=== PATIENT | female | born 1950 | race Caucasian/White ===

== ENCOUNTER 2024-05-26 19:47 | Inpatient (IN) | payer OTHER, MEDICARE, SELFPAY ==
[2024-05-26] VITALS (11 sets, daily range): BP systolic 102–119; BP diastolic 44–68; BMI 35.0; BMI 33.7
--- NOTE | 2024-05-26 15:47 | ED.GENMED ---
History of Present Illness
General
Chief Complaint: Abnormal Lab Value
Source: patient
Exam Limitations: none
Time Seen by Provider: 05/26/24 15:41
Nursing documentation reviewed up to this point in time: agreed with
History of Present Illness
History of Present Illness:
73-year-old female with past medical history of A-fib on Eliquis, hypertension, kidney disease on dialysis presents to the emergency department today with concerns of low hemoglobin. Patient present with daughter. Daughter reports that patient is
currently living at [facility] for medical rehab from her most recent hospitalization last month. Patient was admitted from April 19 to approximately May 19 for septic shock. During that hospitalization, she was started on Eliquis
when she went into A-fib, and was also put on oxygen. Patient now wears 3 L of oxygen daily. She had to receive blood transfusions at that time for low hemoglobin which at the time they attributed to chronic kidney disease. Patient states that at
the rehab facility, they checked her blood work daily and stated when they did have routine check of her blood work, they noted her hemoglobin to be 6.0. Baseline hemoglobin unknown. Patient is unsure if she has had a GI bleed before. Patient
denies dizziness, lightheadedness, chest pain, shortness of breath, abdominal pain, rectal bleeding, hematemesis. Of note, patient developed C. difficile during her last week of hospitalization and recently finished antibiotics.
Review of Systems
Review of Systems
All Other Systems: ROS reviewed and negative except as documented in HPI and ROS
Phy Exam
Physical Exam
Physical Exam:
General: Patient is well appearing and in no acute distress; non-toxic
Skin: Pallor noted, shingles rash noted to left anterior and posterior chest wall, maculopapular rash noted to inguinal folds
Head: Normocephalic, atraumatic
Eyes: Sclera non-icteric. EOMs intact.
Cardiac: Regular rate and rhythm, no murmurs
Peripheral Vascular: No lower extremity swelling or edema
Pulm: Normal respiratory effort, no wheezes, rales, or rhonchi
Abdomen: No abdominal tenderness to palpation, no palpable masses
Genitourinary: No perirectal masses or lesions, no carl bleeding from the rectum, dark loose stool noted within rectal vault
Neuro: CN II-XII intact, no focal neurologic deficits.
Psychiatric: Appropriate mood and affect.
Course
Orders/Labs/Results
Orders:
Orders
05/26/24 16:18
Type And Crossmatch [Type+Screen] Urgent
Complete Blood Count/With Diff Urgent
Comprehensive Metabolic Panel Urgent
05/26/24 17:24
ABO2 Urgent
[employer] Wristband Number:
Associate notified that ABO2 has been ordered: [id number]
Date: 05/26/24
Time: 16:50
Socket Puller ID: [id number]
Urinalysis Reflex To Culture Urgent
Date Specimen was Collected: 05/26/24
Time Specimen was Collected: 17:23
Urine Microscopic Reflex Cult Urgent
Stool Culture Urgent
MIGUEL ANGEL Source: Feces/Stool
Specimen Description:
Date Specimen was Collected: 05/26/24
Time Specimen was Collected: 17:23
Urine Culture Urgent
MIGUEL ANGEL Source: U
Specimen Description:
Date Specimen was Collected: 05/26/24
Time Specimen was Collected: 17:23
05/26/24 17:38
Blood Bank Products [* Blood Bank Products] Urgent
Blood Bank Products: *Packed RBC Leuko(PRBC's)
Quantity: 1
Transfuse Today: Yes
Reason: Anemia
05/26/24 18:00
Pantoprazole 80 mg/100 ml Nss [Protonix] 80 mg in 100 ml IV Q10H
Abnormal Lab Results
05/26/24 05/26/24
16:18 17:24
RBC 2.21 L 10^6/uL
(4.20-5.40)
Hgb 6.5 L* g/dL
(12.0-16.0)
Hct 20.7 L* %
(37.0-47.0)
MCHC 31.4 L g/dL
(33.0-37.0)
RDW 17.3 H %
(11.5-14.5)
Abs Immat Gran (auto) 0.1 H 10^3/uL
(0-0.05)
Immature Gran % 1.6 H %
(0-0.5)
BUN 18 H mg/dl
(7-17)
Creatinine 2.2 H mg/dL
(0.6-1.0)
Calcium 8.3 L mg/dl
(8.4-10.2)
Total Protein 5.5 L g/dl
(6.3-8.2)
Albumin 2.2 L g/dl
(3.5-5.0)
Ur Occult Blood Reflex 2+ A
(Negative)
Leukocyte Esterase Rfl 2+ A
(Negative)
Urine WBC (Reflex) 30-40 A /HPF
(0-5)
Urine Bacteria (Reflex) Many A
(Negative)
Urine Albumin (Reflex) 1+ A
(Neg - Trace)
Crossmatch IS Only See Detail
05/26/24 16:18
05/26/24 16:18
Vital Signs
Initial and Last Documented VS:
Initial Vital Signs
Temp Pulse Resp BP Pulse Ox
98.0 F 84 20 117/62 100
05/26/24 15:44 05/26/24 15:44 05/26/24 15:44 05/26/24 15:44 05/26/24 15:44
Last Documented Vital Signs
Temp Pulse Resp BP Pulse Ox
98.0 F 84 23 110/51 100
05/26/24 15:44 05/26/24 18:00 05/26/24 16:24 05/26/24 18:00 05/26/24 17:30
MDM/Problems Addressed
Differential Diagnosis Includes:
See below
MDM/Problems Addressed:
NUMBER AND COMPLEXITY OF PROBLEMS ADDRESSED AT THE ENCOUNTER
� Chronic conditions affecting care: Kidney disease on dialysis, A-fib on Eliquis, hypertension, hyperlipidemia
� Acute Exacerbation and/or Progression of Chronic Illness: Kidney disease
� Differential Diagnosis includes: Bleeding gastric ulcer, duodenal ulcer, bleeding colitis, spontaneous bleeding from Eliquis, anemia of chronic disease secondary to CKD
Laboratory Studies: Hemoglobin 6.5 today, 6 on lab work noted from [facility]; BUN 18 creatinine 2.2, GFR 23.24 unknown baseline
Other:
� Review of other/old records: No previous records in [facility] to review, no discharge summaries to review
� Clinical information was obtained by an independent historian: Spoke to daughter who was able to provide much of the medical history
� Prescriptions/Medications Considered but not given: n/a
� Further testing considered but not performed:
RISK OF COMPLICATIONS AND/OR MORBIDITY OR MORTALITY OF PATIENT MANAGEMENT
� Social determinants of health affecting care: n/a
� Discussion with other providers: ER attending
� Escalation of care including admission/observation vs risk of discharge considered:
73-year-old female presents emergency department today with concerns of a low hemoglobin noted incidentally on lab work. Patient is staying at [facility] for medical rehab from her recent hospitalization for septic shock. Patient has had to
receive blood transfusions for anemia before and this was attributed to chronic kidney disease. However today she does have dark stools that are Hemoccult positive. In light of this finding, as well as in light of her recent colitis, will admit
for workup of GI bleeding, patient will receive blood transfusion. There was concern about patient having no access to visitors of concern for recent COVID infection. When talking to daughter, it appears that she was COVID-positive on April 19,
2023, so this currently is not a concern. Patient did have C. difficile recently, however she finished her full course of antibiotics. I did allow patient's daughter to be present at bedside even though there is concern for communicable disease
however I do feel that the benefits outweigh the risk considering patient's issues with dementia and memory loss. I did advise patient's daughter to remain within the room with a mask on. Patient referred for admission
*Critical Care Note
Total Time (30-74mins, 75-104mins- exclusive of procedures): Not Applicable
ED Attending Note
-
Portions of this chart may have been created with voice recognition software.� Occasional wrong word or��sound alike� substitutions may have occurred due to the inherent limitations of voice recognition software.
Discharge Plan
Departure
Patient Disposition: Admit
Date of Disposition: 05/26/24
Time of Disposition: 17:59
Admit to: Med/Surg
Presentation/result/management discussed w/ accepting MD/DO: Hospitalist
Patient with high blood pressure during this ER visit?: No
Condition: Fair
Discharge Problem:
Anemia, Heme positive stool
Prescriptions:
No Action
amiodarone 200 mg Tablet
200 mg PO DAILY
miconazole nitrate 2 % Powder
1 applic TOPICAL TID
valacyclovir 500 mg Tablet
500 mg PO DAILY
Patient Comments:
05/26/24: take for 1 week from 05/22/24-05/30/24
acetaminophen 500 mg Tablet
500 mg PO Q8HPRN PRN (Reason: mild pain)
magnesium hydroxide [Milk of Magnesia] 400 mg/5 mL Suspension
30 ml PO [id number] PRN (Reason: no bm 3 days)
bisacodyl 10 mg Suppository
10 mg AR DAILYPRN PRN (Reason: if no result from mom)
pantoprazole 40 mg Tablet,Delayed Release (Dr/Ec)
40 mg PO DAILY
folic acid 1 mg Tablet
1 mg PO DAILY
montelukast 10 mg Tablet
10 mg PO DAILY
gabapentin 100 mg Capsule
100 mg PO DAILY
albuterol sulfate [Ventolin HFA] 90 mcg/actuation Hfa Aerosol Inhaler
2 puff INHALATION R Q6HPRN PRN (Reason: wheezing)
brompheniramine-phenylephrine 2-5 mg/5 mL Liquid
5 ml PO Q4HPRN PRN (Reason: cough/congestion)
midodrine 10 mg Tablet
10 mg PO TID
Rx Instructions:
Hold for SBP>130
rosuvastatin 5 mg Tablet
5 mg PO DAILY
zinc oxide 10 % Cream
1 applic TOPICAL TID
Rx Instructions:
L abdominal fold/sacral gluteal cleft
zinc oxide 10 % Cream
1 applic TOPICAL DAILYPRN PRN (Reason: soilage)
Rx Instructions:
left abdominal fold/sacral gluteal cleft
ferrous gluconate 324 mg (38 mg iron) Tablet
324 mg PO Q48H
melatonin 5 mg Tablet
5 mg PO HS
Dulera 200-5 mcg/actuation Hfa Aerosol Inhaler
2 puff INHALATION R BID
Eliquis 5 mg Tablet
5 mg PO BID
Referrals:
Devon Friedman MD [Family Provider] -
Interventions
Interventions:
*Risk Screen - Suicide Last Done: 05/26/24 15:59
*General Assessment Last Done: 05/26/24 15:59
*Neglect/Abuse Screening Last Done: 05/26/24 15:59
*ED COVID-19 Vaccine History Last Done: 05/26/24 15:59
Discharge Date and Time
Print Language: MALAYSIAN
[2024-05-26 16:33] LABS: % Basophils 0.5 % (0-2); % Eosinophils 2.3 % (0-6); % Immature Granulocytes 1.6 % (0-0.5); % Lymphocytes 30.4 % (20.5-51.1); % Monocytes 7.4 % (1.7-9.3); % Neutrophils 57.8 % (42.2-75.2); Absolute Eosinophils 0.2 10^3/uL (0-0.7); Absolute Immature Granulocytes 0.1 10^3/uL (0-0.05); Absolute Lymphocytes 2.5 10^3/uL (1.2-3.4); Absolute Monocytes 0.6 10^3/uL (0.1-0.6); Absolute Neutrophils 4.8 10^3/uL (1.4-6.5); Hematocrit 20.7 % (37.0-47.0); Hemoglobin 6.5 g/dL (12.0-16.0); Mean Corp Hgb Conc. 31.4 g/dL (33.0-37.0); Mean Corpuscular Hgb 29.4 pg (27.0-31.0); Mean Corpuscular Volume 93.7 fL (81.0-99.0); Mean Platelet Volume 9.5 fL (7.4-10.4); Nucleated Red Blood Cells % 0 %; Platelet Count 198 10^3/uL (130-400); Red Blood Cell Count 2.21 10^6/uL (4.20-5.40); Red Cell Dist. Width 17.3 % (11.5-14.5); White Blood Cell Count 8.2 10^3/uL (4.8-10.8)
[2024-05-26 16:51] LABS: ALT (SGPT) 26 U/L (0-35); AST (SGOT) 22 U/L (14-36); Albumin 2.2 g/dl (3.5-5.0); Alkaline Phosphatase 99 U/L (38-126); Blood Urea Nitrogen 18 mg/dl (7-17); Calcium 8.3 mg/dl (8.4-10.2); Carbon Dioxide 27 mmol/L (22-30); Chloride 103 mmol/L (98-107); Estimated Creatinine Clearance 24 ml/min; Glucose 73 mg/dl (70-99); Potassium 4.3 mmol/L (3.5-5.1); Sodium 136 mmol/L (135-145); Total Bilirubin 0.5 mg/dl (0.2-1.3); Total Protein 5.5 g/dl (6.3-8.2); eGFR 23.24
[2024-05-26 17:34] LABS: Urine Albumin 1+ (Neg - Trace); Urine Bilirubin Negative (Negative); Urine Character Very Cloudy (Clear); Urine Color Yellow; Urine Glucose Negative (Negative); Urine Ketone Negative (Negative); Urine Leukocyte 2+ (Negative); Urine Nitrite Negative (Negative); Urine Occult Blood 2+ (Negative); Urine Urobilinogen Negative (Neg - 1+)
[2024-05-26 17:48] LABS: Urine Bacteria Many (Negative); Urine Red Blood Cell 0-2 /HPF (0-2); Urine White Cell 30-40 /HPF (0-5)
--- NOTE | 2024-05-26 18:11 | HPS.HSE ---
Family Physician
-
Family Physician: Devon Friedman
Chief Complaint
-
Abnormal lab values
History of Present Illness
Patient is a 73-year-old female with past medical history significant for chronic kidney disease on dialysis, a-fib and recent history of c-diff colitis who presented to [facility] for evaluation of abnormal labs found with routine lab work.
Patient resides at [facility] for rehab post 30 day hospitalization at [facility] in [place]. Patient was admitted for septic shock and started HD during hospitalization and continues with HD at [facility]. Patient did receive
transfusion during previous hospitalization for anemia attributed to CKD. Today patient had routine lab work completed at [facility] resulting in Hgb 6.0, patient was asymptomatic and sent to ED for evaluation and treatment. Patient stool is
heme positive.
Medical History
Past Medical History
Past Medical History: Reports Other
Additional Past Medical History:
chronic kidney disease on dialysis
a-fib
herpes zoster
hyperlipidemia
hypoxic respiratory failure
Hx c-diff colitis
osteoarthritis
Past Surgical History: Reports Other
Additional Past Surgical History:
Left hip replacement
Social History
Tobacco: Former Smoker (quit 20 years ago)
Alcohol: Occasional
Drug: None
Personal: Single
Living: Care Home
Employment: Retired
Family History
Family History: Other (Mother: HTN, CAD; Sister: Colon Cancer)
Allergies / Home Medications
Allergies reflects when Allergies were last updated in [facility].
Home Medications with original date entered in [facility]
Allergy/Medication List:
Allergies
Allergy/AdvReac Type Severity Reaction Status Date / Time
cephalexin Allergy Unknown Verified 05/26/24 15:44
codeine Allergy Nausea / Verified 05/26/24 15:44
Vomiting
Home Medications
acetaminophen 500 mg tablet 500 mg PO Q8HPRN PRN mild pain 05/26/24
albuterol sulfate 90 mcg/actuation aerosol inhaler (Ventolin HFA) 2 puff inhalation R Q6HPRN PRN wheezing 05/26/24
amiodarone 200 mg tablet 200 mg PO DAILY 05/26/24
apixaban 5 mg tablet (Eliquis) 5 mg PO BID 05/26/24
bisacodyl 10 mg rectal suppository 10 mg WV DAILYPRN PRN if no result from mom 05/26/24
brompheniramine-phenylephrine 2 mg-5 mg/5 mL oral liquid 5 ml PO Q4HPRN PRN cough/congestion 05/26/24
ferrous gluconate 324 mg (38 mg iron) tablet 324 mg PO Q48H 05/26/24
folic acid 1 mg tablet 1 mg PO DAILY 05/26/24
gabapentin 100 mg capsule 100 mg PO DAILY 05/26/24
magnesium hydroxide 400 mg/5 mL oral suspension (Milk of MagnKOALA.CH) 30 ml PO [id number] PRN no bm 3 days 05/26/24
melatonin 5 mg tablet 5 mg PO HS 05/26/24
miconazole nitrate 2 % topical powder 1 applic topical TID under b/l breast,groin,ab 05/26/24
midodrine 10 mg tablet 10 mg PO TID 05/26/24
mometasone-formoterol HFA 200 mcg-5 mcg/actuation aerosol inhaler (Dulera) 2 puff inhalation R BID 05/26/24
montelukast 10 mg tablet 10 mg PO DAILY 05/26/24
pantoprazole 40 mg tablet,delayed release 40 mg PO DAILY 05/26/24
rosuvastatin 5 mg tablet 5 mg PO DAILY 05/26/24
valacyclovir 500 mg tablet 500 mg PO DAILY 05/26/24
zinc oxide 10 % topical cream 1 applic topical DAILYPRN PRN soilage 05/26/24
zinc oxide 10 % topical cream 1 applic topical TID 05/26/24
Review of Systems
-
History Source: Patient
Constitutional: Reports No Symptoms
EENT: Reports No Symptoms
Respiratory: Reports No Symptoms
Cardiac: Reports No Symptoms
Abdomen/GI: Reports No Symptoms
: Reports No Symptoms
Musculoskeletal: Reports No Symptoms
Skin: Reports No Symptoms
Neurological: Reports No Symptoms
Endocrine: Reports No Symptoms
Hematologic/Lymphatic: Reports No Symptoms
Psych: Reports No Symptoms
Physical Exam
Vital Signs
Vital Signs
Temp Pulse Resp BP Pulse Ox
98.0 F 84 23 110/51 100
05/26/24 15:44 05/26/24 18:00 05/26/24 16:24 05/26/24 18:00 05/26/24 17:30
Physical Exam
General: Well Developed, Well Nourished, No Apparent Distress, Comfortable and Conversant
HEENT: NormoCephalic, Moist mucous membranes, Atraumatic, PERRLA, [place] Conjunctivae, Nose Appears Normal and Ears Appear Normal
Respiratory: Clear and Non Labored Respirations
Cardiac: S1/S2 and Regular Rhythm; No Murmur, Rub or Gallop
Breast: Deferred by me
GI: Soft, Non Tender, Non Distended and Normal Bowel Sounds; No Organomegaly
Rectal: Deferred by Provider
Genito-urinary: Deferred by me
Musculoskeletal: No Clubbing, No Cyanosis and No Edema
Skin: Warm and Rash (rash under left breast wrapping around flank to left back; excoriation to perineal area)
Neuro: Awake, AO x 3 and Nonfocal/grossly intact
Hematologic/Lymphatic: No Lymphadenopathy
Psych: Calm and Intact Judgment/Insight
Laboratory Results
-
05/26/24 16:18
05/26/24 16:18
Laboratory Results
Total Bilirubin 0.5 mg/dl (0.2-1.3) 05/26/24 16:18
AST 22 U/L (14-36) 05/26/24 16:18
ALT 26 U/L (0-35) 05/26/24 16:18
Alkaline Phosphatase 99 U/L (38-126) 05/26/24 16:18
Data Reviewed
-
Lab Data: Labs Reviewed by me (Hgb 6.5, Hct 20.7, BUN 18, Creat 2.2)
Impression/Plan
-
IMPRESSION/PLAN:
#Acute GI bleed
#anemia
Hgb 6.5/Hct 20.7
Heme positive stool
frequent loose stools with recent C. Diff history
- Admit to telemetry
- 1 unit PRBCs
- Follow H/H in AM
- Consult GI
- hold Eliquis
- Protonix BID
- Check C. diff and norovirus
- continue ferrous gluconate
- check iron studies
#chronic kidney disease on dialysis
BUN 18, Creat 2.2
HD schedule --
- Consult nephrology
- follow BMP
- continue midodrine
#acute urinary retention
#UTI
straight cath in ED with 1100cc cloudy yellow urine out, placed larios for acute retention
- UA PROCESS TECH
- start Zosyn
#a-fib
- continue amiodarone
- hold Eliquis
#herpes zoster
rash under left breast that round to left back
- continue valacyclovir
#hyperlipidemia
- continue rosuvastatin
#hypoxic respiratory failure
- continue O2 PRN, titrate as needed
#Hx c-diff colitis
- start PO Vanco fro prophylaxis
#osteoarthritis
Code status: DNR
DVT Prophylaxis: SCDs
[2024-05-26] MEDS: PROTONIX 100 IV (18:16)
--- NOTE | 2024-05-26 18:31 | EDRN ---
Per the pts daughter, the pt tested + COVID on April 19, NOT May 19.
Also the pt recently finished antibiotic treatment for C. Diff.
the pt was admitted at [facility] in [place] for approx 30 days prior to being placed at [facility] one week ago for rehab. the pt is currently Non-ambulatory
the pt started treatment for Shingles on May 22
--- NOTE | 2024-05-26 18:47 | W.PN.UPDATE ---
Update Note
Progress Note Update
I saw and examined the patient.
The SPRAY DRY OPERATOR or PA's note was reviewed and I agree with the note.
Comment: 73-year-old female with past medical history of recent C. difficile, recently diagnosed herpes zoster, ESRD on hemodialysis, history of septic shock secondary to groin abscess, paroxysmal atrial fibrillation who had prolonged
hospitalization at [facility] and recently moved to [place] came here today with anemia. Had urinary retention in the ED where Griffiths catheter was inserted. Urine is very cloudy appears to have UTI. Start antibiotics. Start p.o.
vancomycin as prophylaxis given recent C. difficile. Still having loose stool. Check C. difficile, norovirus. Continue with valacyclovir. Consult ID. Consult GI and nephrology. DC PPI drip. Start PPI twice daily for now. Heme positive stool.
Denies any previous history of colonoscopy. CODE STATUS discussed. DNR
I spent a total of 79 minutes with the patient or on the floor. More than 50% of this time involved counseling and coordination of care.
[2024-05-26 19:28] LABS: Iron 83 ug/dl (37-170)
[2024-05-26] MEDS: PROTONIX IV 40 MG IV (19:28)
[2024-05-26] MEDS: NSS (PRESERVATIVE FREE) 10 ML IV (19:28)
[2024-05-26 19:37] LABS: Percent Saturation 44 % (20-50); Total Iron Binding Capacity 188 ug/dl (265-497)
[2024-05-26 20:20] LABS: Folate > 20.0 ng/ml (2.76-20); Vitamin B12 903 pg/ml (239-931)
--- NOTE | 2024-05-26 22:00 | PTCARENOTE ---
Rec'd Patient from ER. Stable vitals. Blood transfusing as ordered. No complaints. SR in 70s on tele. POC reviewed with patient.
[2024-05-26] MEDS: SYMBICORT 160/4.5 MCG INHALER INH (22:35)
[2024-05-26] MEDS: ZOSYN 50 IV (23:10)
[2024-05-26] MEDS: ZINC OXIDE OINTMENT 1 APPLIC TOPICAL (23:11)
[2024-05-26] MEDS: DESENEX/MITRAZOL/ZEASORB 1 APPLIC TOPICAL (23:11)
[2024-05-26] MEDS: FIRVANQ 125 MG PO (23:11)
[2024-05-27] VITALS (7 sets, daily range): BP systolic 93–112; BP diastolic 43–58; BMI 33.7; BMI 34.3
[2024-05-27] MEDS: FIRVANQ 125 MG PO ×3 (05:28→22:10)
[2024-05-27] MEDS: ZOSYN 50 IV (05:28)
[2024-05-27] MEDS: SYMBICORT 160/4.5 MCG INHALER 2 PUFF INH ×2 (08:17→19:19)
--- NOTE | 2024-05-27 08:40 | WOUNDNOTE ---
L THIGH (MEDIAL UPPER)
--- NOTE | 2024-05-27 08:40 | WOUNDNOTE ---
L THIGH (UPPER ANTERIOR)(undermines approximately 3cm medially)
--- NOTE | 2024-05-27 08:41 | WOUNDNOTE ---
L CALF (POSTERIOR MEDIAL)
--- NOTE | 2024-05-27 08:42 | WOUNDNOTE ---
BUTTOCKS/THIGH (POSTERIOR)
--- NOTE | 2024-05-27 08:43 | WOUNDNOTE ---
L CHEST (UNDER BREAST AREA)
--- NOTE | 2024-05-27 08:50 | WOUNDNOTE ---
[facility] RN note: Patient admitted with GIB, UTI. Patient admitted from [facility]. She was at [facility] prior.
See H&P for complete history.
PMH: CKD on HD, a fib (Eliquis), recent c diff, herpes zoster, obesity, pressure injuries, L thigh full thickness wound suspect was an abscess originally. Patient stated she had surgery on her L thigh (I+D?).
Wound Location and type/assessment: Patient admitted with: L anterior upper thigh full thickness wound to subcutaneous layer, pink that can be visualized, undermines medially about 3cm, mod-large amount of murky serous drainage. Skin mild red
around wound suspect r/t moisture. L medial upper thigh with a linear dermal ulcer suspect from rubbing and previous diaper use. Sacral crease stage 2 pressure injury along with MASD and bilateral sacral buttocks stage 2 pressure injuries along with
MASD. Perineal MASD. L medial posterior thigh linear red ecchymotic area. Small abrasions on R posterior ankle/calf. Heels slow to libby red/boggy. L anterior, lateral and posterior chest/back with scattered zoster lesions. Patient on Valtrex.
Appetite: fair.
Pressure redistribution devices in place: [employer] Accumax. Heels off bed with pillow.
Plan: ABD pad applied on L flank/back lesions. L thigh packing/dressing changed. Zinc barrier ointment applied to sacral/buttocks/perineum. Do not think a silicone foam will work on sacrum d/t patient still having loose stools. Patient reports
diarrhea improved. Silicone border foam applied to L calf. Patient turned to L semi side lying position with help from RT Peace. Heels off bed with pillow with air chair cushion on top. Discussed with RN Thelma who plans to apply a Waffle air
overlay and switch to soft type o2 tubing around ears. t/c SPD and ordered a bariatric air chair c cushion.
Updated including murky drainage from L thigh wound and confirmed orders with Dr. Marcelino. Dakin't packing to be ordered for L thigh.
Care plan to be updated and will follow as needed.
Note to case management of equipment requested for discharge: Air mattress at [facility] is not already in place.
Recommend follow up at wound care center upon discharge.
--- NOTE | 2024-05-27 09:11 | CON.GI ---
Consultation
-
Date/Time Consultation Requested: 05/26/2024,23:16
Date/Time Consultation Performed: 05/27/2024,09:10
Requesting Provider: Evon Gotti
Performing Provider: Sylvain Goodwin
Reason for Consultation: Anemia/Stool heme positive
Medical History
Chief Complaint / HPI
Chief Complaint: Stool positive for occult blood
History of Present Illness:
Patient is a 73-year-old female with past medical history of end-stage renal disease, on hemodialysis 3 times a week on Saturday, and Saturday for 3 hours. She was recently prolonged hospitalization at [facility] for septic shock
secondary to groin abscess, was recently treated for C. difficile and herpes zoster infection. She was recently moved to [facility] rehab for physical therapy and Occupational Therapy and presented to emergency with asymptomatic anemia. She had
urinary retention in the ED, Griffiths catheter was inserted, and started on treatment for UTI based on her urine appearance and urine analysis report.
GI consulted for heme positive stools. According to the patient and her daughter she has poor diet with mostly fast foods soft foods, and mostly lacks any seafood, vegetables, are nutritious food. She has had kidney disease and it has slowly
progressed and was recently started on hemodialysis. She had recent episodes of sepsis due to groin abscess and C. difficile infection. She has arthritis and uses 15 to 20 tablets of ibuprofen in a month depending upon the pain severity and she
was recently started on Eliquis for atrial fibrillation last month. She reports recent weight loss due to being sick for the past 2 months, being nonambulatory, and decreased appetite.
Patient had 3-4 blood transfusions in April and 1 blood transfusion in May 26, 2024.
She denies any source of bleeding, heavy alcohol consumption, any recent travel, abdominal pain, blood in stools, hematemesis, GERD, indigestion, alternating bowel habits, shortness of breath, dizziness, headache, palpitations, decreased
concentrations, any past history of thyroid issues or any family history of blood disorders.
Past Medical History
Past Medical History: Arrhythmias (A.fib ,started on eliquis last month in ), Hypercholesterolemia, Renal Failure (Stage 4, On hemodialysis 3 days a week (Sat,sat,saturday) started last week) and Other (Recently diagnosed herpes zoster,
recently treated C. difficile, hypoxic respiratory failure, osteoarthritis)
Past Surgical History: Orthopedic (Left hip replacement)
Social History
Tobacco: Former Smoker (Quit 20 years ago)
Alcohol: Occasional
Drug: None
Personal: Single
Living: Care Home ([facility])
Employment: Retired
Family History
Family History: Cancer (Sister of colon cancer at the age of 73) and Hypertension (Mother)
Allergies / Home Medications
Allergy/AdvReac Type Severity Reaction Status Date / Time
cephalexin Allergy Unknown Verified 05/26/24 15:44
codeine Allergy Nausea / Verified 05/26/24 15:44
Vomiting
�Medication �Instructions �Recorded
acetaminophen 500 mg tablet 500 mg PO Q8HPRN PRN mild pain 05/26/24
albuterol sulfate 90 mcg/actuation 2 puff inhalation R Q6HPRN PRN 05/26/24
aerosol inhaler (Ventolin HFA) wheezing
amiodarone 200 mg tablet 200 mg PO DAILY 05/26/24
apixaban 5 mg tablet (Eliquis) 5 mg PO BID 05/26/24
bisacodyl 10 mg rectal suppository 10 mg ID DAILYPRN PRN if no result 05/26/24
from mom
brompheniramine-phenylephrine 2 5 ml PO Q4HPRN PRN cough/congestion 05/26/24
mg-5 mg/5 mL oral liquid
ferrous gluconate 324 mg (38 mg 324 mg PO Q48H 05/26/24
iron) tablet
folic acid 1 mg tablet 1 mg PO DAILY 05/26/24
gabapentin 100 mg capsule 100 mg PO DAILY 05/26/24
magnesium hydroxide 400 mg/5 mL 30 ml PO [id number] PRN no bm 3 days 05/26/24
oral suspension (Milk of Itzel)
melatonin 5 mg tablet 5 mg PO HS 05/26/24
miconazole nitrate 2 % topical 1 applic topical TID under b/l 05/26/24
powder breast,groin,ab
midodrine 10 mg tablet 10 mg PO TID 05/26/24
mometasone-formoterol HFA 200 2 puff inhalation R BID 05/26/24
mcg-5 mcg/actuation aerosol
inhaler (Dulera)
montelukast 10 mg tablet 10 mg PO DAILY 05/26/24
pantoprazole 40 mg tablet,delayed 40 mg PO DAILY 05/26/24
release
rosuvastatin 5 mg tablet 5 mg PO DAILY 05/26/24
valacyclovir 500 mg tablet 500 mg PO DAILY 05/26/24
zinc oxide 10 % topical cream 1 applic topical DAILYPRN PRN 05/26/24
soilage
zinc oxide 10 % topical cream 1 applic topical TID 05/26/24
Review of Systems
-
All other systems: A 12 pt ROS was Negative except as stated above in HPI
Vital Signs
Temp Pulse Resp BP Pulse Ox
98.1 F 75 16 96/49 100
05/27/24 07:20 05/27/24 07:20 05/27/24 07:20 05/27/24 07:20 05/27/24 07:20
Physical Exam
Exam
General: Respiratory Distress (On 2 L oxygen via nasal cannula) and Other (Sitting in bed, nasal cannula in place, fall risk band on wrist, nonambulatory)
HEENT: Anicteric and Moist Mucous Membranes
Respiratory: Clear (Normal vesicular breathing, no wheezes or rales)
Cardiac: S1/S2 and Regular Rhythm
GI: Soft, Non Tender, Non Distended and Normal Bowel Sounds
Skin: Warm and Dry
Neuro: Oriented and No Motor Deficits
Psych: Calm
Results
WBC 8.2 10^3/uL (4.8-10.8) 05/26/24 16:18
Hgb 6.5 g/dL (12.0-16.0) L* 05/26/24 16:18
Hct 20.7 % (37.0-47.0) L* 05/26/24 16:18
MCV 93.7 fL (81.0-99.0) 05/26/24 16:18
Plt Count 198 10^3/uL (130-400) 05/26/24 16:18
Absolute Neuts (auto) 4.8 10^3/uL (1.4-6.5) 05/26/24 16:18
Sodium 136 mmol/L (135-145) 05/26/24 16:18
Potassium 4.3 mmol/L (3.5-5.1) 05/26/24 16:18
Chloride 103 mmol/L (98-107) 05/26/24 16:18
Carbon Dioxide 27 mmol/L (22-30) 05/26/24 16:18
BUN 18 mg/dl (7-17) H 05/26/24 16:18
Creatinine 2.2 mg/dL (0.6-1.0) H 05/26/24 16:18
Calcium 8.3 mg/dl (8.4-10.2) L 05/26/24 16:18
Total Bilirubin 0.5 mg/dl (0.2-1.3) 05/26/24 16:18
AST 22 U/L (14-36) 05/26/24 16:18
ALT 26 U/L (0-35) 05/26/24 16:18
Alkaline Phosphatase 99 U/L (38-126) 05/26/24 16:18
Diagnostic Image Results:
CXR 05/27/2024
FINDINGS:
Lines and tubes: Right-sided central venous catheter is seen with tip at the cavoatrial junction.
Lungs: Right basilar opacity is noted. There is mild elevation of the right hemidiaphragm. No pleural effusion or pneumothorax.
Heart: Cardiac and mediastinal contours are within the limits of normal.
Osseous structures: There is possible mild dextroscoliosis of the thoracic spine.
IMPRESSION:
Right basilar opacity which at least in part could represent pneumonia.
Prior GI Procedures: None
EGD: None
Colonoscopy: None
Assessment / Plan
-
IMPRESSION
Patient is a 73-year-old female with end-stage renal disease on hemodialysis, recently discharged from [facility] after being treated for sepsis secondary to groin abscess, recent C. difficile infection, recent herpes zoster infection,
admitted for workup of anemia, currently being treated for UTI and C. difficile. GI consulted for heme positive stools.
ASSESSMENT/PLAN
Based on patient's past medical history, it appears that anemia could be secondary to chronic kidney disease or it could be cytokine mediated anemia
Patient's age is suggestive of diverticulosis that might have caused the heme positive stools from slow degradation of blood
Patient's ibuprofen use could suggest a peptic ulcer disease
Patient has normal MCV and decreased GFR, which could be related to monoclonal gammopathy
Given the patient's recent weight loss and colon cancer history in sister, a colonoscopy is indicated
PLAN
Continue antibiotics to treat the UTI and C. difficile
Serum protein electrophoresis to rule out monoclonal gammopathy
Follow stool studies
CT abdomen and pelvis to assess diverticulitis
Avoid any NSAIDs
Keep trending hemoglobin levels and serum creatinine levels
Assess the patient for her hemodialysis session due today
Once the patient is stabilized can consider endoscopy/colonoscopy inpatient versus outpatient
Feces/Stool Bicomt32/10/24
C. difficile GDH Antigen & Toxins - Final
���C. difficile antigen positive, toxin negative.
���Clostridium difficile present, but toxin not detected.
���Patient may be a carrier, colonized with nontoxinogenic
���strain or the level of toxin in sample is below detection
���limits. This information should be used in conjunction with
���the patient's clinical history.
- Final
���Negative for Norovirus GI and GII.
Salmonella/Shigella Culture - Pending
Campylobacter Culture - Pending
Shiga Toxin Test - Pending
-
-
Thank you for consultation and allowing me to participate in the patient's care. Please call the division director GI physician during the after hours with any questions or concerns.
[2024-05-27] MEDS: NEURONTIN 100 MG PO (09:28)
[2024-05-27] MEDS: SINGULAIR 10 MG PO (09:28)
[2024-05-27] MEDS: FOLVITE 1 MG PO (09:29)
[2024-05-27] MEDS: PACERONE 200 MG PO (09:29)
[2024-05-27] MEDS: ProAmatine 10 MG PO ×3 (09:32→17:00)
[2024-05-27] MEDS: CRESTOR 5 MG PO (09:32)
[2024-05-27] MEDS: VALTREX 500 MG PO (09:33)
[2024-05-27] MEDS: DESENEX/MITRAZOL/ZEASORB 1 APPLIC TOPICAL ×3 (09:33→22:48)
[2024-05-27] MEDS: NSS (PRESERVATIVE FREE) 10 ML IV ×2 (09:34→22:47)
[2024-05-27] MEDS: PROTONIX IV 40 MG IV ×2 (09:34→22:46)
[2024-05-27] MEDS: ZINC OXIDE OINTMENT 1 APPLIC TOPICAL ×3 (09:34→22:48)
--- NOTE | 2024-05-27 10:23 | PTCARENOTE ---
Pt BP via automatic machine this AM was 96/49. AM meds administered including standing midodrine order. made aware, instructed to obtain manual BP on both arms. HERLINDA with manual BP of 96/52. MERLENE with manual BP of 98/50. made aware of readings,
no new orders at this time. This RN also noted no larios order in chart this AM, contacted MD to order, MD instructed this RN to pull larios. Larios pulled at 1015 this AM, will recheck with bladder scan if no urine output by 1615. Wound care orders
placed by WOC RN this AM, will provide wound care today. Static air overlay placed on pts bed. Pt requesting soft and bite sized diet this AM, notified, verbal order placed for this diet by this RN. Pt resting comfortably in bed at this time.
--- NOTE | 2024-05-27 10:49 | W.PN.HOSP.TC ---
Today's Communication/Plan
-
Monitor vital signs see plan
Continue with antibiotics, continue p.o. Vanco prophylaxis
Continue with valacyclovir
HD today
Continue to monitor hemoglobin
Monitor hemoglobin
Hold Eliquis
PT/OT
Continue with midodrine
Follow urine culture
Wean oxygen as tolerated
Get records
Assessment / Plan
Assessment / Plan
General: Well Developed, Well Nourished, No Apparent Distress, Comfortable and Conversant
HEENT: NormoCephalic, Moist mucous membranes, Atraumatic, PERRLA, [place] Conjunctivae, Nose Appears Normal and Ears Appear Normal
Respiratory: Clear and Non Labored Respirations
Cardiac: S1/S2 and Regular Rhythm; No Murmur, Rub or Gallop
Breast: Deferred by me
GI: Soft, Non Tender, Non Distended and Normal Bowel Sounds
Musculoskeletal: left thigh wound
Skin: Warm and Rash (rash under left breast wrapping around flank to left back; excoriation to perineal area)
Neuro: Awake, AO x 3 and Nonfocal/grossly intact
Psych: Calm and Intact Judgment/Insight
Anemia with heme + stool
likely Could be exacerbated by Eliquis
Hgb 6.5/Hct 20.7; Status post 1 unit blood on admission. Repeat hemoglobin pending
Heme positive stool
frequent loose stools with recent C. Diff history
GI following
- Consult GI
- hold Eliquis
- Protonix BID
Norovirus negative, C. difficile toxin negative however antigen positive
Prolonged recent hospitalization at [facility]. Requested records. Recently moved to [facility]
Per daughter it appeared that patient had septic shock there secondary to left groin abscess. then later developed renal failure, Cdiff.
Acute hypoxic respiratory insufficiency likely secondary to pneumonia
Monitor with antibiotics
#ESRD on HD
HD schedule
appears to be making urine as ED RN cathed her for 1100cc urine, cloudy
- Consulted nephrology
- continue midodrine
#acute urinary retention
#UTI
straight cath in ED with 1100cc cloudy yellow urine out, placed [facility] output
cw abx
follow urine cx
ID evaluation
#suspect par a-fib
- continue amiodarone
- hold Eliquis
check EKG
#herpes zoster
rash under left breast that round to left back, some appear to be getting better
- continue valacyclovir
#hyperlipidemia
- continue rosuvastatin
- continue O2 PRN, titrate as needed
#Hx c-diff colitis
- start PO Vanco fro prophylaxis
#osteoarthritis
Code status: DNR
DVT Prophylaxis: heparin
I spent a total of 52 minutes with the patient or on the floor. More than 50% of this time involved counseling and coordination of care.
Anticipated Discharge: > 48 hours
Subjective/Interval History
-
Date of Service: May 27, 2024
Denies pain
Objective Data
-
Labs:
Laboratory Results
05/27/24
09:13
WBC Pending
Hgb Pending
Hct Pending
Plt Count Pending
Sodium Pending
Potassium Pending
Chloride Pending
Carbon Dioxide Pending
BUN Pending
Creatinine Pending
Glucose Pending
Calcium Pending
Vital Signs:
Vital Signs
Temp Pulse Resp BP Pulse Ox
98.1 F 75 16 96/52 100
05/27/24 07:20 05/27/24 09:29 05/27/24 07:20 05/27/24 10:00 05/27/24 07:20
I&O
05/26/24 05/27/24 05/28/24
06:59 06:59 06:59
Intake Total 350 / 350
Output Total 150 / 150
Balance 200 / 200
[2024-05-27 10:59] LABS: % Basophils 0.5 % (0-2); % Eosinophils 2.3 % (0-6); % Immature Granulocytes 2.1 % (0-0.5); % Lymphocytes 37.3 % (20.5-51.1); % Monocytes 7.9 % (1.7-9.3); % Neutrophils 49.9 % (42.2-75.2); Absolute Eosinophils 0.1 10^3/uL (0-0.7); Absolute Immature Granulocytes 0.1 10^3/uL (0-0.05); Absolute Lymphocytes 2.1 10^3/uL (1.2-3.4); Absolute Monocytes 0.5 10^3/uL (0.1-0.6); Absolute Neutrophils 2.9 10^3/uL (1.4-6.5); Hematocrit 26.4 % (37.0-47.0); Mean Corp Hgb Conc. 30.3 g/dL (33.0-37.0); Mean Corpuscular Hgb 28.8 pg (27.0-31.0); Nucleated Red Blood Cells % 0 %; Platelet Count 171 10^3/uL (130-400); Red Blood Cell Count 2.78 10^6/uL (4.20-5.40); Red Cell Dist. Width 18.7 % (11.5-14.5); White Blood Cell Count 5.7 10^3/uL (4.8-10.8)
[2024-05-27 11:12] LABS: Blood Urea Nitrogen 22 mg/dl (7-17); Calcium 8.5 mg/dl (8.4-10.2); Carbon Dioxide 27 mmol/L (22-30); Chloride 104 mmol/L (98-107); Estimated Creatinine Clearance 20 ml/min; Glucose 65 mg/dl (70-99); Potassium 4.5 mmol/L (3.5-5.1); Sodium 139 mmol/L (135-145); eGFR 19.02
--- NOTE | 2024-05-27 11:25 | CON.ID ---
Consultation
-
Date/Time Consultation Requested: 05/26/24 23:16
Date/Time Consultation Performed: 05/26/24 11:25
Requesting Provider: Shen GIBSON
Performing Provider: Dr Glass
Reason for Consultation: UTI recurrent C diff
Chief Complaint / Past History
Chief Complaint
Abnormal lab values
History of Present Illness
Ms Pérez is a 73 year old female with recently declared ESRD on HD via tunneled line, recent C difficile colitis who presented here when routine lab work found hgb of 6 and heme positive stool. Note recent hospitalization at [facility]
(04/19- ~05/19) for septic shock due to groin abscess with treatment complicated by C difficile, COVID and pneumonia. Her stay at rehab has been complicated by herpes zoster infection below the L breast. Patient denies dizziness, lightheadedness,
chest pain, shortness of breath, abdominal pain, rectal bleeding, and hematemesis. Of note found to have urinary retention with 150 ccs of urine drained with larios placement. Denies: dysuria, urgency, frequency, malodorous urine, suprapubic
tenderness, flank tenderness. Has itching with the open superficial wounds below the L breast without pain.
Since arrival here patient has been afebrile, bp initially stable now running 90s/50s, HR 80s, RR teens, wbc initially 8.2 today 5.7, hgb initially 6.5 today 8.0, plt 171, no L shift, cr on arrival 2.2 today 2.6, K 4.5, t bili 0.5, ast 22, alkt 26,
alk phos 99, UA 30-40 wbc/hpf and many bacteria, hep c ab pending, CXR: right basilar opacity, mrsa screen pending, urine culture pending, C difficile ag positive toxin negative,
Past History
Additional Past Medical History:
chronic kidney disease on dialysis
a-fib
herpes zoster
hyperlipidemia
hypoxic respiratory failure
Hx c-diff colitis
osteoarthritis
Additional Past Surgical History:
Left hip replacement
Allergy History:
cephalexin Allergy (Verified 05/26/24 15:44)
Unknown
codeine Allergy (Verified 05/26/24 15:44)
Nausea / Vomiting
Medications Reviewed: Yes
Social History
Tobacco: Former Smoker
Alcohol: Occasional
Drug: None
Family History
Family History: Other (sister: colon cancer)
Review of Systems
Review of Systems
General: Negative Fever or Chills
All systems: All other systems were reviewed and were negative
Vital Signs
Temp Pulse Resp BP Pulse Ox
98.1 F 75 16 96/52 100
05/27/24 07:20 05/27/24 09:29 05/27/24 07:20 05/27/24 10:00 05/27/24 07:20
Physical Exam
Physical Exam
Constitutional: No Acute Distress
Cardiovascular: Regular Rate and S1/S2; Negative Murmur or Rub
Pulmonary: Clear and Symmetric; Negative Wheezes, Rales or Rhonchi
Gastrointestinal: Soft, Non Tender, Non Distended and Normal Bowel Sounds
Skin: Warm, Dry and Rash (open superficial wounds in dermatomal distribution under L breast); Negative Jaundice
Lab / Diagnostic Study Results
05/27/24 09:13
05/27/24 09:13
Abs Immat Gran (auto) 0.1 10^3/uL (0-0.05) H 05/27/24 09:13
Absolute Neuts (auto) 2.9 10^3/uL (1.4-6.5) 05/27/24 09:13
Absolute Lymphs (auto) 2.1 10^3/uL (1.2-3.4) 05/27/24 09:13
Absolute Monos (auto) 0.5 10^3/uL (0.1-0.6) 05/27/24 09:13
Absolute Basos (auto) 0.0 10^3/uL (0-0.2) 05/27/24 09:13
Immature Gran % 2.1 % (0-0.5) H 05/27/24 09:13
Neutrophils % 49.9 % (42.2-75.2) 05/27/24 09:13
Lymphocytes % 37.3 % (20.5-51.1) 05/27/24 09:13
Monocytes % 7.9 % (1.7-9.3) 05/27/24 09:13
Eosinophils % 2.3 % (0-6) 05/27/24 09:13
Basophils % 0.5 % (0-2) 05/27/24 09:13
Microbiology Results
Micro:
05/26/24 17:24 C. difficile GDH Antigen & Toxins - Final
Feces/Stool C. difficile antigen positive, toxin negative.
Clostridium difficile present, but toxin not detected.
Patient may be a carrier, colonized with nontoxinogenic
strain or the level of toxin in sample is below detection
limits. This information should be used in conjunction with
the patient's clinical history.
- Final
Negative for Norovirus GI and GII.
05/26/24 17:24 Urine Culture - Pending
Urine
05/26/24 17:24 Salmonella/Shigella Culture - Pending
Feces/Stool Campylobacter Culture - Pending
Shiga Toxin Test - Pending
05/26/24 23:43 MRSA Screen - Pending
Nose
Assessment / Plan
Asymptomatic Bacteriuria
Treated Pneumonia with resolving infiltrates
Colonization with C difficile
Shingles - resolving
ESRD on HD
- no need for antibiotics for asymptomatic bacteriuria - risks > benefits given colonization with c diff
- will follow up CT a/p
- can continue oral vanc BID x3 more days given recent exposure to zosyn, add probiotics
- continue enhanced contact precautions for C difficile while in house; the zoster rash is covered with a loose dressing
- continue valtrex for 7-10 days
- no objection to egd/colonoscopy from ID perspective
follow clinically
Care Review
Plan reviewed with: Physician (Dr Roberts - no urinary sympt)
[2024-05-27] MEDS: FLEXBUMIN 25% FOR HEMODIALYSIS 12.5 GRAMS IV ×2 (13:46→15:17)
[2024-05-27] MEDS: MANNITOL 25% 12.5 GRAMS IV (13:52)
--- NOTE | 2024-05-27 13:54 | W.PN.NEPH.HD ---
Assessment
-
Seen on HD> no complaints. BP low, access ok
Progress Note - Hemodialysis
-
Date of Service: May 27, 2024
Duration: 30 minutes and 3 hours
Potassium Bath: 3
Calcium Bath: 2.5
Opti-Dialyzer: 160
Ultrafiltration: Other (1kg)
Blood Flow: 400
Dialysate Flow: 600
Heparin: no
EPO: [id number]
--- NOTE | 2024-05-27 14:22 | CM ---
Patient seen at bedside. IA completed
HD today
Dx: Acute GIB, anemia, ESRD on HD
Prolonged hospitalization at [facility]. 04/19-05/19
Daughter lives in [place] - wanted her mom closer & now at [facility] and receiving dialysis. Per daughter she potentially may be LTC.
Patient prior to 04/19 was independent, driving and living in [place] in a [address] trailer community.
PT/OT eval
PCP: [facility] ([place], [place])
Pharmacy: [facility]
PLAN: [facility]
Report #: [phone]
Fax #: [phone]
[2024-05-27] MEDS: RETACRIT 10000 UNITS IV (14:27)
--- NOTE | 2024-05-27 16:22 | W.CON.NEPH ---
Consultation
-
Date/Time Consultation Requested: 05/27/2024 9 AM
Date/Time Consultation Performed: 05/27/2024 12 PM
Requesting Provider: Dr. Marcelino
Performing Provider: Dr Allan
Reason for Consultation: ESRD
Medical History
-
Chief Complaint: anemia
History of Present Illness:
Patient is a 73 year old female who had initially presented to a local emergency room near her home and says that she was airlifted to [facility]. There she was treated for septic shock due to a groin abscess which is copied by
C. difficile COVID pneumonia. She developed acute kidney injury requiring initiation of dialysis. She does not recall having chronic kidney disease previously though the record suggest that she did. She was in the hospital for up to 30 days and
ultimately was sent to [facility] for rehabilitation. While there she had blood work performed which had shown a hemoglobin of 6.0 with heme positive stool and was sent to the emergency room. We are asked to assist with management of her
dialysis issues. Griffiths catheter was discontinued this morning.
Past Medical History
ESRD?
a-fib
herpes zoster
hyperlipidemia
hypoxic respiratory failure
Hx c-diff colitis
osteoarthritis
Left hip replacement
Social History
Tobacco: Former Smoker
Alcohol: Occasional
Family History
HT, CAD, Colon CA
Allergies / Home Medications
Allergy/AdvReac Type Severity Reaction Status Date / Time
cephalexin Allergy Unknown Verified 05/26/24 15:44
codeine Allergy Nausea / Verified 05/26/24 15:44
Vomiting
�Medication �Instructions �Recorded �Confirmed �Type
acetaminophen 500 mg tablet 500 mg PO Q8HPRN PRN mild pain 05/26/24 05/26/24 History
albuterol sulfate 90 mcg/actuation 2 puff inhalation R Q6HPRN PRN 05/26/24 05/26/24 History
aerosol inhaler (Ventolin HFA) wheezing
amiodarone 200 mg tablet 200 mg PO DAILY 05/26/24 05/26/24 History
apixaban 5 mg tablet (Eliquis) 5 mg PO BID 05/26/24 05/26/24 History
bisacodyl 10 mg rectal suppository 10 mg [place] DAILYPRN PRN if no result 05/26/24 05/26/24 History
from mom
brompheniramine-phenylephrine 2 5 ml PO Q4HPRN PRN cough/congestion 05/26/24 05/26/24 History
mg-5 mg/5 mL oral liquid
ferrous gluconate 324 mg (38 mg 324 mg PO Q48H 05/26/24 05/26/24 History
iron) tablet
folic acid 1 mg tablet 1 mg PO DAILY 05/26/24 05/26/24 History
gabapentin 100 mg capsule 100 mg PO DAILY 05/26/24 05/26/24 History
magnesium hydroxide 400 mg/5 mL 30 ml PO [id number] PRN no bm 3 days 05/26/24 05/26/24 History
oral suspension (Milk of Magnesia)
melatonin 5 mg tablet 5 mg PO HS 05/26/24 05/26/24 History
miconazole nitrate 2 % topical 1 applic topical TID under b/l 05/26/24 05/26/24 History
powder breast,groin,ab
midodrine 10 mg tablet 10 mg PO TID 05/26/24 05/26/24 History
mometasone-formoterol HFA 200 2 puff inhalation R BID 05/26/24 05/26/24 History
mcg-5 mcg/actuation aerosol
inhaler (Dulera)
montelukast 10 mg tablet 10 mg PO DAILY 05/26/24 05/26/24 History
pantoprazole 40 mg tablet,delayed 40 mg PO DAILY 05/26/24 05/26/24 History
release
rosuvastatin 5 mg tablet 5 mg PO DAILY 05/26/24 05/26/24 History
valacyclovir 500 mg tablet 500 mg PO DAILY 05/26/24 05/26/24 History
zinc oxide 10 % topical cream 1 applic topical DAILYPRN PRN 05/26/24 05/26/24 History
soilage
zinc oxide 10 % topical cream 1 applic topical TID 05/26/24 05/26/24 History
Review of Systems
-
no CP/SOB
All other systems: Negative unless noted
Physical Exam
Vital Signs
Vital Signs
Temp Pulse Resp BP Pulse Ox
97.4 F 63 16 96/43 90
05/27/24 15:13 05/27/24 15:13 05/27/24 15:13 05/27/24 15:13 05/27/24 15:13
Lab Results
WBC 5.7 10^3/uL (4.8-10.8) 05/27/24 09:13
RBC 2.78 10^6/uL (4.20-5.40) L 05/27/24 09:13
Hgb 8.0 g/dL (12.0-16.0) L D 05/27/24 09:13
Hct 26.4 % (37.0-47.0) L 05/27/24 09:13
Plt Count 171 10^3/uL (130-400) 05/27/24 09:13
Sodium 139 mmol/L (135-145) 05/27/24 09:13
Potassium 4.5 mmol/L (3.5-5.1) 05/27/24 09:13
Chloride 104 mmol/L (98-107) 05/27/24 09:13
Carbon Dioxide 27 mmol/L (22-30) 05/27/24 09:13
BUN 22 mg/dl (7-17) H 05/27/24 09:13
Creatinine 2.6 mg/dL (0.6-1.0) H 05/27/24 09:13
eGFR 19.02 05/27/24 09:13
Glucose 65 mg/dl (70-99) L 05/27/24 09:13
Calcium 8.5 mg/dl (8.4-10.2) 05/27/24 09:13
Albumin 2.2 g/dl (3.5-5.0) L 05/26/24 16:18
Laboratory Tests
05/26/24
16:18
Hgb 6.5 L*
Physical Exam
Patient is awake alert oriented and in no distress. Mood and affect were pleasant, insight and judgment were good. Pupils are equal round and reactive to light, extraocular movements are intact, sclera were anicteric. Hearing was normal, ears and
nose are intact. Oropharynx was clear. Neck was supple with trachea midline and no thyromegaly. Heart was regular rate and rhythm without rubs. Lower extremities without edema. Lungs were clear to auscultation bilaterally and with normal
excursion. Abdomen was soft, nontender, with normal active bowel sounds, and no hepatosplenomegaly. Skin was without rash and with normal turgor.
Data Reviewed
-
Radiology: Image Personally Visualized and interpreted (Chest x-ray on 05/27/2024 by my reading shows right basilar opacity)
Medical Tests (Nuc Med, Echo etc): Image Personally Visualized and interpreted (EKG on 05/27/2024 by my read shows normal sinus rhythm nonspecific T wave abnormality)
Labs: Labs Reviewed by me
Old Records: Requested
Assessment/Plan
-
Assessment
ESRD
Acute anemia
GI bleed
Hyperlipidemia
Hypotension on midodrine
Recent sepsis/C. difficile
Recent urinary retention
Plan
GI evaluation in progress
Dialysis today per her usual schedule
Follow labs, is uncertain whether or not she is permanent dialysis.
Transfuse as necessary
[2024-05-27] MEDS: HEPARIN 4300 UNITS INTRACATH (16:25)
--- NOTE | 2024-05-27 16:42 | PTCARENOTE ---
Pt due to void by 1615, pt with no urine output. Pt bladder scanned for 0mLs. MD aware, pt received HD treatment today.
[2024-05-27] MEDS: VISBIOME 2 CAP PO (17:01)
[2024-05-27] MEDS: HEPARIN 5000 UNITS SC (22:10)
[2024-05-28] VITALS (12 sets, daily range): BP systolic 75–100; BP diastolic 32–48; BMI 33.8
--- NOTE | 2024-05-28 04:39 | DOWNTIME ---
There was a [employer] Taker Downtime on 05/28/2024 from 0200 to 05/28/2024 at 0325 . Downtime documentation of patient's care, including medication administrations, has been reconciled in the electronic record per guidelines. Refer to the
patient's paper chart under the miscellaneous tab to see printed paper medication records and downtime forms.
--- NOTE | 2024-05-28 04:55 | W.PN.UPDATE ---
Addendum entered and electronically signed by VANNESA Marroquin 05/28/24 06:42:
Pt Hgb 7.3, ordered 1 unit PRBC's.
Original Note:
Update Note
Progress Note Update
At 4 am VS check, Patient hypotensive, BP 78/38, HR 70's, repeat manual 86/32, MAP 50. Pt noted to still have dark stools. AM labs drawn early, NSS 250 ml fluid bolus given.
[2024-05-28] MEDS: NSS 250 IV (05:28)
[2024-05-28 06:25] LABS: % Basophils 0.6 % (0-2); % Eosinophils 2.1 % (0-6); % Immature Granulocytes 2.3 % (0-0.5); % Lymphocytes 39.9 % (20.5-51.1); % Monocytes 7.8 % (1.7-9.3); % Neutrophils 47.3 % (42.2-75.2); Absolute Eosinophils 0.1 10^3/uL (0-0.7); Absolute Immature Granulocytes 0.1 10^3/uL (0-0.05); Absolute Lymphocytes 1.9 10^3/uL (1.2-3.4); Absolute Monocytes 0.4 10^3/uL (0.1-0.6); Absolute Neutrophils 2.2 10^3/uL (1.4-6.5); Hematocrit 23.9 % (37.0-47.0); Hemoglobin 7.3 g/dL (12.0-16.0); Mean Corp Hgb Conc. 30.5 g/dL (33.0-37.0); Mean Corpuscular Hgb 29.2 pg (27.0-31.0); Mean Corpuscular Volume 95.6 fL (81.0-99.0); Mean Platelet Volume 9.7 fL (7.4-10.4); Nucleated Red Blood Cells % 0 %; Platelet Count 146 10^3/uL (130-400); Red Cell Dist. Width 19.4 % (11.5-14.5); White Blood Cell Count 4.7 10^3/uL (4.8-10.8)
[2024-05-28 06:45] LABS: Blood Urea Nitrogen 12 mg/dl (7-17); Calcium 8.1 mg/dl (8.4-10.2); Carbon Dioxide 29 mmol/L (22-30); Chloride 104 mmol/L (98-107); Estimated Creatinine Clearance 30 ml/min; Glucose 61 mg/dl (70-99); Potassium 4.1 mmol/L (3.5-5.1); Sodium 138 mmol/L (135-145); eGFR 31.66
[2024-05-28] MEDS: SYMBICORT 160/4.5 MCG INHALER 2 PUFF INH ×2 (07:33→20:07)
[2024-05-28] MEDS: VISBIOME 2 CAP PO (07:53)
[2024-05-28] MEDS: ProAmatine 10 MG PO ×2 (07:53→11:07)
[2024-05-28] MEDS: SINGULAIR 10 MG PO (07:54)
[2024-05-28] MEDS: VALTREX 500 MG PO (07:54)
[2024-05-28] MEDS: CRESTOR 5 MG PO (07:54)
[2024-05-28] MEDS: FIRVANQ 125 MG PO ×2 (07:54→19:14)
--- NOTE | 2024-05-28 07:54 | PN.CDI ---
CDI
- -
CDI:
Physician Documentation Request
Admit Date: 05/26/24 19:47
Dear Doctor Piper,
Please review the following and provide your response in the progress notes.
Clinical Indicators:
05/27/24 08:50 - Wound Note
#Wound Location and type/assessment:
#...Sacral crease stage 2 pressure injury along with MASD and
#...bilateral sacral buttocks stage 2 pressure injuries along with MASD.
Physician documentation of the type and location of wounds is required for compliant documentation. Based on the above clinical findings and your assessment, please provide the following in your progress note:
Location of the ulcer/wound, including laterality.
Type (etiology) of ulcer/wound.
- Venous stasis ulcer
- Pressure (decubitus) ulcer
- Other(please specify)
For a pressure ulcer, please also include the stage* of the ulcer:
- Stage 1 - Skin intact, non-blanchable redness
- Stage 2 - Partial thickness loss of dermis, includes intact or open blister
- Stage 3 - Full thickness tissue not including bone, tendon or muscle
- Stage 4 - Full thickness tissue loss, including exposed bone, tendon or muscle
- Unstageable - Full thickness loss in which the base of the ulcer is covered by slough (yellow, rich, ta, green or brown) and/or eschar (rich, brown or black) in the wound bed.
Use of terms such as suspected, likely, concern for, or probable (associated with a specific diagnosis that is being evaluated, monitored, or treated as if it exists) are acceptable and can be coded in the inpatient setting, when documented at the
time of discharge.
Thank you,
Patricia Yusuf RN BSN CCDS
CDI Specialist
please contact via tiger text
Please use your independent medical judgment in providing your response.
*Source: National Pressure Ulcer Advisory Panel (NPUAP)
[2024-05-28] MEDS: PACERONE 200 MG PO (07:55)
[2024-05-28] MEDS: HEPARIN 5000 UNITS SC ×2 (07:55→19:11)
[2024-05-28] MEDS: NEURONTIN 100 MG PO (07:55)
[2024-05-28] MEDS: FOLVITE 1 MG PO (07:55)
[2024-05-28] MEDS: PROTONIX IV 40 MG IV ×2 (07:56→19:12)
[2024-05-28] MEDS: DESENEX/MITRAZOL/ZEASORB 1 APPLIC TOPICAL ×3 (07:57→22:47)
[2024-05-28] MEDS: NSS (PRESERVATIVE FREE) 10 ML IV ×2 (07:57→19:12)
[2024-05-28] MEDS: ZINC OXIDE OINTMENT 1 APPLIC TOPICAL ×3 (07:57→22:47)
[2024-05-28] MEDS: DAKIN'S SOLUTION 0.125% 1/4 STRENGTH 1 ML TOPICAL (07:57)
--- NOTE | 2024-05-28 08:45 | W.PN.HOSP.TC ---
Today's Communication/Plan
-
1 unit PRBC
monitor Hb in 24 hours
holding Eliquis
if Hb stable in AM, resume Eliquis and consider DC back to SNF after HD
Assessment / Plan
Assessment / Plan
General: Well Developed, Well Nourished, No Apparent Distress, Comfortable and Conversant
HEENT: NormoCephalic, Moist mucous membranes, Atraumatic, PERRLA, [place] Conjunctivae, Nose Appears Normal and Ears Appear Normal
Respiratory: Clear and Non Labored Respirations
Cardiac: S1/S2 and Regular Rhythm; No Murmur, Rub or Gallop
Breast: Deferred by me
GI: Soft, Non Tender, Non Distended and Normal Bowel Sounds
Musculoskeletal: left thigh wound
Skin: Warm and Rash (rash under left breast wrapping around flank to left back; excoriation to perineal area)
Neuro: Awake, AO x 3 and Nonfocal/grossly intact
Psych: Calm and Intact Judgment/Insight
Anemia with heme + stool
likely Could be exacerbated by Eliquis
Hgb most recently 7.3. s/p 1 unit PRBC this hospitalization. 1 additional PRBC ordered today.
Heme positive stool
frequent loose stools with recent C. Diff history
GI following; d/w daughter and holding off EGD/Colonoscopy at this time
Eliquis remains held; if Hb more stable tomorrow, resume
continue Protonix BID
Norovirus negative, C. difficile toxin negative however antigen positive
Prolonged recent hospitalization at [facility]. Requested records. Recently moved to [facility]
Per daughter it appeared that patient had septic shock there secondary to left groin abscess. then later developed renal failure, Cdiff, also had pneumonia. CXR here with 'pneumonia' likely residual, no active symptoms. Not on Abx.
Chronic hypoxic respiratory insufficiency suspect related to chronic hospitalization, deconditioning
- wean O2 as able.
ESRD on HD
HD schedule --F
appears to be making urine as ED RN cathed her for 1100cc urine, cloudy
Nephrology following
continue midodrine
acute urinary retention
Asymptomatic bacteruria
- s/p Griffiths
- no indication for Abx per ID.
suspect par a-fib
continue amiodarone
Eliquis remains held; if Hb more stable tomorrow, resume
herpes zoster
rash under left breast that round to left back, some appear to be getting better
continue valacyclovir x 10 days; precautions
hyperlipidemia
continue rosuvastatin
Hx c-diff colitis
start PO Vanco for 2 additional days; continue probiotics
osteoarthritis
Chronic wounds
- L anterior upper thigh full thickness wound to subcutaneous layer, pink that can be visualized, undermines medially about 3cm, mod-large amount of murky serous drainage. Skin mild red around wound suspect r/t moisture.
- L medial upper thigh with a linear dermal ulcer suspect from rubbing and previous diaper use.
- Sacral crease stage 2 pressure injury along with MASD
- bilateral sacral buttocks stage 2 pressure injuries along with MASD.
- Perineal MASD.
- L medial posterior thigh linear red ecchymotic area.
- Small abrasions on R posterior ankle/calf. Heels slow to libby red/boggy.
- L anterior, lateral and posterior chest/back with scattered zoster lesions.
- follow wound care recs
Code status: DNR
DVT Prophylaxis: heparin
Anticipated Discharge: 24 - 48 hours
Subjective/Interval History
-
Date of Service: May 28, 2024
Hypotensive overnight - 1 unit PRBC ordered
patient reports ears feel muffled, but no pain/drainage, fevers
no other complaints other than feeling weak
Objective Data
-
Labs:
Laboratory Results
05/28/24 05/28/24 05/28/24
04:48 12:00 18:00
WBC 4.7 L
Hgb 7.3 L Pending Pending
Hct 23.9 L Pending Pending
Plt Count 146
Sodium 138
Potassium 4.1
Chloride 104
Carbon Dioxide 29
BUN 12
Creatinine 1.7 H
Glucose 61 L
Calcium 8.1 L
Vital Signs:
Vital Signs
Temp Pulse Resp BP Pulse Ox
97.5 F 73 18 92/45 96
05/28/24 07:20 05/28/24 07:53 05/28/24 07:39 05/28/24 07:53 05/28/24 07:39
I&O
05/27/24 05/28/24 05/29/24
06:59 06:59 06:59
Intake Total 350 / 350 400 / 400
Output Total 150 / 150 60 / 60
Balance 200 / 200 340 / 340
Data Reviewed
-
Total Time Spent with Patient (in minutes): 41
Labs: Labs Reviewed by me
--- NOTE | 2024-05-28 09:38 | W.PN.ID1 ---
Date of Service
Date of Service: May 28, 2024
Today's Communication
- can continue oral vanc BID x2 more days given recent exposure to zosyn, add probiotics
- continue enhanced contact precautions for C difficile while in house; the zoster rash is covered with a loose dressing
- continue valtrex for 7-10 days
- no objection to egd/colonoscopy from ID perspective
Assessment / Plan
Asymptomatic Bacteriuria
Treated Pneumonia with resolving infiltrates
Colonization with C difficile
Shingles - resolving
ESRD on HD
- can continue oral vanc BID x2 more days given recent exposure to zosyn, add probiotics
- continue enhanced contact precautions for C difficile while in house; the zoster rash is covered with a loose dressing
- continue valtrex for 7-10 days
- no objection to egd/colonoscopy from ID perspective
follow clinically
Chief Complaint
-: Other (asymptomatic bacteruria)
Subjective / Review of Systems
afebrile
bp overall stable
had HD yesterday
no events overnight
tells me she's felt cold today
cough remains nonproductive - no new symptoms
Vital Signs / Physical Exam
Vital Signs
Vital Signs
Temp Pulse Resp BP Pulse Ox
97.5 F 73 18 92/45 96
05/28/24 07:20 05/28/24 07:53 05/28/24 07:39 05/28/24 07:53 05/28/24 07:39
Physical Exam
Constitutional: No Acute Distress and Chronically Ill
Cardiovascular: Regular Rate and S1/S2; Negative Murmur or Rub
Pulmonary: Clear and Symmetric; Negative Wheezes or Rales
Gastrointestinal: Soft, Non Tender, Non Distended and Normal Bowel Sounds
Skin: Warm and Dry; Negative Jaundice
Objective Data
Lab Data
Lab Results
05/28/24 04:48
Estimated Creat Clear 30 ml/min 05/28/24 04:48
Total Bilirubin 0.5 mg/dl (0.2-1.3) 05/26/24 16:18
AST 22 U/L (14-36) 05/26/24 16:18
ALT 26 U/L (0-35) 05/26/24 16:18
Alkaline Phosphatase 99 U/L (38-126) 05/26/24 16:18
Most recent labs reviewed.
Micro Results:
05/26/24 17:24 Salmonella/Shigella Culture - Preliminary
Feces/Stool Culture in Progress
Campylobacter Culture - Final
No Campylobacter species isolated.
Shiga Toxin Test - Final
No E. coli Shiga Toxin 1 or 2 detected.
05/26/24 17:24 Urine Culture - Final
Urine Klebsiella pneumoniae
05/26/24 23:43 MRSA Screen - Final
Nose Staph aureus MRSA
05/26/24 17:24 C. difficile GDH Antigen & Toxins - Final
Feces/Stool C. difficile antigen positive, toxin negative.
Clostridium difficile present, but toxin not detected.
Patient may be a carrier, colonized with nontoxinogenic
strain or the level of toxin in sample is below detection
limits. This information should be used in conjunction with
the patient's clinical history.
- Final
Negative for Norovirus GI and GII.
--- NOTE | 2024-05-28 10:36 | PTCARENOTE ---
Vital signs at 15 minute check for blood administration with BP of 75/36. Manual BP obtained, 76/36. MD made aware, blood still infusing. No new orders at this time.
[2024-05-28] MEDS: DEBROX EAR DROPS 1 DROP OTIC ×2 (11:07→19:11)
--- NOTE | 2024-05-28 11:08 | W.PN.NEPH.PH ---
Today's Communication / Plan
-
Dialysis tomorrow
Assessment/Plan
-
Assessment
ESRD
Acute anemia
GI bleed
Hyperlipidemia
Hypotension on midodrine
Recent sepsis/C. difficile
Recent urinary retention
Plan
Daughter says that patient was CKD4 prior to her prolonged hospitalization but did not receive any nephrologic kidney care
She is likely ESRD
Check cortisol level
check echocardiogram
Increase midodrine
Dialysis tomorrow
-
-
Date of Service: May 28, 2024
CC / HPI / ROS
-
Chief Complaint:
ESRD
History of Present Illness:
Remains hypotensive, worse this morning
Hemoglobin dropped, receiving packed red blood cells
Tolerated dialysis yesterday
Review of Systems:
No chest pain or shortness of breath
Labs
-
Labs:
WBC 4.7 10^3/uL (4.8-10.8) L 05/28/24 04:48
RBC 2.50 10^6/uL (4.20-5.40) L 05/28/24 04:48
Plt Count 146 10^3/uL (130-400) 05/28/24 04:48
Sodium 138 mmol/L (135-145) 05/28/24 04:48
Potassium 4.1 mmol/L (3.5-5.1) 05/28/24 04:48
Chloride 104 mmol/L (98-107) 05/28/24 04:48
Carbon Dioxide 29 mmol/L (22-30) 05/28/24 04:48
BUN 12 mg/dl (7-17) 05/28/24 04:48
Creatinine 1.7 mg/dL (0.6-1.0) H 05/28/24 04:48
eGFR 31.66 05/28/24 04:48
Glucose 61 mg/dl (70-99) L 05/28/24 04:48
Calcium 8.1 mg/dl (8.4-10.2) L 05/28/24 04:48
Albumin 2.2 g/dl (3.5-5.0) L 05/26/24 16:18
Physical Exam
-
Vital Signs:
Vital Signs
Temp Pulse Resp BP Pulse Ox
98.2 F 73 16 76/36 98
05/28/24 10:30 05/28/24 11:07 05/28/24 10:30 05/28/24 11:07 05/28/24 10:30
Cardiovascular:: Regular rate and rhythm
Respiratory:: Bilateral: Coarse
Lung Excursion:: Normal
Abdomen:: Nontender and Soft
Bowel Sounds:: Normal
Extremity Edema:: +1: Bilateral:
[2024-05-28] MEDS: ProAmatine PO (12:39)
--- NOTE | 2024-05-28 12:39 | PTCARENOTE ---
Blood transfusion complete, VSS with BP of 96/48 manually to JODIE. Nephrology and MD made aware, per nephro we are to hold noon dose of midodrine due to 10mg 1100 dose having been given and start 20mg dose at 1999. Pt drowsy but arousable, o2 weaned
to 1L nc. No new orders at this time. See TAR for blood documentation.
[2024-05-28] MEDS: FLEXBUMIN 100 IV (14:45)
[2024-05-28 15:04] LABS: Hematocrit 28.6 % (37.0-47.0); Hemoglobin 8.8 g/dL (12.0-16.0)
--- NOTE | 2024-05-28 15:34 | WOUNDNOTE ---
WOC RN Note: t/c [facility], spoke with nurse Radha who confirmed patient has an air mattress at SNF.
--- NOTE | 2024-05-28 15:41 | CM ---
Patient chart reviewed.
Hgb 7.3, 8.8, repeat at 18
Patient rec blood
Patient to return to [facility] when medically stable.
CM will need to obtain insurance authorization prior
PT/OT evals for insurance
PLAN: Discharge when medically stable to [facility], will need insurance auth
[facility]
Report #: [phone]
Fax #: [phone]
[2024-05-28 17:46] LABS: Hematocrit 24.6 % (37.0-47.0); Hemoglobin 7.9 g/dL (12.0-16.0)
[2024-05-28] MEDS: ProAmatine 20 MG PO (19:13)
[2024-05-28 19:55] LABS: Hepatitis C Antibody Negative (Negative)
--- NOTE | 2024-05-28 20:12 | PTCARENOTE ---
MD made aware of Hgb dropping from 8.8 at 1454 to 7.9 at 1731. No outward bleeding and stools are brown in color, 1 unit of PRBC and 100mL of albumin given by this RN during this shift. Serious of BPs today are as follows: 92/45 at 0720, 75/36 at
1024, 96/48 at 1233 after receiving 1 unit of PRBC, 88/39 at 1539 after receiving 100mL of albumin, and 100/47 at 1727 upon reassessment of BP for this pt. This RN expressed that this pt did not seem fit for a med/surg floor given the lack of
response to midodrine/IVF bolus overnight the previous night/PRBC/albumin, placed order to transfer pt to IMU level of care. 2000 meds passed by this RN, bladder scan of 83mLs, pt transferred to IMU, incontinent episode changed, pt turned and
wounds assessed with oncoming RN, oriented to room, 1L nc reapplied. SHERRY Lara at bedside in IMU to help with transfer, bedside report provided.
[2024-05-29] VITALS (28 sets, daily range): BP systolic 85–152; BP diastolic 44–126; BMI 33.9
[2024-05-29 03:28] LABS: Hematocrit 25.6 % (37.0-47.0); Hemoglobin 8.1 g/dL (12.0-16.0); Mean Corp Hgb Conc. 31.6 g/dL (33.0-37.0); Mean Corpuscular Hgb 29.6 pg (27.0-31.0); Mean Corpuscular Volume 93.4 fL (81.0-99.0); Mean Platelet Volume 9.1 fL (7.4-10.4); Platelet Count 151 10^3/uL (130-400); Red Blood Cell Count 2.74 10^6/uL (4.20-5.40); Red Cell Dist. Width 18.9 % (11.5-14.5); White Blood Cell Count 4.9 10^3/uL (4.8-10.8)
[2024-05-29 03:43] LABS: Blood Urea Nitrogen 16 mg/dl (7-17); Calcium 8.5 mg/dl (8.4-10.2); Carbon Dioxide 24 mmol/L (22-30); Chloride 105 mmol/L (98-107); Estimated Creatinine Clearance 24 ml/min; Glucose 68 mg/dl (70-99); Sodium 138 mmol/L (135-145); eGFR 24.57
[2024-05-29 04:16] LABS: Cortisol, Random 18.8 ug/dl
[2024-05-29] MEDS: ProAmatine 20 MG PO ×3 (04:57→22:46)
[2024-05-29 05:23] LABS: Transferrin 129 mg/dL (200-360)
[2024-05-29] MEDS: SYMBICORT 160/4.5 MCG INHALER 2 PUFF INH ×2 (07:31→18:23)
[2024-05-29] MEDS: ProAmatine 5 MG PO (07:51)
[2024-05-29] MEDS: HEPARIN 500 UNITS IV (08:10)
[2024-05-29] MEDS: MANNITOL 25% 12.5 GRAMS IV ×2 (08:30→09:47)
--- NOTE | 2024-05-29 08:38 | W.PN.NEPH.HD ---
Assessment
-
Patient seen on HD
sbp 96
albumin, midodrine given to support bp
Progress Note - Hemodialysis
-
Date of Service: May 29, 2024
Duration: 30 minutes and 3 hours
Potassium Bath: 3
Calcium Bath: 2.5
Opti-Dialyzer: 160
Ultrafiltration: Other
Blood Flow: 400
Dialysate Flow: 600
Heparin: 500 times one
EPO: 10K
[2024-05-29] MEDS: FLEXBUMIN 25% FOR HEMODIALYSIS 12.5 GRAMS IV ×2 (08:40→09:46)
[2024-05-29] MEDS: RETACRIT 10000 UNITS IV (08:50)
--- NOTE | 2024-05-29 09:43 | W.PN.HOSP.TC ---
Today's Communication/Plan
-
HD today
for hypotension:
encourage protein/supplements
check blood cultures
CT abd/pel non-contrast
continue increased Midodrine
follow Hb
Assessment / Plan
Assessment / Plan
General: Well Developed, Well Nourished, No Apparent Distress, Comfortable and Conversant
HEENT: NormoCephalic, Moist mucous membranes, Atraumatic, PERRLA, [place] Conjunctivae, Nose Appears Normal and Ears Appear Normal
Respiratory: Clear and Non Labored Respirations
Cardiac: S1/S2 and Regular Rhythm; No Murmur, Rub or Gallop
Breast: Deferred by me
GI: Soft, Non Tender, Non Distended and Normal Bowel Sounds
Musculoskeletal: left thigh wound
Skin: Warm and Rash (rash under left breast wrapping around flank to left back; excoriation to perineal area)
Neuro: Awake, AO x 3 and Nonfocal/grossly intact
Psych: Calm and Intact Judgment/Insight
Assessment:
ongoing Hypotension, multifactorial.
- Asymptomatic
- Hypoalbuminemia most likely driving factor - encourage protein supplements
- possibility of GI bleed but see below (Hb improving, no overt evidence of bleeding)
- AM cortisol normal
- Echo with normal EF, no significant valve pathology
- check blood cultures and non-contrast CT abdomen after discussion with nephrology
Anemia with heme + stool; likely Could be exacerbated by Eliquis
Hgb most recently 8.1. s/p 2 unit PRBCs this hospitalization
Heme positive stool
frequent loose stools with recent C. Diff history
GI following; d/w daughter and holding off EGD/Colonoscopy at this time
Eliquis remains held
continue Protonix BID
Norovirus negative, C. difficile toxin negative however antigen positive
Prolonged recent hospitalization at [facility]. Requested records. Recently moved to [facility]
Per daughter it appeared that patient had septic shock there secondary to left groin abscess. then later developed renal failure, Cdiff, also had pneumonia. CXR here with 'pneumonia' likely residual, no active symptoms. Not on Abx.
Chronic hypoxic respiratory insufficiency suspect related to chronic hospitalization, deconditioning
- wean O2 as able.
ESRD on HD
HD schedule -
appears to be making urine as ED RN cathed her for 1100cc urine, cloudy
Nephrology following
continue midodrine - increased to 20mg TID on 05/28 by Nephrology
acute urinary retention
Asymptomatic bacteruria
- s/p Griffiths
- no indication for Abx per ID for urine culture growing Enterococcus
parox a-fib
continue amiodarone
Eliquis remains held as Hb stabilizes
herpes zoster
rash under left breast that round to left back, some appear to be getting better
continue valacyclovir x 10 days per ID; precautions
hyperlipidemia
continue rosuvastatin
Hx c-diff colitis
continue PO Vanco for 1 additional day; continue probiotics
osteoarthritis
Chronic wounds
- L anterior upper thigh full thickness wound to subcutaneous layer, pink that can be visualized, undermines medially about 3cm, mod-large amount of murky serous drainage. Skin mild red around wound suspect r/t moisture.
- L medial upper thigh with a linear dermal ulcer suspect from rubbing and previous diaper use.
- Sacral crease stage 2 pressure injury along with MASD
- bilateral sacral buttocks stage 2 pressure injuries along with MASD.
- Perineal MASD.
- L medial posterior thigh linear red ecchymotic area.
- Small abrasions on R posterior ankle/calf. Heels slow to libby red/boggy.
- L anterior, lateral and posterior chest/back with scattered zoster lesions.
- follow wound care recs
Code status: DNR
DVT Prophylaxis: heparin
Anticipated Discharge: 24 - 48 hours
Subjective/Interval History
-
Date of Service: May 29, 2024
Transferred to IMU as a precaution due to low BP. Did not respond to IV Albumin and increased doses of Midodrine
seen on HD
admits to poor appetite
denies SOB or CP
d/w RN, no evidence of dark/tarry stools or overt bleeding
Objective Data
-
Labs:
Laboratory Results
05/29/24
02:59
WBC 4.9
Hgb 8.1 L
Hct 25.6 L
Plt Count 151
Sodium 138
Potassium 4.0
Chloride 105
Carbon Dioxide 24
BUN 16
Creatinine 2.1 H
Glucose 68 L
Calcium 8.5
Vital Signs:
Vital Signs
Temp Pulse Resp BP Pulse Ox
98.0 F 77 16 98/51 97
05/29/24 02:53 05/29/24 07:51 05/29/24 07:36 05/29/24 07:51 05/29/24 07:36
I&O
05/28/24 05/29/24 05/30/24
06:59 06:59 06:59
Intake Total 400 / 400 925 / 925
Output Total 60 / 60 0 / 0
Balance 340 / 340 925 / 925
Data Reviewed
-
Total Time Spent with Patient (in minutes): 42
Labs: Labs Reviewed by me
--- NOTE | 2024-05-29 10:19 | W.PN.ID1 ---
Date of Service
Date of Service: May 29, 2024
Today's Communication
- will start cefazolin for now given persistent hypotension - follow clinically
- cefazolin has a unique side chain and would not expect a cross reaction
Assessment / Plan
Asymptomatic Bacteriuria
Treated Pneumonia with resolving infiltrates
Colonization with C difficile
Shingles below L breast - resolving
ESRD on HD
Reported allergy to cephalexin (unknown)
- will follow up blood cultures
- follow up CT a/p
- can continue oral vanc BID given known colonization with c diff
- continue enhanced contact precautions for C difficile while in house; the zoster rash is covered with a loose dressing
- continue valtrex for 7-10 days
- will start cefazolin for now given persistent hypotension - follow clinically
- cefazolin has a unique side chain and would not expect a cross reaction
follow clinically
Chief Complaint
-: Other (asymptomatic bacteruria)
Subjective / Review of Systems
afebrile
running more hypotensive - on midodrine
reports no hypotension
now on HD
no complaints
no cough, sputum production, abdominal pain, dysuria
not sure if shes producing urine
Vital Signs / Physical Exam
Vital Signs
Vital Signs
Temp Pulse Resp BP Pulse Ox
98.0 F 77 16 98/51 97
05/29/24 02:53 05/29/24 07:51 05/29/24 07:36 05/29/24 07:51 05/29/24 07:36
Physical Exam
Constitutional: No Acute Distress
Cardiovascular: Regular Rate and S1/S2; Negative Murmur or Rub
Pulmonary: Clear and Symmetric; Negative Wheezes or Rales
Gastrointestinal: Soft, Non Tender, Non Distended and Normal Bowel Sounds
Skin: Warm and Dry; Negative Rash or Jaundice
Objective Data
Lab Data
Lab Results
05/29/24 02:59
05/29/24 02:59
Estimated Creat Clear 24 ml/min 05/29/24 02:59
Total Bilirubin 0.5 mg/dl (0.2-1.3) 05/26/24 16:18
AST 22 U/L (14-36) 05/26/24 16:18
ALT 26 U/L (0-35) 05/26/24 16:18
Alkaline Phosphatase 99 U/L (38-126) 05/26/24 16:18
Most recent labs reviewed.
cortisol this am 18 appropriate
Micro Results:
05/26/24 17:24 Salmonella/Shigella Culture - Final
Feces/Stool No Salmonella, Shigella, Aeromonas or Plesiomonas species
isolated.
Campylobacter Culture - Final
No Campylobacter species isolated.
Shiga Toxin Test - Final
No E. coli Shiga Toxin 1 or 2 detected.
05/26/24 17:24 Urine Culture - Final
Urine Klebsiella pneumoniae
05/26/24 23:43 MRSA Screen - Final
Nose Staph aureus MRSA
05/26/24 17:24 C. difficile GDH Antigen & Toxins - Final
Feces/Stool C. difficile antigen positive, toxin negative.
Clostridium difficile present, but toxin not detected.
Patient may be a carrier, colonized with nontoxinogenic
strain or the level of toxin in sample is below detection
limits. This information should be used in conjunction with
the patient's clinical history.
- Final
Negative for Norovirus GI and GII.
[2024-05-29 11:15] LABS: Hepatitis B Surface Antigen Negative (Negative)
[2024-05-29] MEDS: HEPARIN 4300 UNITS INTRACATH (11:28)
[2024-05-29] MEDS: PROTONIX IV 40 MG IV ×2 (11:52→22:46)
[2024-05-29] MEDS: NSS (PRESERVATIVE FREE) 10 ML IV ×2 (11:52→22:46)
[2024-05-29] MEDS: PACERONE 200 MG PO (11:53)
[2024-05-29] MEDS: FOLVITE 1 MG PO (11:53)
[2024-05-29] MEDS: CRESTOR 5 MG PO (11:53)
[2024-05-29] MEDS: VISBIOME 2 CAP PO (11:53)
[2024-05-29] MEDS: DESENEX/MITRAZOL/ZEASORB 1 APPLIC TOPICAL ×3 (11:54→22:13)
[2024-05-29] MEDS: DAKIN'S SOLUTION 0.125% 1/4 STRENGTH 473 ML TOPICAL (11:54)
[2024-05-29] MEDS: SINGULAIR 10 MG PO (11:54)
[2024-05-29] MEDS: FIRVANQ 125 MG PO ×2 (11:55→22:46)
[2024-05-29] MEDS: HEPARIN 5000 UNITS SC ×2 (11:55→22:47)
[2024-05-29] MEDS: DEBROX EAR DROPS 1 DROP OTIC ×2 (11:55→22:12)
[2024-05-29] MEDS: NEURONTIN 100 MG PO (11:56)
[2024-05-29] MEDS: ZINC OXIDE OINTMENT 1 APPLIC TOPICAL ×3 (11:56→22:12)
[2024-05-29] MEDS: VALTREX 500 MG PO (14:15)
[2024-05-29] MEDS: ANCEF 5 IV (16:37)
[2024-05-29] MEDS: FLUSH (NSS) 2 FLUSH IV (16:38)
--- NOTE | 2024-05-29 17:33 | CM ---
Patient from [facility] with Hx ESRD on HD. O2 2L. Receiving IV Abx. Seen by wound care nurse. PT/OT Evals pending.
Patient will need insurance auth to return to SNF with rehab.
Plan follow up after seen by PT/OT.
Plan return to [facility]F when medically ready and insurance approves.
--- NOTE | 2024-05-29 18:00 | PTCARENOTE ---
Assumed care of pt this am, HD completed mid morning and pt tolerated without event via Rt chest all catheter. Pt has multiple lesions and MASD sores which become painful when she has loose stools. Frequent hygiene, turns and wound care provided
throughout the day. She reports feeling comfortable after hygiene and position changes along with educating pt that side lying needs to be higher and more supportive with Foam edge and air cushion. Pt NPO for breakfast and lunch and diet resumed for
dinner. Pt currently working on dinner meal. Daughter and son inlaw at bedside throughout the day, questions and answered and plan of care reviewed.
[2024-05-30] VITALS (22 sets, daily range): BP systolic 83–107; BP diastolic 43–68; BMI 34.4
--- NOTE | 2024-05-30 | PTCARENOTE ---
Received pt from day shift. pt ox3, drowsy and KOTZEBUE. NSR on monitor and 97% on 2L NC. wound care and hygiene completed. Pt resting in bed with call cruz in reach.
[2024-05-30] MEDS: ProAmatine 20 MG PO ×3 (04:18→21:03)
[2024-05-30 04:59] LABS: Hematocrit 25.2 % (37.0-47.0); Hemoglobin 7.8 g/dL (12.0-16.0); Mean Corpuscular Hgb 29.3 pg (27.0-31.0); Mean Corpuscular Volume 94.7 fL (81.0-99.0); Mean Platelet Volume 9.2 fL (7.4-10.4); Platelet Count 149 10^3/uL (130-400); Red Blood Cell Count 2.66 10^6/uL (4.20-5.40); Red Cell Dist. Width 19.7 % (11.5-14.5); White Blood Cell Count 4.6 10^3/uL (4.8-10.8)
[2024-05-30 05:21] LABS: Blood Urea Nitrogen 7 mg/dl (7-17); Calcium 8.2 mg/dl (8.4-10.2); Carbon Dioxide 28 mmol/L (22-30); Chloride 104 mmol/L (98-107); Estimated Creatinine Clearance 34 ml/min; Glucose 80 mg/dl (70-99); Potassium 3.7 mmol/L (3.5-5.1); Sodium 138 mmol/L (135-145)
[2024-05-30] MEDS: SYMBICORT 160/4.5 MCG INHALER 2 PUFF INH ×2 (07:44→20:33)
[2024-05-30] MEDS: NEURONTIN 100 MG PO (09:26)
[2024-05-30] MEDS: VALTREX 500 MG PO (09:26)
[2024-05-30] MEDS: SINGULAIR 10 MG PO (09:26)
[2024-05-30] MEDS: VISBIOME 2 CAP PO (09:26)
[2024-05-30] MEDS: PROTONIX IV 40 MG IV ×2 (09:27→21:02)
[2024-05-30] MEDS: FOLVITE 1 MG PO (09:27)
[2024-05-30] MEDS: NSS (PRESERVATIVE FREE) 10 ML IV ×2 (09:27→21:02)
[2024-05-30] MEDS: CRESTOR 5 MG PO (09:27)
[2024-05-30] MEDS: PACERONE 200 MG PO (09:27)
[2024-05-30] MEDS: HEPARIN 5000 UNITS SC ×2 (09:27→21:02)
[2024-05-30] MEDS: DESENEX/MITRAZOL/ZEASORB 1 APPLIC TOPICAL ×3 (09:28→20:39)
[2024-05-30] MEDS: DEBROX EAR DROPS 1 DROP OTIC ×2 (09:28→21:03)
[2024-05-30] MEDS: FIRVANQ 125 MG PO ×2 (09:28→21:03)
[2024-05-30] MEDS: DAKIN'S SOLUTION 0.125% 1/4 STRENGTH 1 ML TOPICAL (09:28)
[2024-05-30] MEDS: ZINC OXIDE OINTMENT 1 APPLIC TOPICAL ×3 (09:29→20:39)
--- NOTE | 2024-05-30 10:07 | W.PN.ID1 ---
Date of Service
Date of Service: May 30, 2024
Today's Communication
Continue cefazolin (d2).
Repeat blood cx's in am.
Assessment / Plan
GNR bacteremia x 2 sets
Asymptomatic Klebsiella Bacteriuria
Hypotension
Treated Pneumonia with resolving infiltrates
Colonization with C difficile
Shingles below L breast - resolving
ESRD on HD via HD catheter
Reported allergy to cephalexin (unknown)
-CT a/p: no abscess/infection
- GNR bacteremia possibly HD catheter source
-Repeat blood cx's x 2 in am.
- Contnue cefazolin for now (d2)
- can continue oral vanc BID given known colonization with c diff
- continue enhanced contact precautions for C difficile while in house; the zoster rash is covered with a loose dressing
- continue valtrex for 7-10 days
-follow clinically
Chief Complaint
-: Bacteremia and Other (asymptomatic bacteruria)
Subjective / Review of Systems
No pain. No complaints.
No diarrhea
Vital Signs / Physical Exam
Vital Signs
Vital Signs
Temp Pulse Resp BP Pulse Ox
97.9 F 79 24 103/55 96
05/30/24 07:55 05/30/24 09:00 05/30/24 09:00 05/30/24 09:00 05/30/24 09:00
Physical Exam
Constitutional: No Acute Distress and Comfortable
Eyes: No Conjunctival Hemorrhage and Sclera Anicteric
Cardiovascular: Regular Rate and S1/S2
Pulmonary: Clear
Gastrointestinal: Soft, Non Tender, Non Distended and Normal Bowel Sounds
Genito-Urinary: Negative CVA Tenderness
Extremities: Negative Edema
Wound: Other (left groin wound clean, healty granulating tissue; Under left breast lesions are crusting)
Neurological: AO x 3
Lines: HD Cath (RCW no erythema)
Objective Data
Lab Data
Lab Results
05/30/24 04:34
05/30/24 04:34
Estimated Creat Clear 34 ml/min 05/30/24 04:34
Total Bilirubin 0.5 mg/dl (0.2-1.3) 05/26/24 16:18
AST 22 U/L (14-36) 05/26/24 16:18
ALT 26 U/L (0-35) 05/26/24 16:18
Alkaline Phosphatase 99 U/L (38-126) 05/26/24 16:18
Most recent labs reviewed.
Micro Results:
05/29/24 12:43 Blood Culture - Preliminary
Blood/Venous Positive culture in progress
Gram Stain - Preliminary
05/29/24 12:11 Blood Culture - Preliminary
Blood/Venous Positive culture in progress
Gram Stain - Preliminary
05/26/24 17:24 Salmonella/Shigella Culture - Final
Feces/Stool No Salmonella, Shigella, Aeromonas or Plesiomonas species
isolated.
Campylobacter Culture - Final
No Campylobacter species isolated.
Shiga Toxin Test - Final
No E. coli Shiga Toxin 1 or 2 detected.
05/26/24 17:24 Urine Culture - Final
Urine Klebsiella pneumoniae
05/26/24 23:43 MRSA Screen - Final
Nose Staph aureus MRSA
05/26/24 17:24 C. difficile GDH Antigen & Toxins - Final
Feces/Stool C. difficile antigen positive, toxin negative.
Clostridium difficile present, but toxin not detected.
Patient may be a carrier, colonized with nontoxinogenic
strain or the level of toxin in sample is below detection
limits. This information should be used in conjunction with
the patient's clinical history.
- Final
Negative for Norovirus GI and GII.
05/29/24 CT a/P:
1. No CT evidence for acute retroperitoneal or intraperitoneal hemorrhage.
2. Moderate to severe bilateral renal cortical volume loss and severe scarring in the lateral cortex of the left kidney consistent with END-STAGE RENAL DISEASE.
3. Severe calcific atherosclerotic plaque in the abdominal aorta and common iliac arteries.
4. Mild splenomegaly.
5. Severe diverticulosis in the sigmoid colon.
6. Small bilateral pleural effusions with adjacent bilateral lower lobe airspace consolidation (possibly right lower lobe pneumonia).
7. Severe calcific atherosclerotic plaque in the coronary arteries and thoracic aorta.
8. Mild cardiomegaly.
9. 6.8 mm pulmonary nodule in the lateral segment of the right middle lobe (possibly infectious or inflammatory in etiology). A follow-up chest CT examination in 6-12 months is recommended
10. Moderate anasarca.
11. Moderate to severe paraspinal and pelvic muscle atrophy.
12. Severe discogenic degenerative disease at L4/L5 and L5/S1.
--- NOTE | 2024-05-30 10:44 | W.PN.NEPH.PH ---
Today's Communication / Plan
-
Next dialysis Saturday
May need to discontinue dialysis catheter at ID recommendation
Assessment/Plan
-
Assessment
ESRD
Gram-negative bacilli bacteremia
Acute anemia
GI bleed
Hyperlipidemia
Hypotension on midodrine
Recent sepsis/C. difficile
Recent urinary retention
Plan
Daughter says that patient was CKD4 prior to her prolonged hospitalization but did not receive any nephrologic kidney care
Patient remains hypotensive 20mg q8hrs
She is likely ESRD
Check cortisol level : 19
check echocardiogram: No LV dysfunction or profound valvular abnormalities
CT of abdomen reviewed no evidence of retroperitoneal bleed re: ongoing anemia
Gram-negative bacilli bacteremia could be contributing to ongoing hypotension, now on Fortaz
Patient with significant hypoalbuminemia of 2.2 affecting effective circulating volume and with subsequent hemodynamic instability
Dialysis Saturday
-
-
Date of Service: May 30, 2024
CC / HPI / ROS
-
Chief Complaint:
ESRD
History of Present Illness:
Remains hypotensive,
Gram-negative bacilli bacteremia now on Ancef
Hemoglobin dropped, receiving packed red blood cells
Tolerated dialysis yesterday
Review of Systems:
No chest pain or shortness of breath
No fevers
Labs
-
Labs:
WBC 4.6 10^3/uL (4.8-10.8) L 05/30/24 04:34
RBC 2.66 10^6/uL (4.20-5.40) L 05/30/24 04:34
Hgb 7.8 g/dL (12.0-16.0) L 05/30/24 04:34
Hct 25.2 % (37.0-47.0) L 05/30/24 04:34
Plt Count 149 10^3/uL (130-400) 05/30/24 04:34
Sodium 138 mmol/L (135-145) 05/30/24 04:34
Potassium 3.7 mmol/L (3.5-5.1) 05/30/24 04:34
Chloride 104 mmol/L (98-107) 05/30/24 04:34
Carbon Dioxide 28 mmol/L (22-30) 05/30/24 04:34
BUN 7 mg/dl (7-17) 05/30/24 04:34
Creatinine 1.5 mg/dL (0.6-1.0) H 05/30/24 04:34
eGFR 36.80 05/30/24 04:34
Glucose 80 mg/dl (70-99) 05/30/24 04:34
Calcium 8.2 mg/dl (8.4-10.2) L 05/30/24 04:34
Albumin 2.2 g/dl (3.5-5.0) L 05/26/24 16:18
Physical Exam
-
Vital Signs:
Vital Signs
Temp Pulse Resp BP Pulse Ox
97.9 F 79 24 103/55 96
05/30/24 07:55 05/30/24 09:00 05/30/24 09:00 05/30/24 09:00 05/30/24 09:00
Cardiovascular:: Regular rate and rhythm
Respiratory:: Bilateral: Coarse
Lung Excursion:: Normal
Abdomen:: Nontender and Soft
Bowel Sounds:: Normal
Extremity Edema:: None: Bilateral:
Griffiths Catheter: No
--- NOTE | 2024-05-30 13:49 | W.PN.HOSP.TC ---
Today's Communication/Plan
-
Assessment / Plan
Assessment / Plan
General: Well Developed, Well Nourished, No Apparent Distress, Comfortable and Conversant
HEENT: NormoCephalic, Moist mucous membranes, Atraumatic
Respiratory: Clear and Non Labored Respirations
Cardiac: S1/S2 and Regular Rhythm; No Murmur, Rub or Gallop
GI: Soft, Non Tender, Non Distended and Normal Bowel Sounds
Musculoskeletal: left thigh wound
Skin: Warm and Rash (rash under left breast wrapping around flank to left back; excoriation to perineal area)
Neuro: Awake, AO x 3 and Nonfocal/grossly intact
Psych: Calm and Intact Judgment/Insight
Assessment:
Enterobacter bacteremia/GNR
-Continue ivatb
-Repeat bcx
-unsure of sourc
-ID following
ongoing Hypotension, multifactorial.
- Asymptomatic
- Hypoalbuminemia, start Ensure TID
- Without evidnece of active GI bleed, Hgb stable
- AM cortisol normal
- Echo with normal EF, no significant valve pathology
Anemia with heme + stool; likely Could be exacerbated by Eliquis
Hgb most recently 8.1. s/p 2 unit PRBCs this hospitalization
Heme positive stool
frequent loose stools with recent C. Diff history
GI following; d/w daughter and holding off EGD/Colonoscopy at this time
Eliquis remains held
continue Protonix BID
Norovirus negative, C. difficile toxin negative however antigen positive
Prolonged recent hospitalization at [facility]. Requested records. Recently moved to [facility]
Per daughter it appeared that patient had septic shock there secondary to left groin abscess. then later developed renal failure, Cdiff, also had pneumonia. CXR here with 'pneumonia' likely residual, no active symptoms. Not on Abx.
Chronic hypoxic respiratory insufficiency suspect related to chronic hospitalization, deconditioning
- wean O2 as able.
ESRD on HD
HD schedule --
appears to be making urine as ED RN cathed her for 1100cc urine, cloudy
Nephrology following
continue midodrine - increased to 20mg TID on 05/28 by Nephrology
acute urinary retention
Asymptomatic bacteruria
- s/p Griffiths
- no indication for Abx per ID for urine culture growing Enterococcus
parox a-fib
continue amiodarone
Eliquis remains held as Hb stabilizes
herpes zoster
rash under left breast that round to left back, some appear to be getting better
continue valacyclovir x 10 days per ID; precautions
hyperlipidemia
continue rosuvastatin
Hx c-diff colitis
continue PO Vanco for 1 additional day; continue probiotics
osteoarthritis
Chronic wounds
- L anterior upper thigh full thickness wound to subcutaneous layer, pink that can be visualized, undermines medially about 3cm, mod-large amount of murky serous drainage. Skin mild red around wound suspect r/t moisture.
- L medial upper thigh with a linear dermal ulcer suspect from rubbing and previous diaper use.
- Sacral crease stage 2 pressure injury along with MASD
- bilateral sacral buttocks stage 2 pressure injuries along with MASD.
- Perineal MASD.
- L medial posterior thigh linear red ecchymotic area.
- Small abrasions on R posterior ankle/calf. Heels slow to libby red/boggy.
- L anterior, lateral and posterior chest/back with scattered zoster lesions.
- follow wound care recs
Code status: DNR
DVT Prophylaxis: heparin
Anticipated Discharge: > 48 hours
Subjective/Interval History
-
Date of Service: May 30, 2024
seen and examined
no new complaints
no acute overnight events
daughter and at bedside. update provided
Objective Data
-
Labs:
Laboratory Results
05/30/24
04:34
WBC 4.6 L
Hgb 7.8 L
Hct 25.2 L
Plt Count 149
Sodium 138
Potassium 3.7
Chloride 104
Carbon Dioxide 28
BUN 7
Creatinine 1.5 H
Glucose 80
Calcium 8.2 L
Vital Signs:
Vital Signs
Temp Pulse Resp BP Pulse Ox
97.9 F 80 27 102/48 96
05/30/24 11:45 05/30/24 13:00 05/30/24 13:00 05/30/24 13:00 05/30/24 13:00
I&O
05/29/24 05/30/24 05/31/24
06:59 06:59 06:59
Intake Total 925 / 925 420 / 420
Output Total 0 / 0
Balance 925 / 925 420 / 420
[2024-05-30] MEDS: ANCEF 5 IV (17:13)
[2024-05-30] MEDS: DAKIN'S SOLUTION 0.125% 1/4 STRENGTH 473 ML TOPICAL (20:40)
[2024-05-31] VITALS (36 sets, daily range): BP systolic 84–115; BP diastolic 44–87; BMI 31.9
[2024-05-31] MEDS: NSS 500 IV (00:03)
[2024-05-31] MEDS: ProAmatine 5 MG PO (02:09)
[2024-05-31] MEDS: ProAmatine 20 MG PO ×3 (05:00→21:18)
--- NOTE | 2024-05-31 07:00 | PTCARENOTE ---
Pt increasingly hypotensive. Notified ARTHUR Ram. 500 NSS bolus Rx'd and admin. remained hypotensive, notified MEDICAL LABORATORY ASSISTANT, and received Rx for midodrine PO (see MAR).
[2024-05-31] MEDS: SYMBICORT 160/4.5 MCG INHALER 2 PUFF INH ×2 (08:09→20:01)
--- NOTE | 2024-05-31 08:25 | W.PN.NEPH.PH ---
Addendum entered and electronically signed by Irwin Ngo DO 05/31/24 08:46:
Discussion with infectious disease re: ESBL in blood
Will have catheter removed tomorrow after dialysis
IR consulted
Original Note:
Today's Communication / Plan
-
Maintain high-dose midodrine
Now on Fortaz for gram-negative bacteremia
Dialysis tomorrow, UF as tolerated
Assessment/Plan
-
Assessment
ESRD
Gram-negative bacilli bacteremia
Acute anemia
GI bleed
Hyperlipidemia
Hypotension on midodrine
Recent sepsis/C. difficile
Recent urinary retention
Plan
Daughter says that patient was CKD4 prior to her prolonged hospitalization but did not receive any nephrologic kidney care
Patient remains hypotensive 20mg q8hrs
Check cortisol level : 19
checked echocardiogram: No LV dysfunction or profound valvular abnormalities
CT of abdomen reviewed no evidence of retroperitoneal bleed re: ongoing anemia
Gram-negative bacilli bacteremia could be contributing to ongoing hypotension, now on Fortaz
-Remains on oral vancomycin for colonizing
Patient with significant hypoalbuminemia of 2.2 affecting effective circulating volume and with subsequent hemodynamic instability
Dialysis Saturday,order provided
UF on dialysis complicated by chronic hemodynamic instability
-
-
Date of Service: May 31, 2024
CC / HPI / ROS
-
Chief Complaint:
ESRD
History of Present Illness:
Remains hypotensive on midodrine 20mg q8
Gram-negative bacilli bacteremia now on Ancef
Hemoglobin dropped,despite receiving packed red blood cells
[facility] MWF
Review of Systems:
No chest pain or shortness of breath
No fevers
Labs
-
Labs:
WBC 4.6 10^3/uL (4.8-10.8) L 05/30/24 04:34
RBC 2.66 10^6/uL (4.20-5.40) L 05/30/24 04:34
Hgb 7.8 g/dL (12.0-16.0) L 05/30/24 04:34
Hct 25.2 % (37.0-47.0) L 05/30/24 04:34
Plt Count 149 10^3/uL (130-400) 05/30/24 04:34
Sodium 138 mmol/L (135-145) 05/30/24 04:34
Potassium 3.7 mmol/L (3.5-5.1) 05/30/24 04:34
Chloride 104 mmol/L (98-107) 05/30/24 04:34
Carbon Dioxide 28 mmol/L (22-30) 05/30/24 04:34
BUN 7 mg/dl (7-17) 05/30/24 04:34
Creatinine 1.5 mg/dL (0.6-1.0) H 05/30/24 04:34
eGFR 36.80 05/30/24 04:34
Glucose 80 mg/dl (70-99) 05/30/24 04:34
Calcium 8.2 mg/dl (8.4-10.2) L 05/30/24 04:34
Albumin 2.2 g/dl (3.5-5.0) L 05/26/24 16:18
Physical Exam
-
Vital Signs:
Vital Signs
Temp Pulse Resp BP Pulse Ox
98.4 F 76 16 115/61 95
05/31/24 03:00 05/31/24 08:10 05/31/24 08:10 05/31/24 07:30 05/31/24 08:22
Cardiovascular:: Regular rate and rhythm
Respiratory:: Bilateral: Coarse
Lung Excursion:: Normal
Abdomen:: Nontender and Soft
Bowel Sounds:: Normal
Extremity Edema:: +1: Bilateral:
Griffiths Catheter: No
--- NOTE | 2024-05-31 09:01 | W.PN.ID1 ---
Date of Service
Date of Service: May 31, 2024
Today's Communication
Start meropenem 1g IV q24.
Organism MDRO, recommend dc HD catheter, cx tip.
Assessment / Plan
ESBL-Enterobacter bacteremia x 2 sets
Possible HD cath source
Asymptomatic Klebsiella Bacteriuria
Hypotension
Treated Pneumonia with resolving infiltrates
Colonization with C difficile
Shingles below L breast - resolving
ESRD on HD via HD catheter
Reported allergy to cephalexin (unknown)
-CT a/p: no abscess/infection
-Repeat blood cx's x 2 pending (before meropenem)
- Discontinue cefazolin(d3)
- Start meropenem 1g IV q24.
- Organism MDRO, recommend dc HD catheter, cx tip.
Discussed with Nephrology - will dc HD catheter after dialysis tomorrow.
- can continue oral vanc BID given known colonization with c diff
- continue enhanced contact precautions for C difficile while in house; the zoster rash is covered with a loose dressing
- continue valtrex for 7-10 days
-follow clinically
Chief Complaint
-: Bacteremia and Other (asymptomatic bacteruria)
Subjective / Review of Systems
Feels OK
Vital Signs / Physical Exam
Vital Signs
Vital Signs
Temp Pulse Resp BP Pulse Ox
98.4 F 76 16 115/61 95
05/31/24 03:00 05/31/24 08:10 05/31/24 08:10 05/31/24 07:30 05/31/24 08:22
Physical Exam
Constitutional: Comfortable
Eyes: No Conjunctival Hemorrhage and Sclera Anicteric
Cardiovascular: Regular Rate and S1/S2
Pulmonary: Clear
Gastrointestinal: Soft, Non Tender, Non Distended and Normal Bowel Sounds
Genito-Urinary: Negative CVA Tenderness
Extremities: Negative Edema
Wound: Other (left groin wound clean, healty granulating tissue; Under left breast lesions are crusting)
Neurological: AO x 3
Lines: HD Cath (RCW no erythema)
Objective Data
Lab Data
Lab Results
05/30/24 04:34
05/30/24 04:34
Estimated Creat Clear 34 ml/min 05/30/24 04:34
Total Bilirubin 0.5 mg/dl (0.2-1.3) 05/26/24 16:18
AST 22 U/L (14-36) 05/26/24 16:18
ALT 26 U/L (0-35) 05/26/24 16:18
Alkaline Phosphatase 99 U/L (38-126) 05/26/24 16:18
Most recent labs reviewed.
Micro Results:
05/31/24 06:08 Blood Culture - Pending
Blood/Venous
05/31/24 06:08 Blood Culture - Pending
Blood/Venous
05/29/24 12:11 Blood Culture - Preliminary
Blood/Venous Enterobacter species
Gram Stain - Preliminary
05/29/24 12:43 Blood Culture - Preliminary
Blood/Venous Positive culture in progress
Gram Stain - Preliminary
05/26/24 17:24 Salmonella/Shigella Culture - Final
Feces/Stool No Salmonella, Shigella, Aeromonas or Plesiomonas species
isolated.
Campylobacter Culture - Final
No Campylobacter species isolated.
Shiga Toxin Test - Final
No E. coli Shiga Toxin 1 or 2 detected.
05/26/24 17:24 Urine Culture - Final
Urine Klebsiella pneumoniae
05/26/24 23:43 MRSA Screen - Final
Nose Staph aureus MRSA
05/26/24 17:24 C. difficile GDH Antigen & Toxins - Final
Feces/Stool C. difficile antigen positive, toxin negative.
Clostridium difficile present, but toxin not detected.
Patient may be a carrier, colonized with nontoxinogenic
strain or the level of toxin in sample is below detection
limits. This information should be used in conjunction with
the patient's clinical history.
- Final
Negative for Norovirus GI and GII.
05/29/24 CT a/P:
1. No CT evidence for acute retroperitoneal or intraperitoneal hemorrhage.
2. Moderate to severe bilateral renal cortical volume loss and severe scarring in the lateral cortex of the left kidney consistent with END-STAGE RENAL DISEASE.
3. Severe calcific atherosclerotic plaque in the abdominal aorta and common iliac arteries.
4. Mild splenomegaly.
5. Severe diverticulosis in the sigmoid colon.
6. Small bilateral pleural effusions with adjacent bilateral lower lobe airspace consolidation (possibly right lower lobe pneumonia).
7. Severe calcific atherosclerotic plaque in the coronary arteries and thoracic aorta.
8. Mild cardiomegaly.
9. 6.8 mm pulmonary nodule in the lateral segment of the right middle lobe (possibly infectious or inflammatory in etiology). A follow-up chest CT examination in 6-12 months is recommended
10. Moderate anasarca.
11. Moderate to severe paraspinal and pelvic muscle atrophy.
12. Severe discogenic degenerative disease at L4/L5 and L5/S1.
Care Review
Plan reviewed with: Physician (Dr. Ngo)
[2024-05-31] MEDS: VALTREX 500 MG PO (09:18)
[2024-05-31] MEDS: PACERONE 200 MG PO (09:18)
[2024-05-31] MEDS: VISBIOME 2 CAP PO (09:18)
[2024-05-31] MEDS: FOLVITE 1 MG PO (09:18)
[2024-05-31] MEDS: NEURONTIN 100 MG PO (09:19)
[2024-05-31] MEDS: NSS (PRESERVATIVE FREE) 10 ML IV ×2 (09:19→21:18)
[2024-05-31] MEDS: HEPARIN 5000 UNITS SC ×2 (09:19→21:18)
[2024-05-31] MEDS: PROTONIX IV 40 MG IV ×2 (09:19→21:17)
[2024-05-31] MEDS: SINGULAIR 10 MG PO (09:19)
[2024-05-31] MEDS: DEBROX EAR DROPS 1 DROP OTIC ×2 (09:20→21:18)
[2024-05-31] MEDS: DESENEX/MITRAZOL/ZEASORB 1 APPLIC TOPICAL ×3 (09:20→21:19)
[2024-05-31] MEDS: CRESTOR 5 MG PO (09:20)
[2024-05-31] MEDS: FIRVANQ 125 MG PO ×2 (09:20→21:18)
[2024-05-31] MEDS: ZINC OXIDE OINTMENT 1 APPLIC TOPICAL ×3 (09:21→21:19)
[2024-05-31] MEDS: MERREM 1000 MG IV (09:22)
[2024-05-31] MEDS: STERILE WATER FOR INJECTION 20 ML IV (09:22)
--- NOTE | 2024-05-31 13:55 | W.PN.HOSP.TC ---
Today's Communication/Plan
-
Assessment / Plan
Assessment / Plan
General: Well Developed, Well Nourished, No Apparent Distress, Comfortable and Conversant
HEENT: NormoCephalic, Moist mucous membranes, Atraumatic
Respiratory: Clear and Non Labored Respirations
RACWPC
Cardiac: S1/S2 and Regular Rhythm; No Murmur, Rub or Gallop
GI: Soft, Non Tender, Non Distended and Normal Bowel Sounds
Musculoskeletal: left thigh wound
Skin: Warm a
Neuro: Awake, AO x 3 and Nonfocal/grossly intact
Psych: Calm and Intact Judgment/Insight
Assessment:
Enterobacter bacteremia/GNR
-Continue ivatb, start alexandre per ID
-Repeat bcx
-unsure of source, will plan to remove RACWPC, tip culture
-ID following
ongoing Hypotension, multifactorial.
- Asymptomatic
- Hypoalbuminemia, start Ensure TID
- Without evidnece of active GI bleed, Hgb stable
- AM cortisol normal
- Echo with normal EF, no significant valve pathology
Anemia with heme + stool; likely Could be exacerbated by Eliquis
Hgb most recently 8.1. s/p 2 unit PRBCs this hospitalization
Heme positive stool
frequent loose stools with recent C. Diff history
GI following; d/w daughter and holding off EGD/Colonoscopy at this time
Eliquis remains held
continue Protonix BID
Norovirus negative, C. difficile toxin negative however antigen positive
Prolonged recent hospitalization at [facility]. Requested records. Recently moved to [facility]
Per daughter it appeared that patient had septic shock there secondary to left groin abscess. then later developed renal failure, Cdiff, also had pneumonia. CXR here with 'pneumonia' likely residual, no active symptoms. Not on Abx.
Chronic hypoxic respiratory insufficiency suspect related to chronic hospitalization, deconditioning
- wean O2 as able.
ESRD on HD
HD schedule --
appears to be making urine as ED RN cathed her for 1100cc urine, cloudy
Nephrology following
continue midodrine - increased to 20mg TID on 05/28 by Nephrology
acute urinary retention
Asymptomatic bacteruria
- s/p Griffiths
- no indication for Abx per ID for urine culture growing Enterococcus
parox a-fib
continue amiodarone
Eliquis remains held as Hb stabilizes
herpes zoster
rash under left breast that round to left back, some appear to be getting better
continue valacyclovir x 10 days per ID; precautions
hyperlipidemia
continue rosuvastatin
Hx c-diff colitis
continue PO Vanco; continue probiotics
osteoarthritis
Chronic wounds
- L anterior upper thigh full thickness wound to subcutaneous layer, pink that can be visualized, undermines medially about 3cm, mod-large amount of murky serous drainage. Skin mild red around wound suspect r/t moisture.
- L medial upper thigh with a linear dermal ulcer suspect from rubbing and previous diaper use.
- Sacral crease stage 2 pressure injury along with MASD
- bilateral sacral buttocks stage 2 pressure injuries along with MASD.
- Perineal MASD.
- L medial posterior thigh linear red ecchymotic area.
- Small abrasions on R posterior ankle/calf. Heels slow to libby red/boggy.
- L anterior, lateral and posterior chest/back with scattered zoster lesions.
- follow wound care recs
Code status: DNR
DVT Prophylaxis: heparin
Anticipated Discharge: 24 - 48 hours
Subjective/Interval History
-
Date of Service: May 31, 2024
seen and examined
daughter at bedside
discussed blood infection and hd catheter that will need to be removed by IR
no new compalitns
Objective Data
-
Vital Signs:
Vital Signs
Temp Pulse Resp BP Pulse Ox
98.0 F 87 27 95/50 97
05/31/24 08:25 05/31/24 12:53 05/31/24 12:30 05/31/24 12:53 05/31/24 12:30
I&O
05/30/24 05/31/24 06/01/24
06:59 06:59 06:59
Intake Total 420 / 420 1000 / 1000
Balance 420 / 420 1000 / 1000
--- NOTE | 2024-05-31 19:26 | PTCARENOTE ---
Rec'd care of patient at 0700. Patient alert and oriented. [place]. NSR on tele monitor. BP soft. +1 edema in b/l LE. Trace anasarca. Pulses palpable. Pulse ox 95-97% on 2L nc. Lung sounds shallow/diminished. Fine crackles in b/l base. +BS. Appetite
poor. Incontinent of 2 loose BMs. No urine output. HD scheduled for tomorrow with removal/culture of HD cath post treatment. Patient washed and wound care as ordered. Repositioned for comfort throughout shift.
--- NOTE | 2024-05-31 21:00 | PTCARENOTE ---
Received pt from day shift. Pt ox3 and drowsy. NSR on monitor. 95% on 2L. Hygeine and wound care complete (see worklist). Pt resting in bed with call cruz in reach.
[2024-05-31] MEDS: TYLENOL 500 MG PO (21:35)
[2024-06-01] VITALS (25 sets, daily range): BP systolic 80–111; BP diastolic 39–60; BMI 33.7
[2024-06-01] MEDS: ProAmatine 20 MG PO ×3 (04:11→20:31)
[2024-06-01] MEDS: TYLENOL 500 MG PO (05:44)
[2024-06-01] MEDS: ProAmatine 10 MG PO (07:55)
[2024-06-01] MEDS: FLEXBUMIN 25% FOR HEMODIALYSIS 12.5 GRAMS IV ×2 (08:20→10:15)
[2024-06-01] MEDS: MANNITOL 25% 12.5 GRAMS IV ×2 (08:22→10:19)
[2024-06-01 08:23] LABS: Hematocrit 26.3 % (37.0-47.0); Hemoglobin 8.2 g/dL (12.0-16.0)
[2024-06-01] MEDS: SYMBICORT 160/4.5 MCG INHALER 2 PUFF INH ×2 (08:29→19:16)
[2024-06-01 08:44] LABS: Carbon Dioxide 31 mmol/L (22-30); Chloride 105 mmol/L (98-107); Potassium 3.9 mmol/L (3.5-5.1); Sodium 140 mmol/L (135-145)
[2024-06-01] MEDS: RETACRIT 10000 UNITS IV (09:24)
--- NOTE | 2024-06-01 09:38 | W.PN.ID1 ---
Date of Service
Date of Service: June 01, 2024
Today's Communication
- c/w meropenem 1g IV q24.
- Organism MDRO, recommend dc HD catheter, cx tip.
- will dc HD catheter after dialysis today
- can continue oral vanc BID given known colonization with c diff
- continue enhanced contact precautions for C difficile while in house; the zoster rash is covered with a loose dressing
Assessment / Plan
ESBL-Enterobacter bacteremia x 2 sets
Possible HD cath source
Asymptomatic Klebsiella Bacteriuria
Hypotension
Treated Pneumonia with resolving infiltrates
Colonization with C difficile
Shingles below L breast - resolving
ESRD on HD via HD catheter
Reported allergy to cephalexin (unknown)
-CT a/p: no abscess/infection
- Repeat blood cx's x 2 (before meropenem) - no growth to date
- c/w meropenem 1g IV q24.
- Organism MDRO, recommend dc HD catheter, cx tip.
- will dc HD catheter after dialysis today
- can continue oral vanc BID given known colonization with c diff
- continue enhanced contact precautions for C difficile while in house; the zoster rash is covered with a loose dressing
- continue valtrex for 7-10 days
- follow clinically
Chief Complaint
-: Bacteremia and Other (asymptomatic bacteruria)
Subjective / Review of Systems
remains afebrile
bp stable
for HD cath today after HD
no complaints
Vital Signs / Physical Exam
Vital Signs
Vital Signs
Temp Pulse Resp BP Pulse Ox
97.8 F 74 16 106/52 93
06/01/24 03:51 06/01/24 08:30 06/01/24 08:30 06/01/24 07:55 06/01/24 05:00
Physical Exam
Constitutional: No Acute Distress and Chronically Ill
Cardiovascular: Regular Rate and S1/S2; Negative Murmur or Rub
Pulmonary: Clear and Symmetric; Negative Wheezes or Rales
Gastrointestinal: Soft, Non Tender, Non Distended and Normal Bowel Sounds
Skin: Warm and Dry; Negative Rash or Jaundice
Lines: HD Cath (no erythema, warmth or tenderness, functional)
Objective Data
Lab Data
Lab Results
06/01/24 07:54
06/01/24 07:54
Estimated Creat Clear 34 ml/min 05/30/24 04:34
Total Bilirubin 0.5 mg/dl (0.2-1.3) 05/26/24 16:18
AST 22 U/L (14-36) 05/26/24 16:18
ALT 26 U/L (0-35) 05/26/24 16:18
Alkaline Phosphatase 99 U/L (38-126) 05/26/24 16:18
Most recent labs reviewed.
Micro Results:
05/29/24 12:11 Blood Culture - Preliminary
Blood/Venous Enterobacter species
Gram Stain - Preliminary
05/29/24 12:43 Blood Culture - Preliminary
Blood/Venous Enterobacter species
Gram Stain - Preliminary
05/31/24 06:08 Blood Culture - Preliminary
Blood/Venous No Growth in 24 hours- Final report to follow
05/31/24 06:08 Blood Culture - Preliminary
Blood/Venous No Growth in 24 hours- Final report to follow
06/01/24 04:09 Blood Culture - Pending
Blood/Venous
06/01/24 04:09 Blood Culture - Pending
Blood/Venous
05/26/24 17:24 Salmonella/Shigella Culture - Final
Feces/Stool No Salmonella, Shigella, Aeromonas or Plesiomonas species
isolated.
Campylobacter Culture - Final
No Campylobacter species isolated.
Shiga Toxin Test - Final
No E. coli Shiga Toxin 1 or 2 detected.
05/26/24 17:24 Urine Culture - Final
Urine Klebsiella pneumoniae
05/26/24 23:43 MRSA Screen - Final
Nose Staph aureus MRSA
05/26/24 17:24 C. difficile GDH Antigen & Toxins - Final
Feces/Stool C. difficile antigen positive, toxin negative.
Clostridium difficile present, but toxin not detected.
Patient may be a carrier, colonized with nontoxinogenic
strain or the level of toxin in sample is below detection
limits. This information should be used in conjunction with
the patient's clinical history.
- Final
Negative for Norovirus GI and GII.
05/29/24 CT a/P:
1. No CT evidence for acute retroperitoneal or intraperitoneal hemorrhage.
2. Moderate to severe bilateral renal cortical volume loss and severe scarring in the lateral cortex of the left kidney consistent with END-STAGE RENAL DISEASE.
3. Severe calcific atherosclerotic plaque in the abdominal aorta and common iliac arteries.
4. Mild splenomegaly.
5. Severe diverticulosis in the sigmoid colon.
6. Small bilateral pleural effusions with adjacent bilateral lower lobe airspace consolidation (possibly right lower lobe pneumonia).
7. Severe calcific atherosclerotic plaque in the coronary arteries and thoracic aorta.
8. Mild cardiomegaly.
9. 6.8 mm pulmonary nodule in the lateral segment of the right middle lobe (possibly infectious or inflammatory in etiology). A follow-up chest CT examination in 6-12 months is recommended
10. Moderate anasarca.
11. Moderate to severe paraspinal and pelvic muscle atrophy.
12. Severe discogenic degenerative disease at L4/L5 and L5/S1.
--- NOTE | 2024-06-01 10:08 | W.PN.NEPH.HD ---
Assessment
-
ESRD MWF
Bacteremia
Permacath removed today
Surveillance blood cultures defer to infectious disease
May be okay to hold dialysis through with hopes of permacath reinsertion once blood cultures are negative otherwise will need temporary cath
Progress Note - Hemodialysis
-
Date of Service: June 01, 2024
Duration: 3 hours
Potassium Bath: 3
Calcium Bath: 2.5
Opti-Dialyzer: 160
Ultrafiltration: Other (Ultrafiltration decreased to 500 mL with no weight gain and moderate hypotension)
Blood Flow: 400
Dialysate Flow: 600
Heparin: Bolus
EPO: 10K unit
--- NOTE | 2024-06-01 10:52 | PTCARENOTE ---
AM meds delayed due to pt having HD this AM. Meds will be administered once HD is complete.
[2024-06-01] MEDS: VALTREX 500 MG PO (11:51)
[2024-06-01] MEDS: FOLVITE 1 MG PO (11:51)
[2024-06-01] MEDS: CRESTOR 5 MG PO (11:51)
[2024-06-01] MEDS: SINGULAIR 10 MG PO (11:51)
[2024-06-01] MEDS: VISBIOME 2 CAP PO (11:51)
[2024-06-01] MEDS: NEURONTIN 100 MG PO (11:52)
[2024-06-01] MEDS: PACERONE 200 MG PO (11:52)
[2024-06-01] MEDS: FIRVANQ 125 MG PO ×2 (11:55→20:33)
[2024-06-01] MEDS: HEPARIN 5000 UNITS SC ×2 (11:55→20:33)
[2024-06-01] MEDS: DESENEX/MITRAZOL/ZEASORB 1 APPLIC TOPICAL ×3 (11:56→21:24)
[2024-06-01] MEDS: DEBROX EAR DROPS 1 DROP OTIC ×2 (11:57→20:38)
[2024-06-01] MEDS: DAKIN'S SOLUTION 0.125% 1/4 STRENGTH 1 ML TOPICAL (11:57)
[2024-06-01] MEDS: PROTONIX IV 40 MG IV ×2 (11:57→20:33)
[2024-06-01] MEDS: ZINC OXIDE OINTMENT 1 APPLIC TOPICAL ×3 (11:58→20:42)
[2024-06-01] MEDS: STERILE WATER FOR INJECTION IV ×2 (11:59→15:32)
[2024-06-01] MEDS: NSS (PRESERVATIVE FREE) 10 ML IV ×2 (12:02→20:32)
[2024-06-01] MEDS: MERREM 1000 MG IV (15:27)
[2024-06-01] MEDS: STERILE WATER FOR INJECTION 20 ML IV (15:28)
--- NOTE | 2024-06-01 15:39 | W.PN.HOSP.TC ---
Today's Communication/Plan
-
Assessment / Plan
Assessment / Plan
General: Well Developed, Well Nourished, No Apparent Distress, Comfortable and Conversant
HEENT: NormoCephalic, Moist mucous membranes, Atraumatic
Respiratory: Clear and Non Labored Respirations
RACWPC
Cardiac: S1/S2 and Regular Rhythm; No Murmur, Rub or Gallop
GI: Soft, Non Tender, Non Distended and Normal Bowel Sounds
Musculoskeletal: left thigh wound
Skin: Warm a
Neuro: Awake, AO x 3 and Nonfocal/grossly intact
Psych: Calm and Intact Judgment/Insight
Assessment:
Enterobacter bacteremia/GNR
-Continue ivatb, start alexandre per ID
-Repeat bcx, no growth to date, repeat till greater than 48 hours neg
-unsure of source, will plan to remove RACWPC, tip culture
---IR consulted for HD catheter removal
-ID following
ongoing Hypotension, multifactorial.
- Asymptomatic
- Hypoalbuminemia, start Ensure TID
- Without evidnece of active GI bleed, Hgb stable
- AM cortisol normal
- Echo with normal EF, no significant valve pathology
Anemia with heme + stool; likely Could be exacerbated by Eliquis
Hgb most recently 8.1. s/p 2 unit PRBCs this hospitalization
Heme positive stool
frequent loose stools with recent C. Diff history
GI following; d/w daughter and holding off EGD/Colonoscopy at this time
Eliquis remains held
continue Protonix BID
Norovirus negative, C. difficile toxin negative however antigen positive
Prolonged recent hospitalization at [facility]. Requested records. Recently moved to [facility]
Per daughter it appeared that patient had septic shock there secondary to left groin abscess. then later developed renal failure, Cdiff, also had pneumonia. CXR here with 'pneumonia' likely residual, no active symptoms. Not on Abx.
Chronic hypoxic respiratory insufficiency suspect related to chronic hospitalization, deconditioning
- wean O2 as able.
ESRD on HD
HD schedule
appears to be making urine as ED RN cathed her for 1100cc urine, cloudy
Nephrology following
continue midodrine - increased to 20mg TID on 05/28 by Nephrology
acute urinary retention
Asymptomatic bacteruria
- s/p Griffiths
- no indication for Abx per ID for urine culture growing Klebsiella
parox a-fib
continue amiodarone
Eliquis remains held as Hb stabilizes
herpes zoster
rash under left breast that round to left back, some appear to be getting better
continue valacyclovir x 10 days per ID; precautions
hyperlipidemia
continue rosuvastatin
Hx c-diff colitis
continue PO Vanco; continue probiotics
osteoarthritis
Chronic wounds
- L anterior upper thigh full thickness wound to subcutaneous layer, pink that can be visualized, undermines medially about 3cm, mod-large amount of murky serous drainage. Skin mild red around wound suspect r/t moisture.
- L medial upper thigh with a linear dermal ulcer suspect from rubbing and previous diaper use.
- Sacral crease stage 2 pressure injury along with MASD
- bilateral sacral buttocks stage 2 pressure injuries along with MASD.
- Perineal MASD.
- L medial posterior thigh linear red ecchymotic area.
- Small abrasions on R posterior ankle/calf. Heels slow to libby red/boggy.
- L anterior, lateral and posterior chest/back with scattered zoster lesions.
- follow wound care recs
Code status: DNR
DVT Prophylaxis: heparin
Anticipated Discharge: > 48 hours
Subjective/Interval History
-
Date of Service: June 01, 2024
Seen and examined. No new complaints. No acute overnight events.
Had just completed dialysis. Awaiting to be taken down to IR for hemodialysis catheter removal
Objective Data
-
Labs:
Laboratory Results
06/01/24
07:54
Hgb 8.2 L
Hct 26.3 L
Sodium 140
Potassium 3.9
Chloride 105
Carbon Dioxide 31 H
Vital Signs:
Vital Signs
Temp Pulse Resp BP Pulse Ox
98 F 83 27 102/49 96
06/01/24 11:30 06/01/24 12:00 06/01/24 12:00 06/01/24 12:00 06/01/24 07:00
I&O
05/31/24 06/01/24 06/02/24
06:59 06:59 06:59
Intake Total 1000 / 1000 480 / 480 120 / 120
Output Total 2 / 2
Balance 1000 / 1000 478 / 478 120 / 120
--- NOTE | 2024-06-01 16:22 | CM ---
Patient from [facility] with Hx ESRD on HD, chronic wounds. Room air. Receiving PO Vanco. Seen by wound care nurse. PT/OT Marika pending.
Message to Dr Zimmerman requesting new PT/OT orders due to transfer to IMU.
Patient will need insurance auth to return to SNF with rehab.
Plan follow up after seen by PT/OT.
Plan return to [facility] when medically ready and insurance approves.
--- NOTE | 2024-06-01 18:07 | PTCARENOTE ---
Pt tolerated HD well, had HD cath removed in IR. fair appetite today. resting comfortably, vital signs stable.
[2024-06-02] VITALS (17 sets, daily range): BP systolic 87–107; BP diastolic 48–64; PULSE 83; O2SAT 97; BMI 32.0
[2024-06-02] MEDS: ProAmatine 20 MG PO ×3 (04:34→19:41)
[2024-06-02 06:36] LABS: Hematocrit 26.4 % (37.0-47.0); Mean Corp Hgb Conc. 30.3 g/dL (33.0-37.0); Mean Corpuscular Hgb 29.6 pg (27.0-31.0); Mean Corpuscular Volume 97.8 fL (81.0-99.0); Mean Platelet Volume 9.5 fL (7.4-10.4); Platelet Count 114 10^3/uL (130-400); Red Cell Dist. Width 21.8 % (11.5-14.5); White Blood Cell Count 3.4 10^3/uL (4.8-10.8)
[2024-06-02] MEDS: SYMBICORT 160/4.5 MCG INHALER 2 PUFF INH ×2 (07:33→19:42)
[2024-06-02] MEDS: VISBIOME 2 CAP PO (08:37)
[2024-06-02] MEDS: CRESTOR 5 MG PO (08:37)
[2024-06-02] MEDS: VALTREX 500 MG PO (08:37)
[2024-06-02] MEDS: NEURONTIN 100 MG PO (08:37)
[2024-06-02] MEDS: FOLVITE 1 MG PO (08:37)
[2024-06-02] MEDS: SINGULAIR 10 MG PO (08:38)
[2024-06-02] MEDS: PACERONE 200 MG PO (08:38)
[2024-06-02] MEDS: FIRVANQ 125 MG PO ×2 (08:38→19:41)
[2024-06-02] MEDS: HEPARIN 5000 UNITS SC ×2 (08:38→19:39)
[2024-06-02] MEDS: NSS (PRESERVATIVE FREE) 10 ML IV ×2 (08:39→19:37)
[2024-06-02] MEDS: PROTONIX IV 40 MG IV ×2 (08:39→19:36)
--- NOTE | 2024-06-02 08:57 | W.PN.ID1 ---
Addendum entered and electronically signed by Harmony Glass MD 06/02/24 12:16:
Isolate back - CRE, swithed to Avycaz, additional sensi requested
Original Note:
Date of Service
Date of Service: June 02, 2024
Today's Communication
- given progressive pancytopenia, switched to zosyn
- follow up sensitivities of the Enterobacter
Assessment / Plan
ESBL-Enterobacter bacteremia x 2 sets
Possible HD cath source
Asymptomatic Klebsiella Bacteriuria
Hypotension
Treated Pneumonia with resolving infiltrates
Colonization with C difficile
Shingles below L breast - resolving
ESRD on HD via HD catheter
Reported allergy to cephalexin (unknown)
- blood cultures x2 enterobacter
- Repeat blood cx's x 2 (before meropenem) - no growth to date
- HD cath removed 06/01
- given progressive pancytopenia, switched to zosyn
- follow up sensitivities
- can continue oral vanc BID given known colonization with c diff
- continue enhanced contact precautions for C difficile while in house; the zoster rash is covered with a loose dressing
- completed course of valtrex - stopped
- follow clinically
Chief Complaint
-: Bacteremia and Other (asymptomatic bacteruria)
Subjective / Review of Systems
afebrile
bp stable
Vital Signs / Physical Exam
Vital Signs
Vital Signs
Temp Pulse Resp BP Pulse Ox
97.6 F 74 17 102/56 97
06/02/24 03:18 06/02/24 08:38 06/02/24 07:35 06/02/24 08:38 06/02/24 07:35
Physical Exam
Constitutional: No Acute Distress
Cardiovascular: Regular Rate and S1/S2; Negative Murmur or Rub
Pulmonary: Clear and Symmetric; Negative Wheezes or Rales
Gastrointestinal: Soft, Non Tender, Non Distended and Normal Bowel Sounds
Skin: Warm and Dry; Negative Rash or Jaundice
Wound: Other (L thorax dressing clean, dry, intact)
Objective Data
Lab Data
Lab Results
06/02/24 05:41
06/01/24 07:54
Estimated Creat Clear 34 ml/min 05/30/24 04:34
Total Bilirubin 0.5 mg/dl (0.2-1.3) 05/26/24 16:18
AST 22 U/L (14-36) 05/26/24 16:18
ALT 26 U/L (0-35) 05/26/24 16:18
Alkaline Phosphatase 99 U/L (38-126) 05/26/24 16:18
Most recent labs reviewed.
Micro Results:
05/29/24 12:11 Blood Culture - Preliminary
Blood/Venous Enterobacter species
Gram Stain - Preliminary
05/31/24 06:08 Blood Culture - Preliminary
Blood/Venous No Growth in 48 hours- Final report to follow
05/31/24 06:08 Blood Culture - Preliminary
Blood/Venous No Growth in 48 hours- Final report to follow
06/01/24 04:09 Blood Culture - Preliminary
Blood/Venous No Growth in 24 hours- Final report to follow
06/01/24 04:09 Blood Culture - Preliminary
Blood/Venous No Growth in 24 hours- Final report to follow
06/01/24 14:45 Catheter Tip Culture - Pending
Dialysis Line
05/29/24 12:43 Blood Culture - Preliminary
Blood/Venous Enterobacter species
Gram Stain - Preliminary
05/26/24 17:24 Salmonella/Shigella Culture - Final
Feces/Stool No Salmonella, Shigella, Aeromonas or Plesiomonas species
isolated.
Campylobacter Culture - Final
No Campylobacter species isolated.
Shiga Toxin Test - Final
No E. coli Shiga Toxin 1 or 2 detected.
05/26/24 17:24 Urine Culture - Final
Urine Klebsiella pneumoniae
05/26/24 23:43 MRSA Screen - Final
Nose Staph aureus MRSA
05/26/24 17:24 C. difficile GDH Antigen & Toxins - Final
Feces/Stool C. difficile antigen positive, toxin negative.
Clostridium difficile present, but toxin not detected.
Patient may be a carrier, colonized with nontoxinogenic
strain or the level of toxin in sample is below detection
limits. This information should be used in conjunction with
the patient's clinical history.
- Final
Negative for Norovirus GI and GII.
05/29/24 CT a/P:
1. No CT evidence for acute retroperitoneal or intraperitoneal hemorrhage.
2. Moderate to severe bilateral renal cortical volume loss and severe scarring in the lateral cortex of the left kidney consistent with END-STAGE RENAL DISEASE.
3. Severe calcific atherosclerotic plaque in the abdominal aorta and common iliac arteries.
4. Mild splenomegaly.
5. Severe diverticulosis in the sigmoid colon.
6. Small bilateral pleural effusions with adjacent bilateral lower lobe airspace consolidation (possibly right lower lobe pneumonia).
7. Severe calcific atherosclerotic plaque in the coronary arteries and thoracic aorta.
8. Mild cardiomegaly.
9. 6.8 mm pulmonary nodule in the lateral segment of the right middle lobe (possibly infectious or inflammatory in etiology). A follow-up chest CT examination in 6-12 months is recommended
10. Moderate anasarca.
11. Moderate to severe paraspinal and pelvic muscle atrophy.
12. Severe discogenic degenerative disease at L4/L5 and L5/S1.
--- NOTE | 2024-06-02 11:00 | W.PN.NEPH.PH ---
Today's Communication / Plan
-
Continue antibiotics pending permacath or temporary dialysis cath placed
Assessment/Plan
-
Assessment
ESRD
Gram-negative bacilli bacteremia
Acute anemia
GI bleed
Hyperlipidemia
Hypotension on midodrine
Recent sepsis/C. difficile
Recent urinary retention
Plan
Check cortisol level : 19
checked echocardiogram: No LV dysfunction or profound valvular abnormalities
CT of abdomen reviewed no evidence of retroperitoneal bleed re: ongoing anemia
Gram-negative bacilli bacteremia =- blood cultures x2 enterobacter
- Repeat blood cx's x 2 (before meropenem) - no growth to date as of 05/31/2024
- HD cath removed 06/01
- progressive pancytopenia, switched to zosyn
-Remains on oral vancomycin for colonizing
Patient with significant hypoalbuminemia of 2.2 affecting effective circulating volume and with subsequent hemodynamic instability
She had dialysis yesterday Saturday next treatment will be Saturday
It has been 48 hours negative cultures hopefully can place a PermCath tomorrow which would be 72 hours/I will discuss with infectious disease
-
-
Date of Service: June 02, 2024
CC / HPI / ROS
-
Chief Complaint:
ESRD
History of Present Illness:
Remains hypotensive on midodrine 20mg q8
Continued antibiotic
Otherwise stable
Review of Systems:
No chest pain or shortness of breath
No fevers
Labs
-
Labs:
WBC 3.4 10^3/uL (4.8-10.8) L 06/02/24 05:41
RBC 2.70 10^6/uL (4.20-5.40) L 06/02/24 05:41
Hgb 8.0 g/dL (12.0-16.0) L 06/02/24 05:41
Hct 26.4 % (37.0-47.0) L 06/02/24 05:41
Plt Count 114 10^3/uL (130-400) L D 06/02/24 05:41
Sodium 140 mmol/L (135-145) 06/01/24 07:54
Potassium 3.9 mmol/L (3.5-5.1) 06/01/24 07:54
Chloride 105 mmol/L (98-107) 06/01/24 07:54
Carbon Dioxide 31 mmol/L (22-30) H 06/01/24 07:54
BUN 7 mg/dl (7-17) 05/30/24 04:34
Creatinine 1.5 mg/dL (0.6-1.0) H 05/30/24 04:34
eGFR 36.80 05/30/24 04:34
Glucose 80 mg/dl (70-99) 05/30/24 04:34
Calcium 8.2 mg/dl (8.4-10.2) L 05/30/24 04:34
Albumin 2.2 g/dl (3.5-5.0) L 05/26/24 16:18
Physical Exam
-
Vital Signs:
Vital Signs
Temp Pulse Resp BP Pulse Ox
98.5 F 74 17 102/56 97
06/02/24 07:30 06/02/24 08:38 06/02/24 07:35 06/02/24 08:38 06/02/24 07:35
Cardiovascular:: Regular rate and rhythm
Respiratory:: Bilateral: Coarse
Lung Excursion:: Normal
Abdomen:: Nontender and Soft
Bowel Sounds:: Normal
Extremity Edema:: +1: Bilateral:
Grfifiths Catheter: No
[2024-06-02] MEDS: DAKIN'S SOLUTION 0.125% 1/4 STRENGTH 473 ML TOPICAL (12:15)
[2024-06-02] MEDS: DEBROX EAR DROPS 1 DROP OTIC ×2 (12:15→19:47)
[2024-06-02] MEDS: DESENEX/MITRAZOL/ZEASORB 1 APPLIC TOPICAL ×2 (12:15→17:04)
[2024-06-02] MEDS: ZINC OXIDE OINTMENT 1 APPLIC TOPICAL ×2 (12:16→17:04)
[2024-06-02] MEDS: [UNRECOGNIZED DRUG - OTHER] 54.512 MG IV (12:23)
[2024-06-02] MEDS: STERILE WATER FOR INJECTION IV (12:32)
--- NOTE | 2024-06-02 17:19 | W.PN.HOSP.TC ---
Today's Communication/Plan
-
Assessment / Plan
Assessment / Plan
General: Well Developed, Well Nourished, No Apparent Distress, Comfortable and Conversant
HEENT: NormoCephalic, Moist mucous membranes, Atraumatic
Respiratory: Clear and Non Labored Respirations
RACWPC
Cardiac: S1/S2 and Regular Rhythm; No Murmur, Rub or Gallop
GI: Soft, Non Tender, Non Distended and Normal Bowel Sounds
Musculoskeletal: left thigh wound
Skin: Warm a
Neuro: Awake, AO x 3 and Nonfocal/grossly intact
Psych: Calm and Intact Judgment/Insight
Assessment:
Enterobacter bacteremia/GNR
-Continue ivatb, start alexandre per ID
-Repeat bcx, no growth to date, repeat till greater than 48 hours neg
-unsure of source, will plan to remove RACWPC, tip culture
---follow up tip culture, ngtd
-ID following
ongoing Hypotension, multifactorial.
- Asymptomatic
- Hypoalbuminemia, start Ensure TID
- Without evidnece of active GI bleed, Hgb stable
- AM cortisol normal
- Echo with normal EF, no significant valve pathology
Anemia with heme + stool; likely Could be exacerbated by Eliquis
Hgb most recently 8.1. s/p 2 unit PRBCs this hospitalization
Heme positive stool
frequent loose stools with recent C. Diff history
GI following; d/w daughter and holding off EGD/Colonoscopy at this time
Eliquis remains held
continue Protonix BID
Norovirus negative, C. difficile toxin negative however antigen positive
Prolonged recent hospitalization at [facility]. Requested records. Recently moved to [facility]
Per daughter it appeared that patient had septic shock there secondary to left groin abscess. then later developed renal failure, Cdiff, also had pneumonia. CXR here with 'pneumonia' likely residual, no active symptoms. Not on Abx.
Chronic hypoxic respiratory insufficiency suspect related to chronic hospitalization, deconditioning
- wean O2 as able.
ESRD on HD
HD schedule
appears to be making urine as ED RN cathed her for 1100cc urine, cloudy
Nephrology following
continue midodrine - increased to 20mg TID on 05/28 by Nephrology
permacath removed by IR for likely suspect source of infection
-likley place back in once cultures are 48hr neg
acute urinary retention
Asymptomatic bacteruria
- s/p Griffiths
- no indication for Abx per ID for urine culture growing Klebsiella
parox a-fib
continue amiodarone
Eliquis remains held as Hb stabilizes
herpes zoster
rash under left breast that round to left back, some appear to be getting better
continue valacyclovir x 10 days per ID; precautions
hyperlipidemia
continue rosuvastatin
Hx c-diff colitis
continue PO Vanco; continue probiotics
osteoarthritis
Chronic wounds
- L anterior upper thigh full thickness wound to subcutaneous layer, pink that can be visualized, undermines medially about 3cm, mod-large amount of murky serous drainage. Skin mild red around wound suspect r/t moisture.
- L medial upper thigh with a linear dermal ulcer suspect from rubbing and previous diaper use.
- Sacral crease stage 2 pressure injury along with MASD
- bilateral sacral buttocks stage 2 pressure injuries along with MASD.
- Perineal MASD.
- L medial posterior thigh linear red ecchymotic area.
- Small abrasions on R posterior ankle/calf. Heels slow to libby red/boggy.
- L anterior, lateral and posterior chest/back with scattered zoster lesions.
- follow wound care recs
Code status: DNR
DVT Prophylaxis: heparin
Anticipated Discharge: > 48 hours
Subjective/Interval History
-
Date of Service: June 02, 2024
seen and examined
no new complaints
no acute overnight events
Objective Data
-
Labs:
Laboratory Results
06/02/24
05:41
WBC 3.4 L
Hgb 8.0 L
Hct 26.4 L
Plt Count 114 L D
Vital Signs:
Vital Signs
Temp Pulse Resp BP Pulse Ox
98.4 F 83 21 98/55 97
06/02/24 11:51 06/02/24 14:17 06/02/24 14:17 06/02/24 14:17 06/02/24 14:55
I&O
06/01/24 06/02/24 06/03/24
06:59 06:59 06:59
Intake Total 480 / 480 120 / 120
Output Total 2 / 2
Balance 478 / 478 120 / 120
--- NOTE | 2024-06-02 17:42 | PTCARENOTE ---
Assumed care of patient at beginning of this shift from previous RN. Wound care completed per orders; see documentation. Patient worked with PT/OT. See worklist for full assessment and vital signs.
[2024-06-03] VITALS (32 sets, daily range): BP systolic 82–117; BP diastolic 42–67; BMI 33.7
[2024-06-03] MEDS: ZINC OXIDE OINTMENT 1 APPLIC TOPICAL ×4 (00:14→22:06)
[2024-06-03] MEDS: DESENEX/MITRAZOL/ZEASORB 1 APPLIC TOPICAL ×4 (00:14→22:05)
[2024-06-03] MEDS: ProAmatine 20 MG PO ×3 (03:34→20:04)
[2024-06-03 04:28] LABS: Blood Urea Nitrogen 19 mg/dl (7-17); Calcium 8.5 mg/dl (8.4-10.2); Carbon Dioxide 32 mmol/L (22-30); Chloride 104 mmol/L (98-107); Estimated Creatinine Clearance 27 ml/min; Glucose 84 mg/dl (70-99); Potassium 4.2 mmol/L (3.5-5.1); Sodium 138 mmol/L (135-145); eGFR 27.71
[2024-06-03 04:33] LABS: % Eosinophils 3.9 % (0-6); % Monocytes 9.4 % (1.7-9.3); % Neutrophils 44.7 % (42.2-75.2); Absolute Eosinophils 0.1 10^3/uL (0-0.7); Absolute Lymphocytes 1.3 10^3/uL (1.2-3.4); Absolute Monocytes 0.3 10^3/uL (0.1-0.6); Absolute Neutrophils 1.4 10^3/uL (1.4-6.5); Hematocrit 27.8 % (37.0-47.0); Hemoglobin 8.6 g/dL (12.0-16.0); Mean Corp Hgb Conc. 30.9 g/dL (33.0-37.0); Mean Corpuscular Hgb 29.6 pg (27.0-31.0); Mean Corpuscular Volume 95.5 fL (81.0-99.0); Mean Platelet Volume 9.7 fL (7.4-10.4); Nucleated Red Blood Cells % 0 %; Platelet Count 127 10^3/uL (130-400); Red Blood Cell Count 2.91 10^6/uL (4.20-5.40); Red Cell Dist. Width 22.2 % (11.5-14.5); White Blood Cell Count 3.1 10^3/uL (4.8-10.8)
--- NOTE | 2024-06-03 05:08 | PTCARENOTE ---
Rec'd pt at change of shift, pt AAOx3, pleasant. VSS. Pt with hypotension at times, midodrine given per MAR. Pt able to take PO meds whole in applesauce. Pt 98% on 1L O2. This RN attempted to titrate O2 off and SaO2 dropped to 88%. Wounds assessed
and cared for per orders, see worklist. Q2T schedule in place, but pt does prefer pillows under both hips. Education provided on the importance of turning and repositioning to prevent further skin breakdown.
[2024-06-03 06:52] LABS: Anisocytosis 2+; Normal RBC Morphology No
[2024-06-03 06:54] LABS: Basophilic Stippling Occasional; Hypochromasia 1+; Polychromasia 1+; Target Cells Occasional
[2024-06-03 06:56] LABS: Ovalocytes Occasional; Stomatocytes 1+
[2024-06-03] MEDS: SYMBICORT 160/4.5 MCG INHALER 2 PUFF INH ×2 (07:31→19:42)
[2024-06-03] MEDS: HEPARIN 5000 UNITS SC ×2 (08:40→20:03)
[2024-06-03] MEDS: SINGULAIR 10 MG PO (08:40)
[2024-06-03] MEDS: NEURONTIN 100 MG PO (08:40)
[2024-06-03] MEDS: FOLVITE 1 MG PO (08:40)
[2024-06-03] MEDS: NSS (PRESERVATIVE FREE) 10 ML IV ×2 (08:40→20:04)
[2024-06-03] MEDS: FIRVANQ 125 MG PO ×2 (08:40→20:03)
[2024-06-03] MEDS: VISBIOME 2 CAP PO (08:40)
[2024-06-03] MEDS: CRESTOR 5 MG PO (08:40)
[2024-06-03] MEDS: PROTONIX IV 40 MG IV ×2 (08:41→20:04)
[2024-06-03] MEDS: DAKIN'S SOLUTION 0.125% 1/4 STRENGTH 473 ML TOPICAL (08:43)
[2024-06-03] MEDS: DEBROX EAR DROPS 1 DROP OTIC ×2 (08:43→20:03)
--- NOTE | 2024-06-03 09:08 | W.PN.NEPH.PH ---
Today's Communication / Plan
-
Next dialysis will be for tomorrow
Temp HD catheter to be placed
Assessment/Plan
-
Assessment
ESRD
Gram-negative bacilli bacteremia
Acute anemia
GI bleed
Hyperlipidemia
Hypotension on midodrine
Recent sepsis/C. difficile
Recent urinary retention
Plan
Check cortisol level : 19
checked echocardiogram: No LV dysfunction or profound valvular abnormalities
CT of abdomen reviewed no evidence of retroperitoneal bleed re: ongoing anemia
Gram-negative bacilli bacteremia =- blood cultures x2 enterobacter
- Repeat blood cx's x 2 (before meropenem) - no growth to date as of 05/31/2024
- HD cath removed 06/01
- progressive pancytopenia, switched to Cefidercocol
-Remains on oral vancomycin for colonizing
-Patient remains hypotensive with systolic in the 80s
Patient with significant hypoalbuminemia of 2.2 affecting effective circulating volume and with subsequent hemodynamic instability
She had dialysis yesterday Saturday next treatment will be for tomorrow
It has been 72 hours negative cultures but patient continues with pancytopenia and has antibiotic resistance
After discussion with infectious disease we will put a temporary dialysis catheter in tomorrow
-
-
Date of Service: June 03, 2024
CC / HPI / ROS
-
Chief Complaint:
ESRD
History of Present Illness:
Remains hypotensive on midodrine 20mg q8
Continued antibiotic for Enterobacter bacteremia
ESRD on chronic Saturday
Review of Systems:
No chest pain or shortness of breath
No fevers
Labs
-
Labs:
WBC 3.1 10^3/uL (4.8-10.8) L 06/03/24 03:47
RBC 2.91 10^6/uL (4.20-5.40) L 06/03/24 03:47
Hgb 8.6 g/dL (12.0-16.0) L 06/03/24 03:47
Hct 27.8 % (37.0-47.0) L 06/03/24 03:47
Plt Count 127 10^3/uL (130-400) L 06/03/24 03:47
Sodium 138 mmol/L (135-145) 06/03/24 03:47
Potassium 4.2 mmol/L (3.5-5.1) 06/03/24 03:47
Chloride 104 mmol/L (98-107) 06/03/24 03:47
Carbon Dioxide 32 mmol/L (22-30) H 06/03/24 03:47
BUN 19 mg/dl (7-17) H 06/03/24 03:47
Creatinine 1.9 mg/dL (0.6-1.0) H 06/03/24 03:47
eGFR 27.71 06/03/24 03:47
Glucose 84 mg/dl (70-99) 06/03/24 03:47
Calcium 8.5 mg/dl (8.4-10.2) 06/03/24 03:47
Albumin 2.2 g/dl (3.5-5.0) L 05/26/24 16:18
Physical Exam
-
Vital Signs:
Vital Signs
Temp Pulse Resp BP Pulse Ox
97.6 F 77 18 98/59 96
06/03/24 02:30 06/03/24 07:35 06/03/24 07:35 06/03/24 05:00 06/03/24 07:35
Cardiovascular:: Regular rate and rhythm
Respiratory:: Bilateral: Coarse
Lung Excursion:: Normal
Abdomen:: Nontender and Soft
Bowel Sounds:: Normal
Extremity Edema:: +1: Bilateral:
Griffiths Catheter: No
[2024-06-03] MEDS: FETROJA 108.4 MG IV (10:21)
--- NOTE | 2024-06-03 10:29 | W.PN.ID1 ---
Date of Service
Date of Service: June 03, 2024
Today's Communication
CT L leg to reassess previous I&D site
avycaz and aztreonam for CRE; additional sensitivities pending
cath tip culture with very low sensitivity, still suspect its most likely source
Assessment / Plan
CRE - Enterobacter (MDRO)
Suspected HD cath source
Asymptomatic Klebsiella Bacteriuria
Hypotension - persists
Treated Pneumonia with resolving infiltrates
Colonization with C difficile
Shingles below L breast - resolving
ESRD on HD - line holiday
Reported allergy to cephalexin (unknown)
- 05/29 blood cultures x2 enterobacter - CRE with resistance to avycaz and eravacycline
- switch to ceftazidime-avibactam plus aztreonam; clinical pharmacy also obtaining meropenem-vaborbactam as an alternative. Had a dose of cefiderocol this AM, however found a reference citing upwards of 80% of isolates resistant to ceftaz-shaylee also
showing resistance with cefideracol and thus stopped that regimen
- sensitivities to cefiderocol, meropenem-vaborbactam and polymyxin requested; combination of aztreonam and avycaz sensitivities not available commercially
- another alternative would potentially be aztreonam and avycaz
- 05/31 Repeat blood cx's x 2 (before meropenem) - no growth to date
- HD cath removed 06/01 - cath tip culture sensitivity very low, approximately 20%; most likely source
- pneumonia thought to be less likely source given lack of suggestive symptoms patient with a recent diagnosis of pneumonia at [facility] (possibly a resolving infiltrate)
- previous groin I&D site healed, overlying intertrigo vs cellulitis - CT of the lower extremity without contrast
- shingles on back healed, under the breast some crusting, some open lesions
- would not put in a tunneled HD cath today, patient has yet to receive an antibiotic proven effective for this MDRO, prefer to continue the line holiday while obtaining nonformulary antibiotics as I do not see an urgent need for HD at this moment,
if felt essential a nontunneled line can be considered by nephrology for the moment
- continue oral vanc BID given known colonization with c diff
- continue enhanced contact precautions for C difficile while in house; also plan to continue precautions given CRE
- completed course of valtrex - stopped
- follow clinically
Total time spent today was approx 87 minutes for this encounter.� Time included reviewing laboratory tests/imaging results, reviewing pertinent medical records, obtaining and reviewing medical history, performing an appropriate exam, ordering
medications, tests and procedures. �Time also included coordinating patient care and communicating with other health child care education coordinator.�
Chief Complaint
-: Bacteremia (due to MDRO) and Other (sepsis, asymptomatic bacteruria)
Subjective / Review of Systems
remains afebrile
persistent hypotension despite midodrine; note that patient presented on midodrine 10 mg TID
happily bacteremia seems to be clearing
no events overnight
required assist of 2 for PT
Vital Signs / Physical Exam
Vital Signs
Vital Signs
Temp Pulse Resp BP Pulse Ox
97.6 F 77 36 86/47 95
06/03/24 02:30 06/03/24 09:43 06/03/24 09:43 06/03/24 09:43 06/03/24 09:43
Physical Exam
Constitutional: Chronically Ill
Cardiovascular: Regular Rate and S1/S2; Negative Murmur or Rub
Pulmonary: Clear and Symmetric; Negative Wheezes or Rales
Gastrointestinal: Soft, Non Tender, Non Distended and Normal Bowel Sounds
Skin: Warm and Dry; Negative Rash or Jaundice
Objective Data
Lab Data
Lab Results
06/03/24 03:47
06/03/24 03:47
Estimated Creat Clear 27 ml/min 06/03/24 03:47
Total Bilirubin 0.5 mg/dl (0.2-1.3) 05/26/24 16:18
AST 22 U/L (14-36) 05/26/24 16:18
ALT 26 U/L (0-35) 05/26/24 16:18
Alkaline Phosphatase 99 U/L (38-126) 05/26/24 16:18
Most recent labs reviewed.
Micro Results:
06/01/24 14:45 Catheter Tip Culture - Preliminary
Dialysis Line No Growth After 48 Hours
05/29/24 12:11 Blood Culture - Preliminary
Blood/Venous Enterobacter cloacae
Enterobacter cloacae#2
Gram Stain - Preliminary
05/31/24 06:08 Blood Culture - Preliminary
Blood/Venous No Growth in 72 hours- Final report to follow
05/31/24 06:08 Blood Culture - Preliminary
Blood/Venous No Growth in 72 hours- Final report to follow
06/01/24 04:09 Blood Culture - Preliminary
Blood/Venous No Growth in 48 hours- Final report to follow
06/01/24 04:09 Blood Culture - Preliminary
Blood/Venous No Growth in 48 hours- Final report to follow
05/29/24 12:43 Blood Culture - Preliminary
Blood/Venous Enterobacter species
Gram Stain - Preliminary
05/26/24 17:24 Salmonella/Shigella Culture - Final
Feces/Stool No Salmonella, Shigella, Aeromonas or Plesiomonas species
isolated.
Campylobacter Culture - Final
No Campylobacter species isolated.
Shiga Toxin Test - Final
No E. coli Shiga Toxin 1 or 2 detected.
05/26/24 17:24 Urine Culture - Final
Urine Klebsiella pneumoniae
05/26/24 23:43 MRSA Screen - Final
Nose Staph aureus MRSA
05/26/24 17:24 C. difficile GDH Antigen & Toxins - Final
Feces/Stool C. difficile antigen positive, toxin negative.
Clostridium difficile present, but toxin not detected.
Patient may be a carrier, colonized with nontoxinogenic
strain or the level of toxin in sample is below detection
limits. This information should be used in conjunction with
the patient's clinical history.
- Final
Negative for Norovirus GI and GII.
05/29/24 CT a/P:
1. No CT evidence for acute retroperitoneal or intraperitoneal hemorrhage.
2. Moderate to severe bilateral renal cortical volume loss and severe scarring in the lateral cortex of the left kidney consistent with END-STAGE RENAL DISEASE.
3. Severe calcific atherosclerotic plaque in the abdominal aorta and common iliac arteries.
4. Mild splenomegaly.
5. Severe diverticulosis in the sigmoid colon.
6. Small bilateral pleural effusions with adjacent bilateral lower lobe airspace consolidation (possibly right lower lobe pneumonia).
7. Severe calcific atherosclerotic plaque in the coronary arteries and thoracic aorta.
8. Mild cardiomegaly.
9. 6.8 mm pulmonary nodule in the lateral segment of the right middle lobe (possibly infectious or inflammatory in etiology). A follow-up chest CT examination in 6-12 months is recommended
10. Moderate anasarca.
11. Moderate to severe paraspinal and pelvic muscle atrophy.
12. Severe discogenic degenerative disease at L4/L5 and L5/S1.
[2024-06-03] MEDS: PACERONE 200 MG PO (10:42)
--- NOTE | 2024-06-03 11:40 | PTCARENOTE ---
Assumed care of patient at beginning of this shift from previous RN; cannot verify accuracy of vital signs prior to 0700. BPs running soft with low MAPs: 80s/40s-100/48 with MAPs 50s-60s. Both Dr Ngo and Dr Zimmerman made aware; bp at that time was
86/47 with MAP 61. Patient was due for amiodarone. Med given as per Dr Zimmerman. Currently BP 117/60 with MAP 78. Patient recorded as oliguric; however daughter states patient does not void.
Scheduled for temp HD cath insertion tomorrow with HD to follow.
Patient incontinent of small amount soft black stool. Wound care done when cleaning and turning.
Ordered IVAB this morning by Dr Glass: Cefidercocl 750mg which was started at 10:21 using new tubing after confirming line was good to use. Per Pharmacist Anaid, med to be administered using it's own tubing and must run separate from any other
medication as it is not compatible.
This nurse then received call from ID pharmacist Cassandra to discontinue medication as another antibiotic will be ordered. Med taken down. Await new orders. Patient updated.
--- NOTE | 2024-06-03 11:57 | PTCARENOTE ---
Patient ordered Avycaz and Azactam to be given over 3hrs at 13:00. This nurse confirmed with pharmacist Cassandra that they can be administered through the same line at [facility].
--- NOTE | 2024-06-03 13:54 | W.PN.HOSP.TC ---
Today's Communication/Plan
-
Assessment / Plan
Assessment / Plan
General: Well Developed, Well Nourished, No Apparent Distress, Comfortable and Conversant
HEENT: NormoCephalic, Moist mucous membranes, Atraumatic
Respiratory: Clear and Non Labored Respirations
Cardiac: S1/S2 and Regular Rhythm; No Murmur, Rub or Gallop
GI: Soft, Non Tender, Non Distended and Normal Bowel Sounds
Musculoskeletal: left thigh wound
Skin: Warm a
Neuro: Awake, AO x 3 and Nonfocal/grossly intact
Psych: Calm and Intact Judgment/Insight
Assessment:
Enterobacter bacteremia/GNR - Panresistant
-Continue ivatb, start aztreonam and ceftazidime/avibactam per ID
-Repeat bcx, no growth to date, repeat till greater than 48 hours neg
-unsure of source, will plan to remove RACWPC, tip culture
---follow up tip culture, ngtd
-ID following
ongoing Hypotension, multifactorial.
- Asymptomatic
- Hypoalbuminemia, start Ensure TID
- Without evidnece of active GI bleed, Hgb stable
- AM cortisol normal
- Echo with normal EF, no significant valve pathology
Anemia with heme + stool; likely Could be exacerbated by Eliquis
Hgb most recently 8.1. s/p 2 unit PRBCs this hospitalization
Heme positive stool
frequent loose stools with recent C. Diff history
GI following; d/w daughter and holding off EGD/Colonoscopy at this time
Eliquis remains held
continue Protonix BID
Norovirus negative, C. difficile toxin negative however antigen positive
Prolonged recent hospitalization at [facility]. Requested records. Recently moved to [facility]
Per daughter it appeared that patient had septic shock there secondary to left groin abscess. then later developed renal failure, Cdiff, also had pneumonia. CXR here with 'pneumonia' likely residual, no active symptoms. Not on Abx.
Chronic hypoxic respiratory insufficiency suspect related to chronic hospitalization, deconditioning
- wean O2 as able.
ESRD on HD
HD schedule
appears to be making urine as ED RN cathed her for 1100cc urine, cloudy
Nephrology following
continue midodrine - increased to 20mg TID on 05/28 by Nephrology
-Plan for temp HD line per Neph
acute urinary retention
Asymptomatic bacteruria
- s/p Griffiths
- no indication for Abx per ID for urine culture growing Klebsiella
parox a-fib
continue amiodarone
Eliquis remains held as Hb stabilizes
herpes zoster
rash under left breast that round to left back, some appear to be getting better
continue valacyclovir x 10 days per ID; precautions
hyperlipidemia
continue rosuvastatin
Hx c-diff colitis
continue PO Vanco
continue probiotics
osteoarthritis
Chronic wounds
- L anterior upper thigh full thickness wound to subcutaneous layer, pink that can be visualized, undermines medially about 3cm, mod-large amount of murky serous drainage. Skin mild red around wound suspect r/t moisture.
- L medial upper thigh with a linear dermal ulcer suspect from rubbing and previous diaper use.
- Sacral crease stage 2 pressure injury along with MASD
- bilateral sacral buttocks stage 2 pressure injuries along with MASD.
- Perineal MASD.
- L medial posterior thigh linear red ecchymotic area.
- Small abrasions on R posterior ankle/calf. Heels slow to libby red/boggy.
- L anterior, lateral and posterior chest/back with scattered zoster lesions.
- follow wound care recs
Code status: DNR
DVT Prophylaxis: heparin
Anticipated Discharge: > 48 hours
Subjective/Interval History
-
Date of Service: June 03, 2024
seen and examined
no new complaints
no acute overnight events
Objective Data
-
Labs:
Laboratory Results
06/03/24
03:47
WBC 3.1 L
Hgb 8.6 L
Hct 27.8 L
Plt Count 127 L
Sodium 138
Potassium 4.2
Chloride 104
Carbon Dioxide 32 H
BUN 19 H
Creatinine 1.9 H
Glucose 84
Calcium 8.5
Vital Signs:
Vital Signs
Temp Pulse Resp BP Pulse Ox
98.1 F 81 19 102/53 97
06/03/24 11:28 06/03/24 11:00 06/03/24 11:00 06/03/24 12:15 06/03/24 10:20
I&O
06/02/24 06/03/24 06/04/24
06:59 06:59 06:59
Intake Total 120 / 120 534.51 / 534.51
Balance 120 / 120 534.51 / 534.51
[2024-06-03] MEDS: AZACTAM 110 MG IV (14:00)
[2024-06-03] MEDS: [UNRECOGNIZED DRUG - OTHER] 54.512 MG IV (14:05)
--- NOTE | 2024-06-03 14:48 | CM ---
Chart reviewed: Per PT, patient needs assist of 2; SNF is recommended for post acute care
Plan: Return to [facility] when medically stable. [facility] accepted referral
--- NOTE | 2024-06-03 16:40 | PTCARENOTE ---
POx 97-99% on 1L n/c. Attempted RA but O2 sat dropped to 87-88%; placed back on 1L n/c.
--- NOTE | 2024-06-03 23:52 | PTCARENOTE ---
This RN transported pt to CT scan per MD order. Pt tolerated scan without incident. This RN was reviewing result and noted 'moderately distended bladder' listed, which prompted this RN to bladder scan pt for >1000mL. [employer] contacted via TT and
ordered st cath. This RN st cathed pt for 1100mL. Pt tolerated, states that she was unable to feel distention and therefore does not feel 'relief', but relays gratitude to staff. Wounds changed per MD orders. Inc care provided. Pt with soft brown
BM. Call cruz within reach. Repositioning provided to prevent further skin breakdown.
[2024-06-04] VITALS (47 sets, daily range): BP systolic 72–124; BP diastolic 39–84; PULSE 77; O2SAT 98
[2024-06-04] MEDS: ProAmatine 20 MG PO ×3 (04:16→21:46)
[2024-06-04 04:53] LABS: Hematocrit 28.6 % (37.0-47.0); Hemoglobin 8.6 g/dL (12.0-16.0); Mean Corp Hgb Conc. 30.1 g/dL (33.0-37.0); Mean Corpuscular Hgb 29.4 pg (27.0-31.0); Mean Corpuscular Volume 97.6 fL (81.0-99.0); Mean Platelet Volume 9.3 fL (7.4-10.4); Platelet Count 134 10^3/uL (130-400); Red Blood Cell Count 2.93 10^6/uL (4.20-5.40); Red Cell Dist. Width 22.7 % (11.5-14.5); White Blood Cell Count 3.1 10^3/uL (4.8-10.8)
[2024-06-04] MEDS: SYMBICORT 160/4.5 MCG INHALER 2 PUFF INH ×2 (07:18→20:00)
[2024-06-04] MEDS: PROTONIX IV 40 MG IV ×2 (08:21→21:47)
[2024-06-04] MEDS: NEURONTIN 100 MG PO (08:22)
[2024-06-04] MEDS: VISBIOME 2 CAP PO (08:22)
[2024-06-04] MEDS: PACERONE 200 MG PO (08:22)
[2024-06-04] MEDS: FOLVITE 1 MG PO (08:22)
[2024-06-04] MEDS: CRESTOR 5 MG PO (08:22)
[2024-06-04] MEDS: NSS (PRESERVATIVE FREE) 10 ML IV ×2 (08:22→21:48)
[2024-06-04] MEDS: SINGULAIR 10 MG PO (08:22)
[2024-06-04] MEDS: DEBROX EAR DROPS 1 DROP OTIC ×2 (08:23→21:48)
[2024-06-04] MEDS: DAKIN'S SOLUTION 0.125% 1/4 STRENGTH TOPICAL (08:23)
[2024-06-04] MEDS: DESENEX/MITRAZOL/ZEASORB 1 APPLIC TOPICAL ×2 (08:23→21:16)
[2024-06-04] MEDS: FIRVANQ 125 MG PO ×2 (08:24→21:47)
[2024-06-04] MEDS: HEPARIN 5000 UNITS SC ×2 (08:24→21:48)
[2024-06-04] MEDS: ZINC OXIDE OINTMENT TOPICAL ×2 (08:25→16:05)
--- NOTE | 2024-06-04 09:44 | W.PN.ID1 ---
Date of Service
Date of Service: June 04, 2024
Today's Communication
- had >1L of urine in her bladder yesterday with no sense of urgency, scheduled bladder scans
c/w aztreonam and avibactam - requesting assistance from [facility] regional lab with sensitivities
added micafungin for extensive intertrigo not responding to topical therapy
extensive chart review
Assessment / Plan
CRE - Enterobacter (MDRO)
Suspected HD cath source
Asymptomatic Klebsiella Bacteriuria
Hypotension - persists
Treated Pneumonia with resolving infiltrates
H/o asthma
Colonization with C difficile
Shingles below L breast - resolved, healing wound
ESRD on HD - line holiday
Reported allergy to cephalexin (unknown)
Replaced L hip
- had >1L of urine in her bladder yesterday with no sense of urgency, scheduled bladder scans
- 05/29 blood cultures x2 enterobacter - CRE with resistance to avycaz and eravacycline
- switch to ceftazidime-avibactam plus aztreonam; meropenem-vaborbactam in house as alternative if needed. 2023 IDSA guidelines citing upwards of 80% of isolates resistant to ceftaz-shaylee also showing resistance with cefideracol.
- sensitivities to cefiderocol, meropenem-vaborbactam and polymyxin requested; combination of aztreonam and avibactam sensitivities may be obtainable through [facility] (though not commercially) request sent to [facility] antimicrobial resistance regional lab
- 05/31 Repeat blood cx's x 2 (before meropenem) - no growth to date
- HD cath removed 06/01 - cath tip culture sensitivity very low, approximately 20%; most likely source
- CT proximal left leg: stranding; appears to be extension of intertrigo, less likely cellulitis, no abscess
- inflammation is serpiginous involves both the left and right proximal leg as well as mons area; surgical site with minimal packing - granulation tissue, no odor
- has been on topical therapy, given long duration and extent, I have added micafungin
- pneumonia thought to be less likely source given lack of suggestive symptoms patient with a recent diagnosis of pneumonia at [facility] (possibly a resolving infiltrate)
- shingles on back healed, under the breast some crusting, some open lesions; without evidence of suprainfection
- ok for temp HD cath
- continue oral vanc BID given known colonization with c diff while on broad spectrum rx
- continue enhanced contact precautions for C difficile while in house; also plan to continue precautions given CRE
- completed course of valtrex - stopped
- follow clinically
Total time spent today was 73 minutes for this encounter.� Time included reviewing laboratory tests/imaging results, reviewing extensive medical records (>80 pages), obtaining and reviewing medical history, performing an appropriate exam, ordering
medications, tests and procedures. �Time also included coordinating patient care and communicating with other health life care planner.�
Chief Complaint
-: Bacteremia (due to MDRO) and Other (sepsis, asymptomatic bacteruria)
Subjective / Review of Systems
afebrile
bps improving
urinary retention of >1L yesterday
reviewed records from [facility] 87 pages
saw pCP 04/14 cough - dx pneumonia started levaquin and hycodan; 04/19 ED [facility], COVID positve, cr 7.7 - acute on chronic renal failure; compliacted by afib with RVR, required bipap, 04/20 found to have abscess in L groin, initially treated with
vancomycin (04/20-04/22) and cefepime (04/20-04/21) and flagyl (04/20-04/21), taken to the OR for I&D same day, had drain in placed through 05/04 (discharge), 04/21-04/23 zosyn, 04/23 (unasyn) blood cultures were finalized negative at 5 days, then augmentin
to complete 10 day course, course complicated by C diff diarrhea 05/07 treated with oral vanc x 10 days
OR note 04/20: I&D of left thigh abscess 10 cm x20 cm: debridement of L thigh 5x5 cm; fluid collection was initially 2.3 x 6.4 cm; wound culture gram stain many gpcs, rare GNR; culture very rare group B beta hemolytic strep, many mixed anaerobic
saira (3+ colony types); abscess in the soft tissues above the fascia; sharp debridement of devitalized tissue also done; space tracked distally and appeared viable with overlying cellulitis, distal counter incision maked and half inch ilene
passed through and secured to itself
TTE: normal EF
Intertrigo noted there 04/20
a1c 5.4
hydropic gallbladder noted on ct there 04/20: however normal appearing on ct here 05/29
HD cath placed 05/01 - uncomplicated
Vital Signs / Physical Exam
Vital Signs
Vital Signs
Temp Pulse Resp BP Pulse Ox
98.1 F 73 24 105/55 98
06/04/24 07:34 06/04/24 08:22 06/04/24 08:00 06/04/24 08:22 06/04/24 07:20
Physical Exam
Constitutional: No Acute Distress
Cardiovascular: Regular Rate and S1/S2; Negative Murmur or Rub
Pulmonary: Clear and Symmetric; Negative Wheezes or Rales
Gastrointestinal: Soft, Non Tender, Non Distended and Normal Bowel Sounds
Skin: Warm, Dry and Other (inflammation is serpiginous involves both the left and right proximal leg as well as mons area; surgical site with minimal packing - granulation tissue, no odor); Negative Jaundice
Wound: Other (surgical sites distal fully healed, proximal site L leg - clean, granulation tissue in the base)
Neurological: AO x 3
Objective Data
Lab Data
Lab Results
06/04/24 04:23
Estimated Creat Clear 27 ml/min 06/03/24 03:47
Total Bilirubin 0.5 mg/dl (0.2-1.3) 05/26/24 16:18
AST 22 U/L (14-36) 05/26/24 16:18
ALT 26 U/L (0-35) 05/26/24 16:18
Alkaline Phosphatase 99 U/L (38-126) 05/26/24 16:18
Most recent labs reviewed.
Micro Results:
05/31/24 06:08 Blood Culture - Preliminary
Blood/Venous No Growth in 4 days- Final report to follow
05/31/24 06:08 Blood Culture - Preliminary
Blood/Venous No Growth in 4 days- Final report to follow
06/01/24 04:09 Blood Culture - Preliminary
Blood/Venous No Growth in 72 hours- Final report to follow
06/01/24 04:09 Blood Culture - Preliminary
Blood/Venous No Growth in 72 hours- Final report to follow
06/01/24 14:45 Catheter Tip Culture - Preliminary
Dialysis Line No Growth After 48 Hours
05/29/24 12:11 Blood Culture - Preliminary
Blood/Venous Enterobacter cloacae
Enterobacter cloacae#2
Gram Stain - Preliminary
05/29/24 12:43 Blood Culture - Preliminary
Blood/Venous Enterobacter species
Gram Stain - Preliminary
05/26/24 17:24 Salmonella/Shigella Culture - Final
Feces/Stool No Salmonella, Shigella, Aeromonas or Plesiomonas species
isolated.
Campylobacter Culture - Final
No Campylobacter species isolated.
Shiga Toxin Test - Final
No E. coli Shiga Toxin 1 or 2 detected.
05/26/24 17:24 Urine Culture - Final
Urine Klebsiella pneumoniae
05/26/24 23:43 MRSA Screen - Final
Nose Staph aureus MRSA
05/26/24 17:24 C. difficile GDH Antigen & Toxins - Final
Feces/Stool C. difficile antigen positive, toxin negative.
Clostridium difficile present, but toxin not detected.
Patient may be a carrier, colonized with nontoxinogenic
strain or the level of toxin in sample is below detection
limits. This information should be used in conjunction with
the patient's clinical history.
- Final
Negative for Norovirus GI and GII.
05/29/24 CT a/P:
1. No CT evidence for acute retroperitoneal or intraperitoneal hemorrhage.
2. Moderate to severe bilateral renal cortical volume loss and severe scarring in the lateral cortex of the left kidney consistent with END-STAGE RENAL DISEASE.
3. Severe calcific atherosclerotic plaque in the abdominal aorta and common iliac arteries.
4. Mild splenomegaly.
5. Severe diverticulosis in the sigmoid colon.
6. Small bilateral pleural effusions with adjacent bilateral lower lobe airspace consolidation (possibly right lower lobe pneumonia).
7. Severe calcific atherosclerotic plaque in the coronary arteries and thoracic aorta.
8. Mild cardiomegaly.
9. 6.8 mm pulmonary nodule in the lateral segment of the right middle lobe (possibly infectious or inflammatory in etiology). A follow-up chest CT examination in 6-12 months is recommended
10. Moderate anasarca.
11. Moderate to severe paraspinal and pelvic muscle atrophy.
12. Severe discogenic degenerative disease at L4/L5 and L5/S1.
--- NOTE | 2024-06-04 10:06 | WOUNDNOTE ---
L THIGH (UPPER ANTERIOR)
--- NOTE | 2024-06-04 10:07 | WOUNDNOTE ---
L CHEST (ANTERIOR UNDER BREAST)
--- NOTE | 2024-06-04 10:08 | WOUNDNOTE ---
THIGHS (UPPER POSTERIOR)(with photo flash)
--- NOTE | 2024-06-04 10:09 | WOUNDNOTE ---
BUTTOCKS/SACRAL/COCCYX
--- NOTE | 2024-06-04 10:09 | WOUNDNOTE ---
BACK (MID LEFT)
--- NOTE | 2024-06-04 10:09 | WOUNDNOTE ---
L THIGH (ANTERIOR UPPER)
--- NOTE | 2024-06-04 10:23 | WOUNDNOTE ---
WO RN note: Patient seen as Maurice PT and PT assist Francisco working with patient. Patient's back and chest lesions improved, smaller, water filter cleaner. Sacral/buttocks/thigh wounds water filter cleaner than last week, surrounding redness remains. Miconazole powder and
Calazime being used. Patient incontinent of loose dark brown stool. Fariba care given with help from JOHANNE Flores. Heels blanchable red. Patient assists with turning. Patient is on a [facility] air bed. Patient edema has improved. Patient has an air
chair cushion. Sacral, back/chest, L thigh dressings changed. L anterior upper thigh wound smaller in size but tunnels medially approximately 4cm, wound appearance granular with less murky drainage, mostly serous drainage. CT scan was negative for
abscess. L thigh wound care appropriate. Will follow as needed.
[2024-06-04] MEDS: ZINC OXIDE OINTMENT 1 APPLIC TOPICAL ×2 (10:30→21:17)
[2024-06-04] MEDS: DAKIN'S SOLUTION 0.125% 1/4 STRENGTH 50 ML TOPICAL (10:30)
[2024-06-04] MEDS: MYCAMINE 105 MG IV (12:32)
--- NOTE | 2024-06-04 14:32 | W.PN.NEPH.HD ---
Assessment
-
Patient seen on dialysis
Systolic blood pressure 115 following 20 mg of midodrine administration around noon
Will provide second dose of midodrine if warranted
UF to 1.5 kg as weights continue to rise
Patient now with temporary dialysis catheter in setting of resistant bacteremia CRE
HD again tomorrow to keep on schedule
Will intermittently bladder scan given occasional high bladder volumes with no urge to urinate
Progress Note - Hemodialysis
-
Date of Service: June 04, 2024
Duration: 30 minutes
Potassium Bath: 3
Calcium Bath: 2.5
Ultrafiltration: Other (Attempting for 1.5 kg)
Blood Flow: 400
Dialysate Flow: 600
Heparin: None
EPO: 10,000
[2024-06-04] MEDS: FLEXBUMIN 25% FOR HEMODIALYSIS 12.5 GRAMS IV ×2 (14:57→16:18)
[2024-06-04] MEDS: RETACRIT 10000 UNITS IV (14:58)
[2024-06-04 15:23] LABS: Blood Urea Nitrogen 22 mg/dl (7-17); Calcium 8.2 mg/dl (8.4-10.2); Carbon Dioxide 30 mmol/L (22-30); Chloride 102 mmol/L (98-107); Estimated Creatinine Clearance 30 ml/min; Glucose 75 mg/dl (70-99); Potassium 3.6 mmol/L (3.5-5.1); Sodium 137 mmol/L (135-145); eGFR 31.66
[2024-06-04] MEDS: ProAmatine 10 MG PO (16:05)
[2024-06-04] MEDS: DESENEX/MITRAZOL/ZEASORB TOPICAL (16:05)
--- NOTE | 2024-06-04 16:25 | W.PN.HOSP.TC ---
Today's Communication/Plan
-
Assessment / Plan
Assessment / Plan
General: Well Developed, Well Nourished, No Apparent Distress, Comfortable and Conversant
HEENT: NormoCephalic, Moist mucous membranes, Atraumatic
Respiratory: Clear and Non Labored Respirations
Cardiac: S1/S2 and Regular Rhythm; No Murmur, Rub or Gallop
GI: Soft, Non Tender, Non Distended and Normal Bowel Sounds
Musculoskeletal: left thigh wound
Skin: Warm a
Neuro: Awake, AO x 3 and Nonfocal/grossly intact
Psych: Calm and Intact Judgment/Insight
Assessment:
Enterobacter bacteremia/GNR - Panresistant
-Continue ivatb, start aztreonam and ceftazidime/avibactam per ID
-Repeat bcx, no growth to date, repeat till greater than 48 hours neg
-unsure of source, will plan to remove RACWPC, tip culture
---follow up tip culture, ngtd
-ID following
ongoing Hypotension, multifactorial.
- Asymptomatic
- Hypoalbuminemia, start Ensure TID
- Without evidnece of active GI bleed, Hgb stable
- AM cortisol normal
- Echo with normal EF, no significant valve pathology
Anemia with heme + stool; likely Could be exacerbated by Eliquis
Hgb most recently 8.1. s/p 2 unit PRBCs this hospitalization
Heme positive stool
frequent loose stools with recent C. Diff history
GI following; d/w daughter and holding off EGD/Colonoscopy at this time
Eliquis remains held
continue Protonix BID
Norovirus negative, C. difficile toxin negative however antigen positive
Prolonged recent hospitalization at [facility]. Requested records. Recently moved to [facility]
Per daughter it appeared that patient had septic shock there secondary to left groin abscess. then later developed renal failure, Cdiff, also had pneumonia. CXR here with 'pneumonia' likely residual, no active symptoms. Not on Abx.
Chronic hypoxic respiratory insufficiency suspect related to chronic hospitalization, deconditioning
- wean O2 as able.
ESRD on HD
HD schedule
appears to be making urine as ED RN cathed her for 1100cc urine, cloudy
Nephrology following
continue midodrine - increased to 20mg TID on 05/28 by Nephrology
-Plan for temp HD line per Neph
acute urinary retention
Asymptomatic bacteruria
- s/p Griffiths
- no indication for Abx per ID for urine culture growing Klebsiella
parox a-fib
continue amiodarone
Eliquis remains held as Hb stabilizes
herpes zoster
rash under left breast that round to left back, some appear to be getting better
continue valacyclovir x 10 days per ID; precautions
hyperlipidemia
continue rosuvastatin
Hx c-diff colitis
continue PO Vanco
continue probiotics
osteoarthritis
Chronic wounds
- L anterior upper thigh full thickness wound to subcutaneous layer, pink that can be visualized, undermines medially about 3cm, mod-large amount of murky serous drainage. Skin mild red around wound suspect r/t moisture.
- L medial upper thigh with a linear dermal ulcer suspect from rubbing and previous diaper use.
- Sacral crease stage 2 pressure injury along with MASD
- bilateral sacral buttocks stage 2 pressure injuries along with MASD.
- Perineal MASD.
- L medial posterior thigh linear red ecchymotic area.
- Small abrasions on R posterior ankle/calf. Heels slow to libby red/boggy.
- L anterior, lateral and posterior chest/back with scattered zoster lesions.
- follow wound care recs
Code status: DNR
DVT Prophylaxis: heparin
Anticipated Discharge: > 48 hours
Subjective/Interval History
-
Date of Service: June 04, 2024
seen and exaind
no new comaplitns
no acute ovenright events
in good spirits
Objective Data
-
Labs:
Laboratory Results
06/04/24 06/04/24
04:23 14:49
WBC 3.1 L
Hgb 8.6 L
Hct 28.6 L
Plt Count 134
Sodium 137
Potassium 3.6
Chloride 102
Carbon Dioxide 30
BUN 22 H
Creatinine 1.7 H
Glucose 75
Calcium 8.2 L
Vital Signs:
Vital Signs
Temp Pulse Resp BP Pulse Ox
98.0 F 70 22 112/58 99
06/04/24 15:14 06/04/24 16:15 06/04/24 16:15 06/04/24 16:15 06/04/24 15:43
I&O
06/03/24 06/04/24 06/05/24
06:59 06:59 06:59
Intake Total 534.51 / 534.51 640 / 640
Output Total 1100 / 1100
Balance 534.51 / 534.51 -460 / -460
[2024-06-04] MEDS: AZACTAM 110 MG IV (17:23)
[2024-06-04] MEDS: [UNRECOGNIZED DRUG - OTHER] 54.512 MG IV (17:24)
[2024-06-04] MEDS: HEPARIN 2000 UNITS INTRACATH (17:50)
[2024-06-05] VITALS (51 sets, daily range): BP systolic 86–119; BP diastolic 39–100; BMI 33.3
--- NOTE | 2024-06-05 03:47 | PTCARENOTE ---
Received pt from day shift RN. Pt aaox3 and pleasant. NSR on monitor. 96% on 2L NC. Wound care and hygiene completed (see worklist). Pt refused oral care despite education on importance. Pt resting in bed with call cruz in reach.
[2024-06-05] MEDS: ProAmatine 20 MG PO ×3 (05:46→21:53)
[2024-06-05] MEDS: NEURONTIN 100 MG PO (07:23)
[2024-06-05] MEDS: SINGULAIR 10 MG PO (07:23)
[2024-06-05] MEDS: CRESTOR 5 MG PO (07:23)
[2024-06-05] MEDS: FOLVITE 1 MG PO (07:23)
[2024-06-05] MEDS: HEPARIN 5000 UNITS SC ×2 (07:23→21:55)
[2024-06-05] MEDS: VISBIOME 2 CAP PO (07:23)
[2024-06-05] MEDS: FIRVANQ 125 MG PO ×2 (07:23→21:56)
[2024-06-05] MEDS: PROTONIX IV 40 MG IV ×2 (07:24→21:56)
[2024-06-05] MEDS: DESENEX/MITRAZOL/ZEASORB 1 APPLIC TOPICAL ×3 (07:24→20:17)
[2024-06-05] MEDS: NSS (PRESERVATIVE FREE) 10 ML IV ×2 (07:24→21:56)
[2024-06-05] MEDS: DAKIN'S SOLUTION 0.125% 1/4 STRENGTH TOPICAL (07:25)
[2024-06-05] MEDS: DEBROX EAR DROPS 1 DROP OTIC ×2 (07:25→21:52)
[2024-06-05] MEDS: PACERONE 200 MG PO (07:27)
[2024-06-05] MEDS: ZINC OXIDE OINTMENT 1 APPLIC TOPICAL ×3 (07:28→20:18)
[2024-06-05] MEDS: SYMBICORT 160/4.5 MCG INHALER 2 PUFF INH ×2 (07:51→21:09)
--- NOTE | 2024-06-05 09:01 | W.PN.ID1 ---
Date of Service
Date of Service: June 05, 2024
Today's Communication
c/w ceftazidime-avibactam and aztreonam for CRE
marked improvement with micafungin for intertrigo - will continue for present
oral vanc C difficile prophylaxis
pleased to see improvement in BP
Assessment / Plan
CRE - Enterobacter (MDRO)
Suspected HD cath source
Hypotension - possibly improving
Shingles below L breast - resolved, healing wound under the breast
ESRD on HD
Reported allergy to cephalexin (unknown)
Replaced L hip
- 05/29 blood cultures x2 enterobacter - CRE with resistance to avycaz and eravacycline
- c/w to ceftazidime-avibactam plus aztreonam
- sensitivities to ceftazidime-avibactam to be sent out will be shipped saturday due to closures of the receiving lab over the weekend (coordinating with [facility] and lift slab operator Derek), sensitivities for cefiderocol, meropenem-vaborbactam and polymyxin
already sent out
- 05/31 Repeat blood cx's x 2 (before meropenem) - no growth to date
- HD cath removed 06/01 - cath tip culture sensitivity very low, approximately 20%; most likely source despite a negative culture
Intertrigo
- markedly improved appearance
- c/w micafungin day 2
Colonization with C Difficile
- continue oral vanc BID given known colonization with c diff while on broad spectrum rx
- continue enhanced contact precautions for C difficile while in house; also plan to continue precautions given CRE
- completed course of valtrex - stopped
- follow clinically
Chief Complaint
-: Bacteremia (due to MDRO) and Other (sepsis, asymptomatic bacteruria)
Subjective / Review of Systems
afebrile
bp stable running consistently higher - remains on midodrine
no events overnight
for HD today
had 300 ccs on bladder scan this am
Vital Signs / Physical Exam
Vital Signs
Vital Signs
Temp Pulse Resp BP Pulse Ox
98.0 F 71 16 112/56 95
06/04/24 15:14 06/05/24 07:55 06/05/24 07:55 06/05/24 07:27 06/05/24 08:25
Physical Exam
Constitutional: No Acute Distress, Chronically Ill and Obese
Cardiovascular: Regular Rate and S1/S2; Negative Murmur or Rub
Pulmonary: Clear and Symmetric; Negative Wheezes or Rales
Gastrointestinal: Soft, Non Tender, Non Distended and Normal Bowel Sounds
Skin: Warm, Dry and Rash (redness on the bilateral groins and mons area markedly improved today); Negative Jaundice
Wound: Other (clean, granulation tissue in the base, no odor, no drainage, packed)
Objective Data
Lab Data
Lab Results
06/04/24 04:23
06/04/24 14:49
Estimated Creat Clear 30 ml/min 06/04/24 14:49
Total Bilirubin 0.5 mg/dl (0.2-1.3) 05/26/24 16:18
AST 22 U/L (14-36) 05/26/24 16:18
ALT 26 U/L (0-35) 05/26/24 16:18
Alkaline Phosphatase 99 U/L (38-126) 05/26/24 16:18
Most recent labs reviewed.
Micro Results:
05/31/24 06:08 Blood Culture - Final
Blood/Venous No Growth - Final Report
05/31/24 06:08 Blood Culture - Final
Blood/Venous No Growth - Final Report
06/01/24 04:09 Blood Culture - Preliminary
Blood/Venous No Growth in 4 days- Final report to follow
06/01/24 04:09 Blood Culture - Preliminary
Blood/Venous No Growth in 4 days- Final report to follow
06/01/24 14:45 Catheter Tip Culture - Final
Dialysis Line No Growth After 72 Hours
05/29/24 12:11 Blood Culture - Preliminary
Blood/Venous Enterobacter cloacae
Enterobacter cloacae#2
Gram Stain - Preliminary
05/29/24 12:43 Blood Culture - Preliminary
Blood/Venous Enterobacter species
Gram Stain - Preliminary
05/26/24 17:24 Salmonella/Shigella Culture - Final
Feces/Stool No Salmonella, Shigella, Aeromonas or Plesiomonas species
isolated.
Campylobacter Culture - Final
No Campylobacter species isolated.
Shiga Toxin Test - Final
No E. coli Shiga Toxin 1 or 2 detected.
05/26/24 17:24 Urine Culture - Final
Urine Klebsiella pneumoniae
05/26/24 23:43 MRSA Screen - Final
Nose Staph aureus MRSA
05/26/24 17:24 C. difficile GDH Antigen & Toxins - Final
Feces/Stool C. difficile antigen positive, toxin negative.
Clostridium difficile present, but toxin not detected.
Patient may be a carrier, colonized with nontoxinogenic
strain or the level of toxin in sample is below detection
limits. This information should be used in conjunction with
the patient's clinical history.
- Final
Negative for Norovirus GI and GII.
05/29/24 CT a/P:
1. No CT evidence for acute retroperitoneal or intraperitoneal hemorrhage.
2. Moderate to severe bilateral renal cortical volume loss and severe scarring in the lateral cortex of the left kidney consistent with END-STAGE RENAL DISEASE.
3. Severe calcific atherosclerotic plaque in the abdominal aorta and common iliac arteries.
4. Mild splenomegaly.
5. Severe diverticulosis in the sigmoid colon.
6. Small bilateral pleural effusions with adjacent bilateral lower lobe airspace consolidation (possibly right lower lobe pneumonia).
7. Severe calcific atherosclerotic plaque in the coronary arteries and thoracic aorta.
8. Mild cardiomegaly.
9. 6.8 mm pulmonary nodule in the lateral segment of the right middle lobe (possibly infectious or inflammatory in etiology). A follow-up chest CT examination in 6-12 months is recommended
10. Moderate anasarca.
11. Moderate to severe paraspinal and pelvic muscle atrophy.
12. Severe discogenic degenerative disease at L4/L5 and L5/S1.
[2024-06-05] MEDS: MYCAMINE 105 MG IV (11:26)
--- NOTE | 2024-06-05 13:18 | W.PN.NEPH.PH ---
Today's Communication / Plan
-
Dialysis today
Assessment/Plan
-
Assessment
ESRD
Gram-negative bacilli bacteremia
Acute anemia
GI bleed
Hyperlipidemia
Hypotension on midodrine
Recent sepsis/C. difficile
Recent urinary retention
Plan
Check cortisol level : 19
checked echocardiogram: No LV dysfunction or profound valvular abnormalities
CT of abdomen reviewed no evidence of retroperitoneal bleed re: ongoing anemia
Gram-negative bacilli bacteremia =- blood cultures x2 enterobacter
- Repeat blood cx's x 2 (before meropenem) - no growth to date as of 05/31/2024
- HD cath removed 06/01
- progressive pancytopenia, switched to Cefidercocol
-Remains on oral vancomycin for colonizing
Patient with significant hypoalbuminemia of 2.2 affecting effective circulating volume and with subsequent hemodynamic instability
It has been 72+ hours negative cultures but patient continues with pancytopenia and has antibiotic resistance
After discussion with infectious disease we will continue with temporary dialysis catheter
Discussed with her daughter was at the bedside
Patient was seen on dialysis today blood pressure stable ultrafiltration 1.5 L as blood pressure tolerates
Orders reviewed
-
-
Date of Service: June 05, 2024
CC / HPI / ROS
-
Chief Complaint:
ESRD
History of Present Illness:
Remains hypotensive on midodrine 20mg q8
Continued antibiotic for Enterobacter bacteremia
ESRD on chronic Saturday
Review of Systems:
No chest pain or shortness of breath
No fevers
Labs
-
Labs:
WBC 3.1 10^3/uL (4.8-10.8) L 06/04/24 04:23
RBC 2.93 10^6/uL (4.20-5.40) L 06/04/24 04:23
Hgb 8.6 g/dL (12.0-16.0) L 06/04/24 04:23
Hct 28.6 % (37.0-47.0) L 06/04/24 04:23
Plt Count 134 10^3/uL (130-400) 06/04/24 04:23
Sodium 137 mmol/L (135-145) 06/04/24 14:49
Potassium 3.6 mmol/L (3.5-5.1) 06/04/24 14:49
Chloride 102 mmol/L (98-107) 06/04/24 14:49
Carbon Dioxide 30 mmol/L (22-30) 06/04/24 14:49
BUN 22 mg/dl (7-17) H 06/04/24 14:49
Creatinine 1.7 mg/dL (0.6-1.0) H 06/04/24 14:49
eGFR 31.66 06/04/24 14:49
Glucose 75 mg/dl (70-99) 06/04/24 14:49
Calcium 8.2 mg/dl (8.4-10.2) L 06/04/24 14:49
Albumin 2.2 g/dl (3.5-5.0) L 05/26/24 16:18
Physical Exam
-
Vital Signs:
Vital Signs
Temp Pulse Resp BP Pulse Ox
98.1 F 69 21 116/55 99
06/05/24 11:30 06/05/24 12:45 06/05/24 12:45 06/05/24 12:45 06/05/24 12:40
Cardiovascular:: Regular rate and rhythm
Respiratory:: Bilateral: Coarse
Lung Excursion:: Normal
Abdomen:: Nontender and Soft
Bowel Sounds:: Normal
Extremity Edema:: +1: Bilateral:
Griffiths Catheter: No
[2024-06-05 13:56] LABS: Hematocrit 26.3 % (37.0-47.0)
[2024-06-05 14:06] LABS: Carbon Dioxide 32 mmol/L (22-30); Chloride 102 mmol/L (98-107); Potassium 3.5 mmol/L (3.5-5.1); Sodium 136 mmol/L (135-145)
[2024-06-05] MEDS: ProAmatine 10 MG PO (14:37)
--- NOTE | 2024-06-05 14:53 | W.PN.HOSP.TC ---
Today's Communication/Plan
-
Assessment / Plan
Assessment / Plan
General: Well Developed, Well Nourished, No Apparent Distress, Comfortable and Conversant
HEENT: NormoCephalic, Moist mucous membranes, Atraumatic
Respiratory: Clear and Non Labored Respirations
Cardiac: S1/S2 and Regular Rhythm; No Murmur, Rub or Gallop
GI: Soft, Non Tender, Non Distended and Normal Bowel Sounds
Musculoskeletal: left thigh wound
Skin: Warm a
Neuro: Awake, AO x 3 and Nonfocal/grossly intact
Psych: Calm and Intact Judgment/Insight
Assessment:
Enterobacter bacteremia/GNR - Panresistant
-Continue ivatb, start aztreonam and ceftazidime/avibactam per ID
-Repeat bcx, no growth to date, repeat till greater than 48 hours neg
-unsure of source, will plan to remove RACWPC, tip culture
---follow up tip culture, ngtd
-ID following
Intertrigo
-Micafungin started by ID
ongoing Hypotension, multifactorial.
- Asymptomatic
- Hypoalbuminemia, start Ensure TID
- Without evidnece of active GI bleed, Hgb stable
- AM cortisol normal
- Echo with normal EF, no significant valve pathology
Anemia with heme + stool; likely Could be exacerbated by Eliquis
Hgb most recently 8.1. s/p 2 unit PRBCs this hospitalization
Heme positive stool
frequent loose stools with recent C. Diff history
GI following; d/w daughter and holding off EGD/Colonoscopy at this time
Eliquis remains held
continue Protonix BID
Norovirus negative, C. difficile toxin negative however antigen positive
Prolonged recent hospitalization at [facility]. Requested records. Recently moved to [facility]
Per daughter it appeared that patient had septic shock there secondary to left groin abscess. then later developed renal failure, Cdiff, also had pneumonia. CXR here with 'pneumonia' likely residual, no active symptoms. Not on Abx.
Chronic hypoxic respiratory insufficiency suspect related to chronic hospitalization, deconditioning
- wean O2 as able.
ESRD on HD
HD schedule --
appears to be making urine as ED RN cathed her for 1100cc urine, cloudy
Nephrology following
continue midodrine - increased to 20mg TID on 05/28 by Nephrology
-Plan for temp HD line per Neph
acute urinary retention
Asymptomatic bacteruria
- s/p Griffiths
- no indication for Abx per ID for urine culture growing Klebsiella
parox a-fib
continue amiodarone
Eliquis remains held as Hb stabilizes
herpes zoster
rash under left breast that round to left back, some appear to be getting better
continue valacyclovir x 10 days per ID; precautions
hyperlipidemia
continue rosuvastatin
Hx c-diff colitis
continue PO Vanco
continue probiotics
osteoarthritis
Chronic wounds
- L anterior upper thigh full thickness wound to subcutaneous layer, pink that can be visualized, undermines medially about 3cm, mod-large amount of murky serous drainage. Skin mild red around wound suspect r/t moisture.
- L medial upper thigh with a linear dermal ulcer suspect from rubbing and previous diaper use.
- Sacral crease stage 2 pressure injury along with MASD
- bilateral sacral buttocks stage 2 pressure injuries along with MASD.
- Perineal MASD.
- L medial posterior thigh linear red ecchymotic area.
- Small abrasions on R posterior ankle/calf. Heels slow to libby red/boggy.
- L anterior, lateral and posterior chest/back with scattered zoster lesions.
- follow wound care recs
Code status: DNR
DVT Prophylaxis: heparin
Anticipated Discharge: > 48 hours
Subjective/Interval History
-
Date of Service: June 05, 2024
Seen and examined. No new complaints. No acute overnight events.
Objective Data
-
Labs:
Laboratory Results
06/05/24
13:38
Hgb 8.0 L
Hct 26.3 L
Sodium 136
Potassium 3.5
Chloride 102
Carbon Dioxide 32 H
Vital Signs:
Vital Signs
Temp Pulse Resp BP Pulse Ox
98.1 F 71 21 92/48 99
06/05/24 11:30 06/05/24 14:37 06/05/24 14:00 06/05/24 14:37 06/05/24 12:40
I&O
06/04/24 06/05/24 06/06/24
06:59 06:59 06:59
Intake Total 640 / 640 644.7 / 644.7 105 / 105
Output Total 1100 / 1100 0 / 0
Balance -460 / -460 644.7 / 644.7 105 / 105
[2024-06-05] MEDS: MANNITOL 25% 12.5 GRAMS IV (15:23)
[2024-06-05] MEDS: HEPARIN 2000 UNITS INTRACATH (16:24)
--- NOTE | 2024-06-05 16:52 | CM ---
Patient from [facility] with Hx ESRD on HD, chronic wounds. Enhanced Precautions for C difficile. Receiving IV Abx. Seen by wound care nurse. PT/OT recommend skilled rehab.
Plan return to [facility] when medically ready and insurance approves.
[2024-06-05] MEDS: AZACTAM 110 MG IV (17:53)
[2024-06-05] MEDS: [UNRECOGNIZED DRUG - OTHER] 54.512 MG IV (17:54)
[2024-06-06] VITALS (24 sets, daily range): BP systolic 89–138; BP diastolic 39–124; BMI 32.9
--- NOTE | 2024-06-06 02:51 | PTCARENOTE ---
Received pt from day shift RN. Pt nonverbal. hygiene completed and scheduled medications administered. Pt resting in bed with bed alarm on.
--- NOTE | 2024-06-06 02:53 | PTCARENOTE ---
Received pt from day shift RN. Pt aaox3. NSR on monitor. 98% on 2L NC. Wound care and hygiene completed (see worklist). Pt refused oral care despite continued education on importance. Turned pt every two hours. Pt resting in bed with call cruz in
reach.
[2024-06-06] MEDS: ProAmatine 20 MG PO ×3 (05:32→21:11)
[2024-06-06] MEDS: PACERONE 200 MG PO (07:32)
[2024-06-06] MEDS: VISBIOME 2 CAP PO (07:32)
[2024-06-06] MEDS: CRESTOR 5 MG PO (07:32)
[2024-06-06] MEDS: SINGULAIR 10 MG PO (07:32)
[2024-06-06] MEDS: FIRVANQ 125 MG PO ×2 (07:32→21:10)
[2024-06-06] MEDS: NEURONTIN 100 MG PO (07:32)
[2024-06-06] MEDS: FOLVITE 1 MG PO (07:32)
[2024-06-06] MEDS: NSS (PRESERVATIVE FREE) 10 ML IV ×2 (07:33→21:12)
[2024-06-06] MEDS: PROTONIX IV 40 MG IV ×2 (07:33→21:12)
[2024-06-06] MEDS: HEPARIN 5000 UNITS SC ×2 (07:33→21:12)
[2024-06-06] MEDS: DEBROX EAR DROPS 1 DROP OTIC ×2 (07:33→21:09)
[2024-06-06] MEDS: DESENEX/MITRAZOL/ZEASORB 1 APPLIC TOPICAL ×3 (07:34→21:14)
[2024-06-06] MEDS: DAKIN'S SOLUTION 0.125% 1/4 STRENGTH 473 ML TOPICAL (07:34)
[2024-06-06] MEDS: ZINC OXIDE OINTMENT 1 APPLIC TOPICAL ×3 (07:35→21:14)
[2024-06-06] MEDS: SYMBICORT 160/4.5 MCG INHALER 2 PUFF INH ×2 (07:57→19:19)
--- NOTE | 2024-06-06 09:47 | W.PN.NEPH.PH ---
Today's Communication / Plan
-
Dialysis Saturday
Assessment/Plan
-
Assessment
ESRD/MWF
Gram-negative bacilli bacteremia
Acute anemia
GI bleed
Hyperlipidemia
Hypotension on midodrine
Recent sepsis/C. difficile
Recent urinary retention
Plan
Check cortisol level : 19
checked echocardiogram: No LV dysfunction or profound valvular abnormalities
CT of abdomen reviewed no evidence of retroperitoneal bleed re: ongoing anemia
Gram-negative bacilli bacteremia =- blood cultures x2 enterobacter
- Repeat blood cx's x 2 (before meropenem) - no growth to date as of 05/31/2024
- HD cath removed 06/01
- progressive pancytopenia, switched to Cefidercocol
-Remains on oral vancomycin for colonizing
Patient with significant hypoalbuminemia of 2.2 affecting effective circulating volume and with subsequent hemodynamic instability
Surveillance negative cultures but patient continues with pancytopenia and has antibiotic resistance
After discussion with infectious disease we will continue with temporary dialysis catheter
Discussed with her daughter was at the bedside
Next dialysis will be Saturday off schedule for the holiday
-
-
Date of Service: June 06, 2024
CC / HPI / ROS
-
Chief Complaint:
ESRD
History of Present Illness:
Remains hypotensive on midodrine 20mg q8
Continued antibiotic for Enterobacter bacteremia
ESRD on chronic Saturday
Review of Systems:
No chest pain or shortness of breath
No fevers
Labs
-
Labs:
WBC 3.1 10^3/uL (4.8-10.8) L 06/04/24 04:23
RBC 2.93 10^6/uL (4.20-5.40) L 06/04/24 04:23
Hgb 8.0 g/dL (12.0-16.0) L 06/05/24 13:38
Hct 26.3 % (37.0-47.0) L 06/05/24 13:38
Plt Count 134 10^3/uL (130-400) 06/04/24 04:23
Sodium 136 mmol/L (135-145) 06/05/24 13:38
Potassium 3.5 mmol/L (3.5-5.1) 06/05/24 13:38
Chloride 102 mmol/L (98-107) 06/05/24 13:38
Carbon Dioxide 32 mmol/L (22-30) H 06/05/24 13:38
BUN 22 mg/dl (7-17) H 06/04/24 14:49
Creatinine 1.7 mg/dL (0.6-1.0) H 06/04/24 14:49
eGFR 31.66 06/04/24 14:49
Glucose 75 mg/dl (70-99) 06/04/24 14:49
Calcium 8.2 mg/dl (8.4-10.2) L 06/04/24 14:49
Albumin 2.2 g/dl (3.5-5.0) L 05/26/24 16:18
Physical Exam
-
Vital Signs:
Vital Signs
Temp Pulse Resp BP Pulse Ox
97.9 F 78 22 99/42 96
06/06/24 07:54 06/06/24 08:03 06/06/24 08:03 06/06/24 05:32 06/06/24 08:03
Cardiovascular:: Regular rate and rhythm
Respiratory:: Bilateral: Coarse
Lung Excursion:: Normal
Abdomen:: Nontender and Soft
Bowel Sounds:: Normal
Extremity Edema:: +1: Bilateral:
Griffiths Catheter: No
--- NOTE | 2024-06-06 10:15 | W.PN.ID1 ---
Date of Service
Date of Service: June 06, 2024
Today's Communication
c/w ceftazidime-avibactam and aztreonam for CRE - awaiting sensitivities
marked improvement with micafungin for intertrigo - will continue for present
oral vanc C difficile prophylaxis
Assessment / Plan
CRE - Enterobacter (MDRO)
Suspected HD cath source
Hypotension - possibly improving
Shingles below L breast - resolved, healing wound under the breast
ESRD on HD
Reported allergy to cephalexin (unknown)
Replaced L hip
- 05/29 blood cultures x2 enterobacter - CRE with resistance to avycaz and eravacycline
- c/w ceftazidime-avibactam plus aztreonam 06/03 to present - day 4
- sensitivities to ceftazidime-avibactam to be sent out will be shipped saturday due to closures of the receiving lab over the weekend (coordinating with [facility] and our photofinishing laboratory worker Derek), sensitivities for cefiderocol, meropenem-vaborbactam and
polymyxin already sent out 06/03 - still pending
- 05/31 Repeat blood cx's x 2 (before meropenem) - no growth to date
- HD cath removed 06/01 - cath tip culture sensitivity very low, approximately 20%; most likely source despite a negative culture
Intertrigo
- markedly improved appearance
- c/w micafungin day 3
Colonization with C Difficile
- continue oral vanc BID given known colonization with c diff while on broad spectrum rx
- continue enhanced contact precautions for C difficile while in house; also plan to continue precautions given CRE
- follow clinically
Chief Complaint
-: Bacteremia (due to MDRO) and Other (sepsis, asymptomatic bacteruria)
Subjective / Review of Systems
afebrile
bp running in the 90s systolic this am
for HD saturday
no complaints
Vital Signs / Physical Exam
Vital Signs
Vital Signs
Temp Pulse Resp BP Pulse Ox
97.9 F 78 22 99/42 96
06/06/24 07:54 06/06/24 08:03 06/06/24 08:03 06/06/24 05:32 06/06/24 08:03
Physical Exam
Constitutional: No Acute Distress
Cardiovascular: Regular Rate and S1/S2; Negative Murmur or Rub
Pulmonary: Clear and Symmetric; Negative Wheezes or Rales
Gastrointestinal: Soft, Non Tender, Non Distended and Normal Bowel Sounds
Skin: Warm and Dry; Negative Rash or Jaundice
Wound: Other (surgical site remains clean, no erythema, no odoro, no drainage; bilateral proximal thighs/mons pubis resolving erythema, )
Objective Data
Lab Data
Lab Results
06/05/24 13:38
06/05/24 13:38
Estimated Creat Clear 30 ml/min 06/04/24 14:49
Total Bilirubin 0.5 mg/dl (0.2-1.3) 05/26/24 16:18
AST 22 U/L (14-36) 05/26/24 16:18
ALT 26 U/L (0-35) 05/26/24 16:18
Alkaline Phosphatase 99 U/L (38-126) 05/26/24 16:18
Most recent labs reviewed.
Micro Results:
06/01/24 04:09 Blood Culture - Final
Blood/Venous No Growth - Final Report
06/01/24 04:09 Blood Culture - Final
Blood/Venous No Growth - Final Report
05/31/24 06:08 Blood Culture - Final
Blood/Venous No Growth - Final Report
05/31/24 06:08 Blood Culture - Final
Blood/Venous No Growth - Final Report
06/01/24 14:45 Catheter Tip Culture - Final
Dialysis Line No Growth After 72 Hours
12/13/24 12:11 Blood Culture - Preliminary
Blood/Venous Enterobacter cloacae
Enterobacter cloacae#2
Gram Stain - Preliminary
05/29/24 12:43 Blood Culture - Preliminary
Blood/Venous Enterobacter species
Gram Stain - Preliminary
05/26/24 17:24 Salmonella/Shigella Culture - Final
Feces/Stool No Salmonella, Shigella, Aeromonas or Plesiomonas species
isolated.
Campylobacter Culture - Final
No Campylobacter species isolated.
Shiga Toxin Test - Final
No E. coli Shiga Toxin 1 or 2 detected.
05/26/24 17:24 Urine Culture - Final
Urine Klebsiella pneumoniae
05/26/24 23:43 MRSA Screen - Final
Nose Staph aureus MRSA
05/26/24 17:24 C. difficile GDH Antigen & Toxins - Final
Feces/Stool C. difficile antigen positive, toxin negative.
Clostridium difficile present, but toxin not detected.
Patient may be a carrier, colonized with nontoxinogenic
strain or the level of toxin in sample is below detection
limits. This information should be used in conjunction with
the patient's clinical history.
- Final
Negative for Norovirus GI and GII.
05/29/24 CT a/P:
1. No CT evidence for acute retroperitoneal or intraperitoneal hemorrhage.
2. Moderate to severe bilateral renal cortical volume loss and severe scarring in the lateral cortex of the left kidney consistent with END-STAGE RENAL DISEASE.
3. Severe calcific atherosclerotic plaque in the abdominal aorta and common iliac arteries.
4. Mild splenomegaly.
5. Severe diverticulosis in the sigmoid colon.
6. Small bilateral pleural effusions with adjacent bilateral lower lobe airspace consolidation (possibly right lower lobe pneumonia).
7. Severe calcific atherosclerotic plaque in the coronary arteries and thoracic aorta.
8. Mild cardiomegaly.
9. 6.8 mm pulmonary nodule in the lateral segment of the right middle lobe (possibly infectious or inflammatory in etiology). A follow-up chest CT examination in 6-12 months is recommended
10. Moderate anasarca.
11. Moderate to severe paraspinal and pelvic muscle atrophy.
12. Severe discogenic degenerative disease at L4/L5 and L5/S1.
[2024-06-06] MEDS: MYCAMINE 105 MG IV (11:54)
--- NOTE | 2024-06-06 15:58 | PTCARENOTE ---
Pt w/ soft/brown BM. Incontinent of small amount of urine. Pt pleasant/conversive/watching football on tv.
--- NOTE | 2024-06-06 15:59 | W.PN.HOSP.TC ---
Today's Communication/Plan
-
Assessment / Plan
Assessment / Plan
General: Well Developed, Well Nourished, No Apparent Distress, Comfortable and Conversant
HEENT: NormoCephalic, Moist mucous membranes, Atraumatic
Respiratory: Clear and Non Labored Respirations
Cardiac: S1/S2 and Regular Rhythm; No Murmur, Rub or Gallop
GI: Soft, Non Tender, Non Distended and Normal Bowel Sounds
Musculoskeletal: left thigh wound
Skin: Warm a
Neuro: Awake, AO x 3 and Nonfocal/grossly intact
Psych: Calm and Intact Judgment/Insight
Assessment:
Enterobacter bacteremia/GNR - Panresistant
-Continue ivatb, start aztreonam and ceftazidime/avibactam per ID
-Repeat bcx, no growth to date, repeat till greater than 48 hours neg
-unsure of source, will plan to remove RACWPC, tip culture
---follow up tip culture, ngtd
-ID following
Intertrigo
-Micafungin started by ID
ongoing Hypotension, multifactorial.
- Asymptomatic
- Hypoalbuminemia, start Ensure TID
- Without evidnece of active GI bleed, Hgb stable
- AM cortisol normal
- Echo with normal EF, no significant valve pathology
Anemia with heme + stool; likely Could be exacerbated by Eliquis
Hgb most recently 8.1. s/p 2 unit PRBCs this hospitalization
Heme positive stool
frequent loose stools with recent C. Diff history
GI following; d/w daughter and holding off EGD/Colonoscopy at this time
Eliquis remains held
continue Protonix BID
Norovirus negative, C. difficile toxin negative however antigen positive
Prolonged recent hospitalization at [facility]. Requested records. Recently moved to [facility]
Per daughter it appeared that patient had septic shock there secondary to left groin abscess. then later developed renal failure, Cdiff, also had pneumonia. CXR here with 'pneumonia' likely residual, no active symptoms. Not on Abx.
Chronic hypoxic respiratory insufficiency suspect related to chronic hospitalization, deconditioning
- wean O2 as able.
ESRD on HD
HD schedule --
appears to be making urine as ED RN cathed her for 1100cc urine, cloudy
Nephrology following
continue midodrine - increased to 20mg TID on 05/28 by Nephrology
-Plan for temp HD line per Neph
acute urinary retention
Asymptomatic bacteruria
- s/p Griffiths
- no indication for Abx per ID for urine culture growing Klebsiella
parox a-fib
continue amiodarone
Eliquis remains held as Hb stabilizes
herpes zoster
rash under left breast that round to left back, some appear to be getting better
continue valacyclovir x 10 days per ID; precautions
hyperlipidemia
continue rosuvastatin
Hx c-diff colitis
continue PO Vanco
continue probiotics
osteoarthritis
Chronic wounds
- L anterior upper thigh full thickness wound to subcutaneous layer, pink that can be visualized, undermines medially about 3cm, mod-large amount of murky serous drainage. Skin mild red around wound suspect r/t moisture.
- L medial upper thigh with a linear dermal ulcer suspect from rubbing and previous diaper use.
- Sacral crease stage 2 pressure injury along with MASD
- bilateral sacral buttocks stage 2 pressure injuries along with MASD.
- Perineal MASD.
- L medial posterior thigh linear red ecchymotic area.
- Small abrasions on R posterior ankle/calf. Heels slow to libby red/boggy.
- L anterior, lateral and posterior chest/back with scattered zoster lesions.
- follow wound care recs
Code status: DNR
DVT Prophylaxis: heparin
Anticipated Discharge: > 48 hours
Subjective/Interval History
-
Date of Service: June 06, 2024
seen and examined
no new complaints
no acute overnight events
Objective Data
-
Vital Signs:
Vital Signs
Temp Pulse Resp BP Pulse Ox
98.2 F 73 24 100/49 95
06/06/24 11:40 06/06/24 14:00 06/06/24 14:00 06/06/24 14:00 06/06/24 14:00
I&O
06/05/24 06/06/24 06/07/24
06:59 06:59 06:59
Intake Total 644.7 / 644.7 489.5 / 489.5
Output Total 0 / 0 400 / 400
Balance 644.7 / 644.7 89.5 / 89.5
Physical Exam
-
General: Well Developed and Well Nourished
HEENT: Normocephalic and Atraumatic
Respiratory: Clear to Auscultation
Cardiac: Regular Rhythm and S1/S2
GI: Soft, Nontender, Nondistended and Normal Bowel Sounds
Skin: Warm and Dry
Neuro: Awake, Alert, Oriented and AO x 3
Psych: Calm
[2024-06-06] MEDS: [UNRECOGNIZED DRUG - OTHER] 54.512 MG IV (18:13)
[2024-06-06] MEDS: AZACTAM 110 MG IV (18:13)
[2024-06-07] VITALS (28 sets, daily range): BP systolic 90–126; BP diastolic 49–75; BMI 30.1
--- NOTE | 2024-06-07 01:59 | PTCARENOTE ---
Assumed care for patient overnight. Received report via dayshift RN. Pt AAOx3, cooperative. NSR on tele. 98% O2 sat on 1L NC. L forearm IV infultrated and painful, new IV site in R wrist. Incontinent of small amount of urine. Bladder scanned for 242
ml see worklist. Wound care performed. Full CHG bath. Pt performed oral care with assistance. Pt tolerating Q2 hour turns and repositioning. Call cruz is within reach.
[2024-06-07] MEDS: ProAmatine 20 MG PO ×3 (04:14→20:51)
[2024-06-07 05:33] LABS: Hematocrit 25.6 % (37.0-47.0); Hemoglobin 7.7 g/dL (12.0-16.0); Mean Corp Hgb Conc. 30.1 g/dL (33.0-37.0); Mean Corpuscular Hgb 29.3 pg (27.0-31.0); Mean Corpuscular Volume 97.3 fL (81.0-99.0); Red Blood Cell Count 2.63 10^6/uL (4.20-5.40); Red Cell Dist. Width 23.4 % (11.5-14.5)
[2024-06-07] MEDS: SYMBICORT 160/4.5 MCG INHALER 2 PUFF INH ×2 (07:48→19:40)
[2024-06-07] MEDS: RETACRIT 10000 UNITS IV (08:40)
[2024-06-07] MEDS: MANNITOL 25% 12.5 GRAMS IV ×2 (08:44→10:01)
[2024-06-07 09:07] LABS: Absolute Neutrophils -Man Diff 0.8 10^3/uL (1.4-6.5); Band Neutrophils 2 % (0-3); Eosinophils 4 % (0-6); Lymphocytes 37 % (20-51); Mean Platelet Volume 9.5 fL (7.4-10.4); Monocytes 15 % (2-9); Platelet Count 100 10^3/uL (130-400); Platelets Checked Yes; Segmented Neutrophils 42 % (42-75)
[2024-06-07 09:08] LABS: Anisocytosis 1+; Hypochromasia 1+; Normal RBC Morphology No; Polychromasia 1+; Stomatocytes 1+; Total Cells Counted 100
[2024-06-07] MEDS: HEPARIN 5000 UNITS SC ×2 (09:46→20:50)
[2024-06-07] MEDS: NSS (PRESERVATIVE FREE) 10 ML IV ×2 (09:47→20:51)
[2024-06-07] MEDS: PROTONIX IV 40 MG IV ×2 (09:47→20:51)
--- NOTE | 2024-06-07 10:05 | W.PN.ID1 ---
Addendum entered and electronically signed by Harmony Glass MD 06/08/24 16:09:
initial sensitivities back
S: cefiderocol
I: vabomere
ceftaz/shaylee/aztreonam still pending
switched to cefiderocol
dose should be immediately after HD on dialysis days - will discuss with nephrology in the AM
AW
Original Note:
Date of Service
Date of Service: June 07, 2024
Today's Communication
c/w aztreonam and avibactam
micafungin switched to fluconazole 150 mg q week x4 weeks
if further decline in wbc will switch to vabomere
Assessment / Plan
CRE - Enterobacter (MDRO)
Suspected HD cath source
Hypotension - possibly improving
Shingles below L breast - resolved, healing wound under the breast
ESRD on HD
Reported allergy to cephalexin (unknown)
Replaced L hip
- follow leukopenia - if further progression tomorrow will switch antibiotics to alternative (vabomere) which we have in house
- 05/29 blood cultures x2 enterobacter - CRE with resistance to avycaz and eravacycline
- c/w ceftazidime-avibactam plus aztreonam 06/03 to present - day 5
- sensitivities to ceftazidime-avibactam to be sent out will be shipped saturday due to closures of the receiving lab over the weekend (coordinating with [facility] and our slab worker Derek), sensitivities for cefiderocol, meropenem-vaborbactam and
polymyxin already sent out 06/03 - still pending
- 05/31 Repeat blood cx's x 2 (before meropenem) - no growth to date
- HD cath removed 06/01 - cath tip culture sensitivity very low, approximately 20%; most likely source despite a negative culture
Intertrigo
- markedly improved appearance
- transition to fluconazole 150 mg PO q week x4 more weeks; stop micafungin
- continue topical miconazole and zinc oxide
Colonization with C Difficile
- continue oral vanc BID given known colonization with c diff while on broad spectrum rx
- continue enhanced contact precautions for C difficile while in house; also plan to continue precautions given CRE
- follow clinically
Chief Complaint
-: Bacteremia (due to MDRO) and Other (sepsis, asymptomatic bacteruria)
Subjective / Review of Systems
afebrile
BPs appear to be improving
Vital Signs / Physical Exam
Vital Signs
Vital Signs
Temp Pulse Resp BP Pulse Ox
98.0 F 72 22 114/57 98
06/07/24 08:00 06/07/24 08:00 06/07/24 08:00 06/07/24 08:00 06/07/24 08:00
Physical Exam
Constitutional: No Acute Distress
Cardiovascular: Regular Rate
Pulmonary: Symmetric and Non Labored
Gastrointestinal: Non Distended
Skin: Warm
Neurological: Awake
Objective Data
Lab Data
Lab Results
06/07/24 04:27
06/05/24 13:38
Estimated Creat Clear 30 ml/min 06/04/24 14:49
Total Bilirubin 0.5 mg/dl (0.2-1.3) 05/26/24 16:18
AST 22 U/L (14-36) 05/26/24 16:18
ALT 26 U/L (0-35) 05/26/24 16:18
Alkaline Phosphatase 99 U/L (38-126) 05/26/24 16:18
Most recent labs reviewed.
Micro Results:
05/29/24 12:43 Blood Culture - Final
Blood/Venous Enterobacter species
Gram Stain - Final
05/29/24 12:11 Blood Culture - Final
Blood/Venous Enterobacter cloacae
Enterobacter cloacae#2
Gram Stain - Final
06/01/24 04:09 Blood Culture - Final
Blood/Venous No Growth - Final Report
06/01/24 04:09 Blood Culture - Final
Blood/Venous No Growth - Final Report
05/31/24 06:08 Blood Culture - Final
Blood/Venous No Growth - Final Report
05/31/24 06:08 Blood Culture - Final
Blood/Venous No Growth - Final Report
06/01/24 14:45 Catheter Tip Culture - Final
Dialysis Line No Growth After 72 Hours
05/26/24 17:24 Salmonella/Shigella Culture - Final
Feces/Stool No Salmonella, Shigella, Aeromonas or Plesiomonas species
isolated.
Campylobacter Culture - Final
No Campylobacter species isolated.
Shiga Toxin Test - Final
No E. coli Shiga Toxin 1 or 2 detected.
05/26/24 17:24 Urine Culture - Final
Urine Klebsiella pneumoniae
05/26/24 23:43 MRSA Screen - Final
Nose Staph aureus MRSA
05/26/24 17:24 C. difficile GDH Antigen & Toxins - Final
Feces/Stool C. difficile antigen positive, toxin negative.
Clostridium difficile present, but toxin not detected.
Patient may be a carrier, colonized with nontoxinogenic
strain or the level of toxin in sample is below detection
limits. This information should be used in conjunction with
the patient's clinical history.
- Final
Negative for Norovirus GI and GII.
05/29/24 CT a/P:
1. No CT evidence for acute retroperitoneal or intraperitoneal hemorrhage.
2. Moderate to severe bilateral renal cortical volume loss and severe scarring in the lateral cortex of the left kidney consistent with END-STAGE RENAL DISEASE.
3. Severe calcific atherosclerotic plaque in the abdominal aorta and common iliac arteries.
4. Mild splenomegaly.
5. Severe diverticulosis in the sigmoid colon.
6. Small bilateral pleural effusions with adjacent bilateral lower lobe airspace consolidation (possibly right lower lobe pneumonia).
7. Severe calcific atherosclerotic plaque in the coronary arteries and thoracic aorta.
8. Mild cardiomegaly.
9. 6.8 mm pulmonary nodule in the lateral segment of the right middle lobe (possibly infectious or inflammatory in etiology). A follow-up chest CT examination in 6-12 months is recommended
10. Moderate anasarca.
11. Moderate to severe paraspinal and pelvic muscle atrophy.
12. Severe discogenic degenerative disease at L4/L5 and L5/S1.
--- NOTE | 2024-06-07 11:03 | W.PN.NEPH.HD ---
Progress Note - Hemodialysis
-
Date of Service: June 07, 2024
Duration: 30 minutes and 3 hours (3.5)
Potassium Bath: 3
Calcium Bath: 2.5
Opti-Dialyzer: 160
Ultrafiltration: Other (1 L)
Blood Flow: 400
Dialysate Flow: 600
Heparin: None
EPO: Yes
[2024-06-07] MEDS: VISBIOME 2 CAP PO (13:26)
[2024-06-07] MEDS: CRESTOR 5 MG PO (13:27)
[2024-06-07] MEDS: PACERONE 200 MG PO (13:27)
[2024-06-07] MEDS: FOLVITE 1 MG PO (13:28)
[2024-06-07] MEDS: NEURONTIN 100 MG PO (13:30)
[2024-06-07] MEDS: SINGULAIR 10 MG PO (13:31)
[2024-06-07] MEDS: FIRVANQ 125 MG PO ×2 (13:44→20:50)
--- NOTE | 2024-06-07 13:44 | W.PN.HOSP.TC ---
Today's Communication/Plan
-
Assessment / Plan
Assessment / Plan
General: Well Developed, Well Nourished, No Apparent Distress, Comfortable and Conversant
HEENT: NormoCephalic, Moist mucous membranes, Atraumatic
Respiratory: Clear and Non Labored Respirations
Cardiac: S1/S2 and Regular Rhythm; No Murmur, Rub or Gallop
GI: Soft, Non Tender, Non Distended and Normal Bowel Sounds
Musculoskeletal: left thigh wound
Skin: Warm a
Neuro: Awake, AO x 3 and Nonfocal/grossly intact
Psych: Calm and Intact Judgment/Insight
Assessment:
Enterobacter bacteremia/GNR - Panresistant
-Continue ivatb, started aztreonam and ceftazidime/avibactam per ID
-Repeat bcx, no growth to date
-unsure of source, will plan to remove RACWPC, tip culture
---tip culture, ngtd
-ID following
Intertrigo
-Micafungin started by ID
ongoing Hypotension, multifactorial. - bp stable
- Asymptomatic
- Hypoalbuminemia, start Ensure TID
- Without evidnece of active GI bleed, Hgb stable
- AM cortisol normal
- Echo with normal EF, no significant valve pathology
Anemia with heme + stool; likely Could be exacerbated by Eliquis
Hgb most recently 8.1. s/p 2 unit PRBCs this hospitalization
Heme positive stool
frequent loose stools with recent C. Diff history
GI following; d/w daughter and holding off EGD/Colonoscopy at this time
Eliquis remains held
continue Protonix BID
Norovirus negative, C. difficile toxin negative however antigen positive
Prolonged recent hospitalization at [facility]. Requested records. Recently moved to [facility]
Per daughter it appeared that patient had septic shock there secondary to left groin abscess. then later developed renal failure, Cdiff, also had pneumonia. CXR here with 'pneumonia' likely residual, no active symptoms. Not on Abx.
Chronic hypoxic respiratory insufficiency suspect related to chronic hospitalization, deconditioning
- wean O2 as able.
ESRD on HD
HD schedule --
appears to be making urine as ED RN cathed her for 1100cc urine, cloudy
Nephrology following
continue midodrine - increased to 20mg TID on 05/28 by Nephrology
-Plan for temp HD line per Neph
acute urinary retention
Asymptomatic bacteruria
- s/p Griffiths
- no indication for Abx per ID for urine culture growing Klebsiella
parox a-fib
continue amiodarone
Eliquis remains held as Hb stabilizes
herpes zoster
rash under left breast that round to left back, some appear to be getting better
continue valacyclovir x 10 days per ID; precautions
hyperlipidemia
continue rosuvastatin
Hx c-diff colitis
continue PO Vanco
continue probiotics
osteoarthritis
Chronic wounds
- L anterior upper thigh full thickness wound to subcutaneous layer, pink that can be visualized, undermines medially about 3cm, mod-large amount of murky serous drainage. Skin mild red around wound suspect r/t moisture.
- L medial upper thigh with a linear dermal ulcer suspect from rubbing and previous diaper use.
- Sacral crease stage 2 pressure injury along with MASD
- bilateral sacral buttocks stage 2 pressure injuries along with MASD.
- Perineal MASD.
- L medial posterior thigh linear red ecchymotic area.
- Small abrasions on R posterior ankle/calf. Heels slow to libby red/boggy.
- L anterior, lateral and posterior chest/back with scattered zoster lesions.
- follow wound care recs
Code status: DNR
DVT Prophylaxis: heparin
Anticipated Discharge: > 48 hours
Subjective/Interval History
-
Date of Service: June 07, 2024
seen an dexmained
no new compalints
no acute ovenright events
Objective Data
-
Labs:
Laboratory Results
06/07/24
04:27
WBC 2.0 L*
Hgb 7.7 L
Hct 25.6 L
Plt Count 100 L D
Vital Signs:
Vital Signs
Temp Pulse Resp BP Pulse Ox
98.0 F 90 30 104/56 100
06/07/24 11:45 06/07/24 12:00 06/07/24 12:00 06/07/24 12:00 06/07/24 12:00
I&O
06/06/24 06/07/24 06/08/24
06:59 06:59 06:59
Intake Total 489.5 / 489.5 240 / 240
Output Total 400 / 400
Balance 89.5 / 89.5 240 / 240
[2024-06-07] MEDS: DESENEX/MITRAZOL/ZEASORB 1 APPLIC TOPICAL ×3 (13:45→20:53)
[2024-06-07] MEDS: DAKIN'S SOLUTION 0.125% 1/4 STRENGTH 473 ML TOPICAL (13:46)
[2024-06-07] MEDS: ZINC OXIDE OINTMENT 1 APPLIC TOPICAL ×3 (13:46→20:52)
[2024-06-07] MEDS: DEBROX EAR DROPS 1 DROP OTIC ×2 (13:46→20:49)
[2024-06-07] MEDS: AZACTAM 110 MG IV (18:59)
[2024-06-07] MEDS: [UNRECOGNIZED DRUG - OTHER] 54.512 MG IV (18:59)
[2024-06-07] MEDS: MYLICON 80 MG PO (20:54)
[2024-06-07] MEDS: LAC HYDRIN, AM LACTIN LOTION 1 APPLIC TOPICAL (20:54)
[2024-06-08] VITALS (13 sets, daily range): BP systolic 110–123; BP diastolic 53–79; BMI 30.6
--- NOTE | 2024-06-08 00:59 | PTCARENOTE ---
Pt AAOx3, very pleasant. NSR on tele. 96% O2 sat on 1L NC. Bladder scanned pt for 320ml of urine. Wound care done see worklist. Full CHG bath. [employer]LE [employer] ordered lac-hydrin, applied to back and b/l legs. Pt complaining of GI upset, and obtained order for
PRN Gas-X. Pt denies any discomfort at this time. Pt tolerating frequent repositioning and turning. Call cruz is within reach.
[2024-06-08] MEDS: ProAmatine 20 MG PO ×3 (04:31→19:26)
[2024-06-08 05:07] LABS: Hematocrit 28.5 % (37.0-47.0); Hemoglobin 8.4 g/dL (12.0-16.0); Mean Corp Hgb Conc. 29.5 g/dL (33.0-37.0); Mean Corpuscular Hgb 29.6 pg (27.0-31.0); Mean Corpuscular Volume 100.4 fL (81.0-99.0); Mean Platelet Volume 9.2 fL (7.4-10.4); Platelet Count 118 10^3/uL (130-400); Red Blood Cell Count 2.84 10^6/uL (4.20-5.40); White Blood Cell Count 1.9 10^3/uL (4.8-10.8)
[2024-06-08 05:20] LABS: Blood Urea Nitrogen 5 mg/dl (7-17); Calcium 8.4 mg/dl (8.4-10.2); Carbon Dioxide 32 mmol/L (22-30); Chloride 105 mmol/L (98-107); Estimated Creatinine Clearance 44 ml/min; Glucose 77 mg/dl (70-99); Potassium 3.7 mmol/L (3.5-5.1); Sodium 138 mmol/L (135-145); eGFR 53.39
[2024-06-08] MEDS: SYMBICORT 160/4.5 MCG INHALER 2 PUFF INH ×2 (07:48→19:38)
[2024-06-08 07:54] LABS: % Basophils 1.1 % (0-2); % Eosinophils 6.8 % (0-6); % Lymphocytes 56.8 % (20.5-51.1); % Monocytes 13.2 % (1.7-9.3); % Neutrophils 22.1 % (42.2-75.2); Absolute Eosinophils 0.1 10^3/uL (0-0.7); Absolute Lymphocytes 1.1 10^3/uL (1.2-3.4); Absolute Monocytes 0.3 10^3/uL (0.1-0.6); Absolute Neutrophils 0.4 10^3/uL (1.4-6.5); Nucleated Red Blood Cells % 0 %
[2024-06-08] MEDS: FIRVANQ 125 MG PO ×2 (09:07→19:25)
[2024-06-08] MEDS: DEBROX EAR DROPS 1 DROP OTIC ×2 (09:08→19:25)
[2024-06-08] MEDS: DESENEX/MITRAZOL/ZEASORB 1 APPLIC TOPICAL ×3 (09:08→22:31)
[2024-06-08] MEDS: ZINC OXIDE OINTMENT 1 APPLIC TOPICAL ×3 (09:08→22:31)
[2024-06-08] MEDS: PACERONE 200 MG PO (09:09)
[2024-06-08] MEDS: VISBIOME PO (09:10)
[2024-06-08] MEDS: SINGULAIR 10 MG PO (09:10)
[2024-06-08] MEDS: FOLVITE 1 MG PO (09:10)
[2024-06-08] MEDS: HEPARIN 5000 UNITS SC (09:11)
[2024-06-08] MEDS: DAKIN'S SOLUTION 0.125% 1/4 STRENGTH 473 ML TOPICAL (09:11)
[2024-06-08] MEDS: NEURONTIN 100 MG PO (09:11)
[2024-06-08] MEDS: CRESTOR 5 MG PO (09:11)
[2024-06-08] MEDS: NSS (PRESERVATIVE FREE) 10 ML IV ×2 (09:12→19:25)
[2024-06-08] MEDS: LAC HYDRIN, AM LACTIN LOTION 1 APPLIC TOPICAL ×2 (09:12→19:30)
[2024-06-08] MEDS: PROTONIX IV 40 MG IV ×2 (09:13→19:25)
--- NOTE | 2024-06-08 10:14 | CM ---
CM continues to follow for discharge/return to [facility] for therapy and hemodialysis when medically ready. No anticipated discharge date at this time.
[2024-06-08] MEDS: VISBIOME 2 CAP PO (12:02)
--- NOTE | 2024-06-08 12:17 | W.PN.ID1 ---
Date of Service
Date of Service: June 08, 2024
Today's Communication
follow cbc
- given neutropenia - switched to vabomere - day 6 (provided that both drugs result as susceptible as expected
awaiting sensitivities
Assessment / Plan
CRE - Enterobacter (MDRO)
Suspected HD cath source
Hypotension - possibly improving
Shingles below L breast - resolved, healing wound under the breast
ESRD on HD
Reported allergy to cephalexin (unknown)
Replaced L hip
- follow leukopenia essentially stable - if further progression will switch antibiotics to alternative (vabomere) which we have in house
- 05/29 blood cultures x2 enterobacter - CRE with resistance to avycaz and eravacycline
- given neutropenia - switched to vabomere - day 6 (provided that both drugs result as susceptible as expected
- sensitivities to ceftazidime-avibactam to be sent out will be shipped today due to closures of the receiving lab over the weekend (coordinated with [facility] and our laboratory tech Derek), sensitivities for cefiderocol, meropenem-vaborbactam and polymyxin
already sent out 06/03 - still pending
- 05/31 Repeat blood cx's x 2 (before meropenem) - no growth to date
- HD cath removed 06/01 - cath tip culture sensitivity very low, approximately 20%; most likely source despite a negative culture
Intertrigo - markedly improved appearance
- c/w fluconazole 150 mg PO q week x4 more weeks; stop micafungin
- continue topical miconazole and zinc oxide
Colonization with C Difficile
- continue oral vanc BID given known colonization with c diff while on broad spectrum rx
- continue enhanced contact precautions for C difficile while in house; also plan to continue precautions given CRE
- follow clinically
Chief Complaint
-: Bacteremia (due to MDRO) and Other (sepsis, asymptomatic bacteruria)
Subjective / Review of Systems
afebrile
bp stable
making some urine (400ccs yesterday before finally straight cathed, we are not straight cathing with every bladder scan so its not cumulative)
spoke with micro and confirmed that sensi for vabomere arent back yet, confirmed that aztreonam/avycaz sensi were sent out
Vital Signs / Physical Exam
Vital Signs
Vital Signs
Temp Pulse Resp BP Pulse Ox
98.0 F 76 22 123/61 97
06/08/24 07:39 06/08/24 09:09 06/08/24 07:50 06/08/24 09:09 06/08/24 07:50
Physical Exam
Constitutional: No Acute Distress
Cardiovascular: Regular Rate and S1/S2; Negative Murmur or Rub
Pulmonary: Clear and Symmetric; Negative Wheezes or Rales
Gastrointestinal: Soft, Non Tender, Non Distended and Normal Bowel Sounds
Skin: Warm and Dry; Negative Rash or Jaundice
Lines: HD Cath
Objective Data
Lab Data
Lab Results
06/08/24 04:39
06/08/24 04:39
Estimated Creat Clear 44 ml/min 06/08/24 04:39
Total Bilirubin 0.5 mg/dl (0.2-1.3) 05/26/24 16:18
AST 22 U/L (14-36) 05/26/24 16:18
ALT 26 U/L (0-35) 05/26/24 16:18
Alkaline Phosphatase 99 U/L (38-126) 05/26/24 16:18
Most recent labs reviewed.
Micro Results:
05/29/24 12:43 Blood Culture - Final
Blood/Venous Enterobacter species
Gram Stain - Final
05/29/24 12:11 Blood Culture - Final
Blood/Venous Enterobacter cloacae
Enterobacter cloacae#2
Gram Stain - Final
06/01/24 04:09 Blood Culture - Final
Blood/Venous No Growth - Final Report
06/01/24 04:09 Blood Culture - Final
Blood/Venous No Growth - Final Report
05/31/24 06:08 Blood Culture - Final
Blood/Venous No Growth - Final Report
05/31/24 06:08 Blood Culture - Final
Blood/Venous No Growth - Final Report
06/01/24 14:45 Catheter Tip Culture - Final
Dialysis Line No Growth After 72 Hours
05/26/24 17:24 Salmonella/Shigella Culture - Final
Feces/Stool No Salmonella, Shigella, Aeromonas or Plesiomonas species
isolated.
Campylobacter Culture - Final
No Campylobacter species isolated.
Shiga Toxin Test - Final
No E. coli Shiga Toxin 1 or 2 detected.
05/26/24 17:24 Urine Culture - Final
Urine Klebsiella pneumoniae
05/26/24 23:43 MRSA Screen - Final
Nose Staph aureus MRSA
05/26/24 17:24 C. difficile GDH Antigen & Toxins - Final
Feces/Stool C. difficile antigen positive, toxin negative.
Clostridium difficile present, but toxin not detected.
Patient may be a carrier, colonized with nontoxinogenic
strain or the level of toxin in sample is below detection
limits. This information should be used in conjunction with
the patient's clinical history.
- Final
Negative for Norovirus GI and GII.
05/29/24 CT a/P:
1. No CT evidence for acute retroperitoneal or intraperitoneal hemorrhage.
2. Moderate to severe bilateral renal cortical volume loss and severe scarring in the lateral cortex of the left kidney consistent with END-STAGE RENAL DISEASE.
3. Severe calcific atherosclerotic plaque in the abdominal aorta and common iliac arteries.
4. Mild splenomegaly.
5. Severe diverticulosis in the sigmoid colon.
6. Small bilateral pleural effusions with adjacent bilateral lower lobe airspace consolidation (possibly right lower lobe pneumonia).
7. Severe calcific atherosclerotic plaque in the coronary arteries and thoracic aorta.
8. Mild cardiomegaly.
9. 6.8 mm pulmonary nodule in the lateral segment of the right middle lobe (possibly infectious or inflammatory in etiology). A follow-up chest CT examination in 6-12 months is recommended
10. Moderate anasarca.
11. Moderate to severe paraspinal and pelvic muscle atrophy.
12. Severe discogenic degenerative disease at L4/L5 and L5/S1.
--- NOTE | 2024-06-08 12:42 | W.PN.HOSP.TC ---
Today's Communication/Plan
-
Restart Eliquis tonight
Check CBC in a.m.
Monitor UO, may need Griffiths catheter
Continue antimicrobials per ID
HD tomorrow
Assessment / Plan
Assessment / Plan
Impression
Enterobacter bacteremia/panresistant
Intertrigo
Hypertension
End-stage renal disease on hemodialysis
Anemia with heme positive stool
leukopenia
Chronic hypoxic respiratory insufficiency secondary to deconditioning
Acute urinary retention
Paroxysmal A-fib
Herpes zoster
Hyperlipidemia
Chronic wounds
History of C. difficile colitis
Assessment and plan
Enterobacter bacteremia/panresistant
Continue IV aztreonam and ceftazidime/IV Bactrim per ID-day 6
Repeat blood cultures shows no growth
Catheter tip culture shows no growth
ID following
Intertrigo
Micafungin stopped.
Switched to 150 mg fluconazole once a week for 4 weeks
Hypotension
Suspect multifactorial
Blood pressure today 126/61-stable on midodrine TID
No active bleeding
Hemoglobin 8.4>7.7
Echo with normal EF, no significant valve pathology
Anemia with heme positive stool
Hgb most recently 8.4. s/p 2 unit PRBCs this hospitalization
Heme positive stool
frequent loose stools with recent C. Diff history
GI following.
Stop heparin
Restart Eliquis tonight
Check CBC in a.m.
continue Protonix BID
Norovirus negative, C. difficile toxin negative however antigen positive
Prolonged recent hospitalization at [facility]. Recently moved to [facility]
Leukopenia
Suspect secondary to infection
Monitor CBC
Chronic hypoxic respiratory insufficiency secondary to Deconditioning
Wean O2 as able.
ESRD on HD
HD schedule tomorrow
Oliguric , continue to monitor urine output
May need Griffiths's catheter
Nephrology following
Acute urinary retention
Continue to monitor UO
Paroxysmal a-fib
continue amiodarone
Eliquis remains held as Hb stabilizes
herpes zoster
rash under left breast that round to left back, some appear to be getting better
continue valacyclovir x 10 days per ID; precautions
hyperlipidemia
continue rosuvastatin
Hx c-diff colitis
continue PO Vanco
continue probiotics
osteoarthritis
Chronic wounds
- L anterior upper thigh full thickness wound to subcutaneous layer, pink that can be visualized, undermines medially about 3cm, mod-large amount of murky serous drainage. Skin mild red around wound suspect r/t moisture.
- L medial upper thigh with a linear dermal ulcer suspect from rubbing and previous diaper use.
- Sacral crease stage 2 pressure injury along with MASD
- bilateral sacral buttocks stage 2 pressure injuries along with MASD.
- Perineal MASD.
- L medial posterior thigh linear red ecchymotic area.
- Small abrasions on R posterior ankle/calf. Heels slow to libby red/boggy.
- L anterior, lateral and posterior chest/back with scattered zoster lesions.
- follow wound care recs
Code status: DNR
DVT Prophylaxis: heparin
Anticipated Discharge: > 48 hours
Subjective/Interval History
-
Date of Service: June 08, 2024
No overnight events
Objective Data
-
Labs:
Laboratory Results
06/08/24
04:39
WBC 1.9 L*
Hgb 8.4 L
Hct 28.5 L
Plt Count 118 L
Sodium 138
Potassium 3.7
Chloride 105
Carbon Dioxide 32 H
BUN 5 L
Creatinine 1.1 H
Glucose 77
Calcium 8.4
Vital Signs:
Vital Signs
Temp Pulse Resp BP Pulse Ox
98.0 F 76 22 123/61 97
06/08/24 07:39 06/08/24 09:09 06/08/24 07:50 06/08/24 09:09 06/08/24 07:50
I&O
06/07/24 06/08/24 06/09/24
06:59 06:59 06:59
Intake Total 240 / 240 240 / 240
Output Total 350 / 350
Balance 240 / 240 -110 / -110
Review of Systems
-
All other systems: Reviewed and negative
Physical Exam
-
General: No Apparent Distress and Comfortable
HEENT: Normocephalic and Atraumatic
Respiratory: Clear to Auscultation
Cardiac: Regular Rhythm and S1/S2
GI: Soft, Nontender, Nondistended and Normal Bowel Sounds
Skin: Other (Right IJ catheter)
Neuro: AO x 3
Psych: Calm
Data Reviewed
-
Labs: Labs Reviewed by me and Discussed with Physician
--- NOTE | 2024-06-08 12:50 | W.PN.NEPH.PH ---
Today's Communication / Plan
-
HD tomorrow
Assessment/Plan
-
Assessment:
Enterobacter bacteremia/GNR - Panresistant
Intertrigo
Hypotension on midodrine
?ESRD on HD-MWF
Anemia -GIB
Chronic hypoxic respiratory insufficiency suspect related to chronic hospitalization, deconditioning
acute urinary retention
Asymptomatic bacteruria
parox a-fib
herpes zoster
hyperlipidemia
Hx c-diff colitis
osteoarthritis
Chronic wounds
Plan:
Emterobactor bacteremia -MRDO
on Aztreonam, Avibactam and Diflucan per ID
remains with temp HD catheter, plan tunneled catheter when ok with ID
hypotension-improving on high dose midodrine , echo and cortisol were ok
Remains on oral vancomycin for colonizing
Patient with significant hypoalbuminemia of 2.2 affecting effective circulating volume and with subsequent hemodynamic instability
Next dialysis will be tomorrow off schedule for the holiday
cr seem low but increases pre HD and oligoanuric , follow bladder scan
-
-
Date of Service: June 08, 2024
CC / HPI / ROS
-
Chief Complaint:
ESRD
History of Present Illness:
BP stable on midodrine 20mg q8
Continued antibiotic for Enterobacter bacteremia
ESRD on chronic Saturday, off schedule this week
no fever, WBC low 1.9, hb 8.4
Review of Systems:
No chest pain or shortness of breath
no n/v
SC once this am
Labs
-
Labs:
WBC 1.9 10^3/uL (4.8-10.8) L* 06/08/24 04:39
RBC 2.84 10^6/uL (4.20-5.40) L 06/08/24 04:39
Hgb 8.4 g/dL (12.0-16.0) L 06/08/24 04:39
Hct 28.5 % (37.0-47.0) L 06/08/24 04:39
Plt Count 118 10^3/uL (130-400) L 06/08/24 04:39
Sodium 138 mmol/L (135-145) 06/08/24 04:39
Potassium 3.7 mmol/L (3.5-5.1) 06/08/24 04:39
Chloride 105 mmol/L (98-107) 06/08/24 04:39
Carbon Dioxide 32 mmol/L (22-30) H 06/08/24 04:39
BUN 5 mg/dl (7-17) L 06/08/24 04:39
Creatinine 1.1 mg/dL (0.6-1.0) H 06/08/24 04:39
eGFR 53.39 06/08/24 04:39
Glucose 77 mg/dl (70-99) 06/08/24 04:39
Calcium 8.4 mg/dl (8.4-10.2) 06/08/24 04:39
Albumin 2.2 g/dl (3.5-5.0) L 05/26/24 16:18
Physical Exam
-
Vital Signs:
Vital Signs
Temp Pulse Resp BP Pulse Ox
98.0 F 76 22 123/61 97
06/08/24 07:39 06/08/24 09:09 06/08/24 07:50 06/08/24 09:09 06/08/24 07:50
Cardiovascular:: Regular rate and rhythm
Respiratory:: Bilateral: CTA (anteriolry)
Lung Excursion:: Normal
Abdomen:: Nontender and Soft
Extremity Edema:: +1: Bilateral:
Griffiths Catheter: No
--- NOTE | 2024-06-08 16:20 | PTCARENOTE ---
Assumed care of pt this am after morning rounds. Pt is awake, alert and oriented. She has no complaints this am. Daughter is at bedside throughout the morning and getting updates on plan of care for pt. Received her with oxygen 1L NC. resp rate
even, reg. pulse ox 94%. Lung sounds with diminished bases. Pt does assist in turning self but has not been OOB recently. PT has been ordered. Pt has multiple wounds from Shingles, some scabbed, some open with pink wound beds. Sacrum with stage 2
and MASD. Appetite is poor but pt aware of the importance of nutrition in supporting wound healing and recovery. Pt in good spirits today and no complaints except for discomfort during wound care. Antibiotics being adjusted by ID. Pt and daughter
updated on this. Complete care to pt throughout the shift.
[2024-06-08] MEDS: ELIQUIS 5 MG PO (19:25)
[2024-06-08] MEDS: FETROJA 108.4 MG IV (20:40)
[2024-06-09] VITALS (29 sets, daily range): BP systolic 90–125; BP diastolic 45–82; BMI 31.5
[2024-06-09] MEDS: ProAmatine 20 MG PO ×3 (04:41→20:02)
[2024-06-09 05:36] LABS: Blood Urea Nitrogen 9 mg/dl (7-17); Calcium 8.5 mg/dl (8.4-10.2); Carbon Dioxide 31 mmol/L (22-30); Chloride 106 mmol/L (98-107); Estimated Creatinine Clearance 35 ml/min; Glucose 78 mg/dl (70-99); Potassium 3.5 mmol/L (3.5-5.1); Sodium 139 mmol/L (135-145); eGFR 39.97
[2024-06-09 07:09] LABS: Hematocrit 26.8 % (37.0-47.0); Mean Corp Hgb Conc. 29.9 g/dL (33.0-37.0); Mean Corpuscular Hgb 29.9 pg (27.0-31.0); Mean Platelet Volume 9.7 fL (7.4-10.4); Platelet Count 143 10^3/uL (130-400); Red Blood Cell Count 2.68 10^6/uL (4.20-5.40); Red Cell Dist. Width 23.7 % (11.5-14.5); White Blood Cell Count 1.6 10^3/uL (4.8-10.8)
[2024-06-09] MEDS: SYMBICORT 160/4.5 MCG INHALER 2 PUFF INH ×2 (07:32→20:32)
[2024-06-09 07:58] LABS: % Basophils 2.5 % (0-2); % Eosinophils 8.9 % (0-6); % Immature Granulocytes 0.6 % (0-0.5); % Lymphocytes 58.9 % (20.5-51.1); % Monocytes 17.1 % (1.7-9.3); Absolute Eosinophils 0.1 10^3/uL (0-0.7); Absolute Lymphocytes 0.9 10^3/uL (1.2-3.4); Absolute Monocytes 0.3 10^3/uL (0.1-0.6); Absolute Neutrophils 0.2 10^3/uL (1.4-6.5); Nucleated Red Blood Cells % 0 %
[2024-06-09] MEDS: RETACRIT 8000 UNITS IV (09:01)
--- NOTE | 2024-06-09 09:05 | W.PN.HOSP.TC ---
Today's Communication/Plan
-
Now on IV cefedericol
No UO in the past 24 hours
Continue to monitor UO, serial bladder scans
Continue Eliquis
Downgrade to med/surg on tele
Follow CBC
Assessment / Plan
Assessment / Plan
Impression
Enterobacter bacteremia/panresistant
Intertrigo
Hypertension
End-stage renal disease on hemodialysis
Anemia with heme positive stool
leukopenia
Chronic hypoxic respiratory insufficiency secondary to deconditioning
Acute urinary retention
Paroxysmal A-fib
Herpes zoster
Hyperlipidemia
Chronic wounds
History of C. difficile colitis
Assessment and plan
Enterobacter bacteremia/panresistant
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
Switched to IV cefedericol per ID
Repeat blood cultures shows no growth
Catheter tip culture shows no growth
ID following
Intertrigo
Micafungin stopped.
Switched to 150 mg fluconazole once a week for 4 weeks
Hypotension
Suspect multifactorial
Blood pressure today 126/61-stable on midodrine TID
No active bleeding
Hemoglobin 8<8.4
Echo with normal EF, no significant valve pathology
Anemia with heme positive stool
s/p 2 unit PRBCs this hospitalization
Heme positive stool
frequent loose stools with recent C. Diff history
GI following.
Continue Eliquis
Monitor H&H
continue Protonix BID
Norovirus negative, C. difficile toxin negative however antigen positive
Prolonged recent hospitalization at [facility]. Recently moved to [facility]
Leukopenia
Suspect secondary to infection
Monitor CBC
Chronic hypoxic respiratory insufficiency secondary to Deconditioning
Wean O2 as able.
ESRD on HD
HD schedule tomorrow
Oliguric , continue to monitor urine output
May need Griffiths's catheter
Nephrology following
Acute urinary retention
S/p Griffiths catheter
No UO in the past 24 hours
continue to monitor UO, bladder scans
Hold off on Griffiths for now as the patient is at increased risk to develop infection
Paroxysmal a-fib
continue amiodarone
Eliquis remains held as Hb stabilizes
herpes zoster
rash under left breast that round to left back, some appear to be getting better
continue valacyclovir x 10 days per ID; precautions
hyperlipidemia
continue rosuvastatin
Hx c-diff colitis
continue PO Vanco
continue probiotics
osteoarthritis
Chronic wounds
- L anterior upper thigh full thickness wound to subcutaneous layer, pink that can be visualized, undermines medially about 3cm, mod-large amount of murky serous drainage. Skin mild red around wound suspect r/t moisture.
- L medial upper thigh with a linear dermal ulcer suspect from rubbing and previous diaper use.
- Sacral crease stage 2 pressure injury along with MASD
- bilateral sacral buttocks stage 2 pressure injuries along with MASD.
- Perineal MASD.
- L medial posterior thigh linear red ecchymotic area.
- Small abrasions on R posterior ankle/calf. Heels slow to libby red/boggy.
- L anterior, lateral and posterior chest/back with scattered zoster lesions.
- follow wound care recs
Code status: DNR
DVT Prophylaxis: heparin
Disposition to SNF
Anticipated Discharge: > 48 hours
Subjective/Interval History
-
Date of Service: June 09, 2024
No overnight events. No urine output in the past 24 hours
Objective Data
-
Labs:
Laboratory Results
06/09/24
04:51
WBC 1.6 L*
Hgb 8.0 L
Hct 26.8 L
Plt Count 143 D
Sodium 139
Potassium 3.5
Chloride 106
Carbon Dioxide 31 H
BUN 9
Creatinine 1.4 H
Glucose 78
Calcium 8.5
Vital Signs:
Vital Signs
Temp Pulse Resp BP Pulse Ox
97.8 F 73 16 104/53 97
06/09/24 07:35 06/09/24 07:35 06/09/24 07:35 06/09/24 04:41 06/09/24 07:35
I&O
06/08/24 06/09/24 06/10/24
06:59 06:59 06:59
Intake Total 240 / 240 240 / 240
Output Total 350 / 350
Balance -110 / -110 240 / 240
Review of Systems
-
All other systems: Reviewed and negative
Physical Exam
-
General: No Apparent Distress and Comfortable
HEENT: Normocephalic and Atraumatic
Respiratory: Clear to Auscultation
Cardiac: Regular Rhythm
GI: Soft, Nontender and Nondistended
Musculoskeletal: No Edema
Neuro: AO x 3
Psych: Calm
Data Reviewed
-
Labs: Labs Reviewed by me and Discussed with Physician
[2024-06-09] MEDS: HEPARIN 2200 UNITS INTRACATH (11:10)
--- NOTE | 2024-06-09 11:31 | W.PN.ID1 ---
Date of Service
Date of Service: June 09, 2024
Today's Communication
- switched to cefideracol 06/08 due to neturopenia and sensitivites resulting as sensitive
- follow up sensitivitis of ceftaz-avibactam + aztreonam anticipated , saturday or next week from [facility]; will help determine final duration
Assessment / Plan
CRE - Enterobacter (MDRO)
Suspected HD cath source
Hypotension - possibly improving
Shingles below L breast - resolved, healing wound under the breast
ESRD on HD
Reported allergy to cephalexin (unknown)
Replaced L hip
- follow leukopenia essentially stable - if further progression will switch antibiotics to alternative (vabomere) which we have in house
- 05/29 blood cultures x2 enterobacter - CRE with resistance to avycaz and eravacycline, sensitive to cefidercol
- switched to cefideracol 06/08 due to neturopenia and sensitivites resulting as sensitive
- dosing for HD is Q12 HR with dose to be given shortly after HD, attempting to coordinate with nephrology and pharmacy, if possible, patient will remain on 7:30/8AM HD with cefideracol dosing at 12AM and 12PM to accommodate
- follow up sensitivitis of ceftaz-avibactam + aztreonam anticipated , saturday or next week from [facility]; will help determine final duration
- 05/31 Repeat blood cx's x 2 (before meropenem) - no growth to date
- HD cath removed 06/01 - cath tip culture sensitivity very low, approximately 20%; most likely source despite a negative culture
- ok for permanent HD cath
Intertrigo - markedly improved appearance
- c/w fluconazole 150 mg PO q week x4 more weeks; stop micafungin
- continue topical miconazole and zinc oxide
Colonization with C Difficile
- continue oral vanc BID given known colonization with c diff while on broad spectrum rx
- continue enhanced contact precautions for C difficile while in house; also plan to continue precautions given CRE
- follow clinically
Chief Complaint
-: Bacteremia (due to MDRO) and Other (sepsis, asymptomatic bacteruria)
Subjective / Review of Systems
afebrile
bp stable
no complaints
Vital Signs / Physical Exam
Vital Signs
Vital Signs
Temp Pulse Resp BP Pulse Ox
97.8 F 73 16 104/53 97
06/09/24 07:35 06/09/24 07:35 06/09/24 07:35 06/09/24 04:41 06/09/24 07:35
Physical Exam
Constitutional: No Acute Distress
Cardiovascular: Regular Rate
Pulmonary: Symmetric and Non Labored
Gastrointestinal: Non Distended
Neurological: Awake
Objective Data
Lab Data
Lab Results
06/09/24 04:51
06/09/24 04:51
Estimated Creat Clear 35 ml/min 06/09/24 04:51
Total Bilirubin 0.5 mg/dl (0.2-1.3) 05/26/24 16:18
AST 22 U/L (14-36) 05/26/24 16:18
ALT 26 U/L (0-35) 05/26/24 16:18
Alkaline Phosphatase 99 U/L (38-126) 05/26/24 16:18
Most recent labs reviewed.
Micro Results:
05/29/24 12:43 Blood Culture - Final
Blood/Venous Enterobacter species
Gram Stain - Final
05/29/24 12:11 Blood Culture - Final
Blood/Venous Enterobacter cloacae
Enterobacter cloacae#2
Gram Stain - Final
06/01/24 04:09 Blood Culture - Final
Blood/Venous No Growth - Final Report
06/01/24 04:09 Blood Culture - Final
Blood/Venous No Growth - Final Report
05/31/24 06:08 Blood Culture - Final
Blood/Venous No Growth - Final Report
05/31/24 06:08 Blood Culture - Final
Blood/Venous No Growth - Final Report
06/01/24 14:45 Catheter Tip Culture - Final
Dialysis Line No Growth After 72 Hours
05/26/24 17:24 Salmonella/Shigella Culture - Final
Feces/Stool No Salmonella, Shigella, Aeromonas or Plesiomonas species
isolated.
Campylobacter Culture - Final
No Campylobacter species isolated.
Shiga Toxin Test - Final
No E. coli Shiga Toxin 1 or 2 detected.
05/26/24 17:24 Urine Culture - Final
Urine Klebsiella pneumoniae
05/26/24 23:43 MRSA Screen - Final
Nose Staph aureus MRSA
05/26/24 17:24 C. difficile GDH Antigen & Toxins - Final
Feces/Stool C. difficile antigen positive, toxin negative.
Clostridium difficile present, but toxin not detected.
Patient may be a carrier, colonized with nontoxinogenic
strain or the level of toxin in sample is below detection
limits. This information should be used in conjunction with
the patient's clinical history.
- Final
Negative for Norovirus GI and GII.
05/29/24 CT a/P:
1. No CT evidence for acute retroperitoneal or intraperitoneal hemorrhage.
2. Moderate to severe bilateral renal cortical volume loss and severe scarring in the lateral cortex of the left kidney consistent with END-STAGE RENAL DISEASE.
3. Severe calcific atherosclerotic plaque in the abdominal aorta and common iliac arteries.
4. Mild splenomegaly.
5. Severe diverticulosis in the sigmoid colon.
6. Small bilateral pleural effusions with adjacent bilateral lower lobe airspace consolidation (possibly right lower lobe pneumonia).
7. Severe calcific atherosclerotic plaque in the coronary arteries and thoracic aorta.
8. Mild cardiomegaly.
9. 6.8 mm pulmonary nodule in the lateral segment of the right middle lobe (possibly infectious or inflammatory in etiology). A follow-up chest CT examination in 6-12 months is recommended
10. Moderate anasarca.
11. Moderate to severe paraspinal and pelvic muscle atrophy.
12. Severe discogenic degenerative disease at L4/L5 and L5/S1.
Care Review
Plan reviewed with: Physician (Dr Javed - timing of HD and cefideracol)
--- NOTE | 2024-06-09 11:59 | W.PN.NEPH.HD ---
Assessment
-
pt seen during HD
vitals stable
BP soft limiting UF , on high dose of midodirne
spoke with ID likely change to tunneled catheter later this week
Progress Note - Hemodialysis
-
Date of Service: June 09, 2024
Duration: 30 minutes and 3 hours
Potassium Bath: 3
Calcium Bath: 2.5
Opti-Dialyzer: 160
Ultrafiltration: Other (1kg)
Blood Flow: 400
Dialysate Flow: 600
Heparin: no
EPO: 8000
[2024-06-09] MEDS: CRESTOR 5 MG PO (12:39)
[2024-06-09] MEDS: ELIQUIS 5 MG PO ×2 (12:39→20:00)
[2024-06-09] MEDS: FOLVITE 1 MG PO (12:40)
[2024-06-09] MEDS: PACERONE 200 MG PO (12:40)
[2024-06-09] MEDS: NEURONTIN 100 MG PO (12:40)
[2024-06-09] MEDS: SINGULAIR 10 MG PO (12:41)
[2024-06-09] MEDS: VISBIOME 2 CAP PO (12:42)
[2024-06-09] MEDS: PROTONIX IV 40 MG IV ×2 (12:43→20:01)
[2024-06-09] MEDS: DEBROX EAR DROPS 1 DROP OTIC ×2 (12:44→19:59)
[2024-06-09] MEDS: NSS (PRESERVATIVE FREE) 10 ML IV ×2 (12:44→20:01)
[2024-06-09] MEDS: LAC HYDRIN, AM LACTIN LOTION 1 APPLIC TOPICAL ×2 (12:58→20:01)
[2024-06-09] MEDS: FIRVANQ 125 MG PO ×2 (12:59→20:00)
[2024-06-09] MEDS: DESENEX/MITRAZOL/ZEASORB 1 APPLIC TOPICAL ×2 (12:59→21:36)
[2024-06-09] MEDS: ZINC OXIDE OINTMENT TOPICAL (13:00)
[2024-06-09] MEDS: FETROJA 108.4 MG IV ×2 (13:10→23:52)
[2024-06-09] MEDS: DAKIN'S SOLUTION 0.125% 1/4 STRENGTH 473 ML TOPICAL (13:14)
[2024-06-09] MEDS: FETROJA IV (13:15)
--- NOTE | 2024-06-09 15:32 | CM ---
Patient from [facility] with Hx ESRD on HD, chronic wounds. Enhanced Precautions, Contact Precautions. Per nephrology: Has temp HD catheter, plan permanent tunneled catheter. Per ID notes; await follow up Abx sensitivities.
O2 1L. Receiving IV cefideracol, PO Diflucan, PO Vanco. Dysphagia diet. Seen by wound care nurse. PT 06/04 recommends skilled rehab, OT 06/02 recommends skilled rehab.
Spoke with Adm Adriannes [facility]; possible need to return to SNF with IV cefideracol and other Abx. Will update SNF with final Abx and duration of therapy once known.
CM continuing to follow for d/c needs.
Plan return to [facility] when medically ready and insurance approves.
--- NOTE | 2024-06-09 16:24 | PTCARENOTE ---
Patient had dialysis this morning. Refused physical therapy after dialysis due to fatigue. Patient has poor appetite today, ate less than half of lunch and is sipping on ensure shake. Patient is bladder scanned every 6 hours per protocol, discussed
urine retention with medical team as patient has required straight cath in the past 24 hours. Wound care completed.
[2024-06-09] MEDS: DESENEX/MITRAZOL/ZEASORB TOPICAL (16:38)
[2024-06-09] MEDS: ZINC OXIDE OINTMENT 1 APPLIC TOPICAL ×2 (17:26→21:36)
--- NOTE | 2024-06-09 17:57 | PTCARENOTE ---
Report given to Felix POWELL for transfer to room 422. Belongings sent with patent. Patient educated about plan of care, in good spirits.
[2024-06-10] MEDS: ProAmatine 20 MG PO ×3 (04:30→19:37)
[2024-06-10 06:00] VITALS: BMI 31.2
[2024-06-10 07:00] VITALS: BP 120/70
[2024-06-10] MEDS: FIRVANQ 125 MG PO ×2 (08:02→19:34)
[2024-06-10] MEDS: PACERONE 200 MG PO (08:02)
[2024-06-10] MEDS: CRESTOR 5 MG PO (08:03)
[2024-06-10] MEDS: SINGULAIR 10 MG PO (08:03)
[2024-06-10] MEDS: FOLVITE 1 MG PO (08:04)
[2024-06-10] MEDS: VISBIOME 2 CAP PO (08:04)
[2024-06-10] MEDS: NEURONTIN 100 MG PO (08:04)
[2024-06-10] MEDS: PROTONIX IV 40 MG IV ×2 (08:05→19:35)
[2024-06-10] MEDS: ELIQUIS 5 MG PO ×2 (08:05→19:34)
[2024-06-10] MEDS: NSS (PRESERVATIVE FREE) 10 ML IV ×2 (08:06→19:34)
[2024-06-10] MEDS: SYMBICORT 160/4.5 MCG INHALER 2 PUFF INH ×2 (08:09→20:06)
[2024-06-10] MEDS: DAKIN'S SOLUTION 0.125% 1/4 STRENGTH 473 ML TOPICAL (08:13)
[2024-06-10] MEDS: ZINC OXIDE OINTMENT 1 APPLIC TOPICAL ×3 (08:13→19:36)
[2024-06-10] MEDS: DESENEX/MITRAZOL/ZEASORB 1 APPLIC TOPICAL ×3 (08:14→19:36)
[2024-06-10] MEDS: LAC HYDRIN, AM LACTIN LOTION 1 APPLIC TOPICAL ×2 (08:14→19:37)
[2024-06-10] MEDS: DEBROX EAR DROPS 1 DROP OTIC ×2 (08:15→19:35)
[2024-06-10 08:27] LABS: Blood Urea Nitrogen 5 mg/dl (7-17); Calcium 8.4 mg/dl (8.4-10.2); Carbon Dioxide 31 mmol/L (22-30); Chloride 103 mmol/L (98-107); Estimated Creatinine Clearance 38 ml/min; Glucose 75 mg/dl (70-99); Potassium 3.4 mmol/L (3.5-5.1); Sodium 138 mmol/L (135-145); eGFR 43.69
[2024-06-10 08:32] LABS: Hematocrit 28.7 % (37.0-47.0); Hemoglobin 8.6 g/dL (12.0-16.0); Mean Platelet Volume 9.7 fL (7.4-10.4); Platelet Count 159 10^3/uL (130-400); Red Blood Cell Count 2.87 10^6/uL (4.20-5.40); Red Cell Dist. Width 23.7 % (11.5-14.5); White Blood Cell Count 1.8 10^3/uL (4.8-10.8)
[2024-06-10 10:35] LABS: % Basophils 2.2 % (0-2); % Eosinophils 8.2 % (0-6); % Lymphocytes 57.9 % (20.5-51.1); % Monocytes 15.8 % (1.7-9.3); % Neutrophils 15.9 % (42.2-75.2); Absolute Eosinophils 0.2 10^3/uL (0-0.7); Absolute Lymphocytes 1.1 10^3/uL (1.2-3.4); Absolute Monocytes 0.3 10^3/uL (0.1-0.6); Nucleated Red Blood Cells % 0 %
[2024-06-10 10:44] LABS: Absolute Neutrophils 0.3 10^3/uL (1.4-6.5)
--- NOTE | 2024-06-10 11:04 | W.PN.HOSP.TC ---
Today's Communication/Plan
-
replacement of HD catheter later this week
Continue IV abx
Will speak to ID for possible home IV abx
Disposition to [facility] later this week once everything is set up.
Assessment / Plan
Assessment / Plan
Impression
Enterobacter bacteremia/panresistant
Intertrigo
Hypertension
End-stage renal disease on hemodialysis
Anemia with heme positive stool
leukopenia
Chronic hypoxic respiratory insufficiency secondary to deconditioning
Acute urinary retention
Paroxysmal A-fib
Herpes zoster
Hyperlipidemia
Chronic wounds
History of C. difficile colitis
Assessment and plan
Enterobacter bacteremia/panresistant
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
Continue IV cefedericol per ID, sensitivities are sensitive
Repeat blood cultures shows no growth
Catheter tip culture shows no growth
ID following
Intertrigo
Micafungin stopped.
Switched to 150 mg fluconazole once a week for 4 weeks
Hypotension
Suspect multifactorial
Blood pressure today 126/61-stable on midodrine TID
No active bleeding
Hemoglobin 8<8.4
Echo with normal EF, no significant valve pathology
Anemia with heme positive stool
s/p 2 unit PRBCs this hospitalization
Heme positive stool
frequent loose stools with recent C. Diff history
GI following.
Continue Eliquis
Monitor H&H
continue Protonix BID
Norovirus negative, C. difficile toxin negative however antigen positive
Prolonged recent hospitalization at [facility]. Recently moved to [facility]
Leukopenia
Suspect secondary to infection
Monitor CBC
Chronic hypoxic respiratory insufficiency secondary to Deconditioning
Wean O2 as able.
ESRD on HD
HD schedule tomorrow
Oliguric , continue to monitor urine output
May need Griffiths's catheter
Nephrology following
Plan to change HD catheter by end of this week. ID aware.
Acute urinary retention
S/p Griffiths catheter
No UO in the past 24 hours
continue to monitor UO, bladder scans
Hold off on Griffiths for now as the patient is at increased risk to develop infection
Paroxysmal a-fib
continue amiodarone
Eliquis remains held as Hb stabilizes
herpes zoster
rash under left breast that round to left back, some appear to be getting better
continue valacyclovir x 10 days per ID; precautions
hyperlipidemia
continue rosuvastatin
Hx c-diff colitis
continue PO Vanco
continue probiotics
osteoarthritis
Chronic wounds
- L anterior upper thigh full thickness wound to subcutaneous layer, pink that can be visualized, undermines medially about 3cm, mod-large amount of murky serous drainage. Skin mild red around wound suspect r/t moisture.
- L medial upper thigh with a linear dermal ulcer suspect from rubbing and previous diaper use.
- Sacral crease stage 2 pressure injury along with MASD
- bilateral sacral buttocks stage 2 pressure injuries along with MASD.
- Perineal MASD.
- L medial posterior thigh linear red ecchymotic area.
- Small abrasions on R posterior ankle/calf. Heels slow to libby red/boggy.
- L anterior, lateral and posterior chest/back with scattered zoster lesions.
- follow wound care recs
Code status: DNR
DVT Prophylaxis: heparin
Disposition to SNF
Anticipated Discharge: > 48 hours
Subjective/Interval History
-
Date of Service: June 10, 2024
No overnight event. Patient reports of fatigue after dialysis yesterday. She declines weakness, fatigue today.
Objective Data
-
Labs:
Laboratory Results
06/10/24
07:41
WBC 1.8 L*
Hgb 8.6 L
Hct 28.7 L
Plt Count 159
Sodium 138
Potassium 3.4 L
Chloride 103
Carbon Dioxide 31 H
BUN 5 L
Creatinine 1.3 H
Glucose 75
Calcium 8.4
Vital Signs:
Vital Signs
Temp Pulse Resp BP Pulse Ox
97.9 F 80 16 120/70 98
06/10/24 07:00 06/10/24 08:15 06/10/24 08:15 06/10/24 07:00 06/10/24 08:15
I&O
06/09/24 06/10/24 06/11/24
06:59 06:59 06:59
Intake Total 240 / 240 300 / 300
Output Total 0 / 0
Balance 240 / 240 300 / 300
Review of Systems
-
All other systems: Reviewed and negative
Physical Exam
-
General: No Apparent Distress
HEENT: Normocephalic and Atraumatic
Respiratory: Clear to Auscultation
Cardiac: Regular Rhythm
GI: Soft, Nontender and Nondistended
Neuro: AO x 3
Psych: Calm
Data Reviewed
-
Labs: Labs Reviewed by me and Discussed with Physician
[2024-06-10] MEDS: FETROJA 108.4 MG IV (12:00)
[2024-06-10] MEDS: KCL 270 MEQ IV (12:21)
[2024-06-10 15:00] VITALS: BP 115/60
--- NOTE | 2024-06-10 15:24 | W.PN.NEPH.PH ---
Today's Communication / Plan
-
change to tunneled catheter tomorrow
Assessment/Plan
-
Assessment:
Enterobacter bacteremia/GNR - Panresistant
Intertrigo
Hypotension on midodrine
?ESRD on HD-MWF
Anemia -GIB
Chronic hypoxic respiratory insufficiency suspect related to chronic hospitalization, deconditioning
acute urinary retention
Asymptomatic bacteruria
parox a-fib
herpes zoster
hyperlipidemia
Hx c-diff colitis
osteoarthritis
Chronic wounds
Plan:
Enterobactor bacteremia -MRDO
on Cefiderocol and Diflucan per ID
remains with temp HD catheter, plan tunneled catheter tomorrow, ID cleared
BP soft on high dose midodrine , echo and cortisol were ok
Remains on oral vancomycin for colonizing
Patient with significant hypoalbuminemia of 2.2 affecting effective circulating volume and with subsequent hemodynamic instability
Next dialysis will be Saturday off schedule for the holiday
cr seem low but increases pre HD and oligoanuric , follow bladder scan
replace k
-
-
Date of Service: June 10, 2024
CC / HPI / ROS
-
Chief Complaint:
ESRD
History of Present Illness:
BP stable on midodrine 20mg q8
Continued antibiotic for Enterobacter bacteremia
ESRD on chronic Saturday, off schedule this week
no fever, WBC low 1.8, hb 8.6
Review of Systems:
No chest pain or shortness of breath
no n/v
bladder scan 340cc, no UOP
Labs
-
Labs:
WBC 1.8 10^3/uL (4.8-10.8) L* 06/10/24 07:41
RBC 2.87 10^6/uL (4.20-5.40) L 06/10/24 07:41
Hgb 8.6 g/dL (12.0-16.0) L 06/10/24 07:41
Hct 28.7 % (37.0-47.0) L 06/10/24 07:41
Plt Count 159 10^3/uL (130-400) 06/10/24 07:41
Sodium 138 mmol/L (135-145) 06/10/24 07:41
Potassium 3.4 mmol/L (3.5-5.1) L 06/10/24 07:41
Chloride 103 mmol/L (98-107) 06/10/24 07:41
Carbon Dioxide 31 mmol/L (22-30) H 06/10/24 07:41
BUN 5 mg/dl (7-17) L 06/10/24 07:41
Creatinine 1.3 mg/dL (0.6-1.0) H 06/10/24 07:41
eGFR 43.69 06/10/24 07:41
Glucose 75 mg/dl (70-99) 06/10/24 07:41
Calcium 8.4 mg/dl (8.4-10.2) 06/10/24 07:41
Albumin 2.2 g/dl (3.5-5.0) L 05/26/24 16:18
Physical Exam
-
Vital Signs:
Vital Signs
Temp Pulse Resp BP Pulse Ox
97.9 F 84 16 117/65 97
06/10/24 07:00 06/10/24 12:40 06/10/24 08:15 06/10/24 12:40 06/10/24 12:55
Cardiovascular:: Regular rate and rhythm
Respiratory:: Bilateral: CTA (anteriorly)
Lung Excursion:: Normal
Abdomen:: Nontender and Soft
Extremity Edema:: +1: Bilateral:
Griffiths Catheter: No
--- NOTE | 2024-06-10 18:19 | PTCARENOTE ---
Potassium chloride 40meq IV administered for morning K of 3.4. Pt without void for shift. Bladder scanned 405ml. Straight cath'd 425ml george urine with sediment.
--- NOTE | 2024-06-10 20:41 | PTCARENOTE ---
Pt refuses q2 turns, stating 'it alberto to be on my sides.' Pt does allow staff to adjust pillows under her sides q2h but wants to remain supine.
[2024-06-10 23:30] VITALS: BP 118/62
[2024-06-11] VITALS (11 sets, daily range): BP systolic 85–135; BP diastolic 53–71; BMI 33.0
[2024-06-11] MEDS: FETROJA 108.4 MG IV ×2 (01:13→13:34)
[2024-06-11] MEDS: ProAmatine 20 MG PO ×2 (03:59→13:33)
[2024-06-11] MEDS: SYMBICORT 160/4.5 MCG INHALER 2 PUFF INH ×2 (07:51→19:37)
[2024-06-11 08:46] LABS: Hematocrit 29.3 % (37.0-47.0); Hemoglobin 8.5 g/dL (12.0-16.0); Mean Corpuscular Hgb 29.9 pg (27.0-31.0); Mean Corpuscular Volume 103.2 fL (81.0-99.0); Mean Platelet Volume 9.6 fL (7.4-10.4); Platelet Count 194 10^3/uL (130-400); Red Blood Cell Count 2.84 10^6/uL (4.20-5.40); Red Cell Dist. Width 24.1 % (11.5-14.5); White Blood Cell Count 1.8 10^3/uL (4.8-10.8)
[2024-06-11] MEDS: NEURONTIN 100 MG PO (09:06)
[2024-06-11] MEDS: VISBIOME 2 CAP PO (09:06)
[2024-06-11] MEDS: FOLVITE 1 MG PO (09:07)
[2024-06-11] MEDS: NSS (PRESERVATIVE FREE) 10 ML IV ×2 (09:07→21:38)
[2024-06-11] MEDS: SINGULAIR 10 MG PO (09:07)
[2024-06-11] MEDS: PROTONIX IV 40 MG IV ×2 (09:07→21:38)
[2024-06-11] MEDS: PACERONE 200 MG PO (09:07)
[2024-06-11] MEDS: ELIQUIS 5 MG PO ×2 (09:13→21:32)
[2024-06-11] MEDS: CRESTOR 5 MG PO (09:13)
[2024-06-11] MEDS: DEBROX EAR DROPS 1 DROP OTIC ×2 (09:15→21:32)
[2024-06-11] MEDS: ZINC OXIDE OINTMENT 1 APPLIC TOPICAL ×3 (09:15→22:01)
[2024-06-11] MEDS: DESENEX/MITRAZOL/ZEASORB 1 APPLIC TOPICAL ×3 (09:18→21:58)
[2024-06-11] MEDS: LAC HYDRIN, AM LACTIN LOTION 1 APPLIC TOPICAL ×2 (09:19→21:47)
[2024-06-11] MEDS: FIRVANQ 125 MG PO ×2 (09:36→21:36)
[2024-06-11 10:17] LABS: Anisocytosis 1+; Band Neutrophils 0 % (0-3); Eosinophils 6 % (0-6); Hypochromasia 1+; Lymphocytes 60 % (20-51); Monocytes 14 % (2-9); Myelocytes 2 % (-); Normal RBC Morphology No; Platelets Checked Yes; Polychromasia 1+; Segmented Neutrophils 18 % (42-75)
[2024-06-11 10:18] LABS: Total Cells Counted 100
[2024-06-11 10:20] LABS: Absolute Neutrophils -Man Diff 0.3 10^3/uL (1.4-6.5)
[2024-06-11 10:39] LABS: Blood Urea Nitrogen 9 mg/dl (7-17); Calcium 8.3 mg/dl (8.4-10.2); Carbon Dioxide 28 mmol/L (22-30); Chloride 107 mmol/L (98-107); Estimated Creatinine Clearance 28 ml/min; Glucose 71 mg/dl (70-99); Sodium 141 mmol/L (135-145); eGFR 29.57
--- NOTE | 2024-06-11 11:21 | W.PN.HOSP.TC ---
Addendum entered and electronically signed by Florencio Townsend DO 06/11/24 12:22:
Neutropenia. WBC 1.8 with ANC 0.3 today. Remains on neutropenic precautions. Will check vitamin B12 and folate levels. Replete if needed. If nutritional status is unremarkable, will consult hematology for consideration of G-CSF.
Original Note:
Today's Communication/Plan
-
HD catheter replacement scheduled at noon
Continue IV antibiotics
Await for sensitivities
Assessment / Plan
Assessment / Plan
Impression
Enterobacter bacteremia/panresistant
Intertrigo
Hypertension
End-stage renal disease on hemodialysis
Anemia with heme positive stool
leukopenia
Chronic hypoxic respiratory insufficiency secondary to deconditioning
Acute urinary retention
Paroxysmal A-fib
Herpes zoster
Hyperlipidemia
Chronic wounds
History of C. difficile colitis
Assessment and plan
Enterobacter bacteremia/panresistant
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
Continue IV cefedericol per ID, sensitivities are sensitive
Repeat blood cultures shows no growth
Catheter tip culture shows no growth
ID following
Intertrigo
Micafungin stopped.
Switched to 150 mg fluconazole once a week for 4 weeks
Hypotension
Suspect multifactorial
Blood pressure today 126/61-stable on midodrine TID
No active bleeding
Hemoglobin 8<8.4
Echo with normal EF, no significant valve pathology
Anemia with heme positive stool
s/p 2 unit PRBCs this hospitalization
Heme positive stool
frequent loose stools with recent C. Diff history
GI following.
Continue Eliquis
Monitor H&H
continue Protonix BID
Norovirus negative, C. difficile toxin negative however antigen positive
Prolonged recent hospitalization at [facility]. Recently moved to [facility]
Leukopenia
Suspect secondary to infection
Monitor CBC
Chronic hypoxic respiratory insufficiency secondary to Deconditioning
Wean O2 as able.
ESRD on HD
Oliguric , continue to monitor urine output
May need Griffiths's catheter
Nephrology following
Schedule for HD catheter replacement at noon.
Acute urinary retention
S/p Griffiths catheter
No UO in the past 24 hours
continue to monitor UO, bladder scans
Hold off on Griffiths for now as the patient is at increased risk to develop infection
Paroxysmal a-fib
continue amiodarone
Eliquis remains held as Hb stabilizes
herpes zoster
rash under left breast that round to left back, some appear to be getting better
continue valacyclovir x 10 days per ID; precautions
hyperlipidemia
continue rosuvastatin
Hx c-diff colitis
continue PO Vanco
continue probiotics
osteoarthritis
Chronic wounds
- L anterior upper thigh full thickness wound to subcutaneous layer, pink that can be visualized, undermines medially about 3cm, mod-large amount of murky serous drainage. Skin mild red around wound suspect r/t moisture.
- L medial upper thigh with a linear dermal ulcer suspect from rubbing and previous diaper use.
- Sacral crease stage 2 pressure injury along with MASD
- bilateral sacral buttocks stage 2 pressure injuries along with MASD.
- Perineal MASD.
- L medial posterior thigh linear red ecchymotic area.
- Small abrasions on R posterior ankle/calf. Heels slow to libby red/boggy.
- L anterior, lateral and posterior chest/back with scattered zoster lesions.
- follow wound care recs
Code status: DNR
DVT Prophylaxis: heparin
Disposition to SNF
Anticipated Discharge: > 48 hours
Subjective/Interval History
-
Date of Service: June 11, 2024
no overnight events.
Objective Data
-
Labs:
Laboratory Results
06/11/24
06:57
WBC 1.8 L*
Hgb 8.5 L
Hct 29.3 L
Plt Count 194 D
Sodium 141
Potassium 4.0
Chloride 107
Carbon Dioxide 28
BUN 9
Creatinine 1.8 H
Glucose 71
Calcium 8.3 L
Vital Signs:
Vital Signs
Temp Pulse Resp BP Pulse Ox
98.4 F 76 16 129/68 90
06/11/24 07:15 06/11/24 07:55 06/11/24 07:55 06/11/24 07:15 06/11/24 07:55
I&O
06/10/24 06/11/24 06/12/24
06:59 06:59 06:59
Intake Total 300 / 300 2002
Output Total 0 / 0 425 / 425
Balance 300 / 300 1578 / 1578
Review of Systems
-
All other systems: Reviewed and negative
Physical Exam
-
General: No Apparent Distress
HEENT: Normocephalic and Atraumatic
Respiratory: Clear to Auscultation
Cardiac: Regular Rhythm
Musculoskeletal: No Edema
Neuro: AO x 3
Psych: Calm
Data Reviewed
-
Labs: Labs Reviewed by me and Discussed with Physician
[2024-06-11 12:39] LABS: Folate > 20.0 ng/ml (2.76-20); Vitamin B12 406 pg/ml (239-931)
--- NOTE | 2024-06-11 13:00 | PTCARENOTE ---
Addendum entered by Peace Shah RN 06/11/24 15:28:
patient returned from IR s/p right tunneled catheter exchanged. dressing c/d/i. lungs clear, no sob, apical remains regular, denies pain, eager to eat. vss, will continue to monitor.
Original Note:
patient returned from IR s/p right tunneled catheter exchanged. dressing c/d/i. denies pain, eager to eat. vss, will continue to monitor.
[2024-06-11] MEDS: DAKIN'S SOLUTION 0.125% 1/4 STRENGTH 473 ML TOPICAL (13:41)
--- NOTE | 2024-06-11 14:29 | W.PN.NEPH.PH ---
Today's Communication / Plan
-
No acute need for dialysis today
dialysis tomorrow
Status post permacath replaced
Assessment/Plan
-
Assessment:
Enterobacter bacteremia/GNR - Panresistant
Intertrigo
Hypotension on midodrine
?ESRD on HD-MWF
Anemia -GIB
Chronic hypoxic respiratory insufficiency suspect related to chronic hospitalization, deconditioning
acute urinary retention
Asymptomatic bacteruria
parox a-fib
herpes zoster
hyperlipidemia
Hx c-diff colitis
osteoarthritis
Chronic wounds
Plan:
Enterobactor bacteremia -MRDO
on Cefiderocol twice daily postdialysis and Diflucan per ID
BP soft on high dose midodrine , echo and cortisol were ok
Remains on oral vancomycin for colonizing
Patient with significant hypoalbuminemia of 2.2 affecting effective circulating volume and with subsequent hemodynamic instability
Next dialysis will be Saturday off schedule for the holiday
Patient remains oliguric but poor clearance
She status post tunneled IJ catheter
Early first shift dialysis in order to get her first antibiotic dose early
-
-
Date of Service: June 11, 2024
CC / HPI / ROS
-
Chief Complaint:
ESRD
History of Present Illness:
BP stable on midodrine 20mg q8
Continued antibiotic for Enterobacter bacteremia
ESRD on chronic Saturday
Review of Systems:
No chest pain or shortness of breath
no n/v
Labs
-
Labs:
WBC 1.8 10^3/uL (4.8-10.8) L* 06/11/24 06:57
RBC 2.84 10^6/uL (4.20-5.40) L 06/11/24 06:57
Hgb 8.5 g/dL (12.0-16.0) L 06/11/24 06:57
Hct 29.3 % (37.0-47.0) L 06/11/24 06:57
Plt Count 194 10^3/uL (130-400) D 06/11/24 06:57
Sodium 141 mmol/L (135-145) 06/11/24 06:57
Potassium 4.0 mmol/L (3.5-5.1) 06/11/24 06:57
Chloride 107 mmol/L (98-107) 06/11/24 06:57
Carbon Dioxide 28 mmol/L (22-30) 06/11/24 06:57
BUN 9 mg/dl (7-17) 06/11/24 06:57
Creatinine 1.8 mg/dL (0.6-1.0) H 06/11/24 06:57
eGFR 29.57 06/11/24 06:57
Glucose 71 mg/dl (70-99) 06/11/24 06:57
Calcium 8.3 mg/dl (8.4-10.2) L 06/11/24 06:57
Albumin 2.2 g/dl (3.5-5.0) L 05/26/24 16:18
Physical Exam
-
Vital Signs:
Vital Signs
Temp Pulse Resp BP Pulse Ox
98.1 F 80 20 129/64 98
06/11/24 13:14 06/11/24 13:14 06/11/24 13:14 06/11/24 13:33 06/11/24 13:14
Cardiovascular:: Regular rate and rhythm
Respiratory:: Bilateral: CTA (anteriorly)
Lung Excursion:: Normal
Abdomen:: Nontender and Soft
Extremity Edema:: +1: Bilateral:
Griffiths Catheter: No
[2024-06-11] MEDS: CYANOCOBALAMIN 1000 MCG IM (15:23)
--- NOTE | 2024-06-11 15:40 | WOUNDNOTE ---
L THIGH (UPPER MEDIAL)
--- NOTE | 2024-06-11 15:43 | WOUNDNOTE ---
L CHEST/LOWER BREAST
--- NOTE | 2024-06-11 15:45 | WOUNDNOTE ---
[facility] RN Note: Patient reports a good appetite. Dermal sacral/buttocks ulcers improved from last week, smaller. L thigh full thickness wound smaller than last week, granular. Patient incontinent of loose brown stool. Fariba/buttocks care given.
Miconazole powder applied to yeasty red skin groin/buttocks/thigh area. Silicone border foam changed on sacral/buttocks. Skin on heels blanchable mild red and intact. Zoster lesions on back and L chest healing. Local care provided. Patient is on a
Waffle air overlay mattress. Patient turned to L lateral side lying position with help from JOHANNE Golden. Heels off bed with pillows. She has an air chair cushion. Current wound care appropriate. Discussed with SHERRY Hand. Will follow as needed.
[2024-06-11] MEDS: ProAmatine PO (21:46)
[2024-06-12 00:24] VITALS: BP 130/69
[2024-06-12] MEDS: FETROJA 108.4 MG IV ×3 (00:26→23:12)
[2024-06-12] MEDS: ProAmatine 20 MG PO ×2 (03:34→12:37)
[2024-06-12 06:00] VITALS: BMI 33.3
[2024-06-12 07:15] VITALS: BP 125/68
[2024-06-12] MEDS: SYMBICORT 160/4.5 MCG INHALER 2 PUFF INH ×2 (08:37→20:28)
[2024-06-12] MEDS: DESENEX/MITRAZOL/ZEASORB 1 APPLIC TOPICAL ×3 (09:00→23:17)
[2024-06-12] MEDS: ZINC OXIDE OINTMENT 1 APPLIC TOPICAL ×3 (09:00→23:16)
--- NOTE | 2024-06-12 09:05 | W.PN.HOSP.TC ---
Today's Communication/Plan
-
HD today
New HD access tunneled catheter in place
Replete B12
Remains on p.o. vancomycin 125 mg twice daily for C. difficile colonization
Continue IV cefiderocol- day 4
Await for cultures
Consult hematology
Assessment / Plan
Assessment / Plan
Impression
Enterobacter bacteremia/panresistant
Intertrigo
Hypertension
End-stage renal disease on hemodialysis
Macrocytic anemia
Neutropenia
Chronic hypoxic respiratory insufficiency secondary to deconditioning
Acute urinary retention
Paroxysmal A-fib
Herpes zoster
Hyperlipidemia
Chronic wounds
History of C. difficile colitis
Assessment and plan
Enterobacter bacteremia/panresistant
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
Continue IV cefedericol per ID, sensitivities are sensitive
Repeat blood cultures shows no growth
Catheter tip culture shows no growth
ID following
Intertrigo
Micafungin stopped.
Switched to 150 mg fluconazole once a week for 4 weeks
Hypotension
Suspect multifactorial
Blood pressure today 126/61-stable on midodrine TID
No active bleeding
Hemoglobin 8<8.4
Echo with normal EF, no significant valve pathology
Macrocytic anemia
B12 low
Replete B12 1000 mcg IM
Neutropenia
WBC 1.8, ANC 0.3
Consult hematology for consideration of G�CSF
Suspect secondary to infection
Monitor CBC
Chronic hypoxic respiratory insufficiency secondary to Deconditioning
Wean O2 as able.
ESRD on HD
Oliguric , continue to monitor urine output
May need Griffiths's catheter
Nephrology following
Ongoing dialysis today
Presence New permanent HD access with tunneled catheter
Acute urinary retention
S/p Griffiths catheter
No UO in the past 24 hours
continue to monitor UO, bladder scans
Hold off on Griffiths for now as the patient is at increased risk to develop infection
Paroxysmal a-fib
continue amiodarone
Eliquis remains held as Hb stabilizes
herpes zoster
rash under left breast that round to left back, some appear to be getting better
continue valacyclovir x 10 days per ID; precautions
hyperlipidemia
continue rosuvastatin
Hx c-diff colitis
continue PO Vanco 125 mg twice daily
continue probiotics
osteoarthritis
Chronic wounds
- L anterior upper thigh full thickness wound to subcutaneous layer, pink that can be visualized, undermines medially about 3cm, mod-large amount of murky serous drainage. Skin mild red around wound suspect r/t moisture.
- L medial upper thigh with a linear dermal ulcer suspect from rubbing and previous diaper use.
- Sacral crease stage 2 pressure injury along with MASD
- bilateral sacral buttocks stage 2 pressure injuries along with MASD.
- Perineal MASD.
- L medial posterior thigh linear red ecchymotic area.
- Small abrasions on R posterior ankle/calf. Heels slow to libby red/boggy.
- L anterior, lateral and posterior chest/back with scattered zoster lesions.
- follow wound care recs
Code status: DNR
DVT Prophylaxis: heparin
Disposition to SNF
Anticipated Discharge: > 48 hours
Subjective/Interval History
-
Date of Service: June 12, 2024
HD port replaced yesterday. No overnight events
Objective Data
-
Labs:
Laboratory Results
06/12/24
08:29
WBC Pending
Hgb Pending
Hct Pending
Plt Count Pending
Sodium Pending
Potassium Pending
Chloride Pending
Carbon Dioxide Pending
BUN Pending
Creatinine Pending
Glucose Pending
Calcium Pending
Vital Signs:
Vital Signs
Temp Pulse Resp BP Pulse Ox
98.4 F 78 16 125/68 95
06/12/24 07:15 06/12/24 08:42 06/12/24 08:42 06/12/24 07:15 06/12/24 08:42
I&O
06/11/24 06/12/24 06/13/24
06:59 06:59 06:59
Intake Total 2002 1548.4 / 1548.4
Output Total 425 / 425 500 / 500
Balance 1578 / 1578 1048.4 / 1048.4
Review of Systems
-
All other systems: Reviewed and negative
Constitutional: Denies No Symptoms
Physical Exam
-
General: No Apparent Distress
HEENT: Normocephalic and Atraumatic
Respiratory: Clear to Auscultation
Cardiac: Regular Rhythm and S1/S2
Skin: IV Access / Catheter Site (Purplish discoloration around right HD tunneled catheter. No drainage from the site )
Neuro: AO x 3
Psych: Calm
Data Reviewed
-
Labs: Labs Reviewed by me and Discussed with Physician
[2024-06-12 09:29] LABS: Blood Urea Nitrogen 13 mg/dl (7-17); Calcium 8.4 mg/dl (8.4-10.2); Carbon Dioxide 28 mmol/L (22-30); Chloride 107 mmol/L (98-107); Potassium 3.4 mmol/L (3.5-5.1); Sodium 139 mmol/L (135-145)
[2024-06-12 09:39] LABS: Estimated Creatinine Clearance 30 ml/min; Glucose 68 mg/dl (70-99); eGFR 31.66
[2024-06-12 09:44] LABS: Hematocrit 28.4 % (37.0-47.0); Hemoglobin 8.6 g/dL (12.0-16.0); Mean Corp Hgb Conc. 30.3 g/dL (33.0-37.0); Mean Corpuscular Hgb 29.9 pg (27.0-31.0); Mean Corpuscular Volume 98.6 fL (81.0-99.0); Mean Platelet Volume 9.7 fL (7.4-10.4); Platelet Count 214 10^3/uL (130-400); Red Blood Cell Count 2.88 10^6/uL (4.20-5.40); Red Cell Dist. Width 23.7 % (11.5-14.5)
--- NOTE | 2024-06-12 09:45 | CM ---
CM reviewed chart, reviewed with Resident, patient not stable for discharge. Patient for HD today. ID following patient, Hematology consulted. Patient will require insurance auth when stable to return to [facility]. CM will continue to follow
for all discharge planning needs.
Plan; [facility] SNF when stable, will need insurance auth.
[2024-06-12 09:47] LABS: White Blood Cell Count 1.7 10^3/uL (4.8-10.8)
--- NOTE | 2024-06-12 09:55 | CON.ONC ---
Impression
Impression
Enterobacter bacteremia/panresistant
Suspected HD cath source
End-stage renal disease on hemodialysis
Neutropenia, consumptive
Chronic hypoxic respiratory insufficiency secondary to deconditioning
Acute urinary retention
Paroxysmal A-fib
Herpes zoster
Hyperlipidemia
Chronic wounds
History of C. difficile colitis
Plan
Plan
Abx Tx per ID.
Usually G-CSF not used in sepsis but will try 1 dose based on the garcia resistant infection in case high WBC improves his status.
Patient History
History of Present Illness
CC: Neutropenia
HPI: 73 year old female ESRD on HD via tunneled line, recent C difficile colitis admitted for GI bleed (HgB = 6 and heme positive stool). Note recent hospitalization at [facility] (04/19- ~05/19) for septic shock due to groin abscess with
treatment complicated by C difficile, COVID and pneumonia. Her stay at rehab has been complicated by herpes zoster infection below the L breast. Patient denies dizziness, lightheadedness, chest pain, shortness of breath, abdominal pain, rectal
bleeding, and hematemesis. WBC
Past-Medical/Surgical History
Past Medical History:
chronic kidney disease on dialysis
a-fib
herpes zoster
hyperlipidemia
hypoxic respiratory failure
Hx c-diff colitis
osteoarthritis
Past Surgical History:
Left hip replacement
Patient Medication
�Medication �Instructions �Recorded �Confirmed �Last Taken �Type
acetaminophen 500 mg tablet 500 mg PO Q8HPRN PRN mild pain 05/26/24 05/26/24 Unknown History
albuterol sulfate 90 mcg/actuation 2 puff inhalation R Q6HPRN PRN 05/26/24 05/26/24 Unknown History
aerosol inhaler (Ventolin HFA) wheezing
amiodarone 200 mg tablet 200 mg PO DAILY Heart 05/26/24 05/26/24 Unknown History
Disease/Condition
apixaban 5 mg tablet (Eliquis) 5 mg PO BID Blood Clot 05/26/24 05/26/24 Unknown History
Prevention/Tx
bisacodyl 10 mg rectal suppository 10 mg MS DAILYPRN PRN if no result 05/26/24 05/26/24 Unknown History
from mom
brompheniramine-phenylephrine 2 5 ml PO Q4HPRN PRN cough/congestion 05/26/24 05/26/24 Unknown History
mg-5 mg/5 mL oral liquid
ferrous gluconate 324 mg (38 mg 324 mg PO Q48H Supplement 05/26/24 05/26/24 Unknown History
iron) tablet
folic acid 1 mg tablet 1 mg PO DAILY Supplement 05/26/24 05/26/24 Unknown History
gabapentin 100 mg capsule 100 mg PO DAILY Pain 05/26/24 05/26/24 Unknown History
magnesium hydroxide 400 mg/5 mL 30 ml PO [id number] PRN no bm 3 days 05/26/24 05/26/24 Unknown History
oral suspension (Milk of Magnesia)
melatonin 5 mg tablet 5 mg PO HS Sleep 05/26/24 05/26/24 Unknown History
miconazole nitrate 2 % topical 1 applic topical TID under b/l 05/26/24 05/26/24 Unknown History
powder breast,groin,ab
midodrine 10 mg tablet 10 mg PO TID Blood Pressure 05/26/24 05/26/24 Unknown History
mometasone-formoterol HFA 200 2 puff inhalation R BID 05/26/24 05/26/24 Unknown History
mcg-5 mcg/actuation aerosol Lung/Breathing Issues
inhaler (Dulera)
montelukast 10 mg tablet 10 mg PO DAILY Allergies 05/26/24 05/26/24 Unknown History
pantoprazole 40 mg tablet,delayed 40 mg PO DAILY Gastrointestinal 05/26/24 05/26/24 Unknown History
release Issue
rosuvastatin 5 mg tablet 5 mg PO DAILY High Cholesterol 05/26/24 05/26/24 Unknown History
valacyclovir 500 mg tablet 500 mg PO DAILY Infection 05/26/24 05/26/24 Unknown History
zinc oxide 10 % topical cream 1 applic topical DAILYPRN PRN 05/26/24 05/26/24 Unknown History
soilage
zinc oxide 10 % topical cream 1 applic topical TID WOUND CARE 05/26/24 05/26/24 Unknown History
Active Medications
Generic Name Dose Route Start Last Admin
Trade Name Freq PRN Reason Stop Dose Admin
Acetaminophen 500 mg 05/26/24 21:12 06/01/24 05:44
Acetaminophen 500 Mg Tablet PO 06/23/24 21:11 500 mg
Q8HPRN PRN Administration
mild pain
Amiodarone HCl 200 mg 05/27/24 08:00 06/11/24 09:07
Amiodarone 200 Mg Tablet PO 06/24/24 07:59 200 mg
DAILY COLE Administration
Ammonium Lactate 0 applic 06/07/24 20:00 06/11/24 21:47
Ammonium Lactate 12% (Lotion) 240 Ml Bottle TOPICAL 07/05/24 19:59 1 applic
BID COLE Administration
Apixaban 5 mg 06/08/24 20:00 06/11/24 21:32
Apixaban (Eliquis) 5 Mg Tablet PO 07/06/24 19:59 5 mg
BID COLE Administration
Bisacodyl 10 mg 05/26/24 21:12
Bisacodyl 10 Mg Rectal Suppository RECTAL 06/23/24 21:11
[id number] PRN
constipation
Budesonide/Formoterol Fumarate 2 puff 05/26/24 21:30 06/12/24 08:37
Symbicort Inhaler 160/4.5 INH 06/23/24 21:29 2 puff
R BID COLE Administration
Carbamide Peroxide 0 drop 05/28/24 10:00 06/11/24 21:32
Carbamide Peroxide 6.5% (Otic Solution) 15 Ml Bottle OTIC 06/25/24 09:59 1 drop
BID COLE Administration
Cyanocobalamin 1,000 mcg 06/11/24 14:00 06/11/24 15:23
Cyanocobalamin (1000 Mcg/Ml) 1 Ml Vial IM 07/09/24 13:59 1,000 mcg
DAILY COLE Administration
Fluconazole 150 mg 06/14/24 08:00
Fluconazole 150 Mg Tablet PO 07/05/24 08:01
WEEKLY COLE
Folic Acid 1 mg 05/27/24 08:00 06/11/24 09:07
Folic Acid 1 Mg Tablet PO 06/24/24 07:59 1 mg
DAILY COLE Administration
Gabapentin 100 mg 05/27/24 08:00 06/11/24 09:06
Gabapentin 100 Mg Capsule PO 06/24/24 07:59 100 mg
DAILY COLE Administration
Cefiderocol 750 mg/ Sodium 108.4 mls @ 40.8 mls/hr 06/09/24 12:00 06/12/24 00:26
Chloride IV 108.4 mls
Q12H COLE Administration
Lactobacillus/Bifidobacterium 2 cap 05/27/24 13:00 06/11/24 09:06
Lactobac/Bifidobac (Visbiome) PO 06/24/24 12:59 2 cap
DAILY COLE Administration
Mannitol 12.5 grams 06/12/24 08:00
Mannitol 25% (12.5 Grams/50 Ml) Vial IV 06/12/24 23:59
HD-Q1HPRN PRN
SBP < 90 mmHg
Miconazole Nitrate 0 applic 05/26/24 22:00 06/11/24 21:58
Miconazole Powder Bottle TOPICAL 06/23/24 21:59 1 applic
TID COLE Administration
Midodrine 20 mg 05/28/24 12:00 06/12/24 03:34
Midodrine 5 Mg Tablet PO 06/25/24 11:59 20 mg
Q8H COLE Administration
Montelukast Sodium 10 mg 05/27/24 08:00 06/11/24 09:07
Montelukast Sodium 10 Mg Tablet PO 06/24/24 07:59 10 mg
DAILY COLE Administration
Pantoprazole Sodium 40 mg 05/27/24 08:00 06/11/24 21:38
Pantoprazole Sodium 40 Mg/10 Ml Vial IV 06/24/24 07:59 40 mg
BID COLE Administration
Polyethylene Glycol 17 grams 05/26/24 21:12
Polyethylene Glycol Powder 17 Grams Packet PO 06/23/24 21:11
DAILYPRN PRN
constipation
Rosuvastatin Calcium 5 mg 05/27/24 08:00 06/11/24 09:13
Rosuvastatin (Crestor) 5 Mg Tablet PO 06/24/24 07:59 5 mg
DAILY COLE Administration
Senna/Docusate Sodium 1 tablet 05/26/24 21:12
Docusate W/Senna (Fariba-Colace) Tablet PO 06/23/24 21:11
BIDPRN PRN
constipation
Simethicone 80 mg 06/07/24 19:54 06/07/24 20:54
Simethicone 80 Mg Chewable Tablet PO 07/05/24 19:53 80 mg
TIDPRN PRN Administration
bloat/gas pain
Sodium Chloride 10 ml 05/27/24 08:00 06/11/24 21:38
Sodium Chloride 0.9% (Preservative Free) 10 Ml Vial IV 06/24/24 07:59 10 ml
BID COLE Administration
Sodium Chloride 0 flush 05/26/24 20:00 05/29/24 16:38
Sodium Chloride 0.9% (Flush) Syringe IV 06/23/24 19:59 2 flush
PER PROTOCOL COLE Administration
Sodium Hypochlorite 0 ml 05/28/24 08:00 06/11/24 13:41
Dakin's Solution 0.125% (1/4 Strength) 473 Ml Bottle TOPICAL 06/25/24 07:59 473 ml
DAILY COLE Administration
Vancomycin HCl 125 mg 06/11/24 20:00 06/11/24 21:36
Vancomycin Oral Solution 50 Mg/Ml In Oral Syringe PO 125 mg
BID COLE Administration
Zinc Oxide 1 applic 05/26/24 22:00 06/11/24 22:01
Zinc Oxide 20% (Ointment) 30 Gram Tube TOPICAL 06/23/24 21:59 1 applic
TID COLE Administration
Zinc Oxide 1 applic 05/26/24 21:12
Zinc Oxide 20% (Ointment) 30 Gram Tube TOPICAL
DAILYPRN PRN
soilage
Physical Exam
-
General: Comfortable and Appears Chronically Ill; Negative Respiratory Distress
HEENT: Negative Jaundice
Cardiology: S1 and S2
Pulmonary: Clear
Extremities: No C/C/E
Labs
Lab Results
WBC 1.7 10^3/uL (4.8-10.8) L* 06/12/24 08:29
RBC 2.88 10^6/uL (4.20-5.40) L 06/12/24 08:29
Hgb 8.6 g/dL (12.0-16.0) L 06/12/24 08:29
Hct 28.4 % (37.0-47.0) L 06/12/24 08:29
MCV 98.6 fL (81.0-99.0) 06/12/24 08:29
MCH 29.9 pg (27.0-31.0) 06/12/24 08:29
MCHC 30.3 g/dL (33.0-37.0) L 06/12/24 08:29
RDW 23.7 % (11.5-14.5) H 06/12/24 08:29
Plt Count 214 10^3/uL (130-400) 06/12/24 08:29
MPV 9.7 fL (7.4-10.4) 06/12/24 08:29
Abs Immat Gran (auto) 0.0 10^3/uL (0-0.05) 06/10/24 07:41
Absolute Neuts (auto) 0.3 10^3/uL (1.4-6.5) L* 06/10/24 07:41
Absolute Lymphs (auto) 1.1 10^3/uL (1.2-3.4) L 06/10/24 07:41
Absolute Monos (auto) 0.3 10^3/uL (0.1-0.6) 06/10/24 07:41
Absolute Eos (auto) 0.2 10^3/uL (0-0.7) 06/10/24 07:41
Absolute Basos (auto) 0.0 10^3/uL (0-0.2) 06/10/24 07:41
Immature Gran % 0.0 % (0-0.5) 06/10/24 07:41
Neutrophils % 15.9 % (42.2-75.2) L 06/10/24 07:41
Lymphocytes % 57.9 % (20.5-51.1) H 06/10/24 07:41
Monocytes % 15.8 % (1.7-9.3) H 06/10/24 07:41
Eosinophils % 8.2 % (0-6) H 06/10/24 07:41
Basophils % 2.2 % (0-2) H 06/10/24 07:41
Creatinine 1.7 mg/dL (0.6-1.0) H 06/12/24 08:29
Vital Signs
Vital Signs
Temp Pulse Resp BP Pulse Ox
98.4 F 78 16 125/68 95
06/12/24 07:15 06/12/24 08:42 06/12/24 08:42 06/12/24 07:15 06/12/24 08:42
--- NOTE | 2024-06-12 11:00 | W.PN.NEPH.HD ---
Assessment
-
Seen on HD. no complaints. VSS, access ok
new tunnelled HD CVC in place
Progress Note - Hemodialysis
-
Date of Service: June 12, 2024
Duration: 30 minutes and 3 hours
Potassium Bath: 3
Calcium Bath: 2.5
Opti-Dialyzer: 160
Ultrafiltration: Other (2kg)
Blood Flow: 400
Dialysate Flow: 600
Heparin: no
EPO: no
--- NOTE | 2024-06-12 11:11 | W.PN.ID1 ---
Date of Service
Date of Service: June 12, 2024
Today's Communication
will need a two week course of effective rx final duration pending sensitivites on the ceftaz/shaylee/aztreonam combination anticipated next week; continue cefideracol
appreciate hematology input
follow clinically
Assessment / Plan
Leukopenia and neutropenia - persistent
CRE - Enterobacter (MDRO) Bacteremia
Suspected HD cath source
Hypotension - possibly improving
Shingles below L breast - resolved, healing wound under the breast
ESRD on HD
Reported allergy to cephalexin (unknown)
Replaced L hip
- follow leukopenia, appreciate hematology evaluation; there is no known effective alternative to cefiderocol. Leukopenia/neutropenia developed on ceftazidime/avibactam/aztreonam
- 05/29 blood cultures x2 enterobacter - CRE with resistance to avycaz and eravacycline, sensitive to cefidercol
- switched to cefideracol 06/08 due to neturopenia and sensitivities resulting as sensitive
- dosing for HD is Q12 HR with dose to be given shortly after HD, attempting to coordinate with nephrology and pharmacy, if possible, patient will remain on 7:30/8AM HD with cefideracol dosing at 12AM and 12PM to accommodate
- follow up sensitivities of ceftaz-avibactam + aztreonam anticipated next week from [facility]; will help determine final duration; plan a course of two weeks of effective treatment
- 05/31 Repeat blood cx's x 2 (before meropenem) - no growth to date
- HD cath removed 06/01 - cath tip culture sensitivity very low, approximately 20%; most likely source despite a negative culture
- has permanent HD cath
- enhanced contact precautions
Intertrigo - markedly improved appearance
- c/w fluconazole 150 mg PO q week x4 weeks total
- continue topical miconazole and zinc oxide
Colonization with C Difficile
- continue oral vanc BID given known colonization with c diff while on broad spectrum rx
- continue enhanced contact precautions for C difficile while in house; also plan to continue precautions given CRE
- follow clinically
Chief Complaint
-: Bacteremia (due to MDRO) and Other (sepsis, asymptomatic bacteruria)
Subjective / Review of Systems
afebrile
bp stable
tolerating current therapies
no complaints
seen on HD
Vital Signs / Physical Exam
Vital Signs
Vital Signs
Temp Pulse Resp BP Pulse Ox
98.4 F 78 16 125/68 95
06/12/24 07:15 06/12/24 08:42 06/12/24 08:42 06/12/24 07:15 06/12/24 08:42
Physical Exam
Constitutional: No Acute Distress
Cardiovascular: Regular Rate and S1/S2; Negative Murmur or Rub
Pulmonary: Clear and Symmetric; Negative Wheezes or Rales
Gastrointestinal: Soft, Non Tender, Non Distended and Normal Bowel Sounds
Skin: Warm and Dry; Negative Rash or Jaundice
Lines: HD Cath
Objective Data
Lab Data
Lab Results
06/12/24 08:29
06/12/24 08:29
Estimated Creat Clear 30 ml/min 06/12/24 08:29
Total Bilirubin 0.5 mg/dl (0.2-1.3) 05/26/24 16:18
AST 22 U/L (14-36) 05/26/24 16:18
ALT 26 U/L (0-35) 05/26/24 16:18
Alkaline Phosphatase 99 U/L (38-126) 05/26/24 16:18
Most recent labs reviewed.
Micro Results:
05/29/24 12:43 Blood Culture - Final
Blood/Venous Enterobacter species
Gram Stain - Final
05/29/24 12:11 Blood Culture - Final
Blood/Venous Enterobacter cloacae
Enterobacter cloacae#2
Gram Stain - Final
06/01/24 04:09 Blood Culture - Final
Blood/Venous No Growth - Final Report
06/01/24 04:09 Blood Culture - Final
Blood/Venous No Growth - Final Report
05/31/24 06:08 Blood Culture - Final
Blood/Venous No Growth - Final Report
05/31/24 06:08 Blood Culture - Final
Blood/Venous No Growth - Final Report
06/01/24 14:45 Catheter Tip Culture - Final
Dialysis Line No Growth After 72 Hours
05/26/24 17:24 Salmonella/Shigella Culture - Final
Feces/Stool No Salmonella, Shigella, Aeromonas or Plesiomonas species
isolated.
Campylobacter Culture - Final
No Campylobacter species isolated.
Shiga Toxin Test - Final
No E. coli Shiga Toxin 1 or 2 detected.
05/26/24 17:24 Urine Culture - Final
Urine Klebsiella pneumoniae
05/26/24 23:43 MRSA Screen - Final
Nose Staph aureus MRSA
05/26/24 17:24 C. difficile GDH Antigen & Toxins - Final
Feces/Stool C. difficile antigen positive, toxin negative.
Clostridium difficile present, but toxin not detected.
Patient may be a carrier, colonized with nontoxinogenic
strain or the level of toxin in sample is below detection
limits. This information should be used in conjunction with
the patient's clinical history.
- Final
Negative for Norovirus GI and GII.
05/29/24 CT a/P:
1. No CT evidence for acute retroperitoneal or intraperitoneal hemorrhage.
2. Moderate to severe bilateral renal cortical volume loss and severe scarring in the lateral cortex of the left kidney consistent with END-STAGE RENAL DISEASE.
3. Severe calcific atherosclerotic plaque in the abdominal aorta and common iliac arteries.
4. Mild splenomegaly.
5. Severe diverticulosis in the sigmoid colon.
6. Small bilateral pleural effusions with adjacent bilateral lower lobe airspace consolidation (possibly right lower lobe pneumonia).
7. Severe calcific atherosclerotic plaque in the coronary arteries and thoracic aorta.
8. Mild cardiomegaly.
9. 6.8 mm pulmonary nodule in the lateral segment of the right middle lobe (possibly infectious or inflammatory in etiology). A follow-up chest CT examination in 6-12 months is recommended
10. Moderate anasarca.
11. Moderate to severe paraspinal and pelvic muscle atrophy.
12. Severe discogenic degenerative disease at L4/L5 and L5/S1.
[2024-06-12 11:14] LABS: % Basophils 1.8 % (0-2); % Monocytes 19.3 % (1.7-9.3); % Neutrophils 19.9 % (42.2-75.2); Absolute Eosinophils 0.2 10^3/uL (0-0.7); Absolute Lymphocytes 0.8 10^3/uL (1.2-3.4); Absolute Monocytes 0.3 10^3/uL (0.1-0.6); Absolute Neutrophils 0.3 10^3/uL (1.4-6.5); Nucleated Red Blood Cells % 0 %
[2024-06-12] MEDS: SINGULAIR 10 MG PO (12:24)
[2024-06-12] MEDS: PACERONE 200 MG PO (12:24)
[2024-06-12] MEDS: ELIQUIS 5 MG PO ×2 (12:24→19:36)
[2024-06-12] MEDS: FOLVITE 1 MG PO (12:24)
[2024-06-12] MEDS: CRESTOR 5 MG PO (12:25)
[2024-06-12] MEDS: NEURONTIN 100 MG PO (12:25)
[2024-06-12] MEDS: PROTONIX IV 40 MG IV ×2 (12:25→19:37)
[2024-06-12] MEDS: NSS (PRESERVATIVE FREE) 10 ML IV ×2 (12:25→19:38)
[2024-06-12] MEDS: VISBIOME 2 CAP PO (12:25)
[2024-06-12] MEDS: FIRVANQ 125 MG PO ×2 (12:26→19:37)
[2024-06-12] MEDS: CYANOCOBALAMIN 1000 MCG IM (12:26)
[2024-06-12] MEDS: DEBROX EAR DROPS 1 DROP OTIC ×2 (14:02→19:50)
[2024-06-12] MEDS: GRANIX 480 MCG SC (14:03)
[2024-06-12 15:10] VITALS: BP 118/63
[2024-06-12] MEDS: DAKIN'S SOLUTION 0.125% 1/4 STRENGTH 1 ML TOPICAL (18:00)
[2024-06-12] MEDS: LAC HYDRIN, AM LACTIN LOTION 1 APPLIC TOPICAL ×2 (18:00→19:41)
[2024-06-12] MEDS: ProAmatine PO (19:58)
[2024-06-12 23:34] VITALS: BP 115/61
[2024-06-13] MEDS: ProAmatine 20 MG PO ×3 (03:02→20:43)
[2024-06-13 06:00] VITALS: BMI 33.5
[2024-06-13 07:00] VITALS: BP 121/60
[2024-06-13] MEDS: PACERONE 200 MG PO (08:16)
[2024-06-13] MEDS: CYANOCOBALAMIN 1000 MCG IM (08:16)
[2024-06-13] MEDS: FOLVITE 1 MG PO (08:16)
[2024-06-13] MEDS: SINGULAIR 10 MG PO (08:16)
[2024-06-13] MEDS: VISBIOME 2 CAP PO (08:16)
[2024-06-13] MEDS: ELIQUIS 5 MG PO ×2 (08:16→20:41)
[2024-06-13] MEDS: CRESTOR 5 MG PO (08:16)
[2024-06-13] MEDS: NSS (PRESERVATIVE FREE) 10 ML IV ×2 (08:16→20:42)
[2024-06-13] MEDS: PROTONIX IV 40 MG IV ×2 (08:16→20:47)
[2024-06-13] MEDS: NEURONTIN 100 MG PO (08:16)
[2024-06-13] MEDS: SYMBICORT 160/4.5 MCG INHALER 2 PUFF INH ×2 (09:09→20:14)
[2024-06-13 09:39] LABS: Blood Urea Nitrogen 9 mg/dl (7-17); Calcium 8.2 mg/dl (8.4-10.2); Carbon Dioxide 29 mmol/L (22-30); Chloride 102 mmol/L (98-107); Estimated Creatinine Clearance 39 ml/min; Glucose 101 mg/dl (70-99); Potassium 3.5 mmol/L (3.5-5.1); Sodium 139 mmol/L (135-145); eGFR 43.69
[2024-06-13 09:59] LABS: % Basophils 1.4 % (0-2); % Eosinophils 6.7 % (0-6); % Immature Granulocytes 0.4 % (0-0.5); % Lymphocytes 26.9 % (20.5-51.1); % Monocytes 10.4 % (1.7-9.3); % Neutrophils 54.2 % (42.2-75.2); Absolute Basophils 0.1 10^3/uL (0-0.2); Absolute Eosinophils 0.3 10^3/uL (0-0.7); Absolute Lymphocytes 1.3 10^3/uL (1.2-3.4); Absolute Monocytes 0.5 10^3/uL (0.1-0.6); Absolute Neutrophils 2.7 10^3/uL (1.4-6.5); Hematocrit 32.5 % (37.0-47.0); Mean Corp Hgb Conc. 30.8 g/dL (33.0-37.0); Mean Corpuscular Hgb 30.3 pg (27.0-31.0); Mean Corpuscular Volume 98.5 fL (81.0-99.0); Nucleated Red Blood Cells % 0 %; Platelet Count 183 10^3/uL (130-400); Red Cell Dist. Width 23.4 % (11.5-14.5); White Blood Cell Count 4.9 10^3/uL (4.8-10.8)
[2024-06-13] MEDS: FIRVANQ 125 MG PO ×2 (10:18→20:42)
--- NOTE | 2024-06-13 11:22 | W.PN.NEPH.PH ---
Today's Communication / Plan
-
HD tomorrow
Assessment/Plan
-
Assessment:
Enterobacter bacteremia/GNR - Panresistant
Intertrigo
Hypotension on midodrine
?ESRD on HD-MWF
Anemia -GIB
Chronic hypoxic respiratory insufficiency suspect related to chronic hospitalization, deconditioning
acute urinary retention
Asymptomatic bacteruria
parox a-fib
herpes zoster
hyperlipidemia
Hx c-diff colitis
osteoarthritis
Chronic wounds
Plan:
Enterobactor bacteremia -MRDO
on Cefiderocol twice daily postdialysis and Diflucan per ID
continue high dose midodrine
HD tomorrow, holiday schedule
-
-
Date of Service: June 13, 2024
CC / HPI / ROS
-
Chief Complaint:
ESRD
History of Present Illness:
BP stable on midodrine 20mg q8
Continued antibiotic for Enterobacter bacteremia
tolerated HD yesterday
no longer neutropenic
Review of Systems:
No chest pain or shortness of breath
no n/v
Labs
-
Labs:
WBC 4.9 10^3/uL (4.8-10.8) 06/13/24 09:01
RBC 3.30 10^6/uL (4.20-5.40) L 06/13/24 09:01
Hgb 10.0 g/dL (12.0-16.0) L 06/13/24 09:01
Hct 32.5 % (37.0-47.0) L 06/13/24 09:01
Plt Count 183 10^3/uL (130-400) 06/13/24 09:01
Sodium 139 mmol/L (135-145) 06/13/24 09:01
Potassium 3.5 mmol/L (3.5-5.1) 06/13/24 09:01
Chloride 102 mmol/L (98-107) 06/13/24 09:01
Carbon Dioxide 29 mmol/L (22-30) 06/13/24 09:01
BUN 9 mg/dl (7-17) 06/13/24 09:01
Creatinine 1.3 mg/dL (0.6-1.0) H 06/13/24 09:01
eGFR 43.69 06/13/24 09:01
Glucose 101 mg/dl (70-99) H 06/13/24 09:01
Calcium 8.2 mg/dl (8.4-10.2) L 06/13/24 09:01
Albumin 2.2 g/dl (3.5-5.0) L 05/26/24 16:18
Physical Exam
-
Vital Signs:
Vital Signs
Temp Pulse Resp BP Pulse Ox
98.0 F 76 16 121/60 95
06/13/24 07:00 06/13/24 09:13 06/13/24 09:13 06/13/24 07:00 06/13/24 09:13
Cardiovascular:: Regular rate and rhythm
Respiratory:: Bilateral: Coarse
Lung Excursion:: Normal
Abdomen:: Nontender and Soft
Bowel Sounds:: Normal
Extremity Edema:: None: Bilateral:
--- NOTE | 2024-06-13 11:29 | W.PN.ID1 ---
Date of Service
Date of Service: June 13, 2024
Today's Communication
Continue antibiotics. Await send out sensitivities of isolate.
Assessment / Plan
Leukopenia and neutropenia -improved today.
CRE - Enterobacter (MDRO) Bacteremia
Suspected HD cath source
Hypotension - possibly improving
Shingles below L breast - resolved, healing wound under the breast
ESRD on HD
Reported allergy to cephalexin (unknown)
Replaced L hip
- follow leukopenia, appreciate hematology evaluation; there is no known effective alternative to cefiderocol. Leukopenia/neutropenia developed on ceftazidime/avibactam/aztreonam
- 05/29 blood cultures x2 enterobacter - CRE with resistance to avycaz and eravacycline, sensitive to cefidercol
- switched to cefideracol 06/08 due to neturopenia and sensitivities resulting as sensitive
- dosing for HD is Q12 HR with dose to be given shortly after HD, attempting to coordinate with nephrology and pharmacy, if possible, patient will remain on 7:30/8AM HD with cefideracol dosing at 12AM and 12PM to accommodate
- follow up sensitivities of ceftaz-avibactam + aztreonam anticipated next week from [facility]; will help determine final duration; plan a course of two weeks of effective treatment
- 05/31 Repeat blood cx's x 2 (before meropenem) - no growth to date
- HD cath removed 06/01 - cath tip culture sensitivity very low, approximately 20%; most likely source despite a negative culture
- has permanent HD cath
- enhanced contact precautions
Intertrigo
- c/w fluconazole 150 mg PO q week x4 weeks total
- continue topical miconazole and zinc oxide
Colonization with C Difficile
- continue oral vanc BID given known colonization with c diff while on broad spectrum rx
- continue enhanced contact precautions for C difficile while in house; also plan to continue precautions given CRE
- follow clinically
Chief Complaint
-: Bacteremia (due to MDRO) and Other (sepsis, asymptomatic bacteruria)
Subjective / Review of Systems
Review of Systems: No Fever and No Chills
Vital Signs / Physical Exam
Vital Signs
Vital Signs
Temp Pulse Resp BP Pulse Ox
98.0 F 76 16 121/60 95
06/13/24 07:00 06/13/24 09:13 06/13/24 09:13 06/13/24 07:00 06/13/24 09:13
Physical Exam
Constitutional: No Acute Distress
Pulmonary: Clear and Non Labored
Gastrointestinal: Non Distended
Skin: Negative Rash or Jaundice
Neurological: Awake, Alert and Oriented
Psychological: Calm
Lines: HD Cath
Objective Data
Lab Data
Lab Results
06/13/24 09:01
06/13/24 09:01
Estimated Creat Clear 39 ml/min 06/13/24 09:01
Total Bilirubin 0.5 mg/dl (0.2-1.3) 05/26/24 16:18
AST 22 U/L (14-36) 05/26/24 16:18
ALT 26 U/L (0-35) 05/26/24 16:18
Alkaline Phosphatase 99 U/L (38-126) 05/26/24 16:18
Most recent labs reviewed.
Micro Results:
05/29/24 12:43 Blood Culture - Final
Blood/Venous Enterobacter species
Gram Stain - Final
05/29/24 12:11 Blood Culture - Final
Blood/Venous Enterobacter cloacae
Enterobacter cloacae#2
Gram Stain - Final
06/01/24 04:09 Blood Culture - Final
Blood/Venous No Growth - Final Report
06/01/24 04:09 Blood Culture - Final
Blood/Venous No Growth - Final Report
05/31/24 06:08 Blood Culture - Final
Blood/Venous No Growth - Final Report
05/31/24 06:08 Blood Culture - Final
Blood/Venous No Growth - Final Report
06/01/24 14:45 Catheter Tip Culture - Final
Dialysis Line No Growth After 72 Hours
05/26/24 17:24 Salmonella/Shigella Culture - Final
Feces/Stool No Salmonella, Shigella, Aeromonas or Plesiomonas species
isolated.
Campylobacter Culture - Final
No Campylobacter species isolated.
Shiga Toxin Test - Final
No E. coli Shiga Toxin 1 or 2 detected.
05/26/24 17:24 Urine Culture - Final
Urine Klebsiella pneumoniae
05/26/24 23:43 MRSA Screen - Final
Nose Staph aureus MRSA
05/26/24 17:24 C. difficile GDH Antigen & Toxins - Final
Feces/Stool C. difficile antigen positive, toxin negative.
Clostridium difficile present, but toxin not detected.
Patient may be a carrier, colonized with nontoxinogenic
strain or the level of toxin in sample is below detection
limits. This information should be used in conjunction with
the patient's clinical history.
- Final
Negative for Norovirus GI and GII.
05/29/24 CT a/P:
1. No CT evidence for acute retroperitoneal or intraperitoneal hemorrhage.
2. Moderate to severe bilateral renal cortical volume loss and severe scarring in the lateral cortex of the left kidney consistent with END-STAGE RENAL DISEASE.
3. Severe calcific atherosclerotic plaque in the abdominal aorta and common iliac arteries.
4. Mild splenomegaly.
5. Severe diverticulosis in the sigmoid colon.
6. Small bilateral pleural effusions with adjacent bilateral lower lobe airspace consolidation (possibly right lower lobe pneumonia).
7. Severe calcific atherosclerotic plaque in the coronary arteries and thoracic aorta.
8. Mild cardiomegaly.
9. 6.8 mm pulmonary nodule in the lateral segment of the right middle lobe (possibly infectious or inflammatory in etiology). A follow-up chest CT examination in 6-12 months is recommended
10. Moderate anasarca.
11. Moderate to severe paraspinal and pelvic muscle atrophy.
12. Severe discogenic degenerative disease at L4/L5 and L5/S1.
[2024-06-13] MEDS: DAKIN'S SOLUTION 0.125% 1/4 STRENGTH 1 ML TOPICAL (12:49)
[2024-06-13] MEDS: DEBROX EAR DROPS 1 DROP OTIC ×2 (12:50→20:41)
[2024-06-13] MEDS: ZINC OXIDE OINTMENT 1 APPLIC TOPICAL ×3 (12:51→20:49)
[2024-06-13] MEDS: DESENEX/MITRAZOL/ZEASORB 1 APPLIC TOPICAL ×3 (12:51→20:49)
[2024-06-13] MEDS: LAC HYDRIN, AM LACTIN LOTION 1 APPLIC TOPICAL ×2 (12:51→20:42)
[2024-06-13] MEDS: FETROJA 108.4 MG IV ×2 (13:06→23:24)
--- NOTE | 2024-06-13 14:04 | W.PN.HOSP.TC ---
Today's Communication/Plan
-
Continue IV cefiderocol
Await send out cultures of isolate
Trend CBC, daily B12
Next dialysis session Saturday
Assessment / Plan
Assessment / Plan
#CRE bacteremia with Enterobacter
-Suspected source was previous HD access; has since been replaced
-Was started on broad-spectrum IV antibiotics though culture showing garcia resistance
-Has ultimately been escalated to IV cefiderocol 750 mg every 12 hours
-Repeat blood cultures have shown no growth; awaiting send out cultures of isolate
-Had leukopenia which is now stable; clinically appears well
-Continue IV cefiderocol, follow-up send out cultures
-Continue to trend CBC and temperature curve
#Leukopenia
#Absolute neutropenia
-Likely consumptive with bacteremia; B12 level was slightly low however
-Has been started on B12 supplementation; hematology stated no role for G-CSF
-Trend CBC and ANC count
-Neutropenic precautions
#Intertrigo
-Currently on fluconazole 150 mg once weekly for 4-week course
#Hypotension
-Unclear cause though chronic in nature; Home medications include midodrine
-Echocardiogram here was normal with preserved LVEF and no significant other findings
-Continue on home regimen and monitor vital
#ESRD
-Oliguric, currently on HD every Saturday/Saturday/Saturday
-Unclear etiology; C/B anemia, no history of bone mineral disease or acidemia
-Continue with dialysis via new HD access
#Paroxysmal AF
-Home medications include amiodarone and Eliquis
-No known history of electrophysiologic interventions
-Currently stable
#H/O C. difficile colitis with colonization
-Remains on p.o. vancomycin 125 mg twice daily and probiotics
#Chronic hypoxemic respiratory failure (resolved)
-Did require 2 L oxygen fairly consistently, in the setting of deconditioning
-Has since been weaned off and is comfortable on room air
#Chronic wounds
-L anterior upper thigh full thickness wound to subcutaneous layer, pink that can be visualized, undermines medially about 3cm, mod-large amount of murky serous drainage. Skin mild red around wound suspect r/t moisture.
-L medial upper thigh with a linear dermal ulcer suspect from rubbing and previous diaper use.
-Sacral crease stage 2 pressure injury along with MASD
-bilateral sacral buttocks stage 2 pressure injuries along with MASD.
-Perineal MASD.
-L medial posterior thigh linear red ecchymotic area.
-Small abrasions on R posterior ankle/calf. Heels slow to libby red/boggy.
-L anterior, lateral and posterior chest/back with scattered zoster lesions.
-follow wound care recs
DVT prophylaxis: Eliquis
Diet: Standard renal
CODE STATUS: DNR
Anticipated Discharge: > 48 hours
Subjective/Interval History
-
Date of Service: June 13, 2024
Seen and examined at the bedside. No acute events reported overnight. AFVSS on room air
She states she feels well. Denies any acute complaints including chest pain, dyspnea, fevers or chills
Has ongoing soft bowel movements due to C. difficile colonization however unchanged from baseline
Objective Data
-
Labs:
Laboratory Results
06/13/24
09:01
WBC 4.9
Hgb 10.0 L
Hct 32.5 L
Plt Count 183
Sodium 139
Potassium 3.5
Chloride 102
Carbon Dioxide 29
BUN 9
Creatinine 1.3 H
Glucose 101 H
Calcium 8.2 L
Vital Signs:
Vital Signs
Temp Pulse Resp BP Pulse Ox
98.0 F 89 16 127/57 95
06/13/24 07:00 06/13/24 13:06 06/13/24 09:13 06/13/24 13:06 06/13/24 09:13
I&O
06/12/24 06/13/24 06/14/24
06:59 06:59 06:59
Intake Total 1548.4 / 1548.4 480 / 480
Output Total 500 / 500
Balance 1048.4 / 1048.4 480 / 480
Review of Systems
-
History Source: Patient
All other systems: Reviewed and negative
Physical Exam
-
General: Well Developed, No Apparent Distress, Comfortable and Obese
HEENT: Normocephalic, Atraumatic, Moist Mucous Membranes and Anicteric
Respiratory: Clear to Auscultation and Non Labored Respirations
Cardiac: Regular Rhythm and S1/S2; Negative Murmur, Rub or Gallop
GI: Soft, Nontender, Nondistended and Normal Bowel Sounds
Musculoskeletal: No Clubbing, No Cyanosis and No Edema
Skin: Warm and Dry; Negative Rash
Neuro: AO x 3 and Nonfocal/Grossly Intact
Psych: Calm
Data Reviewed
-
Labs: Labs Reviewed by me and Discussed with Patient
[2024-06-13 15:00] VITALS: BP 117/61
[2024-06-13 23:07] VITALS: BP 141/78
[2024-06-14 02:38] VITALS: BP 125/58
[2024-06-14] MEDS: ProAmatine 20 MG PO ×3 (03:12→21:15)
[2024-06-14 06:00] VITALS: BMI 33.1
[2024-06-14 07:00] VITALS: BP 127/67
[2024-06-14] MEDS: SYMBICORT 160/4.5 MCG INHALER 2 PUFF INH ×2 (09:28→17:42)
[2024-06-14] MEDS: CRESTOR 5 MG PO (09:35)
[2024-06-14] MEDS: CYANOCOBALAMIN 1000 MCG IM (09:35)
[2024-06-14] MEDS: ELIQUIS 5 MG PO ×2 (09:35→21:14)
[2024-06-14] MEDS: NEURONTIN 100 MG PO (09:36)
[2024-06-14] MEDS: FOLVITE 1 MG PO (09:36)
[2024-06-14] MEDS: VISBIOME 2 CAP PO (09:36)
[2024-06-14] MEDS: NSS (PRESERVATIVE FREE) 10 ML IV ×2 (09:36→21:14)
[2024-06-14] MEDS: PACERONE 200 MG PO (09:36)
[2024-06-14] MEDS: PROTONIX IV 40 MG IV ×2 (09:36→21:14)
[2024-06-14] MEDS: FIRVANQ 125 MG PO ×2 (09:37→21:13)
[2024-06-14] MEDS: SINGULAIR 10 MG PO (09:37)
[2024-06-14] MEDS: DIFLUCAN 150 MG PO (10:03)
[2024-06-14] MEDS: DEBROX EAR DROPS 1 DROP OTIC ×2 (10:04→21:11)
[2024-06-14] MEDS: LAC HYDRIN, AM LACTIN LOTION 1 APPLIC TOPICAL ×2 (10:09→21:11)
--- NOTE | 2024-06-14 12:28 | W.PN.HOSP.TC ---
Today's Communication/Plan
-
Follow-up a.m. labs
Dialysis today
Continue Cefiderocol IV
Follow-up send all cultures
Assessment / Plan
Assessment / Plan
#CRE bacteremia with Enterobacter
-Suspected source was previous HD access; has since been replaced
-Was started on broad-spectrum IV antibiotics though culture showing garcia resistance
-Has ultimately been escalated to IV cefiderocol 750 mg every 12 hours
-Repeat blood cultures have shown no growth; awaiting send out cultures of isolate
-Had leukopenia which is now stable; clinically appears well
-Continue IV cefiderocol, follow-up send out cultures
-Continue to trend CBC and temperature curve
#Leukopenia
#Absolute neutropenia
-Likely consumptive with bacteremia; B12 level was slightly low however
-Has been started on B12 supplementation; hematology stated no role for G-CSF
-Trend CBC and ANC count
-Neutropenic precautions
#Intertrigo
-Currently on fluconazole 150 mg once weekly for 4-week course
#Hypotension
-Unclear cause though chronic in nature; Home medications include midodrine
-Echocardiogram here was normal with preserved LVEF and no significant other findings
-Continue on home regimen and monitor vital
#ESRD
-Oliguric, currently on HD every Saturday/Saturday/Saturday
-Unclear etiology; C/B anemia, no history of bone mineral disease or acidemia
-Continue with dialysis via new HD access
#Paroxysmal AF
-Home medications include amiodarone and Eliquis
-No known history of electrophysiologic interventions
-Currently stable
#H/O C. difficile colitis with colonization
-Remains on p.o. vancomycin 125 mg twice daily and probiotics
#Chronic hypoxemic respiratory failure (resolved)
-Did require 2 L oxygen fairly consistently, in the setting of deconditioning
-Has since been weaned off and is comfortable on room air
#Chronic wounds
-L anterior upper thigh full thickness wound to subcutaneous layer, pink that can be visualized, undermines medially about 3cm, mod-large amount of murky serous drainage. Skin mild red around wound suspect r/t moisture.
-L medial upper thigh with a linear dermal ulcer suspect from rubbing and previous diaper use.
-Sacral crease stage 2 pressure injury along with MASD
-bilateral sacral buttocks stage 2 pressure injuries along with MASD.
-Perineal MASD.
-L medial posterior thigh linear red ecchymotic area.
-Small abrasions on R posterior ankle/calf. Heels slow to libby red/boggy.
-L anterior, lateral and posterior chest/back with scattered zoster lesions.
-follow wound care recs
DVT prophylaxis: Eliquis
Diet: Standard renal
CODE STATUS: DNR
Anticipated Discharge: > 48 hours
Subjective/Interval History
-
Date of Service: June 14, 2024
Seen and examined at the bedside. No acute events reported overnight. AFVSS this morning on room air
Morning labs pending. Scheduled for dialysis today due to holiday schedule
Denies any acute complaints.
Objective Data
-
Vital Signs:
Vital Signs
Temp Pulse Resp BP Pulse Ox
98.2 F 75 18 127/67 95
06/14/24 07:00 06/14/24 09:31 06/14/24 09:31 06/14/24 07:00 06/14/24 09:31
I&O
06/13/24 06/14/24 06/15/24
06:59 06:59 06:59
Intake Total 480 / 480 2880 / 2880
Balance 480 / 480 2880 / 2880
Review of Systems
-
History Source: Patient
All other systems: Reviewed and negative
Physical Exam
-
General: Well Developed, No Apparent Distress, Comfortable and Obese
HEENT: Normocephalic, Atraumatic, Moist Mucous Membranes and Anicteric
Respiratory: Clear to Auscultation and Non Labored Respirations; Negative Accessory Resp Muscle Use
Cardiac: Regular Rhythm and S1/S2; Negative Murmur, Rub or Gallop
GI: Soft, Nontender, Nondistended and Normal Bowel Sounds
Musculoskeletal: No Clubbing, No Cyanosis and No Edema
Skin: Warm and Dry; Negative Rash
Neuro: AO x 3 and Nonfocal/Grossly Intact; Negative Tremors
Psych: Calm
Data Reviewed
-
Labs: Labs Reviewed by me, Discussed with Physician ([employer] Professional) and Discussed with Patient
[2024-06-14 13:58] LABS: Blood Urea Nitrogen 12 mg/dl (7-17); Calcium 7.9 mg/dl (8.4-10.2); Carbon Dioxide 27 mmol/L (22-30); Chloride 105 mmol/L (98-107); Estimated Creatinine Clearance 30 ml/min; Glucose 68 mg/dl (70-99); Potassium 3.1 mmol/L (3.5-5.1); Sodium 138 mmol/L (135-145); eGFR 31.66
--- NOTE | 2024-06-14 13:59 | W.PN.NEPH.HD ---
Assessment
-
Seen on HD. no complaints. VSS, access ok
continue high dose midodrine
Progress Note - Hemodialysis
-
Date of Service: June 14, 2024
Duration: 30 minutes and 3 hours
Potassium Bath: 3
Calcium Bath: 2.5
Opti-Dialyzer: 160
Ultrafiltration: Other (2kg)
Blood Flow: 400
Dialysate Flow: 600
Heparin: no
EPO: 8000 units
[2024-06-14] MEDS: FLEXBUMIN 25% FOR HEMODIALYSIS 12.5 GRAMS IV ×2 (14:05→15:48)
[2024-06-14 14:09] LABS: Hematocrit 28.6 % (37.0-47.0); Hemoglobin 8.8 g/dL (12.0-16.0); Mean Corp Hgb Conc. 30.8 g/dL (33.0-37.0); Mean Corpuscular Hgb 29.9 pg (27.0-31.0); Mean Corpuscular Volume 97.3 fL (81.0-99.0); Mean Platelet Volume 9.7 fL (7.4-10.4); Platelet Count 197 10^3/uL (130-400); Red Blood Cell Count 2.94 10^6/uL (4.20-5.40); Red Cell Dist. Width 22.5 % (11.5-14.5); White Blood Cell Count 7.6 10^3/uL (4.8-10.8)
[2024-06-14] MEDS: MANNITOL 25% 12.5 GRAMS IV ×2 (14:10→15:30)
[2024-06-14] MEDS: RETACRIT 8000 UNITS IV (14:23)
[2024-06-14 15:00] VITALS: BP 113/71
[2024-06-14 15:35] LABS: % Basophils 0.8 % (0-2); % Eosinophils 4.6 % (0-6); % Immature Granulocytes 2.5 % (0-0.5); % Lymphocytes 21.6 % (20.5-51.1); % Monocytes 6.6 % (1.7-9.3); % Neutrophils 63.9 % (42.2-75.2); Absolute Basophils 0.1 10^3/uL (0-0.2); Absolute Eosinophils 0.4 10^3/uL (0-0.7); Absolute Immature Granulocytes 0.2 10^3/uL (0-0.05); Absolute Lymphocytes 1.6 10^3/uL (1.2-3.4); Absolute Monocytes 0.5 10^3/uL (0.1-0.6); Absolute Neutrophils 4.8 10^3/uL (1.4-6.5); Anisocytosis 2+; Hypochromasia 1+; Macrocytosis 1+; Normal RBC Morphology No; Nucleated Red Blood Cells % 0 %
[2024-06-14] MEDS: HEPARIN 4300 UNITS INTRACATH (16:39)
[2024-06-14] MEDS: FETROJA 108.4 MG IV (17:17)
[2024-06-14] MEDS: ZINC OXIDE OINTMENT 1 APPLIC TOPICAL ×3 (18:07→21:13)
[2024-06-14] MEDS: DESENEX/MITRAZOL/ZEASORB 1 APPLIC TOPICAL ×2 (18:07→21:12)
[2024-06-14] MEDS: DESENEX/MITRAZOL/ZEASORB TOPICAL (18:08)
[2024-06-14] MEDS: DAKIN'S SOLUTION 0.125% 1/4 STRENGTH 473 ML TOPICAL (18:08)
--- NOTE | 2024-06-14 19:48 | PTCARENOTE ---
Bladder scan after HD showed 412 mL. Straight cath completed which drained 400ml george urine from bladder.
[2024-06-14 23:45] VITALS: BP 126/69
[2024-06-15 00:58] VITALS: BP 126/69
[2024-06-15] MEDS: ProAmatine 20 MG PO (04:22)
[2024-06-15] MEDS: FETROJA 108.4 MG IV ×2 (04:23→15:12)
[2024-06-15 06:00] VITALS: BMI 32.1
[2024-06-15 07:37] VITALS: BP 120/59
[2024-06-15] MEDS: FIRVANQ 125 MG PO ×2 (08:09→20:01)
[2024-06-15] MEDS: CRESTOR 5 MG PO (08:09)
[2024-06-15] MEDS: ELIQUIS 5 MG PO ×2 (08:10→20:01)
[2024-06-15] MEDS: NEURONTIN 100 MG PO (08:10)
[2024-06-15] MEDS: FOLVITE 1 MG PO (08:11)
[2024-06-15] MEDS: VISBIOME 2 CAP PO (08:11)
[2024-06-15] MEDS: SINGULAIR 10 MG PO (08:11)
[2024-06-15] MEDS: PACERONE 200 MG PO (08:11)
[2024-06-15] MEDS: PROTONIX IV 40 MG IV (08:12)
[2024-06-15] MEDS: NSS (PRESERVATIVE FREE) 10 ML IV (08:12)
[2024-06-15] MEDS: LAC HYDRIN, AM LACTIN LOTION 1 APPLIC TOPICAL ×2 (08:13→20:10)
[2024-06-15] MEDS: CYANOCOBALAMIN 1000 MCG IM (08:14)
[2024-06-15] MEDS: DEBROX EAR DROPS 1 DROP OTIC ×2 (08:14→20:11)
[2024-06-15] MEDS: DESENEX/MITRAZOL/ZEASORB 1 APPLIC TOPICAL ×3 (08:15→20:10)
[2024-06-15] MEDS: DAKIN'S SOLUTION 0.125% 1/4 STRENGTH 473 ML TOPICAL (08:15)
[2024-06-15] MEDS: ZINC OXIDE OINTMENT 1 APPLIC TOPICAL ×3 (08:16→20:11)
--- NOTE | 2024-06-15 08:19 | W.PN.HOSP.TC ---
Today's Communication/Plan
-
.
Assessment / Plan
Assessment / Plan
Ms. Michaela Pérez is a 73yoF pmh afib, HTN, HLD admitted for anemia.
CRE bacteremia with Enterobacter
-Suspected source was previous HD access; has since been replaced
-abx escalated to IV cefiderocol 750 mg every 12 hours
-Repeat blood cultures have shown no growth; awaiting send out cultures of isolate
-Continue IV cefiderocol, follow-up send out cultures
-Continue to trend CBC and temperature curve
Leukopenia
Absolute neutropenia
-Likely consumptive with bacteremia; B12 level was slightly low however
-Has been started on B12 supplementation
-resolved after 1 dose G-CSF 06/12
-Trend CBC and ANC count
-Neutropenic precautions
Intertrigo
-Currently on fluconazole 150 mg once weekly for 4-week course
Hypotension
-Unclear cause though chronic in nature; Home medications include midodrine
-Echocardiogram here was normal with preserved LVEF and no significant other findings
-Continue on home regimen and monitor vital
ESRD
-Oliguric, currently on HD every MWF. HD tomorrow per nephro
-Unclear etiology; C/B anemia, no history of bone mineral disease or acidemia
-Continue with dialysis via new HD access
Paroxysmal AFib
-Home medications include amiodarone and Eliquis
-No known history of electrophysiologic interventions
-Currently stable
H/O C. difficile colitis with colonization
-Remains on p.o. vancomycin 125 mg twice daily and probiotics
Chronic wounds
-L anterior upper thigh full thickness wound to subcutaneous layer, pink that can be visualized, undermines medially about 3cm, mod-large amount of murky serous drainage. Skin mild red around wound suspect r/t moisture.
-L medial upper thigh with a linear dermal ulcer suspect from rubbing and previous diaper use.
-Sacral crease stage 2 pressure injury along with MASD
-bilateral sacral buttocks stage 2 pressure injuries along with MASD.
-Perineal MASD.
-L medial posterior thigh linear red ecchymotic area.
-Small abrasions on R posterior ankle/calf. Heels slow to libby red/boggy.
-L anterior, lateral and posterior chest/back with scattered zoster lesions.
-follow wound care recs
DVT prophylaxis: Eliquis
Diet: Standard renal
CODE STATUS: DNR
Anticipated Discharge: > 48 hours
Subjective/Interval History
-
Date of Service: June 15, 2024
Ms. Michaela Pérez is a 73yoF pmh afib, HTN, HLD admitted for anemia. No acute overnight events. No concerns at this time.
Objective Data
-
Labs:
Laboratory Results
06/15/24
07:27
WBC Pending
Hgb Pending
Hct Pending
Plt Count Pending
Sodium Pending
Potassium Pending
Chloride Pending
Carbon Dioxide Pending
BUN Pending
Creatinine Pending
Glucose Pending
Calcium Pending
Vital Signs:
Vital Signs
Temp Pulse Resp BP Pulse Ox
98.6 F 72 18 120/59 96
06/15/24 07:37 06/15/24 07:37 06/15/24 07:37 06/15/24 07:37 06/15/24 07:37
I&O
06/14/24 06/15/24 06/16/24
06:59 06:59 06:59
Intake Total 2880 / 2880 1728 / 1728
Output Total 400 / 400
Balance 2880 / 2880 1328 / 1328
Review of Systems
-
History Source: Patient
Constitutional: Reports No Symptoms
Respiratory: Reports No Symptoms
Cardiac: Reports No Symptoms
Abdomen/GI: Reports No Symptoms
Genitourinary: Reports No Symptoms
Musculoskeletal: Reports No Symptoms
Neuro: Reports No Symptoms
Physical Exam
-
General: Well Developed, Well Nourished, Comfortable and Obese
HEENT: Normocephalic, Atraumatic, Moist Mucous Membranes and Anicteric
Respiratory: Clear to Auscultation
Cardiac: S1/S2 and Irregular Rhythm
GI: Soft, Nontender, Nondistended and Normal Bowel Sounds
Musculoskeletal: No Clubbing, No Cyanosis and No Edema
Skin: Warm and Dry
Neuro: AO x 3
Psych: Calm
[2024-06-15 08:57] LABS: Hematocrit 30.1 % (37.0-47.0); Hemoglobin 9.1 g/dL (12.0-16.0); Mean Corp Hgb Conc. 30.2 g/dL (33.0-37.0); Mean Corpuscular Hgb 29.6 pg (27.0-31.0); Mean Platelet Volume 10.2 fL (7.4-10.4); Platelet Count 180 10^3/uL (130-400); Red Blood Cell Count 3.07 10^6/uL (4.20-5.40); Red Cell Dist. Width 22.3 % (11.5-14.5); White Blood Cell Count 5.9 10^3/uL (4.8-10.8)
[2024-06-15] MEDS: SYMBICORT 160/4.5 MCG INHALER 2 PUFF INH ×2 (09:15→19:34)
--- NOTE | 2024-06-15 09:16 | W.PN.ONC2 ---
Today's Communication / Plan
-
daughter at bedside provided with updates
neutropenia resolved, hematology will sign off.
please reach out with any questions or concerns.
Impression
Impression
Enterobacter bacteremia/panresistant
Suspected HD cath source
End-stage renal disease on hemodialysis
Neutropenia, consumptive
Chronic hypoxic respiratory insufficiency secondary to deconditioning
Acute urinary retention
Paroxysmal A-fib
Herpes zoster
Hyperlipidemia
Chronic wounds
History of C. difficile colitis
Plan
Plan
Abx Tx per ID.
s/p 1 dose G-CSF 06/12, although, not used in sepsis however, based on the garcia resistant infection in case high WBC improves his status.
Subjective/Objective
Subjective
no new complaints
Vital Signs:
Vital Signs
Temp Pulse Resp BP Pulse Ox
98.6 F 72 18 120/59 96
06/15/24 07:37 06/15/24 08:11 06/15/24 07:37 06/15/24 08:11 06/15/24 07:37
Lab Results:
Laboratory Data
WBC 5.9 10^3/uL (4.8-10.8) 06/15/24 07:27
Hgb 9.1 g/dL (12.0-16.0) L 06/15/24 07:27
Plt Count 180 10^3/uL (130-400) 06/15/24 07:27
eGFR 31.66 06/14/24 13:11
eGFR Cancelled 06/14/24 13:11
Physical Exam
General: Comfortable and Appears Chronically Ill
Pulm: no Respiratory Distress
HEENT: Negative Jaundice
Cardiology: S1 and S2
Pulmonary: Clear
Extremities: No C/C/E
[2024-06-15 09:22] LABS: Blood Urea Nitrogen 4 mg/dl (7-17); Carbon Dioxide 31 mmol/L (22-30); Chloride 102 mmol/L (98-107); Estimated Creatinine Clearance 45 ml/min; Glucose 75 mg/dl (70-99); Potassium 3.4 mmol/L (3.5-5.1); Sodium 140 mmol/L (135-145); eGFR 53.39
[2024-06-15 10:00] LABS: % Eosinophils 4.7 % (0-6); % Immature Granulocytes 1.7 % (0-0.5); % Lymphocytes 25.3 % (20.5-51.1); % Monocytes 6.8 % (1.7-9.3); % Neutrophils 60.5 % (42.2-75.2); Absolute Basophils 0.1 10^3/uL (0-0.2); Absolute Eosinophils 0.3 10^3/uL (0-0.7); Absolute Immature Granulocytes 0.1 10^3/uL (0-0.05); Absolute Lymphocytes 1.5 10^3/uL (1.2-3.4); Absolute Monocytes 0.4 10^3/uL (0.1-0.6); Absolute Neutrophils 3.6 10^3/uL (1.4-6.5); Nucleated Red Blood Cells % 0 %
--- NOTE | 2024-06-15 11:14 | W.PN.NEPH.PH ---
Today's Communication / Plan
-
Dialysis tomorrow
Titrate back midodrine to 15 mg 3 times daily
Assessment/Plan
-
Assessment:
Enterobacter bacteremia/GNR - Panresistant
Intertrigo
Hypotension on midodrine
?ESRD on HD-MWF
Anemia -GIB
Chronic hypoxic respiratory insufficiency suspect related to chronic hospitalization, deconditioning
acute urinary retention
Asymptomatic bacteruria
parox a-fib
herpes zoster
hyperlipidemia
Hx c-diff colitis
osteoarthritis
Chronic wounds
Plan:
Enterobactor bacteremia -MRDO
on Cefiderocol twice daily postdialysis and Diflucan per ID
As blood pressure improving we will decrease to 15 mg 3 times daily
HD tomorrow, holiday schedule
-
-
Date of Service: June 15, 2024
CC / HPI / ROS
-
Chief Complaint:
ESRD
History of Present Illness:
BP stable on midodrine 20mg q8
Continued antibiotic for Enterobacter bacteremia
tolerated HD yesterday
no longer neutropenic
Review of Systems:
No chest pain or shortness of breath
no n/v
Labs
-
Labs:
WBC 5.9 10^3/uL (4.8-10.8) 06/15/24 07:27
RBC 3.07 10^6/uL (4.20-5.40) L 06/15/24 07:27
Hgb 9.1 g/dL (12.0-16.0) L 06/15/24 07:27
Hct 30.1 % (37.0-47.0) L 06/15/24 07:27
Plt Count 180 10^3/uL (130-400) 06/15/24 07:27
Sodium 140 mmol/L (135-145) 06/15/24 07:27
Potassium 3.4 mmol/L (3.5-5.1) L 06/15/24 07:27
Chloride 102 mmol/L (98-107) 06/15/24 07:27
Carbon Dioxide 31 mmol/L (22-30) H 06/15/24 07:27
BUN 4 mg/dl (7-17) L 06/15/24 07:27
Creatinine 1.1 mg/dL (0.6-1.0) H 06/15/24 07:27
eGFR 53.39 06/15/24 07:27
Glucose 75 mg/dl (70-99) 06/15/24 07:27
Calcium 8.0 mg/dl (8.4-10.2) L 06/15/24 07:27
Albumin 2.2 g/dl (3.5-5.0) L 05/26/24 16:18
Physical Exam
-
Vital Signs:
Vital Signs
Temp Pulse Resp BP Pulse Ox
98.6 F 75 18 120/59 95
06/15/24 07:37 06/15/24 09:18 06/15/24 09:18 06/15/24 08:11 06/15/24 09:18
Cardiovascular:: Regular rate and rhythm
Respiratory:: Bilateral: Coarse and Bilateral: Rales (Fine crackles at bases)
Lung Excursion:: Normal
Abdomen:: Nontender and Soft
Bowel Sounds:: Normal
Extremity Edema:: +1: Bilateral:
--- NOTE | 2024-06-15 11:48 | W.PN.ID1 ---
Date of Service
Date of Service: June 15, 2024
Today's Communication
Continue current antibiotics.
Awaiting CRE suspectibility from [facility].
Assessment / Plan
Leukopenia and neutropenia -resolved after 1 dose G-CSF 06/12
CRE - Enterobacter (MDRO) Bacteremia
Suspected HD cath source
Hypotension - possibly improving
Shingles below L breast - resolved, healing wound under the breast
ESRD on HD
Reported allergy to cephalexin (unknown)
Replaced L hip
- follow leukopenia, appreciate hematology evaluation; there is no known effective alternative to cefiderocol. Leukopenia/neutropenia developed on ceftazidime/avibactam/aztreonam
- 05/29 blood cultures x2 enterobacter - CRE with resistance to avycaz and eravacycline, sensitive to cefidercol
- switched to cefideracol 06/08 due to neturopenia and sensitivities resulting as sensitive
- dosing for HD is Q12 HR with dose to be given shortly after HD, attempting to coordinate with nephrology and pharmacy, if possible, patient will remain on 7:30/8AM HD with cefideracol dosing at 12AM and 12PM to accommodate
- Awaiting sensitivities of ceftaz-avibactam + aztreonam anticipated this week from [facility]; will help determine final duration; plan a course of two weeks of effective treatment
- 05/31 Repeat blood cx's x 2 (before meropenem) - no growth to date
- HD cath removed 06/01 - cath tip culture sensitivity very low, approximately 20%; most likely source despite a negative culture
- has permanent HD cath
- enhanced contact precautions
Intertrigo
- c/w fluconazole 150 mg PO q week x4 weeks total
- continue topical miconazole and zinc oxide
Colonization with C Difficile
- continue oral vanc BID given known colonization with c diff while on broad spectrum rx
- continue enhanced contact precautions for C difficile while in house; also plan to continue precautions given CRE
- follow clinically
Chief Complaint
-: Bacteremia (due to MDRO) and Other (sepsis, asymptomatic bacteruria)
Subjective / Review of Systems
No specific complaints toay.
Vital Signs / Physical Exam
Vital Signs
Vital Signs
Temp Pulse Resp BP Pulse Ox
98.6 F 75 18 120/59 95
06/15/24 07:37 06/15/24 09:18 06/15/24 09:18 06/15/24 08:11 06/15/24 09:18
Physical Exam
Constitutional: Chronically Ill
Pulmonary: Clear and Non Labored
Gastrointestinal: Non Distended
Neurological: Awake, Alert and Oriented
Lines: HD Cath
Objective Data
Lab Data
Lab Results
06/15/24 07:27
06/15/24 07:27
Estimated Creat Clear 45 ml/min 06/15/24 07:27
Total Bilirubin 0.5 mg/dl (0.2-1.3) 05/26/24 16:18
AST 22 U/L (14-36) 05/26/24 16:18
ALT 26 U/L (0-35) 05/26/24 16:18
Alkaline Phosphatase 99 U/L (38-126) 05/26/24 16:18
Most recent labs reviewed.
Micro Results:
05/29/24 12:43 Blood Culture - Final
Blood/Venous Enterobacter species
Gram Stain - Final
05/29/24 12:11 Blood Culture - Final
Blood/Venous Enterobacter cloacae
Enterobacter cloacae#2
Gram Stain - Final
06/01/24 04:09 Blood Culture - Final
Blood/Venous No Growth - Final Report
06/01/24 04:09 Blood Culture - Final
Blood/Venous No Growth - Final Report
05/31/24 06:08 Blood Culture - Final
Blood/Venous No Growth - Final Report
05/31/24 06:08 Blood Culture - Final
Blood/Venous No Growth - Final Report
06/01/24 14:45 Catheter Tip Culture - Final
Dialysis Line No Growth After 72 Hours
05/26/24 17:24 Salmonella/Shigella Culture - Final
Feces/Stool No Salmonella, Shigella, Aeromonas or Plesiomonas species
isolated.
Campylobacter Culture - Final
No Campylobacter species isolated.
Shiga Toxin Test - Final
No E. coli Shiga Toxin 1 or 2 detected.
05/26/24 17:24 Urine Culture - Final
Urine Klebsiella pneumoniae
05/26/24 23:43 MRSA Screen - Final
Nose Staph aureus MRSA
05/26/24 17:24 C. difficile GDH Antigen & Toxins - Final
Feces/Stool C. difficile antigen positive, toxin negative.
Clostridium difficile present, but toxin not detected.
Patient may be a carrier, colonized with nontoxinogenic
strain or the level of toxin in sample is below detection
limits. This information should be used in conjunction with
the patient's clinical history.
- Final
Negative for Norovirus GI and GII.
05/29/24 CT a/P:
1. No CT evidence for acute retroperitoneal or intraperitoneal hemorrhage.
2. Moderate to severe bilateral renal cortical volume loss and severe scarring in the lateral cortex of the left kidney consistent with END-STAGE RENAL DISEASE.
3. Severe calcific atherosclerotic plaque in the abdominal aorta and common iliac arteries.
4. Mild splenomegaly.
5. Severe diverticulosis in the sigmoid colon.
6. Small bilateral pleural effusions with adjacent bilateral lower lobe airspace consolidation (possibly right lower lobe pneumonia).
7. Severe calcific atherosclerotic plaque in the coronary arteries and thoracic aorta.
8. Mild cardiomegaly.
9. 6.8 mm pulmonary nodule in the lateral segment of the right middle lobe (possibly infectious or inflammatory in etiology). A follow-up chest CT examination in 6-12 months is recommended
10. Moderate anasarca.
11. Moderate to severe paraspinal and pelvic muscle atrophy.
12. Severe discogenic degenerative disease at L4/L5 and L5/S1.
[2024-06-15] MEDS: ProAmatine 15 MG PO ×2 (12:05→20:08)
--- NOTE | 2024-06-15 12:06 | CM ---
CM reviewed chart, patient seen bedside with daughter. Daughter provided new insurance information to CM, will be switching as of 06/17/24, will provide to admissions. Patient will require insurance auth for return to [facility]. Patient for
dialysis tomorrow. CM will continue to follow for all discharge planning needs.
Plan; return to [facility] when stable, will need insurance auth.
[2024-06-15 15:23] VITALS: BP 133/66
[2024-06-15] MEDS: PROTONIX 40 MG PO (20:01)
[2024-06-15 23:24] VITALS: BP 131/66
[2024-06-16] MEDS: ProAmatine PO (04:20)
[2024-06-16] MEDS: FETROJA 108.4 MG IV ×2 (04:32→17:36)
[2024-06-16 05:53] VITALS: BMI 32.3
[2024-06-16 07:20] VITALS: BP 135/77
[2024-06-16] MEDS: SYMBICORT 160/4.5 MCG INHALER 2 PUFF INH ×2 (07:57→19:50)
[2024-06-16] MEDS: RETACRIT 8000 UNITS IV (08:22)
[2024-06-16 08:34] LABS: Hemoglobin 9.1 g/dL (12.0-16.0); Mean Corp Hgb Conc. 30.3 g/dL (33.0-37.0); Mean Corpuscular Hgb 29.4 pg (27.0-31.0); Mean Corpuscular Volume 97.1 fL (81.0-99.0); Mean Platelet Volume 9.7 fL (7.4-10.4); Platelet Count 184 10^3/uL (130-400); Red Blood Cell Count 3.09 10^6/uL (4.20-5.40); White Blood Cell Count 3.9 10^3/uL (4.8-10.8)
[2024-06-16 08:55] LABS: Blood Urea Nitrogen 7 mg/dl (7-17); Calcium 8.3 mg/dl (8.4-10.2); Carbon Dioxide 30 mmol/L (22-30); Chloride 103 mmol/L (98-107); Estimated Creatinine Clearance 31 ml/min; Glucose 76 mg/dl (70-99); Sodium 138 mmol/L (135-145); eGFR 34.05
--- NOTE | 2024-06-16 10:23 | W.PN.HOSP.TC ---
Addendum entered and electronically signed by Power Zimmerman MD 06/16/24 16:26:
titrate midodrine down as BP tolerates
Original Note:
Today's Communication/Plan
-
.
Assessment / Plan
Assessment / Plan
Ms. Michaela Pérez is a 73yoF pmh afib, HTN, HLD admitted for anemia.
CRE bacteremia with Enterobacter
-Suspected source was previous HD access; has since been replaced
-abx escalated to IV cefiderocol 750 mg every 12 hours
-Repeat blood cultures have shown no growth; awaiting send out cultures of isolate
-Continue IV cefiderocol, follow-up send out cultures
-Continue to trend CBC and temperature curve
Leukopenia
Absolute neutropenia
-Likely consumptive with bacteremia; B12 level was slightly low however
-Has been started on B12 supplementation
-resolved after 1 dose G-CSF 06/12
-Trend CBC and ANC count
-Neutropenic precautions
Intertrigo
-Currently on fluconazole 150 mg once weekly for 4-week course
Hypotension
-Unclear cause though chronic in nature; Home medications include midodrine
-Echocardiogram here was normal with preserved LVEF and no significant other findings
-Continue on home regimen and monitor vital
ESRD
-Oliguric, currently on HD every MWF. HD today per nephro
-Unclear etiology; C/B anemia, no history of bone mineral disease or acidemia
-Continue with dialysis via new HD access
Paroxysmal AFib
-Home medications include amiodarone and Eliquis
-No known history of electrophysiologic interventions
-Currently stable
H/O C. difficile colitis with colonization
-Remains on p.o. vancomycin 125 mg twice daily and probiotics
Chronic wounds
-L anterior upper thigh full thickness wound to subcutaneous layer, pink that can be visualized, undermines medially about 3cm, mod-large amount of murky serous drainage. Skin mild red around wound suspect r/t moisture.
-L medial upper thigh with a linear dermal ulcer suspect from rubbing and previous diaper use.
-Sacral crease stage 2 pressure injury along with MASD
-bilateral sacral buttocks stage 2 pressure injuries along with MASD.
-Perineal MASD.
-L medial posterior thigh linear red ecchymotic area.
-Small abrasions on R posterior ankle/calf. Heels slow to libby red/boggy.
-L anterior, lateral and posterior chest/back with scattered zoster lesions.
-follow wound care recs
DVT prophylaxis: Eliquis
Diet: Standard renal
CODE STATUS: DNR
Anticipated Discharge: > 48 hours
Subjective/Interval History
-
Date of Service: June 16, 2024
Ms. Michaela Pérez is a 73yoF pmh afib, HTN, HLD admitted for anemia. Pt receiving dialysis in room. No acute overnight events. No concerns at this time.
Objective Data
-
Labs:
Laboratory Results
06/16/24 06/16/24
08:04 08:05
WBC 3.9 L
Hgb 9.1 L
Hct 30.0 L
Plt Count 184
Sodium 138
Potassium 3.0 L
Chloride 103
Carbon Dioxide 30
BUN 7
Creatinine 1.6 H
Glucose 76
Calcium 8.3 L
Vital Signs:
Vital Signs
Temp Pulse Resp BP Pulse Ox
97.6 F 82 16 135/77 95
06/16/24 07:20 06/16/24 08:26 06/16/24 08:26 06/16/24 07:20 06/16/24 08:26
I&O
06/15/24 06/16/24 06/17/24
06:59 06:59 06:59
Intake Total 1728 / 1728 1660 / 1660
Output Total 400 / 400
Balance 1328 / 1328 1659
Review of Systems
-
History Source: Patient
Constitutional: Reports No Symptoms
EENT: Reports No Symptoms Reported
Respiratory: Reports No Symptoms
Cardiac: Reports No Symptoms
Abdomen/GI: Reports No Symptoms
Genitourinary: Reports No Symptoms
Musculoskeletal: Reports No Symptoms
Skin: Reports No Symptoms
Neuro: Reports No Symptoms
Physical Exam
-
General: Well Developed and Well Nourished
HEENT: Normocephalic, Atraumatic and Anicteric
Respiratory: Wheezes
Cardiac: Regular Rhythm and S1/S2
GI: Soft, Nontender, Nondistended and Other (hypoactive BS)
Musculoskeletal: No Clubbing, No Cyanosis and No Edema
Skin: Warm, Dry and IV Access / Catheter Site
Neuro: AO x 3
[2024-06-16] MEDS: ProAmatine 15 MG PO ×2 (11:00→20:19)
--- NOTE | 2024-06-16 11:07 | W.PN.NEPH.HD ---
Assessment
-
Next treatment
Progress Note - Hemodialysis
-
Date of Service: June 16, 2024
Duration: 30 minutes and 3 hours
Potassium Bath: 3
Calcium Bath: 2.5
Opti-Dialyzer: 160
Ultrafiltration: Other (2kg)
Blood Flow: 400
Dialysate Flow: 600
Heparin: no
EPO: 8000 units
[2024-06-16] MEDS: HEPARIN 4000 UNITS INTRACATH (11:23)
--- NOTE | 2024-06-16 11:54 | W.PN.ID1 ---
Date of Service
Date of Service: June 16, 2024
Today's Communication
Continue current antibiotics.
Awaiting CRE susceptibility from [facility].
Assessment / Plan
Leukopenia and neutropenia -s/p 1 dose G-CSF 06/12
CRE - Enterobacter (MDRO) Bacteremia
Suspected HD cath source
Hypotension - possibly improving
Shingles below L breast - resolved, healing wound under the breast
ESRD on HD
Reported allergy to cephalexin (unknown)
Replaced L hip
- follow leukopenia, appreciate hematology evaluation; there is no known effective alternative to cefiderocol. Leukopenia/neutropenia developed on ceftazidime/avibactam/aztreonam
- WBC trended down today. Continue to follow.
- 05/29 blood cultures x2 enterobacter - CRE with resistance to avycaz and eravacycline, sensitive to cefidercol
- switched to cefideracol 06/08 due to neturopenia and sensitivities resulting as sensitive
- dosing for HD is Q12 HR with dose to be given shortly after HD, attempting to coordinate with nephrology and pharmacy, if possible, patient will remain on 7:30/8AM HD with cefideracol dosing at 12AM and 12PM to accommodate
- Awaiting sensitivities of ceftaz-avibactam + aztreonam anticipated this week from [facility]; will help determine final duration; plan a course of two weeks of effective treatment
- 05/31 Repeat blood cx's x 2 (before meropenem) - no growth to date
- HD cath removed 06/01 - cath tip culture sensitivity very low, approximately 20%; most likely source despite a negative culture
- has permanent HD cath
- enhanced contact precautions
Intertrigo
- c/w fluconazole 150 mg PO q week x4 weeks total
- continue topical miconazole and zinc oxide
Pruritis
- Replace Ammonium lactate with Aquaphor
-Ordered Benadryl prn
Colonization with C Difficile
- continue oral vanc BID given known colonization with c diff while on broad spectrum rx
- continue enhanced contact precautions for C difficile while in house; also plan to continue precautions given CRE
- follow clinically
Chief Complaint
-: Bacteremia (due to MDRO) and Other (sepsis, asymptomatic bacteruria)
Subjective / Review of Systems
C/o itching especially the back after application of topical Lac-Hydrin.
Vital Signs / Physical Exam
Vital Signs
Vital Signs
Temp Pulse Resp BP Pulse Ox
97.6 F 98 16 115/56 95
06/16/24 07:20 06/16/24 11:00 06/16/24 08:26 06/16/24 11:00 06/16/24 08:26
Physical Exam
Constitutional: No Acute Distress
Pulmonary: Clear
Gastrointestinal: Soft, Non Tender and Non Distended
Skin: Dry (forehead, lower extremities, back) and Rash (left breast fold dry dark red erythema)
Wound: Other
Objective Data
Lab Data
Lab Results
06/16/24 08:05
06/16/24 08:04
Estimated Creat Clear 31 ml/min 06/16/24 08:04
Total Bilirubin 0.5 mg/dl (0.2-1.3) 05/26/24 16:18
AST 22 U/L (14-36) 05/26/24 16:18
ALT 26 U/L (0-35) 05/26/24 16:18
Alkaline Phosphatase 99 U/L (38-126) 05/26/24 16:18
Most recent labs reviewed.
Micro Results:
05/29/24 12:43 Blood Culture - Final
Blood/Venous Enterobacter species
Gram Stain - Final
05/29/24 12:11 Blood Culture - Final
Blood/Venous Enterobacter cloacae
Enterobacter cloacae#2
Gram Stain - Final
06/01/24 04:09 Blood Culture - Final
Blood/Venous No Growth - Final Report
06/01/24 04:09 Blood Culture - Final
Blood/Venous No Growth - Final Report
05/31/24 06:08 Blood Culture - Final
Blood/Venous No Growth - Final Report
05/31/24 06:08 Blood Culture - Final
Blood/Venous No Growth - Final Report
06/01/24 14:45 Catheter Tip Culture - Final
Dialysis Line No Growth After 72 Hours
05/26/24 17:24 Salmonella/Shigella Culture - Final
Feces/Stool No Salmonella, Shigella, Aeromonas or Plesiomonas species
isolated.
Campylobacter Culture - Final
No Campylobacter species isolated.
Shiga Toxin Test - Final
No E. coli Shiga Toxin 1 or 2 detected.
05/26/24 17:24 Urine Culture - Final
Urine Klebsiella pneumoniae
05/26/24 23:43 MRSA Screen - Final
Nose Staph aureus MRSA
05/26/24 17:24 C. difficile GDH Antigen & Toxins - Final
Feces/Stool C. difficile antigen positive, toxin negative.
Clostridium difficile present, but toxin not detected.
Patient may be a carrier, colonized with nontoxinogenic
strain or the level of toxin in sample is below detection
limits. This information should be used in conjunction with
the patient's clinical history.
- Final
Negative for Norovirus GI and GII.
05/29/24 CT a/P:
1. No CT evidence for acute retroperitoneal or intraperitoneal hemorrhage.
2. Moderate to severe bilateral renal cortical volume loss and severe scarring in the lateral cortex of the left kidney consistent with END-STAGE RENAL DISEASE.
3. Severe calcific atherosclerotic plaque in the abdominal aorta and common iliac arteries.
4. Mild splenomegaly.
5. Severe diverticulosis in the sigmoid colon.
6. Small bilateral pleural effusions with adjacent bilateral lower lobe airspace consolidation (possibly right lower lobe pneumonia).
7. Severe calcific atherosclerotic plaque in the coronary arteries and thoracic aorta.
8. Mild cardiomegaly.
9. 6.8 mm pulmonary nodule in the lateral segment of the right middle lobe (possibly infectious or inflammatory in etiology). A follow-up chest CT examination in 6-12 months is recommended
10. Moderate anasarca.
11. Moderate to severe paraspinal and pelvic muscle atrophy.
12. Severe discogenic degenerative disease at L4/L5 and L5/S1.
[2024-06-16] MEDS: FIRVANQ 125 MG PO ×2 (12:14→20:20)
[2024-06-16] MEDS: ELIQUIS 5 MG PO ×2 (12:15→20:20)
[2024-06-16] MEDS: PACERONE 200 MG PO (12:15)
[2024-06-16] MEDS: VISBIOME 2 CAP PO (12:16)
[2024-06-16] MEDS: NEURONTIN 100 MG PO (12:16)
[2024-06-16] MEDS: PROTONIX 40 MG PO ×2 (12:16→20:20)
[2024-06-16] MEDS: SINGULAIR 10 MG PO (12:16)
[2024-06-16] MEDS: CRESTOR 5 MG PO (12:17)
[2024-06-16] MEDS: FOLVITE 1 MG PO (12:17)
[2024-06-16] MEDS: CYANOCOBALAMIN 1000 MCG IM (12:17)
[2024-06-16] MEDS: ZINC OXIDE OINTMENT 1 APPLIC TOPICAL ×3 (12:26→20:23)
[2024-06-16] MEDS: DESENEX/MITRAZOL/ZEASORB 1 APPLIC TOPICAL ×3 (12:27→20:21)
[2024-06-16] MEDS: DAKIN'S SOLUTION 0.125% 1/4 STRENGTH 473 ML TOPICAL (12:28)
[2024-06-16] MEDS: DEBROX EAR DROPS 1 DROP OTIC ×2 (12:29→20:20)
[2024-06-16] MEDS: HYDROPHOR 1 APPLIC TOPICAL ×2 (12:51→20:22)
[2024-06-16 15:00] VITALS: BP 130/67
[2024-06-16] MEDS: LAC HYDRIN, AM LACTIN LOTION TOPICAL (17:42)
[2024-06-16 23:20] VITALS: BP 138/73
[2024-06-17 01:23] VITALS: BP 138/73
[2024-06-17] MEDS: FETROJA 108.4 MG IV ×2 (03:03→16:43)
[2024-06-17] MEDS: ProAmatine PO ×3 (03:03→16:46)
[2024-06-17 06:04] LABS: Hematocrit 29.1 % (37.0-47.0); Hemoglobin 9.2 g/dL (12.0-16.0); Mean Corp Hgb Conc. 31.6 g/dL (33.0-37.0); Mean Corpuscular Hgb 30.3 pg (27.0-31.0); Mean Corpuscular Volume 95.7 fL (81.0-99.0); Mean Platelet Volume 10.4 fL (7.4-10.4); Platelet Count 156 10^3/uL (130-400); Red Blood Cell Count 3.04 10^6/uL (4.20-5.40); Red Cell Dist. Width 21.6 % (11.5-14.5); White Blood Cell Count 3.2 10^3/uL (4.8-10.8)
[2024-06-17 06:28] LABS: Blood Urea Nitrogen 6 mg/dl (7-17); Calcium 8.1 mg/dl (8.4-10.2); Carbon Dioxide 29 mmol/L (22-30); Chloride 100 mmol/L (98-107); Estimated Creatinine Clearance 36 ml/min; Glucose 75 mg/dl (70-99); Potassium 3.3 mmol/L (3.5-5.1); Sodium 136 mmol/L (135-145); eGFR 39.97
[2024-06-17 07:30] VITALS: BP 131/76
[2024-06-17] MEDS: SYMBICORT 160/4.5 MCG INHALER 2 PUFF INH ×2 (07:44→20:56)
[2024-06-17] MEDS: CYANOCOBALAMIN 1000 MCG IM (10:11)
[2024-06-17] MEDS: CRESTOR 5 MG PO (10:11)
[2024-06-17] MEDS: PROTONIX 40 MG PO ×2 (10:11→20:11)
[2024-06-17] MEDS: VISBIOME 2 CAP PO (10:12)
[2024-06-17] MEDS: PACERONE 200 MG PO (10:13)
[2024-06-17] MEDS: FOLVITE 1 MG PO (10:13)
[2024-06-17] MEDS: FIRVANQ 125 MG PO ×2 (10:13→20:11)
[2024-06-17] MEDS: NEURONTIN 100 MG PO (10:13)
[2024-06-17] MEDS: ELIQUIS 5 MG PO ×2 (10:13→20:11)
[2024-06-17] MEDS: SINGULAIR 10 MG PO (10:14)
[2024-06-17] MEDS: ZINC OXIDE OINTMENT 1 APPLIC TOPICAL ×3 (10:16→20:18)
[2024-06-17] MEDS: DEBROX EAR DROPS 1 DROP OTIC ×2 (10:17→20:11)
[2024-06-17] MEDS: DAKIN'S SOLUTION 0.125% 1/4 STRENGTH 473 ML TOPICAL (10:18)
[2024-06-17] MEDS: DESENEX/MITRAZOL/ZEASORB 1 APPLIC TOPICAL ×3 (10:18→20:18)
--- NOTE | 2024-06-17 12:40 | W.PN.NEPH.PH ---
Today's Communication / Plan
-
No acute need for dialysis today from a volume or electrolyte standpoint next treatment will be Saturday
Assessment/Plan
-
Assessment:
Enterobacter bacteremia/GNR - Panresistant
Intertrigo
Hypotension on midodrine
?ESRD on HD-MWF
Anemia -GIB
Chronic hypoxic respiratory insufficiency suspect related to chronic hospitalization, deconditioning
acute urinary retention
Asymptomatic bacteruria
parox a-fib
herpes zoster
hyperlipidemia
Hx c-diff colitis
osteoarthritis
Chronic wounds
Plan:
Enterobactor bacteremia -MRDO
on Cefiderocol twice daily postdialysis and Diflucan per ID
As blood pressure improving we will decrease to 15>10 mg 3 times daily
Next dialysis will be on Saturday
No acute need for dialysis today from a volume or electrolyte standpoint
-
-
Date of Service: June 17, 2024
CC / HPI / ROS
-
Chief Complaint:
ESRD
History of Present Illness:
BP stable on midodrine now on a lower dose
Continued antibiotic for Enterobacter bacteremia
tolerated HD yesterday
no longer neutropenic
Review of Systems:
No chest pain or shortness of breath
no n/v
Labs
-
Labs:
WBC 3.2 10^3/uL (4.8-10.8) L 06/17/24 05:06
RBC 3.04 10^6/uL (4.20-5.40) L 06/17/24 05:06
Hgb 9.2 g/dL (12.0-16.0) L 06/17/24 05:06
Hct 29.1 % (37.0-47.0) L 06/17/24 05:06
Plt Count 156 10^3/uL (130-400) 06/17/24 05:06
Sodium 136 mmol/L (135-145) 06/17/24 05:06
Potassium 3.3 mmol/L (3.5-5.1) L 06/17/24 05:06
Chloride 100 mmol/L (98-107) 06/17/24 05:06
Carbon Dioxide 29 mmol/L (22-30) 06/17/24 05:06
BUN 6 mg/dl (7-17) L 06/17/24 05:06
Creatinine 1.4 mg/dL (0.6-1.0) H 06/17/24 05:06
eGFR 39.97 06/17/24 05:06
Glucose 75 mg/dl (70-99) 06/17/24 05:06
Calcium 8.1 mg/dl (8.4-10.2) L 06/17/24 05:06
Albumin 2.2 g/dl (3.5-5.0) L 05/26/24 16:18
Physical Exam
-
Vital Signs:
Vital Signs
Temp Pulse Resp BP Pulse Ox
98.0 F 87 16 131/76 96
06/17/24 07:30 06/17/24 10:13 06/17/24 07:59 06/17/24 10:13 06/17/24 08:47
Cardiovascular:: Regular rate and rhythm
Respiratory:: Bilateral: Coarse and Bilateral: Rales (Fine crackles at bases)
Lung Excursion:: Normal
Abdomen:: Nontender and Soft
Bowel Sounds:: Normal
Extremity Edema:: +1: Bilateral:
--- NOTE | 2024-06-17 13:23 | W.PN.ID1 ---
Date of Service
Date of Service: June 17, 2024
Today's Communication
Continue current abx's. Will determine length of therapy, hopefully tomorrow.
Assessment / Plan
Leukopenia and neutropenia -s/p 1 dose G-CSF 06/12
CRE - Enterobacter (MDRO) Bacteremia
Suspected HD cath source
Hypotension - possibly improving
Shingles below L breast - resolved, healing wound under the breast
ESRD on HD
Reported allergy to cephalexin (unknown)
Replaced L hip
- follow leukopenia, appreciate hematology evaluation; there is no known effective alternative to cefiderocol. Leukopenia/neutropenia developed on ceftazidime/avibactam/aztreonam
- WBC trended down today. Continue to follow.
- 05/29 blood cultures x2 enterobacter - CRE with resistance to avycaz and eravacycline, sensitive to cefidercol
- switched to cefideracol 06/08 due to neturopenia and sensitivities resulting as sensitive
- dosing for HD is Q12 HR with dose to be given shortly after HD, attempting to coordinate with nephrology and pharmacy, if possible, patient will remain on 7:30/8AM HD with cefideracol dosing at 12AM and 12PM to accommodate
- Awaiting sensitivities of ceftaz-avibactam + aztreonam anticipated tomorrow from [facility]; will help determine final duration; plan a course of two weeks of effective treatment
- 05/31 Repeat blood cx's x 2 (before meropenem) - no growth to date
- HD cath removed 06/01 - cath tip culture sensitivity very low, approximately 20%; most likely source despite a negative culture
- has permanent HD cath
- enhanced contact precautions
Intertrigo
- c/w fluconazole 150 mg PO q week x4 weeks total
- continue topical miconazole and zinc oxide
Colonization with C Difficile
- continue oral vanc BID given known colonization with c diff while on broad spectrum rx
- continue enhanced contact precautions for C difficile while in house; also plan to continue precautions given CRE
- follow clinically
Chief Complaint
-: Bacteremia (due to MDRO) and Other (sepsis, asymptomatic bacteruria)
Subjective / Review of Systems
Itching much improved with the change of topical moisturizer.
Vital Signs / Physical Exam
Vital Signs
Vital Signs
Temp Pulse Resp BP Pulse Ox
98.0 F 87 16 131/76 96
06/17/24 07:30 06/17/24 10:13 06/17/24 07:59 06/17/24 10:13 06/17/24 08:47
Physical Exam
Constitutional: No Acute Distress
Pulmonary: Clear
Gastrointestinal: Soft, Non Tender and Non Distended
Skin: Dry (forehead, lower extremities, back) and Rash (left breast fold dry dark red erythema)
Wound: Other
Objective Data
Lab Data
Lab Results
06/17/24 05:06
06/17/24 05:06
Estimated Creat Clear 36 ml/min 06/17/24 05:06
Total Bilirubin 0.5 mg/dl (0.2-1.3) 05/26/24 16:18
AST 22 U/L (14-36) 05/26/24 16:18
ALT 26 U/L (0-35) 05/26/24 16:18
Alkaline Phosphatase 99 U/L (38-126) 05/26/24 16:18
Most recent labs reviewed.
Micro Results:
05/29/24 12:43 Blood Culture - Final
Blood/Venous Enterobacter species
Gram Stain - Final
05/29/24 12:11 Blood Culture - Final
Blood/Venous Enterobacter cloacae
Enterobacter cloacae#2
Gram Stain - Final
06/01/24 04:09 Blood Culture - Final
Blood/Venous No Growth - Final Report
06/01/24 04:09 Blood Culture - Final
Blood/Venous No Growth - Final Report
05/31/24 06:08 Blood Culture - Final
Blood/Venous No Growth - Final Report
05/31/24 06:08 Blood Culture - Final
Blood/Venous No Growth - Final Report
06/01/24 14:45 Catheter Tip Culture - Final
Dialysis Line No Growth After 72 Hours
05/26/24 17:24 Salmonella/Shigella Culture - Final
Feces/Stool No Salmonella, Shigella, Aeromonas or Plesiomonas species
isolated.
Campylobacter Culture - Final
No Campylobacter species isolated.
Shiga Toxin Test - Final
No E. coli Shiga Toxin 1 or 2 detected.
05/26/24 17:24 Urine Culture - Final
Urine Klebsiella pneumoniae
05/26/24 23:43 MRSA Screen - Final
Nose Staph aureus MRSA
05/26/24 17:24 C. difficile GDH Antigen & Toxins - Final
Feces/Stool C. difficile antigen positive, toxin negative.
Clostridium difficile present, but toxin not detected.
Patient may be a carrier, colonized with nontoxinogenic
strain or the level of toxin in sample is below detection
limits. This information should be used in conjunction with
the patient's clinical history.
- Final
Negative for Norovirus GI and GII.
05/29/24 CT a/P:
1. No CT evidence for acute retroperitoneal or intraperitoneal hemorrhage.
2. Moderate to severe bilateral renal cortical volume loss and severe scarring in the lateral cortex of the left kidney consistent with END-STAGE RENAL DISEASE.
3. Severe calcific atherosclerotic plaque in the abdominal aorta and common iliac arteries.
4. Mild splenomegaly.
5. Severe diverticulosis in the sigmoid colon.
6. Small bilateral pleural effusions with adjacent bilateral lower lobe airspace consolidation (possibly right lower lobe pneumonia).
7. Severe calcific atherosclerotic plaque in the coronary arteries and thoracic aorta.
8. Mild cardiomegaly.
9. 6.8 mm pulmonary nodule in the lateral segment of the right middle lobe (possibly infectious or inflammatory in etiology). A follow-up chest CT examination in 6-12 months is recommended
10. Moderate anasarca.
11. Moderate to severe paraspinal and pelvic muscle atrophy.
12. Severe discogenic degenerative disease at L4/L5 and L5/S1.
[2024-06-17 15:00] VITALS: BP 142/76
--- NOTE | 2024-06-17 15:18 | W.PN.HOSP.TC ---
Today's Communication/Plan
-
Assessment / Plan
Assessment / Plan
Ms. Michaela Pérez is a 73yoF pmh afib, HTN, HLD admitted for anemia.
CRE bacteremia with Enterobacter
-Suspected source was previous HD access; has since been replaced
-abx escalated to IV cefiderocol 750 mg every 12 hours
-Repeat blood cultures have shown no growth; awaiting send out cultures of isolate
-Continue IV cefiderocol, follow-up send out cultures
-Continue to trend CBC and temperature curve
Leukopenia
Absolute neutropenia
-Likely consumptive with bacteremia; B12 level was slightly low however
-Has been started on B12 supplementation
-resolved after 1 dose G-CSF 06/12
-Trend CBC and ANC count
-Neutropenic precautions
Intertrigo
-Currently on fluconazole 150 mg once weekly for 4-week course
Hypotension
-Unclear cause though chronic in nature; Home medications include midodrine
-Echocardiogram here was normal with preserved LVEF and no significant other findings
-Continue on home regimen and monitor vital
-- Titrate down midodrine begin 10 mg every 8 today
ESRD
-Oliguric, currently on HD every MWF. HD today per nephro
-Unclear etiology; C/B anemia, no history of bone mineral disease or acidemia
-Continue with dialysis via new HD access
Paroxysmal AFib
-Home medications include amiodarone and Eliquis
-No known history of electrophysiologic interventions
-Currently stable
H/O C. difficile colitis with colonization
-Remains on p.o. vancomycin 125 mg twice daily and probiotics
Chronic wounds
-L anterior upper thigh full thickness wound to subcutaneous layer, pink that can be visualized, undermines medially about 3cm, mod-large amount of murky serous drainage. Skin mild red around wound suspect r/t moisture.
-L medial upper thigh with a linear dermal ulcer suspect from rubbing and previous diaper use.
-Sacral crease stage 2 pressure injury along with MASD
-bilateral sacral buttocks stage 2 pressure injuries along with MASD.
-Perineal MASD.
-L medial posterior thigh linear red ecchymotic area.
-Small abrasions on R posterior ankle/calf. Heels slow to libby red/boggy.
-L anterior, lateral and posterior chest/back with scattered zoster lesions.
-follow wound care recs
DVT prophylaxis: Eliquis
Diet: Standard renal
CODE STATUS: DNR
Anticipated Discharge: > 48 hours
Subjective/Interval History
-
Date of Service: June 17, 2024
Seen and examined. No new complaints. No acute overnight events
Objective Data
-
Labs:
Laboratory Results
06/17/24
05:06
WBC 3.2 L
Hgb 9.2 L
Hct 29.1 L
Plt Count 156
Sodium 136
Potassium 3.3 L
Chloride 100
Carbon Dioxide 29
BUN 6 L
Creatinine 1.4 H
Glucose 75
Calcium 8.1 L
Vital Signs:
Vital Signs
Temp Pulse Resp BP Pulse Ox
98.0 F 87 16 131/76 96
06/17/24 07:30 06/17/24 10:13 06/17/24 07:59 06/17/24 10:13 06/17/24 08:47
I&O
06/16/24 06/17/24 06/18/24
06:59 06:59 06:59
Intake Total 1660 / 1660 1560 / 1560
Output Total 515 / 515
Balance 1660 / 1660 1045 / 1045
Physical Exam
-
General: Well Developed, Well Nourished and No Apparent Distress
HEENT: Normocephalic and Atraumatic
Respiratory: Clear to Auscultation
Cardiac: Regular Rhythm
GI: Soft, Nontender, Nondistended and Normal Bowel Sounds
Skin: Warm and Dry
Neuro: Awake, Alert, Oriented and AO x 3
Psych: Calm
[2024-06-17] MEDS: HYDROPHOR 1 APPLIC TOPICAL (20:17)
[2024-06-17 23:05] VITALS: BP 107/64
[2024-06-18] MEDS: ProAmatine 10 MG PO ×2 (02:55→17:30)
[2024-06-18] MEDS: FETROJA 108.4 MG IV ×2 (02:59→16:45)
[2024-06-18 06:00] VITALS: BMI 32.1
[2024-06-18 07:30] VITALS: BP 132/67
[2024-06-18] MEDS: SYMBICORT 160/4.5 MCG INHALER 2 PUFF INH ×2 (07:36→20:16)
[2024-06-18] MEDS: VISBIOME 2 CAP PO (07:56)
[2024-06-18] MEDS: CRESTOR 5 MG PO (07:56)
[2024-06-18] MEDS: PROTONIX 40 MG PO ×2 (07:56→19:39)
[2024-06-18] MEDS: FOLVITE 1 MG PO (07:57)
[2024-06-18] MEDS: ELIQUIS 5 MG PO ×2 (07:57→19:39)
[2024-06-18] MEDS: NEURONTIN 100 MG PO (07:57)
[2024-06-18] MEDS: PACERONE 200 MG PO (07:58)
[2024-06-18] MEDS: SINGULAIR 10 MG PO (07:58)
[2024-06-18] MEDS: DEBROX EAR DROPS 1 DROP OTIC ×2 (07:58→19:38)
[2024-06-18] MEDS: CYANOCOBALAMIN 1000 MCG IM (07:59)
[2024-06-18] MEDS: DAKIN'S SOLUTION 0.125% 1/4 STRENGTH 473 ML TOPICAL (07:59)
[2024-06-18] MEDS: DESENEX/MITRAZOL/ZEASORB 1 APPLIC TOPICAL ×3 (07:59→22:41)
[2024-06-18] MEDS: ZINC OXIDE OINTMENT 1 APPLIC TOPICAL ×3 (08:00→22:41)
[2024-06-18] MEDS: FIRVANQ 125 MG PO ×2 (08:01→19:39)
[2024-06-18 09:41] LABS: Hematocrit 30.8 % (37.0-47.0); Hemoglobin 9.4 g/dL (12.0-16.0); Mean Corp Hgb Conc. 30.5 g/dL (33.0-37.0); Mean Corpuscular Hgb 29.7 pg (27.0-31.0); Mean Corpuscular Volume 97.5 fL (81.0-99.0); Mean Platelet Volume 10.4 fL (7.4-10.4); Platelet Count 171 10^3/uL (130-400); Red Blood Cell Count 3.16 10^6/uL (4.20-5.40); Red Cell Dist. Width 21.7 % (11.5-14.5); White Blood Cell Count 2.6 10^3/uL (4.8-10.8)
[2024-06-18] MEDS: ProAmatine PO (09:56)
[2024-06-18 10:12] LABS: Blood Urea Nitrogen 11 mg/dl (7-17); Calcium 8.4 mg/dl (8.4-10.2); Carbon Dioxide 27 mmol/L (22-30); Chloride 102 mmol/L (98-107); Estimated Creatinine Clearance 23 ml/min; Glucose 73 mg/dl (70-99); Potassium 3.2 mmol/L (3.5-5.1); Sodium 137 mmol/L (135-145); eGFR 23.24
--- NOTE | 2024-06-18 11:42 | W.PN.NEPH.PH ---
Today's Communication / Plan
-
HD tomorrow
Assessment/Plan
-
Assessment:
Enterobacter bacteremia/GNR - Panresistant
Intertrigo
Hypotension on midodrine
?ESRD on HD-MWF
Anemia -GIB
Chronic hypoxic respiratory insufficiency suspect related to chronic hospitalization, deconditioning
acute urinary retention
Asymptomatic bacteruria
parox a-fib
herpes zoster
hyperlipidemia
Hx c-diff colitis
osteoarthritis
Chronic wounds
Plan:
Enterobactor bacteremia -MRDO
on Cefiderocol twice daily postdialysis and Diflucan per ID
HD tomorrow
midodrine prn only
increase K bath on HD
-
-
Date of Service: June 18, 2024
CC / HPI / ROS
-
Chief Complaint:
ESRD
History of Present Illness:
BP stable on midodrine though doses held
Continued antibiotic for Enterobacter bacteremia
tolerated HD saturday
WBC down to 2.6
K low 3.2
Review of Systems:
No chest pain or shortness of breath
no n/v
Labs
-
Labs:
WBC 2.6 10^3/uL (4.8-10.8) L 06/18/24 07:31
RBC 3.16 10^6/uL (4.20-5.40) L 06/18/24 07:31
Hgb 9.4 g/dL (12.0-16.0) L 06/18/24 07:31
Hct 30.8 % (37.0-47.0) L 06/18/24 07:31
Plt Count 171 10^3/uL (130-400) 06/18/24 07:31
Sodium 137 mmol/L (135-145) 06/18/24 07:31
Potassium 3.2 mmol/L (3.5-5.1) L 06/18/24 07:31
Chloride 102 mmol/L (98-107) 06/18/24 07:31
Carbon Dioxide 27 mmol/L (22-30) 06/18/24 07:31
BUN 11 mg/dl (7-17) 06/18/24 07:31
Creatinine 2.2 mg/dL (0.6-1.0) H 06/18/24 07:31
eGFR 23.24 06/18/24 07:31
Glucose 73 mg/dl (70-99) 06/18/24 07:31
Calcium 8.4 mg/dl (8.4-10.2) 06/18/24 07:31
Albumin 2.2 g/dl (3.5-5.0) L 05/26/24 16:18
Physical Exam
-
Vital Signs:
Vital Signs
Temp Pulse Resp BP Pulse Ox
97.7 F 80 16 132/67 96
06/18/24 07:30 06/18/24 07:40 06/18/24 07:40 06/18/24 07:30 06/18/24 07:40
Cardiovascular:: Regular rate and rhythm
Respiratory:: Bilateral: CTA
Lung Excursion:: Normal
Abdomen:: Nontender and Soft
Bowel Sounds:: Normal
Extremity Edema:: None: Bilateral:
--- NOTE | 2024-06-18 12:26 | W.PN.HOSP.TC ---
Today's Communication/Plan
-
Assessment / Plan
Assessment / Plan
Ms. Michaela Pérez is a 73yoF pmh afib, HTN, HLD admitted for anemia.
CRE bacteremia with Enterobacter
-Suspected source was previous HD access; has since been replaced
-abx escalated to IV cefiderocol 750 mg every 12 hours
-Repeat blood cultures have shown no growth; awaiting send out cultures of isolate
-Continue IV cefiderocol, follow-up send out cultures
-Continue to trend CBC and temperature curve
Leukopenia
Absolute neutropenia
-Likely consumptive with bacteremia; B12 level was slightly low however
-Has been started on B12 supplementation
-resolved after 1 dose G-CSF 06/12
-Trend CBC and ANC count
-Neutropenic precautions
Intertrigo
-Currently on fluconazole 150 mg once weekly for 4-week course
Hypotension
-Unclear cause though chronic in nature; Home medications include midodrine
-Echocardiogram here was normal with preserved LVEF and no significant other findings
-Continue on home regimen and monitor vital
-- Titrate down midodrine begin 10 mg every 8 today
ESRD
-Oliguric, currently on HD every MWF. HD today per nephro
-Unclear etiology; C/B anemia, no history of bone mineral disease or acidemia
-Continue with dialysis via new HD access
Paroxysmal AFib
-Home medications include amiodarone and Eliquis
-No known history of electrophysiologic interventions
-Currently stable
H/O C. difficile colitis with colonization
-Remains on p.o. vancomycin 125 mg twice daily and probiotics
Chronic wounds
-L anterior upper thigh full thickness wound to subcutaneous layer, pink that can be visualized, undermines medially about 3cm, mod-large amount of murky serous drainage. Skin mild red around wound suspect r/t moisture.
-L medial upper thigh with a linear dermal ulcer suspect from rubbing and previous diaper use.
-Sacral crease stage 2 pressure injury along with MASD
-bilateral sacral buttocks stage 2 pressure injuries along with MASD.
-Perineal MASD.
-L medial posterior thigh linear red ecchymotic area.
-Small abrasions on R posterior ankle/calf. Heels slow to libby red/boggy.
-L anterior, lateral and posterior chest/back with scattered zoster lesions.
-follow wound care recs
DVT prophylaxis: Eliquis
Diet: Standard renal
CODE STATUS: DNR
Anticipated Discharge: > 48 hours
Subjective/Interval History
-
Date of Service: June 18, 2024
Seen and examined. No new complaints. No acute overnight events
Objective Data
-
Labs:
Laboratory Results
06/18/24
07:31
WBC 2.6 L
Hgb 9.4 L
Hct 30.8 L
Plt Count 171
Sodium 137
Potassium 3.2 L
Chloride 102
Carbon Dioxide 27
BUN 11
Creatinine 2.2 H
Glucose 73
Calcium 8.4
Vital Signs:
Vital Signs
Temp Pulse Resp BP Pulse Ox
97.7 F 80 16 132/67 96
06/18/24 07:30 06/18/24 07:40 06/18/24 07:40 06/18/24 07:30 06/18/24 07:40
I&O
06/17/24 06/18/24 06/19/24
06:59 06:59 06:59
Intake Total 1560 / 1560 600 / 600
Output Total 515 / 515 0 / 0 500 / 500
Balance 1045 / 1045 600 / 600 -500 / -500
Physical Exam
-
General: Well Developed and Well Nourished
HEENT: Normocephalic and Atraumatic
Respiratory: Clear to Auscultation
Cardiac: Regular Rhythm
GI: Soft, Nontender, Nondistended and Normal Bowel Sounds
Skin: Warm
Neuro: Awake, Alert, Oriented and AO x 3
Psych: Calm
--- NOTE | 2024-06-18 14:08 | W.PN.ID1 ---
Date of Service
Date of Service: June 18, 2024
Today's Communication
Continue current abx's for now.
Per [facility], susceptible data will be available tomorrow.
Assessment / Plan
Leukopenia -s/p 1 dose G-CSF 06/12 - trending down again
CRE - Enterobacter (MDRO) Bacteremia
Suspected HD cath source
Hypotension - possibly improving
Shingles below L breast - resolved, healing wound under the breast
ESRD on HD
Reported allergy to cephalexin (unknown)
Replaced L hip
- follow leukopenia, appreciate hematology evaluation; there is no known effective alternative to cefiderocol. Leukopenia/neutropenia developed on ceftazidime/avibactam/aztreonam
- WBC trending down. Continue to follow closely.
- 05/29 blood cultures x2 enterobacter - CRE with resistance to avycaz and eravacycline, sensitive to cefidercol
- switched to cefideracol 06/08 due to neturopenia and sensitivities resulting as sensitive
- dosing for HD is Q12 HR with dose to be given shortly after HD, attempting to coordinate with nephrology and pharmacy, if possible, patient will remain on 7:30/8AM HD with cefideracol dosing at 12AM and 12PM to accommodate
- Awaiting sensitivities of ceftaz-avibactam + aztreonam anticipated Monday 06/19 from [facility]; will help determine final duration; plan a course of two weeks of effective treatment
- 05/31 Repeat blood cx's x 2 (before meropenem) - no growth to date
- HD cath removed 06/01 - cath tip culture sensitivity very low, approximately 20%; most likely source despite a negative culture
- has permanent HD cath
- enhanced contact precautions
Intertrigo
- c/w fluconazole 150 mg PO q week x4 weeks total
- continue topical miconazole and zinc oxide
Colonization with C Difficile
- continue oral vanc BID given known colonization with c diff while on broad spectrum rx
- continue enhanced contact precautions for C difficile while in house; also plan to continue precautions given CRE
- follow clinically
Chief Complaint
-: Bacteremia (due to MDRO) and Other (sepsis, asymptomatic bacteruria)
Vital Signs / Physical Exam
Vital Signs
Vital Signs
Temp Pulse Resp BP Pulse Ox
97.7 F 80 16 132/67 96
06/18/24 07:30 06/18/24 07:40 06/18/24 07:40 06/18/24 07:30 06/18/24 07:40
Physical Exam
Constitutional: No Acute Distress
Cardiovascular: Regular Rate and S1/S2
Pulmonary: Clear
Gastrointestinal: Soft, Non Tender and Non Distended
Neurological: AO x 3
Objective Data
Lab Data
Lab Results
06/18/24 07:31
06/18/24 07:31
Estimated Creat Clear 23 ml/min 06/18/24 07:31
Total Bilirubin 0.5 mg/dl (0.2-1.3) 05/26/24 16:18
AST 22 U/L (14-36) 05/26/24 16:18
ALT 26 U/L (0-35) 05/26/24 16:18
Alkaline Phosphatase 99 U/L (38-126) 05/26/24 16:18
Most recent labs reviewed.
Micro Results:
05/29/24 12:43 Blood Culture - Final
Blood/Venous Enterobacter species
Gram Stain - Final
05/29/24 12:11 Blood Culture - Final
Blood/Venous Enterobacter cloacae
Enterobacter cloacae#2
Gram Stain - Final
06/01/24 04:09 Blood Culture - Final
Blood/Venous No Growth - Final Report
06/01/24 04:09 Blood Culture - Final
Blood/Venous No Growth - Final Report
05/31/24 06:08 Blood Culture - Final
Blood/Venous No Growth - Final Report
05/31/24 06:08 Blood Culture - Final
Blood/Venous No Growth - Final Report
06/01/24 14:45 Catheter Tip Culture - Final
Dialysis Line No Growth After 72 Hours
05/26/24 17:24 Salmonella/Shigella Culture - Final
Feces/Stool No Salmonella, Shigella, Aeromonas or Plesiomonas species
isolated.
Campylobacter Culture - Final
No Campylobacter species isolated.
Shiga Toxin Test - Final
No E. coli Shiga Toxin 1 or 2 detected.
05/26/24 17:24 Urine Culture - Final
Urine Klebsiella pneumoniae
05/26/24 23:43 MRSA Screen - Final
Nose Staph aureus MRSA
05/26/24 17:24 C. difficile GDH Antigen & Toxins - Final
Feces/Stool C. difficile antigen positive, toxin negative.
Clostridium difficile present, but toxin not detected.
Patient may be a carrier, colonized with nontoxinogenic
strain or the level of toxin in sample is below detection
limits. This information should be used in conjunction with
the patient's clinical history.
- Final
Negative for Norovirus GI and GII.
05/29/24 CT a/P:
1. No CT evidence for acute retroperitoneal or intraperitoneal hemorrhage.
2. Moderate to severe bilateral renal cortical volume loss and severe scarring in the lateral cortex of the left kidney consistent with END-STAGE RENAL DISEASE.
3. Severe calcific atherosclerotic plaque in the abdominal aorta and common iliac arteries.
4. Mild splenomegaly.
5. Severe diverticulosis in the sigmoid colon.
6. Small bilateral pleural effusions with adjacent bilateral lower lobe airspace consolidation (possibly right lower lobe pneumonia).
7. Severe calcific atherosclerotic plaque in the coronary arteries and thoracic aorta.
8. Mild cardiomegaly.
9. 6.8 mm pulmonary nodule in the lateral segment of the right middle lobe (possibly infectious or inflammatory in etiology). A follow-up chest CT examination in 6-12 months is recommended
10. Moderate anasarca.
11. Moderate to severe paraspinal and pelvic muscle atrophy.
12. Severe discogenic degenerative disease at L4/L5 and L5/S1.
[2024-06-18 14:27] VITALS: BP 107/72
[2024-06-18 15:00] VITALS: BP 114/72
[2024-06-18 23:22] VITALS: BP 119/70
[2024-06-19] MEDS: ProAmatine 10 MG PO ×3 (02:11→17:25)
[2024-06-19] MEDS: FETROJA 108.4 MG IV (04:19)
[2024-06-19 06:00] VITALS: BMI 32.1
[2024-06-19 07:05] VITALS: BP 121/62
[2024-06-19] MEDS: SYMBICORT 160/4.5 MCG INHALER 2 PUFF INH ×2 (08:20→20:36)
[2024-06-19] MEDS: RETACRIT 8000 UNITS IV (10:16)
[2024-06-19 10:25] LABS: Hematocrit 29.2 % (37.0-47.0); Mean Corp Hgb Conc. 30.8 g/dL (33.0-37.0); Mean Corpuscular Hgb 29.5 pg (27.0-31.0); Mean Corpuscular Volume 95.7 fL (81.0-99.0); Mean Platelet Volume 10.4 fL (7.4-10.4); Platelet Count 173 10^3/uL (130-400); Red Blood Cell Count 3.05 10^6/uL (4.20-5.40); Red Cell Dist. Width 21.3 % (11.5-14.5); White Blood Cell Count 2.5 10^3/uL (4.8-10.8)
[2024-06-19] MEDS: FLEXBUMIN 25% FOR HEMODIALYSIS 12.5 GRAMS IV (10:48)
[2024-06-19] MEDS: MANNITOL 25% 12.5 GRAMS IV (11:04)
--- NOTE | 2024-06-19 11:19 | W.PN.NEPH.HD ---
Assessment
-
pt seen during HD
vitals stable
CVC functions well
remains on midodrine-wean as tolerated
high k bath for hypokalemia
Progress Note - Hemodialysis
-
Date of Service: June 19, 2024
Duration: 30 minutes and 3 hours
Potassium Bath: 4
Calcium Bath: 2.5
Opti-Dialyzer: 160
Ultrafiltration: Other (1kg)
Blood Flow: 400
Dialysate Flow: 600
Heparin: no
EPO: 8000
[2024-06-19 11:29] LABS: Blood Urea Nitrogen 19 mg/dl (7-17); Calcium 8.1 mg/dl (8.4-10.2); Carbon Dioxide 27 mmol/L (22-30); Chloride 103 mmol/L (98-107); Estimated Creatinine Clearance 19 ml/min; Glucose 63 mg/dl (70-99); Potassium 2.9 mmol/L (3.5-5.1); Sodium 137 mmol/L (135-145); eGFR 19.02
[2024-06-19] MEDS: HEPARIN 2200 UNITS INTRACATH (11:42)
--- NOTE | 2024-06-19 12:04 | W.PN.ID1 ---
Date of Service
Date of Service: June 19, 2024
Today's Communication
DC cefideracol.
c/w fluconazole 150 mg PO q week x4 weeks total
continue oral vanc BID given known colonization with c diff through 06/24/24.
Assessment / Plan
Leukopenia -s/p 1 dose G-CSF 06/12 - trending down again
CRE - Enterobacter (MDRO) Bacteremia
Suspected HD cath source
Hypotension - possibly improving
Shingles below L breast - resolved, healing wound under the breast
ESRD on HD
Reported allergy to cephalexin (unknown)
Replaced L hip
- follow leukopenia, appreciate hematology evaluation; there is no known effective alternative to cefiderocol. Leukopenia/neutropenia developed on ceftazidime/avibactam/aztreonam
- WBC trending down. Continue to follow closely.
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
- s/p empiric ceftazidime/avibactam/aztreonam x 5 days then switched to cefideracol 06/08 due to neturopenia
- Appreciate [facility] for testing this NDM-Enterobacter.
Although no formal interpretation, organism appears sensitivity to aztreonam/avibactam combo.
- She has received >14d of effective therapy.
Can dc cefideracol.
- 05/31 Repeat blood cx's x 2 (before meropenem) - no growth
- HD cath removed 06/01 - cath tip culture sensitivity very low, approximately 20%; most likely source despite a negative culture
- has permanent HD cath
- enhanced contact precautions
Intertrigo
- c/w fluconazole 150 mg PO q week x4 weeks total
- continue topical miconazole and zinc oxide
Colonization with C Difficile
- continue oral vanc BID given known colonization with c diff through 06/24/24.
- continue enhanced contact precautions for C difficile while in house; also plan to continue precautions given CRE
Chief Complaint
-: Bacteremia (due to MDRO) and Other (sepsis, asymptomatic bacteruria)
Subjective / Review of Systems
Feels well. Daughter at bedside.
Vital Signs / Physical Exam
Vital Signs
Vital Signs
Temp Pulse Resp BP Pulse Ox
97.5 F 81 16 89/60 96
06/19/24 07:05 06/19/24 11:14 06/19/24 08:25 06/19/24 11:14 06/19/24 08:25
Physical Exam
Constitutional: No Acute Distress and Comfortable
Cardiovascular: Regular Rate and S1/S2
Pulmonary: Clear
Gastrointestinal: Soft, Non Tender and Non Distended
Neurological: AO x 3
Objective Data
Lab Data
Lab Results
06/19/24 10:10
06/19/24 10:10
Estimated Creat Clear 19 ml/min 06/19/24 10:10
Total Bilirubin 0.5 mg/dl (0.2-1.3) 05/26/24 16:18
AST 22 U/L (14-36) 05/26/24 16:18
ALT 26 U/L (0-35) 05/26/24 16:18
Alkaline Phosphatase 99 U/L (38-126) 05/26/24 16:18
Most recent labs reviewed.
Micro Results:
05/29/24 12:11 Miscellaneous Microbiology Test - Final
Blood/Venous
05/29/24 12:43 Blood Culture - Final
Blood/Venous Enterobacter species
Gram Stain - Final
05/29/24 12:11 Blood Culture - Final
Blood/Venous Enterobacter cloacae
Enterobacter cloacae#2
Gram Stain - Final
06/01/24 04:09 Blood Culture - Final
Blood/Venous No Growth - Final Report
06/01/24 04:09 Blood Culture - Final
Blood/Venous No Growth - Final Report
05/31/24 06:08 Blood Culture - Final
Blood/Venous No Growth - Final Report
05/31/24 06:08 Blood Culture - Final
Blood/Venous No Growth - Final Report
06/01/24 14:45 Catheter Tip Culture - Final
Dialysis Line No Growth After 72 Hours
05/26/24 17:24 Salmonella/Shigella Culture - Final
Feces/Stool No Salmonella, Shigella, Aeromonas or Plesiomonas species
isolated.
Campylobacter Culture - Final
No Campylobacter species isolated.
Shiga Toxin Test - Final
No E. coli Shiga Toxin 1 or 2 detected.
05/26/24 17:24 Urine Culture - Final
Urine Klebsiella pneumoniae
05/26/24 23:43 MRSA Screen - Final
Nose Staph aureus MRSA
05/26/24 17:24 C. difficile GDH Antigen & Toxins - Final
Feces/Stool C. difficile antigen positive, toxin negative.
Clostridium difficile present, but toxin not detected.
Patient may be a carrier, colonized with nontoxinogenic
strain or the level of toxin in sample is below detection
limits. This information should be used in conjunction with
the patient's clinical history.
- Final
Negative for Norovirus GI and GII.
05/29/24 CT a/P:
1. No CT evidence for acute retroperitoneal or intraperitoneal hemorrhage.
2. Moderate to severe bilateral renal cortical volume loss and severe scarring in the lateral cortex of the left kidney consistent with END-STAGE RENAL DISEASE.
3. Severe calcific atherosclerotic plaque in the abdominal aorta and common iliac arteries.
4. Mild splenomegaly.
5. Severe diverticulosis in the sigmoid colon.
6. Small bilateral pleural effusions with adjacent bilateral lower lobe airspace consolidation (possibly right lower lobe pneumonia).
7. Severe calcific atherosclerotic plaque in the coronary arteries and thoracic aorta.
8. Mild cardiomegaly.
9. 6.8 mm pulmonary nodule in the lateral segment of the right middle lobe (possibly infectious or inflammatory in etiology). A follow-up chest CT examination in 6-12 months is recommended
10. Moderate anasarca.
11. Moderate to severe paraspinal and pelvic muscle atrophy.
12. Severe discogenic degenerative disease at L4/L5 and L5/S1.
Care Review
Plan reviewed with: Physician (Dr. Demario Zimmerman)
--- NOTE | 2024-06-19 12:37 | CM ---
CM reviewed chart, reviewed with Hospitalist, patient for HD today. Patient will require insurance auth upon returning to [facility], updated insurance as of 06/17/24. CM will continue to follow for all discharge planing needs.
Plan; [facility] once stable, will require insurance auth, HD at facility
[2024-06-19] MEDS: VISBIOME 2 CAP PO (12:54)
[2024-06-19] MEDS: DEBROX EAR DROPS 1 DROP OTIC ×2 (12:54→20:30)
[2024-06-19] MEDS: FIRVANQ 125 MG PO ×2 (12:55→20:45)
[2024-06-19] MEDS: CYANOCOBALAMIN 1000 MCG IM (12:55)
[2024-06-19] MEDS: CRESTOR 5 MG PO (12:56)
[2024-06-19] MEDS: PACERONE 200 MG PO (12:56)
[2024-06-19] MEDS: NEURONTIN 100 MG PO (12:56)
[2024-06-19] MEDS: PROTONIX 40 MG PO ×2 (12:57→20:46)
[2024-06-19] MEDS: SINGULAIR 10 MG PO (12:57)
[2024-06-19] MEDS: ELIQUIS 5 MG PO ×2 (12:57→20:46)
[2024-06-19] MEDS: FOLVITE 1 MG PO (12:57)
[2024-06-19] MEDS: HYDROPHOR 1 APPLIC TOPICAL (12:58)
[2024-06-19] MEDS: DAKIN'S SOLUTION 0.125% 1/4 STRENGTH 473 ML TOPICAL (12:59)
[2024-06-19] MEDS: DESENEX/MITRAZOL/ZEASORB 1 APPLIC TOPICAL ×3 (12:59→22:10)
[2024-06-19] MEDS: ZINC OXIDE OINTMENT 1 APPLIC TOPICAL ×3 (13:00→22:10)
[2024-06-19 15:05] VITALS: BP 121/61
--- NOTE | 2024-06-19 15:20 | WOUNDNOTE ---
WO RN note: Patient wounds improved since last week, smaller. Back skin lesions newly healed. Buttocks ulcers and L thigh wound smaller. Patient reports a good appetite. She assists with turning. Patient incontinent of loose/mushy brown stool. Fariba
care given, wound care done and patient turned to R lateral 30 degree turn with help from JOHANNE Duran. Heels off bed with pillow. Protective heel foam dressings changed. Skin on heels intact. L heel blanchable mild red. Air chair cushion in chair.
Patient on an air overlay mattress. Current wound care appropriate. Will follow peripherally as needed.
--- NOTE | 2024-06-19 15:30 | WOUNDNOTE ---
R BUTTOCKS (LOWER); POSTERIOR UPPER THIGH
--- NOTE | 2024-06-19 15:30 | WOUNDNOTE ---
L THIGH (UPPER ANTERIOR)
--- NOTE | 2024-06-19 15:50 | CM ---
Insurance verified with admissions, Medicare is primary.
--- NOTE | 2024-06-19 17:15 | W.PN.HOSP.TC ---
Today's Communication/Plan
-
Assessment / Plan
Assessment / Plan
Ms. Michaela Pérez is a 73yoF pmh afib, HTN, HLD admitted for anemia.
CRE bacteremia with Enterobacter
-Suspected source was previous HD access; has since been replaced
-Completed IV cefiderocol 750 mg on 06/19
-Appreciate [facility] for testing this NDM-Enterobacter.
-Repeat blood cultures have shown no growth; awaiting send out cultures of isolate
Leukopenia
Absolute neutropenia
-Likely consumptive with bacteremia; B12 level was slightly low however
-Has been started on B12 supplementation
-resolved after 1 dose G-CSF 06/12
-Trend CBC and ANC count
-Neutropenic precautions
Intertrigo
-Currently on fluconazole 150 mg once weekly for 4-week course
Hypotension
-Unclear cause though chronic in nature; Home medications include midodrine
-Echocardiogram here was normal with preserved LVEF and no significant other findings
-Continue on home regimen and monitor vital
-- Titrate down midodrine begin 10 mg every 8 today
ESRD
-Oliguric, currently on HD every MWF. HD today per nephro
-Unclear etiology; C/B anemia, no history of bone mineral disease or acidemia
-Continue with dialysis via new HD access
Paroxysmal AFib
-Home medications include amiodarone and Eliquis
-No known history of electrophysiologic interventions
-Currently stable
H/O C. difficile colitis with colonization
-Remains on p.o. vancomycin 125 mg twice daily and probiotics
Chronic wounds
-L anterior upper thigh full thickness wound to subcutaneous layer, pink that can be visualized, undermines medially about 3cm, mod-large amount of murky serous drainage. Skin mild red around wound suspect r/t moisture.
-L medial upper thigh with a linear dermal ulcer suspect from rubbing and previous diaper use.
-Sacral crease stage 2 pressure injury along with MASD
-bilateral sacral buttocks stage 2 pressure injuries along with MASD.
-Perineal MASD.
-L medial posterior thigh linear red ecchymotic area.
-Small abrasions on R posterior ankle/calf. Heels slow to libby red/boggy.
-L anterior, lateral and posterior chest/back with scattered zoster lesions.
-follow wound care recs
DVT prophylaxis: Eliquis
Diet: Standard renal
CODE STATUS: DNR
Begin Dispo to SNF
Anticipated Discharge: 24 - 48 hours
Subjective/Interval History
-
Date of Service: June 19, 2024
seen and examined no new complaints no acute overnight events
Objective Data
-
Labs:
Laboratory Results
06/19/24
10:10
WBC 2.5 L
Hgb 9.0 L
Hct 29.2 L
Plt Count 173
Sodium 137
Potassium 2.9 L
Chloride 103
Carbon Dioxide 27
BUN 19 H
Creatinine 2.6 H
Glucose 63 L
Calcium 8.1 L
Vital Signs:
Vital Signs
Temp Pulse Resp BP Pulse Ox
97.6 F 82 18 121/61 94
06/19/24 15:05 06/19/24 15:05 06/19/24 15:05 06/19/24 15:05 06/19/24 15:05
I&O
06/18/24 06/19/24 06/20/24
06:59 06:59 06:59
Intake Total 600 / 600 1188 / 1188
Output Total 0 / 0 500 / 500
Balance 600 / 600 688 / 688
Physical Exam
-
General: Well Developed and Well Nourished
HEENT: Normocephalic and Atraumatic
Respiratory: Clear to Auscultation
Cardiac: Regular Rhythm
GI: Soft, Nontender and Nondistended
Neuro: Awake, Alert, Oriented and AO x 3
[2024-06-19 23:37] VITALS: BP 117/55
[2024-06-20 02:34] VITALS: BP 116/56
[2024-06-20] MEDS: ProAmatine 10 MG PO ×2 (02:35→09:04)
[2024-06-20 06:00] VITALS: BMI 31.6
[2024-06-20 07:05] VITALS: BP 124/58
[2024-06-20] MEDS: SYMBICORT 160/4.5 MCG INHALER 2 PUFF INH ×2 (07:41→21:23)
[2024-06-20] MEDS: HYDROPHOR 1 APPLIC TOPICAL (08:51)
[2024-06-20] MEDS: DEBROX EAR DROPS 1 DROP OTIC ×2 (08:51→19:50)
[2024-06-20] MEDS: VISBIOME 2 CAP PO (08:52)
[2024-06-20] MEDS: CYANOCOBALAMIN 1000 MCG IM (08:52)
[2024-06-20] MEDS: SINGULAIR 10 MG PO (08:53)
[2024-06-20] MEDS: PROTONIX 40 MG PO ×2 (08:53→19:51)
[2024-06-20] MEDS: ELIQUIS 5 MG PO ×2 (08:53→19:50)
[2024-06-20] MEDS: PACERONE 200 MG PO (08:53)
[2024-06-20] MEDS: NEURONTIN 100 MG PO (08:53)
[2024-06-20] MEDS: FIRVANQ 125 MG PO ×2 (08:54→19:50)
[2024-06-20] MEDS: FOLVITE 1 MG PO (08:54)
[2024-06-20] MEDS: CRESTOR 5 MG PO (08:54)
[2024-06-20] MEDS: ZINC OXIDE OINTMENT 1 APPLIC TOPICAL ×3 (08:55→20:10)
[2024-06-20] MEDS: DAKIN'S SOLUTION 0.125% 1/4 STRENGTH 473 ML TOPICAL (08:55)
[2024-06-20] MEDS: DESENEX/MITRAZOL/ZEASORB 1 APPLIC TOPICAL ×3 (08:56→22:10)
[2024-06-20 09:21] LABS: Hematocrit 30.8 % (37.0-47.0); Hemoglobin 9.6 g/dL (12.0-16.0); Mean Corp Hgb Conc. 31.2 g/dL (33.0-37.0); Mean Corpuscular Hgb 29.7 pg (27.0-31.0); Mean Corpuscular Volume 95.4 fL (81.0-99.0); Mean Platelet Volume 10.6 fL (7.4-10.4); Platelet Count 152 10^3/uL (130-400); Red Blood Cell Count 3.23 10^6/uL (4.20-5.40); Red Cell Dist. Width 21.3 % (11.5-14.5); White Blood Cell Count 3.3 10^3/uL (4.8-10.8)
[2024-06-20 09:43] LABS: Blood Urea Nitrogen 7 mg/dl (7-17); Calcium 8.2 mg/dl (8.4-10.2); Carbon Dioxide 31 mmol/L (22-30); Chloride 101 mmol/L (98-107); Estimated Creatinine Clearance 29 ml/min; Glucose 78 mg/dl (70-99); Potassium 3.2 mmol/L (3.5-5.1); Sodium 138 mmol/L (135-145); eGFR 31.66
[2024-06-20] MEDS: KCL 40 MEQ PO (10:50)
--- NOTE | 2024-06-20 11:16 | W.PN.ID1 ---
Date of Service
Date of Service: June 20, 2024
Today's Communication
- c/w fluconazole 150 mg PO q week x4 weeks total (06/14, 06/21, 06/28, 07/05)
-continue oral vanc BID given known colonization with c diff through 06/24/24.
-ID will sign off.
Assessment / Plan
Leukopenia -s/p 1 dose G-CSF 06/12
CRE - Enterobacter (MDRO) Bacteremia
Suspected HD cath source
Hypotension - possibly improving
Shingles below L breast - resolved, healing wound under the breast
ESRD on HD
Reported allergy to cephalexin (unknown)
Replaced L hip
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
- s/p empiric ceftazidime/avibactam/aztreonam x 5 days then switched to cefiderocol 06/08 due to neturopenia
- Appreciate [facility] for testing this NDM-Enterobacter.
Although no formal interpretation, organism appears sensitive to aztreonam/avibactam combo.
- Completed >14d of effective therapy (06/03 to 06/19)
- Leukopenia improving off cefiderocol
- 05/31 Repeat blood cx's x 2 (before meropenem) - no growth
- HD cath removed 06/01 - cath tip culture sensitivity very low, approximately 20%; most likely source despite a negative culture
- has permanent HD cath
- enhanced contact precaution
Intertrigo
- c/w fluconazole 150 mg PO q week x4 weeks total (06/14, 06/21, 06/28, 07/05)
- continue topical miconazole and zinc oxide
Colonization with C Difficile
- continue oral vanc BID given known colonization with c diff through 06/24/24.
- continue enhanced contact precautions for C difficile while in house; also plan to continue precautions given CRE
ID will sign off.
Chief Complaint
-: Bacteremia (due to MDRO) and Other (sepsis, asymptomatic bacteruria)
Subjective / Review of Systems
No specific complaints.
Vital Signs / Physical Exam
Vital Signs
Vital Signs
Temp Pulse Resp BP Pulse Ox
97.9 F 83 16 124/58 97
06/20/24 07:05 06/20/24 07:45 06/20/24 07:45 06/20/24 08:53 06/20/24 07:45
Physical Exam
Constitutional: No Acute Distress and Comfortable
Pulmonary: Clear
Gastrointestinal: Soft, Non Tender, Non Distended and Normal Bowel Sounds
Neurological: AO x 3
Objective Data
Lab Data
Lab Results
06/20/24 08:29
06/20/24 08:29
Estimated Creat Clear 29 ml/min 06/20/24 08:29
Total Bilirubin 0.5 mg/dl (0.2-1.3) 05/26/24 16:18
AST 22 U/L (14-36) 05/26/24 16:18
ALT 26 U/L (0-35) 05/26/24 16:18
Alkaline Phosphatase 99 U/L (38-126) 05/26/24 16:18
Most recent labs reviewed.
Micro Results:
05/29/24 12:11 Miscellaneous Microbiology Test - Final
Blood/Venous
05/29/24 12:43 Blood Culture - Final
Blood/Venous Enterobacter species
Gram Stain - Final
05/29/24 12:11 Blood Culture - Final
Blood/Venous Enterobacter cloacae
Enterobacter cloacae#2
Gram Stain - Final
06/01/24 04:09 Blood Culture - Final
Blood/Venous No Growth - Final Report
06/01/24 04:09 Blood Culture - Final
Blood/Venous No Growth - Final Report
05/31/24 06:08 Blood Culture - Final
Blood/Venous No Growth - Final Report
05/31/24 06:08 Blood Culture - Final
Blood/Venous No Growth - Final Report
06/01/24 14:45 Catheter Tip Culture - Final
Dialysis Line No Growth After 72 Hours
05/26/24 17:24 Salmonella/Shigella Culture - Final
Feces/Stool No Salmonella, Shigella, Aeromonas or Plesiomonas species
isolated.
Campylobacter Culture - Final
No Campylobacter species isolated.
Shiga Toxin Test - Final
No E. coli Shiga Toxin 1 or 2 detected.
05/26/24 17:24 Urine Culture - Final
Urine Klebsiella pneumoniae
05/26/24 23:43 MRSA Screen - Final
Nose Staph aureus MRSA
05/26/24 17:24 C. difficile GDH Antigen & Toxins - Final
Feces/Stool C. difficile antigen positive, toxin negative.
Clostridium difficile present, but toxin not detected.
Patient may be a carrier, colonized with nontoxinogenic
strain or the level of toxin in sample is below detection
limits. This information should be used in conjunction with
the patient's clinical history.
- Final
Negative for Norovirus GI and GII.
05/29/24 CT a/P:
1. No CT evidence for acute retroperitoneal or intraperitoneal hemorrhage.
2. Moderate to severe bilateral renal cortical volume loss and severe scarring in the lateral cortex of the left kidney consistent with END-STAGE RENAL DISEASE.
3. Severe calcific atherosclerotic plaque in the abdominal aorta and common iliac arteries.
4. Mild splenomegaly.
5. Severe diverticulosis in the sigmoid colon.
6. Small bilateral pleural effusions with adjacent bilateral lower lobe airspace consolidation (possibly right lower lobe pneumonia).
7. Severe calcific atherosclerotic plaque in the coronary arteries and thoracic aorta.
8. Mild cardiomegaly.
9. 6.8 mm pulmonary nodule in the lateral segment of the right middle lobe (possibly infectious or inflammatory in etiology). A follow-up chest CT examination in 6-12 months is recommended
10. Moderate anasarca.
11. Moderate to severe paraspinal and pelvic muscle atrophy.
12. Severe discogenic degenerative disease at L4/L5 and L5/S1.
--- NOTE | 2024-06-20 14:55 | W.PN.HOSP.TC ---
Today's Communication/Plan
-
Assessment / Plan
Assessment / Plan
General: Well Developed and Well Nourished
HEENT: Normocephalic and Atraumatic
Respiratory: Clear to Auscultation
Cardiac: Regular Rhythm
GI: Soft, Nontender and Nondistended
Neuro: Awake, Alert, Oriented and AO x 3
CRE bacteremia with Enterobacter
-Suspected source was previous HD access; has since been replaced
-Completed IV cefiderocol 750 mg on 06/19
-Appreciate [facility] for testing this NDM-Enterobacter.
-Repeat blood cultures have shown no growth; awaiting send out cultures of isolate
Leukopenia
Absolute neutropenia
-Likely consumptive with bacteremia; B12 level was slightly low however
-Has been started on B12 supplementation
-resolved after 1 dose G-CSF 06/12
-Trend CBC and ANC count
-Neutropenic precautions
Intertrigo
-Currently on fluconazole 150 mg once weekly for 4-week course
Hypotension
-Unclear cause though chronic in nature; Home medications include midodrine
-Echocardiogram here was normal with preserved LVEF and no significant other findings
-Continue on home regimen and monitor vital
-- Titrate down midodrine begin 5 mg every 8 today
ESRD
-Oliguric, currently on HD every MWF. HD today per nephro
-Unclear etiology; C/B anemia, no history of bone mineral disease or acidemia
-Continue with dialysis via new HD access
Paroxysmal AFib
-Home medications include amiodarone and Eliquis
-No known history of electrophysiologic interventions
-Currently stable
H/O C. difficile colitis with colonization
-Remains on p.o. vancomycin 125 mg twice daily and probiotics
Chronic wounds
-L anterior upper thigh full thickness wound to subcutaneous layer, pink that can be visualized, undermines medially about 3cm, mod-large amount of murky serous drainage. Skin mild red around wound suspect r/t moisture.
-L medial upper thigh with a linear dermal ulcer suspect from rubbing and previous diaper use.
-Sacral crease stage 2 pressure injury along with MASD
-bilateral sacral buttocks stage 2 pressure injuries along with MASD.
-Perineal MASD.
-L medial posterior thigh linear red ecchymotic area.
-Small abrasions on R posterior ankle/calf. Heels slow to libby red/boggy.
-L anterior, lateral and posterior chest/back with scattered zoster lesions.
-follow wound care recs
DVT prophylaxis: Eliquis
Diet: Standard renal
CODE STATUS: DNR
Begin Dispo to SNF
[facility] plans to except back on Saturday once able to confirm with HD provider
Anticipated Discharge: > 48 hours
Subjective/Interval History
-
Date of Service: June 20, 2024
Seen and examined. No new complaints. No acute overnight events.
Objective Data
-
Labs:
Laboratory Results
06/20/24
08:29
WBC 3.3 L
Hgb 9.6 L
Hct 30.8 L
Plt Count 152
Sodium 138
Potassium 3.2 L
Chloride 101
Carbon Dioxide 31 H
BUN 7
Creatinine 1.7 H
Glucose 78
Calcium 8.2 L
Vital Signs:
Vital Signs
Temp Pulse Resp BP Pulse Ox
97.9 F 83 16 124/58 97
06/20/24 07:05 06/20/24 07:45 06/20/24 07:45 06/20/24 08:53 06/20/24 07:45
I&O
06/19/24 06/20/24 06/21/24
06:59 06:59 06:59
Intake Total 1188 / 1188 660 / 660
Output Total 500 / 500 450 / 450
Balance 688 / 688 660 / 660 -275 / -450
[2024-06-20 15:33] VITALS: BP 151/70
[2024-06-20] MEDS: ProAmatine PO (15:47)
--- NOTE | 2024-06-20 16:21 | W.PN.NEPH.PH ---
Today's Communication / Plan
-
HD saturday
Assessment/Plan
-
Assessment:
Enterobacter bacteremia/GNR - Panresistant
Intertrigo
Hypotension on midodrine
?ESRD on HD-MWF
Anemia -GIB
Chronic hypoxic respiratory insufficiency suspect related to chronic hospitalization, deconditioning
acute urinary retention
Asymptomatic bacteruria
parox a-fib
herpes zoster
hyperlipidemia
Hx c-diff colitis
osteoarthritis
Chronic wounds
Plan:
Enterobactor bacteremia -MRDO,
on wkly diflucan till 07/05, po Vanc
HD tMonday
BPs are improving, weaning midodrine
replace k , may need daily kcl
-
-
Date of Service: June 20, 2024
CC / HPI / ROS
-
Chief Complaint:
ESRD
History of Present Illness:
BP increasing trend midodrine lowered
tolerated HD yesterday
K low 3.2
SC once 450cc
Review of Systems:
No chest pain or shortness of breath
no n/v
Labs
-
Labs:
WBC 3.3 10^3/uL (4.8-10.8) L 06/20/24 08:29
RBC 3.23 10^6/uL (4.20-5.40) L 06/20/24 08:
Hgb 9.6 g/dL (12.0-16.0) L 06/20/24 08:
Hct 30.8 % (37.0-47.0) L 06/20/24 08:29
Plt Count 152 10^3/uL (130-400) 06/20/24 08:
Sodium 138 mmol/L (135-145) 06/20/24 08:
Potassium 3.2 mmol/L (3.5-5.1) L 06/20/24 08:29
Chloride 101 mmol/L (98-107) 06/20/24 08:29
Carbon Dioxide 31 mmol/L (22-30) H 06/20/24 08:29
BUN 7 mg/dl (7-17) 06/20/24 08:29
Creatinine 1.7 mg/dL (0.6-1.0) H 06/20/24 08:
eGFR 31.66 06/20/24 08:29
Glucose 78 mg/dl (70-99) 06/20/24 08:29
Calcium 8.2 mg/dl (8.4-10.2) L 06/20/24 08:29
Albumin 2.2 g/dl (3.5-5.0) L 05/26/24 16:18
Physical Exam
-
Vital Signs:
Vital Signs
Temp Pulse Resp BP Pulse Ox
97.5 F 83 18 151/70 97
06/20/24 15:33 06/20/24 15:33 06/20/24 15:33 06/20/24 15:47 06/20/24 15:33
Cardiovascular:: Regular rate and rhythm
Respiratory:: Bilateral: CTA
Lung Excursion:: Normal
Abdomen:: Nontender and Soft
Extremity Edema:: None: Bilateral:
Griffiths Catheter: No
[2024-06-20 23:55] VITALS: BP 114/57
[2024-06-21 06:00] VITALS: BMI 31.3
[2024-06-21 07:05] VITALS: BP 112/56
[2024-06-21] MEDS: SYMBICORT 160/4.5 MCG INHALER 2 PUFF INH ×2 (07:32→21:21)
[2024-06-21] MEDS: PROTONIX 40 MG PO ×2 (08:02→19:34)
[2024-06-21] MEDS: PACERONE 200 MG PO (08:03)
[2024-06-21] MEDS: FOLVITE 1 MG PO (08:03)
[2024-06-21] MEDS: NEURONTIN 100 MG PO (08:03)
[2024-06-21] MEDS: VISBIOME 2 CAP PO (08:03)
[2024-06-21] MEDS: ProAmatine 5 MG PO ×2 (08:03→12:35)
[2024-06-21] MEDS: DEBROX EAR DROPS 1 DROP OTIC ×2 (08:03→19:34)
[2024-06-21] MEDS: ELIQUIS 5 MG PO ×2 (08:03→19:34)
[2024-06-21] MEDS: CYANOCOBALAMIN 1000 MCG IM (08:04)
[2024-06-21] MEDS: CRESTOR 5 MG PO (08:05)
[2024-06-21] MEDS: HYDROPHOR 1 APPLIC TOPICAL (08:05)
[2024-06-21] MEDS: FIRVANQ 125 MG PO ×2 (08:05→19:34)
[2024-06-21] MEDS: DAKIN'S SOLUTION 0.125% 1/4 STRENGTH 473 ML TOPICAL (08:06)
[2024-06-21] MEDS: DESENEX/MITRAZOL/ZEASORB 1 APPLIC TOPICAL ×3 (08:07→22:30)
[2024-06-21] MEDS: ZINC OXIDE OINTMENT 1 APPLIC TOPICAL ×3 (08:08→22:30)
[2024-06-21] MEDS: SINGULAIR 10 MG PO (08:12)
[2024-06-21] MEDS: DIFLUCAN 150 MG PO (08:27)
--- NOTE | 2024-06-21 08:37 | CM ---
Pt is medically stable for d/c.
Per Adrianne/[facility], pt can be accepted back tomorrow
Updated hospitalist.
Gabriella Betancourt
Report: [phone]

Plan: [facility]. HD at facility
[2024-06-21 15:05] VITALS: BP 130/67
--- NOTE | 2024-06-21 15:51 | W.PN.NEPH.PH ---
Today's Communication / Plan
-
HD tomorrow
Assessment/Plan
-
Assessment:
Enterobacter bacteremia/GNR - Panresistant
Intertrigo
Hypotension on midodrine
?ESRD on HD-MWF
Anemia -GIB
Chronic hypoxic respiratory insufficiency suspect related to chronic hospitalization, deconditioning
acute urinary retention
Asymptomatic bacteruria
parox a-fib
herpes zoster
hyperlipidemia
Hx c-diff colitis
osteoarthritis
Chronic wounds
Plan:
Enterobactor bacteremia -MRDO, cfompleted abx
on wkly diflucan till 07/05, po Vanc
HD tMonday
BPs are improving, wean midodrine as able
high k bath
-
-
Date of Service: June 21, 2024
CC / HPI / ROS
-
Chief Complaint:
ESRD
History of Present Illness:
BP stable on lower dose midodrine
no fever
SC once 450cc on 06/20
Review of Systems:
No chest pain or shortness of breath
no n/v
Labs
-
Labs:
WBC 3.3 10^3/uL (4.8-10.8) L 06/20/24 08:
RBC 3.23 10^6/uL (4.20-5.40) L 06/20/24 08:
Hgb 9.6 g/dL (12.0-16.0) L 06/20/24 08:
Hct 30.8 % (37.0-47.0) L 06/20/24 08:29
Plt Count 152 10^3/uL (130-400) 06/20/24 08:
Sodium 138 mmol/L (135-145) 06/20/24 08:
Potassium 3.2 mmol/L (3.5-5.1) L 06/20/24 08:29
Chloride 101 mmol/L (98-107) 06/20/24 08:29
Carbon Dioxide 31 mmol/L (22-30) H 06/20/24 08:29
BUN 7 mg/dl (7-17) 06/20/24 08:29
Creatinine 1.7 mg/dL (0.6-1.0) H 06/20/24 08:29
eGFR 31.66 06/20/24 08:29
Glucose 78 mg/dl (70-99) 06/20/24 08:29
Calcium 8.2 mg/dl (8.4-10.2) L 06/20/24 08:29
Albumin 2.2 g/dl (3.5-5.0) L 05/26/24 16:18
Physical Exam
-
Vital Signs:
Vital Signs
Temp Pulse Resp BP Pulse Ox
97.4 F 80 16 122/65 97
06/21/24 07:05 06/21/24 07:35 06/21/24 07:35 06/21/24 12:35 06/21/24 07:35
Cardiovascular:: Regular rate and rhythm
Respiratory:: Bilateral: CTA (decdreased)
Lung Excursion:: Normal
Abdomen:: Nontender and Soft
Extremity Edema:: None: Bilateral: (trace)
Griffiths Catheter: No
--- NOTE | 2024-06-21 15:52 | W.PN.HOSP.TC ---
Today's Communication/Plan
-
Discharge back to [facility] when bed available and cleared by HD provider at [facility] that she can return
Assessment / Plan
Assessment / Plan
General: Well Developed and Well Nourished
HEENT: Normocephalic and Atraumatic
Respiratory: Clear to Auscultation
Cardiac: Regular Rhythm
GI: Soft, Nontender and Nondistended
Neuro: Awake, Alert, Oriented and AO x 3
CRE bacteremia with Enterobacter
-Suspected source was previous HD access; has since been replaced
-Completed IV cefiderocol 750 mg on 06/19
-Appreciate [facility] for testing this NDM-Enterobacter.
-Repeat blood cultures have shown no growth; awaiting send out cultures of isolate
Leukopenia
Absolute neutropenia
-Likely consumptive with bacteremia; B12 level was slightly low however
-Has been started on B12 supplementation
-resolved after 1 dose G-CSF 06/12
-Trend CBC and ANC count
-Neutropenic precautions
Intertrigo
-Currently on fluconazole 150 mg once weekly for 4-week course
Hypotension
-Unclear cause though chronic in nature; Home medications include midodrine
-Echocardiogram here was normal with preserved LVEF and no significant other findings
-Continue on home regimen and monitor vital
-- Titrate down midodrine begin 5 mg every 8 today
ESRD
-Oliguric, currently on HD every MWF. HD today per nephro
-Unclear etiology; C/B anemia, no history of bone mineral disease or acidemia
-Continue with dialysis via new HD access
Paroxysmal AFib
-Home medications include amiodarone and Eliquis
-No known history of electrophysiologic interventions
-Currently stable
H/O C. difficile colitis with colonization
-Remains on p.o. vancomycin 125 mg twice daily and probiotics
Chronic wounds
-L anterior upper thigh full thickness wound to subcutaneous layer, pink that can be visualized, undermines medially about 3cm, mod-large amount of murky serous drainage. Skin mild red around wound suspect r/t moisture.
-L medial upper thigh with a linear dermal ulcer suspect from rubbing and previous diaper use.
-Sacral crease stage 2 pressure injury along with MASD
-bilateral sacral buttocks stage 2 pressure injuries along with MASD.
-Perineal MASD.
-L medial posterior thigh linear red ecchymotic area.
-Small abrasions on R posterior ankle/calf. Heels slow to libby red/boggy.
-L anterior, lateral and posterior chest/back with scattered zoster lesions.
-follow wound care recs
DVT prophylaxis: Eliquis
Diet: Standard renal
CODE STATUS: DNR
Begin Dispo to SNF
[facility] [facility] plans to except back on Saturday once able to confirm with HD provider
Anticipated Discharge: Within 24 hours
Subjective/Interval History
-
Date of Service: June 21, 2024
Seen and examined. No new complaints. No acute overnight events.
Objective Data
-
Vital Signs:
Vital Signs
Temp Pulse Resp BP Pulse Ox
97.4 F 80 16 122/65 97
06/21/24 07:05 06/21/24 07:35 06/21/24 07:35 06/21/24 12:35 06/21/24 07:35
I&O
06/20/24 06/21/24 06/22/24
06:59 06:59 06:59
Intake Total 660 / 660 660 / 660
Output Total 450 / 450
Balance 660 / 660 210 / 210
[2024-06-21] MEDS: ProAmatine PO (16:00)
[2024-06-21 19:30] VITALS: BMI 31.3
[2024-06-21 23:03] VITALS: BP 131/56
[2024-06-22 06:00] VITALS: BMI 31.1
[2024-06-22 07:05] VITALS: BP 126/75
[2024-06-22] MEDS: SYMBICORT 160/4.5 MCG INHALER 2 PUFF INH (07:17)
[2024-06-22] MEDS: ProAmatine PO ×2 (08:00→16:58)
[2024-06-22 08:03] LABS: Hematocrit 30.9 % (37.0-47.0); Hemoglobin 9.3 g/dL (12.0-16.0); Mean Corp Hgb Conc. 30.1 g/dL (33.0-37.0); Mean Corpuscular Hgb 29.3 pg (27.0-31.0); Mean Corpuscular Volume 97.5 fL (81.0-99.0); Mean Platelet Volume 10.3 fL (7.4-10.4); Platelet Count 152 10^3/uL (130-400); Red Blood Cell Count 3.17 10^6/uL (4.20-5.40); Red Cell Dist. Width 21.5 % (11.5-14.5); White Blood Cell Count 2.7 10^3/uL (4.8-10.8)
[2024-06-22 08:22] LABS: Blood Urea Nitrogen 17 mg/dl (7-17); Calcium 8.6 mg/dl (8.4-10.2); Carbon Dioxide 27 mmol/L (22-30); Chloride 104 mmol/L (98-107); Estimated Creatinine Clearance 19 ml/min; Glucose 76 mg/dl (70-99); Potassium 3.2 mmol/L (3.5-5.1); Sodium 139 mmol/L (135-145); eGFR 19.02
[2024-06-22] MEDS: FLEXBUMIN 25% FOR HEMODIALYSIS 12.5 GRAMS IV ×2 (08:46→10:10)
[2024-06-22] MEDS: RETACRIT 4000 UNITS IV (08:46)
--- NOTE | 2024-06-22 10:03 | W.PN.NEPH.HD ---
Assessment
-
Patient seen on dialysis
Systolic blood pressure 105, was given midodrine prior to this morning
Patient will be discharged back to [facility] today after dialysis after prolonged hospitalization
Progress Note - Hemodialysis
-
Date of Service: June 22, 2024
Duration: 30 minutes and 3 hours
Potassium Bath: 4
Calcium Bath: 2.5
Opti-Dialyzer: 160
Ultrafiltration: Other (1kg as tolerated)
Blood Flow: 400
Dialysate Flow: 600
Heparin: none
EPO: 4K
[2024-06-22] MEDS: MANNITOL 25% 12.5 GRAMS IV (10:09)
--- NOTE | 2024-06-22 10:59 | CM ---
CM reviewed chart, patient for HD today, then discharge to [facility]. Updated labs, dialysis, flowsheets faxed to [facility]. Patient scheduled for 5:00 p.m. ambulance transport. CM placed call to patients daughterTania, discussed
discharge plan, reviewed IMM, agreeable to discharge, form placed in chart. CM will continue to follow for all discharge planning needs.
Plan; [facility], 5:00 p.m. ambulance transport
[facility]
Report: [phone]
--- NOTE | 2024-06-22 11:35 | W.PN.HOSP.TC ---
Today's Communication/Plan
-
Discharge to SNF today
Assessment / Plan
Assessment / Plan
CRE bacteremia with Enterobacter
-Suspected source was previous HD access; has since been replaced
-Completed IV cefiderocol 750 mg on 06/19
-Appreciate [facility] for testing this NDM-Enterobacter.
-Repeat blood cultures have shown no growth; awaiting send out cultures of isolate
Leukopenia
Absolute neutropenia
-Likely consumptive with bacteremia; B12 level was slightly low however
-Has been started on B12 supplementation
-resolved after 1 dose G-CSF 06/12
-Trend CBC and ANC count
-Neutropenic precautions
Intertrigo
-Currently on fluconazole 150 mg once weekly for 4-week course (last dose 07/05/24)
Hypotension
-Unclear cause though chronic in nature; Home medications include midodrine
-Echocardiogram here was normal with preserved LVEF and no significant other findings
-Continue on home regimen and monitor vital
-- Titrate down midodrine begin 5 mg every 8 today
ESRD
-Oliguric, currently on HD every MWF. HD today per nephro
-Unclear etiology; C/B anemia, no history of bone mineral disease or acidemia
-Continue with dialysis via new HD access
Paroxysmal AFib
-Home medications include amiodarone and Eliquis
-No known history of electrophysiologic interventions
-Currently stable
H/O C. difficile colitis with colonization
-Remains on p.o. vancomycin 125 mg twice daily (through 06/24) and probiotics
Chronic wounds
-L anterior upper thigh full thickness wound to subcutaneous layer, pink that can be visualized, undermines medially about 3cm, mod-large amount of murky serous drainage. Skin mild red around wound suspect r/t moisture.
-L medial upper thigh with a linear dermal ulcer suspect from rubbing and previous diaper use.
-Sacral crease stage 2 pressure injury along with MASD
-bilateral sacral buttocks stage 2 pressure injuries along with MASD.
-Perineal MASD.
-L medial posterior thigh linear red ecchymotic area.
-Small abrasions on R posterior ankle/calf. Heels slow to libby red/boggy.
-L anterior, lateral and posterior chest/back with scattered zoster lesions.
-follow wound care recs
DVT prophylaxis: Eliquis
Diet: Standard renal
CODE STATUS: DNR
Anticipated Discharge: Today
Subjective/Interval History
-
Date of Service: June 22, 2024
Seen and examined at the bedside while having dialysis. No acute events overnight. AFVSS this morning
She states she feels well, is ready to leave the hospital and began physical therapy
Denies any acute complaints
Objective Data
-
Labs:
Laboratory Results
06/22/24 06/22/24
07:15 07:16
WBC 2.7 L
Hgb 9.3 L
Hct 30.9 L
Plt Count 152
Sodium 139
Potassium 3.2 L
Chloride 104
Carbon Dioxide 27
BUN 17
Creatinine 2.6 H
Glucose 76
Calcium 8.6
Vital Signs:
Vital Signs
Temp Pulse Resp BP Pulse Ox
97.7 F 83 18 126/75 95
06/22/24 07:05 06/22/24 07:05 06/22/24 07:05 06/22/24 07:05 06/22/24 07:05
I&O
06/21/24 06/22/24 06/23/24
06:59 06:59 06:59
Intake Total 660 / 660 1380 / 1380
Output Total 450 / 450 400 / 400
Balance 210 / 210 980 / 980
Review of Systems
-
History Source: Patient
All other systems: Reviewed and negative
Physical Exam
-
General: Well Developed, No Apparent Distress, Comfortable and Obese
HEENT: Normocephalic, Atraumatic, Moist Mucous Membranes and Anicteric
Respiratory: Clear to Auscultation and Non Labored Respirations
Cardiac: Regular Rhythm and S1/S2; Negative Murmur, Rub or Gallop
GI: Soft, Nontender, Nondistended and Normal Bowel Sounds
Musculoskeletal: No Clubbing, No Cyanosis and No Edema
Skin: Warm and Dry; Negative Rash
Neuro: AO x 3 and Nonfocal/Grossly Intact
Psych: Calm
Data Reviewed
-
Labs: Labs Reviewed by me, Discussed with Physician (Net Maker) and Discussed with Patient
[2024-06-22 11:42] VITALS: BP 114/73
[2024-06-22] MEDS: PACERONE 200 MG PO (11:43)
[2024-06-22] MEDS: VISBIOME 2 CAP PO (11:43)
[2024-06-22] MEDS: SINGULAIR 10 MG PO (11:43)
[2024-06-22] MEDS: ProAmatine 5 MG PO (11:45)
[2024-06-22] MEDS: NEURONTIN 100 MG PO (11:46)
[2024-06-22] MEDS: CRESTOR 5 MG PO (11:46)
[2024-06-22] MEDS: ELIQUIS 5 MG PO (11:46)
[2024-06-22] MEDS: PROTONIX 40 MG PO (11:46)
[2024-06-22] MEDS: FOLVITE 1 MG PO (11:46)
[2024-06-22] MEDS: CYANOCOBALAMIN 1000 MCG IM (11:47)
[2024-06-22] MEDS: DEBROX EAR DROPS 1 DROP OTIC (11:50)
[2024-06-22] MEDS: FIRVANQ 125 MG PO (11:53)
[2024-06-22] MEDS: HYDROPHOR 1 APPLIC TOPICAL (12:37)
[2024-06-22] MEDS: DAKIN'S SOLUTION 0.125% 1/4 STRENGTH 473 ML TOPICAL (12:38)
[2024-06-22] MEDS: ZINC OXIDE OINTMENT 1 APPLIC TOPICAL ×2 (12:38→16:21)
[2024-06-22] MEDS: DESENEX/MITRAZOL/ZEASORB 1 APPLIC TOPICAL ×2 (12:38→16:20)
[2024-06-22 15:20] VITALS: BP 109/53
[2024-06-22 16:57] VITALS: BP 136/92
--- NOTE | 2024-06-23 15:18 | W.DCSUMMARY ---
Discharge Summary
Discharge Data
Date of Admission: 05/26/24
Date of Discharge: 06/22/24
-
Pending Results: No
Hospital Course
73-year-old female with end-stage renal disease on HD M/W/F, paroxysmal AF on Eliquis, history of C. difficile colitis with colonization, chronic lower extremity sacral wounds presented to the hospital with fevers. Blood cultures taken upon
admission and started on broad-spectrum antibiotics. Blood culture ultimately returned positive for CRE Enterobacter with garcia resistance to common antibiotic options. Infectious disease was consulted and recommended extended spectrum antibiotics.
Was started on IV cefiderocol, cultures isolates were sent for further testing, and species was sent to [facility] for testing. Once sensitivities were clarified she was continued on antibiotic course which was completed while in the hospital.
The source of her bacteremia was determined to be her infected hemodialysis port. Cultures confirmed finding. Hemodialysis access was removed and subsequently exchanged after repeat blood cultures were deemed negative.
She was started on 4-week regimen of fluconazole every week for intertrigo, completed a course of valacyclovir for shingles, and had 2 days remaining on oral vancomycin regimen for C. difficile colonization. Was discharged to SNF with instructions
for ongoing care
Discharge Plan
-
Patient Disposition: [facility] Care/SNF
Discharge Diagnosis/Procedures: CRE bacteremia from infected HD port
Status post HD access exchange
End-stage renal disease
Condition: Good
Diet: Other diet
Additional Diets: Standard renal diet
Activity: As tolerated
Driving Restrictions: Not until seen by your Dr
Bathing Restrictions: None
Blood Work: Monitor BMP for dialysis
Other Services: PT and OT
Activity Restrictions/Additional Instructions:
Wound Care Instructions
L upper anterior thigh wound-pack with 1/4 strength Dakin's moistened gauze packing, cover with dry gauze and ABD pad, secure with minimal silicone tape. Change daily and prn drainage/soilage.
Sacral/buttocks-clean with saline or soap and water, miconazole powder to surrounding red skin bid, apply zinc barrier ointment BID and prn incontinence, cover/tuck with ABD pad or silicone foam as needed for more protection.
L calf linear red camelia, abrasions RLE-clean with saline, apply silicone border foam, change q 3 days and prn loosened dressing.
L chest, flank, back lesions-clean with saline or soap and water, pat dry, cover with ABD pad secured with minimal silicone tape daily and prn loosened dressing(add adaptic prn adherent dressing).
Air mattress
pressure redistributing chair cushion (i.e. Bariatric air chair cushion).
Elevate heels off bed
Turning schedule.
Follow up at wound care center call for an appointment.
Instructions: Sepsis in adults
Referrals:
Devon Friedman MD [Family Provider] -
Ventura Gomez MD [Active] - (as needed if referred by your primary care provider for cytopenias)
Additional Discharge Medication Instructions: Continue vitamin B12 1000 mcg daily
Continue midodrine 5 mg 3 times daily
Continue pantoprazole 40 mg twice daily, can de-escalate to once daily after 1 month
Continue vancomycin solution twice daily through the end of 06/24/2024
Continue fluconazole 150 mg weekly for 2 more doses (06/28, 07/05)
Prescriptions:
New
fluconazole 150 mg Tablet
150 mg PO WEEKLY 14 Days Qty: 2 0RF
Rx Instructions:
06/28/24, 07/05/24
vancomycin 50 mg/mL Recon Soln
125 mg PO BID 2 Days Qty: 10 0RF
Rx Instructions:
Last day 06/24/24
midodrine 5 mg Tablet
5 mg PO TID @ 0800,1200,1700 30 Days Qty: 90 0RF
pantoprazole 40 mg Tablet,Delayed Release (Dr/Ec)
40 mg PO BID 30 Days Qty: 60 0RF
Lactobac/Bifidobac [Visbiome]
2 cap PO DAILY 30 Days 0RF
cyanocobalamin (vitamin B-12) 1,000 mcg capsule
1,000 mcg PO DAILY 30 Days Qty: 30 0RF
Continued
amiodarone 200 mg Tablet
200 mg PO DAILY
miconazole nitrate 2 % Powder
1 applic TOPICAL TID
acetaminophen 500 mg Tablet
500 mg PO Q8HPRN PRN (Reason: mild pain)
magnesium hydroxide [Milk of Magnesia] 400 mg/5 mL Suspension
30 ml PO [id number] PRN (Reason: no bm 3 days)
bisacodyl 10 mg Suppository
10 mg OK DAILYPRN PRN (Reason: if no result from mom)
folic acid 1 mg Tablet
1 mg PO DAILY
montelukast 10 mg Tablet
10 mg PO DAILY
gabapentin 100 mg Capsule
100 mg PO DAILY
albuterol sulfate [Ventolin HFA] 90 mcg/actuation Hfa Aerosol Inhaler
2 puff INHALATION R Q6HPRN PRN (Reason: wheezing)
brompheniramine-phenylephrine 2-5 mg/5 mL Liquid
5 ml PO Q4HPRN PRN (Reason: cough/congestion)
rosuvastatin 5 mg Tablet
5 mg PO DAILY
zinc oxide 10 % Cream
1 applic TOPICAL TID
Rx Instructions:
L abdominal fold/sacral gluteal cleft
zinc oxide 10 % Cream
1 applic TOPICAL DAILYPRN PRN (Reason: soilage)
Rx Instructions:
left abdominal fold/sacral gluteal cleft
ferrous gluconate 324 mg (38 mg iron) Tablet
324 mg PO Q48H
melatonin 5 mg Tablet
5 mg PO HS
Dulera 200-5 mcg/actuation Hfa Aerosol Inhaler
2 puff INHALATION R BID
Eliquis 5 mg Tablet
5 mg PO BID
Discontinued
valacyclovir 500 mg Tablet
500 mg PO DAILY
Patient Comments:
05/26/24: take for 1 week from 05/22/24-05/30/24
pantoprazole 40 mg Tablet,Delayed Release (Dr/Ec)
40 mg PO DAILY
midodrine 10 mg Tablet
10 mg PO TID
Rx Instructions:
Hold for SBP>130
Discharge Orders:
Discharge Patient (As Directed); Ordered 06/22/24
Ordered By: Florencio Townsend
Discharge Date and Time
Discharge Date/Time: 06/22/24 18:46
Print Language: KOSOVAN
== END 2024-06-22 18:46 | DRG 377 ==
LOC: 4 WEST ACU 19:47
PROVIDERS: Internal Medicine; Internal Medicine Nephrology; Nurse Practitioner Family; Physician Assistant; Radiology Vascular & Interventional Radiology; Registered Nurse; Specialist; Student in an Organized Health Care Education/Training Program; ADMITTING PHYSICIAN Internal Medicine; ATTENDING PHYSICIAN Internal Medicine; CONSULT PHYSICIAN Internal Medicine Gastroenterology; CONSULT PHYSICIAN Student in an Organized Health Care Education/Training Program; EMERGENCY PHYSICIAN Emergency Medicine; FAMILY PHYSICIAN Internal Medicine; OTHER PHYSICIAN Internal Medicine Hematology & Oncology; OTHER PHYSICIAN Specialist
PROC: 30233N1 Transfusion of Nonautologous Red Blood Cells into Peripheral Vein, Percutaneous Approach (ICD-10-PCS; 2024-05-26)
PROC: 5A1D70Z Performance of Urinary Filtration, Intermittent, Less than 6 Hours Per Day (ICD-10-PCS; 2024-05-27)
PROC: 05PY33Z Removal of Infusion Device from Upper Vein, Percutaneous Approach (ICD-10-PCS; 2024-06-01)
PROC: 0JPT3XZ Removal of Tunneled Vascular Access Device from Trunk Subcutaneous Tissue and Fascia, Percutaneous Approach (ICD-10-PCS; 2024-06-01)
PROC: 02H633Z Insertion of Infusion Device into Right Atrium, Percutaneous Approach (ICD-10-PCS; 2024-06-04)
PROC: 0JH63XZ Insertion of Tunneled Vascular Access Device into Chest Subcutaneous Tissue and Fascia, Percutaneous Approach (ICD-10-PCS; 2024-06-11)
PROC: 02HV33Z Insertion of Infusion Device into Superior Vena Cava, Percutaneous Approach (ICD-10-PCS; 2024-06-11)
DX: K92.2 Gastrointestinal hemorrhage, unspecified (principal); N18.6 End stage renal disease; T80.211A Bloodstream infection due to central venous catheter, initial encounter; N39.0 Urinary tract infection, site not specified; I12.0 Hypertensive chronic kidney disease with stage 5 chronic kidney disease or end stage renal disease; R78.81 Bacteremia; J96.11 Chronic respiratory failure with hypoxia; I48.0 Paroxysmal atrial fibrillation; D63.1 Anemia in chronic kidney disease; B02.9 Zoster without complications; M19.90 Unspecified osteoarthritis, unspecified site; Z66 Do not resuscitate; Y84.1 Kidney dialysis as the cause of abnormal reaction of the patient, or of later complication, without mention of misadventure at the time of the procedure; E78.00 Pure hypercholesterolemia, unspecified; I95.9 Hypotension, unspecified; L89.152 Pressure ulcer of sacral region, stage 2; R33.8 Other retention of urine; B96.89 Other specified bacterial agents as the cause of diseases classified elsewhere; E87.6 Hypokalemia; L30.4 Erythema intertrigo; Z79.01 Long term (current) use of anticoagulants; Z79.899 Other long term (current) drug therapy; Z86.16 Personal history of COVID-19; Z86.19 Personal history of other infectious and parasitic diseases; Z87.891 Personal history of nicotine dependence; Z99.2 Dependence on renal dialysis
CPT/HCPCS: 36556; 36558; 36589; 71045; 73700; 74176; 76937; 77001; 80048; 80051; 80053; 81003; 81015; 82533; 82607; 82728; 82746; 83540; 83550; 84466; 85014; 85018; 85025; 85027; 86803; 86850; 86900; 86901; 86920; 87040; 87045; 87046; 87070; 87077; 87084; 87086; 87147; 87149; 87186; 87205; 87324; 87340; 87427; 87449; 87798; 93005; 93306; 94640; 96374; 97110; 97163; 97167; 97530; 97535; 99152; 99153; 99285; C1750; C1752; G0257; J0699; J0714; J1447; J2185; P9016; P9047; Q5106

== ENCOUNTER 2024-07-13 18:05 | Inpatient (IN) | payer MEDICARE, SELFPAY ==
[2024-07-13] VITALS (38 sets, daily range): BP systolic 57–101; BP diastolic 27–78; BMI 29.8
[2024-07-13] MEDS: NSS 1000 IV ×2 (11:34→20:25)
[2024-07-13 12:02] LABS: Hematocrit 37.3 % (37.0-47.0); Hemoglobin 12.1 g/dL (12.0-16.0); Mean Corp Hgb Conc. 32.4 g/dL (33.0-37.0); Mean Corpuscular Hgb 29.2 pg (27.0-31.0); Mean Corpuscular Volume 90.1 fL (81.0-99.0); Mean Platelet Volume 10.7 fL (7.4-10.4); Platelet Count 255 10^3/uL (130-400); Red Blood Cell Count 4.14 10^6/uL (4.20-5.40); Red Cell Dist. Width 17.5 % (11.5-14.5); White Blood Cell Count 16.6 10^3/uL (4.8-10.8)
--- NOTE | 2024-07-13 12:25 | ED.GENMED ---
History of Present Illness
General
Chief Complaint: Blood Pressure Problem
Source: patient, ambulance crew and assisted
Exam Limitations: none
Time Seen by Provider: 07/13/24 12:05
Nursing documentation reviewed up to this point in time: agreed with
History of Present Illness
History of Present Illness:
73-year-old female with past medical history of A-fib, end-stage renal disease currently on dialysis Saturday, recent diarrhea presenting to the emergency department today with concerns of low blood pressure. This seemed to occur
while she was getting her dialysis. She claims that she feels that she may be dehydrated concerning her recent diarrhea and may be overdiuresis. Denies any chest pain shortness of breath feels generally tired but denies any specific additional
symptoms.
Review of Systems
Review of Systems
Allergies reviewed?: Yes
All Other Systems: ROS reviewed and negative except as documented in HPI and ROS
Phy Exam
Physical Exam
Physical Exam:
GENERAL: Alert , in no apparent distress
EYE: pupils equal and reactive
NECK: Supple, no significant adenopathy.
ENT: o/p clr, mmm.
CARDIAC: Regular rate and rhythm .
LUNGS: Clear breath sounds bilaterally, no acute respiratory distress, no wheezes/rales/rhonchi
ABDOMEN: Soft, without focal tenderness, no r/g, no cvat
NEUROLOGICAL: Alert and oriented, no focal neuro deficits
SKIN: Warm and dry, skin intact.
MUSCULOSKELETAL: No edema, well perfused.
PSYCH: Normal and appropriate interaction.
Course
Orders/Labs/Results
Orders:
Orders
07/13/24 11:17
EKG [Electrocardiogram (*1)] Urgent
Reason for Study: Vertigo / Dizzy
EKG- Treatment ONCE
07/13/24 11:18
Complete Blood Count/With Diff Urgent
Comprehensive Metabolic Panel Urgent
Magnesium Urgent
Comment: ADD
07/13/24 11:33
0.9% Sodium Chloride 1000 ml [Nss] 1,000 ml IV BOLUS
07/13/24 12:09
Chest X-ray Portable [CR Chest Portable - 1 View] Urgent
Comment:
Reason For Exam: hypoxic
Reason Study Needs to be Portable: Patient Unstable
07/13/24 12:13
Add On- LAB Urgent
Tests Added?: Magnesium
07/13/24 12:59
Lactic Acid Urgent
Pro-BNP [NT-proBNP] Urgent
07/13/24 15:22
Urinalysis Reflex To Culture Urgent
07/13/24 15:30
Blood Culture Q30M
MIGUEL ANGEL Source: Blood/Venous
Specimen Description:
07/13/24 15:51
NEPHROLOGY CONSULT Routine
Consulting Provider: Radha Javed
Was physician already notified: Yes
07/13/24 15:58
Blood Culture Q30M
MIGUEL ANGEL Source: Blood/Venous
Specimen Description:
Abnormal Lab Results
07/13/24
11:18
WBC 16.6 H 10^3/uL
(4.8-10.8)
RBC 4.14 L 10^6/uL
(4.20-5.40)
MCHC 32.4 L g/dL
(33.0-37.0)
RDW 17.5 H %
(11.5-14.5)
MPV 10.7 H fL
(7.4-10.4)
Abs Immat Gran (auto) 0.1 H 10^3/uL
(0-0.05)
Absolute Neuts (auto) 13.0 H 10^3/uL
(1.4-6.5)
Absolute Monos (auto) 1.2 H 10^3/uL
(0.1-0.6)
Immature Gran % 0.8 H %
(0-0.5)
Neutrophils % 78.8 H %
(42.2-75.2)
Lymphocytes % 12.9 L %
(20.5-51.1)
Sodium 131 L mmol/L
(135-145)
BUN 40 H mg/dl
(7-17)
Creatinine 2.6 H mg/dL
(0.6-1.0)
Calcium 7.8 L mg/dl
(8.4-10.2)
Alkaline Phosphatase 150 H U/L
(38-126)
Total Protein 4.3 L g/dl
(6.3-8.2)
Albumin 2.2 L g/dl
(3.5-5.0)
07/13/24 11:18
07/13/24 11:18
Vital Signs
Initial and Last Documented VS:
Initial Vital Signs
Temp Pulse Resp Pulse Ox
97.6 F 103 24 95
07/13/24 11:11 07/13/24 11:11 07/13/24 11:11 07/13/24 11:11
Last Documented Vital Signs
Temp Pulse Resp BP Pulse Ox
97.6 F 93 24 72/50 95
07/13/24 11:11 07/13/24 14:45 07/13/24 14:45 07/13/24 14:40 07/13/24 14:45
MDM/Problems Addressed
MDM/Problems Addressed:
74-year-old female presenting to the emergency department today with concerns of low blood pressure. She also has generalized weakness and fatigue throughout the day today. Has had some diarrhea over the past few days as well. On arrival blood
pressure in the low 100s over 70s but worsening to the 60s over 40s that the patient denies any severe symptoms at the time during her assessment while the blood pressure was this low she was started on fluids as she was potentially overly diuresed
and potentially dehydrated. Patient was given fluids with improvement of blood pressure to the 70s over 50s however still concerning lay low. Patient's clinical presentation still she appears very well in no distress plan to admit for further
monitoring resuscitation and further assessment.
*Critical Care Note
Total Time (30-74mins, 75-104mins- exclusive of procedures): Not Applicable
ED Attending Note
-
Portions of this chart may have been created with voice recognition software.� Occasional wrong word or��sound alike� substitutions may have occurred due to the inherent limitations of voice recognition software.
Discharge Plan
Departure
Patient Disposition: Admit
Date of Disposition: 07/13/24
Time of Disposition: 16:20
Admit to: IMU
Admit to doctor: Ellen
Presentation/result/management discussed w/ accepting MD/DO: Hospitalist
Patient with high blood pressure during this ER visit?: No
Condition: Good
Covid-19: Not Applicable
Discharge Problem:
Acute hypotension
Prescriptions:
No Action
amiodarone 200 mg Tablet
200 mg PO DAILY
miconazole nitrate 2 % Powder
1 applic TOPICAL TID
acetaminophen 500 mg Tablet
500 mg PO Q8HPRN PRN (Reason: mild pain)
magnesium hydroxide [Milk of Magnesia] 400 mg/5 mL Suspension
30 ml PO HSPRN PRN (Reason: no bm by 3rd day)
bisacodyl 10 mg Suppository
10 mg MN DAILYPRN PRN (Reason: if no result from mom)
folic acid 1 mg Tablet
1 mg PO DAILY
montelukast 10 mg Tablet
10 mg PO DAILY
gabapentin 100 mg Capsule
100 mg PO DAILY
albuterol sulfate [Ventolin HFA] 90 mcg/actuation Hfa Aerosol Inhaler
2 puff INHALATION R Q6HPRN PRN (Reason: wheezing)
brompheniramine-phenylephrine 2-5 mg/5 mL Liquid
5 ml PO Q4HPRN PRN (Reason: cough/congestion)
rosuvastatin 5 mg Tablet
5 mg PO DAILY
ferrous gluconate 324 mg (38 mg iron) Tablet
324 mg PO Q48H
melatonin 5 mg Tablet
5 mg PO HS
Dulera 200-5 mcg/actuation Hfa Aerosol Inhaler
2 puff INHALATION R BID
Eliquis 5 mg Tablet
5 mg PO BID
miconazole nitrate 2 % Aerosol Powder
1 spray TOPICAL DAILYPRN PRN (Reason: incontinence areas)
miconazole nitrate 2 % Aerosol Powder
1 spray TOPICAL BID
ondansetron HCl [Zofran] 4 mg Tablet
4 mg PO Q6HPRN PRN (Reason: nausea)
Visbiome 112.5 billion cell Capsule
2 cap PO DAILY
midodrine 5 mg tablet
5 mg PO TID
pantoprazole 40 mg tablet,delayed release (DR/EC)
40 mg PO DAILY
cyanocobalamin (vitamin B-12) 1,000 mcg capsule
1,000 mcg PO NOON
Referrals:
Devon Friedman MD [Family Provider] -
Interventions
Interventions:
*Risk Screen - Suicide Last Done: 07/13/24 11:14
*General Assessment Last Done: 07/13/24 11:14
*Neglect/Abuse Screening Last Done: 07/13/24 11:14
*ED COVID-19 Vaccine History Last Done: 07/13/24 11:14
ED- Cardiac Assessment Last Done: 07/13/24 11:16
ED- Neurological Assessment Last Done: 07/13/24 11:16
ED- Pulmonary Assessment Last Done: 07/13/24 11:16
Discharge Date and Time
Print Language: ROMANSH
[2024-07-13 12:32] LABS: ALT (SGPT) < 10 U/L (0-35); AST (SGOT) 16 U/L (14-36); Albumin 2.2 g/dl (3.5-5.0); Alkaline Phosphatase 150 U/L (38-126); Blood Urea Nitrogen 40 mg/dl (7-17); Calcium 7.8 mg/dl (8.4-10.2); Carbon Dioxide 22 mmol/L (22-30); Chloride 98 mmol/L (98-107); Estimated Creatinine Clearance 18 ml/min; Glucose 85 mg/dl (70-99); Magnesium 1.6 mg/dl (1.6-2.3); Potassium 3.8 mmol/L (3.5-5.1); Sodium 131 mmol/L (135-145); Total Bilirubin 0.6 mg/dl (0.2-1.3); Total Protein 4.3 g/dl (6.3-8.2); eGFR 19.02
[2024-07-13 13:04] LABS: % Basophils 0.5 % (0-2); % Eosinophils 0.1 % (0-6); % Immature Granulocytes 0.8 % (0-0.5); % Lymphocytes 12.9 % (20.5-51.1); % Monocytes 6.9 % (1.7-9.3); % Neutrophils 78.8 % (42.2-75.2); Absolute Basophils 0.1 10^3/uL (0-0.2); Absolute Immature Granulocytes 0.1 10^3/uL (0-0.05); Absolute Lymphocytes 2.1 10^3/uL (1.2-3.4); Absolute Monocytes 1.2 10^3/uL (0.1-0.6); Nucleated Red Blood Cells % 0 %
[2024-07-13 13:29] LABS: Lactic Acid 1.2 mmol/L (0.7-2.0)
[2024-07-13 13:39] LABS: NT-proBNP 590 pg/ml
--- NOTE | 2024-07-13 17:47 | W.CON.NEPH ---
Consultation
-
Date/Time Consultation Requested: 07/13/24 1551
Date/Time Consultation Performed: 07/13/24 1645
Requesting Provider: Roselyn Krueger
Performing Provider: Radha Lieberman
Reason for Consultation: ESRD
Medical History
-
Chief Complaint: Hypotension
History of Present Illness:
Patient is a 73 year old female with ESRD on HD, Afib on Amiodarone, AC with ELiquis, chr hypotension on midodrine sent to ER for hypotension from [facility]. She first was admitted at [facility] (04/19- ~05/19) for septic shock due to a
groin abscess complicated by C. difficile COVID pneumonia in April 2024 and was started on HD for RENATO at that time and d/c [facility]. She was admitted to from 05/26 to 06/22 for CRE Enterobacter bacteremia and felt source was HD catheter
which subsequently exchanged and completed antibiotic guided by ID prior d/c, also her midodrine dose reduced since BPs have improved. SInce d/c reports doing well but about 1 week ago started to have mild nausea and decreased po intake. Had
diarrhea for last few days. Today she noted to be hypotensive during HD and only had 1.5hr of HD and sent to ER. She reports BPs were fine on low dose midodrine all along until today. She denies any fever, chills. No cough or cp or sob. no abd pain.
In ER her SBP were in 50s, received 1lit of NS and upto 70s. Has no dizziness or syncope.
Past Medical History
ESRD?-[facility]
a-fib
herpes zoster
hyperlipidemia
hypoxic respiratory failure
Hx c-diff colitis
osteoarthritis
Left hip replacement
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
Social History
Tobacco: Former Smoker
Alcohol: Occasional
Living: Halfway
Family History
HT, CAD, Colon CA
Allergies / Home Medications
Allergy/AdvReac Type Severity Reaction Status Date / Time
cephalexin Allergy tolerates Verified 06/03/24 11:13
cefazolin
codeine Allergy Nausea / Verified 05/26/24 15:44
Vomiting
�Medication �Instructions �Recorded �Confirmed �Type
acetaminophen 500 mg tablet 500 mg PO Q8HPRN PRN mild pain 05/26/24 07/13/24 History
albuterol sulfate 90 mcg/actuation 2 puff inhalation R Q6HPRN PRN 05/26/24 07/13/24 History
aerosol inhaler (Ventolin HFA) wheezing
amiodarone 200 mg tablet 200 mg PO DAILY Heart 05/26/24 07/13/24 History
Disease/Condition
apixaban 5 mg tablet (Eliquis) 5 mg PO BID Blood Clot 05/26/24 07/13/24 History
Prevention/Tx
bisacodyl 10 mg rectal suppository 10 mg OH DAILYPRN PRN if no result 05/26/24 07/13/24 History
from mom
brompheniramine-phenylephrine 2 5 ml PO Q4HPRN PRN cough/congestion 05/26/24 07/13/24 History
mg-5 mg/5 mL oral liquid
ferrous gluconate 324 mg (38 mg 324 mg PO Q48H Supplement 05/26/24 07/13/24 History
iron) tablet
folic acid 1 mg tablet 1 mg PO DAILY Supplement 05/26/24 07/13/24 History
gabapentin 100 mg capsule 100 mg PO DAILY Pain 05/26/24 07/13/24 History
magnesium hydroxide 400 mg/5 mL 30 ml PO HSPRN PRN no bm by 3rd day 05/26/24 07/13/24 History
oral suspension (Milk of Magnesia)
melatonin 5 mg tablet 5 mg PO HS Sleep 05/26/24 07/13/24 History
miconazole nitrate 2 % topical 1 applic topical TID under b/l 05/26/24 07/13/24 History
powder breast,groin,ab
mometasone-formoterol HFA 200 2 puff inhalation R BID 05/26/24 07/13/24 History
mcg-5 mcg/actuation aerosol Lung/Breathing Issues
inhaler (Dulera)
montelukast 10 mg tablet 10 mg PO DAILY Allergies 05/26/24 07/13/24 History
rosuvastatin 5 mg tablet 5 mg PO DAILY High Cholesterol 05/26/24 07/13/24 History
Lactobac no.2-Bifidobac no.1-S. 2 cap PO DAILY probiotic 07/13/24 07/13/24 History
thermo 112.5 billion cell capsule
(Visbiome)
cyanocobalamin (vitamin B-12) 1,000 mcg PO NOON Supplement 07/13/24 07/13/24 History
1,000 mcg capsule
miconazole nitrate 2 % topical 1 spray topical BID groin 07/13/24 07/13/24 History
spray powder
miconazole nitrate 2 % topical 1 spray topical DAILYPRN PRN 07/13/24 07/13/24 History
spray powder incontinence areas
midodrine 5 mg tablet 5 mg PO TID hypotension 07/13/24 07/13/24 History
ondansetron HCl 4 mg tablet 4 mg PO Q6HPRN PRN nausea 07/13/24 07/13/24 History
pantoprazole 40 mg tablet,delayed 40 mg PO DAILY Gastrointestinal 07/13/24 07/13/24 History
release issue
Review of Systems
-
all complete 12 point ROS have been inquired and found negative other than stated in HPI
Physical Exam
Vital Signs
Vital Signs
Temp Pulse Resp BP Pulse Ox
97.6 F 91 22 72/47 96
07/13/24 11:11 07/13/24 16:40 07/13/24 16:40 07/13/24 16:40 07/13/24 16:40
Lab Results
WBC 16.6 10^3/uL (4.8-10.8) H 07/13/24 11:18
RBC 4.14 10^6/uL (4.20-5.40) L 07/13/24 11:18
Hgb 12.1 g/dL (12.0-16.0) 07/13/24 11:18
Hct 37.3 % (37.0-47.0) 07/13/24 11:18
Plt Count 255 10^3/uL (130-400) 07/13/24 11:18
Sodium 131 mmol/L (135-145) L 07/13/24 11:18
Potassium 3.8 mmol/L (3.5-5.1) 07/13/24 11:18
Chloride 98 mmol/L (98-107) 07/13/24 11:18
Carbon Dioxide 22 mmol/L (22-30) 07/13/24 11:18
BUN 40 mg/dl (7-17) H 07/13/24 11:18
Creatinine 2.6 mg/dL (0.6-1.0) H 07/13/24 11:18
eGFR 19.02 07/13/24 11:18
Glucose 85 mg/dl (70-99) 07/13/24 11:18
Calcium 7.8 mg/dl (8.4-10.2) L 07/13/24 11:18
Osg-O-Fiahvafujze Pept 590 pg/ml 07/13/24 12:59
Albumin 2.2 g/dl (3.5-5.0) L 07/13/24 11:18
CXR:
IMPRESSION:
No acute cardiopulmonary abnormality.
Appropriate positioning of the right internal jugular approach central venous catheter.
Physical Exam
General: Awake, Alert, Oriented, AOx3 and No Distress
HEENT: EOMI, Anicteric, Facial Symmetry and No JVD
Respiratory: Clear, Normal Excursion and Nonlabored Respirations
Cardiac: S1/S2 and Regular Rate/Rhythm
Breast: Deferred by me
Abdomen: Soft, Nontender and Nondistended
Musculoskeletal: No Cyanosis and No Edema
Skin: No Rash
Neuro: Nonfocal/Grossly Intact
Psych: Mood/afflect pleasant, Insight/judgement good and Appropriate
Vascular Access: CVC
Data Reviewed
-
Radiology: Report Reviewed by me, Discussed with Patient and Discussed with Family
Labs: Labs Reviewed by me, Discussed with Physician, Discussed with Patient and Discussed with Family
Assessment/Plan
-
Assessment:
POssible sepsis
Hypotension
Recent Enterobacter bacteremia/GNR - Panresistant-completed abx on 06/19
Hypotension on midodrine
ESRD on HD-MWF through [facility]
Anemia
h/o GIB
Chronic hypoxic respiratory insufficiency
h/o urinary retention
parox a-fib
hyperlipidemia
Hx c-diff colitis
osteoarthritis
Chronic wounds
Hypoantremia
Plan:
A/w hypotension, noted leucocytosis
recent Enterobactor MRDO bacteremia
check bld cx
ok for IVF and likely start pressors to keep MAP>65
increase midodrine to 10 TID
laboratory data noted -no emergent need of HD , only had 1.5hr HD today
next HD plan Saturday
abx per primary
d/w pt and daughter at bedside
d/w primary
--- NOTE | 2024-07-13 17:47 | HPS.HSE ---
Addendum entered and electronically signed by Roselyn Otto MD 07/13/24 18:35:
I personally performed a history and physical exam of the patient and discussed management with the resident. I reviewed the resident's note and agree with the documented findings and plan of care HPI/CC.
A/P:
# Sepsis POA, and with watery foul smelling diarrhea, suspect C diff infection (2nd episode)
CXR negative
Check for C. Diff, norovirus, stool culture
Follow blood Cx x2
Would start fidaxomicin and consult ID if C diff positive (for second episode)
# Hypotension likely volume depleted 2/2 diarrhea and dialysis
s/p 1 L NSS, continue gentle IVF NSS 60 ml/hr
Continue midodrine tid
# Paroxysmal Afib
Continue Eliquis
Cont amiodarone
# ESRD on HD
Consult nephrology for HD needs
# Asthma
Continue home meds
# Anemia, chronic
Stable
# Hypomagnesemia, hypokalemia likely 2/2 diarrhea
Replete as needed
Code status: DNR
DVT prophylaxis: Eliquis
Original Note:
Family Physician
-
Family Physician: Devon Friedman
Chief Complaint
-
Hypotension
History of Present Illness
Patient is a 73 y/o female from [facility] with pmhx of ESRD on HD (MWF) and paroxysmal Afib presenting to the ED with low blood pressures detected while on dialysis earlier today. Patient reports she was asymptomatic for the duration of
dialysis but dialysis was terminated after 1.5 hrs for her low BPs. Patient has a h/o HTN but has been dealing with low BPs since April last year after she was hospitalized at [facility] for septic shock (on chart review, patient had groin abscess
complicated by C. Diff colitis, pneumonia, RENATO, and Afib). Takes midodrin q8hrs for her low BPs. Patient notes she had 2 episodes of loose watery, foul smelling diarrhea yesterday and one episode today in the hospital. She denies abdominal pain,
nausea, vomiting, chest pain, urinary symptoms, fever, dizziness, shortness of breath. Patient denies sick contacts.
Patient was recently hospitalized at [place] for bacteremia with CRE enterobacter garcia resistant to antibiotics (secondary to infected hemodialysis port) and received treatment with Cefiderocol. Additionally, she was treated with fluconazole for
intertrigo, completed a course of valacyclovir for shingles, and oral vancomycin regimen for C. difficile colonization.
Medical History
Past Medical History
Past Medical History: Reports Arrhythmia, Asthma, HTN, Hypercholesterolemia, Renal Failure and Other (Shingles, C. Diff colitis)
Past Surgical History: Reports Orthopedic (Left hip replacement) and Other (Cataract surgery)
Social History
Tobacco: Former Smoker
Alcohol: Occasional
Living: Alf
Employment: Retired
Family History
Family History: Not pertinent
Allergies / Home Medications
Allergies reflects when Allergies were last updated in [facility].
Home Medications with original date entered in [employer]
Allergy/Medication List:
Allergies
Allergy/AdvReac Type Severity Reaction Status Date / Time
cephalexin Allergy tolerates Verified 06/03/24 11:13
cefazolin
codeine Allergy Nausea / Verified 05/26/24 15:44
Vomiting
Home Medications
acetaminophen 500 mg tablet 500 mg PO Q8HPRN PRN mild pain 05/26/24
albuterol sulfate 90 mcg/actuation aerosol inhaler (Ventolin HFA) 2 puff inhalation R Q6HPRN PRN wheezing 05/26/24
amiodarone 200 mg tablet 200 mg PO DAILY Heart Disease/Condition 05/26/24
apixaban 5 mg tablet (Eliquis) 5 mg PO BID Blood Clot Prevention/Tx 05/26/24
bisacodyl 10 mg rectal suppository 10 mg CO DAILYPRN PRN if no result from mom 05/26/24
brompheniramine-phenylephrine 2 mg-5 mg/5 mL oral liquid 5 ml PO Q4HPRN PRN cough/congestion 05/26/24
ferrous gluconate 324 mg (38 mg iron) tablet 324 mg PO Q48H Supplement 05/26/24
folic acid 1 mg tablet 1 mg PO DAILY Supplement 05/26/24
gabapentin 100 mg capsule 100 mg PO DAILY Pain 05/26/24
magnesium hydroxide 400 mg/5 mL oral suspension (Milk of Magnesia) 30 ml PO HSPRN PRN no bm by 3rd day 05/26/24
melatonin 5 mg tablet 5 mg PO HS Sleep 05/26/24
miconazole nitrate 2 % topical powder 1 applic topical TID under b/l breast,groin,ab 05/26/24
mometasone-formoterol HFA 200 mcg-5 mcg/actuation aerosol inhaler (Dulera) 2 puff inhalation R BID Lung/Breathing Issues 05/26/24
montelukast 10 mg tablet 10 mg PO DAILY Allergies 05/26/24
rosuvastatin 5 mg tablet 5 mg PO DAILY High Cholesterol 05/26/24
Lactobac no.2-Bifidobac no.1-S. thermo 112.5 billion cell capsule (Visbiome) 2 cap PO DAILY probiotic 07/13/24
cyanocobalamin (vitamin B-12) 1,000 mcg capsule 1,000 mcg PO NOON Supplement 07/13/24
miconazole nitrate 2 % topical spray powder 1 spray topical BID groin 07/13/24
miconazole nitrate 2 % topical spray powder 1 spray topical DAILYPRN PRN incontinence areas 07/13/24
midodrine 5 mg tablet 5 mg PO TID hypotension 07/13/24
ondansetron HCl 4 mg tablet 4 mg PO Q6HPRN PRN nausea 07/13/24
pantoprazole 40 mg tablet,delayed release 40 mg PO DAILY Gastrointestinal issue 07/13/24
Review of Systems
-
History Source: Patient and Family
Constitutional: Reports Fatigue
EENT: Reports No Symptoms
Respiratory: Reports No Symptoms
Cardiac: Reports No Symptoms
Abdomen/GI: Reports Diarrhea
: Reports No Symptoms
Musculoskeletal: Reports No Symptoms
Skin: Reports No Symptoms
Neurological: Reports No Symptoms
Endocrine: Reports No Symptoms
Hematologic/Lymphatic: Reports No Symptoms
Psych: Reports No Symptoms
Physical Exam
Vital Signs
Vital Signs
Temp Pulse Resp BP Pulse Ox
97.6 F 91 22 72/47 96
07/13/24 11:11 07/13/24 16:40 07/13/24 16:40 07/13/24 16:40 07/13/24 16:40
Physical Exam
General: Well Developed, Well Nourished, No Apparent Distress and Comfortable
HEENT: NormoCephalic
Respiratory: Clear
Cardiac: S1/S2 and Regular Rhythm; No Tachycardia
GI: Soft, Non Tender, Non Distended and Normal Bowel Sounds
Genito-urinary: Clear Urine, No costovertebral tender and Griffiths
Musculoskeletal: No Clubbing, No Cyanosis and No Edema
Skin: Warm
Neuro: Awake, Alert and Oriented
Hematologic/Lymphatic: No Lymphadenopathy
Psych: Calm
Laboratory Results
-
07/13/24 11:18
07/13/24 11:18
Laboratory Results
Lactic Acid 1.2 mmol/L (0.7-2.0) 07/13/24 12:59
Total Bilirubin 0.6 mg/dl (0.2-1.3) 07/13/24 11:18
AST 16 U/L (14-36) 07/13/24 11:18
ALT < 10 U/L (0-35) 07/13/24 11:18
Alkaline Phosphatase 150 U/L (38-126) H 07/13/24 11:18
Impression/Plan
-
73 y/o female with h/o ESRD on HD and recent hospitalizations presenting with:
# Sepsis
- Leukocytosis, tachycardia, increased RR --> meets SIRS criteria
- Likely 2/2 to diarrhea
- CXR negative
- Check for C. Diff, norovirus, stool culture
- Check CRP
# Hypotension
- Likely volume depleted 2/2 diarrhea and dialysis
- Continue IVF 60 ml/hr given patient has chronic renal failure
- Hold amiodarone
- Continue midodrine tid
# Diarrhea, acute
- Leukocytosis
- Check for C. Diff, norovirus, stool culture
- Consider ID consult if C. Diff positive
- Will hold antibiotics for now
# Paroxismal Afib
- Continue Eliquis
- Currently in NSR
- Held amiodarone for low BPs
# ESRD on HD
- Consult nephrology for HD needs
# Asthma
- Continue home meds
# Anemia, chronic
- Stable
# Hypomagnesemia, hypokalemia
- Acute, likely 2/2 diarrhea
- Replete as needed
Code status: DNR
DVT prophylaxis: Eliquis
[2024-07-13] MEDS: ProAmatine 10 MG PO (20:25)
[2024-07-13] MEDS: KCL 20 MEQ PO (20:25)
[2024-07-13] MEDS: MAGNESIUM SULFATE 100 IV (20:26)
[2024-07-14] VITALS (70 sets, daily range): BP systolic 74–115; BP diastolic 49–84; BMI 29.8
[2024-07-14] MEDS: SYMBICORT 160/4.5 MCG INHALER INH (00:35)
[2024-07-14] MEDS: LEVOPHED 250 IV ×2 (00:42→11:10)
[2024-07-14] MEDS: MELATONIN 5 MG PO ×2 (00:49→22:18)
[2024-07-14] MEDS: ELIQUIS 5 MG PO ×2 (00:49→08:16)
[2024-07-14 07:15] LABS: Hematocrit 38.1 % (37.0-47.0); Mean Corp Hgb Conc. 31.5 g/dL (33.0-37.0); Mean Corpuscular Hgb 28.6 pg (27.0-31.0); Mean Corpuscular Volume 90.9 fL (81.0-99.0); Mean Platelet Volume 11.1 fL (7.4-10.4); Platelet Count 300 10^3/uL (130-400); Red Blood Cell Count 4.19 10^6/uL (4.20-5.40); Red Cell Dist. Width 17.6 % (11.5-14.5); White Blood Cell Count 23.5 10^3/uL (4.8-10.8)
[2024-07-14] MEDS: SYMBICORT 160/4.5 MCG INHALER 2 PUFF INH ×2 (07:24→22:31)
[2024-07-14 07:29] LABS: Blood Urea Nitrogen 45 mg/dl (7-17); Calcium 7.9 mg/dl (8.4-10.2); Carbon Dioxide 14 mmol/L (22-30); Chloride 101 mmol/L (98-107); Glucose 91 mg/dl (70-99); Magnesium 3.3 mg/dl (1.6-2.3); Potassium 4.3 mmol/L (3.5-5.1); Sodium 130 mmol/L (135-145)
[2024-07-14 07:45] LABS: Estimated Creatinine Clearance 15 ml/min
[2024-07-14] MEDS: CRESTOR 5 MG PO (08:14)
[2024-07-14] MEDS: FOLVITE 1 MG PO (08:15)
[2024-07-14] MEDS: PROTONIX 40 MG PO (08:15)
[2024-07-14] MEDS: SINGULAIR 10 MG PO (08:15)
[2024-07-14] MEDS: FEOSOL 325 MG PO (08:18)
[2024-07-14] MEDS: PACERONE 200 MG PO (08:18)
[2024-07-14] MEDS: ProAmatine 10 MG PO ×3 (08:18→15:26)
[2024-07-14] MEDS: VISBIOME 2 CAP PO (08:19)
[2024-07-14] MEDS: NEURONTIN 100 MG PO (08:19)
--- NOTE | 2024-07-14 08:19 | W.PN.HOSP.TC ---
Addendum entered and electronically signed by Patricia Hernandez MD 07/14/24 18:04:
I saw and evaluated the patient independently. I reviewed the resident�s note and agree with findings and plan as documented by Dr. Dominguez.
GENERAL: well developed, well nourished, female in no apparent distress
HEENT: NC/AT--tunnelled HD cath right SC
HEART: regular rate and rhythm, +S1, +S2
LUNGS : clear to auscultation bilaterally
ABDOM: soft, nontender, nondistended, + bowel sounds
EXT: no cyanosis, clubbing, or edema
NEUROLOGIC: grossly intact
Septic shock POA with metabolic acidosis and pressor dependent hypotension-- with watery foul smelling diarrhea likely due to C. diff positive--was started on Dificid but apprec ID--changed to oral vanco/flagyl--blood culture neg--WBC increasing
with increasing pressor requirements--will transfer to ICU, consult javascript web developer--consult CRS--cont IVF with bicarb, changed from NSS, cont midodrine
Paroxysmal Afib- Continue Eliquis, may need to hold if surgery a possibility- Cont amiodarone
ESRD on HD- Nephrology following for HD needs- next HD plan Saturday
Asthma- Continue home meds
Anemia, chronic- Stable
Hypomagnesemia, hypokalemia likely due to diarrhea--replete as needed
Code status: DNR
DVT proph: Eliquis
Total Critical Care Time 30 minutes. I was immediately available to the patient and staff. I personally examined, reviewed labs, diagnostic images/reports, interpretations, treatment plans, discussed patient care with other providers and family
or caregivers (if patient is unable to make decisions), entered orders as appropriate and documented the medical record.
Addendum entered and electronically signed by Le Nuñez MD, Resident 07/14/24 17:43:
Update:
Will transfer patient to ICU. Abd xray showed mild dilation of the transverse colon with wall thickening. Currently on levophed and midodrine, systolic BPs ranging from ~85-100.
Consulted colorectal surgery. Will recheck lactic acid and repeat labs. Restarted gentle IVFs. NPO. Shaheed held
Original Note:
Today's Communication/Plan
-
Antibiotic treatment for C. diff (second epsiode)
BCx pending
Titrate Levophed as able
Continue midodrine
HD tomorrow
Add bicarb to IVF
Assessment / Plan
Assessment / Plan
73 y/o female with h/o ESRD on HD and recent hospitalizations presenting with:
# Septic shock POA, and with watery foul smelling diarrhea
- CXR negative
- Leukocytosis, white count 23.5 today
- C. Diff positive, second episode
- Norovirus neg, stool culture pending
- Blood Cx x2 pending
- Started fidaxomicin
- ID consult appreciated for C diff management
# Hypotension likely volume depleted 2/2 diarrhea and dialysis
- on Levophed, titrate to keep MAP>65
- Now has met acidosis, add bicarb to IVF at 60 ml/hr
- Continue midodrine 10 tid
# Paroxysmal Afib
- Continue Eliquis
- Cont amiodarone
# ESRD on HD
- Nephrology following for HD needs
- next HD plan Saturday
# Asthma
- Continue home meds
# Anemia, chronic
- Stable
# Hypomagnesemia, hypokalemia likely 2/2 diarrhea
- Now resolved
- Repleted
Code status: DNR
DVT prophylaxis: Eliquis
Anticipated Discharge: > 48 hours
Subjective/Interval History
-
Date of Service: July 14, 2024
Objective Data
-
Labs:
Laboratory Results
07/14/24
06:18
WBC 23.5 H
Hgb 12.0
Hct 38.1
Plt Count 300
Sodium 130 L
Potassium 4.3
Chloride 101
Carbon Dioxide 14 L*
BUN 45 H
Creatinine 3.1 H
Glucose 91
Calcium 7.9 L
Vital Signs:
Vital Signs
Temp Pulse Resp BP Pulse Ox
97.6 F 96 16 104/61 94
07/13/24 11:11 07/14/24 07:31 07/14/24 07:31 07/14/24 04:20 07/14/24 07:31
I&O
07/13/24 07/14/24 07/15/24
06:59 06:59 06:59
Intake Total 567.5 / 567.5
Output Total 100 / 100
Balance 467.5 / 467.5
Review of Systems
-
History Source: Patient and Family
Constitutional: Reports No Symptoms
EENT: Reports No Symptoms Reported
Respiratory: Reports No Symptoms
Cardiac: Reports No Symptoms
Abdomen/GI: Reports Nausea and Diarrhea (last episode last night)
Breast: Reports No Symptoms
Genitourinary: Reports No Symptoms
Musculoskeletal: Reports No Symptoms
Skin: Reports No Symptoms
Neuro: Reports No Symptoms
Endocrine: Reports No Symptoms
Hematologic / Lymphatic: Reports No Symptoms
Allergy / Immunology: Reports No Symptoms
Physical Exam
-
General: Well Developed and Well Nourished
HEENT: Normocephalic
Respiratory: Clear to Auscultation
Cardiac: Regular Rhythm and S1/S2
GI: Soft, Nontender, Nondistended and Normal Bowel Sounds
Genito-urinary: No Costovertebral Tender
Musculoskeletal: No Clubbing, No Cyanosis and No Edema
Skin: Warm
Neuro: Awake, Alert and Oriented
Hematologic / Lymphatic: No Lymphadenopathy
Psych: Calm
[2024-07-14] MEDS: DESENEX/MITRAZOL/ZEASORB 1 APPLIC TOPICAL ×3 (08:20→22:17)
[2024-07-14] MEDS: ZOFRAN 4 MG PO (09:35)
[2024-07-14 10:56] LABS: % Basophils 0.8 % (0-2); % Eosinophils 0.1 % (0-6); % Immature Granulocytes 1.1 % (0-0.5); % Lymphocytes 8.2 % (20.5-51.1); % Neutrophils 83.8 % (42.2-75.2); Absolute Basophils 0.2 10^3/uL (0-0.2); Absolute Immature Granulocytes 0.3 10^3/uL (0-0.05); Absolute Lymphocytes 1.9 10^3/uL (1.2-3.4); Absolute Monocytes 1.4 10^3/uL (0.1-0.6); Absolute Neutrophils 19.7 10^3/uL (1.4-6.5); Nucleated Red Blood Cells % 0 %
[2024-07-14] MEDS: DIFICID 200 MG PO (11:05)
[2024-07-14] MEDS: VITAMIN B-12 1000 MCG PO (11:06)
--- NOTE | 2024-07-14 11:25 | W.PN.NEPH.PH ---
Today's Communication / Plan
-
po bicarb for met acidosis
HD tomorrow
Assessment/Plan
-
Assessment:
POssible sepsis
Hypotension
C diff diarrhea
Recent Enterobacter bacteremia/GNR - Panresistant-completed abx on 06/19
Hypotension on midodrine
ESRD on HD-MWF through [facility]
Anemia
h/o GIB
Chronic hypoxic respiratory insufficiency
h/o urinary retention
parox a-fib
hyperlipidemia
Hx c-diff colitis
osteoarthritis
Chronic wounds
Hypoantremia
Plan:
A/w hypotension, C diff +ve
recent Enterobactor MRDO bacteremia, await bld cx
If po intake is adequate likely d/c IVF
titrate pressors to keep MAP>65
cont midodrine to 10 TID
worsening met acidosis likely from diarrhea-start po bicarb
next HD plan Saturday
abx per primary
d/w pt and daughter at bedside
d/w nursing
-
-
Date of Service: July 14, 2024
CC / HPI / ROS
-
Chief Complaint:
ESRD
History of Present Illness:
met acidosis is worse at 14
k normal, sodium low 130
no fever, WBC up at 23k
Review of Systems:
no cp or sob
feels well, no diarrhea since last night
Labs
-
Labs:
WBC 23.5 10^3/uL (4.8-10.8) H 07/14/24 06:18
RBC 4.19 10^6/uL (4.20-5.40) L 07/14/24 06:18
Hgb 12.0 g/dL (12.0-16.0) 07/14/24 06:18
Hct 38.1 % (37.0-47.0) 07/14/24 06:18
Plt Count 300 10^3/uL (130-400) 07/14/24 06:18
Sodium 130 mmol/L (135-145) L 07/14/24 06:18
Potassium 4.3 mmol/L (3.5-5.1) 07/14/24 06:18
Chloride 101 mmol/L (98-107) 07/14/24 06:18
Carbon Dioxide 14 mmol/L (22-30) L* 07/14/24 06:18
BUN 45 mg/dl (7-17) H 07/14/24 06:18
Creatinine 3.1 mg/dL (0.6-1.0) H 07/14/24 06:18
eGFR 15.40 07/14/24 06:18
Glucose 91 mg/dl (70-99) 07/14/24 06:18
Calcium 7.9 mg/dl (8.4-10.2) L 07/14/24 06:18
Nly-W-Krjrcazrysr Pept 590 pg/ml 07/13/24 12:59
Albumin 2.2 g/dl (3.5-5.0) L 07/13/24 11:18
Physical Exam
-
Vital Signs:
Vital Signs
Temp Pulse Resp BP Pulse Ox
97.8 F 94 21 89/58 95
07/14/24 09:22 07/14/24 09:20 07/14/24 09:20 07/14/24 11:06 07/14/24 09:20
Cardiovascular:: Regular rate and rhythm
Respiratory:: Bilateral: CTA
Lung Excursion:: Normal
Abdomen:: Nontender and Soft
Extremity Edema:: None: Bilateral:
Griffiths Catheter: No
--- NOTE | 2024-07-14 12:10 | CON.ID ---
Addendum entered and electronically signed by Harmony Glass MD 07/14/24 17:05:
AXR without evidence of megacolon, would treat medically at this time and reassess in the AM
Addendum entered and electronically signed by Harmony Glass MD 07/14/24 15:55:
awaiting AXR, reordered as urgent and notified rn of request via tiger text
Original Note:
Consultation
-
Date/Time Consultation Requested: 07/14/24 12:03
Date/Time Consultation Performed: 07/14/24 12:11
Requesting Provider: Dr Dominguez
Performing Provider: Dr Glass
Reason for Consultation: C difficile, h/o MDRO infection
Chief Complaint / Past History
Chief Complaint
hypotension
History of Present Illness
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 Note that she
completed treatment for the CRE Enterobacter here 1/3 with aztreonam/avibactam and did have secondary prophylaxis for C difficile with oral vancomycin for 5 further days beyond the broad spectrum therapy. She also had severe intertrigo treated with
once weekly fluconazole 150 mg po x 4 weeks. Course was also notable for slowly resolving Shingles.
Since arrival this visit she has been afebrile, bp mildly hypotensive, wbc initially 16 toay 23.5, hgb 12 improved from earlier this month at 9, plt 300, L shift was noted, na 130, co2 14, cr 3.1, lactic acid 1.2, t bili 1=0.6, ast 16, alt <10, crp
200, CXR: no acute CP abnormality HD cath in place, no abdominal imaging done yet, C diff ag/toxin positive, single set of blood cultures done thus far, currently on fidaxomicin 200 mg ID is consulted for assistance with management.
Past History
Additional Past Medical History:
Arrhythmia, Asthma, HTN, Hypercholesterolemia, Renal Failure and Other (Shingles, C. Diff colitis)
Additional Past Surgical History:
(Left hip replacement) and Other (Cataract surgery)
Allergy History:
cephalexin Allergy (Verified 06/03/24 11:13)
tolerates cefazolin
codeine Allergy (Verified 05/26/24 15:44)
Nausea / Vomiting
Medications Reviewed: Yes
Social History
Tobacco: Former Smoker
Alcohol: Occasional
Drug: None
Family History
Family History: Not Pertinent
Review of Systems
Review of Systems
General: Negative Fever or Chills
All systems: All other systems were reviewed and were negative
Vital Signs
Temp Pulse Resp BP Pulse Ox
97.8 F 94 21 89/58 95
07/14/24 09:22 07/14/24 09:20 07/14/24 09:20 07/14/24 11:06 07/14/24 09:20
Physical Exam
Physical Exam
Constitutional: Chronically Ill, Non-toxic and Obese
Cardiovascular: Regular Rate and S1/S2; Negative Murmur or Rub
Pulmonary: Clear and Symmetric; Negative Wheezes, Rales or Rhonchi
Gastrointestinal: Soft, Tender (mildly tender), Distended and Normal Bowel Sounds
Skin: Warm and Dry; Negative Rash or Jaundice
Wound: Other (L groin I&D site - fully healed with exception of one pin pick site that is oozing a bit of blood, no tunneling; shingles wounds under L breast fully healed)
Neurological: Awake, Alert and Oriented
Lines: HD Cath (no tenderness or erythema or drainage)
Lab / Diagnostic Study Results
07/14/24 06:18
07/14/24 06:18
Abs Immat Gran (auto) 0.3 10^3/uL (0-0.05) H 07/14/24 06:18
Absolute Neuts (auto) 19.7 10^3/uL (1.4-6.5) H 07/14/24 06:18
Absolute Lymphs (auto) 1.9 10^3/uL (1.2-3.4) 07/14/24 06:18
Absolute Monos (auto) 1.4 10^3/uL (0.1-0.6) H 07/14/24 06:18
Absolute Basos (auto) 0.2 10^3/uL (0-0.2) 07/14/24 06:18
Immature Gran % 1.1 % (0-0.5) H 07/14/24 06:18
Neutrophils % 83.8 % (42.2-75.2) H 07/14/24 06:18
Lymphocytes % 8.2 % (20.5-51.1) L 07/14/24 06:18
Monocytes % 6.0 % (1.7-9.3) 07/14/24 06:18
Eosinophils % 0.1 % (0-6) 07/14/24 06:18
Basophils % 0.8 % (0-2) 07/14/24 06:18
Lactic Acid 1.2 mmol/L (0.7-2.0) 07/13/24 12:59
C-Reactive Protein 200.30 mg/L (0.0-10.00) H 07/13/24 11:18
Microbiology Results
Micro:
07/14/24 02:10 C. difficile GDH Antigen & Toxins - Final
Feces/Stool Toxigenic C.difficile Positive
- Final
Negative for Norovirus GI and GII.
07/14/24 06:18 MRSA Screen - Pending
Nose
07/14/24 02:10 Salmonella/Shigella Culture - Pending
Feces/Stool Campylobacter Culture - Pending
Shiga Toxin Test - Pending
07/13/24 15:58 Blood Culture - Pending
Blood/Venous
Assessment / Plan
Fulminant C difficile
Septic Shock
ESRD on HD via HD catheter
- second episode
- recently completed two week course of broad spectrum therapy
- note increasing WBC count to 24
- blood cultures x2
- switch to oral vancomycin 500 mg PO QID and IV metronidazole 500 mg IV Q8 hours
- AXR to assess for megacolon - if identified or patient with progressive shock, would advise colorectal surgery consultation for possible colectomy
- when acute illness improving agree with eventual switch to fidaxomicin in principle, however, would consider her ultimate disposition as well in making management decisions. She will plans to return to [place] for HD, and most SNFs are
unwilling to accept the cost of fidaxomicin. Switching at discharge to the broader spectrum vancomycin negates the potential benefit of using fidaxomicin while inpatient. Will ask leather case finisher to explore now whether her previous facility will
cover fidaxomicin and also check the cost with her outpatient pharmacy. If costs are prohibitive for fidaxomicin then I would change to oral vancomycin which is considered an acceptable substitution.
-With either drug, fidaxomicin or oral vancomycin I will also request oral fecal transplant to be completed outpatient. I provided the necessary paperwork to daughter to apply for prescription assistance for oral fecal transplant and after delivery
she will need to bring the medication in from her home to the SNF to be administered. Note efficacy at preventing relapse with oral fidaxomicin about 70%, oral fecal transplant durable success listed at 95%.
- as patient is on HD will need a script on dc for 250 mg of polyethylene glycol once as laxative after completion of fidaxomicin/oral vanc prior to the fecal transplant.
- expect elevated inflammatory markers (ESR and CRP) in HD, trend is not clinically useful as will be impacted by HD
Recent Shingles - fully healed
L groin I&D site - fully healed with exception of one pin pick site that is oozing a bit of blood, no tunneling
Intertrigo
Recent colonization with CRE Enterobacter
Resolved HD catheter infection with CRE enterobacter
- follow up blood cultures this visit, previously cleared
Patient is critically ill on pressors, follow pressor requirements, additional imaging, cbc and physical exam.
[2024-07-14] MEDS: SODIUM BICARBONATE 1150 MEQ IV (12:42)
--- NOTE | 2024-07-14 15:16 | CM ---
Addendum entered by Adrianne Lindquist 07/14/24 15:43:
Per admissions at [facility] they are aware of cost of Fidaxomicin 200 mg PO BID and are able to cover costs at retirement.
Original Note:
employee development manager reviewed patient's chart and spoke with patient and daughter, Tania at bedside, patient has been at [facility] for several months for rehab prior to that patient was at a hospital in [place]. Per daughter patient has Medicare
Prime and [employer] prescription plan. Patient is Ruchi lift to w/c at retirement. Patient with ESRD and is on HD MWF. employee development manager was consulted to check on cost of fidaxomicin and for 16 pills total cost is $4,251. employee development manager reached out to
admissions at [facility] to see if there are any options to assist with cost.
Patient has [employer] RX Plan
PCP: Dr. Devon Friedman
Pharmacy: [facility]
Plan; Patient to return to [facility] when stable.
[facility]
Report [phone]
[2024-07-14] MEDS: FLAGYL 500 MG 100 IV ×2 (15:25→22:17)
[2024-07-14] MEDS: SODIUM BICARBONATE 1300 MG PO ×2 (15:26→22:18)
--- NOTE | 2024-07-14 16:22 | CM ---
Patient seen at bedside with physicians and plan is for patient to return to SNF pending bed availability. Per liaison patient is not a bed hold but they will accept patient. CM will continue to follow for discharge planning needs.
Plan; return to SNF; when medically appropriate.
--- NOTE | 2024-07-14 18:36 | CON.CRS ---
Consultation
-
Performing Provider: William Franklin MD
Reason for Consultation: C. difficile colitis
Medical History
-
History of Present Illness:
Patient is a 73-year-old female with PMH of ESRD (HD MWF), paroxysmal A-fib (on Eliquis, last dose this morning), asthma, recent hospitalization in [place] April 2024 for (groin abscess complicated by C. difficile colitis, sepsis, RENATO
requiring HD) and recent hospitalization here 05/26/2024- 06/22/2024 for CRE Enterobacter bacteremia due to infected HD port who presents with persistent hypotension during HD yesterday in the setting of diarrhea for 3 to 4 days. During that time,
she denies any other symptoms. She did have some nausea and dry retching this morning, but otherwise denies nausea or vomiting, chest pain, SOB, abdominal pain or urinary symptoms. She was discovered to have positive C. difficile associated with
hypotension. She was started on levo this morning and this increased to 8 mcg by noon. It has been around 6 to 8 mcg since then. Her WBC was 16.6, went up to 23.5 this a.m. Her bicarb was 22 yesterday, 14 this morning and was switched to a
bicarb drip. An AXR this morning showed a dilated transverse colon to 7.4 cm, no free air. Colorectal was consulted for additional management.
Past Medical History
Past Medical History: Other (As above)
Past Surgical History: Other (Left total hip replacement, cataracts)
Social History
Tobacco: Former Smoker
Alcohol: None
Drug: None
Living: Snf
Employment: Retired
Family History
Family History: Other (Sister-locally invasive colon cancer at age 73 and from this)
Allergies / Home Medications
Allergy/AdvReac Type Severity Reaction Status Date / Time
cephalexin Allergy tolerates Verified 06/03/24 11:13
cefazolin
codeine Allergy Nausea / Verified 05/26/24 15:44
Vomiting
�Medication �Instructions �Recorded �Confirmed �Type
acetaminophen 500 mg tablet 500 mg PO Q8HPRN PRN mild pain 05/26/24 07/13/24 History
albuterol sulfate 90 mcg/actuation 2 puff inhalation R Q6HPRN PRN 05/26/24 07/13/24 History
aerosol inhaler (Ventolin HFA) wheezing
amiodarone 200 mg tablet 200 mg PO DAILY Heart 05/26/24 07/13/24 History
Disease/Condition
apixaban 5 mg tablet (Eliquis) 5 mg PO BID Blood Clot 05/26/24 07/13/24 History
Prevention/Tx
bisacodyl 10 mg rectal suppository 10 mg MO DAILYPRN PRN if no result 05/26/24 07/13/24 History
from mom
brompheniramine-phenylephrine 2 5 ml PO Q4HPRN PRN cough/congestion 05/26/24 07/13/24 History
mg-5 mg/5 mL oral liquid
ferrous gluconate 324 mg (38 mg 324 mg PO Q48H Supplement 05/26/24 07/13/24 History
iron) tablet
folic acid 1 mg tablet 1 mg PO DAILY Supplement 05/26/24 07/13/24 History
gabapentin 100 mg capsule 100 mg PO DAILY Pain 05/26/24 07/13/24 History
magnesium hydroxide 400 mg/5 mL 30 ml PO HSPRN PRN no bm by 3rd day 05/26/24 07/13/24 History
oral suspension (Milk of Magnesia)
melatonin 5 mg tablet 5 mg PO HS Sleep 05/26/24 07/13/24 History
miconazole nitrate 2 % topical 1 applic topical TID under b/l 05/26/24 07/13/24 History
powder breast,groin,ab
mometasone-formoterol HFA 200 2 puff inhalation R BID 05/26/24 07/13/24 History
mcg-5 mcg/actuation aerosol Lung/Breathing Issues
inhaler (Dulera)
montelukast 10 mg tablet 10 mg PO DAILY Allergies 05/26/24 07/13/24 History
rosuvastatin 5 mg tablet 5 mg PO DAILY High Cholesterol 05/26/24 07/13/24 History
Lactobac no.2-Bifidobac no.1-S. 2 cap PO DAILY probiotic 07/13/24 07/13/24 History
thermo 112.5 billion cell capsule
(Visbiome)
cyanocobalamin (vitamin B-12) 1,000 mcg PO NOON Supplement 07/13/24 07/13/24 History
1,000 mcg capsule
miconazole nitrate 2 % topical 1 spray topical BID groin 07/13/24 07/13/24 History
spray powder
miconazole nitrate 2 % topical 1 spray topical DAILYPRN PRN 07/13/24 07/13/24 History
spray powder incontinence areas
midodrine 5 mg tablet 5 mg PO TID hypotension 07/13/24 07/13/24 History
ondansetron HCl 4 mg tablet 4 mg PO Q6HPRN PRN nausea 07/13/24 07/13/24 History
pantoprazole 40 mg tablet,delayed 40 mg PO DAILY Gastrointestinal 07/13/24 07/13/24 History
release issue
Review of Systems
-
A 10 point review of systems was completed, and was negative except as per HPI.
Physical Exam
Vital Signs
Temp 97.8 F 07/14/24 09:22
Pulse 87 07/14/24 16:20
Resp Rate 22 07/14/24 16:20
Blood pressure 102/69 07/14/24 16:20
SaO2 96 07/14/24 16:32
07/13/24 07/14/24 07/15/24
06:59 06:59 06:59
Actual Weight 73.9 kg
Body Mass Index (BMI) 29.8
Lab Results / Allergies
WBC 23.5 10^3/uL (4.8-10.8) H 07/14/24 06:18
Hgb 12.0 g/dL (12.0-16.0) 07/14/24 06:18
Hct 38.1 % (37.0-47.0) 07/14/24 06:18
Plt Count 300 10^3/uL (130-400) 07/14/24 06:18
Abs Immat Gran (auto) 0.3 10^3/uL (0-0.05) H 07/14/24 06:18
Neutrophils % 83.8 % (42.2-75.2) H 07/14/24 06:18
Allergy/AdvReac Type Severity Reaction Status Date / Time
cephalexin Allergy tolerates Verified 06/03/24 11:13
cefazolin
codeine Allergy Nausea / Verified 05/26/24 15:44
Vomiting
Physical Exam
General: Well Developed, No Apparent Distress and Comfortable
HEENT: Normocephalic and Atraumatic
Respiratory: Non Labored Respirations
GI: Soft, Non Tender (No rebound or guarding), Non Distended and Other
Skin: Warm and Other (Slightly moist, but not diaphoretic)
Neuro: Awake, Alert and AO x 3
Assessment / Plan
-
73-year-old female with PMH of ESRD (HD MWF), paroxysmal A-fib (on Eliquis, last dose this morning), asthma, recent hospitalization in [place] April 2024 for (groin abscess complicated by C. difficile colitis, sepsis, RENATO requiring HD) and
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 She was found to be positive C.
difficile associated with hypotension. She was started on levo the morning of 07/14 and this increased to 8 mcg by noon, but stabilized. Her WBC was 16.6, bicarb 22. An AXR on 07/14 showed a dilated transverse colon to 7.4 cm, no free air.
Afebrile, HR WNL, levo at 8 mcg
WBC 23.5, bicarb 14, Cr 1.3, updated labs pending including repeat lactic
�Fulminant C. difficile colitis associated with septic shock
�Had worsening pressor requirements with acidosis earlier today but has stabilized since noon; no peritonitis on exam
�Continue p.o. and IV antibiotics; discussed with Dr. Glass, recommend initiating Vanco enemas due to questionable GI function currently (i.e.�not passing flatus, intermittent nausea)
�Had lengthy discussion with patient and patient's daughter; reviewed treatment options including surgery (i.e.�subtotal colectomy with end ileostomy) and continued nonoperative measures; risks with nonoperative measures include worsening clinical
status, organ failure and need for emergent surgery with additional risk; risks with surgery include, but not limited to, open incision, need for an ostomy (likely temporary, possibly permanent), bleeding, infection and anesthetic risks (i.e.�CT,
CVA, DVT/PE, respiratory failure and ); I explained that with her current situation, the best way to mitigate any further ramifications of her C. difficile infection is urgent surgery for source control; however, she has been stable for the
last 6 hours and surgery would be high risk with permanent change to her bowel function; she understood well the risks of each option and elected to continue nonoperative measures; additionally, I did discuss the option for palliative care and
electing to prioritize comfort, but confirmed she would like to continue all nonoperative measures
�Recommend NPO and switch IV meds to oral, except for p.o. antibiotics
�Hold all AC in case surgery
�Discussed with nephrology; will restart gentle IV fluids with bicarb
� Discussed with primary, Dr. Hernandez; will upgrade to ICU for closer monitoring
[2024-07-14 19:33] LABS: Hematocrit 39.3 % (37.0-47.0); Hemoglobin 12.6 g/dL (12.0-16.0); Mean Corp Hgb Conc. 32.1 g/dL (33.0-37.0); Mean Corpuscular Hgb 28.7 pg (27.0-31.0); Mean Corpuscular Volume 89.5 fL (81.0-99.0); Mean Platelet Volume 10.4 fL (7.4-10.4); Platelet Count 301 10^3/uL (130-400); Red Blood Cell Count 4.39 10^6/uL (4.20-5.40); Red Cell Dist. Width 17.7 % (11.5-14.5); White Blood Cell Count 25.5 10^3/uL (4.8-10.8)
[2024-07-14 19:46] LABS: Lactic Acid 1.1 mmol/L (0.7-2.0)
[2024-07-14 19:47] LABS: Blood Urea Nitrogen 51 mg/dl (7-17); Calcium 7.7 mg/dl (8.4-10.2); Carbon Dioxide 18 mmol/L (22-30); Chloride 95 mmol/L (98-107); Glucose 106 mg/dl (70-99); Potassium 4.1 mmol/L (3.5-5.1); Sodium 126 mmol/L (135-145)
[2024-07-14 19:57] LABS: Estimated Creatinine Clearance 15 ml/min; eGFR 14.82
--- NOTE | 2024-07-14 20:15 | TRANSFER ---
Patient transferred from ED into [facility] via stretcher with all belongings accompanied by RN.
[2024-07-14 20:18] LABS: % Basophils 0.7 % (0-2); % Immature Granulocytes 1.2 % (0-0.5); % Lymphocytes 8.5 % (20.5-51.1); % Monocytes 4.5 % (1.7-9.3); % Neutrophils 85.1 % (42.2-75.2); Absolute Basophils 0.2 10^3/uL (0-0.2); Absolute Immature Granulocytes 0.3 10^3/uL (0-0.05); Absolute Lymphocytes 2.2 10^3/uL (1.2-3.4); Absolute Monocytes 1.1 10^3/uL (0.1-0.6); Absolute Neutrophils 21.7 10^3/uL (1.4-6.5); Nucleated Red Blood Cells % 0 %
--- NOTE | 2024-07-14 21:21 | W.PN.SEPSIS ---
Sepsis
Vital Signs
Temp Pulse Resp BP Pulse Ox
97.7 F 94 23 99/68 98
07/14/24 19:35 07/14/24 19:31 07/14/24 19:31 07/14/24 19:31 07/14/24 19:20
Physical Exam
Physical Exam:
A focused exam was performed after fluid resuscitation.
Capillary Refill
Bilateral Upper Extremity:
Martin Time: Less than 3 sec
Bilateral Lower Extremity:
Martin Time: Less than 3 sec
Pulse Evaluation
Bilateral Radial:
Pulse Evaluation: Present
Bilateral Dorsalis Pedis:
Pulse Evaluation: Present
[2024-07-14] MEDS: FIRVANQ 500 MG PO (22:17)
[2024-07-15] VITALS (59 sets, daily range): BP systolic 73–158; BP diastolic 31–127
--- NOTE | 2024-07-15 00:01 | PTCARENOTE ---
Pt admitted to unit. Assessed as per flowsheet. A&Ox4. Moves all extremities and endorses (+) sensation x4. PERRLA 3. NSR on monitor. (+) edema generalized (+)1. RA. Sating mid 90's. Rectal trumpet placed as pt has had 3-4 liquid brown BM's since
arrival. Pt os anuric to oliguric. HD slatted for 07/15/24. Skin with DTI's to buttocks and heels as well as open areas to R groin and scabs as well as erythema to buttocks and groin. Pt states dark patches noted on admission are scars from previous
dx of shingles. Pt denies pain but did have small bout of emesis when given Sodium Bicarb tabs. Pt stated they are very dry and got 'caught in my throat'. No s/s of distress assessed. Will continue to monitor and provide meds as ordered.
[2024-07-15] MEDS: VANCOMYCIN ENEMA 500 MG RECTAL ×5 (01:11→21:17)
[2024-07-15] MEDS: PITRESSIN 100 IV (02:13)
--- NOTE | 2024-07-15 02:22 | PTCARENOTE ---
Addendum entered by Jane Hirsch RN 07/15/24 02:45:
clarified with PROTOTYPE TECHNICIAN. Vasopressin on hold until pt has a higher levo use. Will continue to monitor.
Original Note:
Pt SBP in the 80's - 90's. MAP in the upper 50's to 67. As per PROTOTYPE TECHNICIAN order Vasopressin started. Levo is infusing @ 14. Dsicussed possibility of PICC placement. IV team stated they would do it in the AM unless called by ICU staff. Omar ME given as
ordered enema. Pt did not tolerate well, leaking out quickly. Pt is aware it is ordered QID. Pt denies pain. No s/s of distress assessed. Will continue to monitor.
[2024-07-15] MEDS: LEVOPHED 250 IV ×5 (02:43→21:09)
[2024-07-15] MEDS: FLAGYL 500 MG 100 IV ×3 (05:53→21:31)
[2024-07-15] MEDS: FIRVANQ 500 MG PO ×4 (05:53→21:16)
[2024-07-15] MEDS: SODIUM BICARBONATE 1150 MEQ IV (05:53)
[2024-07-15 06:31] LABS: INR 4.59; PT 42.8 Sec (11.4-14.6)
[2024-07-15 06:32] LABS: APTT 45.3 Sec (23.4-35.0)
[2024-07-15 06:34] LABS: Hematocrit 35.2 % (37.0-47.0); Hemoglobin 11.6 g/dL (12.0-16.0); Mean Corpuscular Hgb 29.3 pg (27.0-31.0); Mean Corpuscular Volume 88.9 fL (81.0-99.0); Mean Platelet Volume 11.3 fL (7.4-10.4); Platelet Count 293 10^3/uL (130-400); Red Blood Cell Count 3.96 10^6/uL (4.20-5.40); Red Cell Dist. Width 17.4 % (11.5-14.5); White Blood Cell Count 29.1 10^3/uL (4.8-10.8)
--- NOTE | 2024-07-15 06:40 | VATNOTE ---
PCN CALLED TO HAVE PICC INSERTED AT THIS TIME. PT WITH RIJ HDC AND RUE APPEARS VERY SWOLLEN. ONE OF CURRENT IV SITES IS INFILTRTATED. SPOKE WITH Demario GRANADO AND AGREED TO INSERT ML AT THIS TIME TO PROVIDE IMMEDIATE ACCESS AND DETERMINE NEED FOR
PICC LATER THIS AM. ML INSERTED DOCUMENTED AND AM LABS OBTAINED.LEVO GTT INFUSING VIA ML AT THIS TIME. VAT TO FOLLOW.
[2024-07-15 07:01] LABS: Blood Urea Nitrogen 51 mg/dl (7-17); Calcium 6.8 mg/dl (8.4-10.2); Carbon Dioxide 20 mmol/L (22-30); Chloride 86 mmol/L (98-107); Estimated Creatinine Clearance 17 ml/min; Glucose 281 mg/dl (70-99); Magnesium 2.5 mg/dl (1.6-2.3); Phosphorus 4.2 mg/dl (2.5-4.5); Potassium 3.7 mmol/L (3.5-5.1); Sodium 121 mmol/L (135-145); eGFR 16.68
[2024-07-15 07:14] LABS: Lactic Acid 1.3 mmol/L (0.7-2.0)
[2024-07-15] MEDS: DESENEX/MITRAZOL/ZEASORB 1 APPLIC TOPICAL ×3 (07:31→21:17)
[2024-07-15 07:32] LABS: % Basophils 0.6 % (0-2); % Immature Granulocytes 1.7 % (0-0.5); % Lymphocytes 5.4 % (20.5-51.1); % Monocytes 4.3 % (1.7-9.3); Absolute Basophils 0.2 10^3/uL (0-0.2); Absolute Immature Granulocytes 0.5 10^3/uL (0-0.05); Absolute Lymphocytes 1.6 10^3/uL (1.2-3.4); Absolute Monocytes 1.3 10^3/uL (0.1-0.6); Absolute Neutrophils 25.6 10^3/uL (1.4-6.5); Nucleated Red Blood Cells % 0 %
[2024-07-15] MEDS: ProAmatine PO (07:32)
[2024-07-15] MEDS: SODIUM BICARBONATE 1300 MG PO (07:32)
[2024-07-15] MEDS: PACERONE PO (07:33)
[2024-07-15] MEDS: PROTONIX IV 40 MG IV (07:35)
--- NOTE | 2024-07-15 07:47 | W.PN.HOSP.TC ---
Addendum entered and electronically signed by Patricia Hernandez MD 07/15/24 18:01:
I saw and evaluated the patient independently. I reviewed the resident�s note and agree with findings and plan as documented by Dr. Dominguez.
GENERAL: well developed, well nourished, female in no apparent distress--today, seems more tired
HEENT: NC/AT--tunnelled HD cath right SC
HEART: regular rate and rhythm, +S1, +S2
LUNGS : clear to auscultation bilaterally
ABDOM: soft, nontender, nondistended, + bowel sounds
EXT: no cyanosis, clubbing, or edema
NEUROLOGIC: grossly intact
Septic shock POA with metabolic acidosis and pressor dependent hypotension-- with watery foul smelling diarrhea likely due to C. diff positivity--was started on Dificid but apprec ID--changed to oral vanco/flagyl--blood culture neg--WBC increasing
with increasing pressor requirements (max Levophed and now on vasopressin)--apprec wax bleacher--apprec CRS (recommending surgery) but pt declining at this time--cont IVF as per renal-- cont midodrine--surprisingly, lactic adid WNL--Eravacycline
started by ID (apprec input), discussing fecal transplant if pt survives without surgery, if pt elects for surgery then not needed as likely will be colectomy--asked hospice to weigh in for educational purposes only--no plans to withdraw care at
this time....
hyponatremia--sodium 121--getting HD--renal aware
Paroxysmal Afib- Continue Eliquis, may need to hold if surgery a possibility- Cont amiodarone
ESRD on HD- Nephrology following for HD needs- next HD plan Saturday
Asthma- Continue home meds
Anemia, chronic- Stable
Hypomagnesemia, hypokalemia likely due to diarrhea--replete as needed
Code status: DNR
DVT proph: Eliquis
Total Critical Care Time 33 minutes. I was immediately available to the patient and staff. I personally examined, reviewed labs, diagnostic images/reports, interpretations, treatment plans, discussed patient care with other providers and family
or caregivers (if patient is unable to make decisions), entered orders as appropriate and documented the medical record.
Original Note:
Today's Communication/Plan
-
Continue nonoperative measures per patient's and family's wishes
Continue oral vanco, vanco enema, IV metro, started eravacycline
Wean pressors as able
HD today
Replete calcium
Hospice consult
Assessment / Plan
Assessment / Plan
73 y/o female with h/o ESRD on HD and recent hospitalizations presenting with:
# Septic shock POA, likely 2/2 C. Diff
- CXR negative
- Norovirus neg, stool culture pending
- Leukocytosis, white count trending up, 29.1 today
- Patient was upgraded to ICU last night due to increased pressor needs, started at Levophed 4 --> 8 --> 20 mcg now, on vasopressin
- Lactic acid normal
- Normal bowel sounds, abdomen non tender
- C. Diff positive, Fulminant, second episode
- Abdominal x-ray (07/14): dilated transverse colon to 7.4 cm with wall thickness, no free air.
- Toxic megacolon? Afebrile, hr <120, white count 29, anemia? (chronic)
- Blood Cx no growth after 24 hours
- ID following - on oral vancomycin 500 QID, vancomycin enema, IV metronidazole 500 Q8hr and now eravacycline 75 IV BID
- Colorectal surgery following - discussed treatment options including surgery (i.e.�subtotal colectomy with end ileostomy) and continued nonoperative measures
- Patient and family currently declining surgery
- Daughter at bedside, asking about hospice, will consult hospice for education
# Hypotension likely volume depleted 2/2 diarrhea and dialysis
- on Levophed, titrate to keep MAP>65
- Continue to monitor bicarb, continue gentle IVF at 60 ml/hr with added bicarb
- Continue midodrine 10 tid
# Hypocalcemia
- Corrected calcium 8.2
- Replete as needed
# Hyponatremia
- Nephrology following
- HD today
# Paroxysmal Afib
- Eliquis held
- Cont amiodarone
# ESRD on HD
- Nephrology following
- HD today
# Asthma
- PO home meds held
# Anemia, chronic
- Stable
# Hypomagnesemia, hypokalemia likely 2/2 diarrhea
- Repleted as needed
Code status: DNR
DVT prophylaxis: Eliquis
Anticipated Discharge: > 48 hours
Subjective/Interval History
-
Date of Service: July 15, 2024
Objective Data
-
Labs:
Laboratory Results
07/14/24 07/15/24 07/15/24
19:17 05:51 05:52
WBC 29.1 H
Hgb 11.6 L
Hct 35.2 L
Plt Count 293
PT 42.8 H
INR 4.59
APTT 45.3 H
Sodium 126 L 121 L
Potassium 4.1 3.7
Chloride 95 L 86 L
Carbon Dioxide 18 L 20 L
BUN 51 H 51 H
Creatinine 3.2 H 2.9 H
Glucose 106 H 281 H
Calcium 7.7 L 6.8 L*
Vital Signs:
Vital Signs
Temp Pulse Resp BP Pulse Ox
97 F 86 21 112/54 95
07/15/24 07:32 07/15/24 02:45 07/15/24 02:45 07/15/24 02:45 07/15/24 02:30
I&O
07/14/24 07/15/24 07/16/24
06:59 06:59 06:59
Intake Total 787.5 / 787.5 1515
Output Total 100 / 100 0 / 0
Balance 687.5 / 687.5 1515
Review of Systems
-
History Source: Patient and Family
Constitutional: Reports No Symptoms
EENT: Reports No Symptoms Reported
Respiratory: Reports No Symptoms
Cardiac: Reports No Symptoms
Abdomen/GI: Reports Diarrhea
Breast: Reports No Symptoms
Genitourinary: Reports No Symptoms
Musculoskeletal: Reports No Symptoms
Skin: Reports No Symptoms
Neuro: Reports No Symptoms
Endocrine: Reports No Symptoms
Hematologic / Lymphatic: Reports No Symptoms
Allergy / Immunology: Reports No Symptoms
Physical Exam
-
General: Well Developed and Well Nourished
HEENT: Normocephalic
Respiratory: Clear to Auscultation
Cardiac: Regular Rhythm and S1/S2
GI: Soft, Nontender, Nondistended and Normal Bowel Sounds; Negative Tender
Genito-urinary: No Costovertebral Tender
Musculoskeletal: No Clubbing and No Cyanosis
Skin: Warm
Neuro: Awake, Alert and Oriented
Hematologic / Lymphatic: No Lymphadenopathy
Psych: Anxious
--- NOTE | 2024-07-15 07:48 | W.PN.CRS1 ---
Today's Communication / Plan
-
As below
Assessment/Plan
-
73-year-old female with PMH of ESRD (HD MWF), paroxysmal A-fib (on Eliquis, last dose this morning), asthma, recent hospitalization in [place] April 2024 for (groin abscess complicated by C. difficile colitis, sepsis, RENATO requiring HD) and
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 She was found to be positive C.
difficile associated with hypotension. She was started on levo the morning of 07/14 and this increased to 8 mcg by noon, but stabilized. Her WBC was 16.6, bicarb 22. An AXR on 07/14 showed a dilated transverse colon to 7.4 cm, no free air.
Afebrile, HR WNL, levo at 18, +vaso
WBC 29.1 from 23.5, Na 121, bicarb 20, Lac 1.3
�Fulminant C. difficile colitis associated with septic shock
� Worsening pressor requirement and leukocytosis; no evidence of peritonitis
�Continue PO, IV and DE antibiotics
�Discussed with patient treatment options at this point; I recommended moving forward with surgery due to worsening clinical status, now with 2 pressors; however, patient declining to make a decision until her daughter arrives, which will be in 30
or so minutes; I explained that if we do not do surgery, she may continue to decline and develop organ dysfunction; she can decline surgery and continue full medical management; she can also transition her priorities to comfort; she understood and
would like to discuss with her daughter
�Continue NPO, no oral meds except antibiotics
� Continue holding AC
� Gentle IVF with bicarb, appreciate nephrology
� Appreciate hospitalist; my partner Dr. Reed will [place] back to discuss with patient and patient's daughter
Subjective Data
Subjective Data
Date of Service: July 15, 2024
Overnight, patient had increasing pressor requirement starting around midnight, currently at levo 18 and vaso. She is also on hemodialysis.
Denies any issues. No abdominal pain, no N/V. Has not passed flatus or BM since last night.
Objective Data
-
Vital Signs
Temp Pulse Resp BP Pulse Ox
97 F 86 21 112/54 95
07/15/24 07:32 07/15/24 02:45 07/15/24 02:45 07/15/24 02:45 07/15/24 02:30
Intake & Output
07/14/24 07/15/24 07/16/24
06:59 06:59 06:59
Intake Total 787.5 / 787.5 1516 / 1516
Output Total 100 / 100 0 / 0
Balance 687.5 / 687.5 1516 / 1516
Intake:
Oral fluids 0 / 0 0 / 0
IV fluids (Total) 687.5 / 687.5 1416 / 1416
Levophed 67.5 / 67.5 936 / 936
Nss 1,000 ml @ 60 mls/hr IV . 620 / 620 480 / 480
[id number] [facility] Rx#:[id number]
IV piggybacks 100 / 100 100 / 100
Output:
Urine, Griffiths 100 / 100
Urine, Voided 0 / 0 0 / 0
Other:
Number of unmeasured liquid
stools
Rectum 3
Lab Results
07/15/24 05:51
07/15/24 05:52
Physical Exam
-
General: No Acute Distress and AOx3
HEENT: Grossly Normal
Abdomen: Soft, Non Distended, Non Tender, No Guarding and No Rebound
Skin: Warm and Dry
[2024-07-15] MEDS: SYMBICORT 160/4.5 MCG INHALER 2 PUFF INH ×2 (08:45→19:51)
--- NOTE | 2024-07-15 08:47 | CON.INTV ---
Addendum entered and electronically signed by Rajesh Luna MD 07/15/24 12:58:
Patient seen and examined independently by myself. Resident note below reviewed, agree with assessment and plan
History obtained from the patient and daughter at the bedside and reviewing hospital records
Briefly, patient is a 73-year-old female with history of end-stage renal disease diagnosed in April 2024 when hospitalized at [facility]. She had a prolonged hospital stay and has been primarily to rehabilitation, SNF since then. She
recently was evaluated in the ER and admitted for C. difficile colitis. She returns with progressive symptoms, hypotension found while at dialysis. According to the daughter, patient was more lethargic and fatigued. Patient was initially admitted
for progressive C. difficile colitis, hypertension but was subsequently transferred to ICU due to concern for sepsis. We are asked to help from critical care standpoint
For family history, social history, review of systems, prior medical history see below
Patient has history of paroxysmal atrial fibrillation, left hip replacement, but otherwise denies history of stroke, heart attack, cancer, blood clots
Distant smoking history noted
Physical exam
Patient currently receiving hemodialysis
Right IJ HD catheter intact
Chest exam is clear
Abdominal exam soft, slightly distended, mildly tender but no obvious rebound
Extremities no clubbing, cyanosis. She has trace edema. She has bilateral lower bandages in place
Neurologically she moves all extremities
Data reviewed
White count 29.1, hemoglobin 11.6, blood sugar 281, INR 4.59
C. difficile positive
Chest x-ray with mild left diaphragmatic eventration
Lactate normal
EKG unremarkable, nonspecific ST-T wave changes. Diffuse T wave inversion
A/P
Reviewed at length clinical course with patient, daughter at bedside including primary service and colorectal surgery
Patient is considering quality of life and is airing towards conservative management. She understands as the daughter that we may have a window for surgical intervention but this may be more difficult if she clinically progresses
At this time, patient is considering conservative management.
moving forward
Continue with IV fluids gentle. Hemodialysis today, less fluid removal. Reviewed with nephrology
Less likely thromboembolic disease given anticoagulation
Start sliding scale insulin, follow blood sugars
Remains on vancomycin/Flagyl
Hyponatremia also noted. Nephrology following
Reviewed with critical care nursing, respiratory care, pharmacy, case management
Reviewed with primary service, colorectal surgery
TCCT 33 min
Original Note:
Consultation
Consultation Request
Date/Time Consultation Requested: 07/14/2024,19:48
Date/Time Consultation Performed: 07/15/2024,08:10
Requesting Provider: Le Alexis
Performing Provider: Rajesh Luna
Reason for Consultation: Septic Shock
Medical History
-
Chief Complaint: Lethargic and low blood pressures
History of Present Illness:
Patient is a 73-year-old female, with end-stage renal disease on hemodialysis, 3 times a week with 3.5-hour session each. She also has history of paroxysmal atrial fibrillation, on amiodarone and anticoagulation with Eliquis. She has chronic
hypotension for which she takes midodrine 5 mg 3 times a day.
Of note, she was recently admitted 05/26 to 06/22 [facility] for hemodialysis catheter related infection with CRE-Enterobacter for which she received antibiotics for 2 weeks including aztreonam/avibactam. At that time she also received
fluconazole for intertrigo, valacyclovir for shingles and oral vancomycin for C. difficile. She was discharged to [facility] and presented on Saturday, 07/13 with severely reduced blood pressure, systolic blood pressure in 50s and heart rate was
above 100. She stated that she has had diarrhea for 2 days with foul-smelling, loose stools, with no blood or mucus. She denied abdominal pain, nausea, vomiting, chest pain, urinary symptoms, fever, dizziness, shortness of breath. Patient denied
sick contacts. She did had an episode of atrial fibrillation,when her heart rate jumped up to 170s, self resolved to sinus rhythm, her home dose of amiodarone was continued.
She fulfilled the criteria of septic shock on admission, since she had a recent hospital stay where she received broad-spectrum antibiotics, currently had leukocytosis, and diarrhea, C. difficile was checked and it came back positive. This is her
second C. difficile infection. ID was consulted, given patient's condition, being hemodynamically unstable and dependent on vasopressors, ID decided to shift her from oral fidaxomicin to oral vancomycin 500 mg 3 times a day and IV metronidazole 500
mg 3 times a day along with eravacyclin 1 mg/kg IV 12 hourly. An abdominal x-ray was done, that showed at the transverse colon thickening, loss of haustrations and it was 7.4 cm in diameter. Colorectal surgery was consulted, who gave the option of
subtotal colectomy with ileostomy and started vancomycin enemas, patient was hesitant, now feels that she might like to pursue the surgery. Surgical option is still under discussion.
Today on 07/15/2024, patient is on hemodialysis, nephrology following, patient hyponatremic in the morning, nephro okay with a bolus of fluid.
Past Medical History
Past Medical History: Arrhythmias (Paroxysmal atrial fibrillation), HTN, Hypercholesterolemia, Renal Failure (Hemodialysis 3 times a week, 3.5 our session each) and Other (Shingles, intertrigo, C. difficile colitis)
Past Surgical History: Orthopedic (Left hip replacement, cataract surgery)
Social History
Tobacco: Former Smoker
Alcohol: Occasional
Drug: None
Living: [facility]
Employment: Retired
Family History
Family History: Reviewed & Not Pertinent
Allergies / Home Medications
Allergies
Allergy/AdvReac Type Severity Reaction Status Date / Time
cephalexin Allergy tolerates Verified 06/03/24 11:13
cefazolin
codeine Allergy Nausea / Verified 05/26/24 15:44
Vomiting
Home Medications
�Medication �Instructions �Recorded �Confirmed �Last Taken �Type
acetaminophen 500 mg tablet 500 mg PO Q8HPRN PRN mild pain 05/26/24 07/13/24 Unknown History
albuterol sulfate 90 mcg/actuation 2 puff inhalation R Q6HPRN PRN 05/26/24 07/13/24 Unknown History
aerosol inhaler (Ventolin HFA) wheezing
amiodarone 200 mg tablet 200 mg PO DAILY Heart 05/26/24 07/13/24 Unknown History
Disease/Condition
apixaban 5 mg tablet (Eliquis) 5 mg PO BID Blood Clot 05/26/24 07/13/24 Unknown History
Prevention/Tx
bisacodyl 10 mg rectal suppository 10 mg CO DAILYPRN PRN if no result 05/26/24 07/13/24 Unknown History
from mom
brompheniramine-phenylephrine 2 5 ml PO Q4HPRN PRN cough/congestion 05/26/24 07/13/24 Unknown History
mg-5 mg/5 mL oral liquid
ferrous gluconate 324 mg (38 mg 324 mg PO Q48H Supplement 05/26/24 07/13/24 Unknown History
iron) tablet
folic acid 1 mg tablet 1 mg PO DAILY Supplement 05/26/24 07/13/24 Unknown History
gabapentin 100 mg capsule 100 mg PO DAILY Pain 05/26/24 07/13/24 Unknown History
magnesium hydroxide 400 mg/5 mL 30 ml PO HSPRN PRN no bm by 3rd day 05/26/24 07/13/24 Unknown History
oral suspension (Milk of Magnesia)
melatonin 5 mg tablet 5 mg PO HS Sleep 05/26/24 07/13/24 Unknown History
miconazole nitrate 2 % topical 1 applic topical TID under b/l 05/26/24 07/13/24 Unknown History
powder breast,groin,ab
mometasone-formoterol HFA 200 2 puff inhalation R BID 05/26/24 07/13/24 Unknown History
mcg-5 mcg/actuation aerosol Lung/Breathing Issues
inhaler (Dulera)
montelukast 10 mg tablet 10 mg PO DAILY Allergies 05/26/24 07/13/24 Unknown History
rosuvastatin 5 mg tablet 5 mg PO DAILY High Cholesterol 05/26/24 07/13/24 Unknown History
Lactobac no.2-Bifidobac no.1-S. 2 cap PO DAILY probiotic 07/13/24 07/13/24 Unknown History
thermo 112.5 billion cell capsule
(Visbiome)
cyanocobalamin (vitamin B-12) 1,000 mcg PO NOON Supplement 07/13/24 07/13/24 Unknown History
1,000 mcg capsule
miconazole nitrate 2 % topical 1 spray topical BID groin 07/13/24 07/13/24 Unknown History
spray powder
miconazole nitrate 2 % topical 1 spray topical DAILYPRN PRN 07/13/24 07/13/24 Unknown History
spray powder incontinence areas
midodrine 5 mg tablet 5 mg PO TID hypotension 07/13/24 07/13/24 Unknown History
ondansetron HCl 4 mg tablet 4 mg PO Q6HPRN PRN nausea 07/13/24 07/13/24 Unknown History
pantoprazole 40 mg tablet,delayed 40 mg PO DAILY Gastrointestinal 07/13/24 07/13/24 Unknown History
release issue
Review of Systems
-
History Source: Patient
Constitutional: No Symptoms
EENT: No Symptoms
Respiratory: No Symptoms
Cardiac: No Symptoms
Abdomen/GI: Diarrhea
: No Symptoms
Musculoskeletal: No Symptoms
Skin: No Symptoms
Neuro: No Symptoms
Endocrine: No Symptoms
Hematologic/Lymphatic: No Symptoms
Vitals / Labs / Diagnostic Testing
Vital Signs
Temp Pulse Resp BP Pulse Ox
97 F 86 21 112/54 95
07/15/24 07:32 07/15/24 02:45 07/15/24 02:45 07/15/24 02:45 07/15/24 02:30
Lab Data
07/15/24 05:51
07/15/24 05:52
Laboratory Results
07/15/24
05:52
PT 42.8 H
INR 4.59
APTT 45.3 H
Microbiology
07/13/24 15:58 Blood/Venous Blood Culture - Preliminary
No Growth in 24 hours- Final report to follow
07/14/24 02:10 Feces/Stool C. difficile [facility]DH Antigen & Toxins - Final
Toxigenic C.difficile Positive
07/14/24 02:10 Feces/Stool - Final
Negative for Norovirus GI and GII.
Diagnostic Testing:
Physical Exam
-
HEENT: Normocephalic, Anicteric and Moist Mucous Membranes
Cardiovascular: S1/S2, Regular Rhythm and Other (No rubs or murmurs)
Respiratory: Clear
GI: Soft, Tender (Mildly tender in left lower quadrant) and Normal Bowel Sounds
Neurology: Awake, Oriented and No Motor Deficits
Skin: Warm and Dry
General: Other (Anxious, teary, worried about her condition)
Assessment
-
Impression
Patient is a 73-year-old female, past medical history of end-stage renal disease hemodialysis dependent, paroxysmal atrial fibrillation, C. difficile in the past, recently discharged from [facility] on June 22 after receiving
broad-spectrum antibiotics for 2 weeks for hemodialysis catheter related infection. At that time received fluconazole for intertrigo, valacyclovir for shingles, oral vancomycin for C. difficile. Now presented with foul-smelling diarrhea for 2 days
and progressive septic shock including, low blood pressures, elevated WBC count, vasopressor dependence.
Evidence of C. difficile colitis on abdominal x-ray, transverse colon 7.4 cm with the loss of haustrations.
Progressively worsening condition, increased amount of vasopressors, WBC count worsening, ID and colorectal surgery on board.
On oral vancomycin, IV metronidazole and IV eravacyclin. Surgery is in discussion.
Assessment
Septic shock secondary to C. difficile colitis
Transverse megacolon secondary to C. difficile?
Paroxysmal atrial fibrillation
End-stage renal disease
Hypokalemia
Hypomagnesemia
Plan
Septic shock secondary to C. difficile colitis
Toxigenic C. difficile positive
MRSA positive
Hypotensive, vasopressor dependence, increasing requirement trend
Leukocytosis-WBC count trending up-29.1
Heart rate 104
On oral vancomycin, IV metronidazole, and IV eravacyclin as per ID
If patient chooses nonoperative management-ID considering oral fecal transplant-paperwork started as it takes a long time
Continue to monitor blood pressure, TLC count, antibiotics
Transverse megacolon secondary to C. difficile?
Abdominal x-ray done on 07/14/2024 suggest mild gaseous dilatation of transverse colon, with maximum diameter of 7.4 cm. Suggestion of wall thickening involving transverse colon, suggesting colitis
Colorectal surgery consult appreciated-started vancomycin enemas due to suspected adynamic ileus-gave the patient option of subtotal colectomy with ileostomy
Patient still deciding about surgery, decision pending
As per colorectal surgery time will be critical at this moment since as the patient gets worse they might not be able to pursue the surgery
Paroxysmal atrial fibrillation
On amiodarone 200 mg daily
Eliquis on hold
End-stage renal disease
On hemodialysis, receives 3 times a week, 3.5-hour session each
Nephro following-consult appreciated
Hypokalemia
Replete as needed
Hypomagnesemia
Replete as needed
Hyponatremia
Sodium trending down from 130-126-121 now
Give fluid bolus
Continue to monitor
Send serum osmolality, urine osmolality, urine sodium
Keep MAP greater than 65
Keep potassium greater than 4 and magnesium greater than 2
Supplemental oxygen as needed
DVT prophylaxis-sequential compression devices
CODE STATUS-DNR
--- NOTE | 2024-07-15 08:52 | W.PN.ID1 ---
Date of Service
Date of Service: July 15, 2024
Today's Communication
- continue oral vancomycin 500 mg PO QID, vancomycin enemas and IV metronidazole 500 mg IV Q8 hours
- added eravacycline 1 mg/kg iv q12
- colectomy being considered, I would be in support given progressive shock
Assessment / Plan
Fulminant C difficile
Septic Shock - progressive
ESRD on HD via HD catheter
- second episode
- recently completed two week course of broad spectrum therapy
- blood cultures x2 - no growth to date
- continue oral vancomycin 500 mg PO QID, vancomycin enemas and IV metronidazole 500 mg IV Q8 hours
- added eravacycline 1 mg/kg iv q12
- colectomy being considered, I would be in support given progressive shock - discussed with patient and daughter
- I provided the necessary paperwork to daughter to apply for prescription assistance for outpatient oral fecal transplant. If colectomy is pursued then I would not pursue this treatment, however, it takes days to arrange it and I would proceed
with getting approval. If pursued, then as patient is on HD will need a script on dc for 250 mg of polyethylene glycol once as laxative after completion of fidaxomicin/oral vanc prior to the fecal transplant.
Recent colonization with CRE Enterobacter
Resolved HD catheter infection with CRE enterobacter
- follow up blood cultures this visit, previously cleared
Hyponatremia
- management per IM service
Patient is critically ill on pressors, follow pressor requirements, additional imaging, cbc and physical exam.
Chief Complaint
-: C-diff
Subjective / Review of Systems
afebrile
progressive shock- increased pressors overnight
she is tolerating HD this AM
enema leaked out quickly last night, would continue at this time
frustrated but no abdominal pain
Vital Signs / Physical Exam
Vital Signs
Vital Signs
Temp Pulse Resp BP Pulse Ox
97 F 104 20 112/54 94
07/15/24 07:32 07/15/24 08:47 07/15/24 08:47 07/15/24 02:45 07/15/24 08:47
Physical Exam
Constitutional: Acutely Ill and Chronically Ill
Cardiovascular: Regular Rate and S1/S2; Negative Murmur or Rub
Pulmonary: Clear and Symmetric; Negative Wheezes or Rales
Gastrointestinal: Soft, Non Tender (with deep palpation, no peritoneal signs), Non Distended and Normal Bowel Sounds (clearly auscultated during my exam)
Skin: Warm and Dry; Negative Rash or Jaundice
Neurological: Awake
Objective Data
Lab Data
Lab Results
07/15/24 05:51
07/15/24 05:52
PT 42.8 Sec (11.4-14.6) H 07/15/24 05:52
INR 4.59 07/15/24 05:52
APTT 45.3 Sec (23.4-35.0) H 07/15/24 05:52
Estimated Creat Clear 17 ml/min 07/15/24 05:52
Lactic Acid 1.3 mmol/L (0.7-2.0) 07/15/24 05:51
Total Bilirubin 0.6 mg/dl (0.2-1.3) 07/13/24 11:18
AST 16 U/L (14-36) 07/13/24 11:18
ALT < 10 U/L (0-35) 07/13/24 11:18
Alkaline Phosphatase 150 U/L (38-126) H 07/13/24 11:18
C-Reactive Protein 200.30 mg/L (0.0-10.00) H 07/13/24 11:18
Most recent labs reviewed.
Acidosis improved with bicarconate
acute progression of hyponatremia noted
Micro Results:
07/13/24 15:58 Blood Culture - Preliminary
Blood/Venous No Growth in 24 hours- Final report to follow
07/14/24 12:48 Blood Culture - Pending
Blood/Venous
07/14/24 02:10 C. difficile GDH Antigen & Toxins - Final
Feces/Stool Toxigenic C.difficile Positive
- Final
Negative for Norovirus GI and GII.
07/14/24 06:18 MRSA Screen - Pending
Nose
07/14/24 02:10 Salmonella/Shigella Culture - Pending
Feces/Stool Campylobacter Culture - Pending
Shiga Toxin Test - Pending
--- NOTE | 2024-07-15 09:13 | W.PN.NEPH.PH ---
Today's Communication / Plan
-
HD
Assessment/Plan
-
Assessment:
POssible sepsis
Hypotension
C diff diarrhea
Recent Enterobacter bacteremia/GNR - Panresistant-completed abx on 06/19
Hypotension on midodrine
ESRD on HD-MWF through [facility]
Anemia
h/o GIB
Chronic hypoxic respiratory insufficiency
h/o urinary retention
parox a-fib
hyperlipidemia
Hx c-diff colitis
osteoarthritis
Chronic wounds
Hypoantremia
Plan:
HD today
keep MAP > 65
wean pressors as allowed
abx per primary team
pt to decide on surgical options
critical care time 31 minutes
-
-
Date of Service: July 15, 2024
CC / HPI / ROS
-
Chief Complaint:
ESRD
History of Present Illness:
met acidosis improving 20
Na worse 121
on abx for C diff
no fever, WBC up at 29k
on pressors for hypotension
critically ill in ICU
Review of Systems:
no cp or sob
feels well rectal tube in, liquid stools
Labs
-
Labs:
WBC 29.1 10^3/uL (4.8-10.8) H 07/15/24 05:51
RBC 3.96 10^6/uL (4.20-5.40) L 07/15/24 05:51
Hgb 11.6 g/dL (12.0-16.0) L 07/15/24 05:51
Hct 35.2 % (37.0-47.0) L 07/15/24 05:51
Plt Count 293 10^3/uL (130-400) 07/15/24 05:51
Sodium 121 mmol/L (135-145) L 07/15/24 05:52
Potassium 3.7 mmol/L (3.5-5.1) 07/15/24 05:52
Chloride 86 mmol/L (98-107) L 07/15/24 05:52
Carbon Dioxide 20 mmol/L (22-30) L 07/15/24 05:52
BUN 51 mg/dl (7-17) H 07/15/24 05:52
Creatinine 2.9 mg/dL (0.6-1.0) H 07/15/24 05:52
eGFR 16.68 07/15/24 05:52
Glucose 281 mg/dl (70-99) H 07/15/24 05:52
Calcium 6.8 mg/dl (8.4-10.2) L* 07/15/24 05:52
Phosphorus 4.2 mg/dl (2.5-4.5) 07/15/24 05:52
Lkq-W-Szsfjsunphn Pept 590 pg/ml 07/13/24 12:59
Albumin 2.2 g/dl (3.5-5.0) L 07/13/24 11:18
Physical Exam
-
Vital Signs:
Vital Signs
Temp Pulse Resp BP Pulse Ox
97 F 104 20 112/54 94
07/15/24 07:32 07/15/24 08:47 07/15/24 08:47 07/15/24 02:45 07/15/24 08:47
Cardiovascular:: Regular rate and rhythm
Respiratory:: Bilateral: Coarse
Lung Excursion:: Normal
Abdomen:: Nontender and Soft
Bowel Sounds:: Normal
Extremity Edema:: None: Bilateral:
--- NOTE | 2024-07-15 09:16 | W.PN.NEPH.HD ---
Assessment
-
Seen on dialysis. No pain. Rectal tube in place with liquid stools. Vital signs stable on pressors. Access good
Progress Note - Hemodialysis
-
Date of Service: July 15, 2024
Duration: 30 minutes and 3 hours
Potassium Bath: 3
Calcium Bath: 2.5
Opti-Dialyzer: 160
Ultrafiltration: Other (1 kg)
Blood Flow: 400
Dialysate Flow: 600
Heparin: No
EPO: no
--- NOTE | 2024-07-15 09:30 | PTCARENOTE ---
Pt received in bed @ 0700. AAOx3. Denying pain. Pt with generalized weakness. States the is mostly bed bound with occasional use of wheel chair. SaO2 96% on room air. Sinus rhythm on cardiac monitor. Pt with sudden spike in heart rate to 170s
sustained during dialysis. Levophed gtt infusing with goal of MAP > 65. Hypotension increased with HR. BP 66/48. Levophed gtt to 20mcg/min and Vasopressin gtt started. EKG obtained, but pt had already returned to Sinus Rhythm. Rectal trumpet in
place. Vanco enema administered. No urine for sample. Undergoing dialysis. Skin as documented.
[2024-07-15] MEDS: ProAmatine 10 MG PO ×3 (10:22→16:18)
[2024-07-15] MEDS: XERAVA 257.5 MG IV ×2 (10:22→20:18)
[2024-07-15] MEDS: PACERONE 200 MG PO (10:29)
[2024-07-15] MEDS: NSS 500 IV (10:34)
[2024-07-15 10:53] LABS: Glucose - Point of Care 114 mg/dl (70-99)
[2024-07-15 12:04] LABS: Glucose - Point of Care 103 mg/dl (70-99)
[2024-07-15] MEDS: CALCIUM GLUCONATE 100 IV (12:36)
--- NOTE | 2024-07-15 12:48 | W.PN.CRS1 ---
Today's Communication / Plan
-
decision made for no surgery per family
Assessment/Plan
-
73-year-old female with PMH of ESRD (HD MWF), paroxysmal A-fib (on Eliquis, last dose this morning), asthma, recent hospitalization in [place] April 2024 for (groin abscess complicated by C. difficile colitis, sepsis, RENATO requiring HD) and
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 She was found to be positive C.
difficile associated with hypotension. She was started on levo the morning of 07/14 and this increased to 8 mcg by noon, but stabilized. Her WBC was 16.6, bicarb 22. An AXR on 07/14 showed a dilated transverse colon to 7.4 cm, no free air.
WBC: 29.1 from 25.5, afebrile, HR normal
levophed gtt, vasopressin gtt
-Discussed situation at length with daughter, decision made by patient and family that will hold off on surgery for now. Will maximize medical measures.
-IV abx-vancomycin and Flagyl per ID
-Wean pressors as able
-Other measures per primary team
Subjective Data
Subjective Data
Date of Service: July 15, 2024
Objective Data
-
Vital Signs
Temp Pulse Resp BP Pulse Ox
97.5 F 104 20 112/54 94
07/15/24 11:14 07/15/24 08:47 07/15/24 08:47 07/15/24 02:45 07/15/24 12:22
Intake & Output
07/14/24 07/15/24 07/16/24
06:59 06:59 06:59
Intake Total 787.5 / 787.5 1516 / 1516
Output Total 100 / 100 0 / 0
Balance 687.5 / 687.5 1516 / 1516
Intake:
Oral fluids 0 / 0 0 / 0
IV fluids (Total) 687.5 / 687.5 1416 / 1416
Levophed 67.5 / 67.5 936 / 936
Nss 1,000 ml @ 60 mls/hr IV . 620 / 620 480 / 480
[id number] [facility] Rx#:[id number]
IV piggybacks 100 / 100 100 / 100
Output:
Urine, Griffiths 100 / 100
Urine, Voided 0 / 0 0 / 0
Other:
Number of unmeasured liquid
stools
Rectum 3
Lab Results
07/15/24 05:51
07/15/24 05:52
Physical Exam
-
General: No Acute Distress and AOx3
Abdomen: Soft and Tender (mild lower b/l)
Skin: Warm and Dry
--- NOTE | 2024-07-15 13:03 | HOSPNOTE ---
Spoke with patient and daughter and explained hospice and the philosophy. They would like to talk further with each other and make some decisions. The plan with hospice would be return to [facility] with hospice services. Once family makes
decisions will notify CM to send referral. More information to follow.
--- NOTE | 2024-07-15 13:35 | PTCARENOTE ---
Pt reassessed. Pt tearful at times. Daughter and pt have decided to refuse surgery. Met with Hospice for information to decide further management of care. Levophed and Vasopressin gtt continue.
[2024-07-15 16:14] LABS: Osmolality Serum 280 mOsm/kg (275-300)
--- NOTE | 2024-07-15 16:42 | PTCARENOTE ---
Pt reassessed. Denying pain and nausea. Weaning Levophed gtt per order. Currently infusing @ 14 mcg/min. Vasopressin gtt continues. Rectal trumpet with loose brown output. Family at bedside.
--- NOTE | 2024-07-15 17:09 | CM ---
Patient seen at bedside earlier today, consult for education with hospice tt to liaison and she will follow up with patient and daughter.
[2024-07-15 18:23] LABS: Glucose - Point of Care 138 mg/dl (70-99)
--- NOTE | 2024-07-15 20:00 | PTCARENOTE ---
Addendum entered by Meseret Silver RN 07/16/24 00:18:
LUE midline, not PICC.
Original Note:
Received pt from previous shift. Systems reviewed, see flowsheets. Pt lying comfortably in bed, denying pain at this time. SaO2 94-95% on RA. NSR on heart monitor with prolonged QTc. Rectal trumpet in place. R IJ HD catheter in place. LUE PICC with
levophed gtt at 14mcg/52.5mL. L wrist PIV with sodium bicarb gtt at 60mL/hr. Family at bedside just left for the night.
Of note, vital signs saved from 14:15 until now.
--- NOTE | 2024-07-15 20:10 | W.PN.UPDATE ---
Update Note
Progress Note Update
I had a discussion with the patient and her daughter this morning regarding the treatment options. We discussed continued nonoperative management versus surgery, with the risks and benefits of each. Without surgery there is a risk of worsening
sepsis, colonic perforation and . Surgery would involve a subtotal colectomy with ileostomy which would most likely be permanent. Risks of surgery include, but are not limited to, bleeding, infection, adhesions, hernias, stoma complications,
electrolyte/fluid balance issues, injury to other structures, DVT, cardiopulmonary complications, and even . At the present time they do not wish to have surgery which I feel is reasonable. The plan is to continue with the current treatment by
the ICU, ID and nephrology. I encouraged them to contact me anytime with questions.
[2024-07-15] MEDS: MELATONIN PO (21:17)
[2024-07-16] VITALS (55 sets, daily range): BP systolic 67–123; BP diastolic 35–71; BMI 32.3
--- NOTE | 2024-07-16 | PTCARENOTE ---
Systems reviewed, no changes in assessment at this time. Weaning levophed as tolerated, see worklist.
[2024-07-16 00:01] LABS: Glucose - Point of Care 130 mg/dl (70-99)
[2024-07-16] MEDS: SODIUM BICARBONATE 1150 MEQ IV (00:50)
[2024-07-16] MEDS: LEVOPHED 250 IV ×5 (01:58→23:01)
[2024-07-16] MEDS: FIRVANQ 500 MG PO ×3 (03:47→21:38)
--- NOTE | 2024-07-16 04:00 | PTCARENOTE ---
Systems reviewed. No changes in assessment. Pt did not tolerate recent PO vanco dose and immediately threw it up.
[2024-07-16 05:56] LABS: Lactic Acid 1.3 mmol/L (0.7-2.0)
[2024-07-16] MEDS: FLAGYL 500 MG 100 IV ×3 (05:56→21:38)
[2024-07-16 06:23] LABS: Blood Urea Nitrogen 24 mg/dl (7-17); Calcium 6.9 mg/dl (8.4-10.2); Carbon Dioxide 28 mmol/L (22-30); Chloride 91 mmol/L (98-107); Estimated Creatinine Clearance 28 ml/min; Glucose 130 mg/dl (70-99); Magnesium 1.9 mg/dl (1.6-2.3); Potassium 3.3 mmol/L (3.5-5.1); Sodium 127 mmol/L (135-145); eGFR 29.57
--- NOTE | 2024-07-16 06:27 | PTCARENOTE ---
BMP revealed critical calcium of 6.9. Bostic texted hospitalist David as well as Fermenter Champagne. Dr. Hernandez to order repletion.
[2024-07-16 06:58] LABS: % Basophils 0.4 % (0-2); % Eosinophils 0.5 % (0-6); % Immature Granulocytes 1.4 % (0-0.5); % Lymphocytes 10.9 % (20.5-51.1); % Neutrophils 81.8 % (42.2-75.2); Absolute Basophils 0.1 10^3/uL (0-0.2); Absolute Eosinophils 0.1 10^3/uL (0-0.7); Absolute Immature Granulocytes 0.2 10^3/uL (0-0.05); Absolute Lymphocytes 1.9 10^3/uL (1.2-3.4); Absolute Monocytes 0.9 10^3/uL (0.1-0.6); Absolute Neutrophils 14.5 10^3/uL (1.4-6.5); Hematocrit 34.6 % (37.0-47.0); Hemoglobin 11.6 g/dL (12.0-16.0); Mean Corp Hgb Conc. 33.5 g/dL (33.0-37.0); Mean Corpuscular Hgb 29.6 pg (27.0-31.0); Mean Corpuscular Volume 88.3 fL (81.0-99.0); Nucleated Red Blood Cells % 0 %; Platelet Count 216 10^3/uL (130-400); Red Blood Cell Count 3.92 10^6/uL (4.20-5.40); Red Cell Dist. Width 17.5 % (11.5-14.5); White Blood Cell Count 17.8 10^3/uL (4.8-10.8)
[2024-07-16] MEDS: CALCIUM GLUCONATE 290 MG IV (07:02)
--- NOTE | 2024-07-16 07:47 | W.PN.NEPH.PH ---
Today's Communication / Plan
-
HD tomorrow
Assessment/Plan
-
Assessment:
POssible sepsis
Hypotension
C diff diarrhea
Recent Enterobacter bacteremia/GNR - Panresistant-completed abx on 06/19
Hypotension on midodrine
ESRD on HD-MWF through [facility]
Anemia
h/o GIB
Chronic hypoxic respiratory insufficiency
h/o urinary retention
parox a-fib
hyperlipidemia
Hx c-diff colitis
osteoarthritis
Chronic wounds
Hypoantremia
Plan:
HD tomorrow
keep MAP > 65
wean pressors as allowed
abx per primary team
Patient has decided against surgery
She also told me that she was not going to have dialysis any further. Upon further questioning it appeared that she thought that declining surgery also meant declining dialysis. I clarified that she may continue dialysis if she wishes and that
this was a completely separate decision. She clearly did understand that stopping dialysis meant to from kidney failure. At this time we will plan for dialysis tomorrow unless she confirms that decision with her daughter later today
critical care time 31 minutes
-
-
Date of Service: July 16, 2024
CC / HPI / ROS
-
Chief Complaint:
ESRD
History of Present Illness:
met acidosis improved
Na better 127
on abx for C diff
no fever, WBC down to 17k
on pressors for hypotension
toelrated HD yesterday
critically ill in ICU
Review of Systems:
no cp or sob
feels well rectal tube in, liquid stools
Labs
-
Labs:
WBC 17.8 10^3/uL (4.8-10.8) H 07/16/24 05:21
RBC 3.92 10^6/uL (4.20-5.40) L 07/16/24 05:21
Hgb 11.6 g/dL (12.0-16.0) L 07/16/24 05:21
Hct 34.6 % (37.0-47.0) L 07/16/24 05:21
Plt Count 216 10^3/uL (130-400) D 07/16/24 05:21
Sodium 127 mmol/L (135-145) L 07/16/24 05:21
Potassium 3.3 mmol/L (3.5-5.1) L 07/16/24 05:21
Chloride 91 mmol/L (98-107) L 07/16/24 05:21
Carbon Dioxide 28 mmol/L (22-30) 07/16/24 05:21
BUN 24 mg/dl (7-17) H 07/16/24 05:21
Creatinine 1.8 mg/dL (0.6-1.0) H 07/16/24 05:21
eGFR 29.57 07/16/24 05:21
Glucose 130 mg/dl (70-99) H 07/16/24 05:21
Calcium 6.9 mg/dl (8.4-10.2) L* 07/16/24 05:21
Phosphorus 4.2 mg/dl (2.5-4.5) 07/15/24 05:52
Xgj-N-Luknaxqjcha Pept 590 pg/ml 07/13/24 12:59
Albumin 2.2 g/dl (3.5-5.0) L 07/13/24 11:18
Physical Exam
-
Vital Signs:
Vital Signs
Temp Pulse Resp BP Pulse Ox
97.9 F 77 21 100/56 94
07/16/24 03:46 07/16/24 07:15 07/16/24 07:15 07/16/24 07:00 07/16/24 06:35
Cardiovascular:: Regular rate and rhythm
Respiratory:: Bilateral: CTA
Lung Excursion:: Normal
Abdomen:: Nontender and Soft
Bowel Sounds:: Normal
Extremity Edema:: +1: Bilateral:
[2024-07-16] MEDS: SYMBICORT 160/4.5 MCG INHALER 2 PUFF INH ×2 (07:54→20:22)
[2024-07-16] MEDS: KCL 270 MEQ IV (07:59)
[2024-07-16] MEDS: PROTONIX IV 40 MG IV (07:59)
[2024-07-16] MEDS: DESENEX/MITRAZOL/ZEASORB 1 APPLIC TOPICAL ×3 (08:00→21:38)
[2024-07-16] MEDS: VANCOMYCIN ENEMA 500 MG RECTAL ×4 (08:00→21:38)
--- NOTE | 2024-07-16 08:00 | PTCARENOTE ---
Assumed care of patient at 0645. Assessment completed and documented in shift assessment on worklist.
Patient is AAOX4, pleasant and cooperative. Presently on LA, lungs diminished throughout. SR with prolonged QT on monitor. LUE Midline patent with Levophed infusing 13mcg/min. L Wrist infusing Sodium Bicarbonate at 60mL/hour. Obese abdomen, +BS and
not tender to palpation. Poor appetite, advanced Rectal Trumpet in place draining brown stool. MASD in abdominal folds, breast, groin and buttocks, treated with antifungal powder and moisture barrier.
[2024-07-16] MEDS: PACERONE 200 MG PO (08:01)
[2024-07-16] MEDS: ProAmatine 10 MG PO ×3 (08:01→17:12)
--- NOTE | 2024-07-16 08:27 | W.PN.ID1 ---
Addendum entered and electronically signed by Harmony Glass MD 07/16/24 17:03:
QTc 470
increased ondansetron dose - oral vancomycin a critical therapy
recheck qtc in the am
Original Note:
Date of Service
Date of Service: July 16, 2024
Today's Communication
- continue oral vancomycin 500 mg PO QID, vancomycin enemas and IV metronidazole 500 mg IV Q8 hours
- if not retaining vancomycin enemas then could be stopped
- c/w eravacycline 1 mg/kg iv q12 - salvage therapy
- patient has refused colostomy, if she progresses to colonic rupture, then we have discussed hospice. At the present moment we may be seeing some improvement, though she remains critically ill and at high risk of colonic rupture I do feel it is
reasonable to continue pursuing maximal medical management at this time as per her wishes.
- nausea may relate to eravacycline, metronidazole or both - in this setting would treat side effects as no other viable medical options
- recheck QTc - may increase dose of ondansetron
Assessment / Plan
Fulminant C difficile
Septic Shock - improving
ESRD on HD via HD catheter
- blood cultures x2 - no growth to date
- continue oral vancomycin 500 mg PO QID, vancomycin enemas and IV metronidazole 500 mg IV Q8 hours
- if not retaining vancomycin enemas then could be stopped
- c/w eravacycline 1 mg/kg iv q12 - salvage therapy
- nausea may relate to eravacycline, metronidazole or both - in this setting would treat side effects as no other viable medical options
- recheck QTc - may increase dose of ondansetron
- patient has refused colostomy, if she progresses to colonic rupture, then we have discussed hospice and she would agree with transitioning. At the present moment we may be seeing some improvement, though she remains critically ill and at high
risk of colonic rupture I do feel it is reasonable to continue pursuing maximal medical management at this time as per her wishes.
- I provided the necessary paperwork to daughter to apply for prescription assistance for outpatient oral fecal transplant; inpatient fecal transplant not available at this institution. If pursued, then as patient is on HD will need a script on dc
for 250 mg of polyethylene glycol once as laxative after completion of fidaxomicin/oral vanc prior to the fecal transplant.
Recent colonization with CRE Enterobacter
Resolved HD catheter infection with CRE enterobacter
- follow up blood cultures this visit, previously cleared
Hyponatremia
- management per IM service, improving
Patient is critically ill on pressors with some interval improvement, follow pressor requirements, additional imaging, cbc and physical exam.
Chief Complaint
-: C-diff (fulminant) and Other (septic shock)
Subjective / Review of Systems
afebrile
declining pressor requirements
threw up am vancomycin dose
HD is planned for tomorrow
QTc on the monitor question if prolonged - was 450 yesterday, repeat today
Vital Signs / Physical Exam
Vital Signs
Vital Signs
Temp Pulse Resp BP Pulse Ox
97.5 F 85 15 119/64 94
07/16/24 07:40 07/16/24 08:15 07/16/24 08:15 07/16/24 08:01 07/16/24 08:00
Physical Exam
Constitutional: Acutely Ill and Chronically Ill
Cardiovascular: Regular Rate and S1/S2; Negative Murmur or Rub
Pulmonary: Clear and Symmetric; Negative Wheezes or Rales
Gastrointestinal: Soft, Non Tender, Non Distended, Normal Bowel Sounds and Other (no peritoneal signs)
Skin: Warm and Dry; Negative Rash or Jaundice
Wound: Other (DTIs on the bilateral heels - getting offloading)
Objective Data
Lab Data
Lab Results
07/16/24 05:21
07/16/24 05:21
PT 42.8 Sec (11.4-14.6) H 07/15/24 05:52
INR 4.59 07/15/24 05:52
APTT 45.3 Sec (23.4-35.0) H 07/15/24 05:52
Estimated Creat Clear 28 ml/min 07/16/24 05:21
Lactic Acid 1.3 mmol/L (0.7-2.0) 07/16/24 05:21
Total Bilirubin 0.6 mg/dl (0.2-1.3) 07/13/24 11:18
AST 16 U/L (14-36) 07/13/24 11:18
ALT < 10 U/L (0-35) 07/13/24 11:18
Alkaline Phosphatase 150 U/L (38-126) H 07/13/24 11:18
C-Reactive Protein 200.30 mg/L (0.0-10.00) H 07/13/24 11:18
Most recent labs reviewed.
Micro Results:
07/13/24 15:58 Blood Culture - Preliminary
Blood/Venous No Growth in 48 hours- Final report to follow
07/14/24 12:48 Blood Culture - Preliminary
Blood/Venous No Growth in 24 hours- Final report to follow
07/14/24 02:10 Salmonella/Shigella Culture - Preliminary
Feces/Stool Culture in Progress
Campylobacter Culture - Preliminary
Culture in Progress
Shiga Toxin Test - Pending
07/14/24 06:18 MRSA Screen - Final
Nose Staph aureus MRSA
07/14/24 02:10 C. difficile GDH Antigen & Toxins - Final
Feces/Stool Toxigenic C.difficile Positive
- Final
Negative for Norovirus GI and GII.
Care Review
Plan reviewed with: Nurse
[2024-07-16] MEDS: ROCALTROL 0.25 MCG PO (08:32)
[2024-07-16] MEDS: FIRVANQ PO (10:23)
[2024-07-16] MEDS: XERAVA 257.5 MG IV ×2 (10:23→21:38)
--- NOTE | 2024-07-16 11:02 | W.PN.HOSP.TC ---
Addendum entered and electronically signed by Patricia Hernandez MD 07/16/24 15:16:
I saw and evaluated the patient independently. I reviewed the resident�s note and agree with findings and plan as documented by Dr. Dominguez.
GENERAL: well developed, well nourished, female in no apparent distress--today, seems brighter
HEENT: NC/AT--tunnelled HD cath right SC
HEART: regular rate and rhythm, +S1, +S2
LUNGS : clear to auscultation bilaterally
ABDOM: soft, nontender, nondistended, + bowel sounds
EXT: no cyanosis, clubbing, or edema
NEUROLOGIC: grossly intact
Septic shock (POA) with metabolic acidosis and pressor dependent hypotension-- with watery foul smelling diarrhea likely due to C. diff positivity--was started on Dificid but apprec ID--changed to oral vanco/flagyl--blood culture neg--WBC and
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
survives without surgery, if pt elects for surgery then not needed as likely will be colectomy--asked hospice to weigh in for educational purposes only--no plans to withdraw care at this time....
hyponatremia--sodium 127--getting HD--renal aware
hypokalemia--replete
hypocalcemia--replete
Paroxysmal Afib- Continue Eliquis, may need to hold if surgery a possibility- Cont amiodarone
ESRD on HD- Nephrology following for HD needs- next HD plan Saturday
Asthma- Continue home meds
Anemia, chronic- Stable
Hypomagnesemia, hypokalemia likely due to diarrhea--replete as needed
Code status: DNR
DVT proph: Eliquis
Total Critical Care Time 31 minutes. I was immediately available to the patient and staff. I personally examined, reviewed labs, diagnostic images/reports, interpretations, treatment plans, discussed patient care with other providers and family
or caregivers (if patient is unable to make decisions), entered orders as appropriate and documented the medical record.
Original Note:
Today's Communication/Plan
-
Continue antibiotics
Pedal edema, will hold IV fluids for now
Plan for HD tomorrow, will discuss with nephro and surgery
Replete Ca and K as needed
Assessment / Plan
Assessment / Plan
73 y/o female with h/o ESRD on HD and recent hospitalizations presenting with:
# Septic shock POA, likely 2/2 C. Diff
- CXR negative
- Norovirus neg, stool culture pending
- Leukocytosis, white count downtrending, 17.8 today
- Started at Levophed 4 --> 8 --> 20 -->16 --> 12 mcg now, on vasopressin
- Continue to wean pressors as able
- Lactic acid normal
- Normal bowel sounds, abdomen distended but non tender
- C. Diff positive, Fulminant, second episode
- Abdominal x-ray (07/14): dilated transverse colon to 7.4 cm with wall thickness, no free air.
- Toxic megacolon? Afebrile, hr <120, white count 17, anemia? (chronic)
- Blood Cx no growth after 48 hours
- ID following - continue oral vancomycin 500 QID, vancomycin enema, IV metronidazole 500 Q8hr and eravacycline 75 IV BID
- Colorectal surgery following - discussed treatment options including surgery (i.e.�subtotal colectomy with end ileostomy) and continued nonoperative measures
- Patient and family declined surgery
- Daughter at bedside, asking about hospice, will consult hospice for education
# Hypotension likely volume depleted 2/2 diarrhea and dialysis
- on Levophed, titrate to keep MAP>65
- Continue to monitor bicarb, gentle IVF at 60 ml/hr with added bicarb, pedal edema, will hold IV fluids for now
- Continue midodrine 10 tid
# Hypokalemia
- Replete K as needed
# Hypocalcemia
- Corrected calcium 8.3
- Replete as needed
# Hyponatremia
- Nephrology following
- Sodium level 121-->127 today
# Paroxysmal Afib
- Eliquis held
- Cont amiodarone
# ESRD on HD
- Nephrology following
- HD scheduled for tomorrow
- Patient was confused about dialysis, stated 'she should not do dialysis' based on her conversations with the medical team yesterday
- Will discuss with nephrology and surgery regarding plan for dialysis tomorrow
# Asthma
- PO home meds held
# Anemia, chronic
- Stable
# Hypomagnesemia, hypokalemia likely 2/2 diarrhea
- Repleted as needed
Code status: DNR
DVT prophylaxis: Eliquis
Anticipated Discharge: > 48 hours
Subjective/Interval History
-
Date of Service: July 16, 2024
Objective Data
-
Labs:
Laboratory Results
07/16/24
05:21
WBC 17.8 H
Hgb 11.6 L
Hct 34.6 L
Plt Count 216 D
Sodium 127 L
Potassium 3.3 L
Chloride 91 L
Carbon Dioxide 28
BUN 24 H
Creatinine 1.8 H
Glucose 130 H
Calcium 6.9 L*
Vital Signs:
Vital Signs
Temp Pulse Resp BP Pulse Ox
97.5 F 84 22 87/54 97
07/16/24 07:40 07/16/24 10:30 07/16/24 10:30 07/16/24 10:30 07/16/24 09:45
I&O
07/15/24 07/16/24 07/17/24
06:59 06:59 06:59
Intake Total 787.5 / 787.5 4781.5 / 5180.3 860.1 / 860.1
Output Total 100 / 100 0 / 0
Balance 687.5 / 687.5 4781.5 / 5180.3 860.1 / 860.1
Review of Systems
-
History Source: Patient
Constitutional: Reports No Symptoms
EENT: Reports No Symptoms Reported
Respiratory: Reports No Symptoms
Cardiac: Reports No Symptoms
Abdomen/GI: Reports Diarrhea
Breast: Reports No Symptoms
Genitourinary: Reports No Symptoms
Musculoskeletal: Reports No Symptoms
Skin: Reports No Symptoms
Neuro: Reports No Symptoms
Endocrine: Reports No Symptoms
Hematologic / Lymphatic: Reports No Symptoms
Allergy / Immunology: Reports No Symptoms
Physical Exam
-
General: Well Developed, Well Nourished, No Apparent Distress and Comfortable
HEENT: Normocephalic
Respiratory: Clear to Auscultation
Cardiac: Regular Rhythm and S1/S2
GI: Soft, Nontender, Normal Bowel Sounds and Distended
Genito-urinary: No Costovertebral Tender
Musculoskeletal: No Clubbing, No Cyanosis, Edema, Right Lower Extrem (1+) and Edema, Left Lower Extrem (1+)
Skin: Warm
Neuro: Awake, Alert and Oriented
Hematologic / Lymphatic: No Lymphadenopathy
Psych: Calm
--- NOTE | 2024-07-16 11:59 | W.PN.INTV ---
Addendum entered and electronically signed by Rajesh Luna MD 07/16/24 17:22:
Patient seen and examined independently by myself. Resident note reviewed below. Agree with assessment and plan. Patient feels improved today, less abdominal pain. Denies shortness of breath, chest pain, nausea. She remains on norepinephrine at
12 mcg, off vasopressin.
Physical exam
Chest exam is clear, she is on room air. No murmurs
Abdominal exam soft, nontender
She has trace edema, bilateral lower extremity foot bandages
Data reviewed
White count 17.8, creatinine 1.8, potassium 3.3, lactate normal
A/P
Patient appears to be at least subjectively improved
Norepinephrine requirements are going down which is encouraging.
She received calcium and potassium supplement this morning. No hemodialysis today
Moving forward
Continue with management per colorectal surgery, critical care. Continue with intermittent fluid boluses with attempt to wean off norepinephrine. She is on room air, likely room to go.
She remains on antibiotics for refractory C. difficile colitis, being considered for oral fecal transplant
Patient has ruled out any surgical intervention therefore we will resume anticoagulation, oral Eliquis will be started today
Blood sugars noted, continue with sliding scale insulin
Advance diet per colorectal surgery
The above was reviewed length with critical care nursing, respiratory care, pharmacy, primary service
Also reviewed with daughter at the bedside
TCCT 31 min
Original Note:
Today's Communication / Plan
Recommendations
Resume Eliquis
Replete electrolytes as needed
Continue hemodialysis as scheduled
Family aware of prognosis
Assessment
-
Impression
Patient is a 73-year-old female, past medical history of end-stage renal disease hemodialysis dependent, paroxysmal atrial fibrillation, C. difficile in the past, recently discharged from [facility] on June 22 after receiving
broad-spectrum antibiotics for 2 weeks for hemodialysis catheter related infection. At that time received fluconazole for intertrigo, valacyclovir for shingles, oral vancomycin for C. difficile. Now presented with foul-smelling diarrhea for 2 days
and progressive septic shock including, low blood pressures, elevated WBC count, vasopressor dependence.
Evidence of C. difficile colitis on abdominal x-ray, transverse colon 7.4 cm with the loss of haustrations.
Reason for ICU admission:progressively worsening condition, increased amount of vasopressors, WBC count worsening.
On oral vancomycin, IV metronidazole and IV eravacyclin.
Patient opted for nonoperative management
Assessment
Septic shock secondary to C. difficile colitis
Transverse megacolon secondary to C. difficile?
Paroxysmal atrial fibrillation
End-stage renal disease
Hypokalemia
Hypomagnesemia
Plan
Septic shock secondary to C. difficile colitis
Toxigenic C. difficile positive,MRSA positive
Hypotensive, vasopressor dependence, currently on 20 mcg of Levophed and 10 mg of midodrine 3 times a day-Taper vasopressors as able
Leukocytosis-WBC count trending down-17.8
On oral vancomycin, IV metronidazole, and IV eravacyclin as per ID
Blood culture showed no growth in 48 hours
Patient opted for nonoperative management-ID considering oral fecal transplant-paperwork started as it takes a long time
Continue to monitor blood pressure, TLC count, antibiotics
Transverse megacolon secondary to C. difficile?
Abdominal x-ray done on 07/14/2024 suggest mild gaseous dilatation of transverse colon, with maximum diameter of 7.4 cm. Suggestion of wall thickening involving transverse colon, suggesting colitis
Colorectal surgery consult appreciated-started vancomycin enemas due to suspected adynamic ileus-gave the patient option of subtotal colectomy with ileostomy
Patient declined surgery
Family considering hospice
Paroxysmal atrial fibrillation
On amiodarone 200 mg daily
Eliquis resumed today as patient no longer wants the surgery
End-stage renal disease
On hemodialysis, receives 3 times a week, 3.5-hour session each
Nephro following-consult appreciated
Postdialysis-creatinine 1.8
Next session due tomorrow-patient agreeable to dialysis
Hypokalemia
Replete as needed
Hypomagnesemia
Replete as needed
Hyponatremia
Fluid bolus given yesterday -sodium 127-continue to monitor
Normal serum osmolality
Keep MAP greater than 65
Keep potassium greater than 4 and magnesium greater than 2
Supplemental oxygen as needed
DVT prophylaxis-Eliquis
CODE STATUS-DNR
Family considering hospice
Subjective Dataa
Subjective Data
Date of Service:
Date of Service: July 16, 2024
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
Subjective:
Patient's condition is static
Patient opted for nonoperative management of C. difficile colitis
Had hemodialysis session yesterday, next session due tomorrow on 07/17/2024
On Levophed 20 mcg/min and midodrine 10 mg 3 times a day
Breathing on room air
Awake alert and oriented
Review of Systems
General: Other (Reviewed and negative)
Objective Data
Data Reviewed
Vital Signs / I&O / Oxygen:
Vital Signs
Temp Pulse Resp BP Pulse Ox
96.5 F L 84 22 87/54 97
07/16/24 11:50 07/16/24 10:30 07/16/24 10:30 07/16/24 10:30 07/16/24 09:45
Intake and Output
07/15/24 07/16/24 07/17/24
06:59 06:59 06:59
Intake Total 787.5 / 787.5 4781.5 / 5180.3 976.4 / 976.4
Output Total 100 / 100 0 / 0
Balance 687.5 / 687.5 4781.5 / 5180.3 976.4 / 976.4
SaO2 97
Physical Exam
General: Comfortable and Other (Breathing on room air, conversant and feeling better)
HEENT: Normocephalic and Anicteric
Cardiovascular: S1-S2, Regular Rhythm and Peripheral Edema (Bilateral pedal edema)
Respiratory: Clear and Non-Labored Respirations
GI: Soft, Distended (Abdominal obesity), Non Tender and Normal Bowel Sounds
Neurology: Awake, Alert and No Motor Deficits
Skin: Warm, Dry and Good Color
Labs/Micro/Reports
Lab Data
07/16/24 05:21
07/16/24 05:21
Microbiology
07/14/24 02:10 Feces/Stool Salmonella/Shigella Culture - Preliminary
Culture in Progress
07/14/24 02:10 Feces/Stool Campylobacter Culture - Preliminary
Culture in Progress
07/14/24 02:10 Feces/Stool Shiga Toxin Test - Final
No E. coli Shiga Toxin 1 or 2 detected.
07/13/24 15:58 Blood/Venous Blood Culture - Preliminary
No Growth in 48 hours- Final report to follow
07/14/24 12:48 Blood/Venous Blood Culture - Preliminary
No Growth in 24 hours- Final report to follow
07/14/24 06:18 Nose MRSA Screen - Final
Staph aureus MRSA
07/14/24 02:10 Feces/Stool C. difficile GDH Antigen & Toxins - Final
Toxigenic C.difficile Positive
07/14/24 02:10 Feces/Stool - Final
Negative for Norovirus GI and GII.
--- NOTE | 2024-07-16 12:00 | PTCARENOTE ---
Assessment mostly unchanged besides noted below:
L Wrist IV painful per patient. Removed and unable to place peripheral IV. Notified VAT now with only one IV with Levophed infusing. Patient requiring IV ABX/Electrolyte Repletion/Sodium Bicarb. VAT Team to bedside, placed temporary R Wrist #[id number]
before replacing LUE Midline with LUE DL PICC Line.
PICC confirmed by CXR. Lines re-lined and set up for LUE DL PICC.
--- NOTE | 2024-07-16 12:00 | W.PN.CRS1 ---
Today's Communication / Plan
-
no surgery
continue abx
wbc improving
full liquids
Assessment/Plan
-
73-year-old female with PMH of ESRD (HD MWF), paroxysmal A-fib (on Eliquis, last dose this morning), asthma, recent hospitalization in [place] April 2024 for (groin abscess complicated by C. difficile colitis, sepsis, RENATO requiring HD) and
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 She was found to be positive C.
difficile associated with hypotension. She was started on levo the morning of 07/14 and this increased to 8 mcg by noon, but stabilized. Her WBC was 16.6, bicarb 22. An AXR on 07/14 showed a dilated transverse colon to 7.4 cm, no free air.
WBC: 17.8 from 29.1, afebrile, HR normal
levophed gtt - titrating down, vassopression weaned to off
-Patient not interested in any surgery, will continue to treat with maximal medical measures
-Advance diet to full liquids with Ensure
-Anticoagulation (afib) per primary team. No plans for OR.
-IV abx-vancomycin and Flagyl per ID
-Wean pressors as able
-Other measures per primary team
Subjective Data
Subjective Data
Date of Service: July 16, 2024
Patient states she has no pain. She is having loose stools still. She is hungry and tolerated clears. She denies nausea or vomiting.
Objective Data
-
Vital Signs
Temp Pulse Resp BP Pulse Ox
96.5 F L 84 22 87/54 97
07/16/24 11:50 07/16/24 10:30 07/16/24 10:30 07/16/24 10:30 07/16/24 09:45
Intake & Output
07/15/24 07/16/24 07/17/24
06:59 06:59 06:59
Intake Total 787.5 / 787.5 4781.5 / 5180.3 976.4 / 976.4
Output Total 100 / 100 0 / 0
Balance 687.5 / 687.5 4781.5 / 5180.3 976.4 / 976.4
Intake:
Oral fluids 0 / 0 0 / 0
IV fluids (Total) 687.5 / 687.5 3724.5 / 3833.3 551.4 / 551.4
Levophed 67.5 / 67.5 1748.5 / 1797.3 251.4 / 251.4
Nss 1,000 ml @ 60 mls/hr IV . 620 / 620 480 / 480
[id number] COLE Rx#:[id number]
Sterile Water For Injection 1440 / 1500 300 / 300
1000 ml 1,000 ml @ 60 mls/hr IV
.[id number] COLE with Sodium
Bicarbonate 150 Meq Rx#:
[id number]
Vasopressin 56 / 56
IV piggybacks 100 / 100 1057 / 1347 425.0 / 425.0
Output:
Urine, Griffiths 100 / 100
Urine, Voided 0 / 0 0 / 0
Other:
Number of unmeasured liquid
stools
Rectum 3
Lab Results
07/16/24 05:21
07/16/24 05:21
Physical Exam
-
General: No Acute Distress and AOx3
Abdomen: Soft, Non Distended and Non Tender
Skin: Warm and Dry
[2024-07-16] MEDS: ZOFRAN 4 MG IV (12:45)
[2024-07-16] MEDS: ELIQUIS 5 MG PO ×2 (12:46→21:37)
--- NOTE | 2024-07-16 13:25 | WOUNDNOTE ---
L BREAST FOLD (old zoster scars)
--- NOTE | 2024-07-16 13:25 | WOUNDNOTE ---
R ABDOMINAL FOLD (LOWER OUTER)
--- NOTE | 2024-07-16 13:26 | WOUNDNOTE ---
R BUTTOCKS/THIGH (LATERAL POSTERIOR)
--- NOTE | 2024-07-16 13:27 | WOUNDNOTE ---
HEELS (BLANCHABLE RED/PURPLE)
--- NOTE | 2024-07-16 13:27 | WOUNDNOTE ---
HEELS (BLANCHABLE RED/PURPLE)
--- NOTE | 2024-07-16 13:30 | WOUNDNOTE ---
[facility] RN note: Patient admitted 07/13/24 with diarrhea, hypotension, septic shock likely C diff. Patient declining surgery. Patient on pressors. Patient admitted from [facility].
See H&P for complete history.
PMH: ESRD on HD, a fib, HTN, Shingles, C diff, L hip replacement, L groin abscess s/p I+D.
Wound Location and type/assessment: Patient admitted with: healing stage 2 pressure injury along with MASD L buttocks ulcers. Sacral/buttocks/posterior upper thigh MASD. R lower back with small dermal abrasion. R upper buttocks red ecchymotic
abrasion. R medial 1st MTH slow to libby red. Almost healed L groin wound. Discolored skin from previous Zoster lesions L chest/flank. Blanchable red/purple heels. +LE edema.
Appetite: on clear liquids currently.
Pressure redistribution devices in place: Centrella Max air bed. Patient cannot turn self in bed.
Plan: Assisted SHERRY Monge with turning patient. SHERRY Monge and PCT Shawna providing skin care. Silicone foam maintained on heels. Rectal tube bedside drainage sample port padded with ABD pad. t/c SPD and ordered TruVue lite boots. Discussed
with SHERRY Monge who stated patient is currently bedbound.
Will confirm orders with hospitalist or grinding and polishing laborer.
Care plan to be updated and will follow as needed.
Note to case management of equipment requested for discharge: Air mattress.
[2024-07-16 13:36] LABS: Glucose - Point of Care 130 mg/dl (70-99)
--- NOTE | 2024-07-16 14:50 | CM ---
Patient seen at bedside with physician. Patient family here to discuss home needs and possible hospice. CM will continue to follow for discharge planning needs
Plan; pending
[2024-07-16 17:25] LABS: Glucose - Point of Care 134 mg/dl (70-99)
--- NOTE | 2024-07-16 20:00 | SUR.OPER ---
Received pt resting in bed, AAOx3, without complaints. SR on tele, HR 70-80s. On levophed to maintain MAP>65- see worklist for titrations. +2 UE and hand edema. LUE weeping. Afebrile. On RA, lungs diminished. Spo2 95%- difficulty getting pleth at
times. Rectal trumpet in place for loose stools. Hypoactive bowel sounds. Full liquid diet. Poor appetite. Ate a container of applesauce with HS meds. Anuric. L DL PICC with levophed infusing. MASD in abd/groin/breast folds. Fiber boots in place.
Call cruz in reach. Turning q2
[2024-07-16] MEDS: MELATONIN PO (21:39)
[2024-07-17] VITALS (74 sets, daily range): BP systolic 75–144; BP diastolic 49–105; BMI 33.9
[2024-07-17 00:07] LABS: Glucose - Point of Care 124 mg/dl (70-99)
--- NOTE | 2024-07-17 00:08 | PTCARENOTE ---
Pt. reassessed. When giving vanco enema via rectal trumpet, pt only able to hold it in for a few seconds before it started leaking around trumpet. Pt. without complaints. Resting calmly. Levo at 10mcg.
[2024-07-17] MEDS: FIRVANQ 500 MG PO ×4 (03:06→21:40)
[2024-07-17] MEDS: LEVOPHED 258 MG IV ×3 (03:06→20:15)
--- NOTE | 2024-07-17 03:26 | PTCARENOTE ---
No changes in assessment. Pt. sleeping when undisturbed. Levo remains at 10mcg- switched to double concentrated due to weeping/edema. AM labs drawn.
[2024-07-17 03:38] LABS: Hematocrit 34.5 % (37.0-47.0); Hemoglobin 11.4 g/dL (12.0-16.0); Mean Corpuscular Volume 87.8 fL (81.0-99.0); Mean Platelet Volume 10.4 fL (7.4-10.4); Platelet Count 168 10^3/uL (130-400); Red Blood Cell Count 3.93 10^6/uL (4.20-5.40); Red Cell Dist. Width 17.2 % (11.5-14.5); White Blood Cell Count 14.1 10^3/uL (4.8-10.8)
[2024-07-17 03:57] LABS: ALT (SGPT) < 10 U/L (0-35); AST (SGOT) 12 U/L (14-36); Albumin 1.2 g/dl (3.5-5.0); Alkaline Phosphatase 127 U/L (38-126); Blood Urea Nitrogen 28 mg/dl (7-17); Calcium 7.4 mg/dl (8.4-10.2); Carbon Dioxide 25 mmol/L (22-30); Chloride 92 mmol/L (98-107); Estimated Creatinine Clearance 25 ml/min; Glucose 111 mg/dl (70-99); Magnesium 1.7 mg/dl (1.6-2.3); Sodium 124 mmol/L (135-145); Total Bilirubin 0.6 mg/dl (0.2-1.3); Total Protein 3.1 g/dl (6.3-8.2); eGFR 26.05
[2024-07-17 04:08] LABS: Intact PTH 75.1 pg/ml (13.6-85.8)
[2024-07-17] MEDS: FLAGYL 500 MG 100 IV ×3 (06:04→21:41)
[2024-07-17] MEDS: KCL 100 IV (06:05)
[2024-07-17] MEDS: MAGNESIUM SULFATE 102 GRAMS IV (06:08)
[2024-07-17] MEDS: SYMBICORT 160/4.5 MCG INHALER 2 PUFF INH ×2 (07:27→20:32)
--- NOTE | 2024-07-17 08:53 | W.PN.CRS1 ---
Today's Communication / Plan
-
As below
Assessment/Plan
-
73-year-old female with PMH of ESRD (HD MWF), paroxysmal A-fib (on Eliquis, last dose this morning), asthma, recent hospitalization in [place] April 2024 for (groin abscess complicated by C. difficile colitis, sepsis, RENATO requiring HD) and
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 She was found to be positive C.
difficile associated with hypotension. She was started on levo the morning of 07/14 and this increased to 8 mcg by noon, but stabilized. Her WBC was 16.6, bicarb 22. An AXR on 07/14 showed a dilated transverse colon to 7.4 cm, no free air.
Afebrile, HR WNL, BP low, levo at 13, vaso off
WBC 14.1 from 17.8, Cr 2.0 from 1.8, sodium 124
�Fulminant C. difficile colitis associated with septic shock
�Leukocytosis improved, pressor requirement stable/slightly worse, remaining labs somewhat stable
�Continue PO, IV and SC antibiotics, appreciate ID
�Reviewed treatment options with patient once more; patient confirms that she would not proceed with surgery in the setting of clinical deterioration; would continue end-of-life discussions regarding comfort care if she worsens; right now, she is
stable and she agrees with pursuing full medical management except is currently DNR
� Would encourage n.p.o. and bowel rest, but will defer to primary
�PO intake will increase O2 requirement of bowel/direct blood flow to the bowel; with ongoing pressor requirement, especially levo greater than 10 mcg, this may lead to bowel ischemia and/or poor perfusion to other organs
� As patient has declined surgery, Eliquis has been restarted
� Appreciate nephrology
� Appreciate hospitalist
Colorectal will sign off, please call for any questions or concerns.
Subjective Data
Subjective Data
Date of Service: July 17, 2024
No overnight events. Levophed has been between 10 and 13 mcg.
Has been having intermittent nausea, but denies vomiting.
Has not passed flatus, but having diarrhea. Rectal tube is in place.
Voiding.
Denies any abdominal pain.
Objective Data
-
Vital Signs
Temp Pulse Resp BP Pulse Ox
97.5 F 84 18 86/59 99
07/17/24 08:01 07/17/24 07:30 07/17/24 07:30 07/17/24 06:00 07/17/24 02:30
Intake & Output
07/16/24 07/17/24 07/18/24
06:59 06:59 06:59
Intake Total 4781.5 / 5180.3 3160.7 / 3160.7
Output Total 0 / 0 400 / 400
Balance 4781.5 / 5180.3 2760.7 / 2760.7
Intake:
Oral fluids 0 / 0
IV fluids (Total) 3724.5 / 3833.3 1875.7 / 1875.7
Levophed 1748.5 / 1797.3 1095.7 / 1095.7
Nss 1,000 ml @ 60 mls/hr IV . 480 / 480
[id number] COLE Rx#:[id number]
Sterile Water For Injection 1440 / 1500 780 / 780
1000 ml 1,000 ml @ 60 mls/hr IV
.[id number] COLE with Sodium
Bicarbonate 150 Meq Rx#:
[id number]
Vasopressin 56 / 56
IV piggybacks 1057 / 1347 1125.0 / 1125.0
Fecal management system 160 / 160
irrigation (mL)
Rectum 160 / 160
Output:
Liquid stool amount 400 / 400
Rectum 400 / 400
Urine, Voided 0 / 0
Lab Results
07/17/24 07:00
07/17/24 03:13
Physical Exam
-
General: No Acute Distress and AOx3
HEENT: Grossly Normal
Abdomen: Soft, Non Distended, Non Tender, No Guarding and No Rebound
Skin: Warm and Dry
[2024-07-17] MEDS: ProAmatine 10 MG PO ×3 (09:06→16:22)
[2024-07-17] MEDS: DESENEX/MITRAZOL/ZEASORB 1 APPLIC TOPICAL ×3 (09:06→21:41)
[2024-07-17] MEDS: ELIQUIS 5 MG PO ×2 (09:07→21:40)
[2024-07-17] MEDS: ROCALTROL 0.25 MCG PO (09:07)
[2024-07-17] MEDS: PACERONE 200 MG PO (09:07)
--- NOTE | 2024-07-17 09:13 | W.PN.ID1 ---
Date of Service
Date of Service: July 17, 2024
Today's Communication
- QTc now 560, likely impacted in part by electrolyte derangements from diarrhea and also ondansetron - decreased ondansetron dose and ordered stat mag/phos levels today, repeat mag level in the AM. [facility], would like to see
lytes followed this afternoon and EKG to recheck QTc. For now I have decreased the ondansetron to 4 mcg iv q6 hrs. Oral vanc is the most important drug for beto and unfortunately she vomiting up one dose yesterday. We cant depend on the
metronidazole or eravacycline - they're both adjunctive; MICs have been up for c diff on the metronidazole over the last 7+ years which is why its no longer first line for mild/moderate C difficile- only used for adjunctive for fulminant C diff.
Eravacycline has been studied for fulminant C diff in very small cohorts - I cannot definitely say its an effective therapy . Rectal vanc enemas dont get to the whole colon and have been leaking out with Ms Beto phillips. Reiterated to
nursing staff the primacy of oral vancomycin. I have been clear with patient and her daughter that while we're being as aggressive as possible medically that there is still risk of mortality here particularly if her colon perforates.
Patient is critically ill on pressors with guarded prognosis with some interval improvement, follow pressor requirements, cbc and physical exam.
Assessment / Plan
Fulminant C difficile
Septic Shock - improving
ESRD on HD via HD catheter
- npo for present
- QTc now 560, likely impacted in part by electrolyte derangements from diarrhea and also ondansetron - decreased ondansetron dose and ordered stat mag/phos levels today, repeat mag level in the AM. [facility], would like to see
lytes followed this afternoon and EKG to recheck QTc. For now I have decreased the ondansetron to 4 mcg iv q6 hrs. Oral vanc is the most important drug for beto and unfortunately she vomiting up one dose yesterday. We cant depend on the
metronidazole or eravacycline - they're both adjunctive; MICs have been up for c diff on the metronidazole over the last 7+ years which is why its no longer first line for mild/moderate C difficile- only used for adjunctive for fulminant C diff.
Eravacycline has been studied for fulminant C diff in very small cohorts - I cannot definitely say its an effective therapy . Rectal vanc enemas dont get to the whole colon and have been leaking out with Ms Beto phillips. Reiterated to
nursing staff the primacy of oral vancomycin. I have been clear with patient and her daughter that while we're being as aggressive as possible medically that there is still risk of mortality here particularly if her colon perforates.
- continue oral vancomycin 500 mg PO QID, vancomycin enemas and IV metronidazole 500 mg IV Q8 hours
- c/w eravacycline 1 mg/kg iv q12 - salvage therapy
- nausea may relate to eravacycline, metronidazole or both - in this setting would treat side effects as best we can as no other viable medical options
- patient has refused colostomy, if she progresses to colonic rupture, then we have discussed hospice and she would agree with transitioning. At the present moment we may be seeing some improvement, though she remains critically ill and at high
risk of colonic rupture I do feel it is reasonable to continue pursuing maximal medical management at this time as per her wishes.
- I provided the necessary paperwork to daughter to apply for prescription assistance for outpatient oral fecal transplant; inpatient fecal transplant not available at this institution. If pursued, then as patient is on HD will need a script on dc
for 250 mg of polyethylene glycol once as laxative after completion of fidaxomicin/oral vanc prior to the fecal transplant.
Recent colonization with CRE Enterobacter
Resolved HD catheter infection with CRE enterobacter
- follow up blood cultures this visit, previously cleared, no growth to date
Hyponatremia
- management per IM service, improving
Patient is critically ill on pressors with guarded prognosis with some interval improvement, follow pressor requirements, cbc and physical exam.
Chief Complaint
-: C-diff (fulminant) and Other (septic shock)
Subjective / Review of Systems
afebrile
remains of pressors - doses somewhat lower today
vanc enema leaked out after a few seconds
no abdominal pain
Vital Signs / Physical Exam
Vital Signs
Vital Signs
Temp Pulse Resp BP Pulse Ox
97.5 F 84 18 84/56 99
07/17/24 08:01 07/17/24 07:30 07/17/24 07:30 07/17/24 09:06 07/17/24 02:30
Physical Exam
Constitutional: Acutely Ill and Chronically Ill
Cardiovascular: Regular Rate and S1/S2; Negative Murmur or Rub
Pulmonary: Clear and Symmetric; Negative Wheezes or Rales
Gastrointestinal: Soft, Non Tender, Non Distended and Normal Bowel Sounds
Skin: Warm and Dry; Negative Rash or Jaundice
Objective Data
Lab Data
Lab Results
07/17/24 07:00
07/17/24 03:13
PT 42.8 Sec (11.4-14.6) H 07/15/24 05:52
INR 4.59 07/15/24 05:52
APTT 45.3 Sec (23.4-35.0) H 07/15/24 05:52
Estimated Creat Clear 25 ml/min 07/17/24 03:13
Lactic Acid Cancelled 07/17/24 06:00
Total Bilirubin 0.6 mg/dl (0.2-1.3) 07/17/24 03:13
AST 12 U/L (14-36) L 07/17/24 03:13
ALT < 10 U/L (0-35) 07/17/24 03:13
Alkaline Phosphatase 127 U/L (38-126) H 07/17/24 03:13
C-Reactive Protein 200.30 mg/L (0.0-10.00) H 07/13/24 11:18
Most recent labs reviewed.
Micro Results:
07/14/24 02:10 Salmonella/Shigella Culture - Preliminary
Feces/Stool Culture in Progress
Campylobacter Culture - Preliminary
Culture in Progress
Shiga Toxin Test - Final
No E. coli Shiga Toxin 1 or 2 detected.
07/13/24 15:58 Blood Culture - Preliminary
Blood/Venous No Growth in 72 hours- Final report to follow
07/14/24 12:48 Blood Culture - Preliminary
Blood/Venous No Growth in 48 hours- Final report to follow
07/14/24 06:18 MRSA Screen - Final
Nose Staph aureus MRSA
07/14/24 02:10 C. difficile GDH Antigen & Toxins - Final
Feces/Stool Toxigenic C.difficile Positive
- Final
Negative for Norovirus GI and GII.
Care Review
Plan reviewed with: Physician (Dr Oma monzon and ekg, qtc)
[2024-07-17] MEDS: VANCOMYCIN ENEMA 500 MG RECTAL ×4 (09:39→21:42)
[2024-07-17] MEDS: XERAVA 257.5 MG IV ×2 (09:39→21:41)
--- NOTE | 2024-07-17 09:52 | PTCARENOTE ---
report received, assessments per work list. patient denies pain, monitopr sr with prolonget QT, pac,pvc. lungs with scattered crackles. abdomen distended, active bowel sounds. rectal trumpet draining thick brown green stool. skin/wounds per work
list. right HD cath in place. left picc patent with good blood returns. patient denies nausea. call cruz in reach. ID, loan processing supervisor at bedside. orders received. tolerating rectal vanco enema. daughterat bedside. updated with plan of care
--- NOTE | 2024-07-17 10:40 | W.PN.INTV ---
Addendum entered and electronically signed by Rajesh Luna MD 07/17/24 13:45:
Patient seen and examined independently by myself. Resident note below reviewed. Agree with assessment and plan
Patient subjectively is feeling better today. Less abdominal pain. She still has occasional nausea. She denies shortness of breath. She is on room air. Remains critically ill on norepinephrine at 12 mcg
Physical exam
Chest exam is clear
Abdominal exam is soft, slightly distended but nontender. Not aggressively palpated
Rectal tube remains in place
No murmurs
Generalized edema with occasional weeping
Data reviewed
Albumin 1.2, potassium 3.0
A/P
At this time, patient subjectively is improved
Still on norepinephrine, difficult to wean. I feel that she may benefit from more fluid. Plan for HD today. Plan for not pursuing aggressive fluid removal
Continue to wean pressors as able
Favor intermittent boluses of normal saline as able but at risk for third spacing
Remains on amiodarone, Eliquis
Continue antibiotic therapy for refractory C. difficile colitis. Reviewed with infectious disease
Replete electrolytes
Reviewed with critical care nursing, respiratory care, pharmacy
Reviewed with daughter at bedside
TCCT 31 min
Original Note:
Today's Communication / Plan
Recommendations
Hemodialysis today
Continue to taper vasopressors as able
Consult with nephrology regarding fluid boluses
Replete potassium
Continue to monitor serum creatinine, electrolytes, WBC count, temperature charting
Assessment
-
Impression
Patient is a 73-year-old female, past medical history of end-stage renal disease hemodialysis dependent, paroxysmal atrial fibrillation, C. difficile in the past, recently discharged from [facility] on June 22 after receiving
broad-spectrum antibiotics for 2 weeks for hemodialysis catheter related infection. At that time received fluconazole for intertrigo, valacyclovir for shingles, oral vancomycin for C. difficile. Now presented with foul-smelling diarrhea for 2 days
and progressive septic shock including, low blood pressures, elevated WBC count, vasopressor dependence.
Evidence of C. difficile colitis on abdominal x-ray, transverse colon 7.4 cm with the loss of haustrations.
Reason for ICU admission:progressively worsening condition, increased amount of vasopressors, WBC count worsening.
On oral vancomycin, IV metronidazole and IV eravacyclin.
Patient opted for nonoperative management
Assessment
Septic shock secondary to C. difficile colitis
Transverse megacolon secondary to C. difficile?
Paroxysmal atrial fibrillation
End-stage renal disease
Hypokalemia
Hypomagnesemia
Plan
Septic shock secondary to C. difficile colitis
Toxigenic C. difficile positive,MRSA positive
Hypotensive, vasopressor dependence, currently on 14 mcg of Levophed and 10 mg of midodrine 3 times a day-Taper vasopressors as able
Leukocytosis-WBC count trending down-14.1
On oral vancomycin, IV metronidazole, and IV eravacyclin as per ID-eravacyclin
Blood culture showed no growth in 72 hours
Patient opted for nonoperative management-ID considering oral fecal transplant on outpatient basis-paperwork started as it takes a long time
Continue to monitor blood pressure, TLC count, antibiotics
Transverse megacolon secondary to C. difficile?
Abdominal x-ray done on 07/14/2024 suggest mild gaseous dilatation of transverse colon, with maximum diameter of 7.4 cm. Suggestion of wall thickening involving transverse colon, suggesting colitis
Colorectal surgery consult appreciated-started vancomycin enemas due to suspected adynamic ileus-gave the patient option of subtotal colectomy with ileostomy
Patient declined surgery
Advance diet as per colorectal surgery-currently on full liquid diet
Paroxysmal atrial fibrillation
On amiodarone 200 mg daily,Eliquis resumed
End-stage renal disease
On hemodialysis, receives 3 times a week, 3.5-hour session each
Nephro following-consult appreciated-creatinine 2
Next session due today
Hypokalemia-Replete as needed
Hypomagnesemia-Replete as needed
Hyponatremia
Fluid bolus given yesterday -sodium 127-continue to monitor
Normal serum osmolality
Keep MAP greater than 65
Keep potassium greater than 4 and magnesium greater than 2
Supplemental oxygen as needed
DVT prophylaxis-Eliquis
CODE STATUS-DNR
Family considering hospice
Subjective Dataa
Subjective Data
Date of Service:
Date of Service: July 17, 2024
Chief Complaint: Chief Librarian Circulation Department Follow Up and Pulmonary Follow Up
Subjective:
Patient's condition is static
Clinically,denies any pain but reported feeling a little bit nauseous today
Remained afebrile over last 24 hours
WBC count is trending down
Still on vasopressors, 14 mcg/kg/min Levophed
Breathing on room air
Awake, oriented
Due for dialysis session today
Appears to have third spacing of fluid, decreased albumin, decrease sodium decreased chloride along with weeping of fluid from arms and legs
Review of Systems
General: Other (Reviewed and negative)
Objective Data
Data Reviewed
Vital Signs / I&O / Oxygen:
Vital Signs
Temp Pulse Resp BP Pulse Ox
97.5 F 89 25 84/57 99
07/17/24 08:01 07/17/24 09:45 07/17/24 09:45 07/17/24 09:30 07/17/24 09:45
Intake and Output
07/16/24 07/17/24 07/18/24
06:59 06:59 06:59
Intake Total 4781.5 / 5180.3 3160.7 / 3160.7
Output Total 0 / 0 400 / 400
Balance 4781.5 / 5180.3 2760.7 / 2760.7
SaO2 99
Physical Exam
General: Comfortable and Other (Breathing on room air, conversant, denies any pain, feels okay)
HEENT: Normocephalic and Anicteric
Cardiovascular: S1-S2, Regular Rhythm and Peripheral Edema (Generalized body edema)
Respiratory: Clear and Non-Labored Respirations
GI: Soft, Distended (Abdominal obesity), Non Tender and Normal Bowel Sounds
Neurology: Awake, Alert and No Motor Deficits
Skin: Warm, Dry and Good Color
Labs/Micro/Reports
Lab Data
07/17/24 07:00
07/17/24 03:13
Microbiology
07/14/24 02:10 Feces/Stool Salmonella/Shigella Culture - Preliminary
Culture in Progress
07/14/24 02:10 Feces/Stool Campylobacter Culture - Preliminary
Culture in Progress
07/14/24 02:10 Feces/Stool Shiga Toxin Test - Final
No E. coli Shiga Toxin 1 or 2 detected.
07/13/24 15:58 Blood/Venous Blood Culture - Preliminary
No Growth in 72 hours- Final report to follow
07/14/24 12:48 Blood/Venous Blood Culture - Preliminary
No Growth in 48 hours- Final report to follow
07/14/24 06:18 Nose MRSA Screen - Final
Staph aureus MRSA
07/14/24 02:10 Feces/Stool C. difficile GDH Antigen & Toxins - Final
Toxigenic C.difficile Positive
07/14/24 02:10 Feces/Stool - Final
Negative for Norovirus GI and GII.
--- NOTE | 2024-07-17 11:39 | W.PN.NEPH.PH ---
Today's Communication / Plan
-
HD today
Assessment/Plan
-
Assessment:
POssible sepsis
Hypotension
C diff diarrhea
Recent Enterobacter bacteremia/GNR - Panresistant-completed abx on 06/19
Hypotension on midodrine
ESRD on HD-MWF through [facility]
Anemia
h/o GIB
Chronic hypoxic respiratory insufficiency
h/o urinary retention
parox a-fib
hyperlipidemia
Hx c-diff colitis
osteoarthritis
Chronic wounds
Hypoantremia
Plan:
HD today
keep MAP > 65
wean pressors as allowed
abx per primary team
Patient has decided against surgery
generalized edema could be from severe hypoalbuminemia, ok for alb bolus
hyponatremia is dilutional
hypokalemia-s/p kcl this am
wt is high but UF will be limited with low BPs
pt and family ok for HD today however they are planing to make some decisions
prognosis is poor
d/w daughter
critical care time 31 minutes
-
-
Date of Service: July 17, 2024
CC / HPI / ROS
-
Chief Complaint:
ESRD
History of Present Illness:
met acidosis improved
Na low at 124
on abx for C diff
no fever, WBC down to 14k
on pressors for hypotension
critically ill in ICU
wt is significantly high
Review of Systems:
no cp or sob at rest
feels well rectal tube in, liquid stools
Labs
-
Labs:
WBC Cancelled 07/17/24 07:00
RBC Cancelled 07/17/24 07:00
Hgb Cancelled 07/17/24 07:00
Hct Cancelled 07/17/24 07:00
Plt Count Cancelled 07/17/24 07:00
Sodium 124 mmol/L (135-145) L 07/17/24 03:13
Potassium 3.0 mmol/L (3.5-5.1) L 07/17/24 03:13
Chloride 92 mmol/L (98-107) L 07/17/24 03:13
Carbon Dioxide 25 mmol/L (22-30) 07/17/24 03:13
BUN 28 mg/dl (7-17) H 07/17/24 03:13
Creatinine 2.0 mg/dL (0.6-1.0) H 07/17/24 03:13
eGFR 26.05 07/17/24 03:13
Glucose 111 mg/dl (70-99) H 07/17/24 03:13
Calcium 7.4 mg/dl (8.4-10.2) L 07/17/24 03:13
Jyi-Z-Mxaaeevffon Pept 590 pg/ml 07/13/24 12:59
Albumin 1.2 g/dl (3.5-5.0) L 07/17/24 03:13
Physical Exam
-
Vital Signs:
Vital Signs
Temp Pulse Resp BP Pulse Ox
97.5 F 89 25 84/57 99
07/17/24 08:01 07/17/24 09:45 07/17/24 09:45 07/17/24 09:30 07/17/24 09:45
Cardiovascular:: Regular rate and rhythm
Respiratory:: Bilateral: CTA (anateriorly)
Lung Excursion:: Normal
Abdomen:: Distended, Nontender and Soft
Extremity Edema:: +2: Bilateral:
Griffiths Catheter: No
[2024-07-17 12:15] LABS: Glucose - Point of Care 108 mg/dl (70-99)
[2024-07-17] MEDS: FLAGYL 500 MG IV (12:51)
--- NOTE | 2024-07-17 13:21 | PTCARENOTE ---
reassessed. no changes. HD at bedside
[2024-07-17] MEDS: MANNITOL 25% 12.5 GRAMS IV ×2 (13:44→14:54)
[2024-07-17] MEDS: FLEXBUMIN 25% FOR HEMODIALYSIS 12.5 GRAMS IV ×2 (13:44→14:54)
[2024-07-17 13:58] LABS: Phosphorus 2.7 mg/dl (2.5-4.5)
--- NOTE | 2024-07-17 14:16 | W.PN.HOSP.TC ---
Addendum entered and electronically signed by Roselyn Otto MD 07/17/24 16:19:
will give a bolus of 25% albumin 100 cc to see if this can help improve her BP (pt's albumin noted to be low at 1.2)
Discussed with renal
Addendum entered and electronically signed by Roselyn Otto MD 07/17/24 15:08:
I saw and evaluated the patient. I reviewed the resident�s note and agree with findings and plan as documented in the resident�s note.
A/P:
Septic shock (POA) with metabolic acidosis and pressor dependent hypotension 2/2 C diff colitis
Cont pressor support with Levophed.
Pt was started on Dificid--changed to oral vanco/vancomycin enemas/IV Flagyl and added IV eravacycline per ID
apprec director child
apprec CRS (recommending surgery) but pt declining at this time
cont midodrine
discussing fecal transplant if pt survives without surgery, if pt elects for surgery then not needed as likely will be colectomy--asked hospice to weigh in for educational purposes only--no plans to withdraw care at this time....
hyponatremia--sodium 124 today
HD per renal
hypokalemia--replete
hypocalcemia--replete
Paroxysmal Afib- Continue Eliquis, may need to hold if surgery a possibility- Cont amiodarone
ESRD on HD- Nephrology following for HD needs- next HD plan Saturday
Asthma- Continue home meds
Anemia, chronic- Stable
Hypomagnesemia, hypokalemia likely due to diarrhea--replete as needed
Code status: DNR
DVT proph: Eliquis
DW daughter at bedside
CC Mx time 40 min
Original Note:
Today's Communication/Plan
-
Continue antibiotics per ID
HD due today
Replete electrolytes as needed
Repeat EKG and electrolytes this afternoon
Assessment / Plan
Assessment / Plan
73 y/o female with h/o ESRD on HD and recent hospitalizations presenting with:
# Septic shock POA, likely 2/2 C. Diff
- CXR negative
- Norovirus neg, stool culture pending
- Leukocytosis, white count downtrending, 14.1 today
- Started at Levophed 4 --> 8 --> 20 -->16 --> 12 mcg now, off vasopressin
- Continue to wean pressors as able
- Lactic acid normal
- Normal bowel sounds, abdomen distended but non tender
- C. Diff positive, Fulminant, second episode
- Abdominal x-ray (07/14): dilated transverse colon to 7.4 cm with wall thickness, no free air.
- Toxic megacolon? Afebrile, hr <120, white count 17, anemia? (chronic)
- Blood Cx no growth after 72 hours
- ID following - continue oral vancomycin 500 QID, vancomycin enema, IV metronidazole 500 Q8hr and eravacycline 75 IV BID
- Colorectal surgery following - discussed treatment options including surgery (i.e.�subtotal colectomy with end ileostomy) and continued nonoperative measures
- Patient and family declined surgery
- Daughter at bedside, asking about hospice, will consult hospice for education
# Hypotension likely volume depleted 2/2 diarrhea and dialysis
- on Levophed, titrate to keep MAP>65
- Continue to monitor bicarb, gentle IVF at 60 ml/hr with added bicarb, pedal edema, will hold IV fluids
- Continue midodrine 10 tid
# QTc prolongation
- QTc increased after increasing Zofran to 8, patient was unable to tolerate oral vancomycin yesterday
- Switch to Zofran 4 for now
- Will repeat EKG and electrolytes this afternoon
- Continue to monitor
# Hypokalemia
- Replete K as needed
# Hypoalbuminemia
# Hypocalcemia
- Now resolved
# Hyponatremia
- Nephrology following
# Paroxysmal Afib
- Continue Eliquis
- Cont amiodarone
# ESRD on HD
- Nephrology following
- HD due today, plan for not pursuing aggressive fluid removal
# Asthma
- PO home meds held
# Anemia, chronic
- Stable
# Hypomagnesemia, hypokalemia likely 2/2 diarrhea
- Repleted as needed
Code status: DNR
DVT prophylaxis: Eliquis
Anticipated Discharge: > 48 hours
Subjective/Interval History
-
Date of Service: July 17, 2024
Objective Data
-
Labs:
Laboratory Results
07/17/24
03:13
WBC 14.1 H
Hgb 11.4 L
Hct 34.5 L
Plt Count 168 D
Sodium 124 L
Potassium 3.0 L
Chloride 92 L
Carbon Dioxide 25
BUN 28 H
Creatinine 2.0 H
Glucose 111 H
Calcium 7.4 L
Total Bilirubin 0.6
AST 12 L
ALT < 10
Alkaline Phosphatase 127 H
Vital Signs:
Vital Signs
Temp Pulse Resp BP Pulse Ox
97.7 F 84 21 99/59 93
07/17/24 11:45 07/17/24 13:21 07/17/24 13:21 07/17/24 13:21 07/17/24 12:50
I&O
07/16/24 07/17/24 07/18/24
06:59 06:59 06:59
Intake Total 4781.5 / 5180.3 3160.7 / 3183.2 628.9 / 628.9
Output Total 0 / 0 400 / 400
Balance 4781.5 / 5180.3 2760.7 / 2783.2 628.9 / 628.9
Review of Systems
-
History Source: Patient
Constitutional: Reports Weakness
Respiratory: Reports No Symptoms
Cardiac: Reports No Symptoms
Abdomen/GI: Reports Nausea and Diarrhea
Breast: Reports No Symptoms
Genitourinary: Reports No Symptoms
Musculoskeletal: Reports No Symptoms
Skin: Reports No Symptoms
Neuro: Reports No Symptoms
Endocrine: Reports No Symptoms
Hematologic / Lymphatic: Reports No Symptoms
Allergy / Immunology: Reports No Symptoms
Physical Exam
-
General: Well Developed, Well Nourished and No Apparent Distress
HEENT: Normocephalic
Respiratory: Clear to Auscultation
Cardiac: Regular Rhythm and S1/S2
GI: Soft, Nontender, Normal Bowel Sounds and Distended
Genito-urinary: No Costovertebral Tender
Musculoskeletal: No Clubbing, No Cyanosis and No Edema
Skin: Warm
Neuro: Awake, Alert and Oriented
Hematologic / Lymphatic: No Lymphadenopathy
Psych: Calm
--- NOTE | 2024-07-17 15:31 | HOSPNOTE ---
Will continue to follow for hospice services. I met with patient and daughter earlier in the week and no decisions have been made. We will continue to follow.
--- NOTE | 2024-07-17 15:35 | W.PN.NEPH.HD ---
Assessment
-
Pt seen during HD
remains on pressors, limited UF
severe hypoalbuminemia1.2 likely the cause of gen edema
unlikely NS will help Bps, ok for albumin bolus prn
not much to offer from renal point
d/w ICU
Progress Note - Hemodialysis
-
Date of Service: July 17, 2024
Duration: 30 minutes and 3 hours
Potassium Bath: 3
Calcium Bath: 2.5
Opti-Dialyzer: 160
Ultrafiltration: Other (1lit)
Blood Flow: 400
Dialysate Flow: 600
Heparin: no
EPO: no
--- NOTE | 2024-07-17 16:13 | CM ---
Patient now on HD, remains in ICU. CM will continue to follow for discharge planning needs.
Plan; pending patient medical treatment plan
[2024-07-17] MEDS: ZOFRAN 4 MG IV (17:09)
[2024-07-17] MEDS: FLEXBUMIN 100 IV (17:32)
[2024-07-17 17:40] LABS: Glucose - Point of Care 73 mg/dl (70-99)
--- NOTE | 2024-07-17 18:21 | PTCARENOTE ---
HD completed. levophed titration per work list. patient taking sips clears. albumin infusing. nauseated after po vanco. zofran administered.
--- NOTE | 2024-07-17 20:30 | PTCARENOTE ---
Assumed care of pt at 1900. Pt is A/O x4, pleasant and cooperative with care. Received pt on double concentrated Levophed at 14mcg/min, goal MAP 65. SR on monitor, SpO2 94% on RA. See nursing shift assessment flowsheet for full physical assessment
details.
[2024-07-17 20:38] LABS: Magnesium 1.9 mg/dl (1.6-2.3); Phosphorus 2.1 mg/dl (2.5-4.5); Potassium 3.4 mmol/L (3.5-5.1)
[2024-07-17] MEDS: MELATONIN PO (21:40)
[2024-07-17] MEDS: MAGNESIUM SULFATE 100 IV (22:27)
[2024-07-17] MEDS: KCL 50 IV (22:27)
[2024-07-18] VITALS (95 sets, daily range): BP systolic 77–147; BP diastolic 38–115; PULSE 86; O2SAT 97; BMI 34.1
[2024-07-18 00:06] LABS: Glucose - Point of Care 103 mg/dl (70-99)
--- NOTE | 2024-07-18 00:45 | PTCARENOTE ---
Midnight assessment unchanged. Weaning Levophed as tolerated, see medication titration flowsheet for details. K+ and Mag repleted based off 8pm BMP results.
[2024-07-18] MEDS: FIRVANQ 500 MG PO ×4 (04:56→22:32)
[2024-07-18 05:55] LABS: Blood Urea Nitrogen 14 mg/dl (7-17); Calcium 7.7 mg/dl (8.4-10.2); Carbon Dioxide 26 mmol/L (22-30); Chloride 100 mmol/L (98-107); Estimated Creatinine Clearance 37 ml/min; Glucose 86 mg/dl (70-99); Magnesium 2.3 mg/dl (1.6-2.3); Potassium 3.5 mmol/L (3.5-5.1); Sodium 133 mmol/L (135-145); eGFR 39.97
[2024-07-18] MEDS: FLAGYL 500 MG 100 IV ×3 (06:04→22:32)
[2024-07-18 06:06] LABS: % Basophils 0.3 % (0-2); % Eosinophils 1.1 % (0-6); % Immature Granulocytes 1.1 % (0-0.5); % Monocytes 4.6 % (1.7-9.3); % Neutrophils 74.9 % (42.2-75.2); Absolute Eosinophils 0.1 10^3/uL (0-0.7); Absolute Immature Granulocytes 0.1 10^3/uL (0-0.05); Absolute Lymphocytes 1.6 10^3/uL (1.2-3.4); Absolute Monocytes 0.4 10^3/uL (0.1-0.6); Absolute Neutrophils 6.5 10^3/uL (1.4-6.5); Hematocrit 29.9 % (37.0-47.0); Hemoglobin 9.5 g/dL (12.0-16.0); Mean Corp Hgb Conc. 31.8 g/dL (33.0-37.0); Mean Corpuscular Hgb 28.4 pg (27.0-31.0); Mean Corpuscular Volume 89.3 fL (81.0-99.0); Nucleated Red Blood Cells % 0 %; Red Blood Cell Count 3.35 10^6/uL (4.20-5.40); Red Cell Dist. Width 17.3 % (11.5-14.5); White Blood Cell Count 8.7 10^3/uL (4.8-10.8)
--- NOTE | 2024-07-18 06:37 | PTCARENOTE ---
0400 assessment unchanged. Levo weaned down to 6mcg/min at this point. CHG cloth bath done and linens changed at around 0550.
--- NOTE | 2024-07-18 07:09 | W.PN.INTV ---
Today's Communication / Plan
Recommendations
Tolerating full liquid diet, advance as able per GI
Continue antibiotics per ID, clinically better
Pressor requirement improving. Received albumin yesterday, wonder if this may have helped. Follow
Coagulopathy, thrombocytopenia noted, patient on Eliquis. Hematology evaluation being considered
Assessment
-
Impression
Patient is a 73-year-old female, past medical history of end-stage renal disease hemodialysis dependent, paroxysmal atrial fibrillation, C. difficile in the past, recently discharged from [facility] on June 22 after receiving
broad-spectrum antibiotics for 2 weeks for hemodialysis catheter related infection. At that time received fluconazole for intertrigo, valacyclovir for shingles, oral vancomycin for C. difficile. Now presented with foul-smelling diarrhea for 2 days
and progressive septic shock including, low blood pressures, elevated WBC count, vasopressor dependence.
Evidence of C. difficile colitis on abdominal x-ray, transverse colon 7.4 cm with the loss of haustrations.
Reason for ICU admission:progressively worsening condition, increased amount of vasopressors, WBC count worsening.
On oral vancomycin, IV metronidazole and IV eravacyclin.
Patient opted for nonoperative management
Assessment
Septic shock secondary to C. difficile colitis
Transverse megacolon secondary to C. difficile?
Paroxysmal atrial fibrillation
End-stage renal disease
Hypokalemia
Hypomagnesemia
Thrombocytopenia
Coagulopathy, on Eliquis
Decreased fibrinogen, elevated INR
Plan/recommendations
Septic shock secondary to C. difficile colitis
Toxigenic C. difficile positive,MRSA positive
Hypotensive, vasopressor dependence, currently on 4 mcg of norepinephrine, being weaned. Remains on midodrine
Leukocytosis-WBC count trending down-improved
On oral vancomycin, IV metronidazole, and IV eravacyclin as per ID
Blood culture negative
Patient opted for nonoperative management-ID considering oral fecal transplant on outpatient basis-paperwork started as it takes a long time
Diet advanced, tolerating
Transverse megacolon secondary to C. difficile?
Abdominal x-ray done on 07/14/2024 suggest mild gaseous dilatation of transverse colon, with maximum diameter of 7.4 cm. Suggestion of wall thickening involving transverse colon, suggesting colitis
Colorectal surgery consult appreciated-started vancomycin enemas due to suspected adynamic ileus-gave the patient option of subtotal colectomy with ileostomy
Patient declined surgery
Advance diet as per colorectal surgery-currently on full liquid diet
Continue antibiotics per ID
Paroxysmal atrial fibrillation
On amiodarone 200 mg daily,Eliquis resumed
INR, fibrinogen noted
Primary service to review medications, potential interactions
Given no active bleeding, will hold on vitamin K
Consider hematology evaluation
End-stage renal disease
On hemodialysis, receives 3 times a week, 3.5-hour session each
Nephro following-consult appreciated-creatinine 2
Hypokalemia-Replete as needed
Hypomagnesemia-Replete as needed
Hyponatremia
Fluid bolus given yesterday -sodium 127-continue to monitor
Normal serum osmolality
Keep MAP greater than 65
Keep potassium greater than 4 and magnesium greater than 2
Supplemental oxygen as needed
DVT prophylaxis-Eliquis
CODE STATUS-DNR
Family considering hospice depending on clinical course
Reviewed with patient, multiple daughters at bedside
Reviewed with critical care nursing, primary service
TCCT 31 min
Subjective Dataa
Subjective Data
Date of Service:
Date of Service: July 18, 2024
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
Subjective:
Patient remains critically ill, but improving overall (the best she is felt in a while. Denies nausea, chest pain, abdominal pain. She is tolerating p.o. She denies any bleeding. Multiple family members at the bedside. She remains on
norepinephrine, currently being weaned
Objective Data
Data Reviewed
Vital Signs / I&O / Oxygen:
Vital Signs
Temp Pulse Resp BP Pulse Ox
97.9 F 98 23 123/72 99
07/18/24 03:30 07/18/24 06:00 07/18/24 06:00 07/18/24 06:00 07/18/24 01:45
Intake and Output
07/17/24 07/18/24 07/19/24
06:59 06:59 06:59
Intake Total 3160.7 / 3183.2 1954.2 / 1954.2
Output Total 400 / 400 400 / 400
Balance 2760.7 / 2783.2 1554.2 / 1554.2
SaO2 99
Physical Exam
General: Comfortable and Other (Breathing on room air, conversant, denies any pain, feels okay)
HEENT: Normocephalic and Anicteric
Cardiovascular: S1-S2, Regular Rhythm and Peripheral Edema (Generalized body edema, seems improved)
Respiratory: Clear and Non-Labored Respirations
GI: Soft, Non Distended, Non Tender and Normal Bowel Sounds
Neurology: Awake, Alert and No Motor Deficits
Skin: Warm, Dry and Good Color
Labs/Micro/Reports
Lab Data
07/18/24 05:04
07/18/24 05:04
Microbiology
07/13/24 15:58 Blood/Venous Blood Culture - Preliminary
No Growth in 4 days- Final report to follow
07/14/24 12:48 Blood/Venous Blood Culture - Preliminary
No Growth in 72 hours- Final report to follow
07/14/24 02:10 Feces/Stool Salmonella/Shigella Culture - Final
No Salmonella, Shigella, Aeromonas or Plesiomonas species
isolated.
07/14/24 02:10 Feces/Stool Campylobacter Culture - Final
No Campylobacter species isolated.
07/14/24 02:10 Feces/Stool Shiga Toxin Test - Final
No E. coli Shiga Toxin 1 or 2 detected.
07/14/24 06:18 Nose MRSA Screen - Final
Staph aureus MRSA
--- NOTE | 2024-07-18 07:12 | W.PN.HOSP.TC ---
Addendum entered and electronically signed by Patricia Hernandez MD 07/18/24 15:20:
I saw and evaluated the patient independently. I reviewed the resident�s note and agree with findings and plan as documented by Dr. Dominguez.
GENERAL: well developed, well nourished, female in no apparent distress--today, seems brighter
HEENT: NC/AT--tunnelled HD cath right SC
HEART: regular rate and rhythm, +S1, +S2
LUNGS : clear to auscultation bilaterally
ABDOM: soft, nontender, nondistended, + bowel sounds
EXT: no cyanosis, clubbing, or edema
NEUROLOGIC: grossly intact
Septic shock (POA) with metabolic acidosis and pressor dependent hypotension-- with watery foul smelling diarrhea due to C. diff positivity--was started on Dificid but apprec ID--changed to oral vanco/flagyl--blood culture neg--WBC and pressor
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
weigh in for educational purposes only--no plans to withdraw care at this time....doing better today--weaning pressors
possible DIC?--pt labs consistent with this BUT clinically not--no evidence of bleeding nor clotting--low fibrinogen, high PT/PTT/INR/D-Dimer--pt on eliquis which likely can skew lab values--hold off on vit K for now, consult heme
hyponatremia--sodium 133--getting HD--renal aware
hypokalemia--replete
hypocalcemia--replete
Paroxysmal Afib- Continue Eliquis, may need to hold if surgery a possibility- Cont amiodarone
ESRD on HD- Nephrology following for HD needs- next HD plan Saturday
Asthma- Continue home meds
Anemia, chronic- Stable
Hypomagnesemia, hypokalemia likely due to diarrhea--replete as needed
Code status: DNR
DVT proph: Eliquis
Total Critical Care Time 31 minutes. I was immediately available to the patient and staff. I personally examined, reviewed labs, diagnostic images/reports, interpretations, treatment plans, discussed patient care with other providers and family
or caregivers (if patient is unable to make decisions), entered orders as appropriate and documented the medical record.
Original Note:
Today's Communication/Plan
-
Continue oral and IV antibiotics, stopped Vanco enemas
Continue to monitor blood counts, appreciate heme consult
Wean pressors as able
Advance diet to regular
Replete K and Phos as needed
Continue Albumin
Assessment / Plan
Assessment / Plan
73 y/o female with h/o ESRD on HD and recent hospitalizations presenting with:
# Septic shock POA, likely 2/2 C. Diff
- CXR negative
- Norovirus neg, stool culture negative
- Leukocytosis, white count back to normal, 8.7 today
- Started at Levophed 4 --> 8 --> 20 -->16 --> 12 --> 5 mcg now, off vasopressin
- Continue to wean pressors as able
- Lactic acid normal
- Normal bowel sounds, abdomen distended but non tender
- C. Diff positive, Fulminant, second episode
- Abdominal x-ray (07/14): dilated transverse colon to 7.4 cm with wall thickness, no free air.
- Toxic megacolon? Afebrile, hr <120, white count 17, anemia? (chronic)
- Blood Cx no growth after 72 hours
- ID following - continue oral vancomycin 500 QID, IV metronidazole 500 Q8hr and eravacycline 75 IV BID, vancomycin enema stopped
- Colorectal surgery following peripherally - discussed treatment options including surgery (i.e.�subtotal colectomy with end ileostomy) and continued nonoperative measures
- Patient and family declined surgery
- Daughter at bedside, asking about hospice, hospice spoke with patient and family
- Advance diet to regular
# Hypotension likely volume depleted 2/2 diarrhea and dialysis
- on Levophed, titrate to keep MAP>65, improving
- Continue to monitor bicarb, gentle IVF at 60 ml/hr with added bicarb, pedal edema, will hold IV fluids
- Continue midodrine 10 tid
- Gave Albumin 1 dose yesterday, will give another dose today
# Thrombocytopenia
- Plts dropped from 168 to 99 today, checked coagulopathy panel
- Patient does not have any clinical signs of bleeding
- INR, PTT elevated, fibrinogen low -- unclear if PTT, INR are reliable given patient is on Eliquis
- Unclear etiology, medication related ?
- It does not appear that Eliquis has any interaction with C. Diff meds
- Eravacycline adverse effects include prolonged PTT,
- Will monitor Hgb
- Maintain active Type and Screen
- Heme consult appreciated for Eliquis dose adjustment
# QTc prolongation
- QTc increased after increasing Zofran to 8, patient was unable to tolerate oral vancomycin yesterday
- Continue Zofran 4 for now
- Check repeat EKG and electrolytes
- Continue to monitor
# Hypokalemia and hypophosphatemia
- Replete K and Phos as needed
# Hypoalbuminemia
- Continue Albumin bolus
# Hypocalcemia
- Now resolved
# Hyponatremia
- Nephrology following
- Stable
# Paroxysmal Afib
- Continue Eliquis
- Continue amiodarone
# ESRD on HD
- Nephrology following
- HD due Saturday, plan for not pursuing aggressive fluid removal
# Asthma
- PO home meds held
# Anemia, chronic
- Stable
# Hypomagnesemia, hypokalemia likely 2/2 diarrhea
- Repleted as needed
Code status: DNR
DVT prophylaxis: Eliquis
Anticipated Discharge: > 48 hours
Subjective/Interval History
-
Date of Service: July 18, 2024
Objective Data
-
Labs:
Laboratory Results
07/17/24 07/18/24
20:08 05:04
WBC 8.7
Hgb 9.5 L
Hct 29.9 L
Plt Count Pending
Sodium 133 L D
Potassium 3.4 L 3.5
Chloride 100
Carbon Dioxide 26
BUN 14
Creatinine 1.4 H
Glucose 86
Calcium 7.7 L
Vital Signs:
Vital Signs
Temp Pulse Resp BP Pulse Ox
97.9 F 98 23 123/72 99
07/18/24 03:30 07/18/24 06:00 07/18/24 06:00 07/18/24 06:00 07/18/24 01:45
I&O
07/17/24 07/18/24 07/19/24
06:59 06:59 06:59
Intake Total 3160.7 / 3183.2 1954.2 / 1954.2
Output Total 400 / 400 400 / 400
Balance 2760.7 / 2783.2 1554.2 / 1554.2
Review of Systems
-
History Source: Patient
Constitutional: Reports No Symptoms
EENT: Reports No Symptoms Reported
Respiratory: Reports No Symptoms
Cardiac: Reports No Symptoms
Abdomen/GI: Reports Diarrhea
Breast: Reports No Symptoms
Genitourinary: Reports No Symptoms
Musculoskeletal: Reports Muscle Weakness
Skin: Reports No Symptoms
Neuro: Reports No Symptoms
Endocrine: Reports No Symptoms
Hematologic / Lymphatic: Reports No Symptoms
Allergy / Immunology: Reports No Symptoms
Physical Exam
-
General: Well Developed, Well Nourished, No Apparent Distress and Comfortable
HEENT: Normocephalic
Respiratory: Clear to Auscultation
Cardiac: Regular Rhythm and S1/S2
GI: Soft, Nontender, Normal Bowel Sounds and Distended
Musculoskeletal: No Clubbing, No Cyanosis, Edema, Right Lower Extrem and Edema, Left Lower Extrem
Skin: Warm
Neuro: Awake, Alert and Oriented
Hematologic / Lymphatic: No Lymphadenopathy
Psych: Calm
[2024-07-18] MEDS: SYMBICORT 160/4.5 MCG INHALER 2 PUFF INH ×2 (07:40→19:56)
[2024-07-18 07:44] LABS: Mean Platelet Volume 11.1 fL (7.4-10.4); Platelet Count 99 10^3/uL (130-400)
[2024-07-18] MEDS: POTASSIUM PHOSPHATE 259.0909 MEQ IV (08:18)
[2024-07-18] MEDS: VANCOMYCIN ENEMA 500 MG RECTAL (08:21)
[2024-07-18] MEDS: ProAmatine 10 MG PO ×3 (08:22→16:07)
[2024-07-18] MEDS: PACERONE 200 MG PO (08:22)
[2024-07-18] MEDS: ELIQUIS 5 MG PO ×2 (08:22→19:54)
[2024-07-18] MEDS: DESENEX/MITRAZOL/ZEASORB 1 APPLIC TOPICAL ×3 (08:22→23:41)
[2024-07-18] MEDS: ROCALTROL 0.25 MCG PO (08:22)
--- NOTE | 2024-07-18 08:38 | PTCARENOTE ---
report received, assessments per work list. patient denies pain,nausea. levophed titration per work list. monitor nsr, Kphos repletion initiated. 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 updated. abdomen soft, active bowel sounds. tolerating vanco enemas. requesting
fiber boots remain off. picc patent. call cruz in reach
[2024-07-18] MEDS: XERAVA 257.5 MG IV ×2 (08:59→22:32)
--- NOTE | 2024-07-18 10:12 | W.PN.ID1 ---
Date of Service
Date of Service: July 18, 2024
Today's Communication
- advanced to regular diet, told patient to be judicious and listen to her body, no need to push.
- continue oral vancomycin 500 mg PO QID, IV metronidazole 500 mg IV Q8 hours
- c/w eravacycline 1 mg/kg iv q12 - salvage therapy
- stopped vanc enemas - patient not retaining them and they are uncomfortable for her
Assessment / Plan
Fulminant C difficile - improving
Septic Shock - improving
ESRD on HD via HD catheter
- advanced to regular diet, told patient to be judicious and listen to her body, no need to push.
- recheck QTc this AM
- continue oral vancomycin 500 mg PO QID, IV metronidazole 500 mg IV Q8 hours
- c/w eravacycline 1 mg/kg iv q12 - salvage therapy
- stopped vanc enemas - patient not retaining them and they are uncomfortable for her
- patient has refused colostomy, if she progresses to colonic rupture, then we have discussed hospice and she would agree with transitioning. At the present moment we see further clinical improvement, though she remains critically ill and at some
risk of colonic rupture I do feel it is reasonable to continue pursuing maximal medical management particularly given notable improvement.
- I provided the necessary paperwork to daughter to apply for prescription assistance for outpatient oral fecal transplant which I feel will be important for her; inpatient fecal transplant not available at this institution. If pursued, then as
patient is on HD will need a script on dc for 250 mg of polyethylene glycol once as laxative after completion of fidaxomicin/oral vanc prior to the fecal transplant.
Recent colonization with CRE Enterobacter
Resolved HD catheter infection with CRE enterobacter
- follow up blood cultures this visit, previously cleared, no growth to date
Hyponatremia
- management per IM service, improving
Patient is critically ill on pressors with further interval improvement, follow pressor requirements, cbc and physical exam.
Chief Complaint
-: C-diff (fulminant) and Other (septic shock)
Subjective / Review of Systems
remains afebrile, intermittent, mild hypothermia noted
pressors notably lower
had albumin yesterday
leukocytosis and L shift resolved!
bowel movements now documented as loose but still has rectal tube?
Vital Signs / Physical Exam
Vital Signs
Vital Signs
Temp Pulse Resp BP Pulse Ox
97.6 F 85 19 100/56 100
07/18/24 07:45 07/18/24 09:15 07/18/24 09:15 07/18/24 09:15 07/18/24 09:00
Physical Exam
Constitutional: Chronically Ill and Non-toxic
Cardiovascular: Regular Rate and S1/S2; Negative Murmur or Rub
Pulmonary: Clear and Symmetric; Negative Wheezes or Rales
Gastrointestinal: Soft, Non Tender, Non Distended and Other (mildly hyperactive BS)
Skin: Warm and Dry; Negative Rash or Jaundice
Neurological: Awake and Oriented
Lines: Other (rectal tube in place with minimal liquid stool)
Objective Data
Lab Data
Lab Results
07/18/24 05:04
07/18/24 05:04
PT 42.8 Sec (11.4-14.6) H 07/15/24 05:52
INR 4.59 07/15/24 05:52
APTT 45.3 Sec (23.4-35.0) H 07/15/24 05:52
Estimated Creat Clear 37 ml/min 07/18/24 05:04
Lactic Acid Cancelled 07/17/24 06:00
Total Bilirubin 0.6 mg/dl (0.2-1.3) 07/17/24 03:13
AST 12 U/L (14-36) L 07/17/24 03:13
ALT < 10 U/L (0-35) 07/17/24 03:13
Alkaline Phosphatase 127 U/L (38-126) H 07/17/24 03:13
C-Reactive Protein 200.30 mg/L (0.0-10.00) H 07/13/24 11:18
Most recent labs reviewed.
Micro Results:
07/13/24 15:58 Blood Culture - Preliminary
Blood/Venous No Growth in 4 days- Final report to follow
07/14/24 12:48 Blood Culture - Preliminary
Blood/Venous No Growth in 72 hours- Final report to follow
07/14/24 02:10 Salmonella/Shigella Culture - Final
Feces/Stool No Salmonella, Shigella, Aeromonas or Plesiomonas species
isolated.
Campylobacter Culture - Final
No Campylobacter species isolated.
Shiga Toxin Test - Final
No E. coli Shiga Toxin 1 or 2 detected.
07/14/24 06:18 MRSA Screen - Final
Nose Staph aureus MRSA
07/14/24 02:10 C. difficile GDH Antigen & Toxins - Final
Feces/Stool Toxigenic C.difficile Positive
- Final
Negative for Norovirus GI and GII.
[2024-07-18 11:34] LABS: APTT 46.8 Sec (23.4-35.0); Fibrinogen 163 MG/DL (199-459); PT 61.1 Sec (11.4-14.6)
[2024-07-18 11:36] LABS: INR 7.34
[2024-07-18 11:37] LABS: D-Dimer 1.58 ug/mlFEU (0.00-0.50)
[2024-07-18 11:54] LABS: Glucose - Point of Care 73 mg/dl (70-99)
--- NOTE | 2024-07-18 11:57 | W.PN.NEPH.PH ---
Today's Communication / Plan
-
alb bolus prn
Assessment/Plan
-
Assessment:
POssible sepsis
Hypotension
C diff diarrhea
Recent Enterobacter bacteremia/GNR - Panresistant-completed abx on 06/19
Hypotension on midodrine
ESRD on HD-MWF through [facility]
Anemia
h/o GIB
Chronic hypoxic respiratory insufficiency
h/o urinary retention
parox a-fib
hyperlipidemia
Hx c-diff colitis
osteoarthritis
Chronic wounds
Hypoantremia
Plan:
wean pressors as able to keep MAP > 65
abx per ID
Patient has decided against surgery
generalized edema could be from severe hypoalbuminemia, ok for alb bolus
hyponatremia is dilutional
hypokalemia-s/p neurtaphos this am
wt is up
prognosis is poor
d/w nursing
critical care time 31 minutes
-
-
Date of Service: July 18, 2024
CC / HPI / ROS
-
Chief Complaint:
ESRD
History of Present Illness:
met acidosis improved
Na better at 133
on abx for C diff
no fever, WBC down to 8.7k
on pressors for hypotension-weaning
critically ill in ICU
wt is significantly high
tolerated HD 07/17
Review of Systems:
no cp or sob at rest
feels well rectal tube in, soft stools
Labs
-
Labs:
WBC 8.7 10^3/uL (4.8-10.8) 07/18/24 05:04
RBC 3.35 10^6/uL (4.20-5.40) L 07/18/24 05:04
Hgb 9.5 g/dL (12.0-16.0) L 07/18/24 05:04
Hct 29.9 % (37.0-47.0) L 07/18/24 05:04
Plt Count 99 10^3/uL (130-400) L D 07/18/24 05:04
Sodium 133 mmol/L (135-145) L D 07/18/24 05:04
Potassium 3.5 mmol/L (3.5-5.1) 07/18/24 05:04
Chloride 100 mmol/L (98-107) 07/18/24 05:04
Carbon Dioxide 26 mmol/L (22-30) 07/18/24 05:04
BUN 14 mg/dl (7-17) 07/18/24 05:04
Creatinine 1.4 mg/dL (0.6-1.0) H 07/18/24 05:04
eGFR 39.97 07/18/24 05:04
Glucose 86 mg/dl (70-99) 07/18/24 05:04
Calcium 7.7 mg/dl (8.4-10.2) L 07/18/24 05:04
Phosphorus 2.1 mg/dl (2.5-4.5) L 07/17/24 20:08
Dmp-Y-Xblttjyblpp Pept 590 pg/ml 07/13/24 12:59
Albumin 1.2 g/dl (3.5-5.0) L 07/17/24 03:13
Physical Exam
-
Vital Signs:
Vital Signs
Temp Pulse Resp BP Pulse Ox
97.6 F 86 19 90/62 100
07/18/24 07:45 07/18/24 11:11 07/18/24 09:15 07/18/24 11:11 07/18/24 09:00
Cardiovascular:: Regular rate and rhythm
Respiratory:: Bilateral: CTA (anteriorly)
Lung Excursion:: Normal
Abdomen:: Distended, Nontender and Soft
Extremity Edema:: +3: Bilateral:
Griffiths Catheter: No
--- NOTE | 2024-07-18 12:20 | PTCARENOTE ---
patient dangled at bedside with assist of 2, able to hold self upright, however became dizzy and diaphoretic. blood pressures remained stable during activity. critical labs resulted. reported to hospitalist and resident by tiger text, orders received
[2024-07-18] MEDS: LEVOPHED 258 MG IV (12:22)
[2024-07-18] MEDS: FLEXBUMIN 100 IV (12:47)
--- NOTE | 2024-07-18 16:17 | PTCARENOTE ---
patient reassessed. Levophed per work list. poor po intake. call cruz in reach
[2024-07-18 17:22] LABS: Glucose - Point of Care 76 mg/dl (70-99)
--- NOTE | 2024-07-18 20:13 | PTCARENOTE ---
Assumed care of pt at 1900. Pt is A/O x4, pleasant and cooperative with care. Pt is drowsy but easily arouses to voice. No c/o pain. Received pt on double concentrated Levophed at 2mcg/min infusing thru LUE PICC. SR 70s on monitor, SpO2 94-96% on
RA. See nursing shift assessment flowsheet for full physical assessment details. Call cruz and personal items within reach.
[2024-07-18] MEDS: MELATONIN PO (23:41)
[2024-07-19] VITALS (93 sets, daily range): BP systolic 74–118; BP diastolic 46–72; BMI 34.5
--- NOTE | 2024-07-19 03:25 | PTCARENOTE ---
Midnight assessment unchanged. Remains on Levophed, titrated up slightly to maintain MAP >65 (see med titration flowsheet for details). Pt has been sleeping most of the shift so far.
[2024-07-19 05:06] LABS: % Basophils 0.3 % (0-2); % Eosinophils 0.8 % (0-6); % Immature Granulocytes 1.3 % (0-0.5); % Lymphocytes 13.3 % (20.5-51.1); % Monocytes 3.8 % (1.7-9.3); % Neutrophils 80.5 % (42.2-75.2); Absolute Eosinophils 0.1 10^3/uL (0-0.7); Absolute Immature Granulocytes 0.2 10^3/uL (0-0.05); Absolute Lymphocytes 1.6 10^3/uL (1.2-3.4); Absolute Monocytes 0.5 10^3/uL (0.1-0.6); Absolute Neutrophils 9.6 10^3/uL (1.4-6.5); Hematocrit 30.9 % (37.0-47.0); Hemoglobin 9.7 g/dL (12.0-16.0); Mean Corp Hgb Conc. 31.4 g/dL (33.0-37.0); Mean Corpuscular Hgb 28.8 pg (27.0-31.0); Mean Corpuscular Volume 91.7 fL (81.0-99.0); Mean Platelet Volume 11.3 fL (7.4-10.4); Nucleated Red Blood Cells % 0 %; Platelet Count 68 10^3/uL (130-400); Red Blood Cell Count 3.37 10^6/uL (4.20-5.40); Red Cell Dist. Width 17.5 % (11.5-14.5); White Blood Cell Count 11.9 10^3/uL (4.8-10.8)
[2024-07-19 05:19] LABS: Blood Urea Nitrogen 16 mg/dl (7-17); Calcium 7.9 mg/dl (8.4-10.2); Carbon Dioxide 23 mmol/L (22-30); Chloride 101 mmol/L (98-107); Estimated Creatinine Clearance 32 ml/min; Glucose 73 mg/dl (70-99); Potassium 3.8 mmol/L (3.5-5.1); Sodium 133 mmol/L (135-145); eGFR 34.05
[2024-07-19] MEDS: FIRVANQ 500 MG PO ×4 (05:28→21:50)
[2024-07-19] MEDS: FLAGYL 500 MG 100 IV ×3 (05:28→21:50)
--- NOTE | 2024-07-19 06:35 | PTCARENOTE ---
0400 assessment unchanged. Remains on Levo, has been titrated up, see med titration flowsheet. CHG cloth bath done and linens changed around 0515. Rectal trumpet removed d/t formed stool around rectum and tube was no longer draining well despite
being flushed.
--- NOTE | 2024-07-19 07:17 | W.PN.INTV ---
Today's Communication / Plan
Recommendations
Continue with attempts to wean pressors
Albumin as needed, this will be deferred to nephrology/primary service
Eliquis being held, vitamin K, hematology following
Bloody bowel movement this morning noted, patient is without significant change in symptoms
HD per nephrology
Assessment
-
Impression
Patient is a 73-year-old female, past medical history of end-stage renal disease hemodialysis dependent, paroxysmal atrial fibrillation, C. difficile in the past, recently discharged from [facility] on June 22 after receiving
broad-spectrum antibiotics for 2 weeks for hemodialysis catheter related infection. At that time received fluconazole for intertrigo, valacyclovir for shingles, oral vancomycin for C. difficile. Now presented with foul-smelling diarrhea for 2 days
and progressive septic shock including, low blood pressures, elevated WBC count, vasopressor dependence.
Evidence of C. difficile colitis on abdominal x-ray, transverse colon 7.4 cm with the loss of haustrations.
Reason for ICU admission:progressively worsening condition, increased amount of vasopressors, WBC count worsening.
On oral vancomycin, IV metronidazole and IV eravacyclin.
Patient opted for nonoperative management
Assessment
Septic shock secondary to C. difficile colitis
Transverse megacolon secondary to C. difficile?
Paroxysmal atrial fibrillation
End-stage renal disease
Hypokalemia
Hypomagnesemia
Thrombocytopenia
Coagulopathy, on Eliquis
Decreased fibrinogen, elevated INR
Plan/recommendations
Septic shock secondary to C. difficile colitis
Toxigenic C. difficile positive,MRSA positive
Hypotensive, vasopressor dependence, currently on 4 mcg of norepinephrine, remains on midodrine
Leukocytosis-WBC count trending down-improved
On oral vancomycin, IV metronidazole, and IV eravacyclin as per ID (salvage therapy)
Blood culture negative
Patient opted for nonoperative management-ID considering oral fecal transplant on outpatient basis-paperwork started as it takes a long time
Diet advanced, tolerating
Transverse megacolon secondary to C. difficile?
Abdominal x-ray done on 07/14/2024 suggest mild gaseous dilatation of transverse colon, with maximum diameter of 7.4 cm. Suggestion of wall thickening involving transverse colon, suggesting colitis
Colorectal surgery consult appreciated-started vancomycin enemas due to suspected adynamic ileus-gave the patient option of subtotal colectomy with ileostomy
Patient declined surgery
Advance diet as per colorectal surgery-currently on full liquid diet
Continue antibiotics per ID
Paroxysmal atrial fibrillation
On amiodarone 200 mg daily, Eliquis was resumed
INR, fibrinogen noted
Primary service to review medications, potential interactions
Given bloody bowel movement this morning, has been given 1 dose of vitamin K, Eliquis now being held
INR greater than 8, platelets 68, fibrinogen 168
Hematology following
Reviewed at length with patient and family members pathophysiology of possible DIC
End-stage renal disease
On hemodialysis, receives 3 times a week, 3.5-hour session each
Nephro following
Hypokalemia-Replete as needed
Hypomagnesemia-Replete as needed
Hyponatremia
Fluid bolus given yesterday -sodium 127-continue to monitor
Normal serum osmolality
Keep MAP greater than 65
Keep potassium greater than 4 and magnesium greater than 2
Supplemental oxygen as needed
DVT prophylaxis-Eliquis
CODE STATUS-DNR
Family considering hospice depending on clinical course
Reviewed with patient, multiple daughters at bedside
Reviewed with critical care nursing, primary service
Reviewed with patient, daughter and multiple family murmurs at bedside 07/19, all questions answered
TCCT 31 min
Subjective Dataa
Subjective Data
Date of Service:
Date of Service: July 19, 2024
Chief Complaint: Comber Operator Follow Up and Pulmonary Follow Up
Subjective:
Patient not feeling as well as she was yesterday. Had bloody bowel movement earlier today, with mucousy clots. Denies nausea, chest pain, shortness of breath. On room air. Multiple family members at bedside. Platelets continue to decrease.
Fibrinogen is low. INR greater than 8
Objective Data
Data Reviewed
Vital Signs / I&O / Oxygen:
Vital Signs
Temp Pulse Resp BP Pulse Ox
97.9 F 79 20 111/62 94
07/19/24 04:53 07/19/24 06:30 07/19/24 06:30 07/19/24 06:30 07/19/24 06:30
Intake and Output
07/18/24 07/19/24 07/20/24
06:59 06:59 06:59
Intake Total 1954.2 / 1965.5 961.8 / 961.8
Output Total 400 / 400 200 / 200
Balance 1554.2 / 1565.5 761.8 / 761.8
SaO2 94
Physical Exam
General: Comfortable and Other (Breathing on room air, conversant, denies any pain, feels okay)
HEENT: Normocephalic and Anicteric
Cardiovascular: S1-S2, Regular Rhythm and Peripheral Edema (Generalized body edema, seems improved)
Respiratory: Clear and Non-Labored Respirations
GI: Soft, Non Distended, Non Tender and Normal Bowel Sounds
Neurology: Awake, Alert and No Motor Deficits
Skin: Warm, Dry and Good Color
Labs/Micro/Reports
Lab Data
07/19/24 04:44
07/19/24 04:44
Laboratory Results
07/18/24
11:00
PT 61.1 H
INR 7.34 H* D
APTT 46.8 H
Microbiology
07/13/24 15:58 Blood/Venous Blood Culture - Final
No Growth - Final Report
07/14/24 12:48 Blood/Venous Blood Culture - Preliminary
No Growth in 4 days- Final report to follow
07/14/24 02:10 Feces/Stool Salmonella/Shigella Culture - Final
No Salmonella, Shigella, Aeromonas or Plesiomonas species
isolated.
07/14/24 02:10 Feces/Stool Campylobacter Culture - Final
No Campylobacter species isolated.
07/14/24 02:10 Feces/Stool Shiga Toxin Test - Final
No E. coli Shiga Toxin 1 or 2 detected.
[2024-07-19 07:20] LABS: APTT 48.7 Sec (23.4-35.0); PT 65.8 Sec (11.4-14.6)
[2024-07-19 07:28] LABS: INR > 8.0
[2024-07-19] MEDS: SYMBICORT 160/4.5 MCG INHALER 2 PUFF INH ×2 (07:50→20:22)
[2024-07-19 08:10] LABS: Glucose - Point of Care 72 mg/dl (70-99)
[2024-07-19] MEDS: DESENEX/MITRAZOL/ZEASORB 1 APPLIC TOPICAL ×3 (08:52→21:51)
[2024-07-19] MEDS: ROCALTROL 0.25 MCG PO (08:53)
[2024-07-19] MEDS: ProAmatine 10 MG PO ×3 (08:53→16:13)
[2024-07-19] MEDS: PACERONE 200 MG PO (08:53)
[2024-07-19] MEDS: ELIQUIS 5 MG PO (08:53)
--- NOTE | 2024-07-19 09:40 | W.PN.ID1 ---
Addendum entered and electronically signed by Harmony Glass MD 07/19/24 12:09:
GI bleeding noted this afternoon - management per hospitalist/cc teams
Original Note:
Date of Service
Date of Service: July 19, 2024
Today's Communication
no abdominal pain of peritoneal signs
continue present management
Assessment / Plan
Fulminant C difficile - overall improving
Septic Shock - overall improving
ESRD on HD via HD catheter
- continue oral vancomycin 500 mg PO QID, IV metronidazole 500 mg IV Q8 hours
- c/w eravacycline 1 mg/kg iv q12 - salvage therapy
- patient has refused colostomy, if she progresses to colonic rupture, then we have discussed hospice and she would agree with transitioning. At the present moment we see overall clinical improvement, though she remains critically ill and at some
risk of colonic rupture I do feel it is reasonable to continue pursuing maximal medical management particularly given notable improvement.
- I provided the necessary paperwork to daughter to apply for prescription assistance for outpatient oral fecal transplant which I feel will be important for her; inpatient fecal transplant not available at this institution. If pursued, then as
patient is on HD will need a script on dc for 250 mg of polyethylene glycol once as laxative after completion of fidaxomicin/oral vanc prior to the fecal transplant.
Recent colonization with CRE Enterobacter
Resolved HD catheter infection with CRE enterobacter
- follow up blood cultures this visit, previously cleared, no growth to date
Hyponatremia
- management per IM service, improving
Coagulopathy management per intensivisty/hematology
Patient is critically ill on pressors with overall improvement, follow pressor requirements, cbc and physical exam.
Chief Complaint
-: C-diff (fulminant) and Other (septic shock)
Subjective / Review of Systems
afebrile
norepi as low at 2 mcg yesterday, increased to 7 mcg/min overnight
having formed stool this AM and rectal tube removed
INR >8 - critical value - on eliquis
stool was positive for occult blood - not surprising with c difficile
lines functional - nontender
Vital Signs / Physical Exam
Vital Signs
Vital Signs
Temp Pulse Resp BP Pulse Ox
97.9 F 87 17 102/50 98
07/19/24 07:23 07/19/24 08:53 07/19/24 07:54 07/19/24 08:53 07/19/24 07:54
Physical Exam
Constitutional: No Acute Distress and Chronically Ill
Cardiovascular: Regular Rate and S1/S2; Negative Murmur or Rub
Pulmonary: Clear and Symmetric; Negative Wheezes or Rales
Gastrointestinal: Soft, Non Tender, Non Distended, Normal Bowel Sounds and Other (no peritoneal signs)
Skin: Warm and Dry; Negative Rash or Jaundice
Physical Exam:
lines functional - nontender
Objective Data
Lab Data
Lab Results
07/19/24 04:44
07/19/24 04:44
PT 65.8 Sec (11.4-14.6) H 07/19/24 04:45
INR > 8.0 H* 07/19/24 04:45
APTT 48.7 Sec (23.4-35.0) H 07/19/24 04:45
Estimated Creat Clear 32 ml/min 07/19/24 04:44
Lactic Acid Cancelled 07/17/24 06:00
Total Bilirubin 0.6 mg/dl (0.2-1.3) 07/17/24 03:13
AST 12 U/L (14-36) L 07/17/24 03:13
ALT < 10 U/L (0-35) 07/17/24 03:13
Alkaline Phosphatase 127 U/L (38-126) H 07/17/24 03:13
C-Reactive Protein 200.30 mg/L (0.0-10.00) H 07/13/24 11:18
Most recent labs reviewed.
QTc normalized
Micro Results:
07/13/24 15:58 Blood Culture - Final
Blood/Venous No Growth - Final Report
07/14/24 12:48 Blood Culture - Preliminary
Blood/Venous No Growth in 4 days- Final report to follow
07/14/24 02:10 Salmonella/Shigella Culture - Final
Feces/Stool No Salmonella, Shigella, Aeromonas or Plesiomonas species
isolated.
Campylobacter Culture - Final
No Campylobacter species isolated.
Shiga Toxin Test - Final
No E. coli Shiga Toxin 1 or 2 detected.
07/14/24 06:18 MRSA Screen - Final
Nose Staph aureus MRSA
07/14/24 02:10 C. difficile GDH Antigen & Toxins - Final
Feces/Stool Toxigenic C.difficile Positive
- Final
Negative for Norovirus GI and GII.
Care Review
Plan reviewed with: Nurse (no GI bleeding witnessed)
--- NOTE | 2024-07-19 10:05 | PTCARENOTE ---
report received assessments per work list. patient denies pain, but mildly anxious. did not sleep well last night. support given. incontinent soft brown yellow stool. heme positive. hospitalist team and resident updated with am critical labs and
heme positive stools. poor oral intake. levophed continues for orders
[2024-07-19] MEDS: XERAVA 257.5 MG IV ×2 (10:10→21:50)
--- NOTE | 2024-07-19 10:50 | W.PN.NEPH.PH ---
Today's Communication / Plan
-
HD tomorrow
Assessment/Plan
-
Assessment:
POssible sepsis
Hypotension
C diff diarrhea
Recent Enterobacter bacteremia/GNR - Panresistant-completed abx on 06/19
Hypotension on midodrine
ESRD on HD-MWF through [facility]
Anemia
h/o GIB
Chronic hypoxic respiratory insufficiency
h/o urinary retention
parox a-fib
hyperlipidemia
Hx c-diff colitis
osteoarthritis
Chronic wounds
Hypoantremia
Plan:
wean pressors as able to keep MAP > 65
abx per ID
Patient has decided against surgery, hopefully she is improving clinically
generalized edema could be from severe hypoalbuminemia, ok for alb bolus
hyponatremia is dilutional
wt is up, UF as tolerates in HD tomorrow
coagulopathy-heme follows
half-way prognosis is poor
d/w nursing
critical care time 31 minutes
-
-
Date of Service: July 19, 2024
CC / HPI / ROS
-
Chief Complaint:
ESRD
History of Present Illness:
Na better at 133
on abx for C diff
no fever, plt down 68, INR 8
on pressors for hypotension
critically ill in ICU
wt is significantly high
tolerated HD 07/17
Review of Systems:
no cp or sob at rest
soft stools
Labs
-
Labs:
WBC 11.9 10^3/uL (4.8-10.8) H 07/19/24 04:44
RBC 3.37 10^6/uL (4.20-5.40) L 07/19/24 04:44
Hgb 9.7 g/dL (12.0-16.0) L 07/19/24 04:44
Hct 30.9 % (37.0-47.0) L 07/19/24 04:44
Plt Count 68 10^3/uL (130-400) L D 07/19/24 04:44
Sodium 133 mmol/L (135-145) L 07/19/24 04:44
Potassium 3.8 mmol/L (3.5-5.1) 07/19/24 04:44
Chloride 101 mmol/L (98-107) 07/19/24 04:44
Carbon Dioxide 23 mmol/L (22-30) 07/19/24 04:44
BUN 16 mg/dl (7-17) 07/19/24 04:44
Creatinine 1.6 mg/dL (0.6-1.0) H 07/19/24 04:44
eGFR 34.05 07/19/24 04:44
Glucose 73 mg/dl (70-99) 07/19/24 04:44
Calcium 7.9 mg/dl (8.4-10.2) L 07/19/24 04:44
Phosphorus 4.0 mg/dl (2.5-4.5) 07/19/24 04:44
Wed-D-Dggyqkutxsp Pept 590 pg/ml 07/13/24 12:59
Albumin 2.3 g/dl (3.5-5.0) L 07/19/24 11:18
Physical Exam
-
Vital Signs:
Vital Signs
Temp Pulse Resp BP Pulse Ox
98 F 101 19 74/52 95
07/19/24 12:30 07/19/24 13:32 07/19/24 13:32 07/19/24 13:30 07/19/24 13:32
Cardiovascular:: Regular rate and rhythm
Respiratory:: Bilateral: CTA (anteriorly)
Lung Excursion:: Normal
Abdomen:: Distended, Nontender and Soft
Extremity Edema:: +3: Bilateral:
Griffiths Catheter: No
[2024-07-19 11:21] LABS: ALT (SGPT) 23 U/L (0-35); AST (SGOT) 57 U/L (14-36); Alkaline Phosphatase 243 U/L (38-126); Direct Bilirubin 0.9 mg/dl (0.0-0.4); Total Bilirubin 1.1 mg/dl (0.2-1.3); Total Protein 3.4 g/dl (6.3-8.2)
[2024-07-19 11:39] LABS: Lactic Acid 1.2 mmol/L (0.7-2.0)
[2024-07-19 11:40] LABS: Ammonia 10 umol/L (9-30)
[2024-07-19 11:42] LABS: ALT (SGPT) 25 U/L (0-35); AST (SGOT) 59 U/L (14-36); Albumin 2.3 g/dl (3.5-5.0); Alkaline Phosphatase 269 U/L (38-126); Direct Bilirubin 1.2 mg/dl (0.0-0.4); Total Bilirubin 1.2 mg/dl (0.2-1.3); Total Protein 3.8 g/dl (6.3-8.2)
--- NOTE | 2024-07-19 12:02 | PTCARENOTE ---
patient reassessed. had large soft brown yellow stool followed by large amount dark bloody stool and clots. 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 orders pending
[2024-07-19] MEDS: MEPHYTON 10 MG PO (12:10)
[2024-07-19] MEDS: LEVOPHED 258 MG IV (12:11)
--- NOTE | 2024-07-19 13:22 | CON.ONC ---
Impression
Impression
- coagulopathy
- C diff colitis
- hypotension
- afib on eliquis
- ESRD on HD
Plan
Plan
- Initial PT/INR on admission notably high with INR 4.59, PTT 45.3. Repeat 07/18 and today with further rise, INR now 8.0, PTT 48.7. Fibrinogen also mildly low at 163 ng/ml, DD high at 1.58. Pt without clinical signs of acute DIC, no bruising,
bleeding at lines however pt did have bloody bowel movement today. Labs also show dropping hgb and platelets, mild rise in T bili which raises suspicion for MAHA/TMA process developing. Pt's coag derangements however could also be related to eliquis
as some pts can have coag elevations due to these. she could also have element of hepatic hypoperfusion causing hepatic coagulaopathy (however no marked changes in LFTs). Also may be nutritional component with K deficiency.
- pt taking eliquis for afib however remote episodes and remains in sinus. recommend holding this for now. with bleeding would hold all AC for now.
- due to bleeding event recommend giving vitamin K to bring down INR. I do not feel PCC is indicated however if more serious bleeding occurs then may be indicated for eliquis reversal (last dose this am). If ongoing bleeding symptoms recommend FFP
with both PT and PTT elevated, low fibrinogen.
- check hemolysis panel.
- CBc daily. transfuse for hgb < 8.0 g/dl w/ bleed, plts < 20K.
Patient History
History of Present Illness
Patient is a 73 y/o female from [facility] with pmhx of ESRD on HD (MWF) diagnosed in April 2024 after hospitalization with septic shock and paroxysmal Afib on Eliquis who presented to the ED with low blood pressures detected while on
dialysis. Patient has a h/o HTN but has been dealing with low BPs since April last year after she was hospitalized at [facility] for septic shock patient had groin abscess complicated by C. Diff colitis, pneumonia, RENATO, and Afib). Takes midodrine
q8hrs for her low BPs. Patient was also recently hospitalized at [facility] for bacteremia with CRE enterobacter garcia resistant to antibiotics (secondary to infected hemodialysis port) and received treatment with Cefiderocol. Additionally, she was
treated with fluconazole for intertrigo, completed a course of valacyclovir for shingles, and oral vancomycin regimen for C. difficile colonization. ON this admission she had return of foul smelling diarrhea and repet C diff testing positive. she is
now receiving Eracacycline, flagyl, PO vanco. She is requiring pressor support however clinically awake alert and feeling well with decreased loose stool. Hematology consulted for coagulation testing derangements. Cogs yesterday showed INR 7.34, PTT
46.8, fibrinogen 163, d =dimer 1.58. the only prior are from admission with INR 4.59, PTT 45.3. Pt has been receiving her eliquis throughout this stay. She notes afib was diagnosed in April however she converted to sinus during that stay and
since then only had one short bout of recurrence. in NSR now. at time of our encounter she denies melena, BRBPR, hematuria, easy bruising, bleeding at lines, gum bleeding. However after that and prior to this note her RN notified team that pt had
more formed stool followed by BRB and clots. Hgb has downtrended on this admission from 12.6 g/dl to 9.7 g/dl today, plts also decreased from normal range to 68K today. LFTs today also with mild uptrend in T bili to 1.2 with mild increase in AST,
ALP.
Patient Medication
�Medication �Instructions �Recorded �Confirmed �Last Taken �Type
acetaminophen 500 mg tablet 500 mg PO Q8HPRN PRN mild pain 05/26/24 07/13/24 Unknown History
albuterol sulfate 90 mcg/actuation 2 puff inhalation R Q6HPRN PRN 05/26/24 07/13/24 Unknown History
aerosol inhaler (Ventolin HFA) wheezing
amiodarone 200 mg tablet 200 mg PO DAILY Heart 05/26/24 07/13/24 Unknown History
Disease/Condition
apixaban 5 mg tablet (Eliquis) 5 mg PO BID Blood Clot 05/26/24 07/13/24 Unknown History
Prevention/Tx
bisacodyl 10 mg rectal suppository 10 mg MD DAILYPRN PRN if no result 05/26/24 07/13/24 Unknown History
from mom
brompheniramine-phenylephrine 2 5 ml PO Q4HPRN PRN cough/congestion 05/26/24 07/13/24 Unknown History
mg-5 mg/5 mL oral liquid
ferrous gluconate 324 mg (38 mg 324 mg PO Q48H Supplement 05/26/24 07/13/24 Unknown History
iron) tablet
folic acid 1 mg tablet 1 mg PO DAILY Supplement 05/26/24 07/13/24 Unknown History
gabapentin 100 mg capsule 100 mg PO DAILY Pain 05/26/24 07/13/24 Unknown History
magnesium hydroxide 400 mg/5 mL 30 ml PO HSPRN PRN no bm by 3rd day 05/26/24 07/13/24 Unknown History
oral suspension (Milk of Magnesia)
melatonin 5 mg tablet 5 mg PO HS Sleep 05/26/24 07/13/24 Unknown History
miconazole nitrate 2 % topical 1 applic topical TID under b/l 05/26/24 07/13/24 Unknown History
powder breast,groin,ab
mometasone-formoterol HFA 200 2 puff inhalation R BID 05/26/24 07/13/24 Unknown History
mcg-5 mcg/actuation aerosol Lung/Breathing Issues
inhaler (Dulera)
montelukast 10 mg tablet 10 mg PO DAILY Allergies 05/26/24 07/13/24 Unknown History
rosuvastatin 5 mg tablet 5 mg PO DAILY High Cholesterol 05/26/24 07/13/24 Unknown History
Lactobac no.2-Bifidobac no.1-S. 2 cap PO DAILY probiotic 07/13/24 07/13/24 Unknown History
thermo 112.5 billion cell capsule
(Visbiome)
cyanocobalamin (vitamin B-12) 1,000 mcg PO NOON Supplement 07/13/24 07/13/24 Unknown History
1,000 mcg capsule
miconazole nitrate 2 % topical 1 spray topical BID groin 07/13/24 07/13/24 Unknown History
spray powder
miconazole nitrate 2 % topical 1 spray topical DAILYPRN PRN 07/13/24 07/13/24 Unknown History
spray powder incontinence areas
midodrine 5 mg tablet 5 mg PO TID hypotension 07/13/24 07/13/24 Unknown History
ondansetron HCl 4 mg tablet 4 mg PO Q6HPRN PRN nausea 07/13/24 07/13/24 Unknown History
pantoprazole 40 mg tablet,delayed 40 mg PO DAILY Gastrointestinal 07/13/24 07/13/24 Unknown History
release issue
Active Medications
Generic Name Dose Route Start Last Admin
Trade Name Freq PRN Reason Stop Dose Admin
Acetaminophen 500 mg 07/13/24 21:49
Acetaminophen 500 Mg Tablet PO 08/10/24 21:48
Q8HPRN PRN
mild pain
Albuterol 2 puff 07/13/24 21:49
Albuterol Hfa [90 Mcg/Dose] Inhaler INH
R Q6HPRN PRN
wheezing
Protocol
Amiodarone HCl 200 mg 07/14/24 08:00 07/19/24 08:53
Amiodarone 200 Mg Tablet PO 08/11/24 07:59 200 mg
DAILY COLE Administration
Apixaban 5 mg 07/16/24 11:30 07/19/24 08:53
Apixaban (Eliquis) 5 Mg Tablet PO 08/13/24 11:29 5 mg
BID COLE Administration
Bisacodyl 10 mg 07/13/24 21:49
Bisacodyl 10 Mg Rectal Suppository RECTAL 08/10/24 21:48
DAILYPRN PRN
if no result from mom
Budesonide/Formoterol Fumarate 2 puff 07/13/24 23:45 07/19/24 07:50
Symbicort Inhaler 160/4.5 INH 08/10/24 23:44 2 puff
R BID COLE Administration
Calcitriol 0.25 mcg 07/16/24 08:00 07/19/24 08:53
Calcitriol 0.25 Microgram Capsule PO 08/13/24 07:59 0.25 mcg
DAILY COLE Administration
Cyanocobalamin 1,000 mcg 07/14/24 12:00 07/14/24 11:06
Cyanocobalamin 1,000 Mcg Tablet PO 08/11/24 11:59 1,000 mcg
NOON COLE Administration
Dextrose 12.5 grams 07/15/24 10:00
Dextrose 50% (0.5 Grams/Ml) 50 Ml Syringe IV 08/12/24 09:59
[id number] PRN
hypoglycemia
Protocol
Ferrous Sulfate 325 mg 07/14/24 08:00 07/14/24 08:18
Ferrous Sulfate 325 Mg Tablet PO 08/11/24 07:59 325 mg
Q48H COLE Administration
Folic Acid 1 mg 07/14/24 08:00 07/14/24 08:15
Folic Acid 1 Mg Tablet PO 08/11/24 07:59 1 mg
DAILY COLE Administration
Gabapentin 100 mg 07/14/24 08:00 07/14/24 08:19
Gabapentin 100 Mg Capsule PO 08/11/24 07:59 100 mg
DAILY COLE Administration
Glucagon 1 mg 07/15/24 10:00
Glucagon 1 Mg Vial IM 08/12/24 09:59
PRN PRN
hypoglycemia - no IV access
Protocol
Metronidazole 100 mls @ 100 mls/hr 07/14/24 14:00 07/19/24 13:16
Flagyl 500 Mg IV 100 mls
Q8H COLE Administration
Eravacycline 75 mg/ Sodium 257.5 mls @ 250 mls/hr 07/15/24 09:15 07/19/24 10:10
Chloride IV 257.5 mls
Q12H COLE Administration
Norepinephrine Bitartrate 8 mg 258 mls @ 0 mls/hr 07/17/24 00:15 07/19/24 12:11
/ Sodium Chloride IV 258 mls
PER PROTOCOL COLE Administration
Protocol
Per Protocol
Insulin Aspart 0 units 07/18/24 16:30 07/19/24 13:16
Insulin Aspart Low Resistance 300 Units/3 Ml Pen.Injctr SC 08/15/24 16:29 Not Given
AC COLE
Protocol
Lactobacillus/Bifidobacterium 2 cap 07/14/24 08:00 07/14/24 08:19
Lactobac/Bifidobac (Visbiome) PO 08/11/24 07:59 2 cap
DAILY COLE Administration
Magnesium Hydroxide 30 ml 07/13/24 21:49
Milk Of Magnesia 30 Ml Cup PO 08/10/24 21:48
HSPRN PRN
no bm by 3rd day
Melatonin 5 mg 07/13/24 22:00 07/18/24 23:41
Melatonin 5 Mg Tablet PO 08/10/24 21:59 Not Given
HS COLE
Miconazole Nitrate 0 applic 07/13/24 23:28 07/19/24 08:52
Miconazole Powder Bottle TOPICAL 08/10/24 21:59 1 applic
TID COLE Administration
Midodrine 10 mg 07/14/24 08:00 07/19/24 11:44
Midodrine 5 Mg Tablet PO 08/11/24 07:59 10 mg
TID@0800,1200,1600 COLE Administration
Montelukast Sodium 10 mg 07/14/24 08:00 07/14/24 08:15
Montelukast Sodium 10 Mg Tablet PO 08/11/24 07:59 10 mg
DAILY COLE Administration
Ondansetron HCl 4 mg 07/13/24 21:49 07/14/24 09:35
Ondansetron 4 Mg Tablet PO 08/10/24 21:48 4 mg
Q6HPRN PRN Administration
nausea
Ondansetron HCl 4 mg 07/17/24 11:27 07/17/24 17:09
Ondansetron 4 Mg/2 Ml Vial IV 08/14/24 11:26 4 mg
Q6HPRN PRN Administration
NAUSEA/VOMITING
Rosuvastatin Calcium 5 mg 07/14/24 08:00 07/14/24 08:14
Rosuvastatin (Crestor) 5 Mg Tablet PO 08/11/24 07:59 5 mg
DAILY COLE Administration
Sodium Chloride 0 flush 07/13/24 19:00
Sodium Chloride 0.9% (Flush) Syringe IV 08/10/24 18:59
PER PROTOCOL COLE
Vancomycin HCl 500 mg 07/14/24 22:00 07/19/24 10:10
Vancomycin Oral Solution 50 Mg/Ml In Oral Syringe PO 500 mg
Q6H COLE Administration
Review of Systems
-
History Source: Patient
Constitutional: Reports No Appetite and Fatigue; Denies Fever
Respiratory: Denies Cough
Cardiac: Denies Chest Pain
GI: Reports Abdominal Pain and Diarrhea; Denies Nausea, Bloody Stools or Black Stools
: Denies Bleeding
Hematologic/Lymphatic: Denies Bleeding or Bruising
Physical Exam
-
General: Well Developed, Well Nourished and No Apparent Distress
HEENT: Negative Jaundice
Cardiology: Normal Sinus Rhythm
Pulmonary: Clear
GI: Soft; Negative Distended
Musculoskeletal: No Edema
Neurology: Non Focal
Hematologic / Lymphatic: No Petechiae
Labs
Lab Results
WBC 11.9 10^3/uL (4.8-10.8) H 07/19/24 04:44
RBC 3.37 10^6/uL (4.20-5.40) L 07/19/24 04:44
Hgb 9.7 g/dL (12.0-16.0) L 07/19/24 04:44
Hct 30.9 % (37.0-47.0) L 07/19/24 04:44
MCV 91.7 fL (81.0-99.0) 07/19/24 04:44
MCH 28.8 pg (27.0-31.0) 07/19/24 04:44
MCHC 31.4 g/dL (33.0-37.0) L 07/19/24 04:44
RDW 17.5 % (11.5-14.5) H 07/19/24 04:44
Plt Count 68 10^3/uL (130-400) L D 07/19/24 04:44
MPV 11.3 fL (7.4-10.4) H 07/19/24 04:44
Abs Immat Gran (auto) 0.2 10^3/uL (0-0.05) H 07/19/24 04:44
Absolute Neuts (auto) 9.6 10^3/uL (1.4-6.5) H 07/19/24 04:44
Absolute Lymphs (auto) 1.6 10^3/uL (1.2-3.4) 07/19/24 04:44
Absolute Monos (auto) 0.5 10^3/uL (0.1-0.6) 07/19/24 04:44
Absolute Eos (auto) 0.1 10^3/uL (0-0.7) 07/19/24 04:44
Absolute Basos (auto) 0.0 10^3/uL (0-0.2) 07/19/24 04:44
Immature Gran % 1.3 % (0-0.5) H 07/19/24 04:44
Neutrophils % 80.5 % (42.2-75.2) H 07/19/24 04:44
Lymphocytes % 13.3 % (20.5-51.1) L 07/19/24 04:44
Monocytes % 3.8 % (1.7-9.3) 07/19/24 04:44
Eosinophils % 0.8 % (0-6) 07/19/24 04:44
Basophils % 0.3 % (0-2) 07/19/24 04:44
Creatinine 1.6 mg/dL (0.6-1.0) H 07/19/24 04:44
Vital Signs
Vital Signs
Temp Pulse Resp BP Pulse Ox
97.9 F 101 16 95/59 96
07/19/24 07:23 07/19/24 13:15 07/19/24 13:15 07/19/24 13:15 07/19/24 13:15
[2024-07-19 13:25] LABS: Glucose - Point of Care 98 mg/dl (70-99)
[2024-07-19 14:03] LABS: Reticulocyte Count 0.2 % (0.4-2.8)
--- NOTE | 2024-07-19 14:28 | W.PN.HOSP.TC ---
Addendum entered and electronically signed by Patricia Hernandez MD 07/19/24 20:13:
I saw and evaluated the patient independently. I reviewed the resident�s note and agree with findings and plan as documented by Dr. Dominguez.
GENERAL: well developed, well nourished, female in no apparent distress
HEENT: NC/AT--tunnelled HD cath right SC
HEART: regular rate and rhythm, +S1, +S2
LUNGS : clear to auscultation bilaterally
ABDOM: soft, nontender, nondistended, + bowel sounds
EXT: no cyanosis, clubbing, or edema
NEUROLOGIC: grossly intact
Septic shock (POA) with metabolic acidosis and pressor dependent hypotension-- with watery foul smelling diarrhea due to C. diff positivity--was started on Dificid but apprec ID--changed to oral vanco/flagyl--blood culture neg--WBC and pressor
requirements decreasing but not yet off--apprec weekend receptionist--apprec CRS (recommending surgery) but pt declining at this time-- cont midodrine--Eravacycline started by ID (apprec input), discussing fecal transplant if pt survives without
surgery--asked hospice to weigh in for educational purposes only--no plans to withdraw care at this time....doing better today--weaning pressors
coagulopathy vs DIC--pt labs consistent with this BUT clinically not--no evidence of bleeding nor clotting--low fibrinogen, high PT/PTT/INR/D-Dimer--pt on eliquis which likely can skew lab values--s/p vit K for now, apprec heme
anemia of chronic disease--now with heme positive stool and BRBPR--likely from C. diff--no need for transfusion at this time
hyponatremia--sodium 133--getting HD--renal aware
hypokalemia--replete
hypocalcemia--replete
Paroxysmal Afib- Hold Eliquis- Cont amiodarone
ESRD on HD- Nephrology following for HD needs
Asthma- Continue home meds
Anemia, chronic- Stable
Hypomagnesemia, hypokalemia likely due to diarrhea--replete as needed
Code status: DNR--told pt and daughter would wait until Wed to see if any improvement with getting off pressors, if not or if things worsen, would strongly consider hospice
DVT proph: Eliquis
Total Critical Care Time 32 minutes. I was immediately available to the patient and staff. I personally examined, reviewed labs, diagnostic images/reports, interpretations, treatment plans, discussed patient care with other providers and family
or caregivers (if patient is unable to make decisions), entered orders as appropriate and documented the medical record.
Original Note:
Today's Communication/Plan
-
Continue antibiotics
Check lactic acid, ammonia level
Hold Eliquis
GI consult appreciated
Vitamin K per hematology
Hemolysis panel pending
H&H
Wean pressors as able
Assessment / Plan
Assessment / Plan
73 y/o female with h/o ESRD on HD and recent hospitalizations presenting with:
# Septic shock POA, likely 2/2 C. Diff
- CXR negative
- Norovirus neg, stool culture negative
- Leukocytosis, white count trended up, 11.9 today
- On Levophed, pressor needs increasing
- Continue to wean pressors as able
- Lactic acid, ammonia normal
- Normal bowel sounds, abdomen distended but non tender
- C. Diff positive, Fulminant, second episode
- Abdominal x-ray (07/14): dilated transverse colon to 7.4 cm with wall thickness, no free air.
- Toxic megacolon? Afebrile, hr <120, white count 17, anemia? (chronic)
- Blood Cx no growth after 72 hours
- ID following - continue oral vancomycin 500 QID, IV metronidazole 500 Q8hr and eravacycline 75 IV BID
- Colorectal surgery following peripherally - discussed treatment options including surgery (i.e.�subtotal colectomy with end ileostomy) and continued nonoperative measures
- Patient and family declined surgery
- Daughter at bedside, asking about hospice, hospice spoke with patient and family
- Continue diet
# Hypotension likely volume depleted 2/2 diarrhea and dialysis
- on Levophed, titrate to keep MAP>65, pressor breathing increasing
- Continue to hold IV fluids
- Continue midodrine 10 tid
- Status post albumin x2
# Thrombocytopenia and coagulopathy
- Plts continue to drop, 68 today -- held Eliquis
- Patient reported to have heme positive stools this a.m. and bloody bowel movement
- INR, PTT elevated, fibrinogen low -- unclear if PTT, INR are reliable given patient is on Eliquis
- Hematology following -- suspicion for MAHA/TMA -- recommended vitamin K 10 mg oral, check hemolysis panel, transfuse for hemoglobin less than 8 with bleed, platelets less than 20K -- If ongoing bleeding symptoms recommend FFP
- Gastroenterology consulted
- Unclear etiology, medication related ?
- It does not appear that Eliquis has any interaction with C. Diff meds -- held Eliquis
- Eravacycline adverse effects include prolonged PTT
- Will monitor Hgb
- Maintain active Type and Screen
# QTc prolongation
-Now resolved
- Continue Zofran 4 for now
- Check EKG and electrolytes daily
- Continue to monitor
# Hypokalemia and hypophosphatemia
- Replete K and Phos as needed
# Hypoalbuminemia
- Status post albumin x2
- Improving, albumin 2.3 today
- Nephrology following
# Hypocalcemia
- Now resolved
# Hyponatremia
- Nephrology following
- Stable
# Paroxysmal Afib
- Hold Eliquis
- Continue amiodarone
# ESRD on HD
- Nephrology following
- HD due tomorrow, plan for not pursuing aggressive fluid removal
# Asthma
- PO home meds held
# Anemia, chronic
- Stable
# Hypomagnesemia, hypokalemia likely 2/2 diarrhea
- Repleted as needed
Code status: DNR
DVT prophylaxis: Eliquis
Anticipated Discharge: > 48 hours
Subjective/Interval History
-
Date of Service: July 19, 2024
Objective Data
-
Labs:
Laboratory Results
07/19/24 07/19/24 07/19/24
04:44 04:45 11:18
WBC 11.9 H
Hgb 9.7 L
Hct 30.9 L
Plt Count 68 L D
PT 65.8 H
INR > 8.0 H*
APTT 48.7 H
Sodium 133 L
Potassium 3.8
Chloride 101
Carbon Dioxide 23
BUN 16
Creatinine 1.6 H
Glucose 73
Calcium 7.9 L
Total Bilirubin 1.1 1.2
AST 57 H 59 H
ALT 23 25
Alkaline Phosphatase 243 H 269 H
07/19/24 07/19/24
14:30 22:30
WBC
Hgb Pending Pending
Hct Pending Pending
Plt Count
PT
INR
APTT
Sodium
Potassium
Chloride
Carbon Dioxide
BUN
Creatinine
Glucose
Calcium
Total Bilirubin
AST
ALT
Alkaline Phosphatase
Vital Signs:
Vital Signs
Temp Pulse Resp BP Pulse Ox
98 F 101 19 74/52 95
07/19/24 12:30 07/19/24 13:32 07/19/24 13:32 07/19/24 13:30 07/19/24 13:32
I&O
07/18/24 07/19/24 07/20/24
06:59 06:59 06:59
Intake Total 1954.2 / 1965.5 961.8 / 974.9 183.7 / 183.7
Output Total 400 / 400 200 / 200
Balance 1554.2 / 1565.5 761.8 / 774.9 183.7 / 183.7
Review of Systems
-
History Source: Patient
Constitutional: Reports Weakness
EENT: Reports No Symptoms Reported
Respiratory: Reports No Symptoms
Cardiac: Reports No Symptoms
Abdomen/GI: Reports Diarrhea
Breast: Reports No Symptoms
Genitourinary: Reports No Symptoms
Musculoskeletal: Reports No Symptoms
Skin: Reports No Symptoms
Neuro: Reports No Symptoms
Endocrine: Reports No Symptoms
Hematologic / Lymphatic: Reports No Symptoms
Allergy / Immunology: Reports No Symptoms
Physical Exam
-
General: Well Developed, Well Nourished, No Apparent Distress, Comfortable and Obese
HEENT: Normocephalic
Respiratory: Clear to Auscultation
Cardiac: Regular Rhythm and S1/S2
GI: Soft, Nontender, Normal Bowel Sounds and Distended
Rectal: Hem Positive
Genito-urinary: No Costovertebral Tender
Musculoskeletal: No Clubbing, No Cyanosis, Edema, Right Lower Extrem and Edema, Left Lower Extrem
Skin: Warm
Neuro: Awake, Alert and Oriented
Hematologic / Lymphatic: No Lymphadenopathy
Psych: Calm
[2024-07-19 14:47] LABS: Hematocrit 31.6 % (37.0-47.0)
[2024-07-19 15:01] LABS: LDH 171 U/L (120-246)
--- NOTE | 2024-07-19 15:52 | CON.GI ---
Consultation
-
Date/Time Consultation Requested: 07/19/2024
Date/Time Consultation Performed: 07/19/2024
Requesting Provider: Dr. Alberto Nuñez
Performing Provider: Dr. Gill
Reason for Consultation: rectal bleeding
Medical History
Chief Complaint / HPI
Chief Complaint: Hypotension from dialysis
History of Present Illness:
Michaela is a 73-year-old female from [place] he was a past medical history of hemodialysis that started last fall after hospitalized with septic shock, paroxysmal atrial fibrillation actively on Eliquis until today who was sent to the
emergency room on 07/13/2024 with hypotension during dialysis. She has had low blood pressures since April. She was hospitalized at [facility] for septic shock with a groin abscess complicated by C. difficile colitis, pneumonia, acute kidney
injury and atrial fibrillation. She does take midodrine every 8 hours for her low blood pressures. She was also recently here for a bacteremia due to an infected hemodialysis port. On a course for valacyclovir for shingles, oral vancomycin for C.
difficile colonization. On this admission she had return over the foul-smelling diarrhea and was positive for C. difficile. She is now on Flagyl and high-dose oral vancomycin and Eracacycline for salvage therapy started by infectious disease. She
has been on some pressor support but she feels well. She has no abdominal pain and never did. Colorectal surgery was involved because she had some mild distention in her colon but again no pain. Her bowel movements are improving and the frequency
of her bowel movements are improving.
Today I was called because she had rectal bleeding with maroon clot. Her coagulation studies are vastly abnormal. On admission they were abnormal with an INR of 4.5, PTT 45 and has been receiving Eliquis throughout her stay and had no bleeding
until today. Today, her INR is greater than 8 and with the bleeding her Eliquis has been held. Her fibrinogen was low, D-dimer was high and there was some concern for DIC. She has no significant bruising or epistaxis or other bleeding other than
some mild rectal bleeding. Her hemoglobin yesterday was 9.5 today it is 10. She has not received any blood transfusions.
She has no recent abdominal imaging other than an x-ray on 07/14/2024 showing mild gaseous distention of the transverse colon measuring 7.4 cm and wall thickening with potential colitis. She has no abdominal pain and no pain with palpation. She is
eating, she is coherent and talkative.
She has never had a GI bleed.
Past Medical History
Past Medical History: Other (End-stage renal disease on hemodialysis, paroxysmal atrial fibrillation on Eliquis, C. difficile colitis, pneumonia, recent groin abscess)
Past Surgical History: Other (Left hip replacement, cataracts)
Social History
Tobacco: Former Smoker
Alcohol: None
Drug: None
Living: [facility]
Family History
Family History: Other (Sister from colon cancer)
Allergies / Home Medications
Allergy/AdvReac Type Severity Reaction Status Date / Time
cephalexin Allergy tolerates Verified 06/03/24 11:13
cefazolin
codeine Allergy Nausea / Verified 05/26/24 15:44
Vomiting
�Medication �Instructions �Recorded
acetaminophen 500 mg tablet 500 mg PO Q8HPRN PRN mild pain 05/26/24
albuterol sulfate 90 mcg/actuation 2 puff inhalation R Q6HPRN PRN 05/26/24
aerosol inhaler (Ventolin HFA) wheezing
amiodarone 200 mg tablet 200 mg PO DAILY Heart 05/26/24
Disease/Condition
apixaban 5 mg tablet (Eliquis) 5 mg PO BID Blood Clot 05/26/24
Prevention/Tx
bisacodyl 10 mg rectal suppository 10 mg NC DAILYPRN PRN if no result 05/26/24
from mom
brompheniramine-phenylephrine 2 5 ml PO Q4HPRN PRN cough/congestion 05/26/24
mg-5 mg/5 mL oral liquid
ferrous gluconate 324 mg (38 mg 324 mg PO Q48H Supplement 05/26/24
iron) tablet
folic acid 1 mg tablet 1 mg PO DAILY Supplement 05/26/24
gabapentin 100 mg capsule 100 mg PO DAILY Pain 05/26/24
magnesium hydroxide 400 mg/5 mL 30 ml PO HSPRN PRN no bm by 3rd day 05/26/24
oral suspension (Milk of Magnfelipe)
melatonin 5 mg tablet 5 mg PO HS Sleep 05/26/24
miconazole nitrate 2 % topical 1 applic topical TID under b/l 05/26/24
powder breast,groin,ab
mometasone-formoterol HFA 200 2 puff inhalation R BID 05/26/24
mcg-5 mcg/actuation aerosol Lung/Breathing Issues
inhaler (Dulera)
montelukast 10 mg tablet 10 mg PO DAILY Allergies 05/26/24
rosuvastatin 5 mg tablet 5 mg PO DAILY High Cholesterol 05/26/24
Lactobac no.2-Bifidobac no.1-S. 2 cap PO DAILY probiotic 07/13/24
thermo 112.5 billion cell capsule
(Visbiome)
cyanocobalamin (vitamin B-12) 1,000 mcg PO NOON Supplement 07/13/24
1,000 mcg capsule
miconazole nitrate 2 % topical 1 spray topical BID groin 07/13/24
spray powder
miconazole nitrate 2 % topical 1 spray topical DAILYPRN PRN 07/13/24
spray powder incontinence areas
midodrine 5 mg tablet 5 mg PO TID hypotension 07/13/24
ondansetron HCl 4 mg tablet 4 mg PO Q6HPRN PRN nausea 07/13/24
pantoprazole 40 mg tablet,delayed 40 mg PO DAILY Gastrointestinal 07/13/24
release issue
Review of Systems
-
All other systems: A 12 pt ROS was Negative except as stated above in HPI
Vital Signs
Temp Pulse Resp BP Pulse Ox
97.6 F 88 23 94/55 95
07/19/24 15:23 07/19/24 15:30 07/19/24 15:30 07/19/24 15:30 07/19/24 15:30
Physical Exam
Exam
General: No Apparent Distress, Comfortable and Other (Chronically ill-appearing but awake alert and talkative. Comfortable)
HEENT: Anicteric
Respiratory: Clear
GI: Soft, Non Tender, Non Distended and Normal Bowel Sounds
Neuro: AO x 3
Psych: Calm
Results
WBC 11.9 10^3/uL (4.8-10.8) H 07/19/24 04:44
Hgb 10.0 g/dL (12.0-16.0) L 07/19/24 14:38
Hct 31.6 % (37.0-47.0) L 07/19/24 14:38
MCV 91.7 fL (81.0-99.0) 07/19/24 04:44
Plt Count 68 10^3/uL (130-400) L D 07/19/24 04:44
Absolute Neuts (auto) 9.6 10^3/uL (1.4-6.5) H 07/19/24 04:44
PT 65.8 Sec (11.4-14.6) H 07/19/24 04:45
INR > 8.0 H* 07/19/24 04:45
APTT 48.7 Sec (23.4-35.0) H 07/19/24 04:45
Sodium 133 mmol/L (135-145) L 07/19/24 04:44
Potassium 3.8 mmol/L (3.5-5.1) 07/19/24 04:44
Chloride 101 mmol/L (98-107) 07/19/24 04:44
Carbon Dioxide 23 mmol/L (22-30) 07/19/24 04:44
BUN 16 mg/dl (7-17) 07/19/24 04:44
Creatinine 1.6 mg/dL (0.6-1.0) H 07/19/24 04:44
Calcium 7.9 mg/dl (8.4-10.2) L 07/19/24 04:44
Total Bilirubin 1.2 mg/dl (0.2-1.3) 07/19/24 11:18
AST 59 U/L (14-36) H 07/19/24 11:18
ALT 25 U/L (0-35) 07/19/24 11:18
Alkaline Phosphatase 269 U/L (38-126) H 07/19/24 11:18
Diagnostic Image Results:
Prior GI Procedures:
EGD:
Colonoscopy:
Assessment / Plan
-
Michaela is a 73-year-old female from [place] he was a past medical history of hemodialysis that started last fall after hospitalized with septic shock, paroxysmal atrial fibrillation actively on Eliquis until today who was sent to the
emergency room on 07/13/2024 with hypotension during dialysis found to have C. difficile colitis again now on treatment improving but found to have significantly abnormal coagulation studies now with rectal bleeding on pressors (but baseline on
midodrine)
# Rectal bleeding -most likely related to C. difficile colitis in the setting of significantly abnormal coagulation studies
-- Patient has been on Eliquis and that should be held at this point in the setting of rectal bleeding not to mention her INR is greater than 8
-- Her labs are somewhat concerning for DIC picture although she has no other clinical signs other than the rectal bleeding.
--Her platelets have also decreased, her fibrinogen was mildly low, D-dimer was elevated, INR is current greater than 8. Her platelets are dropping and she has a mild rise in direct bilirubin.
-- Hematology was consulted today
-- It is difficult to figure out what is going on with her coagulation in the setting of Eliquis and that is currently on hold.
-- Hopefully she will get dialyzed tomorrow, her BUN is not dramatically elevated and therefore unlikely uremic bleeding.
-- She was given some vitamin K in case there is some malnutrition,
-- Hematology ordered a hemolysis panel
-- Try and keep platelets above 50K
-- Check factors 5 7 and 8 in the morning, this can help differentiate DIC versus liver failure versus sepsis
-- Hopefully things will improve with holding the Eliquis
-- There is not much I can do endoscopically with this type of coagulopathy
-- Discussed with RN
Data Reviewed
-
Radiology: Report Reviewed by me
-
-
Thank you for consultation and allowing me to participate in the patient's care. Please call the second operator GI physician during the after hours with any questions or concerns.
--- NOTE | 2024-07-19 16:32 | PTCARENOTE ---
patient reassessed. patient had just small smear Burgundy stool. c/o fatigue but denies pain, GI in, orders received
[2024-07-19 18:07] LABS: Glucose - Point of Care 95 mg/dl (70-99)
--- NOTE | 2024-07-19 18:11 | PTCARENOTE ---
patient with short burst afib, self limited.
--- NOTE | 2024-07-19 20:01 | PTCARENOTE ---
Assumed care of pt at 1900. Pt is A/O x4, pleasant and cooperative with care but does have somewhat of a flat affect tonight. No c/o pain. Received pt on Levophed (double concentrated) at 8mcg/min for goal MAP >65. SR 90s-ST low 100s on monitor.
SpO2 94-95% on RA. Physical assessment completed, see nursing shift assessment flowsheet for full details. Call cruz and personal items within reach.
[2024-07-19] MEDS: MELATONIN PO (20:03)
[2024-07-19 22:13] LABS: Hematocrit 32.1 % (37.0-47.0); Hemoglobin 9.8 g/dL (12.0-16.0)
[2024-07-19] MEDS: NEO-SYNEPHRINE 250 IV (23:03)
[2024-07-19] MEDS: CORDARONE 103 MG IV (23:04)
[2024-07-19] MEDS: CORDARONE 518 MG IV (23:04)
--- NOTE | 2024-07-19 23:11 | PTCARENOTE ---
Addendum entered by Claudia Stoll RN 07/19/24 23:42:
Pt converted back to SR 90s at 2315 while bolus dose of Amio was still infusing. Amio now at 1mg/min.
Original Note:
At around 2220 pt changed from SR into AFib with RVR. EKG obtained to confirm. HR anywhere from 120s-160s. BP unchanged (still on the low side and pt remains on Levo at 8mcg/min). Pt asymptomatic. Discussed with ARTHUR Hazel. Pt's po Amiodarone
dc'd, Amio bolus + drip started, Levophed changed to Neosynephrine. See EMAR and med titration flowsheets for further details.
[2024-07-20] VITALS (99 sets, daily range): BP systolic 63–135; BP diastolic 34–103; PULSE 73; O2SAT 98; BMI 34.9
--- NOTE | 2024-07-20 01:58 | PTCARENOTE ---
Midnight assessment unchanged. Pt remains in SR on monitor, 80s-90s, continues on phenylephrine and amiodarone. Phenylephrine has needed to be titrated up to keep MAP >65, see med titration flowsheet for full details.
[2024-07-20] MEDS: PITRESSIN 100 IV ×3 (03:47→23:07)
[2024-07-20] MEDS: NEO-SYNEPHRINE 250 IV ×3 (04:13→13:22)
[2024-07-20 05:01] LABS: % Basophils 0.2 % (0-2); % Eosinophils 0.4 % (0-6); % Immature Granulocytes 1.2 % (0-0.5); % Lymphocytes 15.2 % (20.5-51.1); % Monocytes 4.5 % (1.7-9.3); % Neutrophils 78.5 % (42.2-75.2); Absolute Eosinophils 0.1 10^3/uL (0-0.7); Absolute Immature Granulocytes 0.2 10^3/uL (0-0.05); Absolute Lymphocytes 2.7 10^3/uL (1.2-3.4); Absolute Monocytes 0.8 10^3/uL (0.1-0.6); Absolute Neutrophils 14.1 10^3/uL (1.4-6.5); Hematocrit 30.3 % (37.0-47.0); Hemoglobin 9.5 g/dL (12.0-16.0); Mean Corp Hgb Conc. 31.4 g/dL (33.0-37.0); Mean Corpuscular Volume 92.4 fL (81.0-99.0); Mean Platelet Volume 12.6 fL (7.4-10.4); Nucleated Red Blood Cells % 0 %; Platelet Count 57 10^3/uL (130-400); Red Blood Cell Count 3.28 10^6/uL (4.20-5.40); Red Cell Dist. Width 17.4 % (11.5-14.5)
[2024-07-20 05:09] LABS: Blood Urea Nitrogen 18 mg/dl (7-17); Calcium 7.8 mg/dl (8.4-10.2); Carbon Dioxide 21 mmol/L (22-30); Chloride 102 mmol/L (98-107); Estimated Creatinine Clearance 26 ml/min; Glucose 92 mg/dl (70-99); Potassium 3.6 mmol/L (3.5-5.1); Sodium 133 mmol/L (135-145); eGFR 26.05
[2024-07-20 05:11] LABS: PT 48.1 Sec (11.4-14.6)
[2024-07-20 05:12] LABS: APTT 43.2 Sec (23.4-35.0)
[2024-07-20 05:16] LABS: Fibrinogen 154 MG/DL (199-459)
[2024-07-20 05:18] LABS: INR 5.35
[2024-07-20] MEDS: FIRVANQ 500 MG PO ×3 (05:30→22:33)
[2024-07-20] MEDS: FLAGYL 500 MG 100 IV ×3 (05:30→20:51)
--- NOTE | 2024-07-20 06:43 | PTCARENOTE ---
Assessment unchanged. Pt has had a few loose BMs, burgandy/black/clots noted. Buttocks, upper thighs and perineum are excoriated, some bleeding areas noted not r/t GI bleeding. Pt cleansed with soap and water and copious amounts of barrier cream
applied. Pt's BP continues to be low, maxed on Phenylephrine and Vasopressin started (see medication titration flowsheets). Continues on Amiodarone and remains in SR on monitor.
--- NOTE | 2024-07-20 07:33 | W.PN.HOSP.TC ---
Today's Communication/Plan
-
Abd/pelvis CT with contrast
Factors, haptoglobin pending
Continue antibiotics
Wean pressors as able
Cardiology consult
Hemodialysis today
Assessment / Plan
Assessment / Plan
73 y/o female with h/o ESRD on HD and recent hospitalizations presenting with:
# Septic shock POA, likely 2/2 C. Diff
- CXR negative
- Norovirus neg, stool culture negative
- Leukocytosis, white count trended up, 18.0 today
- On Ta and vasopressin, pressor needs increasing
- Continue to wean pressors as able
- Lactic acid, ammonia normal
- Normal bowel sounds, abdomen non tender
- C. Diff positive, Fulminant, second episode
- Abdominal x-ray (07/14): dilated transverse colon to 7.4 cm with wall thickness, no free air. --> Abd/pelvis Ct with IV/oral contrast
- Toxic megacolon? Afebrile, hr <120, white count 18, anemia? (chronic)
- Blood Cx no growth after 72 hours
- ID following - continue oral vancomycin 500 QID, IV metronidazole 500 Q8hr and eravacycline 75 IV BID
- Colorectal surgery following peripherally - discussed treatment options including surgery (i.e.�subtotal colectomy with end ileostomy) and continued nonoperative measures
- Patient and family declined surgery
- Discussed plans with daughter at bedside
- Continue diet
- Patient started having bloody stools yesterday. Will order abd/pelvis Ct with IV/oral contrast for further evaluation
# Hypotension likely volume depleted 2/2 diarrhea and dialysis
- on Ta and vasopressin now, titrate to keep MAP>65, pressor needs increasing
- Continue to hold IV fluids
- Continue midodrine 10 tid
- Status post albumin x2
# Thrombocytopenia and coagulopathy
- Plts continue to drop, 57 today -- held Eliquis
- Patient continues to have bloody bowel movements
- INR, PTT elevated, fibrinogen low -- unclear if PTT, INR are reliable given patient is on Eliquis
- Hematology following -- suspicion for MAHA/TMA -- recommended vitamin K 10 mg oral, LDH wnl, haptoglobin pending, transfuse for hemoglobin less than 8 with bleed, platelets less than 20K -- If ongoing bleeding symptoms recommend FFP
- Gastroenterology consulted -- factors pending
- Unclear etiology, medication related vs toxic megacolon?
- It does not appear that Eliquis has any interaction with C. Diff meds -- held Eliquis
- Eravacycline adverse effects include prolonged PTT
- Will monitor Hgb
- Maintain active Type and Screen
# QTc prolongation
- Continue Zofran 4 for now
- Check EKG and electrolytes daily
- Continue to monitor
# Hypokalemia and hypophosphatemia
- Replete K and Phos as needed
# Hypoalbuminemia
- Status post albumin x2
- Improving, albumin 2.3 today
- Nephrology following
# Hypocalcemia
- Now resolved
# Hyponatremia
- Nephrology following
- Stable
# Paroxysmal Afib
- Hold Eliquis
- Continue amiodarone
- Patient had Afib with RVR last night, transitioned to amio drip, converted to sinus
- Currently in sinus rhythm
- Cardiology consulted
# ESRD on HD
- Nephrology following
- HD done today, plan for not pursuing aggressive fluid removal
# Asthma
- PO home meds held
# Anemia, chronic
- Stable
# Hypomagnesemia, hypokalemia likely 2/2 diarrhea
- Repleted as needed
Code status: DNR
DVT prophylaxis: Eliquis
Anticipated Discharge: > 48 hours
Subjective/Interval History
-
Date of Service: July 20, 2024
Objective Data
-
Labs:
Laboratory Results
07/19/24 07/20/24
22:07 04:31
WBC 18.0 H
Hgb 9.8 L 9.5 L
Hct 32.1 L 30.3 L
Plt Count 57 L
PT 48.1 H
INR 5.35 H* D
APTT 43.2 H
Sodium 133 L
Potassium 3.6
Chloride 102
Carbon Dioxide 21 L
BUN 18 H
Creatinine 2.0 H
Glucose 92
Calcium 7.8 L
Vital Signs:
Vital Signs
Temp Pulse Resp BP Pulse Ox
98.5 F 76 22 99/68 95
07/19/24 19:47 07/20/24 06:30 07/20/24 06:30 07/20/24 06:30 07/20/24 04:45
I&O
07/19/24 07/20/24 07/21/24
06:59 06:59 06:59
Intake Total 961.8 / 974.9 1917.
Output Total 200 / 200
Balance 761.8 / 774.9 1917.8
Review of Systems
-
History Source: Patient
Constitutional: Reports No Symptoms
EENT: Reports No Symptoms Reported
Respiratory: Reports No Symptoms
Cardiac: Reports No Symptoms
Abdomen/GI: Reports Diarrhea and Bloody Stools
Breast: Reports No Symptoms
Genitourinary: Reports No Symptoms
Musculoskeletal: Reports No Symptoms
Skin: Reports No Symptoms
Neuro: Reports No Symptoms
Endocrine: Reports No Symptoms
Hematologic / Lymphatic: Reports No Symptoms
Allergy / Immunology: Reports No Symptoms
Physical Exam
-
General: Well Developed, Well Nourished, No Apparent Distress and Comfortable
HEENT: Normocephalic
Respiratory: Clear to Auscultation
Cardiac: Regular Rhythm and S1/S2
GI: Soft, Nontender, Nondistended and Normal Bowel Sounds
Genito-urinary: No Costovertebral Tender
Musculoskeletal: No Clubbing, No Cyanosis, Edema, Right Lower Extrem and Edema, Left Lower Extrem
Skin: Warm
Neuro: Awake, Alert and Oriented
Hematologic / Lymphatic: No Lymphadenopathy
Psych: Calm
--- NOTE | 2024-07-20 07:35 | PTCARENOTE ---
Received pt in enhanced precautions. She is awake and alert. Fariba care given for moderate sized melena stool. She has MASD to her sacral/buttock region. Calazime cream applied along with Desenex powder. Left DL PICC with Vasopressin, Phenylephrine &
Amiodarone drips as documented in the work list. Right wrist IV flushed and patent. Right IJ tunneled HD catheter with dressing CDI. Weak pedal pulses. +2 anasarca. +3 hand edema. Lungs dim in the bases. RA pulse ox 94%. Morbidly obese. Anuric. Safe
environment maintained. Will continue supportive care. Safe environment maintained.
[2024-07-20] MEDS: SYMBICORT 160/4.5 MCG INHALER 2 PUFF INH ×2 (07:42→19:47)
[2024-07-20] MEDS: ProAmatine 10 MG PO ×3 (08:28→16:58)
[2024-07-20] MEDS: ROCALTROL 0.25 MCG PO (08:28)
[2024-07-20 08:36] LABS: Glucose - Point of Care 99 mg/dl (70-99)
--- NOTE | 2024-07-20 09:10 | W.PN.INTV ---
Addendum entered and electronically signed by Patric Louise MD 07/20/24 13:57:
See note
Original Note:
Today's Communication / Plan
Recommendations
Keep platelet count greater than 50K
Follow clotting factors
Continue antibiotics, ID following, assess the recent change in WBC trend
Continue amiodarone
Hemodialysis session due today
Wean off vasopressors as able
Replete electrolytes as needed
Assessment
-
Impression
Patient is a 73-year-old female, past medical history of end-stage renal disease hemodialysis dependent, paroxysmal atrial fibrillation, C. difficile in the past, recently discharged from [facility] on June 22 after receiving
broad-spectrum antibiotics for 2 weeks for hemodialysis catheter related infection. At that time received fluconazole for intertrigo, valacyclovir for shingles, oral vancomycin for C. difficile. Now presented with foul-smelling diarrhea for 2 days
and progressive septic shock including, low blood pressures, elevated WBC count, vasopressor dependence.
Evidence of C. difficile colitis on abdominal x-ray, transverse colon 7.4 cm with the loss of haustrations.
Reason for ICU admission:progressively worsening condition, increased amount of vasopressors, WBC count worsening.
On oral vancomycin, IV metronidazole and IV eravacyclin.
Patient opted for nonoperative management
Currently being evaluated for coagulopathy, decreased fibrinogen decreased platelet, increased PT/INR, decreased hemoglobin, increased D-dimers, no oozing of blood, had a bowel movement with blood on July 19, 2024, GI consulted-advised
coagulopathy workup including factor V, factor VIII, and factor VII assay, hematology following-hemolysis panel is pending
On observation, keep platelet count greater than 50K as per heme
Patient and family aware
Assessment
Septic shock secondary to C. difficile colitis
Transverse megacolon secondary to C. difficile?
Paroxysmal atrial fibrillation
End-stage renal disease
Hypokalemia
Hypomagnesemia
Thrombocytopenia
Coagulopathy-Decreased fibrinogen, elevated INR
Plan/recommendations
Septic shock secondary to C. difficile colitis
Toxigenic C. difficile positive,MRSA positive
Hypotensive, vasopressor dependence, currently on 200 mcg of phenylephrine, 0.03 units of vasopressin,Midodrine 10 mg 3 times daily
Receiving fluids and boluses/albumin boluses on as-needed basis-to help with intravascular volume retention
Leukocytosis-Change in [id number] is following
On oral vancomycin, IV metronidazole, and IV eravacyclin as per ID (salvage therapy)-for toxigenic C. difficile on stool culture
Patient opted for nonoperative management-ID considering oral fecal transplant on outpatient basis-not available inpatient -paperwork started as it takes a long time
Patient to talk to hospice for educational purposes only
Transverse megacolon secondary to C. difficile?
Abdominal x-ray done on 07/14/2024 suggest mild gaseous dilatation of transverse colon, with maximum diameter of 7.4 cm. Suggestion of wall thickening involving transverse colon, suggesting colitis
Colorectal surgery consult appreciated-no longer on vancomycin enemas -gave the patient option of subtotal colectomy with ileostomy-Patient declined surgery
On regular diet, tolerating
Paroxysmal atrial fibrillation
On amiodarone 200 mg daily, Eliquis stopped due to coagulopathy and bloody bowel movements
INR, fibrinogen noted
Primary service to review medications, potential interactions
Received 1 dose of vitamin K on Jul 18, 2024, Eliquis now being held-INR greater than 8, platelets 68, fibrinogen 168
Hematology following
Reviewed at length with patient and family members pathophysiology of possible DIC
End-stage renal disease
On hemodialysis, receives 3 times a week, 3.5-hour session each
Nephro following
Hypokalemia-Replete as needed
Hypomagnesemia-Replete as needed
Hyponatremia
Continue to monitor
Normal serum osmolality
Thrombocytopenia
Coagulopathy-Decreased fibrinogen, elevated INR
GI consult appreciated-suggested uremia, liver dysfunction and autoimmune causes for the bleeding
Factor V, VII and VIII pending
Hemolysis panel pending
Patient due for dialysis today-although urea levels not increase enough to suggest uremic coagulopathy
Heme consult appreciated-continue to monitor platelet count and coagulation profile-keep platelet count greater than 50K
Keep MAP greater than 65
Keep potassium greater than 4 and magnesium greater than 2
Supplemental oxygen as needed
DVT prophylaxis-Eliquis
CODE STATUS-DNR
Subjective Dataa
Subjective Data
Date of Service:
Date of Service: July 20, 2024
Chief Complaint: Salmon Troll Fisher Follow Up and Pulmonary Follow Up
Subjective:
Patient's condition static
Having burgundy stools over the last 24 hours.
On vasopressors, phenylephrine 200 mcg and vasopressin 0.03
On fluids at 100 mL/h, patient is on fluid boluses and albumin on as-needed basis, to help with the intravascular volume retention
On amiodarone 0.5 mcg/kg/min
Subjectively patient feels well, denies any pain, hemodialysis session is due today in noon
Review of Systems
General: Other (Reviewed and negative)
Objective Data
Data Reviewed
Vital Signs / I&O / Oxygen:
Vital Signs
Temp Pulse Resp BP Pulse Ox
97.7 F 72 14 108/68 97
07/20/24 07:25 07/20/24 08:28 07/20/24 07:47 07/20/24 08:28 07/20/24 07:47
Intake and Output
07/19/24 07/20/24 07/21/24
06:59 06:59 06:59
Intake Total 961.8 / 974.9 85.7 / 85.7
Output Total 200 / 200
Balance 761.8 / 774.9 85.7 / 85.7
SaO2 97
Physical Exam
General: Comfortable and Other (Breathing on room air, conversant, denies any pain, feels okay subjectively)
HEENT: Normocephalic and Anicteric
Cardiovascular: S1-S2, Regular Rhythm and Peripheral Edema (Generalized body edema)
Respiratory: Clear and Non-Labored Respirations
GI: Soft, Non Distended, Non Tender and Normal Bowel Sounds
Neurology: Awake, Alert and No Motor Deficits
Skin: Warm, Dry and Good Color
Labs/Micro/Reports
Lab Data
07/20/24 04:31
07/20/24 04:31
Laboratory Results
07/20/24
04:31
PT 48.1 H
INR 5.35 H* D
APTT 43.2 H
Microbiology
07/14/24 12:48 Blood/Venous Blood Culture - Final
No Growth - Final Report
07/13/24 15:58 Blood/Venous Blood Culture - Final
No Growth - Final Report
07/14/24 02:10 Feces/Stool Salmonella/Shigella Culture - Final
No Salmonella, Shigella, Aeromonas or Plesiomonas species
isolated.
07/14/24 02:10 Feces/Stool Campylobacter Culture - Final
No Campylobacter species isolated.
07/14/24 02:10 Feces/Stool Shiga Toxin Test - Final
No E. coli Shiga Toxin 1 or 2 detected.
[2024-07-20] MEDS: XERAVA 257.5 MG IV ×2 (10:56→20:51)
[2024-07-20] MEDS: DESENEX/MITRAZOL/ZEASORB 1 APPLIC TOPICAL ×3 (10:57→20:52)
--- NOTE | 2024-07-20 11:02 | HOSPNOTE ---
Patient at this time is not ready for hospice. We will continue to follow.
--- NOTE | 2024-07-20 11:15 | W.PN.GI.CBS2 ---
Addendum entered and electronically signed by Chely Gill DO 07/20/24 17:54:
Patient seen and examined independently of [employer]. I agree with her note with my additions below
Michaela is a 73-year-old female from [facility] on dialysis with multiple significant issues with recent hospitalization for septic shock from a groin abscess complicated by C. difficile colitis. She was sent from dialysis on 07/13/2024 with
hypotension and has been on multiple pressors. She now has C. difficile colitis. She has not had any imaging since the and is in for a CT scan today. She has 0 abdominal pain. Less frequent bowel movements is being followed by colorectal
surgery but did refuse possible colectomy and infectious disease. GI got called because she was bleeding with significantly abnormal coagulation factors on Eliquis. Her hemoglobin has been relatively stable. Her Eliquis has been on hold. Her DIC
workup is ongoing. She has no active bleeding anywhere else other than some mild rectal bleeding.
Factor levels have been sent.
I see no need for endoscopic procedures in the setting of her significant coagulopathy.
Will see her intermittently
Original Note:
Today's Communication / Plan
-
for repeat CT today
cont to hold Eliquis with marked coagulopathy and bleeding
hbg stable 9.5 -- has not required transfusion during admission
appreciate heme input with concern for DIC
trend hbg, platelets, INR
try to keep platelets over 50,000
s/p vitamin K
factor level pending
hold on endoscopic procedures
pt decling surgical intervention and hospice has been discussed
ID following
updated daugher at bedside
Assessment / Plan
-
Michaela is a 73-year-old female from [facility] he was a past medical history of hemodialysis that started last fall after hospitalized with septic shock, paroxysmal atrial fibrillation actively on Eliquis until today who was sent to the
emergency room on 07/13/2024 with hypotension during dialysis found to have C. difficile colitis again now on treatment improving but found to have significantly abnormal coagulation studies now with rectal bleeding on pressors (but baseline on
midodrine)
# Rectal bleeding -most likely related to C. difficile colitis in the setting of significantly abnormal coagulation studies/low platelets
# fulminant C-diff infection
# septic shock with hypotension requiring pressors
# increased LFT's
for repeat CT today
cont to hold Eliquis with marked coagulopathy and bleeding
hbg stable 9.5 -- has not required transfusion during admission
appreciate heme input with concern for DIC
trend hbg, platelets, INR
try to keep platelets over 50,000
s/p vitamin K
factor level pending
hold on endoscopic procedures
pt decling surgical intervention and hospice has been discussed
ID following
updated daugher at bedside
Subjective
Subjective
Date of Service: July 20, 2024
2/3 burgundy stool, on regular diet
Objective
Data Reviewed
Laboratory Data:
Laboratory Results
07/20/24 04:31
07/20/24 04:31
Laboratory Results
PT 48.1 Sec (11.4-14.6) H 07/20/24 04:31
INR 5.35 H* D 07/20/24 04:31
APTT 43.2 Sec (23.4-35.0) H 07/20/24 04:31
Phosphorus 4.0 mg/dl (2.5-4.5) 07/19/24 04:44
Magnesium 2.3 mg/dl (1.6-2.3) 07/18/24 05:04
Total Bilirubin 1.2 mg/dl (0.2-1.3) 07/19/24 11:18
AST 59 U/L (14-36) H 07/19/24 11:18
ALT 25 U/L (0-35) 07/19/24 11:18
Alkaline Phosphatase 269 U/L (38-126) H 07/19/24 11:18
Vital Signs and I&O:
Vital Signs
Temp Pulse Resp BP Pulse Ox
97.7 F 72 14 108/68 97
07/20/24 07:25 07/20/24 08:28 07/20/24 07:47 07/20/24 08:28 07/20/24 07:47
I&O
07/19/24 07/20/24 07/21/24
06:59 06:59 06:59
Intake Total 961.8 / 974.9 85.7 / 85.7
Output Total 200 / 200
Balance 761.8 / 774.9 85.7 / 85.7
Physical Exam
Physical Exam
HEENT: Anicteric and Moist mucous membranes
Cardiology: Normal Sinus Rhythm
GI: Soft, Non Distended and Non Tender
Neuro: Non Focal
--- NOTE | 2024-07-20 11:43 | W.PN.ONC2 ---
Today's Communication / Plan
-
- small amount of rectal bleedig today otherwise no serious bleeding or bruising.
- INR down to 5.3 after vitamin K.
- recommend continuing to trend PT, PTT, fibrinogen for now.
- mixing studies if remain elevated 72 hours after last eliquis dose (wed)
Impression
Impression
- coagulopathy
- C diff colitis
- hypotension
- afib on eliquis
- ESRD on HD
Plan
Plan
- Initial PT/INR on admission notably high with INR 4.59, PTT 45.3. Repeat 07/18 and 07/19 with further rise, INR now 8.0, PTT 48.7. Fibrinogen also mildly low at 163 ng/ml, DD high at 1.58. Pt without clinical signs of acute DIC, no bruising, bleeding
at lines however pt did have bloody bowel movement yesterday and small amount of BRBPR today. Labs also show dropping hgb and platelets, mild rise in T bili which raises suspicion for MAHA/TMA process developing. retic count however inappropriately
low at 0.2 with normal LDH. hapto pending but this makes active hemolysis less likely.
- Pt's coag derangements could also be related to eliquis as some pts can have coag elevations due to these. she could also have element of hepatic hypoperfusion causing hepatic coagulopathy (however no marked changes in LFTs). Also may be
nutritional component with K deficiency.
- pt taking eliquis for afib however remote episodes and remains in sinus. now holding with last dose am 2/2. with bleeding would hold all AC for now.
- due to bleeding received vitamin K 10 mg PO 2/2 with mild decrease in INR to 5.3 today. PTT similar to prior at 43.2, repeat fibrinogen 154. I do not feel PCC is indicated however if more serious bleeding occurs then may be indicated for eliquis
reversal. If ongoing bleeding symptoms recommend FFP with both PT and PTT elevated, low fibrinogen.
- factor V, VII, VIII activity ordered. recommend checking PT, PTT mixing studies after eliquis washout (ideally > 48-72 hours after last dose).
- CBc daily. transfuse for hgb < 8.0 g/dl w/ bleed, plts < 20K.
Subjective/Objective
Chief Complaint
coagulopathy
Subjective
pt feeling Ok today. she notes a small amount of blood with bowel movement this am. Denies easy bruising other sites of bleeding. hgb stable today at 9.5 g/dl.
Vital Signs:
Vital Signs
Temp Pulse Resp BP Pulse Ox
97.7 F 72 14 108/68 97
07/20/24 07:25 07/20/24 08:28 07/20/24 07:47 07/20/24 08:28 07/20/24 07:47
Lab Results:
Laboratory Data
WBC 18.0 10^3/uL (4.8-10.8) H 07/20/24 04:31
Hgb 9.5 g/dL (12.0-16.0) L 07/20/24 04:31
Plt Count 57 10^3/uL (130-400) L 07/20/24 04:31
PT 48.1 Sec (11.4-14.6) H 07/20/24 04:31
INR 5.35 H* D 07/20/24 04:31
APTT 43.2 Sec (23.4-35.0) H 07/20/24 04:31
eGFR 26.05 07/20/24 04:31
Physical Exam
HEENT: No Jaundice
Cardiology: Normal Sinus Rhythm
GI: Soft; No Distended
Extremities: No Edema
Neuro: Non Focal
Review of Systems
Review of Systems
Constitutional: Denies Fever
Respiratory: Denies Dyspnea
Gastrointestinal: Denies Diarrhea
Genitourinary: Denies Hematuria
Hem/Lymphatic: Denies Easy Bruising
Orders
Orders
Orders From Last 24 Hours
07/19/24 11:18
LFT [[id number]] Routine
07/19/24 13:37
Add On- LAB Urgent
07/19/24 14:38
Haptoglobin [S] Routine
LDH Routine
[2024-07-20 12:32] LABS: Glucose - Point of Care 98 mg/dl (70-99)
--- NOTE | 2024-07-20 13:46 | CM ---
CM following re: discharge planning.
Discussed in Rounds, reviewed pt's chart, met with pt and pt's daughter at bedside.
Pt's daughter stated that pt started HD treatment in [facility] in March of last year, was placed to [facility] for a short term rehab and HD treatment onsite on , was admitted to on 05/22/24, returned back to
[facility] on 06/22/24 and admitted back to on 07/13/24.
Both pt and her daughter stated they met with product responsibility liaison and it seems pt does not qualify for inpatient hospice at this time and pt will be re-evaluated. Pt's daughter stated she lives in [facility] and as alternative she is looking
for a longterm home or at [facility] personal care that can provide hospice care. Pt's daughter stated she feels that it will be difficult to manage the pt at home when pt's stops HD treatment.
provided pt and her daughter with a list of hospice care providers and potential SNFs/GUY in [facility]. Pt's daughter expressed her interest to [facility] hospice at their personal care facility at [address] [place] [address],
[phone]. Pt's daughter is aware of room and board cost: $350.00 per day.
product responsibility liaison following.
D/C plan: inpatient vs home hospice in a SNF/GUY or [place] hospice facility.
CM will follow with discharge plan updates as hospitalization progresses
--- NOTE | 2024-07-20 13:51 | W.PN.ID1 ---
Date of Service
Date of Service: July 20, 2024
Today's Communication
- no new focal symptoms, would hold with the current broad spectrum therapy with the eravacycline for the moment
- continue oral vancomycin 500 mg PO QID, IV metronidazole 500 mg IV Q8 hours
- c/w eravacycline 1 mg/kg iv q12 - salvage therapy
- patient has refused colostomy, if she progresses to colonic rupture, then we have discussed hospice and she would agree with transitioning. I do feel it is reasonable to continue pursuing maximal medical management at this moment
- has been approved for outpatient fecal transplant
Assessment / Plan
Fulminant C difficile - overall improving
Septic Shock - overall improving
ESRD on HD via HD catheter
- no new focal symptoms, would hold with the current broad spectrum therapy with the eravacycline for the moment
- continue oral vancomycin 500 mg PO QID, IV metronidazole 500 mg IV Q8 hours
- c/w eravacycline 1 mg/kg iv q12 - salvage therapy
- patient has refused colostomy, if she progresses to colonic rupture, then we have discussed hospice and she would agree with transitioning. I do feel it is reasonable to continue pursuing maximal medical management at this moment
- has been approved for outpatient fecal transplant
Coagulopathy management per intensivisty/hematology
Patient is critically ill on pressors with overall improvement, follow pressor requirements, cbc and physical exam.
Chief Complaint
-: C-diff (fulminant) and Other (septic shock)
Subjective / Review of Systems
afebrile
now on phenylephrine and vasopressin
hgb essentially stable
small amount of rectal bleeding ongoing this am - multiple small bloody BMs
no headaches, sinus tenderness, sore throat cough, sputum production, nausea, vomiting, dysuria, new rashes, tenderness over the PIVs
The skin of her buttocks is reportedly macerated - as expected
Previous Groin surgical site fully healed
Vital Signs / Physical Exam
Vital Signs
Vital Signs
Temp Pulse Resp BP Pulse Ox
97.7 F 81 14 97/60 97
07/20/24 07:25 07/20/24 12:32 07/20/24 07:47 07/20/24 12:32 07/20/24 07:47
Physical Exam
Constitutional: Acutely Ill and Other (pale)
Cardiovascular: Regular Rate and S1/S2; Negative Murmur or Rub
Pulmonary: Clear and Symmetric; Negative Wheezes or Rales
Gastrointestinal: Soft, Non Tender, Non Distended and Normal Bowel Sounds
Skin: Warm and Dry; Negative Rash or Jaundice
Objective Data
Lab Data
Lab Results
07/20/24 04:31
07/20/24 04:31
PT 48.1 Sec (11.4-14.6) H 07/20/24 04:31
INR 5.35 H* D 07/20/24 04:31
APTT 43.2 Sec (23.4-35.0) H 07/20/24 04:31
Estimated Creat Clear 26 ml/min 07/20/24 04:31
Lactic Acid 1.2 mmol/L (0.7-2.0) 07/19/24 11:18
Total Bilirubin 1.2 mg/dl (0.2-1.3) 07/19/24 11:18
AST 59 U/L (14-36) H 07/19/24 11:18
ALT 25 U/L (0-35) 07/19/24 11:18
Alkaline Phosphatase 269 U/L (38-126) H 07/19/24 11:18
C-Reactive Protein 200.30 mg/L (0.0-10.00) H 07/13/24 11:18
Most recent labs reviewed.
Micro Results:
07/14/24 12:48 Blood Culture - Final
Blood/Venous No Growth - Final Report
07/13/24 15:58 Blood Culture - Final
Blood/Venous No Growth - Final Report
07/14/24 02:10 Salmonella/Shigella Culture - Final
Feces/Stool No Salmonella, Shigella, Aeromonas or Plesiomonas species
isolated.
Campylobacter Culture - Final
No Campylobacter species isolated.
Shiga Toxin Test - Final
No E. coli Shiga Toxin 1 or 2 detected.
07/14/24 06:18 MRSA Screen - Final
Nose Staph aureus MRSA
07/14/24 02:10 C. difficile GDH Antigen & Toxins - Final
Feces/Stool Toxigenic C.difficile Positive
- Final
Negative for Norovirus GI and GII.
--- NOTE | 2024-07-20 14:00 | W.PN.NEPH.HD ---
Assessment
-
Patient seen on dialysis
Systolic blood pressure at 90 despite 2 pressor support n.p.o. midodrine
UF obviously will be limited
Weights up 2-1/2 kg
I am not sure she will be a dialysis candidate much longer due to ongoing hemodynamic instability
Progress Note - Hemodialysis
-
Date of Service: July 20, 2024
Duration: 30 minutes and 3 hours
Potassium Bath: 4
Calcium Bath: 2.5
Opti-Dialyzer: 160
Blood Flow: 400
Dialysate Flow: 600
Heparin: none
EPO: 2000
[2024-07-20] MEDS: NEO-SYNEPHRINE 1% 260 MG IV (14:02)
--- NOTE | 2024-07-20 14:03 | PTCARENOTE ---
double concentrated Phenylephrine now infusing.
--- NOTE | 2024-07-20 14:08 | W.PN.NEPH.PH ---
Today's Communication / Plan
-
Hd today as hemodynamically tolerated
Maintain dual pressor support to keep MAP 60 or greater
Midodrine IV albumin and IV mannitol will be provided on dialysis to support blood pressure
Assessment/Plan
-
Assessment:
POssible sepsis
Hypotension
C diff diarrhea
Recent Enterobacter bacteremia/GNR - Panresistant-completed abx on 06/19
Hypotension on midodrine
ESRD on HD-MWF through [facility]
Anemia
h/o GIB
Chronic hypoxic respiratory insufficiency
h/o urinary retention
parox a-fib
hyperlipidemia
Hx c-diff colitis
osteoarthritis
Chronic wounds
Hypoantremia
Plan:
UF will be limited on dialysis due to hemodynamic instability in setting of C. difficile colitis
wean pressors as able to keep MAP > 65, currently on 2 pressor support
IV mannitol and IV albumin to be provided on dialysis for blood pressure support
abx per ID
Patient has decided against surgery, hopefully she is improving clinically
generalized edema could be from severe hypoalbuminemia, ok for alb bolus
hyponatremia is dilutional
coagulopathy-heme follows
assisted prognosis is poor
Patient critically ill with ongoing pressor requirement in setting of fulminant C. difficile with hemodynamic collapse
d/w nursing
critical care time 31 minutes
-
-
Date of Service: July 20, 2024
CC / HPI / ROS
-
Chief Complaint:
ESRD
History of Present Illness:
Na better at 133
on 3 antibiotic therapy for C diff
no fever, plt down 57, INR 5.35
on pressors for hypotension
critically ill in ICU
wt is significantly high
tolerated HD 07/17
Review of Systems:
no cp or sob at rest
soft stools
Labs
-
Labs:
WBC 18.0 10^3/uL (4.8-10.8) H 07/20/24 04:31
RBC 3.28 10^6/uL (4.20-5.40) L 07/20/24 04:31
Hgb 9.5 g/dL (12.0-16.0) L 07/20/24 04:31
Hct 30.3 % (37.0-47.0) L 07/20/24 04:31
Plt Count 57 10^3/uL (130-400) L 07/20/24 04:31
Sodium 133 mmol/L (135-145) L 07/20/24 04:31
Potassium 3.6 mmol/L (3.5-5.1) 07/20/24 04:31
Chloride 102 mmol/L (98-107) 07/20/24 04:31
Carbon Dioxide 21 mmol/L (22-30) L 07/20/24 04:31
BUN 18 mg/dl (7-17) H 07/20/24 04:31
Creatinine 2.0 mg/dL (0.6-1.0) H 07/20/24 04:31
eGFR 26.05 07/20/24 04:31
Glucose 92 mg/dl (70-99) 07/20/24 04:31
Calcium 7.8 mg/dl (8.4-10.2) L 07/20/24 04:31
Phosphorus 4.0 mg/dl (2.5-4.5) 07/19/24 04:44
Czf-H-Skkjvnnwgsc Pept 590 pg/ml 07/13/24 12:59
Albumin 2.3 g/dl (3.5-5.0) L 07/19/24 11:18
Physical Exam
-
Vital Signs:
Vital Signs
Temp Pulse Resp BP Pulse Ox
97.7 F 81 14 97/60 97
07/20/24 07:25 07/20/24 12:32 07/20/24 07:47 07/20/24 12:32 07/20/24 07:47
Cardiovascular:: Regular rate and rhythm
Respiratory:: Bilateral: CTA (anteriorly)
Lung Excursion:: Normal
Abdomen:: Distended, Nontender and Soft
Extremity Edema:: +3: Bilateral:
Griffiths Catheter: No
[2024-07-20] MEDS: LEVOPHED 258 MG IV (14:10)
[2024-07-20] MEDS: RETACRIT 2000 UNITS IV (14:32)
[2024-07-20] MEDS: MANNITOL 25% 12.5 GRAMS IV ×2 (14:32→16:13)
--- NOTE | 2024-07-20 14:46 | HOSPNOTE ---
Spoke with daughter and discussed hospice and the philosophy again. The plan is for me to meet with patient and daughter on 07/22 and patient would like to stop dialysis and discontinue all pressors and be placed on comfort. If the
patient will have symptoms that we need to manage then we will admit inpatient if the patient is able to be discharged CM has already placed referrals to facilities. Will continue to follow and will meet on Saturday.
--- NOTE | 2024-07-20 14:51 | CON.CAR ---
Addendum entered and electronically signed by Eugene Hernadnez MD 07/20/24 16:37:
73-year-old woman admitted with fulminant C. difficile infection and septic shock on July 13. She has a history of paroxysmal atrial fibrillation and earlier today had recurrent A-fib. Now in sinus rhythm. No history of atrial fibrillation
prior to April 2024 at the time of extensive admission for groin abscess and C. difficile colitis with sepsis
PMH/PSH: RENATO progressing to hemodialysis April 2024 following admission for groin abscess and C. difficile colitis with sepsis. Enterobacter bacteremia with infected hemodialysis port May and June 2023 and , history of PAF,
hypertension, hypercholesterolemia, left hip replacement
Medications: B12, iron, folate, Neurontin, probiotic, Symbicort, Singulair, rosuvastatin, midodrine 10 3 times daily, metronidazole, oral Flagyl, apixaban on hold, norepinephrine, vasopressin, phenylephrine
97/60, pulse 81, resp rate 14, afebrile, sats 97%, pleasant, no apparent distress, currently on hemodialysis, head neck exam unremarkable, lungs are clear, regular rate and rhythm, no obvious murmurs, JVD okay, abdomen soft and distended,
extremities 1-2+ edema
EKG atrial fibrillation, rate 136 bpm, ST and T abnormality
white count 18, hemoglobin 9.5, platelets are 57, INR is 5.35, BUN and creatinine are 18 and 2, sodium is 133
Chest x-ray: Likely left greater than right effusion
Plan:
She presents with an episode of paroxysmal atrial fibrillation in the setting of severe C. difficile enterocolitis. She was relatively healthy until April and now has end-stage renal disease on hemodialysis and is considering hospice.
Blood pressure is difficult to maintain. She is on norepinephrine, vasopressin, and has been started on IV amiodarone.
She has marked coagulopathy and apixaban is on hold.
Colectomy has been considered as an option though patient would not except, and clinical course has not mandated this thus far.
Currently she is in sinus rhythm.
If aggressive therapy is to be continued it would be reasonable to transition to oral amiodarone and resume anticoagulation after coagulopathy has resolved. Under that circumstance we would probably check an echocardiogram.
However, if patient is to transition to hospice it would be reasonable to withdraw amiodarone and not consider reinitiation of anticoagulation.
Given that she is pressor dependent at present, prognosis is very guarded and it would be reasonable to consider hospice.
We will await decision of family. For now okay to continue amiodarone.
Original Note:
Consultation
Consultation Request
Date/Time Consultation Requested: 07/20/2024
Date/Time Consultation Performed: 07/20/2024
Requesting Provider: Dr. Rizvi
Performing Provider: Fartun Capellan PA-C for Dr. Hernandez
Reason for Consultation: Afib, GIB
Medical History
-
History of Present Illness:
HPI: Michaela is a 73 year old female with PMH of paroxysmal atrial fibrillation, ESRD on HD, asthma, HLD, and chronic hypotension. She presented to [facility] for evaluation of hypotension while at dialysis. Dialysis was not able to be completed because
of hypotension and she was sent to ER for evaluation. Despite low BPs, she was reportedly asymptomatic. She had hospitalization 04/2024 at [facility] for septic shock due to groin abscess and C.diff colitis. Subsequently was hospitalized at
05/2024 for bacteremia related to infected HD port. She noted an episode of foul smelling watery diarrhea the day prior to arrival at as well as another episode while in ER. She was admitted with septic shock due to C. diff. There has also been
concern for DIC and hematology is following. Episode of BRBPR noted, w/ INR >8.0 07/19. Eliquis placed on hold. Overnight noted to go into rapid afib for approximately 1 hour. Placed on amiodarone drip and cardiology consult placed. She spontaneously
converted to SR and remains in SR on review of telemetry 07/20.
PMH:
Paroxysmal atrial fibrillation
Chronic amiodarone therapy
Chronic Eliquis AC
ESRD on HD MWF
Asthma
HLD
Hypotension on chronic midodrine
Past Medical History
Past Medical History: Other (In HPI)
Past Surgical History: Orthopedic (L hip replacement) and Other (cataract surgery)
Social History
Tobacco: Former Smoker
Alcohol: Occasional
Drug: None
Living: Retirement
Employment: Retired
Family History
Family History: Reviewed & Not Pertinent
Allergies / Home Medications
Allergy/AdvReac Type Severity Reaction Status Date / Time
cephalexin Allergy tolerates Verified 06/03/24 11:13
cefazolin
codeine Allergy Nausea / Verified 05/26/24 15:44
Vomiting
�Medication �Instructions �Recorded �Confirmed �Type
acetaminophen 500 mg tablet 500 mg PO Q8HPRN PRN mild pain 05/26/24 07/13/24 History
albuterol sulfate 90 mcg/actuation 2 puff inhalation R Q6HPRN PRN 05/26/24 07/13/24 History
aerosol inhaler (Ventolin HFA) wheezing
amiodarone 200 mg tablet 200 mg PO DAILY Heart 05/26/24 07/13/24 History
Disease/Condition
apixaban 5 mg tablet (Eliquis) 5 mg PO BID Blood Clot 05/26/24 07/13/24 History
Prevention/Tx
bisacodyl 10 mg rectal suppository 10 mg WV DAILYPRN PRN if no result 05/26/24 07/13/24 History
from mom
brompheniramine-phenylephrine 2 5 ml PO Q4HPRN PRN cough/congestion 05/26/24 07/13/24 History
mg-5 mg/5 mL oral liquid
ferrous gluconate 324 mg (38 mg 324 mg PO Q48H Supplement 05/26/24 07/13/24 History
iron) tablet
folic acid 1 mg tablet 1 mg PO DAILY Supplement 05/26/24 07/13/24 History
gabapentin 100 mg capsule 100 mg PO DAILY Pain 05/26/24 07/13/24 History
magnesium hydroxide 400 mg/5 mL 30 ml PO HSPRN PRN no bm by 3rd day 05/26/24 07/13/24 History
oral suspension (Milk of Magnesia)
melatonin 5 mg tablet 5 mg PO HS Sleep 05/26/24 07/13/24 History
miconazole nitrate 2 % topical 1 applic topical TID under b/l 05/26/24 07/13/24 History
powder breast,groin,ab
mometasone-formoterol HFA 200 2 puff inhalation R BID 05/26/24 07/13/24 History
mcg-5 mcg/actuation aerosol Lung/Breathing Issues
inhaler (Dulera)
montelukast 10 mg tablet 10 mg PO DAILY Allergies 05/26/24 07/13/24 History
rosuvastatin 5 mg tablet 5 mg PO DAILY High Cholesterol 05/26/24 07/13/24 History
Lactobac no.2-Bifidobac no.1-S. 2 cap PO DAILY probiotic 07/13/24 07/13/24 History
thermo 112.5 billion cell capsule
(Visbiome)
cyanocobalamin (vitamin B-12) 1,000 mcg PO NOON Supplement 07/13/24 07/13/24 History
1,000 mcg capsule
miconazole nitrate 2 % topical 1 spray topical BID groin 07/13/24 07/13/24 History
spray powder
miconazole nitrate 2 % topical 1 spray topical DAILYPRN PRN 07/13/24 07/13/24 History
spray powder incontinence areas
midodrine 5 mg tablet 5 mg PO TID hypotension 07/13/24 07/13/24 History
ondansetron HCl 4 mg tablet 4 mg PO Q6HPRN PRN nausea 07/13/24 07/13/24 History
pantoprazole 40 mg tablet,delayed 40 mg PO DAILY Gastrointestinal 07/13/24 07/13/24 History
release issue
Review of Systems
-
History Source: Patient
All other systems: Negative unless noted
Physical Exam
Vital Signs
Temp Pulse Resp BP Pulse Ox
97.7 F 75 23 86/56 96
07/20/24 07:25 07/20/24 14:15 07/20/24 14:15 07/20/24 14:15 07/20/24 14:02
Lab Results
07/20/24 04:31
07/20/24 04:31
Zhb-V-Ddrrugmbrfe Pept 590 pg/ml 07/13/24 12:59
Physical Exam
General: No Apparent Distress
HEENT: Moist Mucous Membranes
Respiratory: Non Labored Respirations
Cardiac: Regular Rhythm
Musculoskeletal: No Edema
Skin: Warm and Dry
Psych: Calm
Impression / Plan
-
PCP: Dr. Friedman
Dust Puller: None, initially seen by Dr. Hernandez
Impression:
Presented with hypotension
Septic shock due to C.diff colitis
Thrombocytopenia/coagulopathy
Rectal bleeding
Paroxysmal atrial fibrillation w/ RVR
Chronic amiodarone therapy
Chronic Eliquis AC
ESRD on HD MWF
Asthma
HLD
Hypotension on chronic midodrine
Echo 05/28/2024: EF 71%, mild cLVH, mild to moderate MR, aortic sclerosis without stenosis, mild TR, estimated PAP 35-40 mmHg
Plan:
-Presented with hypotension during dialysis. Admitted with septic shock due to C.diff colitis. Continue abx per ID/primary service.
-Coagulopathy noted with INR >8 2/ w/ rectal bleeding noted. GI following. Eliquis on hold. INR 5.35 on 07/20 s/p vitamin K.
-Hgb stable overall at 9.5, continue to follow closely. For repeat CT A/P w/ contrast 07/20.
-Has been maintaining SR this admission, however had episode of rapid afib / at approx 2200 for ~1 hr. Converted to SR and remains on SR this AM.
-Reviewed ECG from 07/19, Afib w/ RVR, HR 136 bpm.
-Continue amiodarone gtt, eventually transition to PO amiodarone. HR remains stable in SR.
-Remains hypotensive, on multiple pressors, midodrine. BP 86/56.
-Echo 05/28/2024 showed EF 71% with mild to moderate MR.
-Hospice nurse met w/ patient and daughter and there is consideration for transitioning to comfort care/hospice within the next few days.
HPI: Michaela is a 73 year old female with PMH of paroxysmal atrial fibrillation, ESRD on HD, asthma, HLD, and chronic hypotension. She presented to [facility] for evaluation of hypotension while at dialysis. Dialysis was not able to be completed because
of hypotension and she was sent to ER for evaluation. Despite low BPs, she was reportedly asymptomatic. She had hospitalization 04/2024 at [facility] for septic shock due to groin abscess and C.diff colitis. Subsequently was hospitalized at
05/2024 for bacteremia related to infected HD port. She noted an episode of foul smelling watery diarrhea the day prior to arrival at as well as another episode while in ER. She was admitted with septic shock due to C. diff. There has also been
concern for DIC and hematology is following. Episode of BRBPR noted, w/ INR >8.0 07/19. Eliquis placed on hold. Overnight noted to go into rapid afib for approximately 1 hour. Placed on amiodarone drip and cardiology consult placed. She spontaneously
converted to SR and remains in SR on review of telemetry 07/20.
Data Reviewed
-
EKG: Tracing Personally Visualized and interpreted
Radiology: Report Reviewed by me
Labs: Labs Reviewed by me
Old Records: Reviewed
[2024-07-20] MEDS: OMNIPAQUE 50 ML PO (16:38)
--- NOTE | 2024-07-20 17:12 | W.PN.UPDATE ---
Update Note
Progress Note Update
Seen and examined by me independently in collaboration with the medical coding auditor.
Lab data and imaging data reviewed.
Addendum as below :
Patient states she is tolerating diet without nausea. Denies any abdominal pain. Last night she had bloody bowel movements. She needed to go on vasopressin. She also went into A-fib with RVR requiring IV amiodarone.
White count is creeping up again. She looks nontoxic.
Abdomen soft and nontender with no significant distention. Bowel sounds are present.
Patient currently with toxic megacolon from severe C. difficile colitis on treatments. She has declined any surgical interventions and continues to do so today as well when i broached the topic.
She is still agreeable for obtaining a CT of the abdomen pelvis to evaluate for any worsening of toxic megacolon or development of necrosis.
Discussed with daughter at bedside regarding the changes last night and today's plan.
Discussed with ENTRY ENGINEER.
Total time spent on today's encounter was 52 minutes which included time spent in counseling the patient/family regarding diagnosis and treatment plan as listed above, goals of care, and symptom management. Case was discussed with nursing staff,
specialists, and care coordinators/case management. All labs and imaging personally reviewed by me. Remainder the time spent in detailed review of previous records, lab data, imaging, and other medical provider documentation.
--- NOTE | 2024-07-20 18:37 | PTCARENOTE ---
Pt attempting to finish all the contrast. Family visited and lifted her spirits. She is aware she will go down for CT scan sometime this evening.
--- NOTE | 2024-07-20 20:30 | PTCARENOTE ---
received pt. assessment as documented. pt taken down for CT abd, no issues during transport. pt given full CHG bath, catie care, barrier cream and desenex applied. multiple BMs so far this shift. oriented x3. generalized weakness noted. SR on
monitor. on RA, denies SOB, lungs diminished. extremities elevated on pillows. repositioned q2h. ainsley gtt off, levo gtt titrated to maintain MAP goal. amio and vaso gtts continue. call cruz within reach, care ongoing.
[2024-07-20] MEDS: FIRVANQ PO (20:38)
[2024-07-20 21:46] LABS: Glucose - Point of Care 80 mg/dl (70-99)
[2024-07-20] MEDS: MELATONIN 5 MG PO (22:34)
[2024-07-20] MEDS: CORDARONE 518 MG IV (22:34)
[2024-07-21] VITALS (57 sets, daily range): BP systolic 84–122; BP diastolic 53–85; BMI 36.1
[2024-07-21] MEDS: FIRVANQ 500 MG PO ×4 (03:09→22:40)
[2024-07-21 03:33] LABS: APTT 39.8 Sec (23.4-35.0); INR 2.89; PT 30.2 Sec (11.4-14.6)
[2024-07-21] MEDS: LEVOPHED 258 MG IV (03:42)
[2024-07-21 03:50] LABS: Blood Urea Nitrogen 11 mg/dl (7-17); Calcium 7.7 mg/dl (8.4-10.2); Carbon Dioxide 20 mmol/L (22-30); Chloride 100 mmol/L (98-107); Estimated Creatinine Clearance 38 ml/min; Glucose 95 mg/dl (70-99); Potassium 3.4 mmol/L (3.5-5.1); Sodium 130 mmol/L (135-145); eGFR 39.97
[2024-07-21 03:57] LABS: Fibrinogen 143 MG/DL (199-459)
[2024-07-21 04:03] LABS: % Basophils 0.1 % (0-2); % Eosinophils 0.3 % (0-6); % Immature Granulocytes 0.9 % (0-0.5); % Lymphocytes 16.5 % (20.5-51.1); % Monocytes 3.7 % (1.7-9.3); % Neutrophils 78.5 % (42.2-75.2); Absolute Immature Granulocytes 0.1 10^3/uL (0-0.05); Absolute Lymphocytes 2.5 10^3/uL (1.2-3.4); Absolute Monocytes 0.6 10^3/uL (0.1-0.6); Absolute Neutrophils 11.8 10^3/uL (1.4-6.5); Hematocrit 27.4 % (37.0-47.0); Hemoglobin 8.4 g/dL (12.0-16.0); Mean Corp Hgb Conc. 30.7 g/dL (33.0-37.0); Mean Corpuscular Hgb 28.8 pg (27.0-31.0); Mean Corpuscular Volume 93.8 fL (81.0-99.0); Nucleated Red Blood Cells % 0 %; Platelet Count 38 10^3/uL (130-400); Red Blood Cell Count 2.92 10^6/uL (4.20-5.40); Red Cell Dist. Width 17.4 % (11.5-14.5); White Blood Cell Count 15.1 10^3/uL (4.8-10.8)
--- NOTE | 2024-07-21 04:17 | PTCARENOTE ---
AM labs sent. pt with another burgundy loose BM, cleaned and more desenex and barrier cream applied. pt repositioned and extremities elevated. levo gtt titrated per protocol. on 2L NC. call cruz in reach.
[2024-07-21] MEDS: FLAGYL 500 MG 100 IV ×3 (04:56→21:43)
--- NOTE | 2024-07-21 05:46 | W.PN.GI.CBS2 ---
Today's Communication / Plan
-
Please see assessment and plan for details.
Assessment / Plan
-
1. GI bleeding: In the setting of supratherapeutic INR and coagulopathy, likely secondary to colitis in the setting. While her hemoglobin has drifted down, her INR has now normalized and overall she has been feeling well, likely old blood. There
still could be some component of hemolysis/coagulopathy, and would continue per hematology. There is no role for GI intervention at this time, and would continue supportive care.
2. C. difficile: With concern previously for megacolon, the repeat CT scan yesterday did not have any suggestion of megacolon or ileus. Her exam is benign, white count and pressors are improving. Would continue per infectious disease and
supportive care.
Unfortunately not much more to add from a GI standpoint. Will sign off for now, please call back with any further questions.
Subjective
Subjective
Date of Service: July 21, 2024
Patient continues to feel well, no abdominal pain, no nausea or vomiting. Pressures are less. No fevers or chills overnight. Patient with few loose stools overnight, gelatinous and burgundy color per nursing.
Objective
Data Reviewed
Laboratory Data:
Laboratory Results
07/21/24 03:14
07/21/24 03:14
Laboratory Results
PT 30.2 Sec (11.4-14.6) H 07/21/24 03:14
INR 2.89 D 07/21/24 03:14
APTT 39.8 Sec (23.4-35.0) H 07/21/24 03:14
Phosphorus 4.0 mg/dl (2.5-4.5) 07/19/24 04:44
Magnesium 2.3 mg/dl (1.6-2.3) 07/18/24 05:04
Total Bilirubin 1.2 mg/dl (0.2-1.3) 07/19/24 11:18
AST 59 U/L (14-36) H 07/19/24 11:18
ALT 25 U/L (0-35) 07/19/24 11:18
Alkaline Phosphatase 269 U/L (38-126) H 07/19/24 11:18
Vital Signs and I&O:
Vital Signs
Temp Pulse Resp BP Pulse Ox
97.9 F 74 10 107/73 96
07/21/24 03:45 07/21/24 05:15 07/21/24 05:15 07/21/24 05:00 07/21/24 03:45
I&O
07/19/24 07/20/24 07/21/24
06:59 06:59 06:59
Intake Total 961.8 / 974.9 1731.0 / 1731.0
Output Total 200 / 200
Balance 761.8 / 774.9 1731.0 / 1731.0
Physical Exam
Physical Exam
General: NAD
Abdomen: normal bowel sounds, soft, no tenderness, no masses or bruits, no ascites
[2024-07-21] MEDS: SYMBICORT 160/4.5 MCG INHALER 2 PUFF INH ×2 (07:55→19:33)
--- NOTE | 2024-07-21 08:29 | W.PN.HOSP.TC ---
Addendum entered and electronically signed by Sorin Rizvi MD 07/21/24 16:25:
Seen and examined by me independently in collaboration with the medical record consultant.
Lab data and imaging data reviewed.
Addendum as below :
Patient able to tolerate diet without nausea vomiting or abdominal pain. Patient with still some bright red rectal bleeding episodes. Abdomen soft.
CT of the abdomen pelvis shows colitis but no more megacolon or pneumatosis coli or other signs of necrosis of the cath. I feel the C. difficile colitis may be getting better. Continue with C. difficile treatments.
Patient still with positive DIC panel and also CT of the abdomen pelvis showed spleen possible infarcts. With ongoing bleeding and suspected thrombosis will give her platelets and as well as FFP and follow closely. Hematology following.
Patient has generalized fluid overload. Discussed with nephrology who is going to attempt CRRT today.
Discussed with DIRECTOR PRIVATE
Discussed with hematology
Total time spent on today's encounter was 52 minutes which included time spent in counseling the patient/family regarding diagnosis and treatment plan as listed above, goals of care, and symptom management. Case was discussed with nursing staff,
specialists, and care coordinators/case management. All labs and imaging personally reviewed by me. Remainder the time spent in detailed review of previous records, lab data, imaging, and other medical provider documentation.
Original Note:
Today's Communication/Plan
-
Continue antibiotics
Wean pressors as able
H&H -- consider PRBC transfusion if Hgb<8 or plt<20
Replete potassium
Assessment / Plan
Assessment / Plan
73 y/o female with h/o ESRD on HD and recent hospitalizations presenting with:
# Septic shock POA, likely 2/2 C. Diff
- Norovirus neg, stool culture negative
- Leukocytosis, white count now downtrending, 15.0 today
- On Ta and vasopressin, pressor needs decreasing
- Continue to wean pressors as able
- Lactic acid, ammonia normal
- Normal bowel sounds, abdomen non tender
- C. Diff positive, Fulminant, second episode
- Abdominal x-ray (07/14): dilated transverse colon to 7.4 cm with wall thickness, no free air --> Abd/pelvis Ct with IV/oral contrast: moderate pancolitis, small splenic infarcts, mild ascites, bilateral pleural effusion, mild left renal atrophy,
hepatic fatty infiltration, severe volume overload or third spacing.
- Toxic megacolon? Afebrile, hr <120, white count 15, anemia
- Blood Cx no growth
- ID following - continue oral vancomycin 500 QID, IV metronidazole 500 Q8hr and eravacycline 75 IV BID
- Colorectal surgery following peripherally - discussed treatment options including surgery (i.e.�subtotal colectomy with end ileostomy) and continued nonoperative measures
- Patient and family declined surgery
- Discussed plans with daughter at bedside
- Continue diet
- Patient still having bloody stools. Abd/pelvis CT: moderate pancolitis, small splenic infarcts, mild ascites, bilateral pleural effusion, mild left renal atrophy, hepatic fatty infiltration, severe volume overload or third spacing.
# Hypotension likely volume depleted 2/2 diarrhea and dialysis
- on Ta and vasopressin now, titrate to keep MAP>65, pressor needs decreasing
- Continue to hold IV fluids
- Continue midodrine 10 tid
- Status post albumin x2
- Dialysis per nephro
# Thrombocytopenia and coagulopathy
- Plts continue to drop, 38 today -- held Eliquis -- will consider plt transfusion with plt <20
- Patient continues to have bloody bowel movements
- INR, PTT elevated, fibrinogen low -- unclear if PTT, INR are reliable given patient is on Eliquis
- Hematology following -- suspicion for MAHA/TMA -- recommended vitamin K 10 mg oral, LDH wnl, haptoglobin pending, transfuse for hemoglobin less than 8 with bleed, platelets less than 20K -- If ongoing bleeding symptoms recommend FFP
- Gastroenterology consulted -- factors pending
- Unclear etiology, medication related vs toxic megacolon?
- It does not appear that Eliquis has any interaction with C. Diff meds -- held Eliquis
- Eravacycline adverse effects include prolonged PTT
- Will monitor Hgb -- down to 8.4 today -- consider PRBC 1 unit
- Maintain active Type and Screen
- Splenic infarcts can possibly explain coagulopathy
# QTc prolongation
- Continue Zofran 4 for now
- Check EKG and electrolytes daily
- Continue to monitor
# Hypokalemia and hypophosphatemia
- Replete K and Phos as needed
# Hypoalbuminemia
- Status post albumin x2
- Improving, albumin 2.3 today
- Nephrology following
# Hypocalcemia
- Now resolved
# Hyponatremia
- Nephrology following
- Stable
# Paroxysmal Afib
- Hold Eliquis
- Continue amiodarone
- Patient had Afib with RVR last night, transitioned to amio drip, converted to sinus
- Currently in sinus rhythm
- Cardiology consulted
# ESRD on HD
- Nephrology following
- HD pre nephro, plan for not pursuing aggressive fluid removal
# Asthma
- PO home meds held
# Anemia, chronic
- Stable
# Hypomagnesemia likely 2/2 diarrhea
- Repleted as needed
Code status: DNR
DVT prophylaxis: Eliquis
Anticipated Discharge: > 48 hours
Subjective/Interval History
-
Date of Service: July 21, 2024
Objective Data
-
Labs:
Laboratory Results
07/21/24 07/21/24
03:14 10:00
WBC 15.1 H
Hgb 8.4 L Cancelled
Hct 27.4 L Cancelled
Plt Count 38 L D
PT 30.2 H
INR 2.89 D
APTT 39.8 H
Sodium 130 L
Potassium 3.4 L
Chloride 100
Carbon Dioxide 20 L
BUN 11
Creatinine 1.4 H
Glucose 95
Calcium 7.7 L
Vital Signs:
Vital Signs
Temp Pulse Resp BP Pulse Ox
97.9 F 78 16 101/67 100
07/21/24 03:45 07/21/24 08:00 07/21/24 08:00 07/21/24 07:30 07/21/24 08:00
I&O
07/20/24 07/21/24 07/22/24
06:59 06:59 06:59
Intake Total 1768.0 / 1805.0 37.0 / 37.0
Balance 1768.0 / 1805.0 37.0 / 37.0
Review of Systems
-
History Source: Patient
Constitutional: Reports No Symptoms
EENT: Reports No Symptoms Reported
Respiratory: Reports No Symptoms
Cardiac: Reports No Symptoms
Abdomen/GI: Reports Diarrhea
Breast: Reports No Symptoms
Genitourinary: Reports No Symptoms
Musculoskeletal: Reports No Symptoms
Skin: Reports No Symptoms
Neuro: Reports No Symptoms
Endocrine: Reports No Symptoms
Hematologic / Lymphatic: Reports No Symptoms
Physical Exam
-
General: Well Developed, Well Nourished, No Apparent Distress and Comfortable
HEENT: Normocephalic
Respiratory: Clear to Auscultation
Cardiac: Regular Rhythm and S1/S2
GI: Soft, Nontender, Normal Bowel Sounds and Distended
Genito-urinary: No Costovertebral Tender
Musculoskeletal: No Clubbing, No Cyanosis, Edema, Right Lower Extrem and Edema, Left Lower Extrem
Skin: Warm
Neuro: Awake, Alert and Oriented
Hematologic / Lymphatic: No Lymphadenopathy
Psych: Calm
[2024-07-21 08:38] LABS: Glucose - Point of Care 95 mg/dl (70-99)
--- NOTE | 2024-07-21 08:52 | W.PN.NEPH.PH ---
Today's Communication / Plan
-
CRRT to be initiated
Assessment/Plan
-
Assessment:
POssible sepsis
Hypotension
C diff diarrhea
Recent Enterobacter bacteremia/GNR - Panresistant-completed abx on 06/19
Hypotension on midodrine
ESRD on HD-MWF through [facility]
Anemia
h/o GIB
Chronic hypoxic respiratory insufficiency
h/o urinary retention
parox a-fib
hyperlipidemia
Hx c-diff colitis
osteoarthritis
Chronic wounds
Hypoantremia
Plan:
UF has been negligible, limited on dialysis due to hemodynamic instability in setting of C. difficile colitis
Weights remains hemodynamically unstable, now with blood product requirements in setting of DIC and worsening anemia
wean pressors as able to keep MAP > 65, currently on 2 pressor support
Patient will require CRRT orders were provided
abx per ID
Patient has decided against surgery
generalized edema likely from severe hypoalbuminemia
hyponatremia is dilutional
K repletion prn
coagulopathy-heme follows
group home prognosis is poor
Patient critically ill with ongoing pressor requirement in setting of fulminant C. difficile with hemodynamic collapse, and now for CRRT requirement
d/w nursing
critical care time 31 minutes
-
-
Date of Service: July 21, 2024
CC / HPI / ROS
-
Chief Complaint:
ESRD
History of Present Illness:
Na 130
on 3 antibiotic therapy for C diff
Anemia and thrombocytopenia worsening
on pressors for hypotension
critically ill in ICU
wt is significantly high
Review of Systems:
no cp or sob at rest
soft stools
Weights rising
Labs
-
Labs:
WBC 15.1 10^3/uL (4.8-10.8) H 07/21/24 03:14
RBC 2.92 10^6/uL (4.20-5.40) L 07/21/24 03:14
Hgb Cancelled 07/21/24 10:00
Hct Cancelled 07/21/24 10:00
Plt Count 38 10^3/uL (130-400) L D 07/21/24 03:14
Sodium 130 mmol/L (135-145) L 07/21/24 03:14
Potassium 3.4 mmol/L (3.5-5.1) L 07/21/24 03:14
Chloride 100 mmol/L (98-107) 07/21/24 03:14
Carbon Dioxide 20 mmol/L (22-30) L 07/21/24 03:14
BUN 11 mg/dl (7-17) 07/21/24 03:14
Creatinine 1.4 mg/dL (0.6-1.0) H 07/21/24 03:14
eGFR 39.97 07/21/24 03:14
Glucose 95 mg/dl (70-99) 07/21/24 03:14
Calcium 7.7 mg/dl (8.4-10.2) L 07/21/24 03:14
Phosphorus 4.0 mg/dl (2.5-4.5) 07/19/24 04:44
Hvy-J-Qdelcanejij Pept 590 pg/ml 07/13/24 12:59
Albumin 2.3 g/dl (3.5-5.0) L 07/19/24 11:18
Physical Exam
-
Vital Signs:
Vital Signs
Temp Pulse Resp BP Pulse Ox
97.9 F 78 16 101/67 100
07/21/24 03:45 07/21/24 08:00 07/21/24 08:00 07/21/24 07:30 07/21/24 08:00
Cardiovascular:: Regular rate and rhythm
Respiratory:: Bilateral: CTA (anteriorly)
Lung Excursion:: Normal
Abdomen:: Distended, Nontender and Soft
Bowel Sounds:: Normal
Extremity Edema:: +2: Bilateral:
Griffiths Catheter: No
--- NOTE | 2024-07-21 09:11 | W.PN.ID1 ---
Date of Service
Date of Service: July 21, 2024
Today's Communication
Pt is considering transitioning to hospice tomorrow, I would support her decision.
Ct with colitis as expected, wonder if ischemic colitis is playing a role as well as C diff
blood cultures x2
eravacycline is broad spectrum, continue maximal medical therapy for CDI.
Assessment / Plan
Fulminant C difficile
Septic Shock
Switched to CRRT
- no new focal symptoms, would hold with the current broad spectrum therapy with the eravacycline for the moment
- CT with pancolitis, no e/o megacolon; ischemic colitis may be contributing
- continue oral vancomycin 500 mg PO QID, IV metronidazole 500 mg IV Q8 hours
- c/w eravacycline 1 mg/kg iv q12 - salvage therapy
- patient has refused colostomy, if she progresses to colonic rupture, then we have discussed hospice and she would agree with transitioning. I do feel it is reasonable to continue pursuing maximal medical management at this moment. She is
considering transitioning to hospice tomorrow, I would support her decision.
- has been approved for outpatient fecal transplant
Patient is critically ill on pressors with improvement, follow pressor requirements, cbc and physical exam.
Chief Complaint
-: C-diff (fulminant) and Other (septic shock)
Subjective / Review of Systems
afebrile
continues with a pressor requirement - weaning
wbc count improved
hgb dropped a point over night
plt further declined
switched to CRRT
CT a/p with IV and oral contrast: Moderate pancolitis, new splenic infarctions noted, progressed ascites,
Vital Signs / Physical Exam
Vital Signs
Vital Signs
Temp Pulse Resp BP Pulse Ox
96.6 F L 78 16 101/67 100
07/21/24 07:30 07/21/24 08:00 07/21/24 08:00 07/21/24 07:30 07/21/24 08:00
Physical Exam
Constitutional: Acutely Ill and Chronically Ill
Cardiovascular: Regular Rate and S1/S2; Negative Murmur or Rub
Pulmonary: Clear and Symmetric; Negative Wheezes or Rales
Gastrointestinal: Soft, Non Tender, Non Distended and Normal Bowel Sounds
Skin: Warm and Dry; Negative Rash or Jaundice
Objective Data
Lab Data
Lab Results
07/21/24 10:00
07/21/24 03:14
PT 30.2 Sec (11.4-14.6) H 07/21/24 03:14
INR 2.89 D 07/21/24 03:14
APTT 39.8 Sec (23.4-35.0) H 07/21/24 03:14
Estimated Creat Clear 38 ml/min 07/21/24 03:14
Lactic Acid 1.2 mmol/L (0.7-2.0) 07/19/24 11:18
Total Bilirubin 1.2 mg/dl (0.2-1.3) 07/19/24 11:18
AST 59 U/L (14-36) H 07/19/24 11:18
ALT 25 U/L (0-35) 07/19/24 11:18
Alkaline Phosphatase 269 U/L (38-126) H 07/19/24 11:18
C-Reactive Protein 200.30 mg/L (0.0-10.00) H 07/13/24 11:18
Most recent labs reviewed.
Micro Results:
07/14/24 12:48 Blood Culture - Final
Blood/Venous No Growth - Final Report
07/13/24 15:58 Blood Culture - Final
Blood/Venous No Growth - Final Report
07/14/24 02:10 Salmonella/Shigella Culture - Final
Feces/Stool No Salmonella, Shigella, Aeromonas or Plesiomonas species
isolated.
Campylobacter Culture - Final
No Campylobacter species isolated.
Shiga Toxin Test - Final
No E. coli Shiga Toxin 1 or 2 detected.
07/14/24 06:18 MRSA Screen - Final
Nose Staph aureus MRSA
07/14/24 02:10 C. difficile GDH Antigen & Toxins - Final
Feces/Stool Toxigenic C.difficile Positive
- Final
Negative for Norovirus GI and GII.
--- NOTE | 2024-07-21 09:13 | W.PN.INTV ---
Today's Communication / Plan
Recommendations
Transfuse platelets and packed RBC transfusion
replete electrolytes
Start CRRT after nephro consultation
Wean off vasopressors as able
Follow clotting factors and haptoglobin levels
Counseled patient about the prognosis of condition
Condition remains critical
Assessment
-
Impression
Patient is a 73-year-old female, past medical history of end-stage renal disease hemodialysis dependent, paroxysmal atrial fibrillation, C. difficile in the past, recently discharged from [facility] on June 22 after receiving
broad-spectrum antibiotics for 2 weeks for hemodialysis catheter related infection. At that time received fluconazole for intertrigo, valacyclovir for shingles, oral vancomycin for C. difficile. Now presented with foul-smelling diarrhea for 2 days
and progressive septic shock including, low blood pressures, elevated WBC count, vasopressor dependence.
Evidence of C. difficile colitis on abdominal x-ray, transverse colon 7.4 cm with the loss of haustrations.
Reason for ICU admission:progressively worsening condition, increased amount of vasopressors, WBC count worsening.
On oral vancomycin, IV metronidazole and IV eravacyclin.
Patient opted for nonoperative management
Currently being evaluated for coagulopathy, decreased fibrinogen decreased platelet, increased PT/INR, decreased hemoglobin, increased D-dimers, no oozing of blood, had a bowel movement with blood on July 19, 2024, GI consulted-advised
coagulopathy workup including factor V, factor VIII, and factor VII assay, hematology following-hemolysis panel is pending
Hemoglobin dropped to 8.4 from 9.5, platelet count dropped to 38 from 57
Now on 1 L of oxygen, on vasopressors vasopressin 0.03 and norepinephrine at 4 mcg/min
Assessment
Septic shock secondary to C. difficile colitis
Transverse megacolon secondary to C. difficile?
Paroxysmal atrial fibrillation
End-stage renal disease
Hypokalemia
Hypomagnesemia
Thrombocytopenia
Coagulopathy-Decreased fibrinogen, elevated INR
Plan/recommendations
Septic shock secondary to C. difficile colitis
Toxigenic C. difficile positive,MRSA positive--Hypotensive, vasopressor dependence, currently on norepinephrine 4 mcg/min, vasopressin 0.03 and midodrine 10 mg 3 times a day
Leukocytosis-trending down, ID is following
On oral vancomycin, IV metronidazole, and IV eravacyclin as per ID (salvage therapy)-for toxigenic C. difficile on stool culture
Patient opted for nonoperative management-ID considering oral fecal transplant on outpatient basis-not available inpatient -paperwork started as it takes a long time
Sepsis resulting in coagulopathy now, DIC workup ongoing, platelet count dropped to 38 and hemoglobin dropped to 8.4, decreased fibrinogen
Repeat CT abdomen-Severe third spacing of fluid and pancolitis along with splenic infarcts
splenic infarcts-Cause of coagulopathy, CRRT for third spacing of fluids,Pancolitis-manage conservatively,as patient denied surgery
Transverse megacolon secondary to C. difficile?
Abdominal x-ray done on 07/14/2024 suggest mild gaseous dilatation of transverse colon, with maximum diameter of 7.4 cm. Suggestion of wall thickening involving transverse colon, suggesting colitis
Colorectal surgery consult appreciated-no longer on vancomycin enemas -gave the patient option of subtotal colectomy with ileostomy-Patient declined surgery
On regular diet, poor appetite, consuming only 15 to 30% of food
Paroxysmal atrial fibrillation
On amiodarone infusion at 0.5 mcg/kg/min, Eliquis on hold due to underlying coagulopathy
INR, fibrinogen noted-Received 1 dose of vitamin K on Jul 18, 2024
Primary service to review medications, potential interactions
Hematology following
Reviewed at length with patient and family members pathophysiology of possible DIC
End-stage renal disease
Nephro considering continuous renal replacement therapy to help with the severe third spacing of fluid
Received to albumin boluses, albumin 2.3 today
Hypokalemia-Replete as needed
Hypomagnesemia-Replete as needed
Hyponatremia
Continue to monitor
Normal serum osmolality
Coagulopathy/thrombocytopenia
Coagulopathy-Decreased fibrinogen, elevated INR
GI consult appreciated-suggested uremia, liver dysfunction and autoimmune causes for the bleeding
Factor V, VII and VIII pending
Hemolysis panel pending-reticulocyte count less than 2, hemolysis less likely
Patient due for dialysis today-although urea levels not increase enough to suggest uremic coagulopathy
Heme consult appreciated-continue to monitor platelet count and coagulation profile-keep platelet count greater than 50K- plan to transfuse plasma and platelets today
Keep MAP greater than 65
Keep potassium greater than 4 and magnesium greater than 2
Supplemental oxygen as needed
Keep platelet count greater than 50K
Keep hemoglobin greater than 8
DVT prophylaxis-Eliquis
CODE STATUS-DNR
Subjective Dataa
Subjective Data
Date of Service:
Date of Service: July 21, 2024
Chief Complaint: Nuclear Reactor Technician Follow Up and Pulmonary Follow Up
Subjective:
Patient's condition remains critical
Continues to have blood in stool, hemoglobin dropping, platelet count dropping
On vasopressors with norepinephrine at 4 mcg/min and vasopressin 0.03 units
Fluid boluses given as needed, albumin boluses as needed, received 12.5 g of albumin yesterday during dialysis
CT abdomen repeated yesterday-pancolitis, bilateral pleural effusion, mild abdominopelvic ascites, severe third spacing of fluid
Patient continues to decline surgery
Consuming 15 to 30% of daily diet
Subjectively patient feels better, abdominal exam benign and patient is breathing on 1 L of oxygen
Review of Systems
General: Other (Reviewed and negative)
Objective Data
Data Reviewed
Vital Signs / I&O / Oxygen:
Vital Signs
Temp Pulse Resp BP Pulse Ox
96.6 F L 78 16 101/67 100
07/21/24 07:30 07/21/24 08:00 07/21/24 08:00 07/21/24 07:30 07/21/24 08:00
Intake and Output
07/20/24 07/21/24 07/22/24
06:59 06:59 06:59
Intake Total 1768.0 / 1805.0 37.0 / 37.0
Balance 1768.0 / 1805.0 37.0 / 37.0
SaO2 100
Nasal Cannula flow liters per 2
minute
Physical Exam
General: Comfortable and Other (Breathing on 1 L of oxygen, conversant, actively participating in her management plan, subjectively feels better)
HEENT: Normocephalic and Anicteric
Cardiovascular: S1-S2, Regular Rhythm and Peripheral Edema (Generalized body edema )
Respiratory: Non-Labored Respirations and Other (Bilateral decreased breath sound at bases)
GI: Soft, Distended, Non Tender and Normal Bowel Sounds
Neurology: Awake, Alert and No Motor Deficits
Skin: Warm, Dry and Good Color
Labs/Micro/Reports
Lab Data
07/21/24 10:00
07/21/24 03:14
Laboratory Results
07/21/24
03:14
PT 30.2 H
INR 2.89 D
APTT 39.8 H
Microbiology
07/14/24 12:48 Blood/Venous Blood Culture - Final
No Growth - Final Report
07/13/24 15:58 Blood/Venous Blood Culture - Final
No Growth - Final Report
--- NOTE | 2024-07-21 09:56 | PN.CDI ---
CDI
- -
CDI:
Physician Documentation Request
Admit Date: 07/13/24 18:05
Dear Doctor Dmitri/ Resident,
Please review the following and provide your response in the progress notes.
Clinical Indicators:
Pt admitted with Septic shock 2/2 Cdiff /Megacolon
Documented per H&P, 'ESRD on HD....Anemia, chronic...'
Update note 07/20 ,' Last night she had bloody bowel movements. ...'
GI progress note 07/21, ' GI bleeding: In the setting of supratherapeutic INR and coagulopathy, likely secondary to colitis in the setting. While her hemoglobin has drifted down...Patient with few loose stools overnight, gelatinous and burgundy
color per nursing.....'
Progress note 07/21, ' H&H -- consider PRBC transfusion if Hgb<8 or plt<20.... Will monitor Hgb -- down to 8.4 today -- consider PRBC 1 unit.....'
07/13/24 07/14/24 07/18/24
11:18 19:17 05:04
Hgb 12.1 12.6 9.5 L
07/19/24 07/20/24 07/21/24
14:38 04:31 03:14
Hgb 10.0 L 9.5 L 8.4 L
Based on the above, could you clarify, in your progress note, which of the following is the most likely type of anemia you are evaluating, monitoring and/or treating?
Acute blood loss anemia with baseline chronic anemia (Specify type)
Anemia of Chronic disease only ( please specify type)
Other ( please specify)
Use of terms such as suspected, likely, concern for, or probable (associated with a specific diagnosis that is being evaluated, monitored, or treated as if it exists) are acceptable and can be coded in the inpatient setting, when documented at the
time of discharge.
Thank you,
Mariana Taylor RN
CDI Specialist
[place] [facility]
Please use your independent medical judgment in providing your response.
[2024-07-21] MEDS: XERAVA 257.5 MG IV ×2 (09:59→20:16)
--- NOTE | 2024-07-21 10:07 | PN.CDI ---
CDI
- -
CDI:
Physician Documentation Request
Admit Date: 07/13/24 18:05
Dear Doctor Dmitri/Resident,
Please review the following and provide your response in the progress notes.
Clinical Indicators:
Pt admitted with Septic shock 2/2 Cdiff /Megacolon
Wound care note 07/16 ,' Patient admitted with: healing stage 2 pressure injury along with MASD L buttocks ulcers. Sacral/buttocks/posterior upper thigh MASD...'
Physician documentation of the type and location of wounds is required for compliant documentation. Based on the above clinical findings and your assessment, please provide the following in your progress note:
1. Location of the ulcer/wound, including laterality.
2. Type (etiology) of ulcer/wound:
- Pressure (decubitus) ulcer
- Non-pressure ulcer
- Other
Use of terms such as suspected, likely, concern for, or probable (associated with a specific diagnosis that is being evaluated, monitored, or treated as if it exists) are acceptable and can be coded in the inpatient setting, when documented at the
time of discharge.
Thank you,
Mariana Taylor RN
CDI Specialist
[place] [employer]
Please use your independent medical judgment in providing your response.
*Source: National Pressure Ulcer Advisory Panel (NPUAP)
[2024-07-21] MEDS: ROCALTROL 0.25 MCG PO (10:27)
[2024-07-21] MEDS: ProAmatine 10 MG PO ×3 (10:27→16:11)
[2024-07-21] MEDS: DESENEX/MITRAZOL/ZEASORB 1 APPLIC TOPICAL ×3 (10:28→22:40)
--- NOTE | 2024-07-21 10:32 | W.PN.ONC ---
Today's Communication / Plan
-
Coags are improving off Eliquis
With rectal bleeding, agree w/ plans for FFP and platelet transfusion. Vit k 10mg given 07/19.
CBC daily. transfuse for hgb < 8.0 g/dl w/ bleed, plts < 20K and/or bleeding
Supportive care per primary team, nephrology, ID
Impression
Impression
- coagulopathy, secondary to Eliquis, sepsis
- C diff colitis, with some rectal bleeding (dark blood, per RN)
- hypotension
- afib on eliquis
- ESRD on HD
Plan
Plan
Coags are improving off Eliquis
With rectal bleeding, agree w/ plans for FFP and platelet transfusion. Vit k 10mg given 07/19.
CBC daily. transfuse for hgb < 8.0 g/dl w/ bleed, plts < 20K and/or bleeding
Supportive care per primary team, nephrology, ID
Subjective/Objective
Subjective/Objective
no new complaints, some rectal bleeding, dark blood per RN
Vital Signs:
Vital Signs
Temp Pulse Resp BP Pulse Ox
96.6 F L 88 16 102/70 100
07/21/24 07:30 07/21/24 10:27 07/21/24 08:00 07/21/24 10:27 07/21/24 08:00
Lab Results:
Laboratory Data
WBC 15.1 10^3/uL (4.8-10.8) H 07/21/24 03:14
Hgb Cancelled 07/21/24 10:00
Plt Count 38 10^3/uL (130-400) L D 07/21/24 03:14
PT 30.2 Sec (11.4-14.6) H 07/21/24 03:14
INR 2.89 D 07/21/24 03:14
APTT 39.8 Sec (23.4-35.0) H 07/21/24 03:14
eGFR 39.97 07/21/24 03:14
[2024-07-21] MEDS: PITRESSIN 100 IV ×2 (10:59→21:43)
[2024-07-21] MEDS: NEURONTIN 100 MG PO (11:30)
[2024-07-21 11:53] LABS: Glucose - Point of Care 117 mg/dl (70-99)
--- NOTE | 2024-07-21 13:07 | CM ---
CM following re: discharge planning.
Discussed in Rounds, reviewed pt's chart, met with pt and pt's daughter at bedside.
rehabilitation liaison following and rehabilitation liaison will meet with pt and her daughter on Saturday to discuss a plan of care. Per rehabilitation liaison, a plan is to stop HD treatment on Saturday and pursue comfort care.
D/C plan: inpatient hospice vs home hospice in a SNF/[facility] or [place] hospice facility. Daughter is very involved and is aware of a possible plan for inpatient hospice and daughter is working on alternative plan: hospice at SNF/[facility] or [place]
hospice facility.
CM will follow with discharge plan updates as hospitalization progresses
--- NOTE | 2024-07-21 13:15 | PTCARENOTE ---
Nausea, clear emesis. Zofran administered with resolution of symptoms. Incontinent of bowel and bladder. Complete perineal care provided. Calazime to periarea. Repositioned for comfort.
[2024-07-21] MEDS: ZOFRAN 4 MG IV (13:18)
--- NOTE | 2024-07-21 13:23 | W.PN.CARDCBS ---
Addendum entered and electronically signed by Eugene Hernandez MD 07/21/24 19:03:
73-year-old woman admitted with fulminant C. difficile infection and septic shock on July 13. She has a history of paroxysmal atrial fibrillation and On July 20 had recurrent A-fib. She was placed on IV amiodarone. Now in sinus rhythm. No
history of atrial fibrillation prior to April 2024 at the time of extensive admission for groin abscess and C. difficile colitis with sepsis
Now on CRRT
PMH/PSH: RENATO progressing to hemodialysis April 2024 following admission for groin abscess and C. difficile colitis with sepsis. Enterobacter bacteremia with infected hemodialysis port May and June 2023 and , history of PAF,
hypertension, hypercholesterolemia, left hip replacement
Medications: Norepinephrine, vasopressinAlbuterol as needed, Flagyl, B12, iron, folic acid, Neurontin, melatonin, Symbicort, Singulair on hold, rosuvastatin 5 mg a day, midodrine 10 3 times daily, vancomycin, eravacycline, apixaban on hold, IV
amiodarone
94/69, pulse 78, sinus rhythm, respirate 22, afebrile, lungs relatively clear, regular rate and rhythm,, Not in acute distress when examined lungs relatively clear, regular rate and rhythm, Not much edema, daughter at bedside
Hemoglobin 8.4, white count 15.1, platelets 38, INR 2.89, bicarbonate 20
CT of abdomen and pelvis: Small pleural effusions, fatty liver, hypodense splenic lesions up to 3.3 cm, evidence of colitis, small amount of ascites, third spacing
Impression:
C. difficile enterocolitis with pancolitis
Paroxysmal atrial fibrillation, now sinus rhythm on amiodarone
Septic shock
Coagulopathy
Multisystem organ failure
Paroxysmal atrial fibrillation
End-stage renal disease
Hypertension
Hyperlipidemia
Plan:
She is in sinus rhythm on IV amiodarone, will convert to oral amiodarone
At the time of evaluation, decision was made not to pursue hospice, but it seems that clinical status continues to deteriorate and she is now on CRRT.
She remains on vasopressin, norepinephrine, and midodrine. These have been renewed
She still has a coagulopathy, would continue to hold anticoagulation.
Prognosis is very poor. Will continue to follow as patient and family work through goals of care and level of care.
Original Note:
Today's Communication / Plan
-
transition IV to po amiodarone 200mg TID
eliquis on hold
CRRT to start today
plan for hospice in AM - inpatient vs outpatient
Impression / Plan
-
PCP: Dr. Friedman
Music Critic: None, initially seen by Dr. Hernandez
Impression:
Presented with hypotension
Septic shock due to C.diff colitis
Thrombocytopenia/coagulopathy
Rectal bleeding
Paroxysmal atrial fibrillation w/ RVR
Chronic amiodarone therapy
Chronic Eliquis AC
ESRD on HD MWF
Asthma
HLD
Hypotension on chronic midodrine
Echo 05/28/2024: EF 71%, mild cLVH, mild to moderate MR, aortic sclerosis without stenosis, mild TR, estimated PAP 35-40 mmHg
Plan:
-Presented with hypotension during dialysis. Admitted with septic shock due to C.diff colitis. Continue abx per ID/primary service.
-she does not want surgical colostomy
-eliquis on hold due to INR>8 on presentation with rectal bleeding as well as platelets down to 38K today. INR 2.89 on 07/21
-Had episode of rapid afib 2/2 at approx 2200 for ~1 hr. Spontaneously converted to SR and remains in SR on review of tele
-transition amio gtt to PO amiodarone 200mg TID today. of note, remains with significant nausea/abd pain so po intake may be limited
-Remains hypotensive. on vasopressin, midodrine.
-for CRRT to start today
-Echo 05/28/2024 showed EF 71% with mild to moderate MR.
-plan is for transition to inpatient vs outpatient hospice tomorrow. DNR code status. d/w CM
-d/w nursing
HPI: Michaela is a 73 year old female with PMH of paroxysmal atrial fibrillation, ESRD on HD, asthma, HLD, and chronic hypotension. She [facility] to [facility] for evaluation of hypotension while at dialysis. Dialysis was not able to be completed because
of hypotension and she was sent to ER for evaluation. Despite low BPs, she was reportedly asymptomatic. She had hospitalization 04/2024 at [facility] for septic shock due to groin abscess and C.diff colitis. Subsequently was hospitalized at
05/2024 for bacteremia related to infected HD port. She noted an episode of foul smelling watery diarrhea the day prior to arrival at as well as another episode while in ER. She was admitted with septic shock due to C. diff. There has also been
concern for DIC and hematology is following. Episode of BRBPR noted, w/ INR >8.0 07/19. Eliquis placed on hold. Overnight noted to go into rapid afib for approximately 1 hour. Placed on amiodarone drip and cardiology consult placed. She spontaneously
converted to SR and remains in SR on review of telemetry 07/20.
Progress Note - Music Critic
Subjective
Date of Service: July 21, 2024
remains with abd discomfort, nausea. denies CP, SOB, palpitations.
Objective
Labs:
07/21/24 10:00
07/21/24 03:14
Labs
Hgb Cancelled 07/21/24 10:00
Hct Cancelled 07/21/24 10:00
Plt Count 38 10^3/uL (130-400) L D 07/21/24 03:14
PT 30.2 Sec (11.4-14.6) H 07/21/24 03:14
INR 2.89 D 07/21/24 03:14
APTT 39.8 Sec (23.4-35.0) H 07/21/24 03:14
Sodium 130 mmol/L (135-145) L 07/21/24 03:14
Potassium 3.4 mmol/L (3.5-5.1) L 07/21/24 03:14
BUN 11 mg/dl (7-17) 07/21/24 03:14
Creatinine 1.4 mg/dL (0.6-1.0) H 07/21/24 03:14
Glucose 95 mg/dl (70-99) 07/21/24 03:14
Vital Signs and I&O:
Vital Signs
Temp Pulse Resp BP Pulse Ox
98 F 80 23 100/63 97
07/21/24 13:12 07/21/24 13:13 07/21/24 13:00 07/21/24 13:13 07/21/24 13:12
Vital Signs
Temp Pulse Resp BP Pulse Ox
98 F 80 23 100/63 97
07/21/24 13:12 07/21/24 13:13 07/21/24 13:00 07/21/24 13:13 07/21/24 13:12
Intake & Output
07/19/24 07/20/24 07/21/24 07/22/24
07:59 07:59 07:59 07:59
Intake Total 963.6 / 976.7 1723.0 / 1763.7 1019.1 / 1019.1
Output Total 200 / 200
Balance 763.6 / 776.7 1723.0 / 1763.7 1019.1 / 1019.1
Physical Exam
Physical Exam
GEN: No distress, awake, alert, oriented x3
HEENT: supple, anicteric, mmm, eomi
LUNGS: no audible wheezes
CV: Reg rhythm
NEURO: Gross non-focal
SKIN: Warm, pink, dry. No rash. Ecchymoses of B/L hands
[2024-07-21] MEDS: PACERONE 200 MG PO ×3 (14:17→22:40)
--- NOTE | 2024-07-21 14:35 | PTCARENOTE ---
Oral Amiodarone dose administered as ordered. Amiodarone drip off. CRRT/CVVHD initiated as ordered for hourly negative fluid balance.
[2024-07-21] MEDS: RFP-401 HD Soln (K+ 4 mEq/L) 15000 ML CRRT-IRR ×2 (14:38→22:43)
--- NOTE | 2024-07-21 15:08 | PTCARENOTE ---
Provided update to Mendy Francisco and Jeni regarding current drips, latest BP and that CRRT has been started. Will taper Vasopressin as ordered. Pt and her daughter are aware of the plan of care.
--- NOTE | 2024-07-21 15:53 | PTCARENOTE ---
rinsed mouth with water
[2024-07-21 16:10] LABS: Glucose - Point of Care 89 mg/dl (70-99)
--- NOTE | 2024-07-21 16:45 | PTCARENOTE ---
Clarified Vasopressin taper orders. Will taper Vasopressin for SBP>90mmHg as ordered.
--- NOTE | 2024-07-21 16:49 | W.PN.UPDATE ---
Update Note
Progress Note Update
CRRT note:
Systolic blood pressure around 90 on pressor support (vasopressin)
Extremities are mottled
UF goal with 50 cc/hr net negative
4K bath
qb 280 cc/minute
qd 1.5liter per hr
[2024-07-21 17:13] LABS: Haptoglobin 75 mg/dL (30-200)
--- NOTE | 2024-07-21 17:56 | PTCARENOTE ---
clarified serial labs while on CRRT. Will obtain BMP only Q6H as ordered.
--- NOTE | 2024-07-21 19:10 | PTCARENOTE ---
bedside handoff. Pericare performed for soft gelatinous burgundy to black stool. Fariba cream applied and repositioned for comfort. Pt requesting medication for anxiety.
--- NOTE | 2024-07-21 20:00 | PTCARENOTE ---
received pt from dayshift RN. pt with BM at shift change, cleaned and cream and desenex applied to sacrum. BM softer and more formed than previous night. repositioned for comfort, extremities elevated, pressure points offloaded. assessment as
documented. SR on monitor. vaso gtt titrated per order. CRRT running as ordered. on 2L NC. call cruz in reach. care ongoing.
[2024-07-21 21:06] LABS: Blood Urea Nitrogen 11 mg/dl (7-17); Calcium 8.4 mg/dl (8.4-10.2); Carbon Dioxide 23 mmol/L (22-30); Chloride 99 mmol/L (98-107); Estimated Creatinine Clearance 41 ml/min; Glucose 92 mg/dl (70-99); Potassium 3.2 mmol/L (3.5-5.1); Sodium 129 mmol/L (135-145); eGFR 43.69
[2024-07-21] MEDS: KCL 100 IV (21:43)
[2024-07-21] MEDS: MELATONIN 5 MG PO (22:40)
[2024-07-22] VITALS (54 sets, daily range): BP systolic 71–121; BP diastolic 46–96; BMI 37.1
--- NOTE | 2024-07-22 00:30 | PTCARENOTE ---
no changes in assessment noted. vaso gtt and CRRT continue, vaso weaned as SBP allows. potassium repleted per CRRT protocol. access pressure alarming on CRRT, arterial and venous line swapped. pt with another soft BM, ella. on 4L NC
for comfort, spO2 99%. call cruz in reach.
[2024-07-22 02:36] LABS: Hematocrit 21.4 % (37.0-47.0); Hemoglobin 6.6 g/dL (12.0-16.0); Mean Corp Hgb Conc. 30.8 g/dL (33.0-37.0); Mean Corpuscular Hgb 29.1 pg (27.0-31.0); Mean Corpuscular Volume 94.3 fL (81.0-99.0); Mean Platelet Volume 12.4 fL (7.4-10.4); Platelet Count 33 10^3/uL (130-400); Red Blood Cell Count 2.27 10^6/uL (4.20-5.40); Red Cell Dist. Width 17.2 % (11.5-14.5); White Blood Cell Count 9.2 10^3/uL (4.8-10.8)
[2024-07-22 02:54] LABS: INR 1.66; PT 19.8 Sec (11.4-14.6)
[2024-07-22 02:55] LABS: APTT 34.6 Sec (23.4-35.0)
[2024-07-22 02:56] LABS: Fibrinogen 166 MG/DL (199-459)
[2024-07-22 02:57] LABS: Blood Urea Nitrogen 10 mg/dl (7-17); Calcium 8.1 mg/dl (8.4-10.2); Carbon Dioxide 23 mmol/L (22-30); Chloride 103 mmol/L (98-107); Estimated Creatinine Clearance 44 ml/min; Glucose 77 mg/dl (70-99); Potassium 3.9 mmol/L (3.5-5.1); Sodium 134 mmol/L (135-145); eGFR 48.09
[2024-07-22 02:59] LABS: D-Dimer 1.57 ug/mlFEU (0.00-0.50)
--- NOTE | 2024-07-22 03:16 | PTCARENOTE ---
AM Hgb 6.6, 1u PRBC ordered. otherwise no changes in assessment noted
[2024-07-22] MEDS: FIRVANQ 500 MG PO ×4 (05:13→22:32)
[2024-07-22] MEDS: FLAGYL 500 MG 100 IV ×3 (05:14→22:27)
--- NOTE | 2024-07-22 07:13 | PTCARENOTE ---
Received pt on enhanced precautions, with CRRT via right IJ tunneled HD catheter. She stated she slept well and needed it. She confided in me that she understands that the doctors want a decision today regarding Hospice. She stated 'I'm just not
ready'. RN provided supportive care and encouraged her to have this conversation with her daughter as well. She stated she would. Currently Vasopressin dosage unchanged and infusion vis left DL PICC. Available PICC port flushed and patent. Right
wrist #24g protective catheter removed. Sluggish to flush. Doppler DP/PT signals with cyanosis of her heels and toes, plantar aspect of her feet. Finger tips cyanotic as well. Skin warm. Hypothermic 95.4 AX, Heater on CRRT increased, room
temperature adjusted. Will reassess. 2 liters nasal cannula. She stated is was more so for anxiety. +3 anasarca. Breath sounds anteriorly CTA. MASD to her perineum due to excessive bowel incontinence and melena. Cleansed, RX ointment applied.
Repositioned for comfort. Groin folds cleansed, Desenex and Calazime applied. She was encouraged to eat more today. 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 Will continue to provide supportive care to her and her daughter. For now I will continue to
monitor.
[2024-07-22] MEDS: SYMBICORT 160/4.5 MCG INHALER 2 PUFF INH ×2 (07:53→21:13)
--- NOTE | 2024-07-22 08:18 | W.PN.ONC2 ---
Today's Communication / Plan
-
Coags improving. Supportive care.
HgB = 6.6 so 1 u PRBC ordered. F/U CBC pending.
Impression
Impression
- coagulopathy, secondary to Eliquis, sepsis
- C diff colitis, with some rectal bleeding (dark blood, per RN)
- hypotension
- afib on eliquis
- ESRD on HD
Plan
Plan
Coags are improving off Eliquis
CBC daily. transfuse for hgb < 8.0 g/dl w/ bleed, plts < 20K and/or bleeding
Supportive care per primary team, nephrology, ID
Subjective/Objective
Chief Complaint
ACS Heme Progress
Subjective
Some bleeding per RN. Patient awake and has no specific new complaints.
Vital Signs:
Vital Signs
Temp Pulse Resp BP Pulse Ox
94.5 F L 74 16 106/57 98
07/22/24 07:17 07/22/24 07:59 07/22/24 07:59 07/22/24 06:30 07/22/24 07:59
Lab Results:
Laboratory Data
WBC 9.2 10^3/uL (4.8-10.8) 07/22/24 02:25
Hgb 6.6 g/dL (12.0-16.0) L* D 07/22/24 02:25
Plt Count 33 10^3/uL (130-400) L 07/22/24 02:25
PT 19.8 Sec (11.4-14.6) H 07/22/24 02:25
INR 1.66 07/22/24 02:25
APTT 34.6 Sec (23.4-35.0) 07/22/24 02:25
eGFR 48.09 07/22/24 02:25
Physical Exam
Cardiology: S1 and S2
Pulmonary: Clear
--- NOTE | 2024-07-22 08:24 | W.PN.HOSP.TC ---
Addendum entered and electronically signed by Le Nuñez MD, Resident 07/22/24 17:54:
# Pressure Ulcer
- healing stage 2 pressure injury L buttocks
- Sacral/buttocks/posterior upper thigh MASD
Original Note:
Today's Communication/Plan
-
Continue CRRT
Continue current antibiotics
Assessment / Plan
Assessment / Plan
73 y/o female with h/o ESRD on HD and recent hospitalizations presenting with:
# Septic shock POA, likely 2/2 C. Diff
- Norovirus neg, stool culture negative
- Leukocytosis, white count downtrending, 9.2 today
- On vasopressin, pressor needs decreasing
- Continue to wean pressors as able
- Lactic acid, ammonia normal
- Normal bowel sounds, abdomen non tender
- C. Diff positive, Fulminant, second episode
- Abdominal x-ray (07/14): dilated transverse colon to 7.4 cm with wall thickness, no free air --> Abd/pelvis Ct with IV/oral contrast: moderate pancolitis, small splenic infarcts, mild ascites, bilateral pleural effusion, mild left renal atrophy,
hepatic fatty infiltration, severe volume overload or third spacing.
- Colorectal surgery following peripherally - discussed treatment options including surgery (i.e.�subtotal colectomy with end ileostomy) and continued nonoperative measures
- Patient and family declined surgery
- Discussed plans with daughter at bedside
- Continue diet
- Patient having less bloody stools. Abd/pelvis CT: moderate pancolitis, small splenic infarcts, mild ascites, bilateral pleural effusion, mild left renal atrophy, hepatic fatty infiltration, severe volume overload or third spacing.
- Blood Cx no growth -- repeat blood culture Pseudomonas
- ID following - continue oral vancomycin 500 QID, IV metronidazole 500 Q8hr and eravacycline 75 IV BID --discussed with Dr. Glass risk and benefits of starting additional therapy-after discussion with patient and family, we will not add any
additional antibiotics for now
- Patient wants more time to make a final decision about hospice, will have a discussion with family later today
# Hypotension
- on vasopressin now, titrate to keep MAP>65, pressor needs decreasing
- Continue to hold IV fluids
- Continue midodrine 10 tid
- Status post albumin x2
- Dialysis held per nephrology -- Continue CRRT
# Thrombocytopenia and coagulopathy
- Plts continue to drop, 38 today -- held Eliquis -- status post 1 unit platelet
- Patient has had less bloody bowel movements
- INR, PTT elevated, fibrinogen low -- unclear if PTT, INR are reliable given patient is on Eliquis
- Hematology following -- suspicion for MAHA/TMA -- recommended vitamin K 10 mg oral, LDH wnl, haptoglobin normal, transfuse for hemoglobin less than 8 with bleed, platelets less than 20K -- If ongoing bleeding symptoms recommend FFP
- Gastroenterology following -- factor V and VII low, factor VIII pending
- Unclear etiology, medication related vs toxic megacolon vs sepsis
- It does not appear that Eliquis has any interaction with C. Diff meds -- held Eliquis
- Eravacycline adverse effects include prolonged PTT
- Will monitor Hgb -- down to 8.4 today -- consider PRBC 1 unit
- Maintain active Type and Screen
- Splenic infarcts can possibly explain coagulopathy
- Status post 1 unit platelet and 2 units FFP
- INR PTT decreased following holding Eliquis
# Anemia, acute on chronic
- Hemoglobin 6.6 this a.m.
- Status post 1 PRBC
# Bacteremia
- Blood Cx no growth -- repeat blood culture Pseudomonas
- ID following - continue oral vancomycin 500 QID, IV metronidazole 500 Q8hr and eravacycline 75 IV BID -- discussed with Dr. Glass risk and benefits of starting additional therapy-after discussion with patient and family, we will not add any
additional antibiotics for now
# Hypothermia
# QTc prolongation
- Continue Zofran 4 for now
- Check EKG and electrolytes daily
- Continue to monitor
# Hypokalemia and hypophosphatemia
- Replete K and Phos as needed
# Hypoalbuminemia
- Status post albumin x2
- Improving, albumin 2.3 today
- Nephrology following
# Hypocalcemia
- Now resolved
# Hyponatremia
- Nephrology following
- Stable
# Paroxysmal Afib
- Hold Eliquis
- Continue amiodarone
- Patient had Afib with RVR last night, transitioned to amio drip, converted to sinus
- Currently in sinus rhythm
- Cardiology consulted
# ESRD on HD
- Nephrology following
- Continue CRRT
# Asthma
- PO home meds held
# Hypomagnesemia likely 2/2 diarrhea
- Repleted as needed
Code status: DNR
DVT prophylaxis: Eliquis
Anticipated Discharge: > 48 hours
Subjective/Interval History
-
Date of Service: July 22, 2024
Objective Data
-
Labs:
Laboratory Results
07/21/24 07/22/24 07/22/24
20:16 02:25 08:22
WBC 9.2
Hgb 6.6 L* D Pending
Hct 21.4 L Pending
Plt Count 33 L
PT 19.8 H
INR 1.66
APTT 34.6
Sodium 129 L 134 L Pending
Potassium 3.2 L 3.9 Pending
Chloride 99 103 Pending
Carbon Dioxide 23 23 Pending
BUN 11 10 Pending
Creatinine 1.3 H 1.2 H Pending
Glucose 92 77 Pending
Calcium 8.4 8.1 L Pending
Vital Signs:
Vital Signs
Temp Pulse Resp BP Pulse Ox
94.5 F L 74 16 106/57 98
07/22/24 07:17 07/22/24 07:59 07/22/24 07:59 07/22/24 06:30 07/22/24 07:59
I&O
07/21/24 07/22/24 07/23/24
06:59 06:59 06:59
Intake Total 1768.0 / 1808.7 2747.9 / 2753.5 5.6 / 5.6
Output Total 2308 / 2475 167 / 167
Balance 1768.0 / 1808.7 439.9 / 278.5 -161.4 / -161.4
Review of Systems
-
History Source: Patient
Constitutional: Reports No Symptoms
Respiratory: Reports No Symptoms
Cardiac: Reports No Symptoms
Genitourinary: Reports No Symptoms
Musculoskeletal: Reports No Symptoms
Skin: Reports No Symptoms
Neuro: Reports No Symptoms
Endocrine: Reports No Symptoms
Hematologic / Lymphatic: Reports No Symptoms
Allergy / Immunology: Reports No Symptoms
Physical Exam
-
General: Well Developed, Well Nourished, No Apparent Distress and Comfortable
HEENT: Normocephalic
Respiratory: Decreased Breath Sounds
Cardiac: Regular Rhythm and S1/S2
GI: Soft, Nontender, Normal Bowel Sounds and Distended
Genito-urinary: No Costovertebral Tender
Musculoskeletal: No Clubbing, No Cyanosis, Edema, Right Lower Extrem, Edema, Left Lower Extrem and Other
Skin: Other (Extremities cold)
Neuro: Awake, Alert and Oriented
Hematologic / Lymphatic: No Lymphadenopathy
Psych: Depressed
[2024-07-22] MEDS: DESENEX/MITRAZOL/ZEASORB 1 APPLIC TOPICAL ×3 (08:29→22:33)
[2024-07-22 08:32] LABS: Glucose - Point of Care 77 mg/dl (70-99)
[2024-07-22] MEDS: RFP-401 HD Soln (K+ 4 mEq/L) 15000 ML CRRT-IRR ×2 (08:38→18:27)
--- NOTE | 2024-07-22 08:48 | W.PN.INTV ---
Today's Communication / Plan
Recommendations
Follow H&H
Follow blood cultures, echocardiography to look for vegetations as positive blood cultures and splenic infarcts on CT?
Continue CRRT as per nephro
Continued to monitor hemoglobin and platelet count
Assessment
-
Impression
Patient is a 73-year-old female, past medical history of end-stage renal disease hemodialysis dependent, paroxysmal atrial fibrillation, C. difficile in the past, recently discharged from [facility] on June 22 after receiving
broad-spectrum antibiotics for 2 weeks for hemodialysis catheter related infection. At that time received fluconazole for intertrigo, valacyclovir for shingles, oral vancomycin for C. difficile. Now presented with foul-smelling diarrhea for 2 days
and progressive septic shock including, low blood pressures, elevated WBC count, vasopressor dependence.
Evidence of C. difficile colitis on abdominal x-ray, transverse colon 7.4 cm with the loss of haustrations.
Reason for ICU admission:progressively worsening condition, increased amount of vasopressors, WBC count worsening.
On oral vancomycin, IV metronidazole and IV eravacyclin.
Patient opted for nonoperative management
Currently being evaluated for coagulopathy, decreased fibrinogen decreased platelet, increased PT/INR, decreased hemoglobin, increased D-dimers, no oozing of blood, had a bowel movement with blood on July 19, 2024, GI consulted-advised
coagulopathy workup-reticulocyte count less than 2, LDH normal-hemolysis less likely
Decreased factor V and VII-poor liver function-factor VIII pending
PT/INR/APTT-improving since holding the Eliquis
For atrial fibrillation-on amiodarone-high risk of stroke as no anticoagulation
Hemoglobin dropped to 6.6, platelet count dropped to 33, received 1 pack of blood, 2 packs of FFP's and 1 pack of platelet, CBC pending
Now on 1 L of oxygen, on vasopressors vasopressin 0.03
Assessment
Septic shock secondary to C. difficile colitis
Transverse megacolon secondary to C. difficile?
Paroxysmal atrial fibrillation
End-stage renal disease
Hypokalemia
Hypomagnesemia
Thrombocytopenia
Coagulopathy-Decreased fibrinogen, elevated INR
Plan/recommendations
Septic shock secondary to C. difficile colitis
On vasopressin 0.03 and midodrine 10 mg 3 times a day
Leukocytosis-trending down, ID is following
Patient opted for nonoperative management-ID considering oral fecal transplant on outpatient basis-not available inpatient -paperwork started as it takes a long time
Sepsis complicated by coagulopathy-workup ongoing-GI and heme on board-factor V and VIII reduced suggesting liver etiology-INR improving since stopping the Eliquis
Repeat CT abdomen-Severe third spacing of fluid and pancolitis along with splenic infarcts
Splenic infarcts-workup of infective endocarditis, blood cultures in progress from gram-negative bacilli
CRRT for third spacing of fluids,Pancolitis-manage conservatively,as patient denied surgery
Transverse megacolon secondary to C. difficile?
Abdominal x-ray done on 07/14/2024 suggest mild gaseous dilatation of transverse colon, with maximum diameter of 7.4 cm. Suggestion of wall thickening involving transverse colon, suggesting colitis
Colorectal surgery consult appreciated-no longer on vancomycin enemas -gave the patient option of subtotal colectomy with ileostomy-Patient declined surgery
On regular diet, poor appetite, consuming only 15 to 30% of food
Paroxysmal atrial fibrillation
On amiodarone infusion at 0.5 mcg/kg/min, Eliquis on hold due to underlying coagulopathy
High risk of stroke as patient is not on anticoagulation
End-stage renal disease
On continuous renal replacement therapy, serum creatinine 1.2, about 4 pounds increase in weight, nephrology following
Cautious use of fluid boluses and albumin as per nephro
Hypokalemia-Replete as needed
Hypomagnesemia-Replete as needed
Hyponatremia
Continue to monitor
Normal serum osmolality
Coagulopathy/thrombocytopenia
Coagulopathy-Decreased fibrinogen, elevated INR
GI consult appreciated-suggested uremia, liver dysfunction and autoimmune causes for the bleeding
Factor V, VII decreased and VIII pending
Hemolysis panel pending-reticulocyte count less than 2, LDH normal hemolysis less likely
Patient received 2 packs of FFP's, 1 pack of packed RBCs, 1 unit of platelets-H&H pending
Heme consult appreciated-continue to monitor platelet count and coagulation profile-keep platelet count greater than 50K- plan to transfuse plasma and platelets today
Keep MAP greater than 65
Keep potassium greater than 4 and magnesium greater than 2
Supplemental oxygen as needed
Keep platelet count greater than 50K
Keep hemoglobin greater than 8
DVT prophylaxis-Eliquis
CODE STATUS-DNR
Subjective Dataa
Subjective Data
Date of Service:
Date of Service: July 22, 2024
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
Subjective:
Patient feels nauseous on and off
Denies any abdominal pain, still having on and off burgundy stools
Abdominal exam benign, generalized body edema
Breathing on 1 L oxygen
Coagulopathy complicating the disease process
Clinically the patient feels better
Review of Systems
General: Other (Poor appetite)
GI: Nausea
Genitourinary: Other (Maceration of buttocks from consistent acidic stool exposure)
Objective Data
Data Reviewed
Vital Signs / I&O / Oxygen:
Vital Signs
Temp Pulse Resp BP Pulse Ox
96.6 F L 74 22 99/64 98
07/22/24 08:40 07/22/24 08:00 07/22/24 08:00 07/22/24 08:00 07/22/24 08:40
Intake and Output
07/21/24 07/22/24 07/23/24
06:59 06:59 06:59
Intake Total 1768.0 / 1808.7 2747.9 / 2753.5 12.9 / 12.9
Output Total 2308 / 2475 237 / 237
Balance 1768.0 / 1808.7 439.9 / 278.5 -224.1 / -224.1
SaO2 98
Nasal Cannula flow liters per 2
minute
Physical Exam
General: Comfortable and Other (Breathing on 1 L of oxygen, conversant, actively participating in her management plan, subjectively feels better)
HEENT: Normocephalic and Anicteric
Cardiovascular: S1-S2, Regular Rhythm and Peripheral Edema (Generalized body edema, peeling of skin of legs, mottling of toes)
Respiratory: Non-Labored Respirations and Other (Bilateral decreased breath sound at bases)
GI: Soft, Distended, Non Tender and Normal Bowel Sounds
Neurology: Awake, Alert and No Motor Deficits
Skin: Warm, Dry and Other (Mottled appearance of toes on both feet)
Labs/Micro/Reports
Laboratory Results
07/22/24
:
PT 19.8 H
INR 1.66
APTT 34.6
Microbiology
07/21/24 12:28 Blood/Venous Blood Culture - Preliminary
Positive culture in progress
07/21/24 12:28 Blood/Venous Gram Stain - Preliminary
07/14/24 12:48 Blood/Venous Blood Culture - Final
No Growth - Final Report
--- NOTE | 2024-07-22 09:10 | W.PN.ID1 ---
Addendum entered and electronically signed by Harmony Glass MD 07/22/24 10:19:
Notified by Dr Rizvi that patient will transition to hospice today, I would be in support.
Original Note:
Date of Service
Date of Service: July 22, 2024
Today's Communication
- discussed with patient and daughter, additional therapies for Pseudomonas would not be helpful for CDI overall and could make that aspect of her care worse. While her pressors have improved for now, she continues to have drop in hgb and plt, her
extremities are moteled; my overall opinion is that it is unlikely that she survives the current episode given the new issues she is now facing. We discussed continued aggressive care, do not escalate care and hospice. I think she has days in the
best case scenario and hours if we transition to hospice. She would like to take time to ponder and speak with her daughter. For the moment, she does not want me to add any additional therapies. She will notify RN and RN notify me if she decides
to continue with aggressive attempts at saving her life and at that time I would add zosyn. I would avoid carbapenems in [place] as they are unlikely to be effective.
- continue oral vancomycin 500 mg PO QID, IV metronidazole 500 mg IV Q8 hours
- c/w eravacycline 1 mg/kg iv q12 - salvage therapy
- patient is leaning towards do not escalate care vs hospice.
Assessment / Plan
Fulminant C difficile
Septic Shock
Bacteremia
CRRT
Recent h/o CRE line infection
- note new bacteremia, translocation vs line infection
- discussed with patient and daughter, additional therapies for Pseudomonas would not be helpful for CDI overall and could make that aspect of her care worse. While her pressors have improved for now, she continues to have drop in hgb and plt, her
extremities are moteled; my overall opinion is that it is unlikely that she survives the current episode given the new issues she is now facing. We discussed continued aggressive care, do not escalate care and hospice. I think she has days in the
best case scenario and hours if we transition to hospice. She would like to take time to ponder and speak with her daughter. For the moment, she does not want me to add any additional therapies. She will notify RN and RN notify me if she decides
to continue with aggressive attempts at saving her life and at that time I would add zosyn. I would avoid carbapenems in [place] as they are unlikely to be effective.
- continue oral vancomycin 500 mg PO QID, IV metronidazole 500 mg IV Q8 hours
- c/w eravacycline 1 mg/kg iv q12 - salvage therapy
- patient is leaning towards do not escalate care vs hospice.
Chief Complaint
-: C-diff (fulminant) and Other (septic shock)
Subjective / Review of Systems
now running hypothermic
norepi off, vaso appears to be on
hgb dropped two points overnight
progression of thrombocytopenia
Vital Signs / Physical Exam
Vital Signs
Vital Signs
Temp Pulse Resp BP Pulse Ox
96.6 F L 74 22 99/64 98
07/22/24 08:40 07/22/24 08:00 07/22/24 08:00 07/22/24 08:00 07/22/24 08:40
Physical Exam
Constitutional: Acutely Ill and Chronically Ill
Cardiovascular: Regular Rate and S1/S2; Negative Murmur or Rub
Pulmonary: Clear and Symmetric; Negative Wheezes or Rales
Gastrointestinal: Soft, Non Tender, Non Distended and Normal Bowel Sounds
Skin: Warm and Dry; Negative Rash or Jaundice
Objective Data
Lab Data
PT 19.8 Sec (11.4-14.6) H 07/22/24 02:25
INR 1.66 07/22/24 02:25
APTT 34.6 Sec (23.4-35.0) 07/22/24 02:25
Estimated Creat Clear 44 ml/min 02/05/25 02:25
Lactic Acid 1.2 mmol/L (0.7-2.0) 07/19/24 11:18
Total Bilirubin 1.2 mg/dl (0.2-1.3) 07/19/24 11:18
AST 59 U/L (14-36) H 07/19/24 11:18
ALT 25 U/L (0-35) 07/19/24 11:18
Alkaline Phosphatase 269 U/L (38-126) H 07/19/24 11:18
C-Reactive Protein 200.30 mg/L (0.0-10.00) H 07/13/24 11:18
Most recent labs reviewed.
Micro Results:
07/21/24 12:28 Blood Culture - Preliminary
Blood/Venous Positive culture in progress
Gram Stain - Preliminary
07/21/24 10:39 Blood Culture - Pending
Blood/Venous
07/14/24 12:48 Blood Culture - Final
Blood/Venous No Growth - Final Report
07/13/24 15:58 Blood Culture - Final
Blood/Venous No Growth - Final Report
07/14/24 02:10 Salmonella/Shigella Culture - Final
Feces/Stool No Salmonella, Shigella, Aeromonas or Plesiomonas species
isolated.
Campylobacter Culture - Final
No Campylobacter species isolated.
Shiga Toxin Test - Final
No E. coli Shiga Toxin 1 or 2 detected.
07/14/24 06:18 MRSA Screen - Final
Nose Staph aureus MRSA
07/14/24 02:10 C. difficile GDH Antigen & Toxins - Final
Feces/Stool Toxigenic C.difficile Positive
- Final
Negative for Norovirus GI and GII.
[2024-07-22] MEDS: PACERONE 200 MG PO ×3 (09:16→21:15)
[2024-07-22] MEDS: XERAVA 257.5 MG IV ×2 (09:16→21:15)
[2024-07-22] MEDS: NEURONTIN 100 MG PO (09:17)
[2024-07-22] MEDS: ProAmatine 10 MG PO ×3 (09:17→15:35)
[2024-07-22] MEDS: ROCALTROL 0.25 MCG PO (09:19)
[2024-07-22 09:24] LABS: Hematocrit 25.8 % (37.0-47.0); Hemoglobin 8.3 g/dL (12.0-16.0)
[2024-07-22 09:43] LABS: Blood Urea Nitrogen 9 mg/dl (7-17); Calcium 8.3 mg/dl (8.4-10.2); Carbon Dioxide 24 mmol/L (22-30); Chloride 102 mmol/L (98-107); Estimated Creatinine Clearance 49 ml/min; Glucose 73 mg/dl (70-99); Potassium 3.8 mmol/L (3.5-5.1); Sodium 134 mmol/L (135-145); eGFR 53.39
--- NOTE | 2024-07-22 10:46 | HOSPNOTE ---
Met with daughter and patient and at this time patient would like to make a decision tomorrow. Patient does not wish for any further medications to be added but will continue with current treatment. Attending updated and floor RN. Will meet again in
the morning. Will continue to follow.
--- NOTE | 2024-07-22 10:53 | W.PN.NEPH.PH ---
Today's Communication / Plan
-
cont CRRT
Assessment/Plan
-
Assessment:
POssible sepsis
Hypotension
C diff diarrhea
Recent Enterobacter bacteremia/GNR - Panresistant-completed abx on 06/19
Hypotension on midodrine
ESRD on HD-MWF through [facility]
Anemia
h/o GIB
Chronic hypoxic respiratory insufficiency
h/o urinary retention
parox a-fib
hyperlipidemia
Hx c-diff colitis
osteoarthritis
Chronic wounds
Hypoantremia
Plan:
cont cRRT as pt not made decision on hospice yet, likely transition tomorrow
UF as tolerates so far even balance and wt is up
titrate pressors as able to keep MAP > 65, currently on 2 pressor support
abx per ID
generalized edema likely from severe hypoalbuminemia
hyponatremia is dilutional
K repletion prn
coagulopathy-heme follows
prognosis is grim
Patient critically ill with ongoing pressor requirement in setting of fulminant C. difficile with hemodynamic collapse, and now for CRRT requirement
d/w nursing
d/w pt and daughter
critical care time 31 minutes
-
-
Date of Service: July 22, 2024
CC / HPI / ROS
-
Chief Complaint:
ESRD
History of Present Illness:
Na 134
on 3 antibiotic therapy for C diff
Anemia and thrombocytopenia worsening
on pressors for hypotension
critically ill in ICU
wt is significantly high
Review of Systems:
no cp or sob at rest
no abd pain
tolerating diet
Labs
-
Labs:
WBC 9.2 10^3/uL (4.8-10.8) 07/22/24 02:25
RBC 2.27 10^6/uL (4.20-5.40) L 07/22/24 02:25
Hgb 8.3 g/dL (12.0-16.0) L D 07/22/24 08:22
Hct 25.8 % (37.0-47.0) L 07/22/24 08:22
Plt Count 33 10^3/uL (130-400) L 07/22/24 02:25
Sodium 134 mmol/L (135-145) L 07/22/24 08:22
Potassium 3.8 mmol/L (3.5-5.1) 07/22/24 08:22
Chloride 102 mmol/L (98-107) 07/22/24 08:22
Carbon Dioxide 24 mmol/L (22-30) 07/22/24 08:22
BUN 9 mg/dl (7-17) 07/22/24 08:22
Creatinine 1.1 mg/dL (0.6-1.0) H 07/22/24 08:22
eGFR 53.39 07/22/24 08:22
Glucose 73 mg/dl (70-99) 07/22/24 08:22
Calcium 8.3 mg/dl (8.4-10.2) L 07/22/24 08:22
Phosphorus 4.0 mg/dl (2.5-4.5) 07/19/24 04:44
Rwz-S-Asoxqrrmzli Pept 590 pg/ml 07/13/24 12:59
Albumin 2.3 g/dl (3.5-5.0) L 07/19/24 11:18
Physical Exam
-
Vital Signs:
Vital Signs
Temp Pulse Resp BP Pulse Ox
97.5 F 87 25 106/75 98
07/22/24 10:29 07/22/24 10:00 07/22/24 10:00 07/22/24 10:00 07/22/24 08:40
Cardiovascular:: Regular rate and rhythm
Respiratory:: Bilateral: CTA (anteriorly)
Lung Excursion:: Normal
Abdomen:: Distended, Nontender and Soft
Extremity Edema:: +3: Bilateral:
Griffiths Catheter: No
--- NOTE | 2024-07-22 12:15 | PTCARENOTE ---
Hypotensive. Reassessed BP after assuring her arm was straight and the cuff in proper position. SBP remains in the 70's. Dr. Javed TT's this. Will keep pt even on her CVVHD & notify Dr. Javed of her SBP >90.
--- NOTE | 2024-07-22 12:33 | PTCARENOTE ---
Updated Kimberlyjania, pt's daughter regarding her SBP in the 70's. She understands we are not escalating care, Vasopressin will remain @ 0.02unit/min, and we not pull any fluid off at this point.
[2024-07-22 13:08] LABS: Glucose - Point of Care 56 mg/dl (70-99)
[2024-07-22 13:40] LABS: Glucose - Point of Care 96 mg/dl (70-99)
--- NOTE | 2024-07-22 13:56 | W.PN.UPDATE ---
Update Note
Progress Note Update
CRRT notes:
pt seen during CRRT earlier, adjust pressors for MAP>60
dialysate 1.5lt/hr
bld flow 250-300cc.min
UF net neg 50cc/hr as tolerates
no heparin
--- NOTE | 2024-07-22 14:15 | PTCARENOTE ---
Pt's [id number]-[id number] at the bedside. Saying final goodbyes. Pt is emotional. She has no appetite, and feeling nauseas. Labs obtained. Her SBP is in the 70's. Will continue to keep pt even on CRRT as ordered by Dr. Javed.
--- NOTE | 2024-07-22 14:29 | CM ---
CM following re: discharge planning.
Discussed in Rounds, reviewed pt's chart, met with pt and pt's daughter at bedside. Per nephrology CRRT started today. Per hospice admitting clerk, pt would like to make a decision regrading plan of care/comfort care tomorrow.
D/C plan: inpatient hospice vs home hospice in a SNF/[facility] or [place] hospice facility. Daughter is very involved and is aware of a possible plan for inpatient hospice and daughter is working on alternative plan: hospice at SNF/[facility] or [place]
hospice facility.
CM will follow with discharge plan updates as hospitalization progresses
--- NOTE | 2024-07-22 14:47 | PTCARENOTE ---
Dr. Francisco and Dr. Roberts notifed that pt requested something for her anxiety.
[2024-07-22] MEDS: ZOFRAN 4 MG IV (14:53)
--- NOTE | 2024-07-22 15:00 | PTCARENOTE ---
PM care performed. Partial CHG bath provided. Incontinent for gelatinous burgundy stool. Fariba care performed and RX ointment applied to perineum. She understands that the medication for anxiety may lower her blood pressure and that we were not
escalating her care to treat hypotension. She nodded her head in understanding. Dr. Francisco did not want 'hold parameters' for Amiodarone at this time.
--- NOTE | 2024-07-22 15:31 | W.PN.UPDATE ---
Update Note
Progress Note Update
Seen and examined by me independently in collaboration with the medical record librarian.
Lab data and imaging data reviewed.
Addendum as below :
Prior to my visit patient had a long discussion with daughter and ID physician and ovens supervisor about goals of care.
When I walked in she says she determine her mind about going on hospice.
She feels okay from her abdomen standpoint without pain. Tolerating some diet. Still having some intermittent rectal bleeding.
Breathing is comfortable.
Currently on CRRT.
Became more anemic and needing transfusion support this morning. Improved INR PTT but still slightly lower fibrinogen and platelets. Patient has low DIC which is suspect probably secondary to infection. She is bacteremic again with Pseudomonas in
the bloodstream today.
She remains still fluid overloaded despite CRRT. She is still hypotensive requiring 1 vasopressor.
Since now the last year patient has been more days in the hospital than at home with multiple significant medical events.
With recurrent bacteremic episode including CRE bacteremia, persistence of organ dysfunction that is dialysis dependent renal failure and poor functional status prognosis is poor.
I feel hospice is appropriate.
Discussed with CLINICAL PSYCHOLOGY TEACHER and ID/ovens supervisor.
Discussed with daughter at bedside.
Total time spent on today's encounter was 52 minutes which included time spent in counseling the patient/family regarding diagnosis and treatment plan as listed above, goals of care, and symptom management. Case was discussed with nursing staff,
specialists, and care coordinators/case management. All labs and imaging personally reviewed by me. Remainder the time spent in detailed review of previous records, lab data, imaging, and other medical provider documentation.
[2024-07-22] MEDS: XANAX 0.25 MG PO ×2 (15:34→20:09)
[2024-07-22] MEDS: PITRESSIN 100 IV (15:35)
[2024-07-22 15:52] LABS: Blood Urea Nitrogen 8 mg/dl (7-17); Calcium 7.1 mg/dl (8.4-10.2); Carbon Dioxide 24 mmol/L (22-30); Chloride 101 mmol/L (98-107); Estimated Creatinine Clearance 54 ml/min; Glucose 101 mg/dl (70-99); Potassium 3.1 mmol/L (3.5-5.1); Sodium 135 mmol/L (135-145); eGFR 59.86
--- NOTE | 2024-07-22 16:00 | PTCARENOTE ---
Dr. Javed aware SBP remains <90mmHg and unable to remove ordered fluid removal of 50ml/hr. BUN/Creat WNL. Clarified if we are to continue with treatment given normal BUN/Creat and inability to remove any fluid for the past 4 hours.
[2024-07-22] MEDS: KCL 100 IV ×2 (16:03→21:14)
[2024-07-22 17:15] LABS: Glucose - Point of Care 96 mg/dl (70-99)
--- NOTE | 2024-07-22 20:57 | PTCARENOTE ---
Pt received at 19:00, daughter and son-in-law at bedside. Ox3, generalized weakness. SR--HR 70s-80s. Pulses present with doppler. Hypotensive, SBP 70s-low 90s, vasopressin remains at 0.02units/min--no escalation for hypotension. Remains on 2L NC,
pulse ox 99-100%. Breath sounds diminished/crackles. Hyperactive BS, no stool noted at this time. Anuric. Continues on CRRT as ordered. Safe environment maintained, call cruz within reach.
[2024-07-22 21:02] LABS: Blood Urea Nitrogen 7 mg/dl (7-17); Calcium 7.2 mg/dl (8.4-10.2); Carbon Dioxide 24 mmol/L (22-30); Chloride 102 mmol/L (98-107); Estimated Creatinine Clearance 60 ml/min; Glucose 94 mg/dl (70-99); Potassium 3.4 mmol/L (3.5-5.1); Sodium 133 mmol/L (135-145); eGFR > 60.00
[2024-07-22] MEDS: MELATONIN 5 MG PO (21:15)
[2024-07-22 21:54] LABS: Glucose - Point of Care 61 mg/dl (70-99)
[2024-07-22 22:16] LABS: Glucose - Point of Care 62 mg/dl (70-99)
[2024-07-22 22:39] LABS: Glucose - Point of Care 90 mg/dl (70-99)
[2024-07-23] VITALS (24 sets, daily range): BP systolic 44–108; BP diastolic 21–70; BMI 36.9
[2024-07-23 00:57] LABS: Glucose - Point of Care 83 mg/dl (70-99)
[2024-07-23 01:17] LABS: Factor VIII Activity 449 % (56-191)
--- NOTE | 2024-07-23 01:35 | PTCARENOTE ---
Pt assessment unchanged. Daughter remains at bedside. CRRT continues as ordered.
[2024-07-23 03:19] LABS: APTT 35.7 Sec (23.4-35.0); Hematocrit 25.4 % (37.0-47.0); Hemoglobin 8.1 g/dL (12.0-16.0); INR 1.62; Mean Corp Hgb Conc. 31.9 g/dL (33.0-37.0); Mean Corpuscular Hgb 28.9 pg (27.0-31.0); Mean Corpuscular Volume 90.7 fL (81.0-99.0); PT 19.8 Sec (11.4-14.6); Platelet Count 22 10^3/uL (130-400); Red Cell Dist. Width 18.7 % (11.5-14.5); White Blood Cell Count 10.6 10^3/uL (4.8-10.8)
[2024-07-23 03:21] LABS: Blood Urea Nitrogen 7 mg/dl (7-17); Calcium 7.6 mg/dl (8.4-10.2); Carbon Dioxide 25 mmol/L (22-30); Chloride 101 mmol/L (98-107); Estimated Creatinine Clearance 67 ml/min; Glucose 101 mg/dl (70-99); Sodium 134 mmol/L (135-145); eGFR > 60.00
[2024-07-23 03:25] LABS: Fibrinogen 131 MG/DL (199-459)
[2024-07-23] MEDS: RFP-401 HD Soln (K+ 4 mEq/L) 15000 ML CRRT-IRR (03:34)
[2024-07-23] MEDS: FIRVANQ 500 MG PO (04:50)
--- NOTE | 2024-07-23 06:09 | PTCARENOTE ---
CRRT continues as ordered. SBP >90, net loss goal -50. Attempted x2hrs, SBP decreased to 70s, returned to even exchange. Pt assessment unchanged, daughter remains at bedside.
[2024-07-23] MEDS: FLAGYL 500 MG 100 IV (06:32)
[2024-07-23 07:43] LABS: Glucose - Point of Care 82 mg/dl (70-99)
[2024-07-23] MEDS: ProAmatine 10 MG PO (08:05)
[2024-07-23] MEDS: ROCALTROL 0.25 MCG PO (08:05)
[2024-07-23] MEDS: PACERONE 200 MG PO (08:05)
[2024-07-23] MEDS: NEURONTIN 100 MG PO (08:05)
[2024-07-23] MEDS: DESENEX/MITRAZOL/ZEASORB 1 APPLIC TOPICAL (08:06)
--- NOTE | 2024-07-23 08:15 | W.PN.HOSP.TC ---
Today's Communication/Plan
-
Patient is agreeable to hospice
Will discharge to inpatient hospice today and make patient comfortable
Assessment / Plan
Assessment / Plan
73 y/o female with h/o ESRD on HD and recent hospitalizations presenting with:
# Septic shock POA, likely 2/2 C. Diff
- Norovirus neg, stool culture negative
- Leukocytosis, white count downtrending, 9.2 today
- On vasopressin, pressor needs decreasing
- Continue to wean pressors as able
- Lactic acid, ammonia normal
- Normal bowel sounds, abdomen non tender
- C. Diff positive, Fulminant, second episode
- Abdominal x-ray (07/14): dilated transverse colon to 7.4 cm with wall thickness, no free air --> Abd/pelvis Ct with IV/oral contrast: moderate pancolitis, small splenic infarcts, mild ascites, bilateral pleural effusion, mild left renal atrophy,
hepatic fatty infiltration, severe volume overload or third spacing.
- Colorectal surgery following peripherally - discussed treatment options including surgery (i.e.�subtotal colectomy with end ileostomy) and continued nonoperative measures
- Patient and family declined surgery
- Discussed plans with daughter at bedside
- Continue diet
- Patient having less bloody stools. Abd/pelvis CT: moderate pancolitis, small splenic infarcts, mild ascites, bilateral pleural effusion, mild left renal atrophy, hepatic fatty infiltration, severe volume overload or third spacing.
- Blood Cx no growth -- repeat blood culture Pseudomonas
- ID following - continue oral vancomycin 500 QID, IV metronidazole 500 Q8hr and eravacycline 75 IV BID --discussed with Dr. Glass risk and benefits of starting additional therapy-after discussion with patient and family, we will not add any
additional antibiotics for now
- Patient wants more time to make a final decision about hospice, will have a discussion with family later today
# Hypotension
- on vasopressin now, titrate to keep MAP>65, pressor needs decreasing
- Continue to hold IV fluids
- Continue midodrine 10 tid
- Status post albumin x2
- Dialysis held per nephrology -- Continue CRRT
# Thrombocytopenia and coagulopathy
- Plts continue to drop, 22 today -- held Eliquis -- status post 1 unit platelet - Will not transfuse as patient is agreeable to hospice and focus is to make patient comfortable
- Patient has had less bloody bowel movements
- INR, PTT elevated, fibrinogen low -- unclear if PTT, INR are reliable given patient is on Eliquis
- Hematology following -- suspicion for MAHA/TMA -- recommended vitamin K 10 mg oral, LDH wnl, haptoglobin normal, transfuse for hemoglobin less than 8 with bleed, platelets less than 20K -- If ongoing bleeding symptoms recommend FFP
- Gastroenterology following -- factor V and VII low, factor VIII high -- consistent with sepsis, DIC unlikely
- Unclear etiology, medication related vs toxic megacolon vs sepsis
- It does not appear that Eliquis has any interaction with C. Diff meds -- held Eliquis
- Eravacycline adverse effects include prolonged PTT
- Will monitor Hgb -- down to 8.1 today -- consider PRBC 1 unit
- Maintain active Type and Screen
- Splenic infarcts can possibly explain coagulopathy
- Status post 1 unit platelet and 2 units FFP
- INR PTT decreased following holding Eliquis
# Anemia, acute on chronic
- Hemoglobin 8.1 this a.m. Will not transfuse as patient is agreeable to hospice and focus is to make patient comfortable
- Status post 1 PRBC
# Bacteremia
- Blood Cx no growth -- repeat blood culture Pseudomonas
- ID following - continue oral vancomycin 500 QID, IV metronidazole 500 Q8hr and eravacycline 75 IV BID -- discussed with Dr. Glass risk and benefits of starting additional therapy-after discussion with patient and family, we will not add any
additional antibiotics for now
# Hypothermia
# QTc prolongation
- Continue Zofran 4 for now
- Check EKG and electrolytes daily
- Continue to monitor
# Hypokalemia and hypophosphatemia
- Replete K and Phos as needed
# Hypoalbuminemia
- Status post albumin x2
- Improving, albumin 2.3 today
- Nephrology following
# Hypocalcemia
- Now resolved
# Hyponatremia
- Nephrology following
- Stable
# Paroxysmal Afib
- Hold Eliquis
- Continue amiodarone
- Patient had Afib with RVR last night, transitioned to amio drip, converted to sinus
- Currently in sinus rhythm
- Cardiology consulted
# ESRD on HD
- Nephrology following
- Continue CRRT
# Asthma
- PO home meds held
# Hypomagnesemia likely 2/2 diarrhea
- Repleted as needed
Code status: DNR
DVT prophylaxis: Eliquis
Anticipated Discharge: Today
Subjective/Interval History
-
Date of Service: July 23, 2024
Objective Data
-
Labs:
Laboratory Results
07/22/24 07/23/24 07/23/24
20:32 02:48 09:00
WBC 10.6
Hgb 8.1 L
Hct 25.4 L
Plt Count 22 L* D
PT 19.8 H
INR 1.62
APTT 35.7 H
Sodium 133 L 134 L Pending
Potassium 3.4 L 4.0 Pending
Chloride 102 101 Pending
Carbon Dioxide 24 25 Pending
BUN 7 7 Pending
Creatinine 0.9 0.8 Pending
Glucose 94 101 H Pending
Calcium 7.2 L 7.6 L Pending
Vital Signs:
Vital Signs
Temp Pulse Resp BP Pulse Ox
95.9 F L 75 21 90/68 99
07/23/24 03:33 07/23/24 07:30 02/06/25 07:30 07/23/24 07:30 07/23/24 02:20
I&O
07/22/24 07/23/24 07/24/24
06:59 06:59 06:59
Intake Total 2747.9 / 2753.5 1675.3 / 1739.2 182.5 / 182.5
Output Total 2308 / 2475 2419 / 2424 65 / 65
Balance 439.9 / 278.5 -743.7 / -684.8 117.5 / 117.5
--- NOTE | 2024-07-23 08:25 | W.PN.INTV ---
Today's Communication / Plan
Recommendations
Transition to hospice today
Legal Writing Professor will sign off
Assessment
-
Impression
Patient is a 73-year-old female, past medical history of end-stage renal disease hemodialysis dependent, paroxysmal atrial fibrillation, C. difficile in the past, recently discharged from [facility] on June 22 after receiving
broad-spectrum antibiotics for 2 weeks for hemodialysis catheter related infection. At that time received fluconazole for intertrigo, valacyclovir for shingles, oral vancomycin for C. difficile. Now presented with foul-smelling diarrhea for 2 days
and progressive septic shock including, low blood pressures, elevated WBC count, vasopressor dependence.
Evidence of C. difficile colitis on abdominal x-ray, transverse colon 7.4 cm with the loss of haustrations.
Reason for ICU admission:progressively worsening condition, increased amount of vasopressors, WBC count worsening.
On oral vancomycin, IV metronidazole and IV eravacyclin.
Patient opted for nonoperative management
Currently on vasopressin 0.02 units, breathing on 2 L of oxygen, having on and off burgundy stools, severe third spacing of fluid, severe C. difficile with pancolitis, DIC secondary to infection, continuously deteriorating, patient to be transition
to hospice today.
Hemoglobin 8.1 after receiving 1 pack of RBCs, platelet count dropped to 22, received 2 packs of FFP's and 1 pack of platelet, still platelet continues to drop -due to underlying sepsis secondary to DIC
Assessment
Septic shock secondary to C. difficile colitis
Transverse megacolon secondary to C. difficile?
Paroxysmal atrial fibrillation
End-stage renal disease
Hypokalemia
Hypomagnesemia
Thrombocytopenia
Coagulopathy-Decreased fibrinogen, elevated INR
Plan/recommendations
Septic shock secondary to C. difficile colitis
On vasopressin 0.02 and midodrine 10 mg 3 times a day
Sepsis complicated by coagulopathy-workup ongoing-GI and heme on board-factor V and VIII reduced suggesting liver etiology-INR improving since stopping the Eliquis
Repeat CT abdomen-Severe third spacing of fluid and pancolitis along with splenic infarcts
Despite aggressive antibiotic management, patient developed Pseudomonas bacteremia, ID clarified to the patient about the worse prognosis, patient understands her options, decided to go for hospice
Transverse megacolon secondary to C. difficile?
Abdominal x-ray done on 07/14/2024 suggest mild gaseous dilatation of transverse colon, with maximum diameter of 7.4 cm. Suggestion of wall thickening involving transverse colon, suggesting colitis
Colorectal surgery consult appreciated-no longer on vancomycin enemas -gave the patient option of subtotal colectomy with ileostomy-Patient declined surgery
On regular diet, poor appetite, consuming only 15 to 30% of food
Paroxysmal atrial fibrillation
On amiodarone infusion 200 mg per oral 3 times a day
High risk of stroke as patient is not on anticoagulation
End-stage renal disease
On continuous renal replacement therapy, serum creatinine 0.8, consistently third spacing of fluid, nephro following
Cautious use of fluid boluses and albumin as per nephro
Hypokalemia-Replete as needed
Hypomagnesemia-Replete as needed
Hyponatremia
Continue to monitor
Normal serum osmolality
Coagulopathy/thrombocytopenia
Coagulopathy-Decreased fibrinogen, elevated INR
GI consult appreciated-suggested uremia, liver dysfunction and autoimmune causes for the bleeding
Factor V, VII decreased and VIII pending
Hemolysis panel pending-reticulocyte count less than 2, LDH normal hemolysis less likely
Patient received 2 packs of FFP's, 1 pack of packed RBCs, 1 unit of platelets-platelet count continues to drop-now 22, hemoglobin 8
Heme consult appreciated-continue to monitor platelet count and coagulation profile-keep platelet count greater than 50K
Keep MAP greater than 65
Keep potassium greater than 4 and magnesium greater than 2
Supplemental oxygen as needed
Keep platelet count greater than 50K
Keep hemoglobin greater than 8
Currently main focus is pain management and patient comfort as the patient is agreeable to hospice
DVT prophylaxis-Eliquis
CODE STATUS-DNR
Subjective Dataa
Subjective Data
Date of Service:
Date of Service: July 23, 2024
Chief Complaint: Legal Writing Professor Follow Up and Pulmonary Follow Up
Subjective:
Patient convinced about her decision to transition to hospice
Appears depressed and teary but understands her condition and wants to continue with hospice
Currently she is on continuous renal replacement therapy
On vasopressin 0.02 units
Awake and oriented, breathing on 2 L of oxygen
Still on and off burgundy stools
On regular diet, not tolerating, consuming only 15% of meals
Plan to sign hospice today
Review of Systems
General: Other (Patient terminally ill, denies any complaints, review of systems is negative)
Objective Data
Data Reviewed
Vital Signs / I&O / Oxygen:
Vital Signs
Temp Pulse Resp BP Pulse Ox
94.5 F L 75 21 90/68 99
07/23/24 07:30 07/23/24 07:30 07/23/24 07:30 07/23/24 07:30 07/23/24 02:20
Intake and Output
07/22/24 07/23/24 07/24/24
06:59 06:59 06:59
Intake Total 2747.9 / 2753.5 1675.3 / 1739.2 182.5 / 182.5
Output Total 2308 / 2475 2419 / 2424 65 / 65
Balance 439.9 / 278.5 -743.7 / -684.8 117.5 / 117.5
SaO2 99
Nasal Cannula flow liters per 2
minute
Physical Exam
General: Comfortable and Other (Breathing on 2 L of oxygen, conversant, denies any vomiting,, nausea, abdominal pain, teary and depressed)
HEENT: Normocephalic and Anicteric
Cardiovascular: S1-S2, Regular Rhythm and Peripheral Edema (Generalized body edema, peeling of skin of legs, mottling of toes)
Respiratory: Non-Labored Respirations and Other (Bilateral decreased breath sound at bases)
GI: Soft, Distended, Non Tender and Normal Bowel Sounds
Neurology: Awake, Alert and No Motor Deficits
Skin: Warm, Dry and Other (Mottled appearance of toes on both feet)
Labs/Micro/Reports
Lab Data
07/23/24 02:48
Laboratory Results
07/23/24
02:48
PT 19.8 H
INR 1.62
APTT 35.7 H
Microbiology
07/21/24 10:39 Blood/Venous Blood Culture - Preliminary
No Growth in 24 hours- Final report to follow
07/21/24 12:28 Blood/Venous Blood Culture - Preliminary
Pseudomonas aeruginosa
07/21/24 12:28 Blood/Venous Gram Stain - Preliminary
[2024-07-23] MEDS: SYMBICORT 160/4.5 MCG INHALER 2 PUFF INH (08:32)
--- NOTE | 2024-07-23 08:36 | W.PN.HOSP.TC ---
Today's Communication/Plan
-
DC to inpatient hospice
Assessment / Plan
Assessment / Plan
73 y/o female with h/o ESRD on HD and recent hospitalizations presenting with:
# Septic shock POA, likely 2/2 C. Diff
- Norovirus neg, stool culture negative
- Leukocytosis, white count downtrend down but remains on vasopressors
- On vasopressin
- Continue to wean pressors as able
- Lactic acid, ammonia normal
- C. Diff positive, Fulminant, second episode
- Abdominal x-ray (07/14): dilated transverse colon to 7.4 cm with wall thickness, no free air --> Abd/pelvis Ct with IV/oral contrast: moderate pancolitis, small splenic infarcts, mild ascites, bilateral pleural effusion, mild left renal atrophy,
hepatic fatty infiltration, severe volume overload or third spacing.
- Colorectal surgery following peripherally - discussed treatment options including surgery (i.e.�subtotal colectomy with end ileostomy) and continued nonoperative measures
- Patient and family declined surgery and admission
- Continue diet
- Patient having less bloody stools. Abd/pelvis CT: moderate pancolitis, small splenic infarcts, mild ascites, bilateral pleural effusion, mild left renal atrophy, hepatic fatty infiltration, severe volume overload or third spacing.
- Blood Cx now growing Pseudomonas
- ID following - continue oral vancomycin 500 QID, IV metronidazole 500 Q8hr and eravacycline 75 IV BID
# Persistent hypotension secondary to persistent shock
- on vasopressin now, titrate to keep MAP>65, pressor needs decreasing
- Continue to hold IV fluids
- Continue midodrine 10 tid
- Status post albumin x2
- Dialysis held per nephrology -- Continue CRRT
# Thrombocytopenia ,coagulopathy and hypofibrinogenemia suspicious for DIC
-She had evidence of bleeding from cath and as well as suspicious for thrombosis with splenic infarcts
-Lab work shows persistence of low-grade DIC. Suspicion for DIC is from infection
- Plts continue to drop, 22 today despite platelet transfusion and FFP
# Anemia, acute on chronic; acute competent suspect secondary to acute blood loss
- Hemoglobin 8.1 this a.m.
- Status post 1 PRBC
# Bacteremia
- Blood Cx no growth -- repeat blood culture Pseudomonas
-Patient with a recurrent bacteremic episodes of various isolates including CRE which raises concern for future risk of recurrent sepsis and septic shock
# Hypothermia-this is new and worrisome for ill effects of infection.
# Hypoalbuminemia with generalized third spacing and pleural effusion and ascites
- Status post albumin x2
- Improving, albumin 2.3 today
- Nephrology following
# Hyponatremia
- Nephrology following
- Stable
# Paroxysmal Afib
- Hold Eliquis
- Continue amiodarone p.o.
- Patient had Afib with RVR the other night. Currently in sinus rhythm
- Currently in sinus rhythm
- Cardiology consulted
# ESRD on HD
- Nephrology following
- Continue CRRT
# Asthma
- PO home meds held
# Hypomagnesemia likely 2/2 diarrhea
- Repleted as needed
Code status: DNR
DVT prophylaxis: Eliquis
Patient has been having significant decline with her health since April last year with multiple hospitalization and multiple life-threatening sepsis episodes. She also developed nonrecurring acute renal failure needing dialysis support. She
again presented with another episode of septic shock secondary to abdominal and C. difficile colitis and while in the hospital develops bacteremic episodes. She remains in low-grade DIC. She also has significant fluid overload and unable to
optimize it with hemodialysis and now CRRT. Since now, she has hardly been in her home and that she has been mostly in the facilities.
There were discussions at multiple points by multiple providers about her medical conditions and the grave prognosis. She does understand that she may never home and may be institutionalized.
Daughter is involved in all the decision making and supportive to mom.
Yesterday she had told that she wanted to transition to hospice to me and wanted a day to think over. Today she has expressed her wishes to transition to hospice.
With comfort as a goal we discussed about weaning off the CRRT and vasopressors and antibiotics and let the nature takes the course and both the patient and the daughter is in agreement.
Discussed with CHILD NURSE. Discussed with hospice team.
Discharge patient from inpatient acute hospital to inpatient hospice today.
Total time of discharge 35 minutes
Anticipated Discharge: Today
Subjective/Interval History
-
Date of Service: July 23, 2024
Patient awake and oriented.
She said she dozed off here and there. Denies any pain or discomfort. No abdominal pain. Denies shortness of breath.
Daughter at bedside and she slept in the room with her last night.
There were discussions by multiple medical providers about goals of care and hospice and patient wanted to day yesterday to think about it and today she said she made patient that she wanted to transition into hospice.
Discussed with RN
Patient persists need vasopressors
On CRRT
Had 2 bowel movements seemed more brown now.
Objective Data
-
Labs:
Laboratory Results
07/22/24 07/23/24 07/23/24
20:32 02:48 09:00
WBC 10.6
Hgb 8.1 L
Hct 25.4 L
Plt Count 22 L* D
PT 19.8 H
INR 1.62
APTT 35.7 H
Sodium 133 L 134 L Pending
Potassium 3.4 L 4.0 Pending
Chloride 102 101 Pending
Carbon Dioxide 24 25 Pending
BUN 7 7 Pending
Creatinine 0.9 0.8 Pending
Glucose 94 101 H Pending
Calcium 7.2 L 7.6 L Pending
Vital Signs:
Vital Signs
Temp Pulse Resp BP Pulse Ox
94.5 F L 80 16 90/68 99
07/23/24 07:30 07/23/24 08:33 07/23/24 08:33 07/23/24 07:30 07/23/24 08:33
I&O
07/22/24 07/23/24 07/24/24
06:59 06:59 06:59
Intake Total 2747.9 / 2753.5 1675.3 / 1739.2 182.5 / 182.5
Output Total 2308 / 2475 2419 / 2424 65 / 65
Balance 439.9 / 278.5 -743.7 / -684.8 117.5 / 117.5
Review of Systems
-
Respiratory: Denies Trouble Breathing
Cardiac: Denies Chest Pain
Abdomen/GI: Denies Abdominal Pain, Nausea or Vomiting
Neuro: Denies Dizzy
Physical Exam
-
General: No Apparent Distress
Respiratory: Clear to Auscultation (Anteriorly) and Non Labored Respirations; Negative Accessory Resp Muscle Use
Cardiac: Regular Rhythm and S1/S2
GI: Soft, Nontender, Nondistended and Normal Bowel Sounds
Neuro: AO x 3
Data Reviewed
-
Labs: Labs Reviewed by me
[2024-07-23] MEDS: ATIVAN 1 MG IV ×3 (09:44→21:30)
--- NOTE | 2024-07-23 10:21 | PTCARENOTE ---
CRRT and vasopressin d/c'd. Pt requested and given PRN ativan for anxiety. Daughter at bedside
--- NOTE | 2024-07-23 11:43 | W.PN.UPDATE ---
Update Note
Progress Note Update
pt transitioning to hospice
will s/o, off CRRT this am
--- NOTE | 2024-07-23 13:10 | CHAP ---
Emotional and spiritual support provided for Michaela and her daughter at bedside. Prayer blanket given. They reported a patrick visit with their home trim die maker earlier during her hospitalization.
--- NOTE | 2024-07-23 13:26 | HOSPNOTE ---
Assessed patient and the patient appears comfortable at this time. I do believe that will be imminent. I spoke with daughter and emotional support provided. I will continue to follow.
[2024-07-24] VITALS (12 sets, daily range): BP systolic 33–63; BP diastolic 17–28
[2024-07-24] MEDS: MORPHINE SULFATE 1 MG IV ×5 (02:09→21:43)
[2024-07-24] MEDS: ATIVAN 1 MG IV ×4 (03:18→21:44)
--- NOTE | 2024-07-24 08:09 | W.PN.HOSP.TC ---
Today's Communication/Plan
-
Continue comfort measures
Patient hypotensive
Hospice team involved
Assessment / Plan
Assessment / Plan
73 y/o female with h/o ESRD on HD and recent hospitalizations presenting with:
# Septic shock POA, likely 2/2 C. Diff
- Norovirus neg, stool culture negative
- Leukocytosis, white count downtrending, 9.2 today
- On vasopressin, pressor needs decreasing
- Continue to wean pressors as able
- Lactic acid, ammonia normal
- Normal bowel sounds, abdomen non tender
- C. Diff positive, Fulminant, second episode
- Abdominal x-ray (07/14): dilated transverse colon to 7.4 cm with wall thickness, no free air --> Abd/pelvis Ct with IV/oral contrast: moderate pancolitis, small splenic infarcts, mild ascites, bilateral pleural effusion, mild left renal atrophy,
hepatic fatty infiltration, severe volume overload or third spacing.
- Colorectal surgery following peripherally - discussed treatment options including surgery (i.e.�subtotal colectomy with end ileostomy) and continued nonoperative measures
- Patient and family declined surgery
- Discussed plans with daughter at bedside
- Continue diet
- Patient having less bloody stools. Abd/pelvis CT: moderate pancolitis, small splenic infarcts, mild ascites, bilateral pleural effusion, mild left renal atrophy, hepatic fatty infiltration, severe volume overload or third spacing.
- Blood Cx no growth -- repeat blood culture Pseudomonas
- ID following - continue oral vancomycin 500 QID, IV metronidazole 500 Q8hr and eravacycline 75 IV BID --discussed with Dr. Glass risk and benefits of starting additional therapy-after discussion with patient and family, we will not add any
additional antibiotics for now
- Patient on comfort measures
# Hypotension
- on vasopressin now, titrate to keep MAP>65, pressor needs decreasing
- Continue to hold IV fluids
- Continue midodrine 10 tid
- Status post albumin x2
- Dialysis held per nephrology -- Continue CRRT
- Patient on comfort measures
# Thrombocytopenia and coagulopathy
- Plts continue to drop, 22 today -- held Eliquis -- status post 1 unit platelet - Will not transfuse as patient is agreeable to hospice and focus is to make patient comfortable
- Patient has had less bloody bowel movements
- INR, PTT elevated, fibrinogen low -- unclear if PTT, INR are reliable given patient is on Eliquis
- Hematology following -- suspicion for MAHA/TMA -- recommended vitamin K 10 mg oral, LDH wnl, haptoglobin normal, transfuse for hemoglobin less than 8 with bleed, platelets less than 20K -- If ongoing bleeding symptoms recommend FFP
- Gastroenterology following -- factor V and VII low, factor VIII high -- consistent with sepsis, DIC unlikely
- Unclear etiology, medication related vs toxic megacolon vs sepsis
- It does not appear that Eliquis has any interaction with C. Diff meds -- held Eliquis
- Eravacycline adverse effects include prolonged PTT
- Will monitor Hgb -- down to 8.1 today -- consider PRBC 1 unit
- Maintain active Type and Screen
- Splenic infarcts can possibly explain coagulopathy
- Status post 1 unit platelet and 2 units FFP
- INR PTT decreased following holding Eliquis
# Anemia, acute on chronic
- Hemoglobin 8.1 this a.m. Will not transfuse as patient is agreeable to hospice and focus is to make patient comfortable
- Status post 1 PRBC
# Bacteremia
- Blood Cx no growth -- repeat blood culture Pseudomonas
- ID following - continue oral vancomycin 500 QID, IV metronidazole 500 Q8hr and eravacycline 75 IV BID -- discussed with Dr. Glass risk and benefits of starting additional therapy-after discussion with patient and family, we will not add any
additional antibiotics for now
# Hypothermia
# QTc prolongation
- Continue Zofran 4 for now
- Check EKG and electrolytes daily
- Continue to monitor
# Hypokalemia and hypophosphatemia
- Replete K and Phos as needed
# Hypoalbuminemia
- Status post albumin x2
- Improving, albumin 2.3 today
- Nephrology following
# Hypocalcemia
- Now resolved
# Hyponatremia
- Nephrology following
- Stable
# Paroxysmal Afib
- Hold Eliquis
- Continue amiodarone
- Patient had Afib with RVR last night, transitioned to amio drip, converted to sinus
- Currently in sinus rhythm
- Cardiology consulted
# ESRD on HD
- Nephrology following
- Continue CRRT
# Asthma
- PO home meds held
# Hypomagnesemia likely 2/2 diarrhea
- Repleted as needed
Code status: DNR
Anticipated Discharge: Within 24 hours
Subjective/Interval History
-
Date of Service: July 24, 2024
Objective Data
-
Vital Signs:
Vital Signs
Temp Pulse Resp BP Pulse Ox
97.6 F 81 23 99
07/23/24 19:15 07/24/24 06:30 07/24/24 06:30 07/24/24 05:09 07/23/24 08:33
I&O
07/23/24 07/24/24 07/25/24
06:59 06:59 06:59
Intake Total 1675.3 / 1739.2 182.5 / 182.5
Output Total 2419 / 2424 65 / 65
Balance -743.7 / -684.8 117.5 / 117.5
--- NOTE | 2024-07-24 14:05 | HOSPNOTE ---
Went to see patient, patient appears comfortable at this time, does appear imminent.
--- NOTE | 2024-07-24 14:11 | W.PN.UPDATE ---
Update Note
Progress Note Update
Seen and examined by me independently in collaboration with the medical doctor.
Lab data and imaging data reviewed.
Addendum as below :
Patient currently on comfort measures.
Patient unresponsive but comfortable. Received 3 doses of IV Ativan and 2 doses of IV morphine so far for comfort. Daughter at bedside states her to be comfortable.
Low blood pressure noted.
Continue with current comfort measures.
seems impending.
--- NOTE | 2024-07-24 15:09 | CM ---
Patient seen at bedside earlier today with patient family member present. No needs at this time. CM will continue to follow for discharge planning needs.
Plan; comfort care/hospice
[2024-07-24] MEDS: ROBINUL 0.2 MG IV (21:44)
[2024-07-24] MEDS: NSS (PRESERVATIVE FREE) 0.5 ML IV (21:44)
--- NOTE | 2024-07-25 08:00 | PTCARENOTE ---
Received pt with eyes closed.Unresponsive to stimulus.CPOT 1.SR noted.Slight tachypnea noted.Morphine given as ordered.Anuric.Pt's daughter at bedside.Plan of care discussed.
[2024-07-25] MEDS: MORPHINE SULFATE 1 MG IV ×2 (08:39→15:24)
--- NOTE | 2024-07-25 08:41 | W.PN.UPDATE ---
Update Note
Progress Note Update
Patient currently on comfort measures.
Patient is unresponsive and comfortable. Slight tachypnea noted. Blood pressure in 30s. Heart rate in 90s.
Will give a dose of IV morphine and watch out for any further tachypnea or any other distress or discomfort.
Discussed with daughter and RN.
Continue with current comfort measures.
[2024-07-25] MEDS: ROBINUL 0.2 MG IV (11:14)
[2024-07-25 11:22] VITALS: BP 46/32
--- NOTE | 2024-07-25 12:34 | PTCARENOTE ---
Pt assessed.No change in assessment noted.Jozef given earlier for slight gurgling upon expiration.
--- NOTE | 2024-07-25 16:04 | PTCARENOTE ---
Asystole noted.Pt does not have pulse or respirations.Dr Rizvi made aware.Pt's daughter at bedside.
--- NOTE | 2024-07-25 16:37 | W.PN.DEATH ---
Pronouncement of
-
Called to see patient to pronounce.
No spontaneous heart tones or respirations noted.
Patient not responsive to verbal stimuli.
No neurological signs of life present
Patient is pronounced .
Time of : 15:53
Date of : 07/25/24
Cause of : Septic shock secondary to C. difficile colitis
Family Notified: Yes
== END 2024-07-25 15:53 | disposition expired | DRG 871 ==
LOC: ICU 18:05
PROVIDERS: Internal Medicine; Nurse Practitioner Adult Health; Nurse Practitioner Family; Nurse Practitioner Primary Care; Physician Assistant; Specialist; ADMITTING PHYSICIAN Internal Medicine; ATTENDING PHYSICIAN Internal Medicine; CONSULT PHYSICIAN Internal Medicine; CONSULT PHYSICIAN Internal Medicine Cardiovascular Disease; CONSULT PHYSICIAN Internal Medicine Critical Care Medicine; CONSULT PHYSICIAN Internal Medicine Hematology & Oncology; EMERGENCY PHYSICIAN Student in an Organized Health Care Education/Training Program; FAMILY PHYSICIAN Internal Medicine; OTHER PHYSICIAN Student in an Organized Health Care Education/Training Program; OTHER PHYSICIAN Surgery
PROC: 5A1D90Z Performance of Urinary Filtration, Continuous, Greater than 18 hours Per Day (ICD-10-PCS; 2024-07-15)
PROC: 5A1D70Z Performance of Urinary Filtration, Intermittent, Less than 6 Hours Per Day (ICD-10-PCS; 2024-07-15)
PROC: 02HV33Z Insertion of Infusion Device into Superior Vena Cava, Percutaneous Approach (ICD-10-PCS; 2024-07-16)
PROC: 30233R1 Transfusion of Nonautologous Platelets into Peripheral Vein, Percutaneous Approach (ICD-10-PCS; 2024-07-21)
PROC: 30233K1 Transfusion of Nonautologous Frozen Plasma into Peripheral Vein, Percutaneous Approach (ICD-10-PCS; 2024-07-21)
PROC: 30233N1 Transfusion of Nonautologous Red Blood Cells into Peripheral Vein, Percutaneous Approach (ICD-10-PCS; 2024-07-22)
DX: A41.4 Sepsis due to anaerobes (principal); N18.6 End stage renal disease; R65.21 Severe sepsis with septic shock; A04.72 Enterocolitis due to Clostridium difficile, not specified as recurrent; E87.1 Hypo-osmolality and hyponatremia; E87.20 Acidosis, unspecified; D62 Acute posthemorrhagic anemia; I12.0 Hypertensive chronic kidney disease with stage 5 chronic kidney disease or end stage renal disease; Z51.5 Encounter for palliative care; Z66 Do not resuscitate; I95.3 Hypotension of hemodialysis; I48.0 Paroxysmal atrial fibrillation; J45.909 Unspecified asthma, uncomplicated; D63.1 Anemia in chronic kidney disease; E87.6 Hypokalemia; E83.42 Hypomagnesemia; L30.4 Erythema intertrigo; L89.322 Pressure ulcer of left buttock, stage 2; R79.1 Abnormal coagulation profile; E78.00 Pure hypercholesterolemia, unspecified; E88.09 Other disorders of plasma-protein metabolism, not elsewhere classified; D69.6 Thrombocytopenia, unspecified; E83.51 Hypocalcemia; E83.39 Other disorders of phosphorus metabolism; Z79.01 Long term (current) use of anticoagulants; Z79.899 Other long term (current) drug therapy; Z86.16 Personal history of COVID-19; Z87.01 Personal history of pneumonia (recurrent); Z87.891 Personal history of nicotine dependence; Z99.2 Dependence on renal dialysis
CPT/HCPCS: 71045; 74018; 74177; 80048; 80053; 80076; 82140; 82962; 83010; 83605; 83615; 83735; 83880; 83930; 83970; 84100; 84132; 85014; 85018; 85025; 85027; 85045; 85220; 85230; 85240; 85379; 85384; 85610; 85730; 86140; 86850; 86900; 86901; 86920; 87040; 87045; 87046; 87070; 87077; 87147; 87149; 87186; 87205; 87324; 87427; 87449; 87798; 93005; 94640; 97163; 97167; 97530; 99285; G0257; P9016; P9047; P9059; P9073; Q5106; Q9967